=== PATIENT | male | born 1955 | race Caucasian/White ===

== ENCOUNTER 2022-03-08 15:20 | Outpatient (REF) | payer MEDICARE, SELFPAY ==
[2022-03-08 16:15] LABS: Alanine Aminotransferase 44 U/L (0-40); Albumin Level 4.3 g/dL (3.5-5.0); Alkaline Phosphatase 87 U/L (39-117); Anion Gap 14 (12-20); Aspartate Amino Transferase 31 U/L (5-37); Bilirubin Direct 0.2 mg/dL (0.0-0.5); Bilirubin Total 0.5 mg/dL (0.0-1.0); Blood Urea Nitrogen 20 mg/dL (9-16); Calcium 9.6 mg/dL (8.4-10.2); Carbon Dioxide 26 mmol/L (22-29); Chloride 105 mmol/L (96-108); Estimated Glomerular Filt Rate 49; Glucose Random 88 mg/dL (60-115); Potassium 4.5 mmol/L (3.3-5.1); Rheumatoid Factor < 15.0 IU/mL (<15.0); Sodium 140 mmol/L (135-145); Total Protein 7.3 g/dL (6.5-8.0)
[2022-03-08 16:29] LABS: Erythrocyte Sedimentation Rate 10 MM/HR (0-15)
[2022-03-10 01:02] LABS: Lyme Abs Screen <0.90 index
[2022-03-13 19:32] LABS: Acetylcholine Recep Modulating 1
[2022-03-13 22:17] LABS: Acetylcholine Receptor Binding <0.30 nmol/L
[2022-03-13 23:52] LABS: Anti Nuclear Antibody Screen NEGATIVE (NEGATIVE)
[2022-03-16 00:17] LABS: Acetylcholine Recept. Blocking <15 (<15)
== END 2022-03-08 15:21 | disposition home or self-care (01) ==
LOC: HO.LAB 15:20
PROVIDERS: PCP Internal Medicine; Visit Provider Psychiatry & Neurology Neurology
DX: R25.2 Cramp and spasm (principal); H53.2 Diplopia
CPT/HCPCS: 36415; 80048; 80076; 82550; 83519; 85652; 86038; 86039; 86431; 86617; 86618

== ENCOUNTER → 2023-02-22 13:46 | Outpatient (BNVA) | payer MEDICARE, SELFPAY | PROVIDERS: PCP Internal Medicine; Visit Provider Physician Assistant | DX: M54.50 Low back pain, unspecified (principal); M25.552 Pain in left hip; M25.551 Pain in right hip; M79.604 Pain in right leg; M79.605 Pain in left leg; Z98.890 Other specified postprocedural states | CPT/HCPCS: 99212 ==

== ENCOUNTER 2023-06-03 12:44 | Outpatient (AMB) | payer MEDICARE, SELFPAY ==
--- NOTE | 2023-06-03 13:01 | MHC.OFFVIS ---
Intake Vital Signs 06/03/23 13:07 Height 6 ft 1 in Weight 235 lb 3.732 oz BMI 31.0 BP 143/74 H Blood Pressure Location Lt brachial Position Sitting Pulse 71 Pulse Source Pulse Oximeter Temp 96.8 F Temp Source Skin Pulse Oximetry (%) 97 Oxygen Delivery Method Room Air Intake Visit Reasons: Dorsalgia Intake Note: New patient here for back pain. c/o generalized joint and upper/lower extremety pain. Medical Service Representative Required: No Accompanied by: Self / Same As Patient Allergies atorvastatin Allergy (Verified 06/03/23 13:13) Muscle cramps HPI HPI Comments History of Present Illness Details The patient presents for evaluation of widespread pains, muscle spasm, catching of the muscles, and a positive rheumatoid factor. I had seen him almost 3 years ago for similar complaints. There was no obvious sign of any inflammatory arthritis. There was evidence for osteoarthritis particularly in the cervical and lumbar spinal regions. He has seen numerous specialties for this problem including 2 neurologists, physical Medicine, back surgeons, and Orthopedics. He has had 2 neck surgeries and 1 lumbar surgery but he does not think his symptoms were much better after those. He presently takes gabapentin 100 b.i.d., lidocaine patches, p.r.n. lorazepam, and nighttime tizanidine. [facility] Medical History (Updated 06/03/23 @ 17:47 by Cheko Wiley MD) Asthma Chronic kidney disease, stage 3 COPD (chronic obstructive pulmonary disease) GERD (gastroesophageal reflux disease) High cholesterol History of dementia Sleep apnea Surgical History Hx of decompressive lumbar laminectomy Family History (Updated 06/03/23 @ 13:16 by YUE Ornelas) Mother Arthritis Father Arthritis Social History (Updated 06/03/23 @ 13:15 by YUE Ornelas) Household Members: Family Household Members Other:: cousin Alcohol intake: never Patient Tobacco Use Status: Never used Tobacco Current occupational status: unemployed Review of Systems Const Details: Fatigue with physical activity. Negative for appetite change, weight change, fever, chills, malaise Eyes Details: Some ocular dryness. Occasional headache. Occasional vertigo. Negative for vision changes ENT Details: Some oral dryness. Negative for hearing change, tinnitus, oral ulcer, nose bleeds. Card Details: Negative chest pain, edema and syncope Resp Details: History of asthma but no increase in SOB, cough and wheezing GI Details: Dark stools attributed to iron, some constipation and diarrhea alternating. Negative indigestion/heartburn, nausea, abdominal pain, bowel changes, and bloody stool. Details: Negative for dysuria, hematuria, nocturia, decreased force/flow and genital discharge Skin/Breast Details: Negative for itching, rash, hives, Raynaud's symptoms, sun sensitivity, and skin cancer Neuro Details: Describes episodes of muscle spasm and catching of muscles. This has been going on for years. Negative for epilepsy, palsy, stroke, changes in speech, tingling and weakness Psych Details: Treated for anxiety and depression. Endo Details: Negative for polyuria and polydypsia Tono/Lymph Details: Negative for excessive bruising or bleeding. Physical Exam Vital Signs: Last Vital Signs Temp 96.8 F 06/03/23 13:07 Pulse 71 06/03/23 13:07 BP 143/74 H 06/03/23 13:07 Pulse Ox 97 06/03/23 13:07 Oxygen Delivery Method Room Air 06/03/23 13:07 BMI result Body Mass Index 31.0 APPEARANCE: Patient in no acute distress EYES no redness, pupils equal and reactive to light, eyelids normal EARS: External ear normal, canal clear and tympanic membrane normal. NOSE/SINUS: Airflow through both nares, no nasal discharge, no bleeding THROAT: Oral mucosa moist, no ulcerations NECK: No thyromegaly or masses, no adenopathy, trachea midline. HEART: Regulrar rhythm, S1-S2 heard, no murmurs, rubs or gallops. LUNG: Clear to percussion and auscultation ABD: Normal bowel sounds, no organomegaly, masses or tenderness. EXTREMITIES: No edema, no calf tenderness, normal peripheral pulses. NEURO: Oriented and alert x3. No focal weakness. Reflexes symmetric. Gait normal. SKIN: No inflammatory or neoplastic lesions. The nails look normal. Finger tips and toe tips have normal color and turgor JOINT EXAM:?? Cervical Spine: The very limited range of motion, perhaps 10 degrees and lateral flexion and 15 degrees with rotation. With his heels to the wall he lacks about 10 cm from him being able to touch the occiput against the wall. Thoracic Spine:.? No scoliosis.? No tenderness on palpation. Lateral Brennen's is normal. Lumbar Spine:.? Alignment normal.? Brennen's test is 0. He flexes at the hips. Chest Wall:.? No tenderness, swelling, increased warmth or erythema. Hands:.? Right: There is slight bony enlargement at the 2nd and 3rd DIP and the 1st IP. The joints are not tender. No sensory loss, thenar atrophy or flexor tendon triggering. Left: Nontender bony enlargement at the thumb IP, 2nd PIP, 2nd and 3rd D IP's. No MCP swelling or tenderness, triggering, thenar atrophy or sensory loss. Wrists:.? Pain-free flexion extension to 75 degrees. No tenderness, swelling, increased warmth or erythema. Elbows:. Normal pain-free range of motion without tenderness, swelling, increased warmth or erythema. Shoulders:.?? Full range of motion with mild discomfort at the extremes. This is mostly felt in the axillary region and over the trapezius. There is some trapezial muscle tenderness but no abductor weakness, swelling, increased warmth or erythema. Hips:.? Full range of motion with mild discomfort in the lumbar region with extremes of abduction and external rotation. No groin pain with motion. Hip bursa:.? Mild trochanteric tenderness. Knees:.?? Normal pain-free range of motion without tenderness, swelling, increased warmth or erythema.? There is no effusion or crepitation Ankles:.? Normal pain-free range of motion without tenderness, swelling, increased warmth or erythema. Feet:.? Normal pain-free range of motion with mild 1st MTP bony enlargement without tenderness. No other areas of tenderness, swelling, increased warmth or erythema. Tender points:.? Mild tenderness to digital palpation at the occiput, trapezius, second rib, lateral epicondyle, knees, greater trochanter and gluteal area bilaterally. ? Results Reviewed Results Reviewed: 05/22/2023 lab work from [place]: Hemoglobin 15, white count 6000, platelet count [id number], ESR 33, creatinine 1.5, transaminases normal, iron saturation 21%, Lyme disease antibody negative, JACINTA negative. Rheumatoid factor positive at 21 Laboratory Tests 03/08/22 03/08/22 15:45 15:45 Total Creatine Kinase 352 H Rheumatoid Factor < 15.0 JACINTA Screen NEGATIVE [facility] Result Report Patient: Pete Ceballos Date of Service: 02/17/19 ? ? Patient Gender: Male Ordering Provider: Pete Gonzalez : 1955 ? ? ? Final MRI OF LUMBAR SPINE NO CONTRAST Exam Date: 02/17/2019 3:10 PM Ordering Diagnosis: Lumbar radiculitisChronic bilateral low back pain with bilateral sciaticaSpinal stenosis of lumbar region with neurogenic claudication ? MRI LUMBAR SPINE WITHOUT IV CONTRAST ? INDICATION: Low back pain, lumbar radiculitis, right worse than left, spinal stenosis. ? TECHNIQUE: Multiplanar, multisequence MRI of the lumbar spine was performed without IV contrast. ? COMPARISON: Multiple prior MRI lumbar spine studies, most recent dated 11/17/2015. ? FINDINGS: ? The conus medullaris terminates at the L1 level, and demonstrates normal signal. There is multilevel central clumping of cauda equina nerve roots without thickening. ? There is loss of expected T2 intervertebral disc signal at all levels from L2-3 through L5-S1, representing multilevel disc degeneration. Loss of intervertebral disc height with adjacent endplate irregularity and degenerative Modic signal changes at the L3-4 and L4-5 levels appears similar compared to 11/17/2015. Several small Schmorl's nodes, including along the superior endplates of L3 and L4 are also similar. Minimal degenerative patchy bone marrow edema along the inferior endplate of L3. Otherwise, no focal bone marrow edema, evidence of acute fracture or subluxation. Shortened pedicles throughout with diffuse congenital narrowing of the spinal canal. Peripherally T1/T2 hypointense, centrally T2 hyperintense lesion within the right iliac bone, adjacent to the sacroiliac joint corresponds to benign-appearing, sclerotic rimmed lesion on CT scan from 05/26/2018. ? Evaluation of individual disc levels is as follows: ? At T12-L1, no significant disc herniation, spinal canal stenosis, or neuroforaminal narrowing. The T12-L1 level is included only on the sagittal images. ? At L1-L2, minimal diffuse disc bulge with superimposed small central disc protrusion indents the ventral thecal sac. Mild bilateral facet and ligamentous hypertrophy. Overall, mild spinal canal stenosis with mild bilateral neural foraminal narrowing. No definite focal nerve root compression. The L1-L2 level is included only on the sagittal images. ? At L2-L3, diffuse disc bulge with superimposed central disc protrusion with slight craniad extrusion, extending 4.3 mm posterior to the L2 vertebral body results in indentation of the ventral thecal sac. When combined with bilateral facet and ligamentous hypertrophy, there is severe spinal canal stenosis with central clumping of cauda equina fibers and effacement of CSF signal (axial series 601, image 30/34), progressed slightly compared to the 2016 exam. There is [id number] bilateral neuroforaminal narrowing with close approximation of hypertrophied facet joints and the exiting bilateral L2 nerve roots (sagittal series 301, images 6 and 14/19). No definite focal compression of the exiting nerve roots. ? At L3-L4, loss of intervertebral disc height, diffuse disc bulge and prominent posterior and lateral endplate spurring combined with bilateral facet/ligamentous hypertrophy to produce moderate to severe spinal canal stenosis with narrowing of both lateral recesses, similar in appearance compared to 11/17/2015. There is moderate bilateral neuroforaminal narrowing with close approximation of disc material or osteophyte and the exiting bilateral L3 nerve roots (sagittal series 301, images 4, 5, 14 and 15/19). ? At L4-L5, loss of intervertebral disc height, diffuse disc bulge, and prominent posterior and lateral endplate spurring combined with bilateral facet/ligamentous hypertrophy to produce moderate spinal canal stenosis with narrowing of both lateral recesses. There is moderate bilateral neuroforaminal narrowing with close approximation of disc material or osteophyte and the exiting bilateral L4 nerve roots (sagittal series 301, images 5 and 16/19). ? At L5-S1, diffuse disc bulge, bilateral facet and ligamentous hypertrophy result in mild spinal canal stenosis with mild bilateral, left greater than right, neural foraminal narrowing. Close approximation of disc material and the exiting bilateral L5 nerve roots (sagittal series 301, images 4 and 15/19). No definite focal nerve root compression. Ovoid, T2 hyperintense synovial cyst projects posteromedially from the right facet joint measuring up to 1.1 cm (sagittal series 501, image 10/15). ? Ovoid, T2 hyperintense cyst at the left kidney is incompletely included on the zganz-jt-vkaj, measuring at least 4.3 x 5 cm, better characterized on prior CT scan from 05/26/2018. The remaining included intra-abdominal structures and paraspinal soft tissues are unremarkable. ? IMPRESSION IMPRESSION: 1. Multilevel discogenic and degenerative changes, as detailed above, with slight interval progression compared to the 2016 exam. There is now severe spinal canal stenosis with central clumping of cauda equina fibers at the L2-3 level. Moderate to severe spinal canal stenosis at L3-4 with moderate spinal canal stenosis at L4-5. 2. Moderate bilateral neuroforaminal narrowing at L3-4 and L4-5. Xpkk-dz-vbykagac bilateral neural foraminal narrowing at L2-3. There is close approximation of disc material, osteophyte or hypertrophied facet joints and several exiting nerve roots, as detailed above, without definite compression. 3. Additional findings, as above, including large left renal cyst, partially included on the clita-ku-bxyu. ? Reading Radiologist: Cc: Assessment & Plan Assessment & Plan (1) Back pain: Code(s): M54.9 - Dorsalgia, unspecified (2) Muscle stiffness: Code(s): M62.89 - Other specified disorders of muscle (3) Rheumatoid factor positive: Code(s): R76.8 - Other specified abnormal immunological findings in serum Plan The patient has a positive rheumatoid factor but no signs of active rheumatoid arthritis on exam. His longstanding widespread pains without signs of inflammation suggest osteoarthritis and the many tender points suggest some degree of fibromyalgia. I do not have images to review but the thoracic spine image I was able to see does show significant osteophytes in the thoracic spine suggesting some element of DISH. The limited motion in the lumbar and cervical spine regions would also be consistent with DISH but also be consistent with a spondyloarthritis that had led to lumbar and cervical fusion. We will check some sacroiliac films to see if he has evidence for sacroiliitis. I am going to add also add ESR, HLA-B 27, CRP and an anti-JOHNNIE antibody to evaluate for possible stiff man syndrome. I think this is a relatively rare entity but given his complaint of muscles freezing up that is a reasonable thing to pursue. Other than that I do not have other suggestions other than to ask him to try to remain physically active. We will get back to him with the results of the studies. Review of his [place] record with multiple software consultant notes, today's exam and discussion took 46 minutes. Orders: Orders C Reactive Protein Today M54.9 - Dorsalgia, unspecified Complete Blood Count Auto Diff Today M54.9 - Dorsalgia, unspecified Erythrocyte Sedimentation Rate Today M54.9 - Dorsalgia, unspecified HLA B27 Today M54.9 - Dorsalgia, unspecified XR sacroiliac joint min 3V Today M54.9 - Dorsalgia, unspecified Glutamic acid decarboxylase Ab Today M62.89 - Other specified disorders of muscle Coding Level of Care Code Est Pt Level 5 (44682) Diagnoses Back pain M54.9 Muscle stiffness M62.89 Rheumatoid factor positive R76.8
[2023-06-03 13:07] VITALS: BP 143/74; PULSE 71; TEMP 36; O2SAT 97; BMI 31.0
== END 2023-06-03 14:50 | disposition home or self-care (01) ==
PROVIDERS: PCP Internal Medicine; Referring Provider Internal Medicine; Visit Provider Internal Medicine Rheumatology
DX: M54.9 Dorsalgia, unspecified (principal); M05.79 Rheumatoid arthritis with rheumatoid factor of multiple sites without organ or systems involvement; M62.89 Other specified disorders of muscle; R76.8 Other specified abnormal immunological findings in serum
CPT/HCPCS: 99215

== ENCOUNTER 2023-06-03 12:44 | Outpatient (REF) | payer MEDICARE, SELFPAY ==
[2023-06-03 15:16] LABS: MANUAL DIFF FLAG NO
[2023-06-03 16:51] LABS: Basophils Absolute Auto 0.1 X10*3/uL (0.0-0.2); Basophils Percent Auto 0.8 % (0-2); Eosinophils Absolute Auto 0.1 X10*3/uL (0.0-0.4); Eosinophils Percent Auto 1.2 % (0-4); Hematocrit 46.6 % (42.0-52.0); Hemoglobin 15.5 g/dl (14.0-18.0); Imm Gran Abs Auto 0.03 X10*3/uL (0.00-0.03); Imm Gran Pct Auto 0.4 % (0.0-0.4); Lymphocytes Absolute Auto 2.1 X10*3/uL (1.2-4.9); Lymphocytes Percent Auto 28.6 % (20-40); Mean Corpuscular HGB Conc 33.3 g/dl (31.0-36.0); Mean Corpuscular Hemoglobin 29.9 pg (27.0-33.0); Mean Corpuscular Volume 89.8 fL (80.0-98.0); Mean Platelet Volume 10.8 fL (9.4-12.4); Monocytes Absolute Auto 0.6 X10*3/uL (0.1-1.2); Monocytes Percent Auto 8.4 % (2-11); Neutrophils Absolute Auto 4.5 x10*3/uL (2.0-8.3); Neutrophils Percent Auto 60.6 % (45-73); Platelet Count 223 X10*3/uL (160-400); Red Blood Count 5.19 X10*6/uL (4.60-5.80); Red Cell Distribution Width 13.4 % (11.0-16.0); White Blood Count 7.4 X10*3/uL (4.8-10.8)
[2023-06-03 17:29] LABS: Erythrocyte Sedimentation Rate 13 MM/HR (0-15)
[2023-06-03 17:44] LABS: C Reactive Protein 0.53 mg/dL (< or = 0.50)
[2023-06-06 19:08] LABS: Glutamic acid decarboxylase Ab <5 IU/mL (<5)
== END 2023-06-03 12:45 | disposition home or self-care (01) ==
LOC: HO.LAB 12:44
PROVIDERS: PCP Internal Medicine; Visit Provider Internal Medicine Rheumatology
DX: M54.9 Dorsalgia, unspecified (principal); M62.89 Other specified disorders of muscle; R76.8 Other specified abnormal immunological findings in serum
CPT/HCPCS: 36415; 85025; 85652; 86140; 86341; 86812; 99212

== ENCOUNTER 2023-06-19 12:51 | Outpatient (REF) | payer MEDICARE, SELFPAY ==
--- NOTE | ~2023-06-19 | XR_ITS ---
EXAMINATION: XR SACROILIAC JOINTS CLINICAL INFORMATION: There are some larger, unspecified COMPARISON: None available. TECHNIQUE: 3 views of the sacroiliac joints FINDINGS: Mineralization is normal. No fracture is seen. The sacroiliac joints are well-maintained. There is mild adjacent sclerosis. Degenerative disc and facet disease is noted in the lumbar spine. The hip joints are well-maintained but there is mild marginal spurring of the acetabulum, greater on the right. No significant soft tissue abnormality is seen. XR/XR sacroiliac joint min 3V IMPRESSION: Mild degenerative changes in sacroiliac joints. Lower lumbar degenerative disc and facet disease. Mild osteoarthritis in the hips, greater on the right.
== END 2023-06-19 12:52 | disposition home or self-care (01) ==
LOC: HO.XRAY 12:51
PROVIDERS: Visit Provider Internal Medicine Rheumatology
DX: M54.9 Dorsalgia, unspecified (principal)
CPT/HCPCS: 72202

== ENCOUNTER 2024-03-06 12:49 | Outpatient (AMB) | payer MEDICARE, SELFPAY ==
--- NOTE | 2024-03-06 13:09 | A.SPINEOV_ITS ---
Intake Visit Reasons: 2nd opinion on MRI Intake Note: Mr. Ceballos is here today for a 2nd opinion on MRI/[facility]. 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 HPI: This 68-year-old male underwent a previous anterior diskectomy and fusion C3-C5 for severe spinal cord compression. He also underwent a lumbar decompression L4-5 for neurogenic claudication. He returns to my office complaining of severe neck pain radiating to shoulders and up to his posterior neck to his forehead. He also has tingling in his arms. And spasticity of his lower legs. Second complaint is pain going down his legs with walking and standing that improves when he sits down. He saw an orthopedic surgeon at [facility] that wants to give him a posterior instrumented fusion to correct his cervical deformity Physical Exam: An upright position there is a cervical deformity in the sagittal plane. Radiological Studies: MRI of the cervical and lumbar spine done at [facility] on 02/19/2024 show a progression of his cervical deformity in the sagittal plane compared to an MRI of 2021. There is an old myelomalacia. No spinal cord compression. The MRI of the lumbar spine shows severe spinal stenosis L3-4. An x-ray of the cervical spine with a flexion-extension shows auto fusion of C6- 7 and C7-T1 and beginning of an auto fusion at C5-C6. The x-rays also suspicious for auto fusion of the C5-6 and C6-7 facet joints. 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 He was offered a posterior instrumented fusion of the cervical thoracic region to correct the deformity. I do not see how you can correct the deformity when there is auto fusion going on on the frontal part of the spine. To make it more complicated I also think there is auto fusion going on of the posterior part of the spine. This will mean that you 1st have to release the posterior auto fusion followed by release of the anterior fusion with placement of cages and then go back posteriorly to perform the posterior instrumentation if you really want to correct the deformity. I am going to order a CT of the cervical spine to assess the amount of auto fusion before I give him my final surgical pain on the neck. As far as the lumbar spine, I offered him an L3-4 lumbar decompression. I will see the patient after the CT is done. Thank you for allowing me to participate in your patients care. total time spent was 50 minutes in counseling ,coordination of plan, personal review of imaging, surgical decision making and subsequent plan Mitchell Tapia MD, PhD Spine Fellowship Trained Neurosurgeon Director, [facility] Orders: Orders XR cervical spine 2V Today M43.8X2 - Other specified deforming dorsopathies, cervical region CT cervical spine wo IV con Today M43.8X2 - Other specified deforming dorsopathies, cervical region Coding Level of Care Code New Pt Level 4 (58088) Diagnoses [place] neck deformity of cervical spine M43.8X2 Lumbar stenosis with neurogenic claudication M48.062
== END 2024-03-06 14:19 | disposition home or self-care (01) ==
PROVIDERS: PCP Internal Medicine; Visit Provider Neurological Surgery
DX: M43.8X2 Other specified deforming dorsopathies, cervical region (principal); M48.062 Spinal stenosis, lumbar region with neurogenic claudication
CPT/HCPCS: 99204

== ENCOUNTER 2024-03-06 12:49 | Outpatient (REF) | payer MEDICARE, SELFPAY ==
--- NOTE | ~2024-03-06 | XR_ITS ---
EXAMINATION: XR CERVICAL SPINE CLINICAL INFORMATION: Pain cervical region. COMPARISON: None available. TECHNIQUE: 4 views of the cervical spine inclusive of flexion, extension and neutral lateral views as well as an AP view. FINDINGS: Status post ACDF with hardware spanning the C3-C4-C5 levels as well as interdisc devices. Prominent spondylosis in the remainder of cervical spine with loss of disc space height most notable at C6-C7. At C5-C6 there is a kyphosis which is not reduced with extension. Degenerative changes between the anterior arch of C1 and the odontoid. XR/XR cervical spine 2V IMPRESSION: 1. Status post ACDF with hardware spanning the C3-C4-C5 levels as well as interdisc devices. 2. Prominent spondylosis in the remainder of cervical spine with loss of disc space height most notable a C6-C7.
== END 2024-03-06 12:50 | disposition home or self-care (01) ==
LOC: HO.HOSX 12:49
PROVIDERS: PCP Internal Medicine; Visit Provider Neurological Surgery
DX: M43.8X2 Other specified deforming dorsopathies, cervical region (principal); M48.062 Spinal stenosis, lumbar region with neurogenic claudication
CPT/HCPCS: 72040; 99202

== ENCOUNTER 2024-04-01 07:33 | Outpatient (REF) | payer MEDICARE, SELFPAY ==
--- NOTE | ~2024-04-01 | CT_ITS ---
EXAMINATION: CT CERVICAL SPINE WITHOUT CONTRAST CLINICAL INFORMATION: Deforming dose opacities, cervical region COMPARISON: Cervical spine radiographs on 03/06/2024. TECHNIQUE: Multidetector CT acquisitions of the cervical spine without administration of intravenous contrast. This CT examination was performed using dose optimization techniques as appropriate, variously including the following: *Automated exposure control *Adjustment of mA and/or kV according to patient size (this includes techniques or standardized protocols for targeted exams where dose is matched to indication/reason for exam; i.e. extremities or head) *Use of iterative reconstruction technique DLP: 415 mGy-cm FINDINGS: Motion artifact is present. Reversal of the normal cervical lordosis. No listhesis. Sequelae of anterior spinal fusion at C3-C4 and C4-C5. There is osseous bridging at these levels. The hardware is intact without fracture or perihardware lucency to suggest loosening or infection. The vertebral body heights are preserved. Moderate to severe disc height loss at C7-T1. DISH. Please note that evaluation is limited in the absence of intrathecal contrast material. Within these limitations, C2-C3: Disc osteophyte complex, bilateral uncovertebral hypertrophy, and bilateral facet arthrosis. Severe right and moderate left neural foraminal narrowing. No significant spinal canal stenosis. C3-C4: Disc osteophyte complex, bilateral uncovertebral hypertrophy, and bilateral facet arthrosis. Mild spinal canal stenosis. Mild bilateral neural foraminal narrowing. C4-C5: Disc osteophyte, disc, bilateral uncovertebral hypertrophy, and bilateral facet arthrosis. Mild spinal canal stenosis. Mild right neural foraminal narrowing. C5-C6: Disc osteophyte complex, bilateral uncovertebral hypertrophy, and bilateral facet arthrosis. Mild left neural foraminal narrowing. No significant spinal canal stenosis. C6-C7: Disc osteophyte complex, bilateral uncovertebral hypertrophy, and bilateral facet arthrosis. No significant spinal canal or neural foraminal narrowing. C7-T1: Disc osteophyte complex, bilateral uncovertebral hypertrophy, and bilateral facet arthrosis. No significant spinal canal or neural foraminal narrowing. The paravertebral soft tissues are unremarkable. The visualized lung apices are clear. CT/CT cervical spine wo IV con IMPRESSION: -Sequelae of anterior spinal fusion at C3-C4 and C4-C5 without evidence of acute hardware failure. -Multilevel degenerative changes throughout the cervical spine with mild spinal canal stenosis at C3-C4 and C4-C5. Neural foraminal narrowing is worst and severe at C2-C3 on the right.
== END 2024-04-01 07:34 | disposition home or self-care (01) ==
LOC: HO.CT 07:33
PROVIDERS: PCP Internal Medicine; Visit Provider Neurological Surgery
DX: M43.8X2 Other specified deforming dorsopathies, cervical region (principal)
CPT/HCPCS: 72125

== ENCOUNTER 2024-04-24 13:48 | Outpatient (AMB) | payer MEDICARE, SELFPAY ==
--- NOTE | 2024-04-24 14:14 | A.SPINEOV_ITS ---
Intake Visit Reasons: CT follow up Intake Note: Mr. Ceballos is her today to f/u Re: his CT Scan. Curriculum Director Required: No Allergies atorvastatin Allergy (Verified 06/03/23 13:13) Muscle cramps Assessment & Plan Assessment & Plan (1) [place] neck deformity of cervical spine: Code(s): M43.8X2 - Other specified deforming dorsopathies, cervical region Category: Medical Plan Dear colleague, On April 24, 2024 saw for follow-up Pete Ceballos for intolerable neck pain due to a neck deformity. He was offered a posterior decompression with instrumentation and our institution. I thought this was not a good option as he looked fused from anteriorly and posteriorly. I proved this with a CT scan that shows he has an auto fusion of C5-6 and C6-7 as well as the posterior facet joints. Therefore he needs a posterior release of the facet joints with instrumentation followed by an anterior diskectomy fusion C5-6 and C6-7 to obtain a correction of his deformity. I reviewed the imaging with the patient and his daughter and explained my rationale behind the plan. He wants to proceed. He will be scheduled for July 2024. 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 He also needs to discontinue his baby aspirin. I spent 25 minutes in his consult to review imaging and discussing plan of care. Mitchell Tapia MD, PhD Spine Fellowship Trained Neurosurgeon Director, [facility] Coding Level of Care Code Est Pt Level 2 (16677) Diagnoses Ideal neck deformity of cervical spine M43.8X2
== END 2024-04-24 15:00 | disposition home or self-care (01) ==
PROVIDERS: PCP Internal Medicine; Visit Provider Neurological Surgery
DX: M43.8X2 Other specified deforming dorsopathies, cervical region (principal)
CPT/HCPCS: 99212

== ENCOUNTER → 2024-04-24 13:48 | Outpatient (BNVA) | payer MEDICARE, SELFPAY | PROVIDERS: PCP Internal Medicine; Visit Provider Neurological Surgery | DX: M43.8X2 Other specified deforming dorsopathies, cervical region (principal) | CPT/HCPCS: 99212 ==

== ENCOUNTER 2024-06-10 14:20 | Outpatient (AMB) | payer MEDICARE, SELFPAY ==
--- NOTE | 2024-06-10 14:21 | A.SPINEOV_ITS ---
Intake Visit Reasons: discuss disease of spine Intake Note: Mr. Ceballos is here to discuss diagnosis. 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 He comes in complaining of diffuse pains in his arms or legs with restless legs and arms at night and stabbing pains in his hips. I told him that this could all be related to his previous spinal cord compression but that I do not have a solution for all these symptoms. A briefly discuss the upcoming surgery to correct his cervical deformity. We will also make a preoperative appointment with the assembler aircraft power plant. Unfortunately, I do not have the answers that he is looking for. Mitchell Tapia MD, PhD Spine Fellowship Trained Neurosurgeon Director, [facility] Coding Level of Care Code Est Pt Level 2 (76118) Diagnoses [place] neck deformity of cervical spine M43.8X2
== END 2024-06-10 15:29 | disposition home or self-care (01) ==
PROVIDERS: PCP Internal Medicine; Visit Provider Neurological Surgery
DX: M43.8X2 Other specified deforming dorsopathies, cervical region (principal)
CPT/HCPCS: 99212

== ENCOUNTER → 2024-06-10 14:20 | Outpatient (BNVA) | payer MEDICARE, SELFPAY | PROVIDERS: PCP Internal Medicine; Visit Provider Neurological Surgery | DX: M43.8X2 Other specified deforming dorsopathies, cervical region (principal) | CPT/HCPCS: 99212 ==

== ENCOUNTER 2024-07-29 06:20 | Observation (INO) | payer MEDICARE, SELFPAY ==
[2024-07-15 11:19] VITALS: BMI 31.2
--- NOTE | 2024-07-21 13:23 | HO.ANESPROP2 ---
Documented by User: Cande Murillo NP 07/24/24 14:01 HPI - Anesthesia Eval Consult details Narrative: 68yo M for C5-6,C6-7 Posterior Foraminotomy/Facetectomy, Ant Cerv Discectomy w/ fusion Lateral Mass Screws at C5-T1, 07/29/24 Follow [facility]. Optimized for surgery. (Nuc stress d/t patient complaint of GIFFORD done 07/2024 was WNL ) Follows pulmo for NEO and COPD/asthma. Stable at 04/2024 with CPAP use QHS and rare albuterol use. PMF Active Problems Active Problems: All Active Problems Lumbar stenosis with neurogenic claudication (Acute) [place] neck deformity of cervical spine (Acute) Rheumatoid factor positive (Acute) Muscle stiffness (Acute) Back pain (Acute) Past Medical History Medical History (Updated 07/15/24 @ 10:48 by Fany Freitas, RN) Fatty liver Thoracic and lumbosacral neuritis Abnormality of gait Dysplastic nevi Tear of supraspinatus tendon Renal cyst Adjustment disorder with mixed anxiety and depressed mood Mixed hyperlipidemia Cognitive impairment Lung nodule Cervical radiculopathy Spinal stenosis of lumbar region Nuclear sclerosis of both eyes Elevated PSA Disorder of both eustachian tubes Bilateral tinnitus Cellulitis of left ear Posterior rhinorrhea Dizziness and giddiness Habitual snoring Obesity (BMI 30-39.9) Methacholine challenge positive Gallbladder polyp Hepatomegaly Dysphagia Otalgia of both ears Cervical spinal stenosis Acute frontal sinusitis Bilateral acute serous otitis media Chronic pharyngitis Muscle cramps Herpes simplex infection Sensorineural hearing loss of both ears Migraine Neck pain Mixed conductive and sensorineural hearing loss of right ear Heart murmur Dyspnea on exertion HTN (hypertension) Arthritis Impingement syndrome of shoulder region Incomplete tear of right rotator cuff Epigastric discomfort Osteoarthritis Peripheral neuropathy Sensation of lump in throat Allergic rhinitis Lumbar radiculopathy Muscle twitch Sleep apnea Asthma COPD (chronic obstructive pulmonary disease) High cholesterol GERD (gastroesophageal reflux disease) Chronic kidney disease, stage 3 History of dementia Family History Family History (Updated 06/03/23 @ 13:16 by YUE Correia) Mother Arthritis Father Arthritis Surgical History Surgical History (Updated 07/14/24 @ 08:35 by Fany Freitas, CARRI) Hx of nasal septoplasty Hx of umbilical hernia repair History of esophagogastroduodenoscopy (EGD) Hx of shoulder surgery Hx of neck surgery Hx of hernia repair H/O colonoscopy Status post lumbar spinal fusion Hx of decompressive lumbar laminectomy Social History Social History (Updated 06/03/23 @ 13:15 by YUE Correia) Household Members: Family Household Members Other:: cousin Are you a primary care manager to a significant other at home: No Do you presently have visiting nurse or other home services: No Alcohol intake: never Patient Tobacco Use Status: Never used Tobacco Use of substances other than those prescribed or required for medical reasons: No Have you been hit, kicked, punched, or otherwise hurt by someone within the past year? If so, by whom?: No Are you DNR?: No Advance Directives: No Advance Directives Information Provided: Yes Advance Directives on File: No Recently lost weight without trying: No Eating poorly because of decreased appetite: No Nutrition Risks: No Nutritional Risk Poor oral hygiene: No Current occupational status: unemployed Meds Allergies Allergy/AdvReac Type Severity Reaction Status Date / Time adhesive tape Allergy Itching Verified 07/29/24 06:20 atorvastatin Allergy Muscle Verified 07/29/24 06:20 cramps mite-Dermatophagoides Allergy Unknown Verified 07/29/24 06:20 farinae, thomas [dust mite - [place]] pravastatin Allergy Unknown Verified 07/29/24 06:20 Home Medications ?Medication ?Instructions ?Recorded ?Confirmed ?Last Taken ?Type albuterol sulfate 90 mcg/actuation 2 puff inhalation Q4-6H PRN 05/31/23 07/29/24 Unknown History aerosol inhaler Shortness Of Breath Or Wheezing cholecalciferol (vitamin D3) 25 25 mcg PO DAILY 05/31/23 07/29/24 Unknown History mcg (1,000 unit) tablet (Vitamin D3) dicyclomine 10 mg capsule 10 mg PO DAILY PRN Abdominal 05/31/23 07/29/24 Unknown History Discomfort ezetimibe 10 mg tablet 10 mg PO DAILY cholesterol 05/31/23 07/29/24 Unknown History losartan 25 mg tablet 25 mg PO DAILY 05/31/23 07/29/24 07/29/24 04:30 History tizanidine 4 mg tablet 4 mg PO BEDTIME 05/31/23 07/29/24 Unknown History aluminum-mag hydroxide-simethicone 30 ml PO QID PRN Acid Reflux 06/03/23 07/29/24 Unknown History 200 mg-200 mg-20 mg/5 mL oral susp (Valeria-Lanta) carboxymethylcellulose sodium 0.5 1 drp ophthalmic (eye) TID 06/03/23 07/29/24 Unknown History % eye drops in a dropperette cyanocobalamin (vitamin B-12) 1,000 mcg PO DAILY 06/03/23 07/29/24 Unknown History 1,000 mcg capsule evolocumab 140 mg/mL subcutaneous 140 mg subcut .every 14 days 06/03/23 07/29/24 Unknown History pen injector (Girma Waggoner) fluticasone 500 mcg-salmeterol 50 1 inh inhalation BID 06/03/23 07/29/24 Unknown History mcg/dose blistr powdr for inhalation (Wixela Inhub) hydrocortisone 2.5 % topical cream 1 appl topical .COMPLEX PRN Itching 06/03/23 07/29/24 Unknown History ketoconazole 2 % shampoo 1 appl topical 2XW PRN Skin 06/03/23 07/29/24 Unknown History Irritation lidocaine 5 % topical patch 1 patch topical DAILY PRN Pain 06/03/23 07/29/24 Unknown History magnesium citrate 100 mg tablet 100 mg PO DAILY 06/03/23 07/29/24 Unknown History montelukast 10 mg tablet 10 mg PO BEDTIME PRN Allergy 06/03/23 07/29/24 Unknown History Symptoms pantoprazole 20 mg tablet,delayed 20 mg PO .COMPLEX 06/03/23 07/29/24 07/29/24 04:30 History release zinc gluconate 50 mg tablet 25 mg PO DAILY 06/03/23 07/29/24 Unknown History multivitamin 1 tab PO DAILY 07/15/24 07/29/24 Unknown History Exam Height,Weight and Vital Signs: Height 6 ft Weight 104.326 kg Pertinent Lab Results Pertinent Lab Results: CMP and CBC 04/2024 OK from outside facility (within pcp note) Creat 1.5 (CKD 3) Narrative Narrative: EKG 07/2024 NSR @ 76 Low volt QRS Septal infarct No signif change per community center worker Nuc Stress 07/2024 Nml perfusion with no defect to suggest ischmia or infarct. Nml LV function. ECHO 07/2024 Definity contrast used to delineate endocardial borders. Nml LV chamber size, concentric hypertrophy, nml regional wma, EF 60-65%, trace mitral insufficiency, mild dilatation of ascending aorta. No change c/w previous. Assessment and Plan Assessment Anesthesia Assessment: Chart Reviewed Documented by User: Alicia Goodwin MD 07/29/24 08:58 [facility] Past Medical History Medical History (Updated 07/15/24 @ 10:48 by Fany Freitas, RN) Fatty liver Thoracic and lumbosacral neuritis Abnormality of gait Dysplastic nevi Tear of supraspinatus tendon Renal cyst Adjustment disorder with mixed anxiety and depressed mood Mixed hyperlipidemia Cognitive impairment Lung nodule Cervical radiculopathy Spinal stenosis of lumbar region Nuclear sclerosis of both eyes Elevated PSA Disorder of both eustachian tubes Bilateral tinnitus Cellulitis of left ear Posterior rhinorrhea Dizziness and giddiness Habitual snoring Obesity (BMI 30-39.9) Methacholine challenge positive Gallbladder polyp Hepatomegaly Dysphagia Otalgia of both ears Cervical spinal stenosis Acute frontal sinusitis Bilateral acute serous otitis media Chronic pharyngitis Muscle cramps Herpes simplex infection Sensorineural hearing loss of both ears Migraine Neck pain Mixed conductive and sensorineural hearing loss of right ear Heart murmur Dyspnea on exertion HTN (hypertension) Arthritis Impingement syndrome of shoulder region Incomplete tear of right rotator cuff Epigastric discomfort Osteoarthritis Peripheral neuropathy Sensation of lump in throat Allergic rhinitis Lumbar radiculopathy Muscle twitch Sleep apnea Asthma COPD (chronic obstructive pulmonary disease) High cholesterol GERD (gastroesophageal reflux disease) Chronic kidney disease, stage 3 History of dementia Family History Family History (Updated 06/03/23 @ 13:16 by YUE Correia) Mother Arthritis Father Arthritis Surgical History Surgical History (Updated 07/14/24 @ 08:35 by Fany Freitas, RN) Hx of nasal septoplasty Hx of umbilical hernia repair History of esophagogastroduodenoscopy (EGD) Hx of shoulder surgery Hx of neck surgery Hx of hernia repair H/O colonoscopy Status post lumbar spinal fusion Hx of decompressive lumbar laminectomy History of Problems with Anesthesia: No Social History Social History (Updated 06/03/23 @ 13:15 by YUE Correia) Household Members: Family Household Members Other:: cousin Are you a primary care manager to a significant other at home: No Do you presently have visiting nurse or other home services: No Alcohol intake: never Patient Tobacco Use Status: Never used Tobacco Use of substances other than those prescribed or required for medical reasons: No Have you been hit, kicked, punched, or otherwise hurt by someone within the past year? If so, by whom?: No Are you DNR?: No Advance Directives: No Advance Directives Information Provided: Yes Advance Directives on File: No Recently lost weight without trying: No Eating poorly because of decreased appetite: No Nutrition Risks: No Nutritional Risk Poor oral hygiene: No Current occupational status: unemployed Meds Allergies Allergy/AdvReac Type Severity Reaction Status Date / Time adhesive tape Allergy Itching Verified 07/29/24 06:20 atorvastatin Allergy Muscle Verified 07/29/24 06:20 cramps mite-Dermatophagoides Allergy Unknown Verified 07/29/24 06:20 farinae, thomas [dust mite - [place]] pravastatin Allergy Unknown Verified 07/29/24 06:20 Home Medications ?Medication ?Instructions ?Recorded ?Confirmed ?Last Taken ?Type albuterol sulfate 90 mcg/actuation 2 puff inhalation Q4-6H PRN 05/31/23 07/29/24 Unknown History aerosol inhaler Shortness Of Breath Or Wheezing cholecalciferol (vitamin D3) 25 25 mcg PO DAILY 05/31/23 07/29/24 Unknown History mcg (1,000 unit) tablet (Vitamin D3) dicyclomine 10 mg capsule 10 mg PO DAILY PRN Abdominal 05/31/23 07/29/24 Unknown History Discomfort ezetimibe 10 mg tablet 10 mg PO DAILY cholesterol 05/31/23 07/29/24 Unknown History losartan 25 mg tablet 25 mg PO DAILY 05/31/23 07/29/24 07/29/24 04:30 History tizanidine 4 mg tablet 4 mg PO BEDTIME 05/31/23 07/29/24 Unknown History aluminum-mag hydroxide-simethicone 30 ml PO QID PRN Acid Reflux 06/03/23 07/29/24 Unknown History 200 mg-200 mg-20 mg/5 mL oral susp (Valeria-Lanta) carboxymethylcellulose sodium 0.5 1 drp ophthalmic (eye) TID 06/03/23 07/29/24 Unknown History % eye drops in a dropperette cyanocobalamin (vitamin B-12) 1,000 mcg PO DAILY 06/03/23 07/29/24 Unknown History 1,000 mcg capsule evolocumab 140 mg/mL subcutaneous 140 mg subcut .every 14 days 06/03/23 07/29/24 Unknown History pen injector (Girma Waggoner) fluticasone 500 mcg-salmeterol 50 1 inh inhalation BID 06/03/23 07/29/24 Unknown History mcg/dose blistr powdr for inhalation (Wixela Inhub) hydrocortisone 2.5 % topical cream 1 appl topical .COMPLEX PRN Itching 06/03/23 07/29/24 Unknown History ketoconazole 2 % shampoo 1 appl topical 2XW PRN Skin 06/03/23 07/29/24 Unknown History Irritation lidocaine 5 % topical patch 1 patch topical DAILY PRN Pain 06/03/23 07/29/24 Unknown History magnesium citrate 100 mg tablet 100 mg PO DAILY 06/03/23 07/29/24 Unknown History montelukast 10 mg tablet 10 mg PO BEDTIME PRN Allergy 06/03/23 07/29/24 Unknown History Symptoms pantoprazole 20 mg tablet,delayed 20 mg PO .COMPLEX 06/03/23 07/29/24 07/29/24 04:30 History release zinc gluconate 50 mg tablet 25 mg PO DAILY 06/03/23 07/29/24 Unknown History multivitamin 1 tab PO DAILY 07/15/24 07/29/24 Unknown History Exam Airway Mallampati Class: IV TM Dist: >3cm Neck ROM: Poor Loose/Missing/Broken Teeth: No Heart: RRR Lungs: CTA Assessment and Plan Assessment Anesthesia Assessment: Anesthesia Plan Discussed Final Anesthetic Review History of Problems with Anesthesia: No NPO: Yes ASA Class: II and III Final Preanesthetic Review: Meds/Allgs Chart Reviewed, Consent Obtained/Reviewed and Anes Risks/Benef Reviewed Patient Risk: Intermediate Procedure Risk: High Anesthetic Plan Anesthetic Plan: GA Disposition: Standard PACU
[2024-07-29] VITALS (11 sets, daily range): BP systolic 122–158; BP diastolic 60–85; PULSE 77–91; RESP 15–18; TEMP 36.1–36.9; O2SAT 94–99
--- NOTE | ~2024-07-29 | FL_ITS ---
EXAMINATION: INTRAOPERATIVE FLUOROSCOPY CERVICAL SPINE CLINICAL INFORMATION: C5-C7 post form C5-T1 ACDF. COMPARISON: CT cervical spine 04/01/2024. TECHNIQUE: Intraoperative fluoroscopic imaging was provided to Dr. Hugo Tapia during C5-T1 ACDF. Total radiographic images: 4 Exposure time: 25.5 seconds Dose area product: 2.8058 Gy-cm2 CT performed intraoperatively:No FINDINGS/ FL/FL guidance in OR IMPRESSION: Multiple intraoperative fluoroscopic images and/or radiographs demonstrate stages of C5-T1 ACDF. ACDF hardware is present as are posterior fusion screws and rods. Please see Dr. Tapia' operative note for detailed findings. Electronically signed by: Pierre De aL Torre MD 07/30/2024 12:22 PM EDT
--- NOTE | ~2024-07-29 | XR_ITS ---
EXAMINATION: XR CERVICAL SPINE CLINICAL INFORMATION: Status post cervical fusion. COMPARISON: Cervical spine CT dated 04/01/2024. Intraoperative fluoroscopic radiographs dated 07/29/2024. TECHNIQUE: AP and lateral views of the cervical spine. FINDINGS: Redemonstration of anterior fusion hardware at C3-C4 and C4-C5. Associated osseous fusion of the vertebral bodies and posterior elements is redemonstrated. Interval placement of anterior stabilization hardware at C5-C6 and C6-C7 with posterior stabilization hardware at C5 through C7 on the right and C5-C6 on the left. No hardware fracture. No perihardware lucency to suggest loosening or infection. No acute fracture or dislocation. No concerning lytic or blastic osseous lesion. Unremarkable prevertebral soft tissues. No radiopaque foreign body. Air within the posterior soft tissues consistent with recent surgery. XR/XR cervical spine 2V IMPRESSION: Anterior stabilization hardware at C3-C5 with posterior stabilization hardware at C5-C6 and C6-C7 on the right and C5-C6 on the left. No evidence of complication. Electronically signed by: Sourav Muller MD 07/30/2024 11:35 AM EDT
--- OUTSIDE RECORDS SUMMARY | 2024-07-29 05:53 | XMS_ITS | Continuity of Care Document ---
Author Organization [facility] Address [address] [place] [address]- Care Team Providers Care Physics Department Chair Name Role Phone Not on Staff, PCP Primary Care Physician Unavail able Encounter 03/24/24 - 03/31/24 [facility] [address], [address] [place] [address]- Attending Physician: Fareed Carpenter Admitting Physician: Fareed Carpenter Referring Physician: Fareed Carpenter Allergies, Adverse Reactions, Alerts Substance Reaction Severity Status Other Environmental Allergy sneezing Active Medications Aerochamber See Instructions, # 1 applicator, Maintenance, Use with MDI's, 11/12/14 8:58:49, Compound Start Date: 11/12/14 Status: Ordered cyclobenzaprine 10 mg oral tablet See Instructions, PRN for spasm, 1 tablet By Mouth at bedtime prn, 0 Refills, Maintenance, 05/19/1410:31:20, Tablet Start Date: 05/19/14 Status: Ordered donepezil 5 mg oral tablet 1 tablet = 5 mg, By Mouth, Daily at bedtime, 0 Refills, Maintenance Start Date: 09/26/11 Status: Ordered fenofibrate 200 mg oral capsule 1 capsule, By Mouth, Daily, # 30 capsule, 0 Refills, Capsule Start Date: 11/30/09 Status: Ordered Flonase 1 sprays, Daily, 0 Refills Start Date: 11/10/09 Stop Date: 12/10/09 Status: Ordered hydrocortisone 2.5% topical cream 1 application, Topically, 3 times a day, # 30 Gm, 0 Refills, Maintenance, 08/10/20 9:20:00 EDT, Cream Start Date: 08/10/20 Status: Ordered lovastatin 20 mg oral tablet 1 tablet = 20 mg, By Mouth, Daily, at bedtime, # 30 tablet, 0 Refills, Maintenance, 05/19/14 10:30:49, Tablet Start Date: 05/19/14 Status: Ordered Multivitamin 1 tablet, By Mouth, Daily, 0 Refills, Maintenance Start Date: 09/26/11 Status: Ordered pantoprazole 40 mg oral enteric coated tablet 1 tablet = 40 mg, By Mouth, Daily, 0 Refills, Maintenance Start Date: 09/26/11 Status: Ordered ProAir HFA 90 mcg/inh inhalation aerosol with adapter 1 puffs, Inhalation, 4 times a day, PRN for wheezing, # 8.5 Gm, 0 Refills, Maintenance, 05/19/14 10:32:07, Aerosol Start Date: 05/19/14 Status: Ordered Qvar 80 mcg/inh inhalation aerosol with adapter 2 puffs, Inhalation, 2 times a day, # 1 each, 11 Refills, Maintenance, 11/12/14 9:00:13, 2 puffs Inhalation 2 times a day Start Date: 11/12/14 Status: Ordered rosuvastatin 20 mg oral tablet 1 tablet = 20 mg, By Mouth, Daily, # 30 tablet, 0 Refills, Maintenance, 08/10/20 9:21:00 EDT, Tablet Start Date: 08/10/20 Status: Ordered Vitamin B12 0 Refills, Maintenance, 08/10/20 9:21:00 EDT Start Date: 08/10/20 Status: Ordered Vitamin D3 1000 intl units oral tablet 1 tablet = 1,000 International_Units, By Mouth, Daily, # 30 tablet, 0 Refills, Maintenance, 05/19/14 10:31:52, Tablet Start Date: 05/19/14 Status: Ordered Zinc = 140 mg, By Mouth, Daily, 0 Refills, Maintenance, 08/10/20 9:21:00 EDT Start Date: 08/10/20 Status: Ordered Problem List Condition Confirmation Course Effective Dates Status Health St atus Informant Cervical spinal stenosis Confirmed Active Chronic kidney disease stage 3 Confirmed Active Results Radiology Reports * Exam Date Time Procedure Performing Provider Status 03/24/24 2:48 PM US Retroperitoneum Comp Toby Whitt; Jose (Verified) Notes: (US Retroperitoneum Comp) Reason For Exam: Cyst of kidney, acquired RESULT: US Retroperitoneum Comp US Retroperitoneum Comp Study performed at [facility] [address] [place] [address]. Reason: Cyst of kidney, acquired. COMPARISON: Renal ultrasound 07/27/2022; MRI Abdomen 07/21/2014. FINDINGS: Right kidney: 13.0 cm in length. No hydronephrosis. Normal parenchymal thickness and echotexture. No stones. No suspicious mass. Two simple cysts in the upper pole measuring up to 0.9 cm. Left kidney: 13.0 cm in length. No hydronephrosis. Normal parenchymal thickness and echotexture. Nostones. No suspicious mass. Large cyst with thin septation in the upper pole measures 7.2 x 6.4 x 7.6 cm, previously measured up to 9.8 cm. This is likely not significantly changed given differences in technique. An additional lesion with multiple septations is visualized in the upper pole measuring 3.4 x 3.2 x 3.6 cm, not previously documented. There is no significant internal vascularity identified on color Doppler imaging. Urinary bladder: Normal morphology. No stone, mass, wall thickening or debris. Prevoid volume approximately 367 cc. Bilateral ureteral jets are identified on color Doppler imaging suggesting ureterovesicular junction patency. Prostate: 4.8 x 3.9 x 5.1 cm, volume 49.7 cc. IMPRESSION: Septated lesion in the upper pole of the left kidney measuring up to 3.6 cm is not well-characterized sonographically and considered indeterminant. Renal mass protocol CT or MRI is recommended for further characterization. Additional bilateral renal cysts measuring up to 0.9 cm in the right and 7.6 cm on the left. WSN: [id number] Ordering Physician: Fareed Jordan Dictated By: Lázaro Granado MD Dictated Date/Time: 03/24/24 4:38 pm Reviewed By: Lázaro Granado MD Signed By: Lázaro Granado MD Signed Date/Time: 03/24/24 4:38 pm Transcribed By: PRIYA Transcribed Date/Time: 03/24/24 4:19 pm Social History Social History Type Response Smoking Status Never smoker; Tobacc o user in household: No entered on: 05/19/14 Sex Patient Care team information Care Team Personnel Name: Not on Staff, PCP Position: S Physician (General Medicine) Member Role: PCP Care Team Related Persons Name: FOZIA SINCLAIR Address: [address] [place] [address] Name: LIONEL SAUNDERS Address: [address] [place] [address] Name: DEANNE SAUNDERS Address: [address] [place] [address]
--- OUTSIDE RECORDS SUMMARY | 2024-07-29 05:54 | XMS_ITS | Continuity of Care Document ---
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 Name Role Phone Romana STATON, Geo Primary Care Physician Encounter [facility] Date(s): 01/11/21 - 02/16/[address] [id number] Attending Physician: Ha Delgado MD Allergies, Adverse Reactions, Alerts Substance Reaction Severity [...] Date: 08/10/20 Status: Ordered Problem List Condition Effective Dates Status Health Status Inform ant Cervical spinal stenosis(Confirmed) Active Chronic kidney disease stage 3(Confirmed) Active Social History Social History Type Response Smoking Status Never smoker; Tobacc o user in household: No entered on: 05/19/14 Sex
--- OUTSIDE RECORDS SUMMARY | 2024-07-29 05:54 | XMS_ITS | Continuity of Care Document ---
Author Organization [facility] Address [address] [place] [address]- Care Team Providers Care Boating Safety Officer Name Role Phone Not on Staff, PCP Primary Care Physician Unavail able Encounter 04/29/24 - 04/30/[address] [address] Attending Physician: Not on Staff, Attending MD Referring Physician: Not on Staff, Referring MD Allergies, Adverse Reactions, Alerts Substance Reaction [...] List Condition Confirmation Course Effective Dates Status [facility] atus Informant Cervical spinal stenosis Confirmed Active Chronic kidney disease stage 3 Confirmed Active Results Radiology Reports * Exam Date Time Procedure Performing Provider Status 04/29/24 9:53 AM MRI Abdomen W+W/O Contrast Auth (Verified) Notes: (MRI Abdomen W+W/O Contrast) Reason For Exam: cyst of kidney;cyst of kidney RESULT: MRI Abdomen W+W/O Contrast [facility] VISIT NUMBER :[id number] Patient Name: Aliyah Saunders Date of : 1955 Date of Exam: 04-29-2024 Referring Physician: Fareed Jordan [facility], [address] [facility] [address], [address] [place] [address] Exam: MR Abdomen (C-/C+) CPT 63750 Room Description: [facility] 3.0T MR Abdomen (C-/C+) CPT 13068 CLINICAL INDICATION: cyst of kidney cyst of kidney - Standard Department Protocol TECHNIQUE: Multiplanar, multisequence pre and post contrast MRI evaluation of the abdomen was performed. 20 cc of Dotarem gadolinium administered intravenously. COMPARISON: Renal ultrasound 03/24/2024. FINDINGS: LOWER THORAX: No pleural or pericardial effusion. LIVER: Normal contour and size. Normal parenchymal enhancement. No suspicious lesion. Moderate hepatic steatosis as evidenced by loss of signal on opposed phase T1-weighted images. Estimated fat fraction of approximately 28%. GALLBLADDER: Cholelithiasis. No evidence acute cholecystitis. BILE DUCTS: No biliary ductal dilatation. SPLEEN: Normal. PANCREAS: Normal. No pancreatic ductal dilatation. ADRENAL GLANDS: No nodules. KIDNEYS: No hydronephrosis. Kidneys enhance symmetrically. Lesion of concern in the upper pole of the left kidney measures 2.7 x 2.7 x 3.0 cm. This demonstrates T2 hyperintensity, T1 hypointensity and does not enhance. There is a partial incomplete septation along the anterior margin. No mural nodularity. Bosniak II. Additional large cystic lesion in the upper pole/interpolar region of the left kidney measures 7.2 x 7.2 x 8.2 cm. This lesion is T2 hyperintense, T1 hypointense with 2 peripheral incomplete nonenhancing smooth septations. No suspicious mural nodularity. Bosniak II. A few additional bilateral smaller T2 hyperintense, T1 hypointense nonenhancing cysts are noted, the majority subcentimeter. STOMACH/UPPER GI TRACT: Stomach and visualized abdominal bowel normal in caliber. PERITONEUM AND RETROPERITONEUM: No loculated fluid collection or peritoneal mass. LYMPH NODES: No lymphadenopathy. VESSELS: Abdominal aorta is nonaneurysmal with mild atherosclerotic irregularity. Hepatic, portal and splenic veins patent. Visualized inferior vena cava unremarkable. ABDOMINAL WALL: Unremarkable. BONES: Unremarkable. IMPRESSION: 1. The lesion of concern in the upper pole of the left kidney is compatible with a 3.0 cm Bosniak II cyst requiring no dedicated follow-up (Radiology 2019; 292:[id number]?488). Additional bilateral simple cysts the largest measuring up to 8.2 cm. 2. Moderate hepatic steatosis. 3. Cholelithiasis Electronically Signed By: Jacob Mahan MD Dictated By: Not on Staff , CARLOS STATON Dictated Date/Time: 04/29/24 3:05 pm Reviewed By: Not on Staff , CARLOS STATON Signed By: Not on Staff , CARLOS STATON Signed Date/Time: 04/29/24 3:05 pm Transcribed By: TS Transcribed Date/Time: 04/29/24 3:05 pm Social History Social History Type Response Smoking Status Never smoker; Tobacc o user in household: No entered on: 05/19/14 Sex Patient Care team information Care Team Personnel Name: Not on Staff, PCP Position: S Physician (General Medicine) Member Role: PCP Care Team Related Persons Name: FOZIA SINCLAIR Address: home [address] [place] [address] Name: LIONEL SAUNDERS Address: home [address] [place] [address] Name: DEANNE SAUNDERS Address: home [address] [place] [address]
--- OUTSIDE RECORDS SUMMARY | 2024-07-29 05:54 | XMS_ITS | Continuity of Care Document ---
Author Organization [facility] Address [address], [address] Floor, [address] [place] [id number]- Care Team Providers Care Refuse Laborer Name Role Phone Not on Staff, PCP Primary Care Physician Unavail able [place] [facility] [place](s): 10/31/23 - 11/30/23 [facility] [address], [address], [address] [place] [id number] Allergies, Adverse Reactions, Alerts Substance Reaction Severity [...] Chronic kidney disease stage 3 Confirmed Active Social History Social History Type Response Smoking Status Never smoker; Tobacc o user in household: No entered on: 05/19/14 Sex Patient Care team information Care Team Personnel Name: Not on Staff, PCP Position: S Physician (General Medicine) Member Role: PCP Care Team Related Persons Name: FOZIA SINCLAIR Address: [address] [place] [address] Name: LIONEL SAUNDERS Address: home [address] [place] [address] Name: DEANNE SAUNDERS Address: home [address] [place] [address]
--- OUTSIDE RECORDS SUMMARY | 2024-07-29 05:54 | XMS_ITS | Continuity of Care Document ---
Author Organization [facility] Address [address] [place] [address]- Care Team Providers Care Can Machine Operator Name Role Phone Romana STATON, Geo Primary Care Physician Encounter [facility] [place] Date(s): 09/02/22 - 09/02/[address] [address]- Encounter Diagnosis Chest pain(Final) - 09/02/22 Discharge Disposition: A-D/C Home Attending Physician: Nikky Fierro MD Admitting Physician: Nikky Fierro MD Referring Physician: Not on Staff, Referring [...] Exam Date Time Procedure Performing Provider Status 09/02/22 5:23 AM Chest 2 Views Frontal and Lat Lucy Corrales; Jose (Verified) Notes: (Chest 2 Views Frontal and Lat) Reason For Exam: Chest Pain;Other: RESULT: Chest 2 Views Frontal and Lat Chest 2 Views Frontal and Lat Hx of Present Illness: pt states he is having chest pain and back pain starting around 2 hours ago.states it is a stabbing pain. states it is painful to take deep breaths. states it worsens when lying down.; Reason: Other:; Chest Pain; Clinical Question(s): Other: COMPARISON: None. FINDINGS: LINES AND TUBES: None. LUNGS AND PLEURA: Clear lungs. Normal pulmonary vascularity. No pleural effusion. No pneumothorax. HEART, MEDIASTINUM AND SUNNY: Heart is normal in size. Normal mediastinal and hilar contour. BONES AND SOFT TISSUES: No acute abnormality. Degenerative changes in the spine and shoulders. IMPRESSION: No acute abnormality. WSN: [id number] Ordering Physician: Nely Houston Dictated By: Tim Dowling MD Dictated Date/Time: 09/02/22 8:35 am Reviewed By: Tim Dowling MD Signed By: Tim Dowling MD Signed Date/Time: 09/02/22 8:35 am Transcribed By: PRIYA Transcribed Date/Time: 09/02/22 8:33 am Vital Signs Most recent to oldest [Reference Range]: 1 2 3 Oxygen Saturation [94-100 %] 98 % (09/02/22 9:51 AM) 99 % (09/02/22 8:27 AM) 99 % (09/02/22 7:48 AM) Pulse Rate [55-90 bpm] 73 bpm (09/02/22 9:51 AM) 72 bpm (09/02/22 8:27 AM) 76 bpm (09/02/22 7:48 AM) Blood Pressure [90-138/55-84 mm Hg] 130/76mm Hg (09/02/22 9:51 AM) 142/80mm Hg *H* (09/02/22 8:27 AM) 142/92mm Hg *H* (09/02/22 7:48 AM) Respiratory Rate [16-30 br/min] 20 br/min (09/02/22 9:51 AM) 18 br/min (09/02/22 8:27 AM) 18 br/min (09/02/22 2:26 AM) Temperature [96.8-100.4 DegF] 97.9 DegF (09/02/22 8:27 AM) 97.5 DegF (09/02/22 7:48 AM) 98.4 DegF (09/02/22 4:14 AM) Mode of Delivery (Oxygen) Room air (09/02/22 9:51 AM) Room air (09/02/22 8:27 AM) Room air (09/02/22 7:48 AM) Blood pressure sites Arm, right (09/02/22 9:51 AM) Arm, right (09/02/22 8:27 AM) Arm, left (09/02/22 7:48 AM) Temperature Route Oral (09/02/22 8:27 AM) Oral (09/02/22 7:48 AM) Oral (09/02/22 4:14 AM) Social History Social History Type Response Smoking Status Never smoker; Tobacc o user in household: No entered on: 05/19/14 Sex EKG study * Event Display: ECG 12-Lead Authored Date: Please click on pdf link to open report * Event Display: ECG 12-Lead Authored Date: Ventricular Rate: 67 BPM Atrial Rate: 67 BPM P-R Interval: 178 ms QRS Duration: 92 ms Q-T Interval: 420 ms QTC Calculation(Bazett): 443 ms P Geary: 52 degrees R Geary: 3 degrees T Geary: 73 degrees Sinus rhythm with Premature atrial complexes Septal infarct (cited on or before 02-SEP-2022) Abnormal ECG When compared with ECG of 02-SEP-2022 02:04, Premature atrial complexes are now Present Confirmed by BREA MAGALLON MD ([id number]) on 09/02/2022 3:30:53 PM [place]: BREA MAGALLON MD * Event Display: ECG 12-Lead Authored Date: Please click on pdf link to open report * Event Display: ECG 12-Lead Authored Date: Ventricular Rate: 76 BPM Atrial Rate: 76 BPM P-R Interval: 176 ms QRS Duration: 88 ms Q-T Interval: 392 ms QTC Calculation(Bazett): 441 ms P Geary: 46 degrees R Geary: 7 degrees T Geary: 71 degrees Sinus rhythm with marked sinus arrhythmia Septal infarct , age undetermined Abnormal ECG When compared with ECG of 16-SEP-1995 15:26, Septal infarct is now Present Confirmed by BREA MAGALLON MD ([id number]) on 09/02/2022 7:28:20 AM [place]: BREA MAGALLON MD Note * BHSPowerscribe , CIS S: TRANSCRIBE Tim Dowling MD: VERIFY Event Display: Result: Authored Date: [id number] Chest 2 Views Frontal and Lat Hx of Present Illness: pt states he is having chest pain and back pain starting around 2 hours ago.states it is a stabbing pain. states it is painful to take deep breaths. states it worsens when lying down.; Reason: Other:; Chest Pain; Clinical Question(s): Other: COMPARISON: None. FINDINGS: LINES AND TUBES: None. LUNGS AND PLEURA: Clear lungs. Normal pulmonary vascularity. No pleural effusion. No pneumothorax. HEART, MEDIASTINUM AND SUNNY: Heart is normal in size. Normal mediastinal and hilar contour. BONES AND SOFT TISSUES: No acute abnormality. Degenerative changes in the spine and shoulders. IMPRESSION: No acute abnormality. WSN: [id number] Ordering Physician: Nely Houston Dictated By: Tim Dowling MD Dictated Date/Time: 09/02/22 8:35 am Reviewed By: Tim Dowling MD Signed By: Tim Dowling MD Signed Date/Time: 09/02/22 8:35 am Transcribed By: PRIYA Transcribed Date/Time: 09/02/22 8:33 am Patient Care team information Care Team Personnel Name: Geo Avendano MD Position: [facility] Primary Care Physician Member Role: PCP Address: Address: [address] [place] [address]- Name: Madi Phillip Position: [facility] Associate Professional Member Role: ED Physician Aviation Safety Equipment Technician Address: Address: [address] [place] [address] [place] [address]- Name: Vy Dennis Position: [facility] ED TA [facility] Member Role: Hr Associate Name: Nikky Fierro MD Position: [facility] ED Medicine MD Member Role: Admitting Physician Address: Address: [address] [place] [address] Name: Aileen Canchola RN Position: [facility] ED RN W/OE and Tasks Member Role: Patient Care Provider Care Team Related Persons Name: FOZIA SINCLAIR Address: [address] [place] [address] Name: LIONEL SAUNDERS Address: home [address] [place] [address] Name: DEANNE SAUNDERS Address: home [address] [place] [address]
--- OUTSIDE RECORDS SUMMARY | 2024-07-29 05:54 | XMS_ITS | Continuity of Care Document ---
Author Organization [facility] Address [address] [place] [address] [address], [address] [place] [address]- Care Team Providers Care Stamping Mill Tender Name Role Phone Geo Avendano MD Primary Care Physician [place] [facility] [place]10[place]20 - 08/17/20 [facility] [address] [place] [address], [address] [place] [address]- [facility] Attending Physician: Melody Kate DO Referring Physician: Geo Avendano MD Allergies, Adverse Reactions, Alerts Substance Reaction [...] Active Chronic kidney disease stage 3(Confirmed) Active Vital Signs Most recent to oldest [Reference Range]: 1 Height 182.80 cm (08/10/20 9:17 AM) Weight 104.3 kg (08/10/20 9:17 AM) Body Mass Index [18.5-24.99] 31.21 *>HHI* (08/10/20 9:17 AM) Social History Social History Type Response Smoking Status Never smoker; Tobacc o user in household: No entered on: 05/19/14 Sex
[2024-07-29] MEDS: methocarbamoL 750 MG TABLET PO (06:34)
[2024-07-29] MEDS: Gabapentin 300 MG CAPSULE PO ×2 (06:34→22:53)
[2024-07-29] MEDS: Lactated Ringers 1,000 ML 100 ML IVCONT (06:43)
--- NOTE | 2024-07-29 07:07 | P.HPSUR_ITS ---
Pre-Procedural Eval Section A - 24 Hr Update-Section A only Date of Service: 07/29/24 Section B - Complete if H&P > 30 days Chief Complaint: S/P Cervical Spine Fusion Allergies: Allergies Allergy/AdvReac Type Severity Reaction Status Date / Time adhesive tape Allergy Itching Verified 07/29/24 06:20 atorvastatin Allergy Muscle Verified 07/29/24 06:20 cramps mite-Dermatophagoides Allergy Unknown Verified 07/29/24 06:20 farinae, thomas [dust mite - [place]] pravastatin Allergy Unknown Verified 07/29/24 06:20 Review of Systems Sugical H&P ROS: Negative: Constitution, Cardiovascular, Respiratory, Neurological, Psychiatric, Hem-Onc, Allergic/Immunologic, Gastrointestinal, Genitourinary, Musculoskeletal, Integumentary, Endocrine and Eyes/Ears/No se/Throat Review of Systems Comment: Patient is awake, alert, and oriented. In NAD. Proposed surgical site is clean and dry without evidence of recent surgery or trauma. Exam Surgical H&P Exam: Not Evaluated: HEENT, Not Evaluated: Heart, Not Evaluated: Lungs, Not Evaluated: Extremities, Not Evaluated: Abdomen, Not Evaluated: Skin and Not Evaluated: Neurological Plan Diagnosis/Plan: Unchanged I have reviewed the history and physical and performed a pertinent physical examination on my patient. No changes have occurred unless specified. 1) C5-7 posterior cervical decompression (prone) 2) C5-7 ACDF; possible C7-T1 (supine) 3) C5-7 Lateral mass screws (prone) Time Spent With Patient Time: Total time managing care of this patient today _15___ minutes.
[2024-07-29] MEDS: Scopolamine 1.5 MG PATCH.TD.3 TRANSDERMA (07:40)
--- NOTE | 2024-07-29 15:15 | W.PM.OPN ---
Operative Note Operative Note Date of Service: 07/29/24 Narrative: Preoperative Diagnosis: [place] deformity Operation: 1) C5-C6 C6-C7 laminotomy followed by C5-6 C6-7 bilateral facetectomies to release the posterior elements 2) anterior cervical diskectomy C5-C6, C6-7 and C7-T1; implantation cages C5-6, C6-7 C7-T1; anterior instrumentation C5-T1 3) instrumented fusion C5-C7 with lateral mass screws Consent Informed Consent was obtained for this operation. I have explained the nature, purpose and benefits of the operation. I have discussed the risks and benefit of the operation including possible complications or adverse events with patient/family. Alternative(s) were discussed with the patient with their relative benefits and risks as well as the consequences of not accepting the operation were included in obtaining consent. 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 He had a previous C4-5 and C3-C4 anterior diskectomy and fusion done. Imaging reviews that he is auto fused at C5-C6 and C6-7 and T1-T2. The C7-T1 level is not fused. The posterior facet joints of C5-6 and C6-7 are fused as well bilaterally. Therefore I proposed to the patient to do a posterior release by doing C5-6 C6-7 bilateral facetectomies followed by a 3 level anterior diskectomy and fusion C5-6, C6-7, C7-T1 to release the anterior column and then finalize the posterior release by placing lateral mass screw C5-C7. The procedure and complications were explained. The patient was consented. The patient was brought to the operating room and endotracheally intubated. The patient was turned in prone position on the gel rolls with the head fixated in Toribio. Prep and drape was done followed by timeout. A midcervical incision was made. Dissection was carried down the midline to avoid blood loss. The paravertebral muscles were released to expose the C5, C6, C7 laminae and lateral masses of C5, C6 and C7 bilaterally. A bilateral C5-C6 and C6-7 laminotomy was done that was needed to localize the exiting nerve roots and to anatomically localize the foramina. Then a bilateral C5-6, C6-7 facetectomy was done to fully decompress the exiting nerve roots and to release the posterior column. When this was achieved the posterior incision was closed. The patient was turned supine in preparation for the three-level anterior diskectomy and fusion. Prep and drape was done followed by timeout. A mid cervical incision was made followed by opening of the platysma. The prevertebral fascia was reached following the natural planes while the physician resident programs assistant provided manual retraction. The prevertebral fascia was opened to expose the anterior spinal column. The disc spaces were all calcified and therefore used a high-speed drill to create the previous existing disc spaces at C5-C6 and C6-7. At C7-T1 an anterior osteophyte was removed after which a partial diskectomy could be performed. Then a return to the C5-C6 level. Warwick pins were placed in the body of C5-C6. The C5-6 disc space was drilled down towards the longitudinal ligament. The posterior longitudinal ligament was opened and resected with a 1. And 2 Kerrison. Then the lateral part of the disc space was released to finalize the anterior release of this segment. An 8 mm height cage with a 7 degree lordosis filled with autograft was inserted into the disc space that resulted in a proximally 10-20 degree straightening of the cervical spine. Then attention was turned to the C6-7 level. This level was completely auto fused. I drilled all the way down with a high-speed drill until I had an opening towards the posterior longitudinal ligament. Then I removed the remainder of the bone with a 1. and 2 Kerrison and again released the bone mass laterally to release this segment. Then a 6 mm cage with 7 degree lordosis filled with autograft was inserted into the disc space under fluoroscopic guidance. Finally the C7-T1 level was completed towards the posterior longitudinal ligament. The endplates were prepared after which a 6 mm cage with 7 degree lordosis filled with autograft was inserted into this disc space. Anterior instrumentation was done from C5-C7 with separate attached plate to the cages and a 14 mm screw in the body of C6, 2x14 mm screws in the body of C6 and C7 and 2 x 14 mm screws in the body of C7 and T1. Final x-rays in AP and lateral projection showed a satisfactory position of the implants The physician resident programs assistant took over. The Warwick pin was removed. Hemostasis was done. He closed the incision in 2 layers with a 3-0 Vicryl. Steri-Strips used to approximate incision. An OpSite with Tegaderm was used to cover the incision. Then the patient was turned prone again. Prepping and draping was done. The posterior incision was opened. A electrical maintenance worker hole was drilled in the lateral mass of C5, C6 and C7 bilaterally. I was unable to get a good trajectory in the left C7 lateral mass. Then 14 mm lateral mass screws were inserted in the right C5-C6 and C7 lateral masses and into the C5 and C6 lateral masses on the left side. The lateral mass screws were connected with a 60 mm stephane on the right side and a 40 mm stephane on the left side and locked down with locking caps. The posterior fusion was completed by laying down allograft in the posterolateral gutter to finalize the fusion. Hemostasis was done. The incision was closed in 3 layers by the physician resident programs assistant and mallory for the skin. An opp site with tegaderm was used to cover the incisions. All sponge needle counts were correct. The patient was extubated and transported in stable condition to recovery room after Toribio was removed. Anesthesia: General Estimated Blood Loss (ml): 300 Duration of Surgery: 6 hours Postoperative Plan: Discharge home Complications: None Anesthesia: General Estimated Blood Loss (ml): [] mL Duration of Surgery: Under 60 Minutes Postoperative Plan: Discharge to home
--- NOTE | 2024-07-29 18:15 | PHA.MEDREC ---
Pharmacy Consult ? Medication Reconciliation Pharmacy reviewed med rec done by nursing. Spoke to patient and he confirmed he is not taking Aluminum-mag hydroxide-simethicone 200m mg-200 mg-20 mg/5ml anymore. He is still taking Repatha once every 2 weeks and the patient got it last on 07/14. He also confirmed he is taking Baby aspirin 81mg tabs once tab daily, and he takes Magnesium Oxide 400mg tabs instead of the Magnesium Citrate 100mg tab. He states he took his Pantoprazole 20mg tab this morning and his heart medication this morning and everything else yesterday.
--- NOTE | 2024-07-29 18:18 | PC.NURSE ---
Admission assessment completed by battery charger conveyor line Rojas,patient sitting up in bed,eating dinner
--- NOTE | 2024-07-29 18:23 | PHA.MEDREC ---
Addendum entered by Ayde Dorantes bob 07/29/24 18:40: REVIEWED Original Note: Pharmacy Consult ? Medication Reconciliation Pharmacy reviewed med rec done by nursing. Spoke to patient and he confirmed he is not taking Aluminum-mag hydroxide-simethicone 200m mg-200 mg-20 mg/5ml anymore. He is still taking Repatha once every 2 weeks and the patient got it last on 07/14. He also confirmed he is taking aspirin 81mg tabs once tab daily, and he takes Magnesium Oxide 400mg tabs instead of the Magnesium Citrate 100mg tab. He states he takes his Pantoprazole 20mg tab 1-2 times a day depending on how he is feeling. He took the Pantoprazole 20mg tab this morning and his heart medication this morning and everything else yesterday.
[2024-07-29] MEDS: 0.9 % Sodium Chloride 1,000 ML 75 ML IVCONT (18:49)
[2024-07-29] MEDS: ceFAZolin Sodium/Dextrose,Iso 2 GM/50 ML PIGGYBACK IV ×2 (18:52→23:03)
[2024-07-29] MEDS: Acetaminophen 325 MG TABLET 975 MG PO (22:53)
[2024-07-29] MEDS: Docusate Sodium 100 MG CAPSULE PO (22:53)
[2024-07-29] MEDS: oxyCODONE HCl Immed Release 5 MG TABLET 10 MG PO (22:54)
[2024-07-29] MEDS: Artificial Tears 15 ML DROPS 1 DROP EYE-BOTH (23:06)
[2024-07-30] MEDS: HYDROmorphone HCl 1 MG/ML SYRINGE IVPUSH (02:43)
[2024-07-30 05:33] VITALS: BP 128/60; PULSE 82; RESP 16; TEMP 37.6; O2SAT 98
[2024-07-30] MEDS: Omeprazole 20 MG CAPSULE.DR PO (06:06)
[2024-07-30] MEDS: Acetaminophen 325 MG TABLET 975 MG PO ×3 (06:06→16:29)
[2024-07-30] MEDS: ceFAZolin Sodium/Dextrose,Iso 2 GM/50 ML PIGGYBACK IV (06:11)
--- NOTE | 2024-07-30 07:01 | PM.DS ---
DS: Providers Provider Date of Service: 07/30/24 Date of admission: 07/29/24 06:20 Primary care physician: Unknown Physician DS: Summary Time Attestation Discharge Coordination Time (in mins): 30 Quality: Safe Use of Opioids Does Pt have an Active Cancer Diagnosis on the Problem List?: No Quality: Stroke Does the patient have a stroke diagnosis?: No Physical Exam Vital Signs: Vital Signs: Last Vital Signs Temp 99.6 F 07/30/24 05:33 Pulse 82 07/30/24 05:33 Resp 16 07/30/24 05:33 BP 128/60 07/30/24 05:33 Pulse Ox 98 07/30/24 05:33 O2 Del Method Room Air 07/30/24 05:33 O2 Flow Rate 2 07/29/24 19:26 BMI result Body Mass Index 31.2 Discharge Plan Discharge Anticipated Discharge Date/Time: 07/30/24 07:01 Patient Disposition: Xfer Inpatient Rehab Fac Discharge Diagnosis: s/p C5-7 cervical spine fusion Referrals: Physician,Unknown J [Physician] - 1 Week Discharge Medications: Continued multivitamin Tablet 1 tab PO DAILY magnesium oxide 400 mg magnesium Tablet 400 mg PO DAILY ezetimibe 10 mg tablet 10 mg PO DAILY losartan 25 mg tablet 25 mg PO DAILY albuterol sulfate 90 mcg/actuation HFA aerosol inhaler 2 puff inhalation Q4-6H PRN (Reason: Shortness Of Breath Or Wheezing) cholecalciferol (vitamin D3) [Vitamin D3] 25 mcg (1,000 unit) tablet 25 mcg PO DAILY dicyclomine 10 mg capsule 10 mg PO DAILY PRN (Reason: Abdominal Discomfort) tizanidine 4 mg tablet 4 mg PO BEDTIME PRN (Reason: muscle spasms) carboxymethylcellulose sodium 0.5 % dropperette 1 drp ophthalmic (eye) TID fluticasone propion-salmeterol [Wixela Inhub] 500-50 mcg/dose blister with device 1 inh inhalation DAILY montelukast 10 mg tablet 10 mg PO BEDTIME PRN (Reason: Allergy Symptoms) ketoconazole 2 % shampoo 1 appl topical 2XW PRN (Reason: Skin Irritation) pantoprazole 20 mg tablet,delayed release (DR/EC) 20 mg PO QD-BID cyanocobalamin (vitamin B-12) 1,000 mcg capsule 1,000 mcg PO DAILY zinc gluconate 50 mg tablet 25 mg PO DAILY Held aspirin 81 mg Tablet,Delayed Release (Dr/Ec) 81 mg PO DAILY Hold Instructions: Resume on 08/02/24. Repatha SureClick 140 mg/mL pen injector 140 mg subcut .every 14 days Hold Instructions: Resume on 08/13/24. Discuss with prescriber on restart date post operatively hydrocortisone 2.5 % cream 1 appl topical .COMPLEX PRN (Reason: Itching) Hold Instructions: Resume on 08/13/24. Do not apply to incision site Rx Instructions: 1 appl topically 1-2 times de PRN; lidocaine 5 % adhesive patch,medicated 1 patch topical DAILY PRN (Reason: Pain) Hold Instructions: Resume on 08/13/24. Do not apply to incision site Rx Instructions: leave on most painful area for up to 12 hrs Discharge Orders: Discharge Order (Routine); Ordered 07/30/24 Ordered By: Cole Shen Diet: Advance to usual diet Activity on Discharge: As tolerated Stand Alone Forms: Patient Portal Discharge page Print Language: Hungarian Care Plan Goals: Returned to normal activity as tolerated Health Concerns: None Plan of Treatment: Follow-up in clinic in 10-14 days for staple removal Assessment: POD: 1 Procedure: C5-7 ACDF with posterior decompression and lateral mass screws Pete is a pleasant 68 year old male who is POD:1 s/p C5-7 cervical decompression and fusion with posterior instrumentation for cervical deformity correction. He was seen sitting upright in bed this afternoon eating lunch on 3-S. His raza is out. He is voiding independently per his report. He has been OOB and worked with PT. He has been tolerating diet despite some disclosed pain with swallowing. His X-ray imaging was reviewed by Dr. Tapia who noted stable placement of his instrumentation and good correction of cervical kyphosis. Afebrile, vital signs stable. Full strength 5/5 LE's. Incision sites have some staining without signs of hematoma. No active sanguineous drainage. Area is dry.. Plan: Pete is making good progress in regards to pain control and mobility. He continues to tolerate a regular diet and no longer has a raza catheter in. We believe he is a good candidate for inpatient rehab, as recommended by PT. I filled out a paper Rx for Oxycodone for the patient to take to his Rehab facility. His medication regimen should be as follows: Oxycodone 5mg 1-2 tablets Q6h PRN severe pain Gabapentin 300mg 1 capsule TID PRN nerve pain Methocarbamol 750mg TID PRN muscle spasms Acetaminophen 975mg TID scheduled Cole Tapia MD,PhD [facility]
--- NOTE | 2024-07-30 07:02 | PC.NURSE ---
Pt's Aguirre catheter removed at 06:15, per MD ordered, due to void at 12:15. Urinal at bedside. Will continue to monitor.
--- NOTE | 2024-07-30 07:35 | HO.NEUROPN_ITS ---
Neurosurgery Operative Note Date of Service: 07/30/24 Narrative: POD: 1 Procedure: C5-7 ACDF with posterior decompression and lateral mass screws Pete is a pleasant 68 year old male who is POD:1 s/p C5-7 cervical decompression and fusion with posterior instrumentation for cervical deformity correction. He was seen sitting upright in bed this morning on 3-S. His raza is out this AM. He has not as of yet voided independently. He has been OOB with a walker but has not as of yet worked with PT. He has been tolerating diet but nursing staff did report some swallowing difficulties overnight. Afebrile, vital signs stable. Full strength 5/5 LE's. Incision sites have some staining without signs of hematoma. No active sanguineous drainage. Area is dry.. Plan: Will remain admitted to [address] [place] [address] for recovery, pain management, and further evaluation. We will need to obtain a set of bedside X-rays this morning to evaluate for instrumentation placement. If he is able to make progress with PT we will try for DC later today or tomorrow AM if patient reports improved pain control and is able to void independently. He was seen at bedside with Dr. Tapia this morning who agrees to this plan. Cole Tapia MD,PhD [facility]
[2024-07-30 07:52] VITALS: BP 137/65; PULSE 87; RESP 18; TEMP 37.1; O2SAT 97
[2024-07-30] MEDS: Fluticasone/Vilanterol 200/25 BLST.W.DEV 1 PUFF INHALE (08:07)
[2024-07-30 08:08] VITALS: PULSE 84; RESP 18; O2SAT 99
[2024-07-30] MEDS: Cyanocobalamin (Vitamin B-12) 1,000 MCG TABLET 1000 MCG PO (08:52)
[2024-07-30] MEDS: Ezetimibe 10 MG TABLET PO (08:52)
[2024-07-30] MEDS: Gabapentin 300 MG CAPSULE PO ×2 (08:52→16:29)
[2024-07-30] MEDS: Multivitamin TABLET 1 TAB PO (08:52)
[2024-07-30] MEDS: Docusate Sodium 100 MG CAPSULE PO (08:52)
[2024-07-30] MEDS: Losartan Potassium 25 MG TABLET PO (08:52)
[2024-07-30] MEDS: Cholecalciferol (Vitamin D3) 25 MCG TABLET PO (08:52)
[2024-07-30] MEDS: Zinc Sulfate 220 MG CAPSULE PO (08:52)
--- NOTE | 2024-07-30 10:50 | MHC.CM.PN ---
Addendum entered by Cierra Easton 07/30/24 13:51: [facility] OFF[facility] AND NOW HAS AUTH PT AWARE AND IN AGREEMENT BLS TRANSPORT BOOKED FOR 1630 HOURS WITH [facility] ATTEMPTED TO ARRANGE TRANSPORT VIA [facility] DUE TO PTS INSURANCE, HOWEVER THEY HAD NOTHING AVAILABLE PRIOR TO 1930 HOURS (RUN # [id number]) Original Note: PT REPORTS HE LIVES ALONE PT INDEPENDENT WITH CARE PT HAS CPAP, NO SERVICES WILL COMPLETE HCP TODAY PCP DR. CARTY OBS DELIVERED DC PLAN REHAB VS HOME WITH [facility] PT IS HOPING FOR STR PENDING BED AND INSURANCE AUTHORIZATION PT UNDERSTANDS HE MAY GO HOME WITH [facility] IF HNE DECLINES
--- NOTE | 2024-07-30 11:01 | HO.POSTANES ---
Post Anesthesia Evaluation Post Anesthesia Evaluation Date of Service: 07/29/24 Vital Signs: Vital Signs Temp Pulse Resp BP Pulse Ox O2 Del Method 07/30/24 08:08 84 18 07/30/24 07:52 98.8 F 87 18 137/65 97 Room Air 07/30/24 05:33 99.6 F 82 16 128/60 98 Room Air Anesthesia: General Endotracheal-GETA Mental Status: Awake Pain Control: Satisfactory Nausea/Vomiting: None Hydration: Adequate Anesthesia-Related Issues: No Anes. Related Issues
[2024-07-30] MEDS: Artificial Tears 15 ML DROPS 1 DROP EYE-BOTH ×2 (11:47→16:36)
[2024-07-30 14:00] VITALS: BP 129/59; PULSE 89; RESP 18; TEMP 36.9; O2SAT 97
== END 2024-07-30 16:46 ==
LOC: HO.SSSA 06:23 → HO.S3 16:23
PROVIDERS: Admitting Provider Physician Assistant; PCP Internal Medicine; Visit Provider Neurological Surgery
PROC: (CPT 22600; principal; 2024-07-29 07:30)
PROC: (CPT 22600; 2024-07-29 07:30)
DX: M95.3 Acquired deformity of neck (principal); M43.8X2 Other specified deforming dorsopathies, cervical region; M40.202 Unspecified kyphosis, cervical region; I10 Essential (primary) hypertension; E78.5 Hyperlipidemia, unspecified
CPT/HCPCS: 22600; 22551; 22552 ×2; 63045; 63048; 22853 ×3; 20936; 20930; 22840; 22842; 22614; 72040; 94640; 96361; 96365; 96366; 96375; 97162; C1713; C1758; C1889; J0131; J0690; J1100; J1171; J2003; J2250; J2371; J2598; J2704; J3010; L8699

== ENCOUNTER → 2024-07-29 06:20 | Outpatient (BNV) | payer MEDICARE, SELFPAY | PROVIDERS: Admitting Provider Physician Assistant; Visit Provider Neurological Surgery | DX: Z48.89 Encounter for other specified surgical aftercare (principal) | CPT/HCPCS: 20930; 20936; 22551; 22552; 22600; 22612; 22614; 22840; 22842; 22853; 63045; 63048; 99024; 99499 ==

== ENCOUNTER 2024-08-07 13:33 | Outpatient (AMB) | payer MEDICARE, SELFPAY ==
--- NOTE | 2024-08-07 13:36 | A.SPINEOV_ITS ---
Intake Visit Reasons: Stich removal Intake Note: Mr. Ceballos is here today for his stich removal Toppiece Chopper Required: No Allergies adhesive tape Allergy (Verified 07/29/24 06:20) Itching atorvastatin Allergy (Verified 07/29/24 06:20) Muscle cramps mite-Dermatophagoides farinae, thomas [dust mite - [place]] Allergy (Verified 07/29/24 06:20) Unknown pravastatin Allergy (Verified 07/29/24 06:20) Unknown Assessment & Plan Assessment & Plan (1) [place] neck deformity of cervical spine: Code(s): M43.8X2 - Other specified deforming dorsopathies, cervical region Category: Medical Plan On 08/07/2024 I saw for suture removal Pete Ceballos. He underwent an anterior diskectomy and fusion C5-T1 and posterior instrumented fusion C4-C7 to correct the cervical deformity. The surgery was 10 days ago. His neck position has significantly improved. The posterior incision looks healed. I removed the mallory. I will follow-up in 3 weeks with a cervical x-ray. Mitchell Tapia MD, PhD Spine Fellowship Trained Neurosurgeon Director, [facility] Coding Level of Care Code Global (80807) Diagnoses [place] neck deformity of cervical spine M43.8X2
== END 2024-08-07 14:12 | disposition home or self-care (01) ==
PROVIDERS: PCP Internal Medicine; Visit Provider Neurological Surgery
DX: M43.8X2 Other specified deforming dorsopathies, cervical region (principal)
CPT/HCPCS: 99024

== ENCOUNTER → 2024-08-07 13:33 | Outpatient (BNVA) | payer MEDICARE, SELFPAY | PROVIDERS: PCP Internal Medicine; Visit Provider Neurological Surgery | DX: M43.8X2 Other specified deforming dorsopathies, cervical region (principal) | CPT/HCPCS: 99212 ==

== ENCOUNTER 2024-08-28 11:26 | Outpatient (AMB) | payer MEDICARE, SELFPAY ==
--- NOTE | 2024-08-28 11:50 | HO.SPINEOV ---
Intake Visit Reasons: 3 weeks post op with xrays Intake Note: Mr. Ceballos is here today for his 3 weeks post op Defense Travel Administrator Required: No Allergies adhesive tape Allergy (Verified 08/28/24 11:52) Itching atorvastatin Allergy (Verified 08/28/24 11:52) Muscle cramps mite-Dermatophagoides farinae, thomas [dust mite - [place]] Allergy (Verified 08/28/24 11:52) Unknown pravastatin Allergy (Verified 08/28/24 11:52) Unknown Assessment & Plan Assessment & Plan (1) [place] neck deformity of cervical spine: Code(s): M43.8X2 - Other specified deforming dorsopathies, cervical region Category: Medical Plan: Dear colleague, On 08/28/2024 I saw for postoperative visit Pete JAROCHO. Underwent a reconstruction of the swan deformity with good cosmetic result. He continues to complain of diffuse pains in his shoulders and legs. 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 I would like to follow-up with him in 3 months with cervical x-rays and at that time we will also discuss his lower back issues. Thank you for allowing me take care of your patient. Mitchell Tapia MD, PhD Spine Fellowship Trained Neurosurgeon Director, [facility] [place] [facility] Coding Level of Care Code Global (69559) Diagnoses [place] neck deformity of cervical spine M43.8X2
== END 2024-08-28 12:36 | disposition home or self-care (01) ==
PROVIDERS: PCP Internal Medicine; Visit Provider Neurological Surgery
DX: M43.8X2 Other specified deforming dorsopathies, cervical region (principal)
CPT/HCPCS: 99024

== ENCOUNTER 2024-08-28 12:44 | Outpatient (REF) | payer MEDICARE, SELFPAY | END 2024-08-28 12:45 | disposition home or self-care (01) | LOC: HO.HOSX 12:44 | PROVIDERS: Visit Provider Neurological Surgery | DX: M43.8X2 Other specified deforming dorsopathies, cervical region (principal) | CPT/HCPCS: 99212 ==

== ENCOUNTER → 2024-11-27 10:58 | Outpatient (BNV) | payer MEDICARE, SELFPAY | PROVIDERS: Visit Provider Radiology Diagnostic Radiology | DX: M43.8X2 Other specified deforming dorsopathies, cervical region (principal) | CPT/HCPCS: 72040 ==

== ENCOUNTER 2024-11-27 13:47 | Outpatient (REF) | payer MEDICARE, SELFPAY ==
--- NOTE | ~2024-11-27 | XR_ITS ---
EXAMINATION: XR CERVICAL SPINE CLINICAL INFORMATION: M43.8X2 - Other specified deforming dorsopathies, cervical region COMPARISON: 07/20/2024. CT C-spine 04/01/2024. TECHNIQUE: 3 views of the cervical spine were obtained. FINDINGS: No scoliosis. Straightening of the normal lordosis. No fracture, malalignment, or suspicious focal bony lesion. No compression deformity. Anterior fusion C3-4, C4-5, C5-6, C6-7, and C7-T1 with disc prostheses and oblique endplate screws. Posterior hardware consisting of lateral mass screws and posterior connecting rods C5-6 on the left, and C5-C7 on the right. All hardware appears well seated without periprosthetic or periscrew lucencies. Hardware is intact. No evidence of infection radiographically. Relative preservation of the C2-3 disc space although there is diffuse anterior bridging disc osteophyte. Remainder of the discs have been replaced. Atlantoaxial joint is intact, alignment, and demonstrates mild to moderate degenerative arthritis. Craniocervical junction intact and aligned. Multilevel hypertrophic facet change with no facet malalignment. C2-3 facets appear partially fused. No prevertebral or paravertebral soft tissue abnormalities. Imaged lung apices clear. XR/XR cervical spine 2V IMPRESSION: 1. No acute findings of the cervical spine. No fracture or compression deformity. No malalignment. 2. Extensive fusion hardware both anterior and posterior as detailed. No complication or hardware failure. 3. Bridging osteophyte at C2-3 ventrally, with probable bony facet fusion, the only nonsurgically fused level. Electronically signed by: Chuck Cordova MD 11/27/2024 02:39 PM EST
--- OUTSIDE RECORDS SUMMARY | 2024-11-27 11:47 | XMS_ITS | Data Portability ---
Author Organization [facility] Massey AONE [facility] Address [address] [place] [address] Care Team Providers Care Boot Turner Name Role Phone MACHELLE KASHMIR Primary Care Provider Assessment Encounter Date Assessment Date Assessment LastModified by Organization Details LastModified Time 12/27/2022 12/27/2022 This is a 67-year-old male with ongoing bilateral shoulder pain due to the following; Right shoulder glenohumeral arthritis and impingement syndrome with rotator cuff tearing as well as rotator cuff pathology of the left shoulder with impingement syndrome. After further questioning he states he gets approximately 3 weeks of relief from cortisone injections. As we discussed this is not a satisfactory amount of time with cortisone injections and the inherent risks far outweigh the benefit. We did discuss formal physical therapy for which she would like to give this thought. We will however reach out to his neurosurgeon regarding injections and timeframe if the patient is adamant about going forward. We have discussed referring him to a shoulder replacement specialist which she will give some thought and call our office going forward. I did offer him a follow-up appointment however he declined at this time. Additional treatment plan discussed with the patient in detail included the following; - Provider focused nonsteroidal anti-inflammator y regimen (discussed were the pros, cons, benefits and risks as well as any black box warnings) - Analgesic pain medication for pain suppression (discussed were the pros, cons, benefits and risks as well as any black box warnings) - The use of topical pain relieving medication were discussed - The use of ice to decrease inflammation and pain - The use of assistive ambulatory devices for ambulation and fall prevention - Formal specific guided physical therapy program I reviewed my findings at length with the patient today. ??We discussed the nature and etiology of this problem along with current treatment options. We discussed the expected course and outcomes and what to expect. We also discussed risks and benefits. ??All of their questions were answered today, and there was exhibited understanding and comprehension of all that was discussed. 10 minutes were spent reviewing previous imaging and charting. ??10 minutes were spent obtaining patient history. ??5 minutes were spent on physical exam. ??5??minutes were spent explaining diagnosis and assessment. Today's documentation was made using voice recognition software. This note may contain grammatical errors secondary to the software. [email or web address] Not available 12/27/2022 09:28:14 Plan of Treatment Reminders Order Date Submit Date Provider Last Modified By Organization Details Last Modified Time Details Appointments None record ed. Lab None record ed. Referral None record ed. Procedures None record ed. Surgeries None record ed. Imaging None record ed. Medication Orders None record ed. Patient TargetsNo targets recorded. Patient InstructionsNo instructions recorded. Reason for Referral None Reported. Problems Name Problem SNOMED Code Status Onset Date Resolution Date Notes Provider Name and Address Organization Details Recorded Time Localized, primary osteoarthri tis of the shoulder region 961295326 Active 2022 SILVIA ARCE PA-C [address], [place], [address], [place] [facility] [place], P 3 09:28:46 Rupture of rotator cuff of right shoulder 2909334652751 9103 Active 2022 SILVIA ARCE PA-C [address], [place], [address], [place] [facility] [place], P 3 09:28:56 Problem Notes None recorded. Medical Equipment None Reported. Allergies No known drug allergies Medications Name Sig Start Date Stop Date Status Note LastModified by Organization Details LastModified Time albuterol sulfate 2.5 mg/3 mL (0.083 %) solution for nebulization INHALE 1 AMP BY NEBULIZATIO N ROUTE 4 TIMES EVERY DAY active Not Available Not Available No t Available cetirizine 10 mg tablet Take 1 tablet every day by oral route. active Not Available Not Available No t Available tizanidine 4 mg tablet TAKE 1 TABLET BY MOUTH DAILY NEEDED FOR MUSCLE SPASMS. active Not Available Not Available No t Available Ativan 1 mg tablet Take 1 tablet 3 times a day by oral route. active Not Available Not Available No t Available donepezil 10 mg tablet TAKE 1 TABLET BY MOUTH AT BEDTIME active Not Available Not Available No t Available valacyclovir 500 mg tablet Take 1 tablet every day by oral route. active Not Available Not Available No t Available fenofibrate micronized 200 mg capsule TAKE 1 CAPSULE BY MOUTH EVERY DAY IN THE MORNING BEFORE BREAKFAST active Not Available Not Available No t Available lorazepam 0.5 mg tablet TAKE ONE TABLET BY MOUTH ONE HOUR PRIOR TO MRI active Not Available Not Available No t Available Lasix 20 mg tablet Take 1 tablet every day by oral route. active Not Available Not Available No t Available ferrous sulfate 325 mg (65 mg iron) tablet TAKE 1 TABLET BY MOUTH EVERY DAY active Not Available Not Available No t Available fluticasone 500 mcg-salmeter ol 50 mcg/dose blistr powdr for inhalation Inhale 1 puff twice a day by inhalation route. active Not Available Not Available No t Available losartan 25 mg tablet Take 1 tablet every day by oral route. active Not Available Not Available No t Available docusate sodium 100 mg capsule TAKE 1 TABLET BY MOUTH TWICE A DAY active Not Available Not Available No t Available omeprazole 20 mg capsule,andrea yed release TAKE 1 CAPSULE BY MOUTH TWICE A DAY active Not Available Not Available No t Available montelukast 10 mg tablet Take 1 tablet every day by oral route. active Not Available Not Available No t Available bisacodyl 5 mg tablet,delay ed release TAKE 2 TABS AT 6PM DIRECTED. active Not Available Not Available No t Available gabapentin 100 mg capsule Take 1 capsule 3 times a day by oral route. active Not Available Not Available No t Available albuterol sulfate HFA 90 mcg/actuatio n aerosol inhaler TAKE 2 PUFFS BY MOUTH EVERY 4 TO 6 HOURS NEEDED active Not Available Not Available No t Available carbidopa 25 mg-levodopa 100 mg tablet TAKE 1 TABLET BY MOUTH THREE TIMES A DAY FOR 30 DAYS active Not Available Not Available Not Available dicyclomine 10 mg capsule TAKE 1 CAPSULE BY MOUTH 4 TIMES DAILY (BEFORE MEALS AND NIGHTLY). active Not Available Not Available No t Available oxycodone 5 mg tablet TAKE 1 TABLET BY MOUTH EVERY 4 HOURS NEEDED FOR MODERATE PAIN active Not Available Not Available No t Available Zetia 10 mg tablet Take 1 tablet every day by oral route. active Not Available Not Available No t Available Vitamin D3 25 mcg (1,000 unit) tablet TAKE 1 TABLET BY MOUTH EVERY DAY active Not Available Not Available No t Available Zanaflex 4 mg capsule Take 1 capsule every 6 hours by oral route. active Not Available Not Available Not Available omeprazole active Not Available Not Av ailable Not Available Gavilax 17 gram/dose oral powder PLEASE SEE ATTACHED FOR DETAILED DIRECTIONS active Not Available Not Available N ot Available Flonase Allergy Relief 50 mcg/actuatio n nasal spray,suspen linda [place] 1 spray every day by intranasal route. active Not Available Not Available No t Available Repatha SureClick 140 mg/mL subcutaneous pen injector Inject 1 mL every 2 weeks by subcutaneou s route. active Not Available Not Available No t Available Flowflex COVID-19 Antigen Home Test kit USE ACCORDING TO MANUFACTURE R'S DIRECTIONS active Not Available Not Available N ot Available albuterol 90 mcg-budesoni de 80 mcg/actuatio n HFA aerosol inhaler Inhale by inhalation route. active Not Available Not Available No t Available Vitals Date Recorded Body height Body mass index (BMI) Body weight Provider Name and Address Organization Details Last Updated DateTime 12/27/2022 182.88 cm 31.6 kg/m2 930729.[address] [facility], 12/27/2022 08:51:03 Social History None recorded. Functional Status None recorded. Mental Status None recorded. Family History Relationship Description Onset Age of this Age Resolved Age Notes LastModified by Organization Details LastModified Time Mother Family history of malignant neoplasm [email or web address] Not available 2022 08:51:41 Medical History Condition Response Reflux/GERD Y Hypertension Y Kidney Disease Y Past Encounters Encounter ID Performer Location Encounter Start Date Encounter Closed Date Diagnosis/Indication Diagnosis SNOMED-CT Code Diagnosis ICD10 Code Diagnosis Note [id number] MD CHINA Byrne [address] [place] [address] 12/27/2022 08:43:13 12/27/2022 09:01:29 Localized, primary osteoarthritis of the shoulder region 907976138 M19.019 Rupture of rotator cuff of right shoulder [id number] 7144337 M75.101 Health Concerns Section Related Observation LastModified by Organization Mariama rene LastModified Time None Recorded Concern Status LastModified by Organization Details LastModified Time None Recorded Advance Directives Directive None Recorded Payers Encounter Date Sequence Insurance Name Policy Number Policy Leigh Covered Member ID Leigh Member ID Guarantor Name 12/27/2022 1 [facility] [id number] 1 Pete Ceballos [id number] Peterosaline Ceballos Notes Date Note Type Note Provider Name and Address Organization Details Recorded Time 12/27/2022 text/html Assessment and Plan: Exam date 09/27/2022This is a 66-year-old male with chronic rotator cuff tear of the right shoulder with glenohumeral arthritis as well as impingement syndrome. He also has rotator cuff tendinopathy without the exclusion of partial rotator cuff tearing of the left shoulder who is symptomatic.??I had a lengthy discussion with the patient regarding management including surgical treatment options for which she is adamant that he is not interested in. He states his pain keeps him up at night and he is amenable to cortisone injections of both shoulders.??He understands the risks associated with cortisone injection in the presence of rotator cuff tearing and the long-term effects. He then gave verbal consent for injections of both shoulders. This was carried out. The patient tolerated the procedure well. Aftercare instructions were discussed in detail. We discussed rotator cuff protective measures as well as stretching exercises. I would like to reevaluate him in 3 months time for repeat clinical exam. Should his symptoms not improve or worsen he should contact our office and I will have him see Dr. Schaefer in follow-up. The patient agrees with the above-noted plan.??HPI:??Jamiaaida nt 67-year-old male last seen on the above-noted date for bilateral shoulder pain for which she had cortisone injections. He states this is worn off. He states this is becoming more less effective. He has chronic neck and back issues. He states he recently had back surgery by Dr. Tapia on 12/07/2022 for decompression. Patient is requesting for cortisone injections. However due to the timeframe of his recent back surgery we will need to withhold this for approximately 6 weeks and less I am able to get in touch with his neurosurgeon giving clearance for earlier injection. SILVIA ARCE PA-C [address] [place] [address], [id number], [place] [facility], P 12/27/2022 09:30:00
--- OUTSIDE RECORDS SUMMARY | 2024-11-27 11:47 | XMS_ITS ---
Author Name [facility] Organization Unknown History of Medication Use Medication Directions Dispensed Refills Start Date End Date Stat us methylPREDNISolone (MEDROL DOSEPAK) 4 MG tablet follow package directions 07/18/2023 active Problems Problem Status Onset Date Problem Type Date of Resoluti on Source Nontraumatic complete tear of right rotator cuff active En[facility]DiagnosisAct [facility] Tendinitis of left rotator cuff active EncounterDiagnosisAct [facility] Bilateral shoulder pain, unspecified chronicity active EncounterDiagnosisAct [facility]
--- OUTSIDE RECORDS SUMMARY | 2024-11-27 11:47 | XMS_ITS | Encounter Summary ---
Author Organization [facility] Address [address] [place] [address] Phone Care Team Providers Care Assembler [employer] Name Role Phone Unavailable Primary Care Provider Unavailabl e Encounter Details Date Type Department Care Team (Late st Contact Info) Description 03/13/2023 Telephone [facility] [address] [place] [address] Lucy Coelho Social History Tobacco Use Types Packs/Day Years Used Date Smoking Tobacco: Never Assessed Sex and Gender Information Value Date Recorded Sex Assigned at Not on file Legal Sex Male 5:21 PM EST Gender Identity Not on file Sexual Orientation Not on file documented as of this encounter Miscellaneous Notes * Telephone Encounter - Lucy Coelho - 03/13/2023 2:39 PM EDT PT is looking for a sooner appointment, he is a Dr[facility] Roach [facility]. He has one on 03/26/23 but he is checking in for a sooner appointment. PT says [facility] told him to call our office. documented in this encounter Plan of Treatment Not on file documented as of this encounter Visit Diagnoses Not on filedocumented in this encounter
--- OUTSIDE RECORDS SUMMARY | 2024-11-27 11:47 | XMS_ITS | Encounter Summary ---
Author Organization [facility] Address [address] [place] [address] Care Team Providers Care Pizza Baker Name Role Phone Ronald Desai MD Primary Care Provider [phone] Encounter Details Date Type Department Care Team (Late Contact Info) Description 08/21/2024 Lab Requisition [facility] - Main Lab 299 [facility] [place] [phone] Rajeev Diaz MD [address] [place] [address] Dysphagia, unspecified Social History Tobacco Use Types Packs/Day Years Used Date Smoking Tobacco: Never Smokeless Tobacco: Never Alcohol Use Standard Drinks/Week Comments No 0 (1 standard drink = 0.6 oz pur e alcohol) Sex and Gender Information Value Date Recorded Sex Assigned at Not on file Legal Sex Male 9:16 PM EST Gender Identity Not on file Sexual Orientation Not on file documented as of this encounter Plan of Treatment Upcoming Encounters Date Type Department Care Team (Late Contact Info) Description 12/08/2024 9:15 AM EST Office Visit Orthopedic Surgery [facility] [address] [phone] David Beltre, DPM [address] [address] 12/16/2024 2:00 PM EST Office Visit Nephrology [address] [phone] Marcelo Roach MD [address] [facility] [address] [phone] 12/18/2024 8:50 AM EST Office Visit Pulmonolgy - [place] [address] [phone] Suzie Bates NP [address] [address] 12/22/2024 7:[address] [facility] Xray [address] [place] [phone] 05/11/2025 3:00 PM EDT [facility] [address] [place] [phone] Marcelo Roach MD [address] [phone] 05/27/2025 9:00 AM EDT Office Visit Adult Medicine [facility] [address] [place] [address] Magui Pang PA [address] [place] [address] documented as of this encounter Visit Diagnoses Diagnosis Dysphagia, unspecified documented in this encounter Additional Health Concerns Infection Onset Date Last Indicated Resolved Time Respiratory Rule-Out 11/19/2024 11/19/2024 025 11:34 PM EST COVID-19 Rule-Out 11/19/2024 11/19/2024 11/19/2024 11:34 PM EST documented as of this encounter Care Teams Pizza Baker Relationship Specialty Start Date End Date Ronald Desai MD [address] [place] [address] PCP - General Internal Medicine 07/16/22 documented as of this encounter
--- OUTSIDE RECORDS SUMMARY | 2024-11-27 11:47 | XMS_ITS | Encounter Summary ---
Author Organization [facility] Address [address] [place] [address] Care Team Providers Care Lead Designer Name Role Phone Ronald Desai MD Primary Care Provider Encounter Details Date Type Department Care Team (Late Contact Info) Description 08/15/2024 Lab Requisition [facility] - Main Lab 299 [facility] [place] [phone] Rajeev Diaz MD [address] [place] [address] Dysphagia, unspecified Social History Tobacco Use Types [...] 9:15 AM EST Office Visit Orthopedic Surgery [facility] [address] [phone] David Beltre, DPM [address] [address] 12/16/2024 2:00 PM EST Office Visit Nephrology [address] [phone] Marcelo Roach MD [address] [facility] [address] [phone] 12/18/2024 8:50 AM EST Office Visit Pulmonolgy - [place] [address] [phone] Suzie Bates NP [address] [address] 12/22/2024 7:45 AM EDT Appointment [facility] Xray [address] [place] [phone] 05/11/2025 3:00 PM EDT [facility] [address] [facility] [place] [address] Marcelo Roach MD [address] [phone] 05/27/2025 9:00 AM EDT Office Visit Adult [facility] [address] [place] [address] Magui Pang PA [address] [place] [address] documented as of this encounter Visit Diagnoses Diagnosis Dysphagia, unspecified documented in this encounter Additional Health Concerns Infection Onset Date Last Indicated Resolved Time Respiratory Rule-Out 11/19/2024 11/19/2024 025 11:34 PM EST COVID-19 Rule-Out 11/19/2024 11/19/2024 11/19/2024 11:34 PM EST documented as of this encounter Care Teams Lead Designer Relationship Specialty Start Date End Date Ronald Desai MD [address] [place] [address] PCP - General Internal Medicine 07/16/22 documented as of this encounter
--- OUTSIDE RECORDS SUMMARY | 2024-11-27 11:47 | XMS_ITS | Clinical Summary ---
Author Organization [facility] Address [address] [place] [address] Care Team Providers Care Warehouse Receiving Supervisor Name Role Phone Ronald Desai MD Primary Care Provider [phone] Medications Medication Sig Dispensed Refills Start Date End Date Status LORazepam (Ativan) 1 MG tablet Take 1 tab 1 hour prior to MRI study. Must have somebody bring you to and from imaging exam. 1 tablet 0 09/19/2022 Active albuterol 108 (90 Base) MCG/ACT inhaler TAKE 2 PUFFS BY MOUTH EVERY 4 TO 6 HOURS NEEDED 0 08/21/2022 Active cetirizine (ZyrTEC) 10 MG tablet TAKE 1 TABLET BY MOUTH EVERY DAY (ALLERGIES) 0 06/01/2021 Active D-1000 Extra Strength 25 MCG (1000 UT) tablet Take by mouth daily. 0 09/07/2022 Active Repatha SureClick 140 MG/ML injection INJECT 140 MG INTO THE SKIN EVERY 14 DAYS. 0 09/17/2022 Active ezetimibe (ZETIA) tablet 10 mg 0 09/22/2022 Active fluticasone (FLONASE) 50 MCG/ACT nasal spray 2 PUFF INTO BOTH NOSTRILS ONCE A DAY 0 08/07/2022 Active fluticasone-salmetero l (Wixela Inhub) 500-50 MCG/ACT AEPB TAKE 1 PUFF BY MOUTH EVERY 12 HOURS IN THE MORNING AND IN THE EVENING 0 08/21/2022 Active furosemide (LASIX) 20 MG tablet TAKE 1 TABLET BY MOUTH NEEDED (LEG EDEMA). 0 08/07/2022 Active gabapentin (NEURONTIN) 100 MG capsule Take 1 capsule (100 mg total) by mouth 2 (two) times a day. 0 08/26/2022 Active losartan (COZAAR) tablet 25 mg Take 1 tablet (25 mg total) by mouth daily. 0 09/21/2022 Active montelukast (SINGULAIR) 10 MG tablet Take 1 tablet (10 mg total) by mouth every evening. 0 08/21/2022 Active omeprazole (PriLOSEC) 20 MG capsule Take 1 capsule (20 mg total) by mouth 2 (two) times a day. 0 08/06/2022 Active tiZANidine (ZANAFLEX) 4 MG tablet Take 1 tablet (4 mg total) by mouth daily as needed. for muscle spasms 0 08/27/2022 Active valACYclovir (VALTREX) 500 MG tablet TAKE 1 TABLET BY MOUTH TWICE A DAY FOR 3 DAYS 0 08/07/2022 Active Active Problems Problem Noted Date Diagnosed Date Bilateral shoulder region arthritis 09/05/2022 Nontraumatic complete tear of right rotator cuff 09/05/2022 Impingement syndrome of shoulder region 09/05/20 Social History Tobacco Use Types Packs/Day Years Used Date Smoking Tobacco: Never Assessed Sex and Gender Information Value Date Recorded Sex Assigned at Not on file Gender Identity Not on file Sexual Orientation Not on file Job Start Date Occupation Industry Not on file Not on file Not on file Plan of Treatment Health Maintenance Due Date Last Done Comments Hepatitis C Screening 1955 Depression Screening 1967 Preventative Health Evaluation 1973 Colon Cancer Screening (Colonoscopy) 2000 Fall Risk Assessment 2020 COVID-19 Vaccine ( season) 2024 11/04/2021, 10/03/2021, 01/09/2021, Additional history exists Influenza Vaccine (#1) 2024 2, 07/07/2021, 07/28/2020, Additional history exists DTap / Tdap / Td (3 - Td or Tdap) 07/16/2027 07/16/2017, 05/28/2007 Pneumococcal Vaccine (3 of 3 - PPSV23 or PCV20) 08/17/2027 08/17/2022, 07/15/2018 RSV Adult > 60+ Yrs or (1 - 1-dose 75+ series) 2030 Shingrix-Zoster Vaccine Completed 05/29/2021, 02/24 Hepatitis B Vaccines Aged Out No long er eligible based on patient's age to complete this topic RSV Ped < 20 months Aged Out No longe r eligible based on patient's age to complete this topic Care Teams Warehouse Receiving Supervisor Relationship Specialty Start Date End Date Ronald Desai MD [address] [place] [id number] PCP - General Hospitalist Medicine 08/27/22
--- OUTSIDE RECORDS SUMMARY | 2024-11-27 11:47 | XMS_ITS | Encounter Summary ---
Author Organization [facility] Address [address] [place] [address] Care Team Providers Care Hairspring Truer Name Role Phone Ronald Desai MD Primary Care Provider [phone] Encounter Details Date Type Department Care Team (Late Contact Info) Description 10/16/2024 Telephone Adult Medicine [facility] [address] [place] [phone] Ronald Desai MD [address] [place] [phone] Social History Tobacco Use Types Packs/Day Years [...] on file documented as of this encounter Progress Notes * Hannah Vazquez - 11/12/2024 9:07 AM EST error documented in this encounter Plan of Treatment Upcoming Encounters Date Type Department Care Team (Late Contact Info) Description 12/08/2024 9:15 AM EST Office Visit Orthopedic Surgery - [place] [address] [phone] David Beltre, DPM [address] [address] 12/16/2024 2:00 PM EST Office Visit Nephrology [facility] [address] [place] [address] Marcelo Roach MD [address] [phone] 12/18/2024 8:50 AM EST Office Visit Pulmonolgy [facility] [address] [phone] Suzie Bates NP [address] [address] 12/22/2024 7:45 AM EDT Appointment [facility] Xray [address] [place] [phone] 05/11/2025 3:00 PM EDT Office Visit Nephrology - [facility] [address] [place] [address] Marcelo Roach MD [address] [phone] 05/27/2025 9:00 AM EDT Office Visit Adult Medicine [facility] [address] [place] [address] Magui Pang PA [address] [place] [address] documented as of this encounter Visit Diagnoses Not on filedocumented in this encounter Care Teams Hairspring Truer Relationship Specialty Start Date End Date Ronald Desai MD [address] [place] [address] PCP - General Internal Medicine 07/16/22 documented as of this encounter
--- OUTSIDE RECORDS SUMMARY | 2024-11-27 11:47 | XMS_ITS | Encounter Summary ---
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 Name Role Phone Ronald Carty MD Primary Care Provider [phone] Reason for Referral * Consultation (Routine) - Authorized Specialty Diagnoses / Procedures Referred By Contac t Referred To Contact Urology Diagnoses Elevated PSA Ronald Carty MD [address] [place] [phone] Phone: tel: fax: [facility] [address] [address] Phone: tel: fax: Referral ID Status Reason Start Date Expiration Date Visits Requested Visits Authorized [id number] Authorized Specialty Services Required 10/27/2024 10/27/2025 1 1 Reason for Visit * Reason Comments Follow-up Med review Encounter Details Date Type Department Care Team (Late st Contact Info) Description 10/27/2024 8:00 AM EST Office Visit Adult Medicine [address] [phone] Ronald Carty MD [address] [place] [phone] Primary hypertension (Primary Dx); Mixed hyperlipidemia; Chronic obstructive pulmonary disease, unspecified COPD type (CMS/HCC); Obstructive sleep apnea syndrome; Gastroesophageal reflux disease without esophagitis; Stage 3a chronic kidney disease (CMS/HCC); Lumbar radiculopathy; S/P cervical spinal fusion; Cognitive impairment; Muscle twitching; Screening for prostate cancer; Screening for thyroid disorder; Elevated PSA Social History Tobacco Use Types Packs/Day Years [...] on file documented as of this encounter Last Filed Vital Signs Vital Sign Reading Time Taken Comments Blood Pressure 138/80 10/27/2024 8:10 AM EST Pulse 74 10/27/2024 8:10 AM EST Temperature 36.9 ??C (98.4 ??F) 10/27/2024 8:10 AM ES T Respiratory Rate 16 10/27/2024 8:10 AM EST Oxygen Saturation - - Inhaled Oxygen Concentration - - Weight 105 kg (231 lb) 10/27/2024 8:10 AM EST Height 182.9 cm (6') 10/27/2024 8:10 AM EST Body Mass Index 31.33 10/27/2024 8:10 AM EST documented in this encounter Ordered Prescriptions Prescription Sig Dispense Quantity Refills Last Filled Start Date End Date gabapentin (NEURONTIN) 100 mg capsule Take 1 capsule (100 mg total) by mouth 2 (two) times a day. 60 capsule 3 10/27/2024 ezetimibe (ZETIA) 10 mg tablet Take 1 tablet (10 mg total) by mouth 1 (one) time each day. 90 tablet 1 10/27/2024 losartan (COZAAR) 25 mg tablet Take 1 tablet (25 mg total) by mouth 1 (one) time each day. 90 tablet 1 10/27/2024 fenofibrate (TRICOR) 145 mg tablet Take 1 tablet (145 mg total) by mouth 1 (one) time each day. 90 each 1 10/27/2024 cyclobenzaprine (FLEXERIL) 5 mg tablet Take 1 tablet (5 mg total) by mouth at bedtime as needed for muscle spasms. MAY CAUSE DROWSINESS.DONT DRIVE 30 tablet 3 10/27/2024 albuterol HFA (PROAIR HFA ; PROVENTIL HFA ; VENTOLIN HFA) 90 mcg/actuation inhaler Inhale 2 puffs by mouth every 6 (six) hours if needed for wheezing or shortness of breath. This is a Rescue Medication; not exceed 12 inhalations/24 hrs. - Inhalation 6.7 g 3 10/27/2024 gabapentin (NEURONTIN) 100 mg capsule Take 2 capsules (200 mg total) by mouth 2 (two) times a day. 60 capsule 3 10/27/2024 documented in this encounter Progress Notes * Ronald Carty MD - 10/27/2024 8:00 AM ESTAddended by: RONALD CARTY on: 10/27/2024 08:41 PM Modules accepted: Orders * Ronald Carty MD - 10/27/2024 8:00 AM EST CHIEF COMPLAINT: Follow-up (Med review ) IDENTIFIER: Pete Ceballos is a 68 y.o. old male. HPI: 68-year-old male patient with a past medical history of hypertension, hyperlipidemia, CKD stage III, asthma/COPD, NEO not compliant with CPAP therapy, GERD, fatty liver, gallstones, cervical radiculopathy with right arm symptoms, status post cervical fusion surgery, L2-L3 moderate to severe spinal stenosis, s/p L2 -L3 decompression, muscle twitching's, ataxia, cognitive impairment and obesity, who is seen here for med review follow-up exam. He was recently seen by the manager port for hammertoes and plantar fasciitis. He complained of bilateral foot pain, knee pain. Today he bought the home medications and I reviewed your home medications and meds are reconciled. He is having an appointment with the neurologist at [facility] and currently he is not taking Sinemet and Aricept. Asthma-COPD symptoms are stable. He is not compliant with CPAP therapy. He is mildly ataxic and I strongly recommended him to use cane for ambulation. He was recently seen by the nut blanker operator for GERD. Health maintenance is reviewed. Recent colonoscopy was poor preparation and Cologuard test was negative in March 2024. Ordered PSA level. ROS: GENERAL: No malaise, significant weight loss or fever HEENT: No changes in hearing or vision, nose bleeds or other nasal problems NECK: No lumps RESPIRATORY: No cough, wheezing or shortness of breath CARDIOVASCULAR: No chest pain, or palpitations GI: No abdominal pain, hematochezia, melena : No dysuria, oliguria, polyuria, hematuria, flank pain MUSCULOSKELETAL: Bilateral foot pain SKIN: No lesions, rash or itching NEURO: No persistent headache, syncope, seizures, weakness or numbness PAST MEDICAL HISTORY: Patient Active Problem List Diagnosis Date Noted S/P cervical spinal fusion 10/26/2024 Cognitive impairment 10/26/2024 Muscle twitching 10/26/2024 Sensation of lump in throat 04/17/2024 Hepatomegaly 12/18/2023 Dysplastic nevi 12/18/2023 Thoracic and lumbosacral neuritis 12/18/2023 Pre-operative cardiovascular examination 12/18/2023 Lumbar radiculopathy 11/20/2023 Allergic rhinitis 10/28/2023 Peripheral neuropathy 01/25/2023 Localized, primary osteoarthritis of shoulder region 12/27/2022 Epigastric discomfort 10/31/2022 Bilateral shoulder region arthritis 09/05/2022 Impingement syndrome of shoulder region 09/05/2022 Nontraumatic complete tear of right rotator cuff 09/05/2022 Primary hypertension 06/26/2022 Dyspnea on exertion 04/19/2022 Heart murmur 04/19/2022 Mixed conductive and sensorineural hearing loss of right ear 08/22/2021 Neck pain 08/22/2021 Refractory migraine 08/22/2021 Sensorineural hearing loss (SNHL) of left ear 08/22/2021 Herpes simplex infection 07/07/2021 Muscle cramps 03/17/2021 Flatulence, eructation, and gas pain 10/24/2020 Chronic pharyngitis 10/13/2019 Sensorineural hearing loss (SNHL) of both ears 09/25/2019 Bilateral acute serous otitis media 07/21/2019 Acute frontal sinusitis 07/07/2019 Otalgia of both ears 08/15/2018 Dysphagia 08/15/2018 Gallbladder polyp 04/09/2018 Gastroesophageal reflux disease without esophagitis 08/01/2017 Methacholine challenge positive 08/01/2017 Mild persistent asthma without complication 08/01/2017 Obesity (BMI 30-39.9) 08/01/2017 Snoring 07/15/2017 Infective otitis externa of right ear 04/26/2017 Dizziness and giddiness 04/03/2017 Posterior rhinorrhea 04/03/2017 Acute pharyngitis 04/03/2017 Chronic mycotic otitis externa 10/17/2016 Otorrhea of right ear 06/08/2016 Bilateral tinnitus 03/07/2016 Cellulitis of left external ear 02/22/2016 Disorder of both eustachian tubes 02/22/2016 Elevated PSA 01/18/2016 Nuclear sclerosis of both eyes 01/13/2016 Spinal stenosis of cervical region 11/08/2015 Cervical radiculopathy 11/08/2015 Spinal stenosis of lumbar region 11/08/2015 Lung nodule seen on imaging study 04/18/2015 Mild chronic obstructive pulmonary disease ([facility]/HCC) 03/28/2015 Chronic obstructive pulmonary disease ([facility]/HCC) 03/28/2015 Dysphagia 01/27/2015 Dementia ([facility]/HCC) 10/15/2012 Stage 3 chronic kidney disease ([facility]/HCC) 01/06/2012 Sleep apnea 06/01/2011 Obstructive sleep apnea syndrome 06/01/2011 Hyperlipidemia 10/18/2010 Mixed hyperlipidemia 10/18/2010 Adjustment disorder with mixed anxiety and depressed mood 03/29/2010 Renal cyst 01/04/2010 Tear of supraspinatus tendon 01/17/2009 Neoplasm of uncertain behavior of skin 10/30/2007 Abnormality of gait 07/04/2007 Allergic rhinitis 05/06/2007 Past Surgical History: Procedure Laterality Date COLONOSCOPY 10/21/2007 PROCEDURE: HISTORICAL COLONOSCOPY; COMMENT: normal; repeat in ten years HERNIA REPAIR PROCEDURE: HISTORICAL HERNIA REPAIR/UMB; COMMENT: dr. mcneil HERNIA REPAIR 10/29/2018 PROCEDURE: REPAIR UMBILICAL HERNIA; COMMENT: Dr. Mcneil MOLE REMOVAL PROCEDURE: HISTORICAL MOLE (REMOVAL OF) NASAL SEPTUM SURGERY PROCEDURE: OK SEPTOPLASTY/SUBMUCOUS RESECJ W/WO CARTILAGE GRF NECK SURGERY PROCEDURE: HISTORICAL NECK SURGERY; COMMENT: bone spur surgery SHOULDER SURGERY Left PROCEDURE: HISTORICAL SHOULDER SURGERY UPPER GASTROINTESTINAL ENDOSCOPY 07/28/2009 PROCEDURE: OK UPPER GI ENDOSCOPY PERFORMED; COMMENT: R/o Laurent's esophagus- biopsy:mild chronic inflammation, mild gastritis-biopsy:gastritis(HPylori+), normal duodenum-biopsy:Nl SOCIAL HISTORY: Social History Tobacco Use Smoking status: Never Smokeless tobacco: Never Substance Use Topics Alcohol use: No FAMILY HISTORY: Family History Problem Relation Name Age of Onset Glaucoma Father Lung cancer Mother No Known Problems Brother Breast cancer Sister 40s, uni No Known Problems Maternal Grandfather No Known Problems Maternal Grandmother No Known Problems Paternal Grandfather No Known Problems Paternal Grandmother No Known Problems Aunt No Known Problems Uncle No Known Problems Other Blindness Neg Hx Cataracts Neg Hx Macular degeneration Neg Hx Strabismus Neg Hx Family Status Relation Name Status Father Alive unknown Mother Brother (Not Specified) Sister (Not Specified) MGF (Not Specified) MGM (Not Specified) PGF (Not Specified) PGM (Not Specified) Aunt (Not Specified) Uncle (Not Specified) Other (Not Specified) Neg Hx (Not Specified) No partnership data on file MEDICATIONS DISCONTINUED/REORDERED: Medications Discontinued During This Encounter Medication Reason aluminum-magnesium hydroxide-simethicone (MAALOX) 200-200-20 mg/5 mL suspension diazePAM (VALIUM) 5 mg tablet evolocumab (Repatha SureClick) 140 mg/mL pen injector injection Cost of medication fexofenadine (GERONIMO) 180 mg tablet fluticasone propion-salmeteroL (ADVAIR DISKUS) 500-50 mcg/dose diskus inhaler LORazepam (ATIVAN) 1 mg tablet tiZANidine (ZANAFLEX) 4 mg tablet ipratropium-albuteroL (Combivent Respimat) 20-100 mcg/actuation inhaler albuterol-budesonide (Airsupra) 90-80 mcg/actuation HFA aerosol inhaler carbamide peroxide (Murine Ear Wax Removal System) 6.5 % otic solution calcium carbonate/vitamin D3 (CALCIUM 600 + D,3, ORAL) carbidopa-levodopa (SINEMET) 25-100 mg per tablet doxycycline hyclate (VIBRA-TABS) 100 mg tablet lovastatin (MEVACOR) 40 mg tablet tiotropium (Spiriva Respimat) 1.25 mcg/actuation inhalation spray guaiFENesin (ROBITUSSIN) 100 mg/5 mL liquid furosemide (LASIX) 20 mg tablet hydrocortisone 2.5 % cream albuterol HFA (PROAIR HFA ; PROVENTIL HFA ; VENTOLIN HFA) 90 mcg/actuation inhaler Reorder cyclobenzaprine (FLEXERIL) 5 mg tablet Reorder gabapentin (NEURONTIN) 100 mg capsule Reorder donepeziL (ARICEPT) 5 mg tablet ezetimibe (ZETIA) 10 mg tablet Reorder losartan (COZAAR) 25 mg tablet Reorder fenofibrate micronized (LOFIBRA) 200 mg capsule gabapentin (NEURONTIN) 100 mg capsule Reorder ACTIVE MEDICATIONS: Outpatient Medications Marked as Taking for the 10/27/24 encounter (Office Visit) with Ronald Carty MD Medication Sig Dispense Refill albuterol HFA (PROAIR HFA ; PROVENTIL HFA ; VENTOLIN HFA) 90 mcg/actuation inhaler Inhale 2 puffs by mouth every 6 (six) hours if needed for wheezing or shortness of breath. This is a Rescue Medication; not exceed 12 inhalations/24 hrs. - Inhalation 6.7 g 3 aluminum-magnesium hydroxide-simethicone (Mylanta Maximum Strength) 400-400-40 mg/5 mL suspension Take 10 mL by mouth 4 (four) times a day (before meals and nightly). 900 mL 11 aspirin 81 mg EC tablet Take 1 tablet (81 mg total) by mouth 1 (one) time each day. bisacodyL (DULCOLAX) 5 mg EC tablet Take 2 tablets (10 mg total) by mouth 1 (one) time each day if needed. AT 6PM DIRECTED carboxymethylcellulose (Refresh Tears) 0.5 % ophthalmic solution Administer 1 drop into affected eye(s) 3 (three) times a day if needed for dry eyes. cetirizine (ZyrTEC) 10 mg tablet Take 1 tablet (10 mg total) by mouth. cholecalciferol (VITAMIN D-3) 25 mcg (1,000 unit) tablet Take 1 tablet (1,000 Units total) by mouth1 (one) time each day. cyclobenzaprine (FLEXERIL) 5 mg tablet Take 1 tablet (5 mg total) by mouth at bedtime as needed formuscle spasms. MAY CAUSE DROWSINESS.DONT DRIVE 30 tablet 3 dicyclomine (BENTYL) 10 mg capsule Take 1 capsule (10 mg total) by mouth. docusate sodium (COLACE) 100 mg capsule Take 1 capsule (100 mg total) by mouth 2 (two) times a day. ezetimibe (ZETIA) 10 mg tablet Take 1 tablet (10 mg total) by mouth 1 (one) time each day. 90 tablet 1 fluticasone propionate (FLONASE) 50 mcg/actuation nasal spray Administer 2 sprays into each nostril1 (one) time each day. gabapentin (NEURONTIN) 100 mg capsule Take 1 capsule (100 mg total) by mouth 2 (two) times a day. 60 capsule 3 ipratropium-albuteroL (DUONEB) 0.5-2.5 mg/3 mL nebulizer solution Inhale 3 mL by mouth. ketoconazole (NIZORAL) 2 % shampoo Apply topically 1 (one) time each day if needed. Lactobacillus acidophilus 0.5 mg (100 million cell) tablet Take 1 tablet by mouth 2 (two) times a day. lidocaine (LIDODERM) 5 % patch Place 1 patch on the skin 1 (one) time each day. Apply for no more than 12 hours in any 24 hour period. - loratadine (CLARITIN) 10 mg tablet Take 1 tablet (10 mg total) by mouth 1 (one) time each day. losartan (COZAAR) 25 mg tablet Take 1 tablet (25 mg total) by mouth 1 (one) time each day. 90 tablet 1 magnesium amino acid chelate 100 mg tablet Take 1 tablet by mouth 1 (one) time each day. montelukast (SINGULAIR) 10 mg tablet Take 1 tablet (10 mg total) by mouth at bedtime. multivitamin with iron-minerals 9 mg iron/15 mL liquid Take 15 mL by mouth. pantoprazole (PROTONIX) 20 mg EC tablet Take 1 tablet (20 mg total) by mouth 2 (two) times a day. polyethylene glycol (Gavilax) 17 gram/dose oral powder Take 17 g by mouth. PLEASE SEE ATTACHED FOR DETAILED DIRECTIONS sodium chloride (OCEAN) 0.65 % nasal spray Administer 1 spray into each nostril 2 (two) times a dayif needed for congestion. needed for Other (nasal dryness or congestion, with use of CPAP valACYclovir (VALTREX) 500 mg tablet Take 1 tablet (500 mg total) by mouth 1 (one) time each day. zinc gluconate 50 mg tablet Take 1 capsule by mouth 1 (one) time each day. [DISCONTINUED] albuterol HFA (PROAIR HFA ; PROVENTIL HFA ; VENTOLIN HFA) 90 mcg/actuation inhaler Inhale 2 puffs by mouth every 6 (six) hours if needed for wheezing or shortness of breath. This is a Rescue Medication; not exceed 12 inhalations/24 hrs. - Inhalation [DISCONTINUED] albuterol-budesonide (Airsupra) 90-80 mcg/actuation HFA aerosol inhaler Inhale by mouth every 6 (six) hours if needed. [DISCONTINUED] aluminum-magnesium hydroxide-simethicone (MAALOX) 200-200-20 mg/5 mL suspension Take30 mL by mouth 4 (four) times a day if needed. [DISCONTINUED] calcium carbonate/vitamin D3 (CALCIUM 600 + D,3, ORAL) Take 1 tablet by mouth 1 (one) time each day. [DISCONTINUED] carbamide peroxide (Murine Ear Wax Removal System) 6.5 % otic solution PLEASE SEE ATTACHED FOR DETAILED DIRECTIONS [DISCONTINUED] carbidopa-levodopa (SINEMET) 25-100 mg per tablet Take 1 tablet by mouth 3 (three) times a day. FOR 30 DAYS [DISCONTINUED] cyclobenzaprine (FLEXERIL) 5 mg tablet Take 1 tablet (5 mg total) by mouth 2 (two) times a day if needed for muscle spasms. MAY CAUSE DROWSINESS.DONT DRIVE [DISCONTINUED] diazePAM (VALIUM) 5 mg tablet Take 1 tablet (5 mg total) by mouth every 1 (one) hour. before MRI scan. This medication may cause drowsiness/sleepiness and you need a ride on that day -Oral [DISCONTINUED] donepeziL (ARICEPT) 5 mg tablet Take 1 tablet (5 mg total) by mouth at bedtime. [DISCONTINUED] doxycycline hyclate (VIBRA-TABS) 100 mg tablet Take 1 tablet (100 mg total) by mouth2 (two) times a day. [DISCONTINUED] evolocumab (Repatha SureClick) 140 mg/mL pen injector injection Inject 1 mL (140 mg total) under the skin every 14 (fourteen) days. [DISCONTINUED] ezetimibe (ZETIA) 10 mg tablet Take 1 tablet (10 mg total) by mouth 1 (one) time each day. [DISCONTINUED] fenofibrate micronized (LOFIBRA) 200 mg capsule Take 1 capsule (200 mg total) by mouth 1 (one) time each day in the morning. Before breakfast [DISCONTINUED] fexofenadine (GERONIMO) 180 mg tablet Take 1 tablet (180 mg total) by mouth at bedtime. [DISCONTINUED] fluticasone propion-salmeteroL (ADVAIR DISKUS) 500-50 mcg/dose diskus inhaler Inhale1 puff by mouth 2 (two) times a day. [DISCONTINUED] furosemide (LASIX) 20 mg tablet Take 1 tablet (20 mg total) by mouth at bedtime. [DISCONTINUED] gabapentin (NEURONTIN) 100 mg capsule Take 2 capsules (200 mg total) by mouth. [DISCONTINUED] gabapentin (NEURONTIN) 100 mg capsule Take 2 capsules (200 mg total) by mouth 2 (two) times a day. 60 capsule 3 [DISCONTINUED] guaiFENesin (ROBITUSSIN) 100 mg/5 mL liquid Take 10 mL (200 mg total) by mouth. [DISCONTINUED] hydrocortisone 2.5 % cream Apply topically 2 (two) times a day. [DISCONTINUED] ipratropium-albuteroL (Combivent Respimat) 20-100 mcg/actuation inhaler Inhale 1 puff by mouth 4 (four) times a day. [DISCONTINUED] LORazepam (ATIVAN) 1 mg tablet Take 1 tablet (1 mg total) by mouth. 30 minutes before the MRI scan for claustrophobia [DISCONTINUED] losartan (COZAAR) 25 mg tablet Take 1 tablet (25 mg total) by mouth 1 (one) time each day. [DISCONTINUED] lovastatin (MEVACOR) 40 mg tablet Take 1 tablet (40 mg total) by mouth. [DISCONTINUED] tiotropium (Spiriva Respimat) 1.25 mcg/actuation inhalation spray Inhale 2 puffs by mouth. [DISCONTINUED] tiZANidine (ZANAFLEX) 4 mg tablet Take 1 tablet (4 mg total) by mouth 1 (one) time each day if needed for muscle spasms. ALLERGIES: Allergies Allergen Reactions House Dust Mite Other Reaction(s): Runny Nose/Rhinitis Pravastatin Other Reaction(s): UNKNOWN PHYSICAL EXAM: Visit Vitals BP 138/80 Pulse 74 Temp 36.9 ??C (98.4 ??F) (Oral) Resp 16 Ht 1.829 m (72 ) Wt 105 kg (231 lb) BMI 31.33 kg/m?? Smoking Status Never BSA 2.27 m?? Physical Exam APPEARANCE: Alert and in no acute distress EYES: PERRLA, conjunctiva and sclera normal. EARS: External ears normal. NOSE/SINUS: Nares normal. MOUTH/THROAT: no erythema or exudates HEART: RRR with normal S1 and S2, no murmurs LUNG: clear to auscultation, no wheezing ABDOMEN: Bowel sounds normoactive, soft, non-tender and no palpable masses. BACK: No pain to palpation EXTREMITIES: No edema NEURO: Awake, alert and oriented x 3. No focal neurological deficits SKIN: No rashes LABS: @CBC@ No results found for: NA , K , CL , CO2 , GLUCOSE , BUN , CREATININE , CALCIUM , PROT , ALBUMIN , BILITOT , AST , ALT , URICACID , PHOS , MG , ALKPHOS , CKTOTAL , EGFR Lab Results Component Value Date HGBA1C 5.7 05/22/2023 No results found for: TSH Lab Results Component Value Date CHOL 155 04/30/2024 TRIG 495 (A) 04/30/2024 HDL 38 (A) 04/30/2024 LDL 18 04/30/2024 IMAGING: No recent imaging IMPRESSION: 1. Primary hypertension 2. Mixed hyperlipidemia 3. Chronic obstructive pulmonary disease, unspecified COPD type (CMS/HCC) 4. Obstructive sleep apnea syndrome 5. Gastroesophageal reflux disease without esophagitis 6. Stage 3a chronic kidney disease (CMS/HCC) 7. Lumbar radiculopathy 8. S/P cervical spinal fusion 9. Cognitive impairment 10. Muscle twitching 11. Screening for prostate cancer 12. Screening for thyroid disorder PLAN: 1. Blood pressure is stable, patient is counseled for lifestyle changes. Continue losartan 25 mg daily 2. Last triglycerides were 495. He stopped using Repatha a few months ago because of the cost. I will continue Zetia 10 mg daily and I will start him on fenofibrate 145 mg daily. 3. No wheezing, continue Wixela and albuterol MDI. Follow-up with software licensing specialist. He is not compliant with CPAP therapy. 4. Continue Protonix 20 mg twice a day and Mylanta for GERD symptoms 5. Renal function is stable, he is not on any NSAIDs, repeat BMP and follow-up with nephrology. 6. He has a chronic low backache. I will start him on Neurontin 100 mg twice a day, Flexeril 5 mg at night as needed and Tylenol as needed. 7. He is having an appointment with the neurologist at [facility] for cognitive impairment/muscle twitching. Currently he is not on any medications. 8. Labs ordered including A1c, CMP, magnesium, PSA, lipid panel, B12 and TSH 9. Follow-up exam in 4 months All questions and concerns were addressed. Pete Albertoannetteyan verbalizes understanding and agrees with thistreatment plan. Patient was reminded to call or return to the office if any new or existing problems arise. Orders Placed This Encounter Procedures Hemoglobin A1c Comprehensive metabolic panel Magnesium Prostate specific antigen screen Lipid panel with reflex to direct LDL Vitamin B12 Thyroid stimulating hormone with reflex to free t4 and free t3 None Ronald Carty MD on 10/27/2024 at 8:50 AM EST Today's documentation was made using voice recognition software.This note may contain grammatical errors secondary to this software. documented in this encounter Plan of Treatment Upcoming Encounters Date Type Department Care Team (Late st Contact Info) Description 12/08/2024 9:15 AM EST Office Visit Orthopedic Surgery [facility] [address] [phone] David Beltre DPM 175 [facility] 250 [place] [address] 12/16/2024 2:00 PM EST Office Visit Nephrology [address] [phone] Marcelo Roach MD [address] [phone] 12/18/2024 8:50 AM EST Office Visit Pulmonolgy [facility] 175 [facility] 200 [place] [phone] Suzie Bates, RAMAN 175 [facility] 200 [place] [address] 12/22/2024 7:45 AM EDT Appointment [facility] X[facility] [address] [place] [phone] 05/11/2025 3:00 PM EDT Office Visit [facility] [address] [place] [address] Marcelo Roach MD [address] [facility] [address] [place] [address] 05/27/2025 9:00 AM EDT Office Visit Adult [facility] [address] [place] [phone] Magui Pang PA [address] [place] [phone] Scheduled Referrals Name Type Priority Associated Diagnoses Order Schedule Ambulatory referral to Urology Outpatient Referral Routine Elevated PSA 1 Occurrences starting 10/27/2024 until 10/27/2025 documented as of this encounter Results * Thyroid stimulating hormone with reflex to free t4 and free t3 (10/27/2024 9:11 AM EST) TSH 2.60 0.40 - 4.00 mcIU/mL LAB CHEMISTRY METHOD 10/27/2024 2:58 PM EST [facility] Blood Venous blood specimen / Unknown Venipuncture / Unknown 10/27/2024 9:11 AM EST 10/27/2024 9:11 AM EST us Ronald Carty MD LAB BLOOD ORDERABLES Final Result [facility] [address] [place] [address], * Vitamin B12 (10/27/2024 9:11 AM EST) Vitamin B-12 434 250 - 900 pcg/mL LAB CHEMISTRY METHOD 10/27/2024 3:28 PM [facility] Blood Venous blood specimen / Unknown Venipuncture / Unknown 10/27/2024 9:11 AM EST 10/27/2024 9:11 AM EST us Ronald Carty MD LAB BLOOD ORDERABLES Final Result [facility] [address] [place] [address], [place] [phone] * (ABNORMAL) Lipid panel with reflex to direct LDL (10/27/2024 9:11 AM EST) Cholesterol 254(H) 0 - 200 mg/dL LAB CHEMISTRY METHOD 10/27/2024 3:28 PM [facility] Triglycerides 161(H) 0 - 150 mg/dL LAB CHEMISTRY METHOD 10/27/2024 3:28 PM [facility] HDL 59 >=40 mg/dL LAB CHEMISTRY METHOD 10/27/2024 3:28 PM [facility] LDL Calculated 163(H) 0 - 100 mg/dL LAB CHEMISTRY METHOD 10/27/2024 3:28 PM [facility] VLDL Cholesterol [place] 32.2 mg/dL LAB CHEMISTRY METHOD 10/27/2024 3:28 PM [facility] Non HDL Chol. (LDL+VLDL) 195(H) <145 mg/dL LAB CHEMISTRY METHOD 10/27/2024 3:28 PM [facility] Chol/HDL Ratio 4.3 0.0 - 4.4 LAB CHEMISTRY METHOD 10/27/2024 3:28 PM [facility] Blood Venous blood specimen / Unknown Venipuncture / Unknown 10/27/2024 9:11 AM EST 10/27/2024 9:11 AM EST us Ronald Carty MD LAB BLOOD ORDERABLES Final Result Performing Organization Address City/[facility]/ZIP Co de Phone Number [facility] [address] [place] [address], [place] [phone] * (ABNORMAL) Prostate specific antigen screen (10/27/2024 9:11 AM EST) PSA 4.97(H) 0.00 - 4.00 ng/mL LAB CHEMISTRY METHOD 10/27/2024 6:18 PM EST [facility] Blood Venous blood specimen / Unknown Venipuncture / Unknown 10/27/2024 9:11 AM EST 10/27/2024 9:11 AM EST Narrative [facility] - 10/27/2024 6:18 PM EST The Siemens Advia Centaur Chemiluminescent Immunoassay is used. Results obtained with different assay methods or kits cannot be used interchangeably. Results cannot be interpreted as absolute evidence of the presence or absence of malignant disease. us Ronald Carty MD LAB BLOOD ORDERABLES Final Result Performing Organization Address [facility] Co de Phone Number [facility] [address] [place] [address], [place] [phone] * Magnesium (10/27/2024 9:11 AM EST) [facility] Magnesium 2.0 1.9 - 2.6 mg/dL LAB CHEMISTRY METHOD 10/27/2024 2:56 PM EST [facility] Blood Venous blood specimen / Unknown Venipuncture / Unknown 10/27/2024 9:11 AM EST 10/27/2024 9:11 AM EST us Ronald Carty MD LAB BLOOD ORDERABLES Final Result [facility] [address] [place] [address], [place] [phone] * (ABNORMAL) Comprehensive metabolic panel (10/27/2024 9:11 AM EST) Sodium 137 133 - 145 mmol/L LAB CHEMISTRY METHOD 10/27/2024 3:28 PM [facility] Potassium 4.4 3.5 - 5.5 mmol/L LAB CHEMISTRY METHOD 10/27/2024 3:28 PM [facility] Chloride 106 96 - 110 mmol/L LAB CHEMISTRY METHOD 10/27/2024 3:28 PM [facility] CO2 26 21 - 32 mmol/L LAB CHEMISTRY METHOD 10/27/2024 3:28 PM [facility] Anion Gap 5 3 - 11 LAB CHEMISTRY METHOD 10/27/2024 3:28 PM [facility] Glucose 86 70 - 100 mg/dL LAB CHEMISTRY METHOD 10/27/2024 3:28 PM [facility] BUN 24 5 - 25 mg/dL LAB CHEMISTRY METHOD 10/27/2024 3:28 PM [facility] Creatinine 1.63(H) 0.70 - 1.30 mg/dL LAB CHEMISTRY METHOD 10/27/2024 3:28 PM [facility] eGFR 46(L) >=60 mL/min/1. 73m2 LAB CHEMISTRY METHOD 10/27/2024 3:28 PM [facility] Comment:Calculation based on the??Chronic Kidney Disease Epidemiology Collaboration (CKD-EPI) equation refit??without adjustment for race. BUN/Creatinine Ratio 14.7 LAB CHEMISTRY METHOD 10/27/2024 3:28 PM [facility] Calcium 8.5 8.5 - 10.5 mg/dL LAB CHEMISTRY METHOD 10/27/2024 3:28 PM [facility] AST (SGOT) 15 10 - 42 unit/L LAB CHEMISTRY METHOD 10/27/2024 3:28 PM [facility] ALT (SGPT) 43 10 - 60 unit/L LAB CHEMISTRY METHOD 10/27/2024 3:28 PM [facility] Alkaline Phosphatase 116 42 - 121 unit/L LAB CHEMISTRY METHOD 10/27/2024 3:28 PM [facility] Total Protein 7.4 6.0 - 8.0 g/dL LAB CHEMISTRY METHOD 10/27/2024 3:28 PM [facility] Albumin 3.9 3.2 - 5.0 g/dL LAB CHEMISTRY METHOD 10/27/2024 3:28 PM [facility] Total Bilirubin 0.5 0.0 - 1.4 mg/dL LAB CHEMISTRY METHOD 10/27/2024 3:28 PM [facility] Blood Venous blood specimen / Unknown Venipuncture / Unknown 10/27/2024 9:11 AM EST 10/27/2024 9:11 AM EST us Ronald Carty MD LAB BLOOD ORDERABLES Final Result [facility] [address] [place] [address], * Hemoglobin A1c (10/27/2024 9:11 AM EST) Hemoglobin A1C 5.5 <6.5 % LAB CHEMISTRY METHOD 10/27/2024 9:24 PM [facility] Mean Bld Glu Estim. 111 mg/dL LAB CHEMISTRY METHOD 10/27/2024 9:24 PM [facility] Blood Venous blood specimen / Unknown Venipuncture / Unknown 10/27/2024 9:11 AM EST 10/27/2024 9:11 AM EST us Ronald Carty MD LAB BLOOD ORDERABLES Final Result [facility] [address] [place] [address], documented in this encounter Visit Diagnoses Diagnosis Primary hypertension- Primary Unspecified essential hypertension Mixed hyperlipidemia Chronic obstructive pulmonary disease, unspecified COPD type (CMS/HCC) Obstructive sleep apnea syndrome Obstructive sleep apnea (adult) (pediatric) Gastroesophageal reflux disease without esophagitis Esophageal reflux Stage 3a chronic kidney disease (CMS/HCC) Lumbar radiculopathy Thoracic or lumbosacral neuritis or radiculitis, unspecified S/P cervical spinal fusion Arthrodesis status Cognitive impairment Unspecified persistent mental disorders due to conditions classified elsewhere Muscle twitching Abnormal involuntary movements Screening for prostate cancer Special screening for malignant neoplasm of prostate Screening for thyroid disorder Elevated PSA Elevated prostate specific antigen (PSA) documented in this encounter Discontinued Medications Medication Sig Discontinue Reason Start Date End Da te aluminum-magnesium hydroxide-simethicon e (MAALOX) 200-200-20 mg/5 mL suspension Take 30 mL by mouth 4 (four) times a day if needed. 04/30/2023 10/27/2024 diazePAM (VALIUM) 5 mg tablet Take 1 tablet (5 mg total) by mouth every 1 (one) hour. before MRI scan. This medication may cause drowsiness/sleepiness and you need a ride on that day - Oral 04/21/2024 10/27/2024 evolocumab (Repatha SureClick) 140 mg/mL pen injector injection Inject 1 mL (140 mg total) under the skin every 14 (fourteen) days. Cost of medication 12/27/2022 10/27/2024 fexofenadine (GERONIMO) 180 mg tablet Take 1 tablet (180 mg total) by mouth at bedtime. 01/13/2024 10/27/2024 fluticasone propion-salmeteroL (ADVAIR DISKUS) 500-50 mcg/dose diskus inhaler Inhale 1 puff by mouth 2 (two) times a day. 08/21/2022 10/27/2024 LORazepam (ATIVAN) 1 mg tablet Take 1 tablet (1 mg total) by mouth. 30 minutes before the MRI scan for claustrophobia 09/19/2022 10/27/2024 tiZANidine (ZANAFLEX) 4 mg tablet Take 1 tablet (4 mg total) by mouth 1 (one) time each day if needed for muscle spasms. 08/27/2022 10/27/2024 ipratropium-albutero L (Combivent Respimat) 20-100 mcg/actuation inhaler Inhale 1 puff by mouth 4 (four) times a day. 11/13/2023 10/27/2024 albuterol-budesonide (Airsupra) 90-80 mcg/actuation HFA aerosol inhaler Inhale by mouth every 6 (six) hours if needed. 10/27/2024 carbamide peroxide (Murine Ear Wax Removal System) 6.5 % otic solution PLEASE SEE ATTACHED FOR DETAILED DIRECTIONS 10/27/2024 calcium carbonate/vitamin D3 (CALCIUM 600 + D,3, ORAL) Take 1 tablet by mouth 1 (one) time each day. 06/11/2023 10/27/2024 carbidopa-levodopa (SINEMET) 25-100 mg per tablet Take 1 tablet by mouth 3 (three) times a day. FOR 30 DAYS 10/27/2024 doxycycline hyclate (VIBRA-TABS) 100 mg tablet Take 1 tablet (100 mg total) by mouth 2 (two) times a day. 11/07/2023 10/27/2024 lovastatin (MEVACOR) 40 mg tablet Take 1 tablet (40 mg total) by mouth. 10/27/2024 tiotropium (Spiriva Respimat) 1.25 mcg/actuation inhalation spray Inhale 2 puffs by mouth. 09/04/20232024 guaiFENesin (ROBITUSSIN) 100 mg/5 mL liquid Take 10 mL (200 mg total) by mouth. 03/19/2024 10/27/2024 furosemide (LASIX) 20 mg tablet Take 1 tablet (20 mg total) by mouth at bedtime. 08/07/2022 10/27/2024 hydrocortisone 2.5 % cream Apply topically 2 (two) times a day. 09/23/2015 10/27/2024 albuterol HFA (PROAIR HFA ; PROVENTIL HFA ; VENTOLIN HFA) 90 mcg/actuation inhaler Inhale 2 puffs by mouth every 6 (six) hours if needed for wheezing or shortness of breath. This is a Rescue Medication; not exceed 12 inhalations/24 hrs. - Inhalation Reorder 10/02/2023 10/27/2024 cyclobenzaprine (FLEXERIL) 5 mg tablet Take 1 tablet (5 mg total) by mouth 2 (two) times a day if needed for muscle spasms. MAY CAUSE DROWSINESS.DONT DRIVE Reorder 11/20/2023 10/27/2024 gabapentin (NEURONTIN) 100 mg capsule Take 2 capsules (200 mg total) by mouth. Reorder 08/26/2022 10/27/2024 donepeziL (ARICEPT) 5 mg tablet Take 1 tablet (5 mg total) by mouth at bedtime. 10/27/2024 ezetimibe (ZETIA) 10 mg tablet Take 1 tablet (10 mg total) by mouth 1 (one) time each day. Reorder 09/22/2022 10/27/2024 losartan (COZAAR) 25 mg tablet Take 1 tablet (25 mg total) by mouth 1 (one) time each day. Reorder 11/05/2023 10/27/2024 fenofibrate micronized (LOFIBRA) 200 mg capsule Take 1 capsule (200 mg total) by mouth 1 (one) time each day in the morning. Before breakfast 10/27/2024 gabapentin (NEURONTIN) 100 mg capsule Take 2 capsules (200 mg total) by mouth 2 (two) times a day. Reorder 10/27/2024 10/27/2024 documented as of this encounter Historical Medications * This list may reflect changes made after this encounter. fluticasone propion-salmeter oL (ADVAIR DISKUS) 500-50 mcg/dose diskus inhaler Inhale 1 puff by mouth 2 (two) times a day. Rinse mouth with water after use to reduce aftertaste and incidence of candidiasis. Do not swallow. 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
--- OUTSIDE RECORDS SUMMARY | 2024-11-27 11:47 | XMS_ITS | Clinical Summary ---
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 Active carboxymethylcel lulose (Refresh Tears) 0.5 % ophthalmic solution Administer 1 drop into affected eye(s) 3 (three) times a day if needed for dry eyes. 7 Active cholecalciferol (VITAMIN D-3) 25 mcg (1,000 unit) tablet Take 1 tablet (1,000 Units total) by mouth 1 (one) time each day. 2 Active docusate sodium (COLACE) 100 mg capsule Take 1 capsule (100 mg total) by mouth 2 (two) times a day. 3 Active fluticasone propionate (FLONASE) 50 mcg/actuation nasal spray Administer 2 sprays into each nostril 1 (one) time each day. 3 Active ipratropium-albu teroL (DUONEB) 0.5-2.5 mg/3 mL nebulizer solution Inhale 3 mL by mouth. 4 Active montelukast (SINGULAIR) 10 mg tablet Take 1 tablet (10 mg total) by mouth at bedtime. 2 Active ketoconazole (NIZORAL) 2 % shampoo Apply topically 1 (one) time each day if needed. 9 Active lidocaine (LIDODERM) 5 % patch Place 1 patch on the skin 1 (one) time each day. Apply for no more than 12 hours in any 24 hour period. - 2 Active magnesium amino acid chelate 100 mg tablet Take 1 tablet by mouth 1 (one) time each day. 1 Active cetirizine (ZyrTEC) 10 mg tablet Take 1 tablet (10 mg total) by mouth. 1 Active aspirin 81 mg EC tablet Take 1 tablet (81 mg total) by mouth 1 (one) time each day. 4 Active dicyclomine (BENTYL) 10 mg capsule Take 1 capsule (10 mg total) by mouth. Active valACYclovir (VALTREX) 500 mg tablet Take 1 tablet (500 mg total) by mouth 1 (one) time each day. Active multivitamin with iron-minerals 9 mg iron/15 mL liquid Take 15 mL by mouth. Active polyethylene glycol (Gavilax) 17 gram/dose oral powder Take 17 g by mouth. PLEASE SEE ATTACHED FOR DETAILED DIRECTIONS Active bisacodyL (DULCOLAX) 5 mg EC tablet Take 2 tablets (10 mg total) by mouth 1 (one) time each day if needed. AT 6PM DIRECTED Active Lactobacillus acidophilus 0.5 mg (100 million cell) tablet Take 1 tablet by mouth 2 (two) times a day. 4 Active loratadine (CLARITIN) 10 mg tablet Take 1 tablet (10 mg total) by mouth 1 (one) time each day. 4 Active sodium chloride (OCEAN) 0.65 % nasal spray Administer 1 spray into each nostril 2 (two) times a day if needed for congestion. needed for Other (nasal dryness or congestion, with use of CPAP Active aluminum-magnesi um hydroxide-simeth icone (Mylanta Maximum Strength) 400-400-40 mg/5 mL suspension Take 10 mL by mouth 4 (four) times a day (before meals and nightly). 900 mL 11 4 Active fluticasone propion-salmeter oL (ADVAIR DISKUS) 500-50 mcg/dose diskus inhaler Inhale 1 puff by mouth 2 (two) times a day. Rinse mouth with water after use to reduce aftertaste and incidence of candidiasis. Do not swallow. Active albuterol HFA (PROAIR HFA ; PROVENTIL HFA ; VENTOLIN HFA) 90 mcg/actuation inhaler Inhale 2 puffs by mouth every 6 (six) hours if needed for wheezing or shortness of breath. This is a Rescue Medication; not exceed 12 inhalations/24 hrs. - Inhalation 6.7 g 3 5 Active cyclobenzaprine (FLEXERIL) 5 mg tablet Take 1 tablet (5 mg total) by mouth at bedtime as needed for muscle spasms. MAY CAUSE DROWSINESS.DONT DRIVE 30 tablet 3 Active fenofibrate (TRICOR) 145 mg tablet Take 1 tablet (145 mg total) by mouth 1 (one) time each day. 90 each 5 Active losartan (COZAAR) 25 mg tablet Take 1 tablet (25 mg total) by mouth 1 (one) time each day. 90 tablet 1 5 Active ezetimibe (ZETIA) 10 mg tablet Take 1 tablet (10 mg total) by mouth 1 (one) time each day. 90 tablet 1 5 Active gabapentin (NEURONTIN) 100 mg capsule Take 1 capsule (100 mg total) by mouth 2 (two) times a day. 60 capsule 3 Active pantoprazole (PROTONIX) 40 mg EC tablet Take 1 tablet (40 mg total) by mouth 2 (two) times a day. Take on empty stomach, wait 30 mins and then eat to activate the medication- before breakfast and supper 60 each 5 Active Active Problems Problem Noted Date Diagnosed Date S/P cervical spinal fusion 10/26/2024 Cognitive impairment 10/26/2024 Muscle twitching 10/26/2024 Sensation of lump in throat 04/17/2024 Hepatomegaly 12/18/2023 Dysplastic nevi 12/18/2023 Thoracic and lumbosacral neuritis 12/18/2023 Pre-operative cardiovascular examination 024 Lumbar radiculopathy 11/20/2023 Allergic rhinitis 10/28/2023 Overview (07/15/2024): Other allergic rhinitis; Note: Date Diagnosed: 10/28/2023 2:26 PM (J30.89) Note: Date Diagnosed: 10/28/2023 2:26 PM (J30.89) Peripheral neuropathy 01/25/2023 Localized, primary osteoarthritis of shoulder re gion 12/27/2022 Epigastric discomfort 10/31/2022 Overview (12/18/2023): Last Assessment & Plan: Patient reports ongoing complaints of epigastric discomfort. He is on omeprazole 20 mg twice daily. He had a stress test and echocardiogram completed within the last year. On physical examination discomfort is reproducible with palpation. Patient encouraged to follow-up with gastroenterology and complete endoscopy as previously recommended. Bilateral shoulder region arthritis 09/05/2022 Impingement syndrome of shoulder region 09/05/20 22 Nontraumatic complete tear of right rotator cuff 09/05/2022 Primary hypertension 06/26/2022 Overview (12/18/2023): Last Assessment & Plan: Patient's blood pressure is under excellent control with a reading today of 120/70. He will continue on his present medical therapies which include losartan and furosemide. Dyspnea on exertion 04/19/2022 Overview (12/18/2023): Last Assessment & Plan: Patient reports baseline exertional shortness of breath which is unchanged. He underwent evaluation with an echocardiogram and nuclear stress test. Both test results were unremarkable and outlined in detailed above. He follows with sales representative meats and is due to repeat a sleep study as he has known sleep apnea which is untreated. He also has history of COPD and uses inhalers. Patient encouraged to follow-up with his sales representative [employer] regularly. Heart murmur 04/19/2022 Overview (12/18/2023): Last Assessment & Plan: On physical examination the patient has a harsh midsystolic murmur present with a grade of 2 out of 6 at the upper right sternal border radiating to the neck. This is unchanged from previous physical examination. An echocardiogram completed 05/2022 showed trace aortic insufficiency and trace mitral insufficiency. Patient does not present with any clinical symptoms of heart failure and he is euvolemic on physical examination. Mixed conductive and sensori neural hearing loss of right ear 08/22/2021 Overview (07/15/2024): Mixed conductive and sensorineural hearing loss, unilateral, right ear with restricted hearing on the contralateral side; Note: Date Diagnosed: 08/22/2021 9:56 AM (H90.A31) Note: Date Diagnosed: 08/22/2021 9:56 AM (H90.A31) Neck pain 08/22/2021 Overview (07/15/2024): Headache, unspecified; Note: Date Diagnosed: 08/22/2021 9:00 AM (R51.9) Note: Date Diagnosed: 08/22/2021 9:00 AM (R51.9) Cervicalgia; Note: Date Diagnosed: 08/22/2021 9:00 AM (M54.2) Note: Date Diagnosed: 08/22/2021 9:00 AM (M54.2) Refractory migraine 08/22/2021 Overview (07/15/2024): Other migraine, intractable, without status migrainosus; Note: Date Diagnosed: 08/22/2021 9:53 AM (G43.819) Note: Date Diagnosed: 08/22/2021 9:53 AM (G43.819) Sensorineural hearing loss (SNHL) of left ear Overview (07/15/2024): Sensorineural hearing loss, unilateral, left ear, with restricted hearing on the contralateral side; Note: Date Diagnosed: 08/22/2021 9:56 AM (H90.A22) Note: Date Diagnosed: 08/22/2021 9:56 AM (H90.A22) Herpes simplex infection 07/07/2021 Muscle cramps 03/17/2021 Overview (12/18/2023): Last Assessment & Plan: Its not quite clear what is causing his muscle cramps is not a side effect of any of the meds he is on for his hyperlipidemia. He is already on zinc magnesium and vitamin B complex with Zanaflex for spasms. Or not can use quinine because of the risk of arrhythmia. This truly does seem to be muscle cramps and not myalgias. Flatulence, eructation, and gas pain 10/24/2020 Chronic pharyngitis 10/13/2019 Overview (07/15/2024): Chronic sore throat; Note: Date Diagnosed: 10/13/2019 10:02 AM (J31.2) Note: Date Diagnosed: 10/13/2019 10:02 AM (J31.2) Sensorineural hearing loss (SNHL) of both ears 1 11/26/2018 Overview (07/15/2024): Sensorineural hearing loss, bilateral; Note: Date Diagnosed: 09/25/2019 10:40 AM (H90.3) Note: Date Diagnosed: 09/25/2019 10:40 AM (H90.3) Bilateral acute serous otitis media 07/21/2019 Overview (07/15/2024): Acute serous otitis media, bilateral; Note: Date Diagnosed: 07/21/2019 10:37 AM (H65.03) Note: Date Diagnosed: 07/21/2019 10:37 AM (H65.03) Acute frontal sinusitis 07/07/2019 Overview (07/15/2024): Acute frontal sinusitis, unspecified; Location: right Note: Date Diagnosed: 07/07/2019 2:09 PM (J01.10) Location: right Location: right Location: right Note: Date Diagnosed: 07/07/2019 2:09 PM (J01.10) Otalgia of both ears 08/15/2018 Overview (07/15/2024): Otalgia, bilateral; Note: Date Diagnosed: 08/15/2018 2:32 PM (H92.03) Note: Date Diagnosed: 08/15/2018 2:32 PM (H92.03) Dysphagia 08/15/2018 Overview (07/15/2024): Dysphagia, unspecified; Note: Date Diagnosed: 11/03/2014 3:16 PM (787.20) Note: Date Diagnosed: 11/03/2014 3:16 PM (787.20) ; Start Date : 11/03/2014 Dysphagia, unspecified; Note: Date Diagnosed: 08/15/2018 2:32 PM (R13.10) Note: Date Diagnosed: 08/15/2018 2:32 PM (R13.10) Gallbladder polyp 04/09/2018 Overview (12/18/2023): Ultrasound 03/2018, radiology recommends repeat in 1 year Gastroesophageal reflux disease without esophagi tis 08/01/2017 Methacholine challenge positive 08/01/2017 Mild persistent asthma without complication 07/14 Obesity (BMI 30-39.9) 08/01/2017 Snoring 07/15/2017 Overview (12/18/2023): 07/04/2017 Home Sleep Study did not reveal sleep apnea. Infective otitis externa of right ear 04/26/2017 Overview (07/15/2024): Other infective otitis externa, left ear; Note: Date Diagnosed: 05/15/2017 12:29 PM (H60.392) Note: Date Diagnosed: 05/15/2017 12:29 PM (H60.392) Other infective otitis externa, right ear; Note: Date Diagnosed: 04/26/2017 11:45 AM (H60.391) Note: Date Diagnosed: 04/26/2017 11:45 AM (H60.391) Dizziness and giddiness 04/03/2017 Overview (07/15/2024): Dizziness and giddiness; Note: Date Diagnosed: 04/03/2017 2:23 PM (R42) Note: Date Diagnosed: 04/03/2017 2:23 PM (R42) Posterior rhinorrhea 04/03/2017 Overview (07/15/2024): Postnasal drip; Note: Date Diagnosed: 04/03/2017 2:25 PM (R09.82) Note: Date Diagnosed: 04/03/2017 2:25 PM (R09.82) Acute pharyngitis 04/03/2017 Overview (07/15/2024): Pharyngitis (acute) NOS; Note: Date Diagnosed: 04/03/2017 2:23 PM (J02.9) Note: Date Diagnosed: 04/03/2017 2:23 PM (J02.9) Chronic mycotic otitis externa 10/17/2016 Overview (07/15/2024): Candidal otitis externa; Location: right Note: Date Diagnosed: 10/17/2016 2:10 PM (B37.84) Location: right Location: right Location: right Note: Date Diagnosed: 10/17/2016 2:10 PM (B37.84) Chronic mycotic otitis externa; Note: Date Diagnosed: 10/17/2016 2:04 PM (380.15) Note: Date Diagnosed: 10/17/2016 2:04 PM (380.15) Otorrhea of right ear 06/08/2016 Overview (07/15/2024): Impacted cerumen, right ear; Note: Date Diagnosed: 08/22/2017 10:27 AM (H61.21) Note: Date Diagnosed: 08/22/2017 10:27 AM (H61.21) Impacted cerumen; Location: bilateral CMS Risk: low risk Condition: uncontrolled Location: bilateral CMS Risk: low risk Condition: uncontrolled Location: bilateral CMS Risk: low risk Condition: uncontrolled Location: bilateral CMS Risk: low risk Condition: uncontrolled Impacted cerumen, bilateral; Note: Date Diagnosed: 02/22/2016 9:22 AM (H61.23) Note: Date Diagnosed: 02/22/2016 9:22 AM (H61.23) Otorrhea, right ear; Note: Date Diagnosed: 06/08/2016 1:45 PM (H92.11) Note: Date Diagnosed: 06/08/2016 1:45 PM (H92.11) Bilateral tinnitus 03/07/2016 Overview (07/15/2024): Tinnitus, bilateral; Note: Date Diagnosed: 03/07/2016 10:22 AM (H93.13) Note: Date Diagnosed: 03/07/2016 10:22 AM (H93.13) Cellulitis of left external ear 02/22/2016 Overview (07/15/2024): Cellulitis of left external ear; Note: Date Diagnosed: 02/22/2016 9:24 AM (H60.12) Note: Date Diagnosed: 02/22/2016 9:24 AM (H60.12) Disorder of both eustachian tubes 02/22/2016 Overview (07/15/2024): Other specified disorders of Eustachian tube, right ear; Note: Date Diagnosed: 12/28/2019 1:01 PM (H69.81) Note: Date Diagnosed: 12/28/2019 1:01 PM (H69.81) Other specified disorders of Eustachian tube, bilateral; Note: Date Diagnosed: 02/22/2016 9:23 AM (H69.83) Note: Date Diagnosed: 02/22/2016 9:23 AM (H69.83) Elevated PSA 01/18/2016 Nuclear sclerosis of both eyes 01/13/2016 Spinal stenosis of cervical region 11/08/2015 Cervical radiculopathy 11/08/2015 Spinal stenosis of lumbar region 11/08/2015 Lung nodule seen on imaging study 04/18/2015 Overview (12/18/2023): Chest xray March 2015, repeat in 3 mo recommended Stable, recheck in 6 months June 2015 Mild chronic obstructive pulmonary disease 03/28 Overview (12/18/2023): Dr Qiu Chronic obstructive pulmonary disease 03/28/2015 Overview (07/15/2024): Dr Qiu Dysphagia 01/27/2015 Overview (12/18/2023): Seen and evalauted by Dr. Conde Dementia 10/15/2012 Overview (12/18/2023): Seen with Tabitha, now on Aricept Stage 3 chronic kidney disease 01/06/2012 Sleep apnea 06/01/2011 Overview (12/18/2023): [facility] Home Sleep Apnea Test: Date 11/06/2022; BMI 31; AHI 6; average oxygen saturation 94% (lowest 85% without saturations <88% for 5% or more of study) - Obstructive Sleep Apnea - mild; without sleep related hypoventilation by 2022 home sleep apnea test. ENT: Evaluation for Snoring and Sleep Apnea on 06/18/2023 Recommended MAD device Obstructive sleep apnea syndrome 06/01/2011 Overview (07/15/2024): Obstructive sleep apnea (adult) (pediatric); Note: Date Diagnosed: 04/05/2023 9:18 AM (G47.33) Note: Date Diagnosed: 04/05/2023 9:18 AM (G47.33) Hyperlipidemia 10/18/2010 Overview (12/18/2023): Poor tolerability of statin due to myalgias. On fibrate and tolerating well. Last Assessment & Plan: Patient is presently on PK S9 along with Zetia. And has been February. This combination has produced a significant decrease of his LDL cholesterol to 50. Patient's lipids are under excellent medical management at this time. No changes in therapy continue with triple drug therapy for control of lipids. Mixed hyperlipidemia 10/18/2010 Overview (07/15/2024): Poor tolerability of statin due to myalgias. On fibrate and tolerating well. Last Assessment & Plan: Patient is presently on PK S9 along with Zetia. And has been February. This combination has produced a significant decrease of his LDL cholesterol to 50. Patient's lipids are under excellent medical management at this time. No changes in therapy continue with triple drug therapy for control of lipids. Adjustment disorder with mixed anxiety and depre ssed mood 03/29/2010 Renal cyst 01/04/2010 Overview (12/18/2023): Dr. Amezcua / Dr. Amezcua Tear of supraspinatus tendon 01/17/2009 Neoplasm of uncertain behavior of skin Overview (12/18/2023): Dysplastic nevi 10/23 back (mild atypia) 10/21 Back x 2 (mildly) Multiple Nevi romoved from lip, scalp, neck, face, trunk on 09/14/2015 - Dr Terrence Johnson Abnormality of gait 07/04/2007 Allergic rhinitis 05/06/2007 Encounters Date Type Department Care Team Description 11/19/2024 11:00 AM EST Office Visit Adult [facility] [address], [place] [phone] Ronald Desai MD Viral upper respiratory tract infection (Primary Dx); Asthma-COPD overlap syndrome (CMS/HCC) 11/03/2024 Telephone Adult Medicine [facility] [address] [place] [phone] Ronald Desai MD call back 10/27/2024 11:00 AM EST Office Visit Gastroenterology - [place] [address] [place] [phone] Tai Lambert PA Dysphagia, unspecified type (Primary Dx); Gastroesophageal reflux disease with esophagitis without hemorrhage; Globus sensation 10/27/2024 8:00 AM EST Office Visit [facility] [place] [address], [place] [phone] Ronald Desai MD Primary hypertension (Primary Dx); Mixed hyperlipidemia; Chronic obstructive pulmonary disease, unspecified COPD type ([facility]/HCC); Obstructive sleep apnea syndrome; Gastroesophageal reflux disease without esophagitis; Stage 3a chronic kidney disease ([facility]); Lumbar radiculopathy; S/P cervical spinal fusion; Cognitive impairment; Muscle twitching; Screening for prostate cancer; Screening for thyroid disorder; Elevated PSA 10/27/2024 Telephone [facility] [place] [address] [phone] David Beltre DPM Foot Pain 10/22/2024 Telephone Orthopedic [facility] [address] [phone] David Beltre DPM pain after cortisone left foot 10/20/2024 2:30 PM EST Office Visit [facility] [place] [address] [phone] David Beltre DPM Acquired hammer toe of right foot (Primary Dx); Hammer toe of left foot; Plantar fascial fibromatosis; Equinus contracture of ankle; Dermatophytosis of nail; Pain in toe of right foot; Pain in toe of left foot; Difficulty walking 10/16/2024 Telephone Adult Medicine [address] [phone] Ronald Desai MD 09/29/2024 Telephone Gastroenterology [facility] [address] [phone] Tai Lambert PA 09/28/2024 Telephone G[facility]enterology - [place] [address] [facility] [address] [phone] Tia Harley [place] 09/17/2024 Telephone Gastroenterology [facility] [address] [phone] Tai Lambert PA provider call back 09/03/2024 Telephone Adult [address] [phone] Ronald Desai MD restless nerve pain\ (Having severe muscle cramps throughout all body) from Last 3 Months Immunizations Name Administration Dates Next Due H1N1 Inj Preservative Free 09/22/2009 Influenza Quadravalent, MDCK , 0.5ml, preservative free (Flucelvax) 6mo and older 07/28/2020,07/15/2018 Influenza Quadravalent, MDCK , 0.5ml, with preservative (Flucelvax) 6mo and older 07/16/2017 Influenza Quadrivalent, 0.5m l, preservative free (Fluarix; FluLaval; Fluzone) ages 6mo and older (Afluria) 3yo and older 09/12/2016 Influenza trivalent, 0.5mL ( Fluzone High-dose) 65yo and older 07/16/2022,07/07/2021 Influenza trivalent, 0.5mL, preservative free (Fluarix; FluLaval; Fluzone) ages 6mo and older (Afluria) 3 years and older 07/10/2015 Influenza trivalent, with pr eservative (Fluzone; Afluria) 6mo and older 07/28/2020,07/28/2019,09/12/2016,09/28,07/17/2013,08/08/2012,06/21/2011 ,06/28/2010,09/22/2009 Cryptmint SARS-CoV-2 COVID-19, mRNA, LNP-S, preservative free 11/04/2021 Pneumococcal conjugate 13 va lent (Prevnar 13, PCV13) 2mo and older 08/17/2022 Pneumococcal polysaccharide 23 valent (Pneumovax 23) 2yo and older 07/15/2018 Td Tetanus diptheria (Tdvax) 7yo and older 07/16/2017 Tdap Tetanus diptheria acell ular pertussis (Boostrix; Adacel) 7yo and older 05/28/2007 Zoster recombinant (Shingrix ) 19yo and older 05/29/2021,02/24/2021 Surgical History Surgery Date Site/Laterality Comments NECK SURGERY PROCEDURE: HISTORICAL NECK SURGERY; COMMENT: bone spur surgery COLONOSCOPY 10/21/2007 PROCEDURE: HISTORICAL COLONOSCOPY; COMMENT: normal; repeat in ten years MOLE REMOVAL PROCEDURE: HISTORICAL MOLE (REMOVAL OF) SHOULDER SURGERY Left PROCEDURE: HISTORICAL SHOULDER SURGERY NASAL SEPTUM SURGERY PROCEDURE: DE SEPTOPLASTY/SUBMUCOUS RESECJ W/WO CARTILAGE GRF UPPER GASTROINTESTINAL ENDOSCOPY 07/28/2009 PROCEDURE: DE UPPER GI ENDOSCOPY PERFORMED; COMMENT: R/o Laurent's esophagus-biopsy:mild chronic inflammation, mild gastritis-biopsy:gastritis (HPylori+), normal duodenum-biopsy:Nl HERNIA REPAIR PROCEDURE: HISTORICAL HERNIA REPAIR/UMB; COMMENT: dr. mcneil HERNIA REPAIR 10/29/2018 PROCEDURE: REPAIR UMBILICAL HERNIA; COMMENT: Dr. Mcneil Medical History Medical History Date Comments Mental disorder DX:Mental disord er GERD (gastroesophageal reflu x disease) DX:GERD (gastroesophageal re flux disease) COPD (chronic obstructive pu lmonary disease) ([facility]) DX:COPD (chronic obstructive pulmonary disease) ([facility]) Hypertension DX:Hypertension Kidney damage DX:Kidney damage Dementia ([facility]) DX:Dementia ( [facility]) Sleep apnea DX:Sleep apnea Esophageal reflux DX:Esophageal reflux Disorder DX:Disorder Cervicalgia DX:Cervicalgia; COMMENT: s/p Dr. Ellis , bone spur Allergic rhinitis, cause unspecified 05/06/2007 DX:Allergic rhinitis, cause unspecified Nevus, non-neoplastic DX:Nevus, non-neoplastic Esophageal reflux DX:Esophageal reflux Mild chronic obstructive pul monary disease ([facility]) 03/28/2015 DX:Mild chronic obstructive pulmonary disease ([facility]) Abnormality of gait 07/04/2007 DX:Abnormali ty of gait Adjustment disorder with mix ed anxiety and depressed mood 03/29/2010 DX:Adjustment disorder with mixed anxiety and depressed mood CKD (chronic kidney disease) stage 3, GFR 30-59 ml/min ([facility]) 01/06/2012 DX:CKD (chronic kidney dise ase) stage 3, GFR 30-59 ml/min ([facility]) Cognitive disorder 02/07/2011 DX:Cognitive disorder; COMMENT: Seen with Justin Lu 01/2011: Dementia ([facility]) 10/15/2012 DX:Dementia ( [facility]); COMMENT: Seen with Tabitha, now on Aricept Displacement of lumbar inter vertebral disc without myelopathy 08/01/2007 DX:Displacement of lumbar intervertebral disc without myelopathy Dysphagia 01/27/2015 DX:Dysphagia; CO MMENT: Seen and evalauted by Dr. Conde Neoplasm of uncertain behavi or of skin 10/30/2007 DX:Neoplasm of uncertain beh avior of skin; COMMENT: Dysplastic nevi 10/23 back (mild atypia) 10/21 Back x 2 (mildly) GERD (gastroesophageal reflu x disease) 05/28/2007 DX:GERD (gastroesophageal re flux disease) Hyperlipidemia 10/18/2010 DX:Hyperlipidemi a Lung nodule seen on imaging study 04/18/2015 DX:Lung nodule seen on imaging study; COMMENT: Chest xray March 2015, repeat in 3 mo recommended Pain in joint, shoulder region 01/23/2008 D X:Pain in joint, shoulder region Renal cyst 01/04/2010 DX:Renal cyst; C OMMENT: Need repeat in 06/2010 Pain in limb 07/04/2007 DX:Pain in limb Sleep apnea 06/01/2011 DX:Sleep apnea Tear of supraspinatus tendon 01/17/2009 DX: Tear of supraspinatus tendon Thoracic or lumbosacral neur itis or radiculitis, unspecified 07/04/2007 DX:Thoracic or lumbosacral n euritis or radiculitis, unspecified Colon cancer screening 04/08/2018 DX:Colon cancer screening; COMMENT: 04/08/2018: Inability to tolerate bowel preparation. Change to stool testing/FIT. Hepatomegaly DX:Hepatomegaly Asthma DX:Asthma Primary hypertension 06/26/2022 DX:Primary hypertension Blood in stool DX:Blood in stoo l Change in bowel habits DX:Change in bowel habits Epigastric pain DX:Epigastric pa in Muscle cramps DX:Muscle cramps Fatty liver DX:Fatty liver Dysphagia DX:Dysphagia Sore throat DX:Sore throat Family History Medical History Relation Name Comments No Known Problems Aunt No Known Problems Brother Glaucoma Father No Known Problems Maternal Grandfather No Known Problems Maternal Grandmother Lung cancer Mother No Known Problems Other No Known Problems Paternal Grandfather No Known Problems Paternal Grandmother Breast cancer Sister 40s, uni No Known Problems Uncle Blindness Neg Hx Cataracts Neg Hx Macular degeneration Neg Hx Strabismus Neg Hx Relation Name Status Comments Aunt Brother Father Alive unknown Maternal Grandfather Maternal Grandmother Mother Other Paternal Grandfather Paternal Grandmother Sister Uncle Social History Tobacco Use Types Packs/Day Years Used Date Smoking Tobacco: Never Smokeless Tobacco: Never Tobacco Cessation:Counseling Given: Not Answered Alcohol Use Standard Drinks/Week Comments No 0 (1 standard drink = 0.6 oz pur e alcohol) Sex and Gender Information Value Date Recorded Sex Assigned at Not on file Legal Sex Male 9:16 PM EST Gender Identity Not on file Sexual Orientation Not on file Obstetrics History Last Filed Vital Signs Vital Sign Reading Time Taken Comments Blood Pressure 147/86 11/19/2024 10:58 AM EST Pulse 75 11/19/2024 10:58 AM EST Temperature 36.9 ??C (98.4 ??F) 11/19/2024 10:[address] Respiratory Rate 16 11/19/2024 10:58 AM EST Oxygen Saturation 98% 10/27/2024 10:25 AM EST Inhaled Oxygen Concentration - - Weight 106 kg (234 lb) 11/19/2024 10:58 AM EST Height 188 cm (6' 2 ) 11/19/2024 10:58 AM EST Body Mass Index 30.04 11/19/2024 10:58 AM EST Plan of Treatment Upcoming Encounters Date Type Department Care Team (Late st Contact Info) Description 12/08/2024 9:15 AM EST Office Visit Orthopedic Surgery [facility] [address] [phone] David Beltre, DPM [address] [address] 12/16/2024 2:00 PM EST Office Visit Nephrology [address] [phone] Marcelo Roach MD 100 [facility] 200 [place] [address] 12/18/2024 8:50 AM EST Office Visit Pulmonolgy [facility] 175 [facility] 200 [place] [phone] Suzie Bates, RAMAN 175 [facility] 200 [place] [address] 12/22/2024 7:45 AM EDT Appointment [facility] Xray [address] [place] [phone] 05/11/2025 3:00 PM EDT Office Visit Nephrology - [facility] 305 [facility] [place] [phone] Marcelo Roach MD [address] [place] [address] 05/27/2025 9:00 AM EDT Office Visit Adult Medicine [facility] 444 [place] [address] Magui Pang PA 444 [place] [address] Health Maintenance Due Date Last Done Comments Hepatitis A Vaccines (1 of 2 - Risk 2-dose series) 1974 Hepatitis B Vaccines (1 of 3 - Risk 3-dose series) 2015 RSV Immunization Patients 60+ Years Old (1 - Risk 60-74 years 1-dose series) 2015 Colorectal Cancer Screening: Stool Based Tests (FOBT/FIT) 09/22/2022 Depression Screening 09/22/2022 Falls Risk Assessment 09/22/2022 Social Influencers of Health Screening 09/22/2022 Pneumococcal Vaccine: 50+ Years (3 of 3 - PPSV23, PCV20 or PCV21) 07/15/2023 08/17/2022, 07/15/2018 COVID-19 Vaccine ( season) 2024 10/28/2023, 08/24/2022, 11/04/2021, Additional history exists Hypertension/CHF/CAD Annual BMP Blood Test 10/27/2025 10/27/2024, 04/30/2024, 04/30/2024 DTaP,Tdap,and Td Vaccines (3 - Td or Tdap) 07/16/2027 07/16/2017, 05/28/2007 Cholesterol Screening (Lipid Panel) 10/27/2029 10/27/2024, 04/30/2024, 04/30/2024 Hepatitis C Screening Completed 06/09/2007 Zoster Vaccines Completed 05/29/2021, 02/24/2021 Colorectal Cancer Screening: Colonoscopy Discontinued 04/03/2024 Colorectal Cancer Screening: FIT-DNA (Cologuard) Discontinued 04/03/2024, 03/30/2024 Influenza Vaccine Completed 08/12/2024, , 07/07/2021, Additional history exists HIB Vaccines Aged Out No longer eligi ble based on patient's age to complete this topic HPV Vaccines Aged Out No longer eligi ble based on patient's age to complete this topic IPV Vaccines Aged Out No longer eligi ble based on patient's age to complete this topic MMR Vaccines Aged Out No longer eligi ble based on patient's age to complete this topic Meningococcal ACWY Vaccine Aged Out N o longer eligible based on patient's age to complete this topic Meningococcal B Vacine Aged Out No lo nger eligible based on patient's age to complete this topic RSV Immunization Patients Under 20 months Aged Out No longer eligible based on patient's age to complete this topic Varicella Vaccines Aged Out No longer eligible based on patient's age to complete this topic Procedures Procedure Name Priority Date/Time Associated Diagnosis Comments [id number], RSV, FLU A AND B QUALITATIVE RT-PCR, LOCAL REFERENCE LAB Routine 11/19/2024 11:31 AM EST Viral upper respiratory tract infection VITAMIN B12 Routine 10/27/2024 9:11 AM EST Primary hypertension Mixed hyperlipidemia Chronic obstructive pulmonary disease, unspecified COPD type (CMS/HCC) Obstructive sleep apnea syndrome Gastroesophageal reflux disease without esophagitis Stage 3a chronic kidney disease (CMS/HCC) Lumbar radiculopathy S/P cervical spinal fusion Cognitive impairment Muscle twitching LIPID PANEL WITH REFLEX TO DIRECT LDL Routine 10/27/2024 9:11 AM EST Primary hypertension Mixed hyperlipidemia Chronic obstructive pulmonary disease, unspecified COPD type (CMS/HCC) Obstructive sleep apnea syndrome Gastroesophageal reflux disease without esophagitis Stage 3a chronic kidney disease (CMS/HCC) Lumbar radiculopathy S/P cervical spinal fusion Cognitive impairment Muscle twitching PROSTATE SPECIFIC ANTIGEN SCREEN Routine 10/27/2024 9:11 AM EST Screening for prostate cancer MAGNESIUM Routine 10/27/2024 9:11 AM EST Primary hypertension Mixed hyperlipidemia Chronic obstructive pulmonary disease, unspecified COPD type (CMS/HCC) Obstructive sleep apnea syndrome Gastroesophageal reflux disease without esophagitis Stage 3a chronic kidney disease (CMS/HCC) Lumbar radiculopathy S/P cervical spinal fusion Cognitive impairment Muscle twitching COMPREHENSIVE METABOLIC PANEL Routine 10/27/2024 9:11 AM EST Primary hypertension Mixed hyperlipidemia Chronic obstructive pulmonary disease, unspecified COPD type (CMS/HCC) Obstructive sleep apnea syndrome Gastroesophageal reflux disease without esophagitis Stage 3a chronic kidney disease (CMS/HCC) Lumbar radiculopathy S/P cervical spinal fusion Cognitive impairment Muscle twitching HEMOGLOBIN A1C Routine 10/27/2024 9:11 AM EST Primary hypertension Mixed hyperlipidemia Chronic obstructive pulmonary disease, unspecified COPD type (CMS/HCC) Obstructive sleep apnea syndrome Gastroesophageal reflux disease without esophagitis Stage 3a chronic kidney disease (CMS/HCC) Lumbar radiculopathy S/P cervical spinal fusion Cognitive impairment Muscle twitching THYROID STIMULATING HORMONE WITH REFLEX TO FREE T4 AND FREE T3 Routine 10/27/2024 9:11 AM EST Screening for thyroid disorder INJECTION TENDON OR LIGAMENT Routine 10/20/2024 2:30 PM EST Plantar fascial fibromatosis INJECTION TENDON OR LIGAMENT Routine 10/20/2024 2:30 PM EST Plantar fascial fibromatosis COLONOSCOPY Routine 04/03/2024 HEPATITIS C SCREENING Routine 06/09/2007 from Last 3 Months or Most Recently Relevant to Health Maintenance Results * [id number], RSV, Influenza A and B qualitative RT-PCR (11/19/2024 11:31 AM EST) Pathologist [facility] SARS COV-2 Not Detected Not Detected LAB MOLECULAR DIAGNOSTICS METHOD 11/19/2024 11:34 PM EST [facility] Comment: Disclaimer: The manner in which this information is used to guide patient care is the responsibility of the healthcare provider. Testing was performed using the Amvona Alinity m SARS-CoV-2 test. This test has been authorized by FDA under an Emergency Use Authorization (EUA). This test is only authorized for the duration of time the declaration that circumstances exist justifying the authorization of the emergency use of in vitro diagnostic tests for detection of SARS-CoV-2 virus and/or diagnosis of COVID-19 infection under section 564(b)(1) of the Act, 21 U.S.C. 360bbb- 3(b)(1), unless the authorization is terminated or revoked sooner. Fact sheet for Healthcare Providers can be found at: https://www.fda.gov/media/998610/download Fact sheet for Patients can be found at: https://www.fda.gov/media/877489/download Influenza A PCR Not Detected Not Detected LAB MOLECULAR DIAGNOSTICS METHOD 11/19/2024 11:34 PM [facility] Influenza B PCR Not Detected Not Detected LAB MOLECULAR DIAGNOSTICS METHOD 11/19/2024 11:34 PM [facility] RSV PCR Not Detected Not Detected LAB MOLECULAR DIAGNOSTICS METHOD 11/19/2024 11:34 PM [facility] Swab Nasopharyngeal structure / Unknown Non-blood Collection / Unknown 11/19/2024 11:31 AM EST 11/19/2024 11:31 AM EST us Ronald Desai MD LAB MICROBIOLOGY - GENERAL ORDERABLES Final Result [facility] [address] [place] [address], * (ABNORMAL) Prostate specific antigen screen (10/27/2024 9:11 AM EST) PSA 4.97(H) 0.00 - 4.00 ng/mL LAB CHEMISTRY METHOD 10/27/2024 6:18 PM EST [facility] Blood Venous blood specimen / Unknown Venipuncture / Unknown 10/27/2024 9:11 AM EST 10/27/2024 9:11 AM EST Narrative [facility] - 10/27/2024 6:18 PM EST The Siemens Advia Centaur Chemiluminescent Immunoassay is used. Results obtained with different assay methods or kits cannot be used interchangeably. Results cannot be interpreted as absolute evidence of the presence or absence of malignant disease. us Ronald Desai MD LAB BLOOD ORDERABLES Final Result Performing Organization Address [facility]/ZIP Co de Phone Number [facility] [address] [place] [address], [place] [phone] * Thyroid stimulating hormone with reflex to free t4 and free t3 (10/27/2024 9:11 AM EST) TSH 2.60 0.40 - 4.00 mcIU/mL LAB CHEMISTRY METHOD 10/27/2024 2:58 PM EST [facility] Blood Venous blood specimen / Unknown Venipuncture / Unknown 10/27/2024 9:11 AM EST 10/27/2024 9:11 AM EST us Ronald Desai MD LAB BLOOD ORDERABLES Final Result [facility] [address] [place] [address], [place] [phone] * (ABNORMAL) Lipid panel with reflex to direct LDL (10/27/2024 9:11 AM EST) Cholesterol 254(H) 0 - 200 mg/dL LAB CHEMISTRY METHOD 10/27/2024 3:28 PM EST [facility] Triglycerides 161(H) 0 - 150 mg/dL [...] 9:11 AM EST 10/27/2024 9:11 AM EST Ronald Desai MD LAB BLOOD ORDERABLES Final Result [facility] [address] [place] [address], [place] [phone] * Magnesium (10/27/2024 9:11 AM EST) Magnesium 2.0 1.9 - 2.6 mg/dL LAB CHEMISTRY METHOD 10/27/2024 2:56 PM [facility] Blood Venous blood specimen / Unknown Venipuncture / Unknown 10/27/2024 9:11 AM EST 10/27/2024 9:11 AM EST us Ronald Desai MD LAB BLOOD ORDERABLES Final Result [facility] [address] [place] [address], [place] [phone] * Hemoglobin A1c (10/27/2024 9:11 AM EST) [facility] Hemoglobin A1C 5.5 <6.5 % LAB CHEMISTRY METHOD 10/27/2024 9:24 PM EST [facility] Mean Bld Glu Estim. 111 mg/dL LAB CHEMISTRY METHOD 10/27/2024 9:24 PM EST [facility] Blood Venous blood specimen / Unknown Venipuncture / Unknown 10/27/2024 9:11 AM EST 10/27/2024 9:11 AM EST us Ronald Desai MD LAB BLOOD ORDERABLES Final Result Performing Organization Address City/[facility]/ZIP Co de Phone Number [facility] [address] [place] [address], [place] [phone] * Vitamin B12 (10/27/2024 9:11 AM EST) [facility] Vitamin B-12 434 250 - 900 pcg/mL LAB CHEMISTRY METHOD 10/27/2024 3:28 PM EST [facility] Blood Venous blood specimen / Unknown Venipuncture / Unknown 10/27/2024 9:11 AM EST 10/27/2024 9:11 AM EST us Ronald Desai MD LAB BLOOD ORDERABLES Final Result [facility] [address] [place] [address], [place] [phone] * (ABNORMAL) Comprehensive metabolic panel (10/27/2024 9:11 AM EST) [facility] Sodium 137 133 - 145 mmol/L LAB CHEMISTRY METHOD 10/27/2024 3:28 PM [facility] Potassium 4.4 3.5 - 5.5 mmol/L LAB CHEMISTRY METHOD 10/27/2024 3:28 PM EST [facility] Chloride 106 96 - 110 mmol/L [...] g/dL LAB CHEMISTRY METHOD 10/27/2024 3:28 PM EST [facility] Total Bilirubin 0.5 0.0 - 1.4 mg/dL LAB CHEMISTRY METHOD 10/27/2024 3:28 PM EST [facility] Blood Venous blood specimen / Unknown Venipuncture / Unknown 10/27/2024 9:11 AM EST 10/27/2024 9:11 AM EST Ronald Desai MD LAB BLOOD ORDERABLES Final Result [facility] [address] [place] [address], * Injection tendon or ligament (10/20/2024 2:30 PM EST) Narrative David Beltre DPM - 10/20/2024 2:30 PM EST David Beltre DPM ? 10/20/2024 ??5:57 PM Injection tendon or ligament Indications: pain Details: 25 G needle Medications: 0.5 mL lidocaine (PF) 1 %; 20 mg triamcinolone acetonide 40 mg/mL Informed Consent: ??Site: ??Foot ligament tendon David Beltre DPM IN CLINIC/BEDSIDE ORDERAB LES Final Result * Injection tendon or ligament (10/20/2024 2:30 PM EST) Narrative David Beltre DPM - 10/20/2024 2:30 PM EST David Beltre DPM ? 10/20/2024 ??5:57 PM Injection tendon or ligament Indications: pain Details: 25 G needle Medications: 0.5 mL lidocaine (PF) 1 %; 20 mg triamcinolone acetonide 40 mg/mL Informed Consent: ??Site: ??Foot ligament tendon David Beltre DPM IN CLINIC/BEDSIDE ORDERAB LES Final Result * Colonoscopy (04/03/2024) Colonoscopy no interpretation , abstracted Anatomical Region Laterality Modality Other Historical Provider HEALTH MAINTENANCE Final Result * Hepatitis C Screening (06/09/2007) Hepatitis C Screening abstracted Historical Provider HEALTH MAINTENANCE Final Result from Last 3 Months or Most Recently Relevant to Health Maintenance Insurance [facility] Advance Directives Documents on File Type Date Recorded Patient Director Of Sales Marketing Expl anation Health Care Decision (hx) 09/03/2019 AD SERNA DIRECTIVE Health Care Decision (hx) 09/03/2019 AD SERNA DIRECTIVE Health Care Decision (hx) 09/03/2019 AD SERNA DIRECTIVE Health Care Decision (hx) 09/03/2019 AD SERNA DIRECTIVE Health Care Decision (hx) 09/03/2019 AD SERNA DIRECTIVE Health Care Decision (hx) 09/03/2019 AD SERNA DIRECTIVE Health Care Decision (hx) 09/03/2019 AD SERNA DIRECTIVE Health Care Decision (hx) 09/03/2019 AD SERNA DIRECTIVE Health Care Decision (hx) 09/03/2019 AD SERNA DIRECTIVE Health Care Decision (hx) 09/03/2019 AD SERNA DIRECTIVE Health Care Decision (hx) 09/03/2019 AD SERNA DIRECTIVE Health Care Decision (hx) 09/03/2019 AD SERNA DIRECTIVE Health Care Decision (hx) 09/03/2019 AD SERNA DIRECTIVE Health Care Decision (hx) 09/03/2019 AD SERNA DIRECTIVE Health Care Decision (hx) 09/03/2019 AD SERNA DIRECTIVE Health Care Decision (hx) 09/03/2019 AD SERNA DIRECTIVE Health Care Decision (hx) 09/03/2019 AD SERNA DIRECTIVE Health Care Decision (hx) 09/03/2019 AD SERNA DIRECTIVE Health Care Decision (hx) 09/03/2019 AD SERNA DIRECTIVE Health Care Decision (hx) 09/03/2019 AD SERNA DIRECTIVE Care Teams Ged Preparation Teacher Relationship Specialty Start Date End Date Ronald Desai MD [address] [place] [address] PCP - General Internal Medicine 07/16/22
--- OUTSIDE RECORDS SUMMARY | 2024-11-27 11:47 | XMS_ITS | Clinical Summary ---
Author Organization [facility] Address [address] [place] [address] Care Team Providers Care Wine Specialist Name Role Phone Ronald Desai MD Primary Care Provider [phone] Allergies No known active allergies Medications Medication Sig Dispensed Refills Start Date End Date Status methylPREDNISolone (MEDROL DOSEPAK) 4 MG tabletIndications:P ain follow package directions 21 tablet 07/18/2023 Active Active Problems No known active problems Social History Tobacco Use Types Packs/Day Years Used Date Smoking Tobacco: Never Assessed Sex and Gender Information Value Date Recorded Sex Assigned at Choose not to disclose 2:25 PM EDT Gender Identity Choose not to disclose 2:25 PM EDT Sexual Orientation Choose not to disclose 2022 2:25 PM EDT Plan of Treatment Health Maintenance Due Date Last Done Comments Hepatitis C Virus Screening 1955 DTaP/Tdap/Td Vaccines (1 - Tdap) 1974 Colonoscopy 2000 Pneumococcal Vaccines 50+ (1 of 1 - PCV) 2005 Zoster (Shingles) Vaccine (1 of 2) 2005 DXA Bone Density (Females,Ages 65 and older) 2020 Influenza Vaccine 05/14/2024 07/28/2020, , 07/28/2019, Additional history exists COVID-19 Vaccine ( season) 2024 11/04/2021, 10/03/2021, 01/09/2021, Additional history exists RSV Vaccine 60 years and older and Patients (1 - 1-dose 75+ series) 2030 Hepatitis B Vaccines Aged Out No long er eligible based on patient's age to complete this topic Care Teams Wine Specialist Relationship Specialty Start Date End Date Ronald Desai MD [address] [place] [address] PCP - General Medicine Hospitalist 07/18/23
--- OUTSIDE RECORDS SUMMARY | 2024-11-27 11:47 | XMS_ITS | Encounter Summary ---
Author Organization [facility] Address [address] [place] [address] Care Team Providers Care Hair Spring Winder Name Role Phone Ronald Desai MD Primary Care Provider Encounter Details Date Type Department Care Team (Late st Contact Info) Description 07/19/2023 Scanned Document [facility] [address] [phone] Babar Cage MD [address] [place] [address] Social History Tobacco Use Types Packs/Day Years Used Date Smoking Tobacco: Never Assessed Sex and Gender Information Value Date Recorded Sex Assigned at Choose not to disclose 2:25 PM EDT Gender Identity Choose not to disclose 2:25 PM EDT Sexual Orientation Choose not to disclose 2022 2:25 PM EDT documented as of this encounter Plan of Treatment Not on file documented as of this encounter Visit Diagnoses Not on filedocumented in this encounter Care Teams Hair Spring Winder Relationship Specialty Start Date End Date Ronald Desai MD [address] [place] [address] PCP - General Medicine Hospitalist 07/18/23 documented as of this encounter
--- OUTSIDE RECORDS SUMMARY | 2024-11-27 11:48 | XMS_ITS | Encounter Summary ---
Author Organization [facility] Address [address] [place] [address] Care Team Providers Care Journeyman Mechanic Name Role Phone Ronald Desai MD Primary Care Provider [phone] Reason for Visit * Reason Onset Date Comments Foot Pain 10/27/2024 Encounter Details Date Type Department Care Team (Late st Contact Info) Description 10/27/2024 Telephone Orthopedic Surgery - [place] [address] [phone] David Beltre, DPM [address] [address] Foot Pain Social History Tobacco Use Types Packs/Day Years [...] as of this encounter Progress Notes * Maria Luz Allen MA - 10/29/2024 10:41 AM EST Called patient he can ice elevate and take tylenol or advil to help with discomfort.he will follow up on 12/08/[address] Beltre. * Janine Rodriguez MA - 10/27/2024 12:16 PM EST Call placed to pt * Michelle Nuñez - 10/27/2024 11:06 AM EST Pt came into office today, states both his legs are bothering him when he is laying down. Pt stateshis nerves are making his feet jump when he is laying down. He says it is worse in his left foot. Pt states he is experiencing heel pain in both feet but his left foot is very severe and he can barely walk on it at all. Pt states he just went to see his PCP today and gave him a cortisone shot in both feet but he said it is not helping. Please advise. documented in this encounter Plan of Treatment Upcoming Encounters Date Type Department Care Team (Late st Contact Info) Description 12/08/2024 9:15 AM EST Office Visit Orthopedic Surgery [place] [address] [phone] David Beltre DPM [address] [address] 12/16/2024 2:00 PM EST Office Visit Nephrology [address] [phone] Marcelo Roach MD [address] [phone] 12/18/2024 8:50 AM EST Office Visit Pulmonolgy [facility] [address] [phone] Suzie Bates NP [address] [address] 12/22/2024 7:45 AM EDT Appointment [facility] Xray [address] [place] [phone] 05/11/2025 3:00 PM EDT Office Visit [facility] [place] [address] [place] [address] Marcelo Roach MD [address] [place] [address] 05/27/2025 9:00 AM EDT Office Visit Adult Medicine [address] [phone] Magui Pang PA [address] [place] [address] documented as of this encounter Visit Diagnoses Not on filedocumented in this encounter Care Teams Journeyman Mechanic Relationship Specialty Start Date End Date Ronald Desai MD [address] [place] [address] PCP - General Internal Medicine 07/16/22 documented as of this encounter
--- OUTSIDE RECORDS SUMMARY | 2024-11-27 11:48 | XMS_ITS | Encounter Summary ---
Author Organization [facility] Address [address] [place] [address] Care Team Providers Care Home Theater Expert Name Role Phone Ronald Desai MD Primary Care Provider [phone] Reason for Visit * Reason Onset Date Comments call back 11/03/2024 Encounter Details Date Type Department Care Team (Late st Contact Info) Description 11/03/2024 Telephone Adult Medicine [address] [phone] Ronald Desai MD [address] [place] [address] call back Social History Tobacco Use Types Packs/Day Years [...] as of this encounter Progress Notes * Anabel Fleming MA - 11/04/2024 2:50 PM EST Pt is aware of message below. * Coral Trna - 11/03/2024 9:53 AM EST Patient would like call back on results of lab work done on 10/27/24 please call back. documented in this encounter Plan of Treatment Upcoming Encounters Date Type Department Care Team (Late st Contact Info) Description 12/08/2024 9:15 AM EST Office Visit Orthopedic Surgery [facility] [address] [phone] David Beltre, DPM [address] [address] 12/16/2024 2:00 PM EST Office Visit Nephrology [address] [phone] Marcelo Roach MD [address] [phone] 12/18/2024 8:50 AM EST Office Visit Pulmonolgy [facility] [address] [phone] Suzie Bates NP [address] [address] 12/22/2024 7:45 AM EDT Appointment [facility] Xray [address] [place] [phone] 05/11/2025 3:00 PM EDT Office Visit Nephrology - [address] [phone] Marcelo Roach MD 100 [facility] [address] [phone] 05/27/2025 9:00 AM EDT Office Visit Adult Medicine [address] [phone] Magui Pang PA [address] [place] [address] documented as of this encounter Visit Diagnoses Not on filedocumented in this encounter Additional Health Concerns Infection Onset Date Last Indicated Resolved Time Respiratory Rule-Out 11/19/2024 11/19/2024 025 11:34 PM EST COVID-19 Rule-Out 11/19/2024 11/19/2024 11/19/2024 11:34 PM EST documented as of this encounter Care Teams Home Theater Expert Relationship Specialty Start Date End Date Ronald Desai MD [address] [place] [address] PCP - General Internal Medicine 07/16/22 documented as of this encounter
--- OUTSIDE RECORDS SUMMARY | 2024-11-27 11:48 | XMS_ITS | Encounter Summary ---
Author Organization [facility] Address [address] [place] [address] Care Team Providers Care Media Production Support Manager Name Role Phone Ronald Desai MD Primary Care Provider [phone] Encounter Details Date Type Department Care Team (Late st Contact Info) Description 07/19/2023 Scanned Document [facility] [address] [phone] Babar Cage MD [address] [place] [address] Social History Tobacco Use Types Packs/Day Years [...] on filedocumented in this encounter Care Teams Media Production Support Manager Relationship Specialty Start Date End Date Ronald Desai MD [address] [place] [address] PCP - General Medicine Hospitalist 07/18/23 documented as of this encounter
--- OUTSIDE RECORDS SUMMARY | 2024-11-27 11:48 | XMS_ITS | Clinical Summary ---
Author Organization [facility] Facility Address [address] [address] Care Team Providers Care Lease Buyer Name Role Phone Unavailable Primary Care Provider Unavailabl e Social History Tobacco Use Types Packs/Day Years Used Date Smoking Tobacco: Never Assessed Sex and Gender Information Value Date Recorded Sex Assigned at Not on file Legal Sex Male 5:21 PM EST Gender Identity Not on file Sexual Orientation Not on file Plan of Treatment Health Maintenance Due Date Last Done Comments Colorectal Cancer Screening: Annual FOBT 2004 Colorectal Cancer Screening: Colonoscopy 2004 Colorectal Cancer Screening: Sigmoidoscopy 2004 Pneumococcal Vaccine: 65+ Ye ars (1 of 1 - PCV) 2020 Influenza Vaccine (#1) 2024 Hepatitis B Vaccine Aged Out No longe r eligible based on patient's age to complete this topic
--- OUTSIDE RECORDS SUMMARY | 2024-11-27 11:48 | XMS_ITS | Encounter Summary ---
Author Organization [facility] Address [address] [place] [address] Care Team Providers Care Brilliandeer Looper Name Role Phone Ronald Desai MD Primary Care Provider [phone]- [phone] Reason for Visit * Reason Comments Cough Encounter Details Date Type Department Care Team (Late st Contact Info) Description 11/19/2024 11:00 AM EST Office Visit Adult Medicine [address] [phone] Ronald Desai MD [address] [place] [id number] Viral upper respiratory tract infection (Primary Dx); Asthma-COPD overlap syndrome (CMS/HCC) Social History Tobacco Use Types Packs/Day Years [...] 16 11/19/2024 10:58 AM EST Oxygen Saturation - - Inhaled Oxygen Concentration - - Weight 106 kg (234 lb) 11/19/2024 10:58 AM EST Height 188 cm (6' 2 ) 11/19/2024 10:58 AM EST Body Mass Index 30.04 11/19/2024 10:58 AM EST documented in this encounter Progress Notes * Ronald Desai MD - 11/19/2024 11:00 AM EST Please inform the patient that nasal swab is negative for flu, RSV and COVID-19. ??No further action is needed * Ronald Desai MD - 11/19/2024 11:00 AM EST Take Zyrtec 10 mg at night and Tylenol 3-4 times a day * Ravindra Barbosa MA - 11/19/2024 11:00 AM EST cough * Ronald Desai MD - 11/19/2024 11:00 AM EST CHIEF COMPLAINT: Cough IDENTIFIER: Pete Ceballos is a 68 y.o. [...] and obesity, who is seen here for sick visit. Patient is sick for last 4 days. He has history of nasal stuffiness, dry cough, body aches, headache and low-grade fever. No sore throat. He denies any wheezing. ROS: GENERAL: Low-grade fever and bodyaches HEENT: Nasal stuffiness NECK: No lumps RESPIRATORY: Dry cough CARDIOVASCULAR: No chest pain, or palpitations GI: No abdominal pain, hematochezia, melena : No dysuria, oliguria, polyuria, hematuria, flank pain MUSCULOSKELETAL: No joint pain or swelling, back pain, or muscle pain. SKIN: No lesions, rash or itching NEURO: [...] study 04/18/2015 Mild chronic obstructive pulmonary disease ([facility]) 03/28/2015 Chronic obstructive pulmonary disease ([facility]) 03/28/2015 Dysphagia 01/27/2015 Dementia ([facility]) 10/15/2012 Stage 3 chronic kidney disease ([facility]) 01/06/2012 Sleep apnea 06/01/2011 Obstructive sleep apnea [...] MOLE (REMOVAL OF) NASAL SEPTUM SURGERY PROCEDURE: DE SEPTOPLASTY/SUBMUCOUS RESECJ W/WO CARTILAGE GRF NECK SURGERY PROCEDURE: HISTORICAL NECK SURGERY; COMMENT: bone spur surgery SHOULDER SURGERY Left PROCEDURE: HISTORICAL SHOULDER SURGERY UPPER GASTROINTESTINAL ENDOSCOPY 07/28/2009 PROCEDURE: DE UPPER [...] No partnership data on file MEDICATIONS DISCONTINUED/REORDERED: There are no discontinued medications. ACTIVE MEDICATIONS: Outpatient Medications Marked as Taking for the 11/19/24 encounter (Office Visit) with Ronald Desai MD Medication Sig Dispense Refill albuterol HFA [...] 1 capsule (10 mg total) by mouth. ezetimibe (ZETIA) 10 mg tablet Take 1 tablet (10 mg total) by mouth 1 (one) time each day. 90 tablet 1 fenofibrate (TRICOR) 145 mg tablet Take 1 tablet (145 mg total) by mouth 1 (one) time each day. 90 each 1 fluticasone propion-salmeteroL (ADVAIR DISKUS) 500-50 mcg/dose diskus inhaler Inhale 1 puff by mouth 2 (two) times a day. Rinse mouth with water after use to reduce aftertaste and incidence of candidiasis. Do not swallow. fluticasone propionate (FLONASE) 50 mcg/actuation nasal spray [...] 1 (one) time each day if needed. lidocaine (LIDODERM) 5 % patch Place 1 patch on the skin 1 (one) time each day. Apply for no more than 12 hours in any 24 hour period. - losartan (COZAAR) 25 mg tablet Take 1 [...] Take 15 mL by mouth. pantoprazole (PROTONIX) 40 mg EC tablet Take 1 tablet (40 mg total) by mouth 2 (two) times a day. Take on empty stomach, wait 30 mins and then eat to activate the medication- before breakfast and supper 60 each 11 sodium chloride (OCEAN) 0.65 % nasal spray Administer 1 spray into each nostril 2 (two) times a dayif needed for congestion. needed for Other (nasal dryness or congestion, with use of CPAP valACYclovir (VALTREX) 500 mg tablet Take 1 tablet (500 mg total) by mouth 1 (one) time each day. ALLERGIES: Allergies Allergen Reactions House Dust Mite Other Reaction(s): Runny Nose/Rhinitis Pravastatin Other Reaction(s): UNKNOWN PHYSICAL EXAM: Visit Vitals BP (!) 147/86 (BP Location: Left arm, Patient Position: Sitting, BP Cuff Size: Adult) Pulse 75 Temp 36.9 ??C (98.4 ??F) (Oral) Resp 16 Ht 1.88 m (74 ) Wt 106 kg (234 lb) BMI 30.04 kg/m?? Smoking Status Never BSA 2.32 m?? Physical Exam APPEARANCE: Alert and in no acute distress EYES: PERRLA, conjunctiva and sclera normal. EARS: External ears normal. NOSE/SINUS: Mild nasal congestion. MOUTH/THROAT: no erythema or exudates HEART: RRR with normal S1 and S2, no murmurs LUNG: No obvious wheezing ABDOMEN: Bowel sounds normoactive, soft, non-tender and no palpable masses. BACK: No pain to palpation EXTREMITIES: No edema NEURO: Awake, alert and oriented x 3. No focal neurological deficits SKIN: No rashes LABS: @CBC@ Lab Results Component Value Date NA 137 10/27/2024 K 4.4 10/27/2024 CL 106 10/27/2024 CO2 26 10/27/2024 GLUCOSE 86 10/27/2024 BUN 24 10/27/2024 CREATININE 1.63 (H) 10/27/2024 CALCIUM 8.5 10/27/2024 PROT 7.4 10/27/2024 ALBUMIN 3.9 10/27/2024 BILITOT 0.5 10/27/2024 AST 15 10/27/2024 ALT 43 10/27/2024 MG 2.0 10/27/2024 ALKPHOS 116 10/27/2024 EGFR 46 (L) 10/27/2024 Lab Results Component Value Date HGBA1C 5.5 10/27/2024 Lab Results Component Value Date TSH 2.60 10/27/2024 Lab Results Component Value Date CHOL 254 (H) 10/27/2024 TRIG 161 (H) 10/27/2024 HDL 59 10/27/2024 LDL 18 04/30/2024 VLDL 32.2 10/27/2024 NONHDLC 195 (H) 10/27/2024 CHOLHDL 4.3 10/27/2024 IMAGING: No recent imaging IMPRESSION: 1. Viral upper respiratory tract infection 2. Asthma-COPD overlap syndrome (CMS/HCC) PLAN: 1. Patient has URI symptoms for the last 4 days. He has a low-grade fever, nasal congestion, headache, body aches and dry cough. No obvious wheezing. Nasal swab obtained to check for COVID-19, flu, RSV. Patient is recommended to use Zyrtec/Claritin at night, Tylenol as needed, dtlr-fqh-zjgmund cough medication and albuterol MDI 2 puff every 4 hourly as needed for wheezing. No antibiotics for now. 2. Follow-up exam as needed All questions and concerns were addressed. Peterosaline Ceballos verbalizes understanding and agrees with thistreatment plan. Patient was reminded to call or return to the office if any new or existing problems arise. Orders Placed This Encounter Procedures [id number], RSV, Influenza A and B qualitative RT-PCR None Ronald Desai MD on 11/19/2024 at 12:11 PM EST Today's documentation was made using voice recognition software.This note may contain grammatical errors secondary to this software. documented in this encounter Plan of Treatment Upcoming Encounters Date Type Department Care Team (Late st Contact Info) Description 12/08/2024 9:15 AM EST Office Visit Orthopedic Surgery - [place] [address] [phone] David Beltre, DPM [address] [address] 12/16/2024 2:00 PM EST Office Visit Nephrology [address] [phone] Marcelo Roach MD [address] [facility] 200 [place] [phone] 12/18/2024 8:50 AM EST Office Visit Pulmonolgy - [place] [facility] [address] [place] [phone] Suzie Bates, RAMAN [address] [facility] 200 [place] [address] 12/22/2024 7:45 AM EDT Appointment [facility] Xray [address] [place] [phone] 05/11/2025 3:00 PM EDT Office Visit Nephrology - [facility] [address] [place] [phone] Marcelo Roach MD [address] [facility] 200 [place] [phone] 05/27/2025 9:00 AM EDT [place] [facility] [address] [place] [phone] Magui Pang PA [address] [place] [address] documented as of this encounter Procedures Procedure Name Priority Date/Time Associated Diagnosis Comments [id number], RSV, FLU A AND B QUALITATIVE RT-PCR, LOCAL REFERENCE LAB Routine 11/19/2024 11:31 AM EST Viral upper respiratory tract infection documented in this encounter Results * [id number], RSV, Influenza A and B qualitative RT-PCR (11/19/2024 11:31 AM EST) SARS COV-2 Not Detected Not Detected LAB MOLECULAR DIAGNOSTICS METHOD 11/19/2024 11:34 PM EST [facility] Comment: Disclaimer: The manner in which this information is used to guide patient care is the responsibility of the healthcare provider. Testing was performed using the Case Alinity m SARS-CoV-2 test. This test has [...] for Healthcare Providers can be found at: https://www.fda.gov/media/242753/download Fact sheet for Patients can be found at: https://www.fda.gov/media/789483/download Influenza A PCR Not Detected Not Detected LAB MOLECULAR DIAGNOSTICS METHOD 11/19/2024 11:34 PM EST [facility] Influenza B PCR Not Detected Not Detected LAB MOLECULAR DIAGNOSTICS METHOD 11/19/2024 11:34 PM [facility] RSV PCR Not Detected Not Detected LAB MOLECULAR DIAGNOSTICS METHOD 11/19/2024 11:34 PM EST [facility] Swab Nasopharyngeal structure / Unknown Non-blood Collection / Unknown 11/19/2024 11:31 AM EST 11/19/2024 11:31 AM EST Ronald Desai MD LAB MICROBIOLOGY - GENERAL ORDERABLES Final Result [facility] [address] [place] [address], documented in this encounter Visit Diagnoses Diagnosis Viral upper respiratory tract infection- Primary Acute upper respiratory infections of unspecified site Asthma-COPD overlap syndrome (CMS/HCC) documented in this encounter Additional Health Concerns Infection Onset Date Last Indicated Resolved Time Respiratory Rule-Out 11/19/2024 11/19/2024 025 11:34 PM EST COVID-19 Rule-Out 11/19/2024 11/19/2024 11/19/2024 11:34 PM EST documented as of this encounter Care Teams Brilliandeer Looper Relationship Specialty Start Date End Date Ronald Desai MD [address] [place] [address] PCP - General Internal Medicine 07/16/22 documented as of this encounter
== END 2024-11-27 13:48 | disposition home or self-care (01) ==
LOC: HO.HOSX 13:47
PROVIDERS: Visit Provider Neurological Surgery
DX: M43.8X2 Other specified deforming dorsopathies, cervical region (principal)
CPT/HCPCS: 72040

== ENCOUNTER 2024-12-18 10:34 | Outpatient (AMB) | payer MEDICARE, SELFPAY ==
--- NOTE | 2024-12-18 11:55 | HO.SPINEOV ---
Intake Visit Reasons: 3 month f/u Xrays done 11/27 Intake Note: Mr. Ceballos is here for a 3 month F/u. Pay Station Collector Required: No Allergies adhesive tape Allergy (Verified 08/28/24 11:52) Itching atorvastatin Allergy (Verified 08/28/24 11:52) Muscle cramps mite-Dermatophagoides farinae, thomas [dust mite - [place]] Allergy (Verified 08/28/24 11:52) Unknown pravastatin Allergy (Verified 08/28/24 11:52) Unknown Assessment & Plan Assessment & Plan (1) Lumbar stenosis with neurogenic claudication: Code(s): M48.062 - Spinal stenosis, lumbar region with neurogenic claudication Category: Medical Plan Mr Ceballos is here in follow up. He is having ongoing neck pain, and Dr. Tapia and I reviewed his x-ray which looks excellent. Obviously this is something he is going to have to live with it this point because most of his neck is fused and it is probably some degree of just lack of mobility and range of motion because of that. His deformity is fix. He has also been complaining about bilateral lower extremity pain with walking and feeling like his legs are going to give out underneath him. We did a previous lumbar decompression on him, but it looks like he still has some residual stenosis at L3-4 which is moderate to severe based on his MRI from [facility] last year. Dr. Tapia would be willing to offer him L3-4 decompression. However, the last time the patient had a lumbar decompression, he ended up staying in the hospital 3 days for spasms and pain and needing a Aguirre catheter. Additionally, the surgery did not help him at all. I told him that while we can fix the lumbar stenosis, there is no way to know if the surgery will give him the kind of relief that he is looking for because of such a bad response that he had last time to it. He is going to think about it and let us know. Total amount of time spent in this visit was 20 minutes in discussion of symptoms, lumbar imaging results and subsequent plan of care Peter Tapia MD,PhD [facility] Coding Level of Care Code Est Pt Level 3 (30885) Diagnoses Lumbar stenosis with neurogenic claudication M48.062
--- OUTSIDE RECORDS SUMMARY | 2024-12-18 11:55 | XMS_ITS | Clinical Summary ---
Author Organization [facility] Facility Address [address] [address] Care Team Providers Care Construction Worker Name Role Phone Unavailable Primary Care Provider [...]
--- OUTSIDE RECORDS SUMMARY | 2024-12-18 11:55 | XMS_ITS | Encounter Summary ---
Author Organization [facility] Address [address] [place] [address] Care Team Providers Care Trustee Of Estate Name Role Phone Ronald Desai MD Primary Care Provider [phone]- [phone] Reason for Visit * Reason Comments Cough Encounter Details Date Type Department Care Team (Late st Contact Info) Description 11/19/2024 11:00 AM EST Office Visit Adult Medicine [address] [phone] Ronald Desai MD [address] [place] [address] Viral upper respiratory tract infection (Primary Dx); [...] study 04/18/2015 Mild chronic obstructive pulmonary disease ([facility]) 03/28/2015 Chronic obstructive pulmonary disease ([facility]) 03/28/2015 Dysphagia 01/27/2015 Dementia ([facility]) 10/15/2012 Stage 3 chronic kidney disease ([facility]) 01/06/2012 Sleep apnea 06/01/2011 Obstructive sleep apnea [...] MOLE (REMOVAL OF) NASAL SEPTUM SURGERY PROCEDURE: [place] SEPTOPLASTY/SUBMUCOUS RESECJ W/WO CARTILAGE GRF NECK SURGERY PROCEDURE: HISTORICAL NECK SURGERY; COMMENT: bone spur surgery SHOULDER SURGERY Left PROCEDURE: HISTORICAL SHOULDER SURGERY UPPER GASTROINTESTINAL ENDOSCOPY 07/28/2009 PROCEDURE: NC UPPER GI ENDOSCOPY PERFORMED; COMMENT: R/o Laurent's [...] use Zyrtec/Claritin at night, Tylenol as needed, odvd-mje-gfsdtso cough medication and albuterol MDI 2 puff every 4 hourly as needed for wheezing. No antibiotics for now. 2. Follow-up exam as needed All questions and concerns were addressed. Peterosaline Ceballos verbalizes understanding and agrees with thistreatment plan. Patient was reminded to call or return to the office if any new or existing problems arise. Orders Placed This Encounter Procedures [id number], RSV, Influenza A and B qualitative RT-PCR None Ronald Desai MD on 11/19/2024 at 12:11 PM EST Today's documentation was made using voice recognition software.This note may contain grammatical errors secondary to this software. documented in this encounter Plan of Treatment Upcoming Encounters Date Type Department Care Team (Late st Contact Info) Description 12/22/2024 7:45 AM EDT Appointment [facility] Xray [address] [place] [phone] 01/11/2025 8:30 AM EDT Office Visit Orthopedic Surgery [facility] [address] [phone] David Beltre, DPMel [address] [address] 01/26/2025 9:10 AM EDT Office Visit Pulmonolgy - [place] 175 [facility] 200 [place] [phone] Suzie Bates, RAMAN 175 [facility] [address] [place] [address] 05/11/2025 3:00 PM EDT Office Visit Nephrology - [facility] [address] [place] [address] Marcelo Roach MD [address] [facility] 200 [place] [address] 05/27/2025 9:00 AM EDT Office Visit Adult [facility] [address] [place] [address] Magui Pang PA [address] [place] [address] documented as of this encounter Procedures Procedure Name Priority Date/Time Associated Diagnosis Comments [id number], RSV, FLU A AND B QUALITATIVE RT-PCR, LOCAL REFERENCE LAB Routine 11/19/2024 11:31 AM EST Viral upper respiratory tract infection documented in this encounter Results * [id number], RSV, Influenza A and B qualitative RT-PCR (11/19/2024 11:31 AM EST) SARS COV-2 Not Detected Not Detected LAB MOLECULAR DIAGNOSTICS METHOD 11/19/2024 11:34 PM EST [facility] Comment: Disclaimer: The manner in [...] for Healthcare Providers can be found at: https://www.fda.gov/media/304991/download Fact sheet for Patients can be found at: https://www.fda.gov/media/484917/download Influenza A PCR Not Detected Not Detected LAB MOLECULAR DIAGNOSTICS METHOD 11/19/2024 11:34 PM EST [facility] Influenza B PCR Not Detected Not Detected LAB MOLECULAR DIAGNOSTICS METHOD 11/19/2024 11:34 PM EST [facility] RSV PCR Not Detected Not Detected LAB MOLECULAR DIAGNOSTICS METHOD 11/19/2024 11:34 PM EST [facility] Swab Nasopharyngeal structure / Unknown Non-blood Collection / Unknown 11/19/2024 11:31 AM EST 11/19/2024 11:31 AM EST us Ronald Desai MD LAB MICROBIOLOGY - GENERAL ORDERABLES Final Result [facility] [address] [place] [address], documented in this encounter Visit Diagnoses Diagnosis Viral upper respiratory tract infection- Primary Acute upper respiratory infections of unspecified site Asthma-COPD overlap syndrome (CMS/HCC) documented in this encounter Additional Health Concerns Infection Onset Date Last Indicated Resolved Time Respiratory Rule-Out 11/19/2024 11/19/2024 025 11:34 PM EST COVID-19 Rule-Out 11/19/2024 11/19/2024 11/19/2024 11:34 PM EST documented as of this encounter Care Teams Trustee Of Estate Relationship Specialty Start Date End Date Ronald Desai MD [address] [place] [address] PCP - General Internal Medicine 07/16/22 documented as of this encounter
--- OUTSIDE RECORDS SUMMARY | 2024-12-18 11:55 | XMS_ITS | Clinical Summary ---
Author Organization [facility] Address [address] [place] [address] Care Team Providers Care Rehab Trainer Name Role Phone Ronald Desai MD Primary Care Provider [phone] Medications Medication Sig Dispensed Refills Start Date [...] age to complete this topic Care Teams Rehab Trainer Relationship Specialty Start Date End Date Ronald Desai MD [address] [place] [phone] PCP - General Hospitalist Medicine 08/27/22
--- OUTSIDE RECORDS SUMMARY | 2024-12-18 11:55 | XMS_ITS | Clinical Summary ---
Author Organization [facility] Address [address] [place] [address] Care Team Providers Care Coin Machine Assembler Name Role Phone Ronald Desai MD Primary Care Provider Allergies No known active allergies Medications Medication [...] age to complete this topic Care Teams Coin Machine Assembler Relationship Specialty Start Date End Date Ronald Desai MD [address] [place] [address] PCP - General Medicine Hospitalist 07/18/23
--- OUTSIDE RECORDS SUMMARY | 2024-12-18 11:55 | XMS_ITS | Encounter Summary ---
Author Organization [facility] Address [address] [place] [address] Care Team Providers Care Charge Hand Name Role Phone Ronald Desai MD Primary Care Provider [phone] Reason for Visit * Reason Comments Follow-up Nail care Encounter Details Date Type Department Care Team ([facility] st Contact Info) Description 12/08/2024 9:15 AM EST Office Visit Orthopedic Surgery [facility] [address] [phone] David Beltre, DPM [address] [address] Plantar fascial fibromatosis (Primary Dx); Equinus contracture of ankle; Ingrowing nail; Hammer toe of left foot; Acquired hammer toe of right foot Social History Tobacco Use Types Packs/Day Years [...] Sign Reading Time Taken Comments Blood Pressure - - Pulse - - Temperature - - Respiratory Rate - - Oxygen Saturation - - Inhaled Oxygen Concentration - - Weight 104 kg (230 lb) 12/08/2024 8:57 AM EST Height 182.9 cm (6' 0.01 ) 12/08/2024 8:57 AM ES T Body Mass Index 31.19 12/08/2024 8:57 AM EST documented in this encounter Progress Notes * David Beltre, DPM - 12/08/2024 9:15 AM EST S Patient presents today with multiple pedal complaints he was missed to follow-up appointments has been noncompliant with consistent follow-up care was last seen in April 2024 and was not seen in May with follow-up appointments previously made states that he has had worsening sharp shooting pain in both heels left and right he states debilitating to him he states the injections previously did help Notes his left heart help pain did have well but did resolve he states he is feeling much better with both feet his right as well as left location bothers him states he has several radiating pain from his back down to his feet with history of lumbar thoracic sacral radiculopathies notes his nailsbeen curling more states his nails continue to grow into his skin he would like them addressed today states they still been bothering him more more and has some thoughts about options ROS: GENERAL: Pt denies nausea, fever, vomiting, chills, or shortness of breath. Pt in NAD. CARDIOLOGY: pt denies chest pain, palpitations LUNGS: pt denies shortness of breath MUSCULOSKELETAL: See HPI, otherwise no joint pain or swelling, back pain, or muscle pain. SKIN: see HPI, otherwise no lesions, rash or itching NEURO: No persistent headache, weakness or numbness The remainder of the review of systems is noncontributory PAST MEDICAL HISTORY: Patient Active Problem List Diagnosis Code Allergic rhinitis, cause unspecified J30.9 Abnormality of gait R26.9 Thoracic or lumbosacral neuritis or radiculitis, unspecified [id number] Dysplastic nevi D48.5 Tear of supraspinatus tendon M75.100 Renal cyst N28.1 Adjustment disorder with mixed anxiety and depressed mood F43.23 Mixed hyperlipidemia E78.2 NEO on CPAP G47.33 Stage 3 chronic kidney disease (HCC) N18.30 Dementia (HCC) F03.90 Dysphagia R13.10 Chronic obstructive pulmonary disease (HCC) J44.9 Lung nodule seen on imaging study R91.1 Spinal stenosis of lumbar region M48.061 Cervical radiculopathy M54.12 Cervical stenosis of spinal canal M48.02 Nuclear sclerosis of both eyes H25.13 Elevated PSA R97.20 Snoring R06.83 Mild persistent asthma without complication J45.30 Methacholine challenge positive R94.2 Gastroesophageal reflux disease without esophagitis K21.9 Obesity (BMI 30-39.9) E66.9 Pre-operative cardiovascular examination Z01.810 Gallbladder polyp K82.4 Hepatomegaly R16.0 Cervical spinal stenosis M48.02 Flatulence, eructation, and gas pain R14.3, R14.1, R14.2 Muscle cramps R25.2 Herpes simplex infection B00.9 Dyspnea on exertion R06.09 Heart murmur R01.1 Primary hypertension I10 Epigastric discomfort R10.13 Nontraumatic complete tear of right rotator cuff M75.121 Impingement syndrome of shoulder region M75.40 Bilateral shoulder region arthritis M19.011, M19.012 Peripheral neuropathy G62.9 S/P lumbar fusion Z98.1 Lumbar radiculopathy M54.16 SOCIAL HISTORY: Social History Tobacco Use Smoking status: Never Passive exposure: Past Smokeless tobacco: Never Substance Use Topics Alcohol use: No History Last Reviewed by Lucy Meng MA on 03/19/2024 at 11:24 AM Sections Reviewed Tobacco ACTIVE MEDICATIONS: Current Outpatient Medications Medication Sig Dispense Refill diazepam (Valium) 5 MG tablet Take 1 Tablet by mouth See Admin Instructions. Take 1 tablet 1 hour before MRI scan. This medication may cause drowsiness/sleepiness and you need a ride on that day 2 Tablet 0 fluticasone 50 MCG/ACT nasal spray INSTILL 2 SPRAYS IN EACH NOSTRIL ONCE A DAY 48 mL 1 cyclobenzaprine (FLEXERIL) 10 MG tablet TAKE 1 TABLET TWICE DAILY NEEDED FOR MUSCLE SPASM.MAY CAUSE DROWSINESS.DONT DRIVE 30 Tablet 0 guaifenesin (ROBITUSSIN) 100 MG/5ML liquid Take 10 mL by mouth 3 times daily as needed for Cough. 30 mL 0 ALBUTEROL SULFATE (ProAir HFA) 108 (90 Base) MCG/ACT Aero Soln Inhale 2 Puffs into the lungs every 6 hours as needed for Wheezing or Shortness of Breath. This is a Rescue Medication; not exceed 12 inhalations/24 hrs. 1 g 3 Fluticasone-Salmeterol (Wixela Inhub) 500-50 MCG/ACT AEROSOL POWDER,BREATH ACTIVATED Inhale 1 Puff into the lungs 2 times daily. 180 Each 3 montelukast (Singulair) 10 MG tablet Take 1 Tablet by mouth at bedtime for 360 days. 30 Tablet 2 lorazepam (Ativan) 1 MG tablet Take one tablet 30 minutes before the MRI scan for claustrophobia 2 Tablet 0 fexofenadine (Moon Allergy) 180 MG tablet Take 1 Tablet by mouth at bedtime. 14 Tablet 0 Evolocumab (Repatha SureClick) 140 MG/ML Solution Auto-injector Inject 140 mg into the skin every 14 days. 6 mL 2 Magnesium 100 MG Tab Take 1 Tablet by mouth daily. 30 Tablet 3 Cholecalciferol (D-1000 Extra Strength) 25 MCG (1000 UT) Tab Take 1 Tablet by mouth daily. 90 Tablet 1 Aspirin Low Dose 81 MG EC tablet TAKE 1 TABLET BY MOUTH EVERY DAY 90 Tablet 1 Ipratropium-Albuterol (DuoNeb) 0.5-2.5 (3) MG/3ML Solution Inhale 3 mL into the lungs once for 1 dose. 1 mL 0 ezetimibe (ZETIA) 10 MG tablet TAKE 1 TABLET BY MOUTH DAILY FOR CHOLESTEROL 90 Tablet 1 losartan (COZAAR) 25 MG tablet TAKE 1 TABLET BY MOUTH EVERY DAY 90 Tablet 1 Lactobacillus (Acidophilus) 0.5 MG Tab Take 1 Tablet by mouth 2 times daily. 30 Tablet 0 pantoprazole (PROTONIX) 20 MG tablet Take 1 Tablet by mouth 2 times daily. 180 Tablet 1 Ipratropium-Albuterol 0.5-2.5 (3) MG/3ML Solution Inhale 3 mL into the lungs 4 times daily as needed (SOB/ wheezing). 300 mL 1 furosemide (LASIX) 20 MG tablet TAKE 1 TABLET BY MOUTH EVERY DAY NEEDED FOR LEG EDEMA. 90 Tablet1 gabapentin (NEURONTIN) 100 MG capsule Take 2 Capsules by mouth at bedtime. 60 Capsule 4 Calcium Carb-Cholecalciferol (Calcium 1000 + D) 1000-20 MG-MCG Tab Take 1 Tablet by mouth daily. 90Tablet 1 Alum & Mag Hydroxide-Simeth 200-200-20 MG/5ML Suspension Take 30 mL by mouth 4 times daily as needed for Other. 1680 mL 11 lidocaine (LIDODERM) 5 % Place 1 Patch onto the skin every 24 hours. Apply for no more than 12 hours in any 24 hour period. 28 Patch 1 Zinc Gluconate 50 MG Cap Take 1 Capsule by mouth daily. ketoconazole (NIZORAL) 2 % shampoo Apply to scalp daily prn 120 mL 5 Multiple Vitamins-Minerals (ZINC OR) Take by mouth daily. carboxymethylcellulose (REFRESH PLUS) 0.5 % Solution apply 1 Drop to the eye 3 times daily as needed (when dry or gritty). 1 Bottle 5 hydrocortisone 2.5 % cream Apply to affected areas, daily or twice daily, as directed. 60 g 6 SPACER DEVICE-ADULT 1 Each by Does not apply route daily. 1 Each 0 No current facility-administered medications for this visit. ALLERGIES: Dust and Pravastatin sodium [fd&c blue #1-pravastatin] PHYSICAL EXAM: Height 6' (1.829 m), weight 227 lb (103 kg). Estimated body mass index is 30.79 kg/m?? as calculated from the following: Height as of this encounter: 6' (1.829 m). Weight as of this encounter: 227 lb (103 kg). PODIATRIC EXAMINATION: GENERAL: Patient appears well nourished, with NAD. VASCULAR: Dorsalis pedis pulses are 1/4 bilaterally and Posterior tibial pulses are 1/4 bilaterally. Capillary filling time within normal limits the digits. No pallor on elevation or rubor on dependency. Positive hair growth. No varicosities. Denies rest pain or claudication pain. NEUROLOGICAL: Sharp/dull sensation intact, protective sensation intact 10/10 with 5.07 semmes lenny bilaterally, vibratory sensation with tuning fork intact to the tibial tuberosity. ORTHOPEDIC: Good muscle strength 5/5 of all flexors and extensors. Dorsi flexion of ankle ,5 degrees, plantar flexion WNL. No muscle atrophy. Heel pain localized to the medial tubercle of the bilateral calcaneus. Improved significantly Negative heel squeeze pain, Negative lateral calcaneal wall pain, Negative posterior heel pain. Negative pain of the achilles insertion. Negative tinells. Negative pain of the posterior tibial tendon. No palpable fibrous mass mid arch. DERMATOLOGICAL: Abnormal curvature of great toenail of the right foot as well as fourth digit bilaterally without breaks in skin Toenails: Left Toenail(s) 1-5: Crumbling upon debridement, subungual debris, discoloration, dystrophy, elongation, mycotic appearance, onychomycosis, pain and thickening. Right Toenail(s) 1-5: Crumbling upon debridement, subungual debris, discoloration, dystrophy, elongation, mycotic appearance, onychomycosis, pain and thickening. Annular scaling bilateral feet moccasin distribution Skin thinning texture shiny appearance diffuse hyperpigmentation bilaterally pedal hair decreased BIOMECHANICS: STJ ROM wnl, MTJ ROM wnl, 1st MPJ ROM mild track bound bunion bilateral. Adductovarus contractural deformity of the fourth and fifth digit bilaterally right fourth left fourth and fifth worse with under lapping of the digit IMAGING: [facility] Result Report Patient: Pete Ceballos Date of Service: 03/26/22 Patient Gender: Male Ordering Provider: Farheen Alford : 1955 Final X-RAY EXAM OF FOOT, COMPLETE (3 VIEWS) Exam Date: 03/26/2022 9:23 AM Ordering Diagnosis: Toe pain, bilateral History: Bilateral toe pain. Bilateral feet, 3 views each: There is a mild hallux valgus configuration on the left. There are small plantar and posterior calcaneal spurs on the right. There is also some minimal calcification of the plantar fascia distal to the spur of the right. There is a small posterior spur on the left. Note is made that the 4th and 5th toes are flexed bilaterally with some overlap of the 3rd and 4th toes on the left. Other bony and soft tissue structures are unremarkable. IMPRESSION IMPRESSION: Small heel spurs as above. Mild hallux valgus on the left. Reading Physician: Signed by: Peng Mar MD on 03/26/2022 9:31 AM This report was sent to: Farheen Alford at [address] [place] [id number]. Cc: IMPRESSION: 1. Plantar fascial fibromatosis 2. Equinus contracture of ankle 3. Ingrowing nail 4. Hammer toe of left foot 5. Acquired hammer toe of right foot PLAN: Pt was seen and examined, history reviewed. - Discussed in detail oral anti-inflammatory medications, resting icing stretching, prefabricated insoles versus custom insoles, steroid injection. - Stretching exercises reviewed in detail with patient - Instructed patient to rest and ice foot at the end of the day - rx physical therapy patientdeclined -Continue with anti-inflammatory medication prescription given for custom orthotics Revisited surgical options for hammertoe contractures treatment options for left foot fourth digit arthroplasty hammertoe correction correction were discussed, non-operative treatment would involve tapping, strapping, adjustments in shoe gear, orthoticsinsoles, rest, bracing and edema control. There is potential for the deformities to stabilize without surgery yet there may still be a need for delayed surgery and joint distructive procedures. Thereis potential for non-union with surgery and non-operative care would avoid incision problems, fixation complications and anesthesia risks. Surgery has added risks including but not limited to infection, incision pain, neuritis or numbness reoccurance of deformity, scar tissue contracture, worseningof deformity and eventual need for removal of hardware. left foot fourth digit arthroplasty hammertoe correction healing was discussed in relation to operative treatment. Recovery and post operative immobilization was discussed based on the various treatment options. Recommended silicone toe sleeves and tubular gauze Minor surgical procedure specific to nail removal with matrixectomy was discussed and reviewed discussed with patient recovery expectations from nail removal specific to his great toes of both great toes discussed local wound care of 4 to 6 weeks with ointment and Band-Aid and prophylaxis antibiotics after like discussion of risk and benefits of minor surgical procedure patient states like to think about it would hold off on surgery today Follow-up in 1 month David Beltre DPM documented in this encounter Plan of Treatment Upcoming Encounters Date Type Department Care Team (Late st Contact Info) Description 12/22/2024 7:45 AM EDT Appointment [facility] Xray [address] [place] [phone] 01/11/2025 8:30 AM EDT Office Visit Orthopedic Surgery [facility] [address] [phone] David Beltre DPM [address] [address] 01/26/2025 9:10 AM EDT Office Visit Pulmonolgy [facility] [address] [place] [phone] Suzie Bates NP 175 [facility] [address] [place] [address] 05/11/2025 3:00 PM EDT Office Visit [facility] [address] [place] [phone] Marcelo Roach MD [address] [facility] [address] [place] [address] 05/27/2025 9:00 AM EDT Office Visit Adult Medicine [address] [phone] Magui Pang PA [address] [place] [address] documented as of this encounter Visit Diagnoses Diagnosis Plantar fascial fibromatosis- Primary Equinus contracture of ankle Ingrowing nail Hammer toe of left foot Acquired hammer toe of right foot documented in this encounter Care Teams Charge Hand Relationship Specialty Start Date End Date Ronald Desai MD [address] [place] [address] PCP - General Internal Medicine 07/16/22 documented as of this encounter
--- OUTSIDE RECORDS SUMMARY | 2024-12-18 11:55 | XMS_ITS | Data Portability ---
Author Organization [facility] Mat Massey [facility] Address [address] [place] [phone] Care Team Providers Care Silver Solution Mixer Name Role Phone JASONADAN KASHMIR Primary Care Provider Assessment Encounter Date [...] findings at length with the patient today. ? ? ?We discussed the nature and etiology of this problem along with current treatment options. We discussed the expected course and outcomes and what to expect. We also discussed risks and benefits. ? ? ?All of their questions were answered today, and there was exhibited understanding and comprehension of all that was discussed. 10 minutes were spent reviewing previous imaging and charting. ? ? ?10 minutes were spent obtaining patient history. ? ? ?5 minutes were spent on physical exam. ? ? ?5? ? ?minutes were spent explaining diagnosis and assessment. Today's [...] primary osteoarthri tis of the shoulder region 438146126 Active 2022 SILVIA ARCE PA-C [address], [place], [address], [facility], P 3 09:28:46 Rupture of rotator cuff of right shoulder [id number] 9103 Active 2022 SILVIA ARCE PA-C [address], [place], [phone], [facility], P 3 09:28:56 Problem Notes None recorded. [...] Relief 50 mcg/actuatio n nasal spray,suspen linda Harlan 1 spray every day by intranasal route. [...] Updated DateTime 12/27/2022 182.88 cm 31.6 kg/m2 589097.[address] [facility] [place], 12/27/2022 08:51:03 Social History None recorded. Functional [...] ICD10 Code Diagnosis Note 654 MD CHINA Byrneyan [address] [facility] [place] [address] 12/27/2022 08:43:13 12/27/2022 09:01:29 Localized, primary osteoarthritis of the shoulder region 513947581 M19.019 Rupture of rotator cuff of right shoulder [id number] 4872040 M75.101 Health Concerns Section Related Observation LastModified by Organization Mariama rene LastModified Time None Recorded Concern Status LastModified by Organization Details LastModified Time None Recorded Advance Directives Directive None Recorded Payers Encounter Date Sequence Insurance Name Policy Number Policy Leigh Covered Member ID Leigh Member ID Guarantor Name 12/27/2022 1 [facility] [id number] 1 Pete Ceballos [id number] Peterosaline Ceballos Notes Date Note Type Note [...] tearing of the left shoulder who is symptomatic.? ? ?I had a lengthy discussion with the patient regarding management including surgical treatment options for which she is adamant that he is not interested in. He states his pain keeps him up at night and he is amenable to cortisone injections of both shoulders.? ? ?He understands the risks associated with cortisone injection [...] follow-up. The patient agrees with the above-noted plan.? ? ?HPI:? ? ?Pleasant 67-year-old male last seen on the above-noted [...] clearance for earlier injection. SILVIA ARCE PA-C [address] [facility],[address], [place], [address], [place] [facility] [place], P 12/27/2022 09:30:00
--- OUTSIDE RECORDS SUMMARY | 2024-12-18 11:55 | XMS_ITS | Encounter Summary ---
Author Organization [facility] Address [address] [place] [address] Care Team Providers Care Manufacturing Specialist Name Role Phone Ronald Desai MD Primary Care Provider Encounter Details Date Type Department Care Team (Late Contact Info) Description 08/21/2024 Lab Requisition [facility] - Main Lab [address] [facility] [place] [phone] Rajeev Diaz MD [address] [place] [address] Dysphagia, unspecified Social History Tobacco Use Types [...] Department Care Team (Late Contact Info) Description 12/22/2024 7:[address] [facility] Xray [address] [place] [phone] 01/11/2025 8:30 AM EDT Office Visit Orthopedic Surgery [facility] [address] [phone] David Beltre, DPM [address] [phone] 01/26/2025 9:10 AM EDT Office Visit Pulmonolgy - [place] [address] [place] [phone] Suzie Bates NP [address] [place] [address] 05/11/2025 3:00 PM EDT Office Visit Nephrology - [facility] [address] [place] [address] Marcelo Roach MD [address] [place] [address] 05/27/2025 9:00 AM EDT Office Visit Adult Medicine [facility] [address] [place] [phone] Magui Pang PA [address] [place] [address] documented as of this encounter Visit Diagnoses Diagnosis Dysphagia, unspecified documented in this encounter Additional Health Concerns Infection Onset Date Last Indicated Resolved Time Respiratory Rule-Out 11/19/2024 11/19/2024 025 11:34 PM EST COVID-19 Rule-Out 11/19/2024 11/19/2024 11/19/2024 11:34 PM EST documented as of this encounter Care Teams Manufacturing Specialist Relationship Specialty Start Date End Date Ronald Desai MD [address] [place] [address] PCP - General Internal Medicine 07/16/22 documented as of this encounter
--- OUTSIDE RECORDS SUMMARY | 2024-12-18 11:55 | XMS_ITS | Encounter Summary ---
Author Organization [facility] Address [address] [place] [address] Care Team Providers Care It Infrastructure Engineer Name Role Phone Ronald Desai MD Primary Care Provider [phone] Reason for Visit * Reason Comments Sinus Problem Encounter Details Date Type Department Care Team (Late st Contact Info) Description 12/04/2024 11:15 AM EST Office Visit Adult Medicine [address] [phone] Magui Pang PA [address] [place] [id number] Asthma-COPD overlap syndrome (CMS/HCC) (Primary Dx); COPD exacerbation (CMS/HCC); Upper respiratory tract infection, unspecified type Social History Tobacco Use Types Packs/Day Years [...] Sign Reading Time Taken Comments Blood Pressure 148/62 12/04/2024 10:51 AM EST Pulse 76 12/04/2024 10:51 AM EST Temperature 36.9 ??C (98.5 ??F) 12/04/2024 10:[address] Respiratory Rate 16 12/04/2024 10:51 AM EST Oxygen Saturation - - Inhaled Oxygen Concentration - - Weight 104 kg (230 lb) 12/04/2024 10:51 AM EST Height 182.9 cm (6') 12/04/2024 10:51 AM EST Body Mass Index 31.19 12/04/2024 10:51 AM EST documented in this encounter Ordered Prescriptions Prescription Sig Dispense Quantity Refills Last Filled Start Date End Date predniSONE (DELTASONE) 20 mg tablet Take 60 mg PO daily for 3 days, then take 40 mg PO daily for 3 days, then 20 mg PO daily for 3 days, then stop 18 tablet 12/04/2024 azithromycin (ZITHROMAX) 250 mg tablet Take 2 tablets (500 mg total) by mouth 1 (one) time each day for 1 day, THEN 1 tablet (250 mg total) 1 (one) time each day for 4 days. 6 tablet 12/04/2024 5 documented in this encounter Progress Notes * MATTHEW Mccloud 12/04/2024 11:15 AM EST CHIEF COMPLAINT: Sinus Problem IDENTIFIER: Pete Ceballos is a 69 y.o. old male. HPI: Pete Ceballos is a 69 y.o. old male 68-year-old male patient with a past medical history of hypertension, hyperlipidemia, CKD stage III, asthma/COPD, NEO not compliant with CPAP therapy, GERD, fatty liver, gallstones, cervical radiculopathy with right arm symptoms, status post cervical fusion surgery,L2-L3 moderate to severe spinal stenosis, s/p L2 -L3 decompression, muscle twitching's, ataxia, cognitive impairment and obesity, who is seen here for sick visit. Patient presents today complaining of ongoing productive cough, nasal congestion, sinus pressure, chills. Patient reports productive white to yellow sputum production. Has been taking Robitussin [id number] with allergy medication without much relief. He reports increasing shortness of breath and having to use his albuterol inhaler more frequently. ROS: See HPI. PAST MEDICAL HISTORY: Patient Active Problem List [...] study 04/18/2015 Mild chronic obstructive pulmonary disease ([facility]) 03/28/2015 Chronic obstructive pulmonary disease ([facility]) 03/28/2015 Dysphagia 01/27/2015 Dementia ([facility]) 10/15/2012 Stage 3 chronic kidney disease ([facility]) 01/06/2012 Sleep apnea 06/01/2011 Obstructive [...] MOLE (REMOVAL OF) NASAL SEPTUM SURGERY PROCEDURE: MS SEPTOPLASTY/SUBMUCOUS RESECJ W/WO CARTILAGE GRF NECK SURGERY PROCEDURE: HISTORICAL NECK SURGERY; COMMENT: bone spur surgery SHOULDER SURGERY Left PROCEDURE: HISTORICAL SHOULDER SURGERY UPPER GASTROINTESTINAL ENDOSCOPY 07/28/2009 PROCEDURE: MS UPPER GI ENDOSCOPY PERFORMED; COMMENT: R/o Laurent's [...] Outpatient Medications Marked as Taking for the 12/04/24 encounter (Office Visit) with MATTHEW Mccloud Medication Sig Dispense Refill albuterol HFA (PROAIR [...] (two) times a day. 60 capsule 3 hydrocortisone 1 % topical cream Apply topically 2 (two) times a day. 56 g 1 ipratropium-albuteroL (DUONEB) 0.5-2.5 mg/3 mL nebulizer solution [...] before breakfast and supper 60 each 11 polyethylene glycol (Gavilax) 17 gram/dose oral powder [...] Nose/Rhinitis Pravastatin Other Reaction(s): UNKNOWN PHYSICAL EXAM: Vitals: 12/04/24 1051 BP: (!) 148/62 Pulse: 76 Resp: 16 Temp: 36.9 ??C (98.5 ??F) APPEARANCE: Alert and in no acute distress EYES: PERRLA, conjunctiva and sclera normal. EARS: External ears normal. Canals clear. TMs normal. NOSE/SINUS: Nares normal. Septum midline. Mucosa normal. No drainage or sinus tenderness. MOUTH/THROAT: no erythema or exudates NECK: Neck supple, no adenopathy, thyroid symmetric and of normal size HEART: RRR with normal S1 and S2, no murmurs, no gallops CHEST: non-tender to palpation, no crepitation LUNG: clear to auscultation, no wheezing, rales, or rhonchi. Able to talk in full complete sentences LABS: Results for orders placed or performed in visit on 11/19/24 [id number], RSV, Influenza A and B qualitative RT-PCR Collection Time: 11/19/24 11:31 AM Specimen: Nasopharynx; Swab Result Value Ref Range SARS COV-2 Not Detected Not Detected Influenza A PCR Not Detected Not Detected Influenza B PCR Not Detected Not Detected RSV PCR Not Detected Not Detected IMAGING: Will obtain checks x-ray today. IMPRESSION: 1. Asthma-COPD overlap syndrome ([facility]) 2. COPD exacerbation ([facility]) 3. Upper respiratory tract infection, unspecified type PLAN: Patient with persistent, worsening URI symptoms. Will update chest x-ray to rule out pneumonia. He recently had a viral nasal swab which was negative for COVID, flu, RSV. Patient will be started on aZ-Ambrose and prednisone taper for COPD exacerbation. He was advised to increase fluids and electrolytes, call office in 7 to 10 days if persistent symptoms. All questions and concerns were addressed. Pete Ceballos verbalizes understanding and agrees with thistreatment plan. Patient was reminded to call or return to the office if any new or existing problems arise. Orders Placed This Encounter Procedures XR Chest 2 Views None MATTHEW Mccloud on 12/04/2024 at 12:56 PM EST Today's documentation was made using voice recognition software.This note may contain grammatical errors secondary to this software. documented in this encounter Plan of Treatment Upcoming Encounters Date Type Department Care Team (Late st Contact Info) Description 12/22/2024 7:[address] [facility] Xray [address] [place] [phone] 01/11/2025 8:30 AM EDT Office Visit Orthopedic Surgery - [place] [address] [phone] David Beltre, DPM [address] [address] 01/26/2025 9:10 AM EDT Office Visit Pulmonolgy - [place] [address] [phone] Suzie Bates NP 175 [facility] 200 [place] [address] 05/11/2025 3:00 PM EDT Office Visit [facility]phrology - [facility] [address] [facility] [place] [address] Marcelo Roach MD [address] [facility] [address] [place] [address] 05/27/2025 9:00 AM EDT Office Visit Adult Medicine [address] [phone] Magui Pang PA [address] [place] [phone] documented as of this encounter Results * XR Chest 2 Views (12/04/2024 11:24 AM EST) Anatomical Region Laterality Modality Body Radiographic Светлана ging 12/04/2024 12:0 7 PM EST Impressions 12/04/2024 1:13 PM EST No acute cardiopulmonary abnormality. -------- FINAL REPORT -------- Dictated By: Nelli Estrada Dictated Date: 12/04/2024 12:07 ET Assigned Physician: Nelli Estrada Reviewed and Electronically Signed By: Nelli Estrada Signed Date: 12/04/2024 13:13 ET Workstation ID: [id number] Transcribed By: Self Edit Transcribed Date: 12/04/2024 12:07 ET Narrative 12/04/2024 1:13 PM EST XR CHEST 2 VIEWS Reason: productive cough Comparison: Chest radiograph on March 10, 2024 and is far back as September 02, 2022 FINDINGS: Lungs: Small nodule projecting over the right upper lung is unchanged from 2021. ??No focal consolidation or pulmonary edema. Pleura: No pleural effusion or pneumothorax. Heart/Mediastinum: Unchanged cardiomediastinal silhouette. Bones : No acute findings. Procedure Note Nelli Estrada MD - 12/04/2024 XR CHEST 2 VIEWS Reason: productive cough Comparison: Chest radiograph on March 10, 2024 and is far back as 2021 FINDINGS: Lungs: Small nodule projecting over the right upper lung is unchanged [id number]. No focal consolidation or pulmonary edema. Pleura: No pleural effusion or pneumothorax. Heart/Mediastinum: Unchanged cardiomediastinal silhouette. Bones : No acute findings. IMPRESSION: No acute cardiopulmonary abnormality. -------- FINAL REPORT -------- Dictated By: Nelli Estrada Dictated Date: 12/04/2024 12:07 ET Assigned Physician: Nelli Estrada Reviewed and Electronically Signed By: Nelli Estrada Signed Date: 12/04/2024 13:13 ET Workstation ID: [id number] Transcribed By: Self Edit Transcribed Date: 12/04/2024 12:07 ET [facility] Jennifer Sean Poly PA IMG XR PROCEDURES Final Result documented in this encounter Visit Diagnoses Diagnosis Asthma-COPD overlap syndrome (CMS/HCC)- Primary COPD exacerbation (CMS/HCC) Obstructive chronic bronchitis with exacerbation Upper respiratory tract infection, unspecified type Asthma-COPD overlap syndrome (CMS/HCC) COPD exacerbation (CMS/[facility]) Obstructive chronic bronchitis with exacerbation Upper respiratory tract infection, unspecified type documented in this encounter Care Teams It Infrastructure Engineer Relationship Specialty Start Date End Date Ronald Desai MD [address] [place] [address] PCP - General Internal Medicine 07/16/22 documented as of this encounter
--- OUTSIDE RECORDS SUMMARY | 2024-12-18 11:55 | XMS_ITS | Encounter Summary ---
Author Organization [facility] Address [address] [place] [address] Care Team Providers Care Field Talent Qualification Specialist Name Role Phone Ronald Desai MD Primary Care Provider [phone]- [phone] Reason for Visit * Reason Comments Chronic Kidney Disease Encounter Details Date Type Department Care Team (Late st Contact Info) Description 12/16/2024 2:00 PM EST Office Visit Nephrology - [address] [phone] Marcelo Roach MD 100 [facility] 200 [place] [phone] Stage 3a chronic kidney disease (CMS/HCC) (Primary Dx); Cervical radiculopathy; Mixed hyperlipidemia; 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 year old male seen today for f/u HPI: Patient is a anxious but pleasant gentleman with severe cervical spine stenosis status postsurgery with spasms and some disabling symptoms in my office for follow-up regarding CKD patient continues to have arthritic pains He feels better at the present time No chest pain He does have history of hypercholesterolemia He has a tough time losing weight He denies having any history of GI fluid losses recently like diarrhea, nausea or vomiting He has history of sleep apnea He has history of renal cysts for hip which she has seen urology in the past He denies of any dysuria or urgency of urination at the present time His creatinine has been as high as 1.4-1.5 in the past for many years and has been stable HOME MEDICATIONS: Home Medications albuterol HFA (PROAIR HFA ; PROVENTIL HFA ; VENTOLIN HFA) 90 mcg/actuation inhaler Inhale 2 puffs by mouth every 6 (six) hours if needed for wheezing or shortness of breath. This is a Rescue Medication; not exceed 12 inhalations/24 hrs. - Inhalation aluminum-magnesium hydroxide-simethicone (Mylanta Maximum Strength) 400-400-40 mg/5 mL suspension Take 10 mL by mouth 4 (four) times a day (before meals and nightly). aspirin 81 mg EC tablet Take 1 tablet (81 mg total) by mouth 1 (one) time each day. carboxymethylcellulose (Refresh Tears) 0.5 % ophthalmic solution [...] needed formuscle spasms. MAY CAUSE DROWSINESS.DONT DRIVE dicyclomine (BENTYL) 10 mg capsule Take 1 capsule (10 mg total) by mouth. ezetimibe (ZETIA) 10 mg tablet Take 1 tablet (10 mg total) by mouth 1 (one) time each day. fenofibrate (TRICOR) 145 mg tablet Take 1 tablet (145 mg total) by mouth 1 (one) time each day. fluticasone propion-salmeteroL (ADVAIR DISKUS) 500-50 mcg/dose diskus [...] by mouth 2 (two) times a day. hydrocortisone 1 % topical cream Apply topically 2 (two) times a day. ipratropium-albuteroL (DUONEB) 0.5-2.5 mg/3 mL nebulizer solution [...] by mouth 1 (one) time each day. magnesium amino acid chelate 100 mg tablet [...] activate the medication- before breakfast and supper polyethylene glycol (Gavilax) 17 gram/dose oral powder [...] by mouth 1 (one) time each day. azithromycin (ZITHROMAX) 250 mg tablet () Take 2 tablets (500 mg total) by mouth 1 (one) time each day for 1 day, THEN 1 tablet (250 mg total) 1 (one) time each day for 4 days. ACTIVE MEDICATIONS: Current medications reviewed. ALLERGY: Allergies Allergen Reactions House Dust Mite Other Reaction(s): Runny Nose/Rhinitis Pravastatin Other Reaction(s): UNKNOWN PHYSICAL EXAM: Visit Vitals BP (!) 145/77 Pulse 77 Wt 106 kg (232 lb 9.6 oz) BMI 31.54 kg/m?? Smoking Status Never BSA 2.28 m?? No intake/output data recorded. No intake/output data recorded. APPEARANCE: Alert and in no acute distress par EYES: PERRLA, conjunctiva and sclera normal. EARS: External ears normal. Canals clear. NOSE/SINUS: Nares normal. Septum midline. Mucosa normal. No drainage or sinus tenderness. THROAT: no erythema or exudates NECK: Neck supple, no adenopathy, thyroid symmetric and of normal size HEART: RRR with normal S1 and S2 ,no murmurs, no gallops, no JVD appreciated LUNG: clear to auscultation ABDOMEN: Bowel sounds normoactive, no bruits, soft, non-tender, without organomegaly or palpable masses EXTREMITIES: Extremities warm and well perfused without clubbing, cyanosis, or edema NEURO: Awake, alert and oriented x 3, no focal neurological deficit, with symmetrical reflexes SKIN: Skin color, texture, turgor normal. No rashes or lesions. ASSESSMENT 1. Stage 3a chronic kidney disease (CMS/HCC) 2. Cervical radiculopathy 3. Mixed hyperlipidemia 4. 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 6 3 which places him at stage IIIa CKD. 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 He does not have hypertension or diabetes His blood pressure slightly on the high side at the present time but he is in pain Hypercholestremia on meds Continue low-salt diet Patient has been advised to avoid using NSAID/Vill[place] 2 inhibitors Avoid NSAIDs which is again informed to the patient He has been advised to keep himself hydrated Patient has been advised to get a set of lab work before his next visit I recommend keeping the blood pressure systolic less than 120 and diastolic less than 80 Continue low-dose losartan 25 mg every other day with a follow-up lab work A work-up for second hyperparathyroidism including calcium, phosphorus and PTH level acceptable Urine protein excretion within normal limits He will be again seen in the office in 12 months for follow-up Thank you documented in this encounter Plan of Treatment Upcoming Encounters Date Type Department Care Team (Late st Contact Info) Description 12/22/2024 7:45 AM EDT Appointment [facility] Xray [address] [place] [phone] 01/11/2025 8:30 AM EDT Office Visit Orthopedic Surgery [facility] 250 175 [facility] 250 [place] [phone] David Beltre DPM 175 [facility] 250 [place] [address] 01/26/2025 9:10 AM EDT Office Visit Pulmonolgy - [place] 175 [facility] [address] [place] [phone] Suzie Bates NP 175 [facility] 200 [place] [address] 05/11/2025 3:00 PM EDT Office Visit Nephrology - [place] [address] [place] [address] Marcelo Roach MD [address] [place] [address] [place] [address] 05/27/2025 9:00 AM EDT Office Visit Adult Medicine [facility] [address] [place] [phone] Magui Pang PA [address] [place], [place] Scheduled Orders Name Type Priority Associated Diagnoses Orde r Schedule Creatinine Lab Routine Stage 3a chronic kidney disease (CMS/HCC) Cervical radiculopathy Mixed hyperlipidemia 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, stage 1 through stage 4 or unspecified chronic kidney disease, without heart failure Expected: 09/18/2025, Expires: 12/16/2025 BUN Lab Routine Stage 3a chronic kidney disease (CMS/HCC) Cervical radiculopathy Mixed hyperlipidemia 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, stage 1 through stage 4 or unspecified chronic kidney disease, without heart failure Expected: 09/18/2025, Expires: 12/16/2025 Electrolyte panel Lab Routine Stage 3a chronic kidney disease (CMS/HCC) Cervical radiculopathy Mixed hyperlipidemia 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, stage 1 through stage 4 or unspecified chronic kidney disease, without heart failure Expected: 09/18/2025, Expires: 12/16/2025 Protein and creatinine with ratio, urine Lab Routine Stage 3a chronic kidney disease (CMS/HCC) Cervical radiculopathy Mixed hyperlipidemia 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, stage 1 through stage 4 or unspecified chronic kidney disease, without heart failure Expected: 09/18/2025, Expires: 12/16/2025 documented as of this encounter Visit Diagnoses Diagnosis Stage 3a chronic kidney disease (CMS/HCC)- Primary Cervical radiculopathy Brachial neuritis or radiculitis nos Mixed hyperlipidemia 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 AT 6PM DIRECTED 12/16/2024 docusate sodium (COLACE) 100 mg capsule Take 1 capsule (100 mg total) by mouth 2 (two) times a day. 12/07/2022 12/16/2024 predniSONE (DELTASONE) 20 mg tablet Take 60 mg PO daily for 3 days, then take 40 mg PO daily for 3 days, then 20 mg PO daily for 3 days, then stop 12/04/2024 12/16/2024 documented as of this encounter Care Teams Field Talent Qualification Specialist Relationship Specialty Start Date End Date Ronald Desai MD [address] [place] [address] PCP - General Internal Medicine 07/16/22 documented as of this encounter
--- OUTSIDE RECORDS SUMMARY | 2024-12-18 11:55 | XMS_ITS | Encounter Summary ---
Author Organization [facility] [address] Address [address] [place] [address] Care Team Providers Care Parking Analyst Name Role Phone Ronald Desai MD Primary Care Provider [phone] Reason for Visit * Reason Onset Date Comments dryness throat 12/09/2024 dry nose 12/09/2024 Encounter Details Date Type Department Care Team (Late st Contact Info) Description 12/09/2024 Telephone Adult Medicine [address] [phone] Ronald Desai MD [address] [place] [phone] dryness throat; dry nose Social History Tobacco Use Types Packs/Day Years [...] as of this encounter Progress Notes * Adelina Busby RN - 12/09/2024 10:13 AM EST Call to pt . Spoke ot pt , c/o dryness in his throat, Using lifew savers, Dryness at night Sitting upright at night, Using a nasal spray, vicks, Nasal drainage, clear to discolored, Cough, productive , post nasal drip Symptoms , Was seen by ENT, c/o a irritation back of his throat, past the tongue, Pt is having a swallowing ,BA swallow test on 04/23/25 At times he has acid reflux, on med. No fever, Sounds stuff when talking, Triaged with advice, Steamy showers, inhale the steam Warm moist towels to lface and sinus area Humidified at night in bedroom, Saline nasal spray to nasal passages He finished antibiotcs, Push fluids Pt agreed to call back if no relief, Patient Active Problem List Diagnosis Abnormality of gait Adjustment disorder with mixed anxiety and depressed mood Allergic rhinitis Bilateral shoulder region arthritis Dementia (CMS/HCC) Dysphagia Dyspnea on exertion Elevated PSA Flatulence, eructation, and gas pain Gallbladder polyp Gastroesophageal reflux disease without esophagitis Heart murmur Hepatomegaly Herpes simplex infection Hyperlipidemia Impingement syndrome of shoulder region Lung nodule seen on imaging study Methacholine challenge positive Mild chronic obstructive pulmonary disease (CMS/HCC) Mild persistent asthma without complication Epigastric discomfort Muscle cramps Neoplasm of uncertain behavior of skin Nontraumatic complete tear of right rotator cuff Nuclear sclerosis of both eyes Obesity (BMI 30-39.9) Peripheral neuropathy Primary hypertension Renal cyst Sleep apnea Snoring Spinal stenosis of cervical region Lumbar radiculopathy Cervical radiculopathy Spinal stenosis of lumbar region Stage 3 chronic kidney disease (CMS/HCC) Tear of supraspinatus tendon Dysplastic nevi Thoracic and lumbosacral neuritis Pre-operative cardiovascular examination Acute frontal sinusitis Bilateral acute serous otitis media Bilateral tinnitus Cellulitis of left external ear Chronic mycotic otitis externa Disorder of both eustachian tubes Dizziness and giddiness Infective otitis externa of right ear Localized, 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 azithromycin (ZITHROMAX) 250 mg tablet Take 2 tablets (500 mg total) by mouth 1 (one) time each dayfor 1 day, THEN 1 tablet (250 mg total) 1 (one) time each day for 4 days. 6 tablet 0 bisacodyL (DULCOLAX) 5 mg EC tablet Take [...] mouth. PLEASE SEE ATTACHED FOR DETAILED DIRECTIONS predniSONE (DELTASONE) 20 mg tablet Take 60 mg PO daily for 3 days, then take 40 mg PO daily for 3 days, then 20 mg PO daily for 3 days, then stop 18 tablet 0 sodium chloride (OCEAN) 0.65 % nasal spray [...] by mouth 1 (one) time each day. No current facility-administered medications for this visit. * Lily Lewis - 12/09/2024 9:41 AM EST Patient call requires triage: Symptoms patient is presenting: PT was seen in office last week and was giving antibiotics, pt has finished meds but still has dry throats and his nose as well and is wondering what he can do How long has patient had these symptoms?: 1 week For ALL patients calling to schedule any appointment (routine, sick visit, follow up, consult, etc.) in the outpatient setting please ask the following questions: Do you have fever of higher than 101, sore throat with difficulty swallowing or severe shortness ofbreath? no If YES to any of these above symptoms, send a message to triage and do not book. Red dot. If no, an audio or video visit should be booked. Have you had close contact with someone with Coronavirus in the last 14 days? no Have you traveled abroad? no Have you traveled recently to another state outside of [place], [place], [place], [place], [place], [place], [place]? no o If yes, did you quarantine for 14 days or have a negative covid test? no If yes to any of the above, patient is not to be scheduled in office until after 14 day quarantine or negative covid test. If pain or injury related was it due to an accident at work or from a motor vehicle accident? If yes, date of accident/Injury: No If yes, gather 3rd alliance party insurance information Third Green Party Information: not applicable PCP: Ronald Desai MD Payor: [facility] / Plan: [employer] [place] / Product Type: *No Product type* / documented in this encounter Plan of Treatment Upcoming Encounters Date Type Department Care Team (Late st Contact Info) Description 12/22/2024 7:45 AM EDT Appointment [facility] [address] [phone] 01/11/2025 8:30 AM EDT Office Visit Orthopedic Surgery - [place] [address] [facility] 250 [place] [phone] David Beltre, DPM [address] [address] 01/26/2025 9:10 AM EDT Office Visit Pulmonolgy - [place] [address] [phone] Suzie Bates NP [address] [address] 05/11/2025 3:00 PM EDT Office Visit Nephrology - [facility] [address] [place] [phone] Marcelo Roach MD [address] [phone] 05/27/2025 9:00 AM EDT Office Visit Adult Medicine [facility] [place] [address] [place] [address] Magui Pang PA [address] [place] [address] documented as of this encounter Visit Diagnoses Not on filedocumented in this encounter Care Teams Parking Analyst Relationship Specialty Start Date End Date Ronald Desai MD [address] [place] [address] PCP - General Internal Medicine 07/16/22 documented as of this encounter
--- OUTSIDE RECORDS SUMMARY | 2024-12-18 11:55 | XMS_ITS | Encounter Summary ---
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 He has one on 03/26/23 but he is checking in for a sooner appointment. PT says [facility] told him to call our office. documented in this encounter Plan of Treatment Not on file documented as of this encounter Visit Diagnoses Not on filedocumented in this encounter
--- OUTSIDE RECORDS SUMMARY | 2024-12-18 11:55 | XMS_ITS | Encounter Summary ---
Author Organization [facility] Address [address] [place] [address] Care Team Providers Care Manufacturing Business Analyst Name Role Phone Ronald Desai MD Primary Care Provider [phone] Reason for Visit * Reason Onset Date Comments call back 11/03/2024 Encounter Details Date Type Department Care Team (Late st Contact Info) Description 11/03/2024 Telephone Adult Medicine [address] [phone] Ronald Desai MD [address] [place] [phone] call back Social History Tobacco Use Types [...] is aware of message below. * Coral Tran - 11/03/2024 9:53 AM EST Patient would like call back on results of lab work done on 10/27/24 please call back. documented in this encounter Plan of Treatment Upcoming Encounters Date Type Department Care Team (Late st Contact Info) Description 12/22/2024 7:45 AM EDT Appointment [facility] [address] [place] [address] 01/11/2025 8:30 AM EDT Office Visit Orthopedic Surgery - [place] [address] [facility] [address] [place] [phone] David Beltre DPMel [address] [address] 01/26/2025 9:10 AM EDT Office Visit Pulmonolgy - [place] 175 [facility] [address] [place] [phone] Suzie Bates NP [address] [address] 05/11/2025 3:00 PM EDT [facility] [address] [place] [phone] Marcelo Roach MD [address] [address] 05/27/2025 9:00 AM EDT Office Visit Adult Medicine [address] [phone] Magui Pang PA [address] [place] [address] documented as of this encounter Visit Diagnoses Not on filedocumented in this encounter Additional Health Concerns Infection Onset Date Last Indicated Resolved Time Respiratory Rule-Out 11/19/2024 11/19/2024 025 11:34 PM EST COVID-19 Rule-Out 11/19/2024 11/19/202411/1911/19/2024 11:34 PM EST documented as of this encounter Care Teams Manufacturing Business Analyst Relationship Specialty Start Date End Date Ronald Desai MD [address] [place] [address] PCP - General Internal Medicine 07/16/22 documented as of this encounter
--- OUTSIDE RECORDS SUMMARY | 2024-12-18 11:55 | XMS_ITS | Clinical Summary ---
Author Organization [facility] Address [address] [place] [address] Phone Care Team Providers Care [place] Naturalist Name Role Phone Ronald Desai MD Primary Care Provider [phone] Allergies Active Allergy Reactions Criticality Noted Date Comments House Dust Mite High 10/25/2009 Other Reaction(s): Runny Nose/Rhinitis Pravastatin 01/28/2023 Other Reaction(s): UNKNOWN Medications zinc gluconate 50 mg tablet Take 1 capsule by mouth 1 (one) time each day. Active carboxymethylc ellulose (Refresh Tears) 0.5 % ophthalmic solution Administer 1 drop into affected eye(s) 3 (three) times a day if needed for dry eyes. 08/15/20 17 Active cholecalcifero l (VITAMIN D-3) 25 mcg (1,000 unit) tablet Take 1 tablet (1,000 Units total) by mouth 1 (one) time each day. 09/07/20 22 Active fluticasone propionate (FLONASE) 50 mcg/actuation nasal spray Administer 2 sprays into each nostril 1 (one) time each day. 02/20/20 23 Active ipratropium-al buteroL (DUONEB) 0.5-2.5 mg/3 mL nebulizer solution Inhale 3 mL by mouth. 11/20/19 24 Active montelukast (SINGULAIR) 10 mg tablet Take 1 tablet (10 mg total) by mouth at bedtime. 08/21/20 22 Active ketoconazole (NIZORAL) 2 % shampoo Apply topically 1 (one) time each day if needed. 08/06/20 19 Active lidocaine (LIDODERM) 5 % patch Place 1 patch on the skin 1 (one) time each day. Apply for no more than 12 hours in any 24 hour period. - 07/16/20 22 Active magnesium amino acid chelate 100 mg tablet Take 1 tablet by mouth 1 (one) time each day. 12/23/19 21 Active cetirizine (ZyrTEC) 10 mg tablet Take 1 tablet (10 mg total) by mouth. 06/01/20 21 Active aspirin 81 mg EC tablet Take 1 tablet (81 mg total) by mouth 1 (one) time each day. 12/05/19 24 Active dicyclomine (BENTYL) 10 mg capsule Take [...] PLEASE SEE ATTACHED FOR DETAILED DIRECTIONS Active Lactobacillus acidophilus 0.5 mg (100 million cell) tablet Take 1 tablet by mouth 2 (two) times a day. 11/27/19 24 Active loratadine (CLARITIN) 10 mg tablet Take 1 tablet (10 mg total) by mouth 1 (one) time each day. 11/13/19 24 Active sodium chloride (OCEAN) 0.65 % nasal spray Administer 1 spray into each nostril 2 (two) times a day if needed for congestion. needed for Other (nasal dryness or congestion, with use of CPAP Active aluminum-magne sium hydroxide-tammy thicone (Mylanta Maximum Strength) 400-400-40 mg/5 mL suspension Take 10 mL by mouth 4 (four) times a day (before meals and nightly). 900 mL 11 08/25/20 24 Active fluticasone propion-salmet Chanelle (ADVAIR DISKUS) 500-50 mcg/dose diskus inhaler Inhale [...] is a Rescue Medication; not exceed 12 inhalations/2 4 hrs. - Inhalation 6.7 g 3 10/27/19 25 Active cyclobenzaprin e (FLEXERIL) 5 mg tablet Take 1 tablet (5 mg total) by mouth at bedtime as needed for muscle spasms. MAY CAUSE DROWSINESS.DO NT DRIVE 30 tablet 3 10/27/19 25 Active fenofibrate (TRICOR) 145 mg tablet Take 1 tablet (145 mg total) by mouth 1 (one) time each day. 90 each 10/27/19 25 Active losartan (COZAAR) 25 mg tablet Take 1 tablet (25 mg total) by mouth 1 (one) time each day. 90 tablet 1 10/27/19 25 Active ezetimibe (ZETIA) 10 mg tablet Take 1 tablet (10 mg total) by mouth 1 (one) time each day. 90 tablet 1 10/27/19 25 Active gabapentin (NEURONTIN) 100 mg capsule Take 1 capsule (100 mg total) by mouth 2 (two) times a day. 60 capsule 3 10/27/19 25 Active pantoprazole (PROTONIX) 40 mg EC tablet Take 1 tablet (40 mg total) by mouth 2 (two) times a day. Take on empty stomach, wait 30 mins and then eat to activate the medication- before breakfast and supper 60 each 11 10/27/19 25 Active hydrocortisone 1 % topical cream Apply topically 2 (two) times a day. 56 g 1 12/02/19 25 Active docusate sodium (COLACE) 100 mg capsule Take 1 capsule (100 mg total) by mouth 2 (two) times a day. 12/07/19 23 025 Discontinued bisacodyL (DULCOLAX) 5 mg EC tablet Take 2 tablets (10 mg total) by mouth 1 (one) time each day if needed. AT 6PM DIRECTED 025 Discontinued hydrocortisone 1 % topical cream Apply topically 2 (two) times a day. 025 Discontinued(Re order) azithromycin (ZITHROMAX) 250 mg tablet Take 2 tablets (500 mg total) by mouth 1 (one) time each day for 1 day, THEN 1 tablet (250 mg total) 1 (one) time each day for 4 days. 6 tablet 12/04/19 25 025 predniSONE (DELTASONE) 20 mg tablet Take 60 mg PO daily for 3 days, then take 40 mg PO daily for 3 days, then 20 mg PO daily for 3 days, then stop 18 tablet 12/04/19 25 025 Discontinued Active Problems Problem Noted Date Diagnosed Date [...] outlined in detailed above. He follows with chemistry teacher and is due to repeat a sleep study as he has known sleep apnea which is untreated. He also has history of COPD and uses inhalers. Patient encouraged to follow-up with his chemistry teacher regularly. Heart murmur 04/19/2022 Overview (12/18/2023): Last [...] disease 01/06/2012 Sleep apnea 06/01/2011 Overview (12/18/2023): [facility] Home Sleep Apnea Test: Date 11/06/2022; BMI [...] S9 along with Zetia. And has been November. This combination has produced a significant decrease [...] S9 along with Zetia. And has been November. This combination has produced a significant decrease [...] 01/17/2009 Neoplasm of uncertain behavior of skin 8 Overview (12/18/2023): Dysplastic nevi 10/23 back (mild atypia) 10/21 Back x 2 (mildly) Multiple Nevi romoved from lip, scalp, neck, face, trunk on 09/14/2015 - Dr Terrence Johnson Abnormality of gait 07/04/2007 Allergic rhinitis 05/06/2007 Encounters Date Type Department Care Team Description 12/16/2024 2:00 PM EST Office Visit Nephrology [address] [phone] Marcelo Roach MD Stage 3a chronic kidney disease (CMS/HCC) (Primary Dx); Cervical radiculopathy; Mixed hyperlipidemia; 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, stage 1 through stage 4 or unspecified chronic kidney disease, without heart failure 12/09/2024 Telephone Adult Medicine [address] [phone] Ronald Desai MD dryness throat; dry nose 12/08/2024 9:15 AM EST Office Visit Orthopedic Surgery [address] [phone] David Beltre, DPM Plantar fascial fibromatosis (Primary Dx); Equinus contracture of ankle; Ingrowing nail; Hammer toe of left foot; Acquired hammer toe of right foot 12/04/2024 11:15 AM EST - 12/04/2024 11:59 PM EST Hospital Encounter XRAY [address] [phone] Asthma-COPD overlap syndrome (CMS/HCC); COPD exacerbation (CMS/HCC); Upper respiratory tract infection, unspecified type Discharge Disposition: Home or Self Care 12/04/2024 11:15 AM EST Office Visit Adult [address] [phone] Magui Pang PA Asthma-COPD overlap syndrome (CMS/HCC) (Primary Dx); COPD exacerbation (CMS/HCC); Upper respiratory tract infection, unspecified type 12/03/2024 Telephone Adult [address] [phone] Salma Canseco RN 11/19/2024 11:00 AM EST Office Visit [address] [phone] Ronald Desai MD Viral upper respiratory tract infection (Primary Dx); Asthma-COPD overlap syndrome (CMS/HCC) 11/03/2024 Telephone Adult [address] [phone] Ronald Desai MD call back 10/27/2024 11:00 AM EST Office Visit Gastroenterology [facility] 175 [facility] 175 [facility] [address] [place] [phone] Tai Lambert PA Dysphagia, unspecified type (Primary Dx); Gastroesophageal reflux disease with esophagitis without hemorrhage; Globus sensation 10/27/2024 8:00 AM EST Office Visit [address] [phone] Ronald Desai MD Primary hypertension (Primary Dx); Mixed hyperlipidemia; Chronic obstructive pulmonary disease, unspecified COPD type ([facility]/HCC); Obstructive sleep apnea syndrome; Gastroesophageal reflux disease without esophagitis; Stage 3a chronic kidney disease ([facility]); Lumbar radiculopathy; S/P cervical spinal fusion; Cognitive impairment; Muscle twitching; Screening for prostate cancer; Screening for thyroid disorder; Elevated PSA 10/27/2024 Telephone Orthopedic Surgery [facility] [address] [phone] David Beltre DPM Foot Pain 10/22/2024 Telephone Orthopedic [facility] [address] [phone] David Beltre DPM pain after cortisone left foot 10/20/2024 2:30 PM EST Office Visit Orthopedic Surgery [facility] [address] [phone] David Beltre DPM Acquired hammer toe of right foot (Primary Dx); Hammer toe of left foot; Plantar fascial fibromatosis; Equinus contracture of ankle; Dermatophytosis of nail; Pain in toe of right foot; Pain in toe of left foot; Difficulty walking 10/16/2024 Telephone Adult [address] [phone] Ronald Desai MD 09/29/2024 Telephone Gastroenterology [facility] [address] [facility] [address] [place] [address] Tai Lambert PA 09/28/2024 Telephone Gastroenterology [facility] [address] [facility] [address] [place] [address] Tia Harley MA from Last 3 Months Immunizations Name Administration [...] (Fluzone; Afluria) 6mo and older 07/28/2020,07/28/2019,09/12/2016,09/28,07/17/2013,08/08/2012,06/21/2011 ,06/28/2010,09/22/2009 Pfizer SARS-CoV-2 COVID-19, mRNA, LNP-S, preservative free 11/04/2021 [...] HISTORICAL SHOULDER SURGERY NASAL SEPTUM SURGERY PROCEDURE: MI SEPTOPLASTY/SUBMUCOUS RESECJ W/WO CARTILAGE GRF UPPER GASTROINTESTINAL ENDOSCOPY 07/28/2009 PROCEDURE: MI UPPER GI ENDOSCOPY PERFORMED; COMMENT: R/o Laurent's esophagus-biopsy:mild chronic inflammation, mild gastritis-biopsy:gastritis (HPylori+), normal duodenum-biopsy:Nl HERNIA REPAIR PROCEDURE: HISTORICAL HERNIA REPAIR/UMB; COMMENT: dr. mcneil HERNIA REPAIR 10/29/2018 PROCEDURE: REPAIR UMBILICAL HERNIA; COMMENT: Dr. Mcneil Medical History Medical History Date Comments Mental disorder DX:Mental disord er GERD (gastroesophageal reflu x disease) DX:GERD (gastroesophageal re flux disease) COPD (chronic obstructive pu lmonary disease) ([facility]) DX:COPD (chronic obstructive pulmonary disease) ([facility]) Hypertension DX:Hypertension Kidney damage DX:Kidney damage Dementia ([facility]) DX:Dementia ( [facility]) Sleep apnea DX:Sleep apnea Esophageal reflux DX:Esophageal reflux Disorder DX:Disorder Cervicalgia DX:Cervicalgia; COMMENT: s/p ashlyn [place] Allergic rhinitis, cause unspecified 05/06/2007 DX:Allergic rhinitis, cause unspecified Nevus, non-neoplastic DX:Nevus, non-neoplastic Esophageal reflux DX:Esophageal reflux Mild chronic obstructive pul monary disease ([facility]) 03/28/2015 DX:Mild chronic obstructive pulmonary disease ([facility]) Abnormality of gait 07/04/2007 DX:Abnormali ty of gait Adjustment disorder with mix ed anxiety and depressed mood 03/29/2010 DX:Adjustment disorder with mixed anxiety and depressed mood CKD (chronic kidney disease) stage 3, GFR 30-59 ml/min ([facility]) 01/06/2012 DX:CKD (chronic kidney dise ase) stage 3, GFR 30-59 ml/min ([facility]) Cognitive disorder 02/07/2011 DX:Cognitive disorder; COMMENT: Seen with Justin Lu 01/2011: Dementia (CMS/HCC) 10/15/2012 DX:Dementia ( HCC); COMMENT: Seen with Tabitha, now on Aricept [...] Pulse 77 12/16/2024 2:06 PM EST Temperature 36.9 ??C (98.5 ??F) 12/04/2024 10:[address] Respiratory Rate 16 12/04/2024 10:51 AM EST Oxygen Saturation 98% 10/27/2024 10:25 AM EST Inhaled Oxygen Concentration - - Weight 106 kg (232 lb 9.6 oz) 12/16/2024 2:06 PM EST Height 182.9 cm (6' 0.01 ) 12/08/2024 8:57 AM ES T Body Mass Index 31.54 12/08/2024 8:57 AM EST Plan of Treatment Upcoming Encounters Date Type Department Care Team (Late st Contact Info) Description 12/22/2024 7:45 AM EDT Appointment [facility] Xray [address] [place] [phone] 01/11/2025 8:30 AM EDT Office Visit Orthopedic Surgery [facility] 250 [address] [facility] [address] [place] [phone] David Beltre DPM [address] [address] 01/26/2025 9:10 AM EDT Office Visit Pulmonolgy [facility] 175 [facility] 200 [place] [phone] Suzie Bates NP [address] [facility] [address] [place] [address] 05/11/2025 3:00 PM EDT Office Visit Nephrology - [facility] [address] [place] [address] Marcelo Roach MD [address] [facility] [address] [place] [phone] 05/27/2025 9:00 AM EDT Office Visit Adult Medicine [facility] [address] [place] [phone] Magui Pang PA [address] [place] [address] Health Maintenance Due Date Last Done Comments [...] Procedure Name Priority Date/Time Associated Diagnosis Comments XR CHEST 2 VIEWS Routine 12/04/2024 11:2 4 AM EST Asthma-COPD overlap syndrome (CMS/HCC) COPD exacerbation (CMS/HCC) Upper respiratory tract infection, unspecified type [id number], RSV, FLU A AND B QUALITATIVE RT-PCR, [...] Recently Relevant to Health Maintenance Results * XR Chest 2 Views (12/04/2024 11:24 AM EST) Anatomical Region Laterality Modality Body Radiographic Светлана ging 12/04/2024 12:0 7 PM EST Impressions 12/04/2024 1:13 PM EST No acute cardiopulmonary abnormality. -------- FINAL REPORT -------- Dictated By: Nelli Estrada Dictated Date: 12/04/2024 12:07 ET Assigned Physician: Nelli Estrada Reviewed and Electronically Signed By: Nelli Estrada Signed Date: 12/04/2024 13:13 ET Workstation ID: [id number] Transcribed By: Self Edit Transcribed Date: 12/04/2024 [...] over the right upper lung is unchanged [id number]. No focal consolidation or pulmonary edema. Pleura: No pleural effusion or pneumothorax. Heart/Mediastinum: Unchanged cardiomediastinal silhouette. Bones : No acute findings. IMPRESSION: No acute cardiopulmonary abnormality. -------- FINAL REPORT -------- Dictated By: Nelli Estrada Dictated Date: 12/04/2024 12:07 ET Assigned Physician: Nelli Estrada Reviewed and Electronically Signed By: Nelli Estrada Signed Date: 12/04/2024 13:13 ET Workstation ID: [id number] Transcribed By: Self Edit Transcribed Date: 12/04/2024 12:07 ET Magui CASTRO IMG XR PROCEDURES Final Result * [id number], RSV, Influenza A and B qualitative RT-PCR (11/19/2024 11:31 AM EST) SARS COV-2 Not Detected Not Detected LAB MOLECULAR DIAGNOSTICS METHOD 11/19/2024 11:34 PM [facility] Comment: Disclaimer: The manner in which this information is used to guide patient care is the responsibility of the healthcare provider. Testing was performed using the Alicanto Alinity m SARS-CoV-2 test. This test has [...] for Healthcare Providers can be found at: https://www.fda.gov/media/280574/download Fact sheet for Patients can be found at: https://www.fda.gov/media/245157/download Influenza A PCR Not Detected Not Detected LAB MOLECULAR DIAGNOSTICS METHOD 11/19/2024 11:34 PM [facility] Influenza B PCR Not Detected Not Detected LAB MOLECULAR DIAGNOSTICS METHOD 11/19/2024 11:34 PM [facility] RSV PCR Not Detected Not Detected LAB MOLECULAR DIAGNOSTICS METHOD 11/19/2024 11:34 PM [facility] Swab Nasopharyngeal structure / Unknown Non-blood Collection / Unknown 11/19/2024 11:31 AM EST 11/19/2024 11:31 AM EST Ronald Desai MD LAB MICROBIOLOGY - GENERAL ORDERABLES Final Result [facility] [address] [place] [address], * (ABNORMAL) Prostate specific antigen screen (10/27/2024 9:11 AM EST) Pathologist [facility] PSA 4.97(H) 0.00 - 4.00 ng/mL LAB CHEMISTRY METHOD 10/27/2024 6:18 PM EST [facility] Blood Venous blood specimen / Unknown Venipuncture / Unknown 10/27/2024 9:11 AM EST 10/27/2024 9:11 AM EST Narrative [facility] - 10/27/2024 6:18 PM EST The Siemens Advia LanternCRMaur Chemiluminescent Immunoassay is used. Results obtained with different assay methods or kits cannot be used interchangeably. Results cannot be interpreted as absolute evidence of the presence or absence of malignant disease. Ronald Desai MD LAB BLOOD ORDERABLES Final Result Performing Organization Address City/[facility]/ZIP Co de Phone Number [facility] [address] [place] [address], [place] [phone] * Thyroid stimulating hormone with reflex to free t4 and free t3 (10/27/2024 9:11 AM EST) [facility] TSH 2.60 0.40 - 4.00 mcIU/mL LAB CHEMISTRY METHOD 10/27/2024 2:58 PM EST [facility] Blood Venous blood specimen / Unknown Venipuncture / Unknown 10/27/2024 9:11 AM EST 10/27/2024 9:11 AM EST Ronald Desai MD LAB BLOOD ORDERABLES Final Result [facility] [address] [place] [address], [place] [phone] * (ABNORMAL) Lipid panel with reflex to direct LDL (10/27/2024 9:11 AM EST) [facility] Cholesterol 254(H) 0 - 200 mg/dL LAB CHEMISTRY METHOD 10/27/2024 3:28 PM [facility] Triglycerides 161(H) 0 - 150 mg/dL LAB CHEMISTRY METHOD 10/27/2024 3:28 PM [facility] HDL 59 >=40 mg/dL LAB CHEMISTRY METHOD 10/27/2024 3:28 PM [facility] LDL Calculated 163(H) 0 - 100 mg/dL LAB CHEMISTRY METHOD 10/27/2024 3:28 PM EST [facility] VLDL Cholesterol [place] 32.2 mg/dL LAB CHEMISTRY METHOD 10/27/2024 3:28 PM [facility] Non HDL Chol. (LDL+VLDL) 195(H) <145 mg/dL LAB CHEMISTRY METHOD 10/27/2024 3:28 PM [facility] Chol/HDL Ratio 4.3 0.0 - 4.4 LAB CHEMISTRY METHOD 10/27/2024 3:28 PM [facility] Blood Venous blood specimen / Unknown Venipuncture / Unknown 10/27/2024 9:11 AM EST 10/27/2024 9:11 AM EST us Ronald Desai MD LAB BLOOD ORDERABLES Final Result Performing Organization Address City/[facility]/ZIP Co de Phone Number [facility] [address] [place] [address], * Magnesium (10/27/2024 9:11 AM EST) Magnesium 2.0 1.9 - 2.6 mg/dL LAB CHEMISTRY METHOD 10/27/2024 2:56 PM [facility] Blood Venous blood specimen / Unknown Venipuncture / Unknown 10/27/2024 9:11 AM EST 10/27/2024 9:11 AM EST us Ronald Desai MD LAB BLOOD ORDERABLES Final Result [facility] [address] [place] [address], [place] [phone] * Hemoglobin A1c (10/27/2024 9:11 AM EST) [facility] Hemoglobin A1C 5.5 <6.5 % LAB CHEMISTRY METHOD 10/27/2024 9:24 PM EST [facility] Mean Bld Glu Estim. 111 mg/dL LAB CHEMISTRY METHOD 10/27/2024 9:24 PM EST [facility] Blood Venous blood specimen / Unknown Venipuncture / Unknown 10/27/2024 9:11 AM EST 10/27/2024 9:11 AM EST Ronald Desai MD LAB BLOOD ORDERABLES Final Result Performing Organization Address [facility] Co de Phone Number [facility] [address] [place] [address], [place] [phone] * Vitamin B12 (10/27/2024 9:11 AM EST) [facility] Vitamin B-12 434 250 - 900 pcg/mL LAB CHEMISTRY METHOD 10/27/2024 3:28 PM EST [facility] Blood Venous blood specimen / Unknown Venipuncture / Unknown 10/27/2024 9:11 AM EST 10/27/2024 9:11 AM EST Ronald Desai MD LAB BLOOD ORDERABLES Final Result Performing Organization Address [facility]/ZIP Co de Phone Number [facility] [address] [place] [address], [place] [phone] * (ABNORMAL) Comprehensive metabolic panel (10/27/2024 9:11 AM EST) [facility] Sodium 137 133 - 145 mmol/L LAB CHEMISTRY METHOD 10/27/2024 3:28 PM EST [facility] Potassium 4.4 3.5 - 5.5 mmol/L LAB CHEMISTRY METHOD 10/27/2024 3:28 PM [facility] Chloride 106 96 - 110 mmol/L LAB CHEMISTRY METHOD 10/27/2024 3:28 PM [facility] CO2 26 21 - 32 mmol/L LAB CHEMISTRY METHOD 10/27/2024 3:28 PM [facility] Anion Gap 5 3 - 11 LAB CHEMISTRY METHOD 10/27/2024 3:28 PM [facility] Glucose 86 70 - 100 mg/dL LAB CHEMISTRY METHOD 10/27/2024 3:28 PM [facility] BUN 24 5 - 25 mg/dL LAB CHEMISTRY METHOD 10/27/2024 3:28 PM [facility] Creatinine 1.63(H) 0.70 - 1.30 mg/dL LAB CHEMISTRY METHOD 10/27/2024 3:28 PM [facility] eGFR 46(L) >=60 mL/min/1. 73m2 LAB CHEMISTRY METHOD 10/27/2024 3:28 PM [facility] Comment:Calculation based on the??Chronic Kidney Disease Epidemiology Collaboration (CKD-EPI) equation refit??without adjustment for race. BUN/Creatinine Ratio 14.7 LAB CHEMISTRY METHOD 10/27/2024 3:28 PM [facility] Calcium 8.5 8.5 - 10.5 mg/dL LAB CHEMISTRY METHOD 10/27/2024 3:28 PM [facility] AST (SGOT) 15 10 - 42 unit/L LAB CHEMISTRY METHOD 10/27/2024 3:28 PM [facility] ALT (SGPT) 43 10 - 60 unit/L LAB CHEMISTRY METHOD 10/27/2024 3:28 PM [facility] Alkaline Phosphatase 116 42 - 121 unit/L LAB CHEMISTRY METHOD 10/27/2024 3:28 PM [facility] Total Protein 7.4 6.0 - 8.0 g/dL LAB CHEMISTRY METHOD 10/27/2024 3:28 PM EST [facility] Albumin 3.9 3.2 - 5.0 g/dL LAB CHEMISTRY METHOD 10/27/2024 3:28 PM EST [facility] Total Bilirubin 0.5 0.0 - 1.4 mg/dL LAB CHEMISTRY METHOD 10/27/2024 3:28 PM EST [facility] Blood Venous blood specimen / Unknown Venipuncture / Unknown 10/27/2024 9:11 AM EST 10/27/2024 9:11 AM EST Ronald Desai MD LAB BLOOD ORDERABLES Final Result [facility] [address] [place] [address], [place] [phone] * Injection tendon or ligament (10/20/2024 2:30 PM EST) David Gil DPM - 10/20/2024 2:30 PM EST David Beltre DPM ? 10/20/2024 ??5:57 PM Injection tendon or ligament Indications: pain Details: 25 G needle Medications: 0.5 mL lidocaine (PF) 1 %; 20 mg triamcinolone acetonide 40 mg/mL Informed Consent: ??Site: ??Foot ligament tendon David Beltre DPM IN CLINIC/BEDSIDE ORDERAB LES Final Result * Injection tendon or ligament (10/20/2024 2:30 PM EST) David Gil DPM - 10/20/2024 2:30 PM EST David Beltre DPM ? 10/20/2024 ??5:57 PM Injection tendon or ligament Indications: pain Details: 25 G needle Medications: 0.5 mL lidocaine (PF) 1 %; 20 mg triamcinolone acetonide 40 mg/mL Informed Consent: ??Site: ??Foot ligament tendon David Beltre DPM IN CLINIC/BEDSIDE ORDERAB LES Final Result * Hm Colonoscopy (04/03/2024) Colonoscopy no interpretation , abstracted Anatomical Region Laterality Modality Other Historical Provider HEALTH MAINTENANCE Final Result * Hepatitis C Screening (06/09/2007) Hepatitis C Screening abstracted Historical Provider HEALTH MAINTENANCE Final Result from Last 3 Months or Most Recently Relevant to Health Maintenance Insurance [facility] Advance Directives Documents on File Type Date Recorded 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
--- OUTSIDE RECORDS SUMMARY | 2024-12-18 11:55 | XMS_ITS | Encounter Summary ---
Author Organization [facility] Address [address] [place] [address] Care Team Providers Care Induction Brazer Name Role Phone Ronald Desai MD Primary Care Provider Encounter Details Date Type Department Care Team (Late st Contact Info) Description 07/19/2023 Scanned Document [facility] [address] [phone] Babar Cage MD [address] [place] [address] Social History Tobacco Use Types Packs/Day Years [...] on filedocumented in this encounter Care Teams Induction Brazer Relationship Specialty Start Date End Date Ronald Desai MD [address] [place] [address] PCP - General Medicine Hospitalist 07/18/23 documented as of this encounter
--- OUTSIDE RECORDS SUMMARY | 2024-12-18 11:55 | XMS_ITS | Encounter Summary ---
Author Organization [facility] Address [address] [place] [address] Care Team Providers Care Offal Icer Poultry Name Role Phone Ronald Desai MD Primary Care Provider [phone] Encounter Details Date Type Department Care Team (Late st Contact Info) Description 12/03/2024 Telephone Adult Medicine [address] [phone] Salma Canseco RN Social History Tobacco Use Types Packs/Day Years [...] as of this encounter Progress Notes * Salma Canseco RN - 12/03/2024 2:08 PM EST Pt has had cough for 2 weeks and now has developed sinus pressure , ear pain and headache no chest wall pain with deep breath and cough, denies SOB, able to speak in full sentences and has no audible wheezing, using OTC sinus meds as directed with relief, cough is non productive for Sputum, has green nasal drainage , denies fever (no temp but has had shaking chills ) c/o pain in his head , on the right side of his face and into his teeth , has ear pressure no drainage able to take PO with no difficulty, denies N/V/D, Advised home care following the cough Protocol. RN reinforced telephone consultation and advice. Reviewed with the patient the signs and symptoms to watch for that would require immediate attention. If symptoms change, worsen or increase in intensity, to call back immediately. Appointment tomorrow with Wilfredo pang documented in this encounter Plan of Treatment Upcoming Encounters Date Type Department Care Team (Late st Contact Info) Description 12/22/2024 7:45 AM EDT Appointment [facility] Xray [address] [place] [phone] 01/11/2025 8:30 AM EDT Office Visit Orthopedic Surgery - [place] [address] [phone] David Beltre DPM [address] [address] 01/26/2025 9:10 AM EDT Office Visit Pulmonolgy - [place] [address] [phone] Suzie Bates NP [address] [address] 05/11/2025 3:00 PM EDT Office Visit Nephrology - [facility] [address] [place] [address] Marcelo Roach MD [address] [address] 05/27/2025 9:00 AM EDT Office Visit Adult Medicine [address] [phone] Magui Pang PA [address] [place] [address] documented as of this encounter Visit Diagnoses Not on filedocumented in this encounter Care Teams Offal Icer Poultry Relationship Specialty Start Date End Date Ronald Desai MD [address] [place] [address] PCP - General Internal Medicine 07/16/22 documented as of this encounter
--- OUTSIDE RECORDS SUMMARY | 2024-12-18 11:55 | XMS_ITS | Encounter Summary ---
Author Organization [facility] Address [address] [place] [address] Care Team Providers Care Beef Cattle Farm Manager Name Role Phone Ronald Desai MD Primary Care Provider [phone] Encounter Details Date Type Department Care Team (Latest Contact Info) Description 12/04/2024 11:15 AM EST - 12/04/2024 11:59 PM [facility] Encounter [facility] [place] [address] [place] [address] Asthma-COPD overlap syndrome (CMS/HCC); COPD exacerbation (CMS/HCC); Upper respiratory tract infection, unspecified type Discharge Disposition: Home or Self Care Social History Tobacco Use Types Packs/Day Years [...] on file documented as of this encounter Medications at Time of Discharge albuterol HFA (PROAIR HFA ; PROVENTIL HFA ; VENTOLIN HFA) 90 mcg/actuation inhaler Inhale 2 puffs by mouth every 6 (six) hours if needed for wheezing or shortness of breath. This is a Rescue Medication; not exceed 12 inhalations/24 hrs. - Inhalation 6.7 g 3 10/27/2024 aluminum-magnesiu m hydroxide-simethi cone (Mylanta Maximum Strength) 400-400-40 mg/5 mL suspension Take 10 mL by mouth 4 (four) times a day (before meals and nightly). 900 mL 11 08/25/2024 aspirin 81 mg EC tablet Take 1 tablet (81 mg total) by mouth 1 (one) time each day. 12/05/2023 carboxymethylcell ulose (Refresh Tears) 0.5 % ophthalmic solution Administer 1 drop into affected eye(s) 3 (three) times a day if needed for dry eyes. 08/15/2017 cetirizine (ZyrTEC) 10 mg tablet Take 1 tablet (10 mg total) by mouth. 06/01/2021 cholecalciferol (VITAMIN D-3) 25 mcg (1,000 unit) tablet Take 1 tablet (1,000 Units total) by mouth 1 (one) time each day. 09/07/2022 cyclobenzaprine (FLEXERIL) 5 mg tablet Take 1 tablet (5 mg total) by mouth at bedtime as needed for muscle spasms. MAY CAUSE DROWSINESS.DONT DRIVE 30 tablet 3 10/27/2024 dicyclomine (BENTYL) 10 mg capsule Take 1 capsule (10 mg total) by mouth. ezetimibe (ZETIA) 10 mg tablet Take 1 tablet (10 mg total) by mouth 1 (one) time each day. 90 tablet 1 10/27/2024 fenofibrate (TRICOR) 145 mg tablet Take 1 tablet (145 mg total) by mouth 1 (one) time each day. 90 each 1 10/27/2024 fluticasone propion-salmetero L (ADVAIR DISKUS) 500-50 mcg/dose diskus inhaler Inhale 1 puff by mouth 2 (two) times a day. Rinse mouth with water after use to reduce aftertaste and incidence of candidiasis. Do not swallow. fluticasone propionate (FLONASE) 50 mcg/actuation nasal spray Administer 2 sprays into each nostril 1 (one) time each day. 02/19/2023 gabapentin (NEURONTIN) 100 mg capsule Take 1 capsule (100 mg total) by mouth 2 (two) times a day. 60 capsule 3 10/27/2024 hydrocortisone 1 % topical cream Apply topically 2 (two) times a day. 56 g 1 12/02/2024 ipratropium-albut Chanelle (DUONEB) 0.5-2.5 mg/3 mL nebulizer solution Inhale 3 mL by mouth. 11/20/2023 ketoconazole (NIZORAL) 2 % shampoo Apply topically 1 (one) time each day if needed. 08/06/2019 Lactobacillus acidophilus 0.5 mg (100 million cell) tablet Take 1 tablet by mouth 2 (two) times a day. 11/27/2023 lidocaine (LIDODERM) 5 % patch Place 1 patch on the skin 1 (one) time each day. Apply for no more than 12 hours in any 24 hour period. - 07/16/2022 loratadine (CLARITIN) 10 mg tablet Take 1 tablet (10 mg total) by mouth 1 (one) time each day. 11/13/2023 losartan (COZAAR) 25 mg tablet Take 1 tablet (25 mg total) by mouth 1 (one) time each day. 90 tablet 1 10/27/2024 magnesium amino acid chelate 100 mg tablet Take 1 tablet by mouth 1 (one) time each day. 12/22/2020 montelukast (SINGULAIR) 10 mg tablet Take 1 tablet (10 mg total) by mouth at bedtime. 08/21/2022 multivitamin with iron-minerals 9 mg iron/15 mL liquid Take 15 mL by mouth. pantoprazole (PROTONIX) 40 mg EC tablet Take 1 tablet (40 mg total) by mouth 2 (two) times a day. Take on empty stomach, wait 30 mins and then eat to activate the medication- before breakfast and supper 60 each 11 10/27/2024 polyethylene glycol (Gavilax) 17 gram/dose oral powder [...] for 4 days. 6 tablet 12/04/2024 5 bisacodyL (DULCOLAX) 5 mg EC tablet Take 2 tablets (10 mg total) by mouth 1 (one) time each day if needed. AT 6PM DIRECTED 5 docusate sodium (COLACE) 100 mg capsule Take 1 capsule (100 mg total) by mouth 2 (two) times a day. 12/07/2022 5 predniSONE (DELTASONE) 20 mg tablet Take 60 mg PO daily for 3 days, then take 40 mg PO daily for 3 days, then 20 mg PO daily for 3 days, then stop 18 tablet 12/04/2024 5 documented as of this encounter Discharge Disposition Disposition Code Departure Means Destination Home or Self Care documented in this encounter Plan of Treatment Upcoming Encounters Date Type Department Care Team (Late st Contact Info) Description 12/22/2024 7:45 AM EDT Appointment [facility] Xray [address] [place] [phone] 01/11/2025 8:30 AM EDT Office Visit Orthopedic Surgery - [place] [address] [phone] David Beltre DPM [address] [address] 01/26/2025 9:10 AM EDT Office Visit Pulmonolgy - [place] [address] [phone] Suzie Bates NP [address] [address] 05/11/2025 3:00 PM EDT [facility] [address] [place] [phone] Marcelo Roach MD [address] [address] 05/27/2025 9:00 AM EDT Office Visit Adult Medicine [facility] [address] [place] [address] Magui Pang PA [address] [place] [address] documented as of this encounter Procedures Procedure Name Priority Date/Time Associated Diagnosis Comments XR CHEST 2 VIEWS Routine 12/04/2024 11:2 4 AM EST Asthma-COPD overlap syndrome (CMS/HCC) COPD exacerbation (CMS/HCC) Upper respiratory tract infection, unspecified type documented in this encounter Results * XR Chest 2 [...] Signed Date: 12/04/2024 13:13 ET Workstation ID: [id number] Transcribed By: Self Edit Transcribed Date: 12/04/2024 [...] over the right upper lung is unchanged [id number]. No focal consolidation or pulmonary edema. Pleura: No pleural effusion or pneumothorax. Heart/Mediastinum: Unchanged cardiomediastinal silhouette. Bones : No acute findings. IMPRESSION: No acute cardiopulmonary abnormality. -------- FINAL REPORT -------- Dictated By: Nelli Estrada Dictated Date: 12/04/2024 12:07 ET Assigned Physician: Nelli Estrada Reviewed and Electronically Signed By: Nelli Estrada Signed Date: 12/04/2024 13:13 ET Workstation ID: [id number] Transcribed By: Self Edit Transcribed Date: 12/04/2024 12:[address] [facility] Sean Poly CASTRO IMG XR PROCEDURES Final Result documented in this encounter Visit Diagnoses Diagnosis Asthma-COPD overlap syndrome (CMS/HCC) COPD exacerbation (CMS/HCC) Obstructive chronic bronchitis with exacerbation Upper respiratory tract infection, unspecified type documented in this encounter Care Teams Beef Cattle Farm Manager Relationship Specialty Start Date End Date Ronald Desai MD [address] [place] [address] PCP - General Internal Medicine 07/16/22 documented as of this encounter
--- OUTSIDE RECORDS SUMMARY | 2024-12-18 11:55 | XMS_ITS | Encounter Summary ---
Author Organization [facility] Address [address] [place] [address] Care Team Providers Care Call Center Manager Name Role Phone Ronald Desai MD Primary Care Provider [phone] Encounter Details Date Type Department Care Team (Late Contact Info) Description 08/15/2024 Lab Requisition [facility] - Main Lab [address] [facility] [place] [phone] Rajeev Diaz MD [address] [place] [address] Dysphagia, unspecified Social History Tobacco Use Types [...] Info) Description 12/22/2024 7:45 AM EDT Appointment [facility] Xray [address] [place] [phone] 01/11/2025 8:30 AM EDT Office Visit Orthopedic Surgery [facility] [address] [phone] David Beltre, DPM [address] [phone] 01/26/2025 9:10 AM EDT Office Visit Pulmonolgy - [facility] [address] [place] [phone] Suzie Bates NP [address] [place] [address] 05/11/2025 3:00 PM EDT Office Visit [facility] - [facility] [address] [place] [address] Marcelo Roach MD [address] [place] [address] 05/27/2025 9:00 AM EDT [place] [facility] [address] [place] [phone] Magui Pang PA [address] [place] [address] documented as of this encounter Visit Diagnoses Diagnosis Dysphagia, unspecified documented in this encounter Additional Health Concerns Infection Onset Date Last Indicated Resolved Time Respiratory Rule-Out 11/19/2024 11/19/2024 025 11:34 PM EST COVID-19 Rule-Out 11/19/2024 11/19/2024 11/19/2024 11:34 PM EST documented as of this encounter Care Teams Call Center Manager Relationship Specialty Start Date End Date Ronald Desai MD [address] [place] [address] PCP - General Internal Medicine 07/16/22 documented as of this encounter
--- OUTSIDE RECORDS SUMMARY | 2024-12-18 11:55 | XMS_ITS | Encounter Summary ---
Author Organization [facility] Address [address] [place] [address] Care Team Providers Care Cra Name Role Phone Ronald Desai MD Primary Care Provider Encounter Details Date Type Department Care Team (Late st Contact Info) Description 07/19/2023 Scanned Document [facility] [address] [phone] Babar Cage MD [address] [place] [address] Social History Tobacco Use Types Packs/Day Years [...] on filedocumented in this encounter Care Teams Cra Relationship Specialty Start Date End Date Ronald Desai MD [address] [place] [address] PCP - General Medicine Hospitalist 07/18/23 documented as of this encounter
== END 2024-12-18 12:25 | disposition home or self-care (01) ==
PROVIDERS: PCP Internal Medicine; Visit Provider Physician Assistant
DX: M48.062 Spinal stenosis, lumbar region with neurogenic claudication (principal)
CPT/HCPCS: 99213

== ENCOUNTER → 2024-12-18 10:34 | Outpatient (BNVA) | payer MEDICARE, SELFPAY | PROVIDERS: PCP Internal Medicine; Visit Provider Neurological Surgery | DX: M48.062 Spinal stenosis, lumbar region with neurogenic claudication (principal) | CPT/HCPCS: 99212 ==

== ENCOUNTER 2025-01-18 10:54 | Outpatient (REF) | payer MEDICARE, SELFPAY ==
--- NOTE | ~2025-01-18 | XR_ITS ---
EXAMINATION: XR BILATERAL HIPS WITH AP PELVIS CLINICAL INFORMATION: BILATERAL HIP PAIN COMPARISON: None available. TECHNIQUE: AP and frog-leg lateral views of each hip were obtained. FINDINGS: No fracture, dislocation, or suspicious bone lesion. Normal bone mineralization. Normal alignment. Mild osteoarthrosis involving both hip joints symmetrically. There is bilateral over coverage of the posterior acetabula, findings which can be associated with pincer-type JUAN MANUEL. Soft tissues appear normal. XR/XR hips JENNIFER min 3V IMPRESSION: 1. No acute bony abnormalities. 2. Symmetric mild bilateral osteoarthrosis of the hip joints. 3. Symmetric bilateral over coverage of the posterior acetabula, findings which can be associated with pincer-type JUAN MANUEL. Electronically signed by: Chuck Cordova MD 01/19/2025 08:26 AM EDT
--- OUTSIDE RECORDS SUMMARY | 2025-01-18 13:03 | XMS_ITS | Clinical Summary ---
Author Organization [facility] Address [address] [address] Care Team Providers Care Social Service Worker Name Role Phone Unavailable Primary Care [...] of 1 - PCV) 2020 Influenza Vaccine (Season Ended) 2025 Hepatitis B Vaccine Aged Out No longe r eligible based on patient's age to complete this topic
--- OUTSIDE RECORDS SUMMARY | 2025-01-18 13:03 | XMS_ITS | Encounter Summary ---
Author Organization [facility] Address [address] [place] [address] Care Team Providers Care Fisher Lobster Name Role Phone Ronald Desai MD Primary Care Provider [phone] Encounter Details Date Type Department Care Team (Late st Contact Info) Description 07/19/2023 Scanned Document [facility] [address] [phone] Babar Cage MD [address] [place] [address] Social History Tobacco Use Types Packs/Day Years [...] on filedocumented in this encounter Care Teams Fisher Lobster Relationship Specialty Start Date End Date Ronald Desai MD PCP - General Medicine Hospitalist 07/18/23 documented as of this encounter
--- OUTSIDE RECORDS SUMMARY | 2025-01-18 13:03 | XMS_ITS | Encounter Summary ---
Author Organization [facility] Address [address] [place] [address] Phone Care Team Providers Care Accounts Receivable Analyst Name Role Phone Unavailable Primary Care Provider Unavailabl e Encounter Details Date Type Department Care Team (Late st Contact Info) Description 03/13/2023 Telephone [facility] [address] [place] [address] Lucy Coelho Social History Tobacco [...] he is a Dr. Roach PT [place]. He has one on 03/26/23 but he is checking in for a sooner appointment. PT says [place] told him to call our office. documented in this encounter Plan of Treatment Not on file documented as of this encounter Visit Diagnoses Not on filedocumented in this encounter
--- OUTSIDE RECORDS SUMMARY | 2025-01-18 13:03 | XMS_ITS | Encounter Summary ---
Author Organization [facility] Address [address] [place] [address] Care Team Providers Care Lofter Name Role Phone Ronald Desai MD Primary Care Provider [phone] Encounter Details Date Type Department Care Team (Late st Contact Info) Description 08/15/[address] [facility] - Main Lab [address] [facility] [place] [phone] Rajeev Diaz MD [address] [place] [address] Dysphagia, unspecified Social History Tobacco Use Types [...] Department Care Team (Late Contact Info) Description 01/26/2025 9:10 AM EDT Office Visit Pulmonolgy - [place] [address] [phone] Suzie Bates NP 175 [facility] [address] [place] [address] 03/15/2025 8:30 AM EDT Office Visit Orthopedic Surgery [facility] 250 175 [facility] [address] [place] [address] David Beltre, DPM [address] [place] [address] 05/06/2025 11:00 AM EDT Office Visit Adult [address] [phone] Ronald Desai MD [address] [place] [address] 05/27/2025 9:00 AM EDT Office Visit Adult [address] [phone] Magui Pang PA [address] [place] [address] 08/03/2025 3:15 PM EDT Office Visit Nephrology - [facility] [address] [place] [address] Marcelo Roach MD [address] [place] [phone] documented as of this encounter Visit Diagnoses Diagnosis Dysphagia, unspecified documented in this encounter Additional Health Concerns Infection Onset Date Last Indicated Resolved Time Respiratory Rule-Out 11/19/2024 11/19/2024 025 11:34 PM EST COVID-19 Rule-Out 11/19/2024 11/19/2024 11/19/2024 11:34 PM EST documented as of this encounter Care Teams Lofter Relationship Specialty Start Date End Date Ronald Desai MD [address] [place] [address] PCP - General Internal Medicine 07/16/22 documented as of this encounter
--- OUTSIDE RECORDS SUMMARY | 2025-01-18 13:03 | XMS_ITS | Continuity of Care Document ---
Author Organization [facility] ter Address [address] [place] [address]- Care Team Providers Care Sheet Rock Applier Name Role Phone Not on Staff, PCP Primary Care Physician Unavail able Encounter 01/14/25 - 01/15/25 [facility] [address] [place] [id number] Attending Physician: Not on Staff, Attending MD Referring Physician: Not on Staff, Referring MD Encounter Type: [facility]RI Allergies, Adverse Reactions, Alerts Substance Criticality Severity Reaction Reaction Severity Status Other Environmental Allergy sneezing Active Medications Aerochamber See Instructions, # 1 applicator, Maintenance, Use with MDI's, 11/12/14 8:58:49 AM EST, Compound Start Date: 11/12/14 Status: Ordered Quantity: 1.0 Unit: applicator Repeat number: 1 cyclobenzaprine 10 mg oral tablet See Instructions, PRN for spasm, 1 tablet By Mouth at bedtime prn, 0 Refills, Maintenance, 05/19/14 10:31:20 AM EDT, Tablet Start Date: 05/19/14 Status: Ordered Repeat number: 1 donepezil 5 mg oral tablet 1 tablet = 5 mg, By Mouth, Daily at bedtime, 0 Refills, Maintenance, 09/26/11 9:44:33 AM EST Start Date: 09/26/11 Status: Ordered Repeat number: 1 fenofibrate 200 mg oral capsule 1 capsule, By Mouth, Daily, # 30 capsule, 0 Refills, 11/30/09 2:29:36 PM EST, Capsule Start Date: 11/30/09 Status: Ordered Quantity: 30.0 Unit: capsule Repeat number: 1 Flonase 1 sprays, Daily, 0 Refills, Soft Stop, 11/10/09 3:25:07 PM EST Start Date: 11/10/09 Stop Date: 12/10/09 Status: Ordered Repeat number: 1 hydrocortisone 2.5% topical cream 1 application, Topically, 3 times a day, # 30 Gm, 0 Refills, Maintenance, 08/10/20 9:20:00 AM EDT, Cream Start Date: 08/10/20 Status: Ordered Quantity: 30.0 Unit: g Repeat number: 1 lovastatin 20 mg oral tablet 1 tablet = 20 mg, By Mouth, Daily, at bedtime, # 30 tablet, 0 Refills, Maintenance, 05/19/14 10:30:49AM EDT, Tablet Start Date: 05/19/14 Status: Ordered Quantity: 30.0 Unit: tablet Repeat number: 1 Multivitamin 1 tablet, By Mouth, Daily, 0 Refills, Maintenance, 09/26/11 9:45:44 AM EST Start Date: 09/26/11 Status: Ordered Repeat number: 1 pantoprazole 40 mg oral enteric coated tablet 1 tablet = 40 mg, By Mouth, Daily, 0 Refills, Maintenance, 09/26/11 9:44:50 AM EST Start Date: 09/26/11 Status: Ordered Repeat number: 1 ProAir HFA 90 mcg/inh inhalation aerosol with adapter 1 puffs, Inhalation, 4 times a day, PRN for wheezing, # 8.5 Gm, 0 Refills, Maintenance, 05/19/14 10:32:07 AM EDT, Aerosol Start Date: 05/19/14 Status: Ordered Quantity: 8.5 Unit: g Repeat number: 1 Qvar 80 mcg/inh inhalation aerosol with adapter 2 puffs, Inhalation, 2 times a day, # 1 each, 11 Refills, Maintenance, 11/12/14 9:00:13 AM EST, [facility]/pharmacy #[id number], 2 puffs Inhalation 2 times a day Start Date: 11/12/14 Status: Ordered Quantity: 1.0 Unit: each Repeat number: 12 rosuvastatin 20 mg oral tablet 1 tablet = 20 mg, By Mouth, Daily, # 30 tablet, 0 Refills, Maintenance, 08/10/20 9:21:00 AM EDT, Tablet Start Date: 08/10/20 Status: Ordered Quantity: 30.0 Unit: tablet Repeat number: 1 Vitamin B12 0 Refills, Maintenance, 08/10/20 9:21:00 AM EDT Start Date: 08/10/20 Status: Ordered Repeat number: 1 Vitamin D3 1000 intl units oral tablet 1 tablet = 1,000 International_Units, By Mouth, Daily, # 30 tablet, 0 Refills, Maintenance, 05/19/14 10:31:52 AM EDT, Tablet Start Date: 05/19/14 Status: Ordered Quantity: 30.0 Unit: tablet Repeat number: 1 Zinc = 140 mg, By Mouth, Daily, 0 Refills, Maintenance, 08/10/20 9:21:00 AM EDT Start Date: 08/10/20 Status: Ordered Repeat number: 1 Problem List Condition Confirmation Course Effective Dates Status Health [facility] Informant Cervical spinal stenosis Confirmed Active Chronic kidney disease stage 3 Confirmed Active Results Radiology Reports * Exam Date Time Procedure Performing Provider Status 01/14/25 6:29 PM MRI Pelvis W/O Contrast (Verified) Notes: (MRI Pelvis W/O Contrast) Reason For Exam: Elevated prostate specific antigen [PSA];Elevated prostate specific antigen [PSA] RESULT: MRI Pelvis W/O Contrast [facility] VISIT NUMBER :[id number] Patient Name: Aliyah Saunders Date of : 1955 Date of Exam: 01-14-2025 Referring Physician: Fareed Jordan [facility], [place] [address] Exam: MR Prostate (C-) CPT 19514 Room Description: [facility] 3T MRI MR Prostate (C-) CPT 04180 HISTORY: 69 years old male with rising PSA. Prostate biopsy performed in 2023 negative for cancer. TECHNIQUE: Noncontrast and contrast-enhanced MRI of the prostate gland was intended in a 3T MRI unit utilizing a body matrix coil and PROSTATE PROTOCOL. However the patient was unable to finish the examination due to claustrophobia. Sagittal and axial T2-weighted images and DWI images were obtained only. IV contrast was not administered. Postprocessing on an independent workstation included creation of a 3D rotational prostate segmentation volume analysis, 3D lesion analysis, subtraction images, multiplanar reformatted images, wash-in and wash-out maps as well as computer aided detection (CAD) [employer] software. Findings are reported using Prostate Imaging Reporting and Data System (PI-RADS) version 2.1. COMPARISON: Prostate MRI 08/08/2023. FINDINGS: The prostate is enlarged and measures 4.7 x 5.4 x 4 cm. 3D processing calculated prostate volume is 49 cc , previously 48 cc. CENTRAL ZONE: No focal lesion. PERIPHERAL ZONE: T2-weighted images not obtained.: No suspicious focal lesion. TRANSITION ZONE: Moderate transition zone enlargement with bilateral T2 hyperintense as well as T2 hypointense well circumscribed nodules, with the typical organized chaos appearance of benign prostatic hyperplasia. No suspicious focal lesion. SEMINAL VESICLES: The seminal vesicles are normal. LYMPH NODES: No enlarged pelvic or inguinal lymph nodes. VESSELS: Major pelvic vessels demonstrate normal enhancement. URINARY BLADDER: Unremarkable. PELVIS PERITONEAL CAVITY: No free fluid. COLON AND RECTUM: Mild diverticulosis of the sigmoid colon without acute diverticulitis. BONES AND SOFT TISSUES: No suspicious osseous lesion. Small LEFT hip joint effusion. Mild to moderate you have changes in the symphysis pubis. Small to moderate bilateral inguinal hernias containing only fat. IMPRESSION: 1. The patient terminated the examination prematurely and therefore T1-weighted images and postcontrast images were not obtained. However the study still has diagnostic value. No multiparametric MRI evidence of clinically significant prostate cancer. PI-RADS v2.1 Category 1: Very Low (Clinically significant cancer is highly unlikely to be present). 2. No evidence of adenopathy, capsule, or seminal vesicle invasion. No suspicious osseous lesion. 3. Moderate prostatic enlargement due to BPH. 3D processing calculated prostate volume is 49 cc, unchanged. REFERENCE: PI-RADS Version 2.1 Assessment Categories: Category 1: Very low - Clinically significant cancer is highly unlikely. Category 2: Low - Clinically significant cancer is unlikely. Category 3: Intermediate - Clinically significant cancer is equivocal. Category 4: High - Clinically significant cancer is likely. Category 5: Very High - Clinically significant cancer is highly likely. PI-RADS Version 2.1 Definition of Clinically Significant Cancer: Tumor with a Decatur score of 7 or more (either 4 + 3 or 3 + 4 with a prominent Decatur 4 com?ponent) and/or volume greater than 0.5 cm3 and/or extraprostatic extension. Electronically Signed By: Philip Summers MD Dictated By: Not on Staff , CARLOS STATON Dictated Date/Time: 01/15/25 6:16 pm Reviewed By: Not on Staff , CARLOS STATON Signed By: Not on Staff , CARLOS STATON Signed Date/Time: 01/15/25 6:16 pm Transcribed By: TS Transcribed Date/Time: 01/15/25 6:16 pm Social History Social History Type Response Smoking Status Never smoker; Tobacc o user in household: No entered on: 05/19/14 Sex Sex Representation Male (finding) Patient Care team information Care Team Personnel Name: Not on Staff, PCP Position: S Physician (General Medicine) Member Role: PCP Care Team Related Persons Name: FOZIA SINCLAIR Name: LIONEL SAUNDERS Name: DEANNE SAUNDERS Insurance Providers Guarantor name: ALIYAH SAUNDERS Health Plan Information #: 1 Payer: [facility] MEDICARE ADV HMO Member Number: NA Policy Number: NA Group Number: NA
--- OUTSIDE RECORDS SUMMARY | 2025-01-18 13:03 | XMS_ITS | Clinical Summary ---
Author Organization [facility] Address [address] [place] [address] Phone Care Team Providers Care Lining Layer Name Role Phone Ronald Desai MD Primary Care Provider Allergies Active Allergy Reactions Criticality Noted Date Comments House Dust Mite High 10/25/2009 Other Reaction(s): Runny Nose/Rhinitis Pravastatin 01/28/2023 Other Reaction(s): UNKNOWN Medications zinc gluconate 50 mg tablet Take 1 capsule by mouth 1 (one) time each day. Active carboxymethylce llulose (Refresh Tears) 0.5 % ophthalmic solution Administer 1 drop into affected eye(s) 3 (three) times a day if needed for dry eyes. 7 Active cholecalciferol (VITAMIN D-3) 25 mcg (1,000 unit) tablet Take 1 tablet (1,000 Units total) by mouth 1 (one) time each day. 2 Active fluticasone propionate (FLONASE) 50 mcg/actuation nasal spray Administer 2 sprays into each nostril 1 (one) time each day. 3 Active ipratropium-alb uteroL (DUONEB) 0.5-2.5 mg/3 mL nebulizer solution Inhale [...] liquid Take 15 mL by mouth. Active loratadine (CLARITIN) 10 mg tablet Take 1 tablet (10 mg total) by mouth 1 (one) time each day. 4 Active sodium chloride (OCEAN) 0.65 % nasal spray Administer 1 spray into each nostril 2 (two) times a day if needed for congestion. needed for Other (nasal dryness or congestion, with use of CPAP Active aluminum-magnes ium hydroxide-simet hicone (Mylanta Maximum Strength) 400-400-40 mg/5 mL suspension Take 10 mL by mouth 4 (four) times a day (before meals and nightly). 900 mL 11 4 Active fluticasone propion-salmete roL (ADVAIR DISKUS) 500-50 mcg/dose diskus inhaler Inhale [...] as needed for muscle spasms. MAY CAUSE DROWSINESS.DON T DRIVE 30 tablet 3 5 Active fenofibrate (TRICOR) 145 mg tablet Take 1 tablet (145 mg total) by mouth 1 (one) time each day. 90 each 1 5 Active losartan (COZAAR) 25 mg tablet [...] (two) times a day. 60 capsule 3 5 Active pantoprazole (PROTONIX) 40 mg EC tablet Take 1 tablet (40 mg total) by mouth 2 (two) times a day. Take on empty stomach, wait 30 mins and then eat to activate the medication- before breakfast and supper 60 each 11 5 Active hydrocortisone 1 % topical cream Apply topically 2 (two) times a day. 56 g 1 5 Active tamsulosin (FLOMAX) 0.4 mg 24 hr capsule Take 1 capsule (0.4 mg total) by mouth at bedtime. 5 Active polyethylene glycol (Gavilax) 17 gram/dose oral powder Take 17 g by mouth 1 (one) time each day. PLEASE SEE ATTACHED FOR DETAILED DIRECTIONS 1530 g 1 5 Active polyethylene glycol (Gavilax) 17 gram/dose oral powder Take 17 g by mouth. PLEASE SEE ATTACHED FOR DETAILED DIRECTIONS 01/05/20 25 Discontin ued(Reord er) Lactobacillus acidophilus 0.5 mg (100 million cell) tablet Take 1 tablet by mouth 2 (two) times a day. 4 01/05/20 25 Discontin ued(Expir ed) Active Problems Problem Noted Date Diagnosed Date [...] outlined in detailed above. He follows with hotel service supervisor and is due to repeat a sleep study as he has known sleep apnea which is untreated. He also has history of COPD and uses inhalers. Patient encouraged to follow-up with his hotel service supervisor regularly. Heart murmur 04/19/2022 Overview (12/18/2023): Last [...] disease 01/06/2012 Sleep apnea 06/01/2011 Overview (12/18/2023): [facility] Home Sleep Apnea Test: Date 11/06/2022; [...] Encounters Date Type Department Care Team Description 01/11/2025 8:30 AM EDT Office Visit Orthopedic Surgery - [place] [address] [place] [address] [address] [place] [address] David Beltre, AYDE Claudication (CMS/HCC) (Primary Dx); Plantar fascial fibromatosis; Ingrowing nail; Pain in toe of left foot; Pain in toe of right foot; Difficulty walking; Hammer toe of left foot; Acquired hammer toe of right foot; Dermatophytosis of nail; Equinus contracture of ankle 01/08/2025 2:00 PM EDT Office Visit Gastroenterology - [place] [address] [address] [facility] 200 [place] [phone] Tai Lambert PA Esophageal dysmotility (Primary Dx); Gastroesophageal reflux disease without esophagitis; H/O cervical spine surgery; Rectal bleeding 01/04/2025 9:15 AM EDT Office Visit [address] [phone] Ronald Desai MD Rectal bleeding (Primary Dx) 12/25/[address] [phone] Ronald Desai MD Hemorrhoids 12/22/2024 7:14 AM EDT - 12/22/2024 11:59 PM EDT Hospital [facility] Xray [address] [place] [phone] Dysphagia, unspecified type; Gastroesophageal reflux disease with esophagitis without hemorrhage; Globus sensation Discharge Disposition: Home or Self Care 12/16/2024 2:00 PM EST Office Visit Nephrology [address] [phone] Marcelo Roach MD Stage 3a chronic kidney disease (CMS/HCC) (Primary Dx); Cervical radiculopathy; Mixed hyperlipidemia; 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, stage 1 through stage 4 or unspecified chronic kidney disease, without heart failure 12/09/2024 Telephone Adult [address] [phone] Ronald Desai MD dryness throat; dry nose 12/08/2024 9:15 AM EST Office Visit Orthopedic Surgery - [place] 250 175 [facility] 250 [place] [phone] David Beltre, DPM Plantar fascial fibromatosis (Primary Dx); Equinus contracture of ankle; Ingrowing nail; Hammer toe of left foot; Acquired hammer toe of right foot 12/04/2024 11:15 AM EST - 12/04/2024 11:59 PM EST Hospital Encounter [address] [phone] Asthma-COPD overlap syndrome (CMS/HCC); COPD exacerbation (CMS/HCC); Upper respiratory tract infection, unspecified type Discharge Disposition: Home or Self Care 12/04/2024 11:15 AM EST Office Visit Adult [address] [phone] Magui Pang PA Asthma-COPD overlap syndrome (CMS/HCC) (Primary Dx); COPD exacerbation (CMS/HCC); Upper respiratory tract infection, unspecified type 12/03/2024 Telephone Adult [address] [phone] Salma Canseco RN 11/19/2024 11:00 AM EST Office Visit Adult [address] [phone] Ronald Desai MD Viral upper respiratory tract infection (Primary Dx); Asthma-COPD overlap syndrome (CMS/HCC) 11/03/2024 Telephone Adult [address] [phone] Ronald Desai MD call back 10/27/2024 11:00 AM EST Office Visit Gastroenterology [facility] 175 [facility] 175 [facility] 200 [place] [phone] Tai Lambert PA Dysphagia, unspecified type (Primary Dx); Gastroesophageal reflux disease with esophagitis without hemorrhage; Globus sensation 10/27/2024 8:00 AM EST Office Visit Adult [address] [phone] Ronald Desai MD Primary hypertension (Primary Dx); Mixed hyperlipidemia; Chronic obstructive pulmonary disease, unspecified COPD type (CMS/HCC); Obstructive sleep apnea syndrome; Gastroesophageal reflux disease without esophagitis; Stage 3a chronic kidney disease (CMS/HCC); Lumbar radiculopathy; S/P cervical spinal fusion; Cognitive impairment; Muscle twitching; Screening for prostate cancer; Screening for thyroid disorder; Elevated PSA 10/27/2024 Telephone Orthopedic Surgery [facility] [address] [phone] David Beltre DPM Foot Pain 10/22/2024 Telephone Orthopedic Surgery [facility] [address] [phone] David Beltre DPM pain after cortisone left foot 10/20/2024 2:30 PM EST Office Visit Orthopedic Surgery [facility] [address] [phone] David Beltre DPM Acquired hammer toe of right foot (Primary Dx); Hammer toe of left foot; Plantar fascial fibromatosis; Equinus contracture of ankle; Dermatophytosis of nail; Pain in toe of right foot; Pain in toe of left foot; Difficulty walking from Last 3 Months Immunizations Name Administration [...] HISTORICAL SHOULDER SURGERY NASAL SEPTUM SURGERY PROCEDURE: IN SEPTOPLASTY/SUBMUCOUS RESECJ W/WO CARTILAGE GRF UPPER GASTROINTESTINAL ENDOSCOPY 07/28/2009 PROCEDURE: IN UPPER GI ENDOSCOPY PERFORMED; COMMENT: R/o Laurent's esophagus-biopsy:mild chronic inflammation, mild gastritis-biopsy:gastritis (HPylori+), normal duodenum-biopsy:Nl HERNIA REPAIR PROCEDURE: HISTORICAL HERNIA REPAIR/UMB; COMMENT: dr. mcneil HERNIA REPAIR 10/29/2018 PROCEDURE: REPAIR UMBILICAL HERNIA; COMMENT: Dr. Mcneil Medical History Medical History Date Comments Mental disorder DX:Mental disord er GERD (gastroesophageal reflu x disease) DX:GERD (gastroesophageal re flux disease) COPD (chronic obstructive pu lmonary disease) ([facility]) DX:COPD (chronic obstructive pulmonary disease) ([facility]) Hypertension DX:Hypertension Kidney damage DX:Kidney damage Dementia ([facility]) DX:Dementia ( [facility]) Sleep apnea DX:Sleep apnea Esophageal reflux DX:Esophageal reflux Disorder DX:Disorder Cervicalgia DX:Cervicalgia; COMMENT: s/p Dr. Ellis , bone spur Allergic rhinitis, cause unspecified 05/06/2007 DX:Allergic rhinitis, cause unspecified Nevus, non-neoplastic DX:Nevus, non-neoplastic Esophageal reflux DX:Esophageal reflux Mild chronic obstructive pul monary disease ([facility]/HCC) 03/28/2015 DX:Mild chronic obstructive pulmonary disease (HCC) Abnormality of gait 07/04/2007 DX:Abnormali ty of gait Adjustment disorder with mix ed anxiety and depressed mood 03/29/2010 DX:Adjustment disorder with mixed anxiety and depressed mood CKD (chronic kidney disease) stage 3, GFR 30-59 ml/min (CMS/HCC) 01/06/2012 DX:CKD (chronic kidney dise ase) stage 3, GFR 30-59 ml/min (HCC) Cognitive disorder 02/07/2011 DX:Cognitive disorder; COMMENT: Seen [...] Sign Reading Time Taken Comments Blood Pressure 140/66 01/08/2025 2:07 PM EDT Pulse 69 01/08/2025 2:07 PM EDT Temperature 36.5 ??C (97.7 ??F) 01/04/2025 8:48 AM ED T Respiratory Rate 18 01/04/2025 8:48 AM EDT Oxygen Saturation 98% 10/27/2024 10:25 AM EST Inhaled Oxygen Concentration - - Weight 106 kg (234 lb) 01/08/2025 2:07 PM EDT Height 182.9 cm (6') 01/08/2025 2:07 PM EDT Body Mass Index 31.74 01/08/2025 2:07 PM EDT Plan of Treatment Upcoming Encounters Date Type Department Care Team (Late st Contact Info) Description 01/26/2025 9:10 AM EDT Office Visit Pulmonolgy - [place] 175 [facility] [address] [place] [phone] Suzie Bates NP [address] [facility] [address] [place] [address] 03/15/2025 8:30 AM EDT Office Visit Orthopedic Surgery - [place] 250 175 [facility] 250 [place] [address] David Beltre, DPM [address] [phone] 05/06/2025 11:00 AM EDT Office Visit Adult [address] [phone] Ronald Desai MD [address] [place] [address] 05/27/2025 9:00 AM EDT Office Visit Adult [address] [phone] Magui Pang PA [address] [place] [phone] 08/03/2025 3:15 PM EDT Office Visit Nephrology - [address] [phone] Marcelo Roach MD [address] [place] [address] [place] [address] Health Maintenance Due Date Last Done Comments Hepatitis A Vaccines (1 of 2 - Risk 2-dose series) 1974 Hepatitis B Vaccines (1 of 3 - Risk 3-dose series) 2015 RSV Immunization Adult Patients (1 - Risk 60-74 years 1-dose series) [...] Procedure Name Priority Date/Time Associated Diagnosis Comments CBC WITH AUTO DIFFERENTIAL Routine 01/04/2025 9:57 AM EDT Rectal bleeding CBC AND DIFFERENTIAL Routine 01/04/2025 9:57 AM EDT Rectal bleeding XR ESOPHAGRAM Routine 12/22/2024 8:04 AM EDT Dysphagia, unspecified type Gastroesophageal reflux disease with esophagitis without hemorrhage Globus sensation XR CHEST 2 VIEWS Routine 12/04/2024 11:2 4 AM EST Asthma-COPD overlap syndrome (CMS/HCC) COPD exacerbation (CMS/HCC) Upper respiratory tract infection, unspecified type [id number], RSV, FLU A AND B QUALITATIVE RT-PCR, [...] 10/20/2024 2:30 PM EST Plantar fascial fibromatosis HM COLONOSCOPY Routine 04/03/2024 HEPATITIS C SCREENING Routine 06/09/2007 from Last 3 Months or Most Recently Relevant to Health Maintenance Results * (ABNORMAL) CBC auto differential (01/04/2025 9:57 AM EDT) WBC 8.5 4.8 - 10.8 K/mcL LAB HEMETOLOGY METHOD 01/04/2025 12:40 PM EDT [facility] RBC 4.70 4.50 - 5.50 M/mcL LAB HEMETOLOGY METHOD 01/04/2025 12:40 PM EDT [facility] Hemoglobin 14.0 13.5 - 17.5 g/dL LAB HEMETOLOGY METHOD 01/04/2025 12:40 PM EDT [facility] Hematocrit 42.0 42.0 - 54.0 % LAB HEMETOLOGY METHOD 01/04/2025 12:40 PM EDT [facility] MCV 89.6 79.0 - 98.0 FL LAB HEMETOLOGY METHOD 01/04/2025 12:40 [facility] MCH 29.9 27.0 - 32.0 pcg LAB HEMETOLOGY METHOD 01/04/2025 12:40 PM EDT [facility] MCHC 33.3 32.0 - 37.0 g/dL LAB HEMETOLOGY METHOD 01/04/2025 12:40 PM EDT [facility] RDW 14.6 11.0 - 15.0 % LAB HEMETOLOGY METHOD 01/04/2025 12:40 PM EDT [facility] Platelets 264 130 - 400 K/mcL LAB HEMETOLOGY METHOD 01/04/2025 12:40 PM EDT [facility] MPV 10.3 7.0 - 11.0 FL LAB HEMETOLOGY METHOD 01/04/2025 12:40 [facility] NRBC 0.0 <1.0 % LAB HEMETOLOGY METHOD 01/04/2025 12:40 [facility] NRBC Absolute 0.00 <0.10 K/mcL LAB HEMETOLOGY METHOD 01/04/2025 12:40 PM EDT [facility] Neutrophils Relative 60.7 % LAB HEMETOLOGY METHOD 01/04/2025 12:40 [facility] Lymphocytes Relative 28.2 % LAB HEMETOLOGY METHOD 01/04/2025 12:40 PM [facility] Monocytes Relative 8.4 % LAB HEMETOLOGY METHOD 01/04/2025 12:40 PM [facility] Eosinophils Relative 0.7 % LAB HEMETOLOGY METHOD 01/04/2025 12:40 PM EDT [facility] Basophils Relative 0.8 % LAB HEMETOLOGY METHOD 01/04/2025 12:40 PM [facility] Immature Granulocytes Relative 1.2 % LAB HEMETOLOGY METHOD 01/04/2025 12:40 PM [facility] Neutrophils Absolute 5.13 1.50 - 7.00 K/mcL LAB HEMETOLOGY METHOD 01/04/2025 12:40 PM EDT [facility] Lymphocytes Absolute 2.38 1.00 - 5.00 K/mcL LAB HEMETOLOGY METHOD 01/04/2025 12:40 PM EDT [facility] Monocytes Absolute 0.71 0.20 - 1.00 K/mcL LAB HEMETOLOGY METHOD 01/04/2025 12:40 PM EDT [facility] Eosinophils Absolute 0.06 0.00 - 0.50 K/mcL LAB HEMETOLOGY METHOD 01/04/2025 12:40 PM EDT [facility] Basophils Absolute 0.07 0.00 - 0.20 K/mcL LAB HEMETOLOGY METHOD 01/04/2025 12:40 PM EDT [facility] Immature Granulocytes Absolute 0.10(H) 0.00 - 0.03 K/mcL LAB HEMETOLOGY METHOD 01/04/2025 12:40 PM EDT [facility] Blood Venous blood specimen / Unknown Venipuncture / Unknown 01/04/2025 9:57 AM EDT 01/04/2025 9:57 AM EDT Ronald Desai MD LAB BLOOD ORDERABLES Final Result [facility] [address] [place] [address], * XR Esophagram (12/22/2024 8:04 AM EDT) Anatomical Region Laterality Modality Head and Neck Radiographic Светлана ging 12/22/2024 9:58 AM EDT Impressions 12/22/2024 11:57 AM EDT 1. Mild esophageal dysmotility, likely age-appropriate. 2. Laryngeal penetration with question of very small amounts of silent aspiration on rapid sequence swallowing of thin barium. Extensive cervical instrumentation with fusion and straightening. -------- FINAL REPORT -------- Dictated By: Dimple Guerrero Dictated Date: 12/22/2024 09:58 ET Assigned Physician: Kofi Pimentel Reviewed and Electronically Signed By: Kofi Pimentel Signed Date: 12/22/2024 11:57 ET Workstation ID: [id number] Transcribed By: Self Edit Transcribed Date: 12/22/2024 10:13 ET Resident/PA/NETWORKING SPECIALIST: Dimple Guerrero Narrative 12/22/2024 11:57 AM EDT FINDINGS: Double contrast esophagram performed. COMPARISON: None HISTORY: Patient is a 69 yo M with history of dysphagia, globus sensation. Humanities Division Chair radiographs: 1 view chest radiograph demonstrates mediastinal and cardiac contours within normal limits. Calcified nodule periphery right upper lung correlates to a calcified granuloma demonstrated on chest CT 11/12/2023. Lungs are otherwise clear bilaterally. Costophrenic angles are sharp. Nipple shadow on the right. 1 view soft tissue neck demonstrates no prevertebral soft tissue masses, airway is widely patent. There are surgical hardware noted. Discectomy with interbody fusion from C3 through C7. Screws through the posterior elements C5, C6 and C7 with bilateral stabilizing rods one of which spans 3 levels one of which spans 2 levels. Straightening of the expected lordosis. Effervescent crystals were administered orally. Thick and thin barium were administered orally under fluoroscopic control. Pharyngoesophagram: Rapid sequence imaging of the hypopharynx during swallowing demonstrates prompt initiation of swallowing. There is normal soft palate elevation. There is laryngeal penetration with question of very small amounts of silent aspiration. There is minimal residual in the vallecula and in the piriform sinuses. Thoracic esophagus: Mild esophageal dysmotility. Normal distensibility, and mucosal pattern without evidence of ulceration, stricture or mass formation. Hiatal hernia: None Reflux: Unable to elicit 13mm Barium pill: Swallowed without difficulty. Prompt passage of pill from the esophagus into the stomach. DAP: 503.5 Gycm^2 Procedure Note Kofi Pimentel MD - 12/22/2024 FINDINGS: Double contrast esophagram performed. COMPARISON: None HISTORY: Patient is a 69 yo M with history of dysphagia, globus sensation. Humanities Division Chair radiographs: 1 view chest radiograph demonstrates mediastinal andcardiac contours within normal limits. Calcified nodule periphery rightupper lung correlates to a calcified granuloma demonstrated on chest CT11/12/2023. Lungs are otherwise clear bilaterally. Costophrenic angles aresharp. Nipple shadow on the right. 1 view soft tissue neck demonstrates no prevertebral soft tissue masses,airway is widely patent. There are surgical hardware noted. Discectomywith interbody fusion from C3 through C7. Screws through the posteriorelements C5, C6 and C7 with bilateral stabilizing rods one of which spans3 levels one of which spans 2 levels. Straightening of the expected lordosis. Effervescent crystals were administered orally. Thick and thin barium wereadministered orally under fluoroscopic control. Pharyngoesophagram: Rapid sequence imaging of the hypopharynx duringswallowing demonstrates prompt initiation of swallowing. There is normalsoft palate elevation. There is laryngeal penetration with question ofvery small amounts of silent aspiration. There is minimal residual in thevallecula and in the piriform sinuses. Thoracic esophagus: Mild esophageal dysmotility. Normal distensibility,and mucosal pattern without evidence of ulceration, stricture or massformation. Hiatal hernia: None Reflux: Unable to elicit 13mm Barium pill: Swallowed without difficulty. Prompt passage of pillfrom the esophagus into the stomach. DAP: 503.5 Gycm^2 IMPRESSION: 1. Mild esophageal dysmotility, likely age-appropriate. 2. Laryngeal penetration with question of very small amounts of silentaspiration on rapid sequence swallowing of thin barium. Extensive cervical instrumentation with fusion and straightening. -------- FINAL REPORT -------- Dictated By: Dimple Guerrero Dictated Date: 12/22/2024 09:58 ET Assigned Physician: Kofi Pimentel Reviewed and Electronically Signed By: Kofi Pimentel Signed Date: 12/22/2024 11:57 ET Workstation ID: [id number] Transcribed By: Self Edit Transcribed Date: 12/22/2024 10:13 ET Resident/PA/NETWORKING SPECIALIST: Dimple Guerrero Tai CASTRO IMG FLUOROSCOPY PROCEDURES Aylin l Result * XR Chest 2 Views (12/04/2024 11:24 AM EST) Anatomical Region Laterality Modality Body Radiographic Светлана ging 12/04/2024 12:0 7 PM EST Impressions 12/04/2024 1:13 PM EST No acute cardiopulmonary abnormality. -------- FINAL REPORT -------- Dictated By: Nelli Estrada Dictated Date: 12/04/2024 12:07 ET Assigned Physician: Nelli Estrada Reviewed and Electronically Signed By: Nelli Estrada Signed Date: 12/04/2024 13:13 ET Workstation ID: [id number] Transcribed By: Self Edit Transcribed Date: 12/04/2024 [...] over the right upper lung is unchanged [id number]. No focal consolidation or pulmonary edema. Pleura: No pleural effusion or pneumothorax. Heart/Mediastinum: Unchanged cardiomediastinal silhouette. Bones : No acute findings. IMPRESSION: No acute cardiopulmonary abnormality. -------- FINAL REPORT -------- Dictated By: Nelli Estrada Dictated Date: 12/04/2024 12:07 ET Assigned Physician: Nelli Estrada Reviewed and Electronically Signed By: Nelli Estrada Signed Date: 12/04/2024 13:13 ET Workstation ID: [id number] Transcribed By: Self Edit Transcribed Date: 12/04/2024 12:07 ET [facility] Jennifer Sean Poly CASTRO IMG XR PROCEDURES Final Result * [id number], RSV, Influenza A and B qualitative RT-PCR (11/19/2024 11:31 AM EST) SARS COV-2 Not Detected Not Detected LAB MOLECULAR DIAGNOSTICS METHOD 11/19/2024 11:34 PM [facility] Comment: Disclaimer: The manner in which this information is used to guide patient care is the responsibility of the healthcare provider. Testing was performed using the Lontranity m SARS-CoV-2 test. This test has been [...] for Healthcare Providers can be found at: https://www.fda.gov/media/275433/download Fact sheet for Patients can be found at: https://www.fda.gov/media/568793/download Influenza A PCR Not Detected Not Detected LAB MOLECULAR DIAGNOSTICS METHOD 11/19/2024 11:34 PM [facility] Influenza B PCR Not Detected Not Detected LAB MOLECULAR DIAGNOSTICS METHOD 11/19/2024 11:34 PM [facility] RSV PCR Not Detected Not Detected LAB MOLECULAR DIAGNOSTICS METHOD 11/19/2024 11:34 PM [facility] Swab Nasopharyngeal structure / Unknown Non-blood Collection / Unknown 11/19/2024 11:31 AM EST 11/19/2024 11:31 AM EST Ronald Desai MD LAB MICROBIOLOGY - GENERAL ORDERABLES Final Result [facility] [address] [place] [address], * (ABNORMAL) Prostate specific antigen screen (10/27/2024 9:11 AM EST) PSA 4.97(H) 0.00 - 4.00 ng/mL LAB CHEMISTRY METHOD 10/27/2024 6:18 PM EST [facility] Blood Venous blood specimen / Unknown Venipuncture / Unknown 10/27/2024 9:11 AM EST 10/27/2024 9:11 AM EST Narrative [facility] - 10/27/2024 6:18 PM EST The Siemens Advia Centaur Chemiluminescent Immunoassay is used. Results obtained with different assay methods or kits cannot be used interchangeably. Results cannot be interpreted as absolute evidence of the presence or absence of malignant disease. us Ronald Desai MD LAB BLOOD ORDERABLES Final Result Performing Organization Address [facility]/ZIP Co de Phone Number [facility] [address] [place] [address], [place] [phone] * Thyroid stimulating hormone with reflex to free t4 and free t3 (10/27/2024 9:11 AM EST) Pathologist [facility] [place] TSH 2.60 0.40 - 4.00 mcIU/mL LAB CHEMISTRY METHOD 10/27/2024 2:58 PM EST [facility] Blood Venous blood specimen / Unknown Venipuncture / Unknown 10/27/2024 9:11 AM EST 10/27/2024 9:11 AM EST Ronald Desai MD LAB BLOOD ORDERABLES Final Result [facility] [address] [place] [address], [place] [phone] * (ABNORMAL) Lipid panel with reflex to direct LDL (10/27/2024 9:11 AM EST) Pathologist [facility] [place] Cholesterol 254(H) 0 - 200 mg/dL LAB CHEMISTRY METHOD 10/27/2024 3:28 PM EST [facility] Triglycerides 161(H) 0 - 150 mg/dL LAB CHEMISTRY METHOD 10/27/2024 3:28 PM [facility] HDL 59 >=40 mg/dL LAB CHEMISTRY METHOD 10/27/2024 3:28 PM [facility] LDL Calculated 163(H) 0 - 100 mg/dL LAB CHEMISTRY METHOD 10/27/2024 3:28 PM [facility] VLDL Cholesterol [place] 32.2 mg/dL LAB CHEMISTRY METHOD 10/27/2024 3:28 PM [facility] Non HDL Chol. (LDL+VLDL) 195(H) <145 mg/dL LAB CHEMISTRY METHOD 10/27/2024 3:28 PM [facility] Chol/HDL Ratio 4.3 0.0 - 4.4 LAB CHEMISTRY METHOD 10/27/2024 3:28 PM [facility] Blood Venous blood specimen / Unknown Venipuncture / Unknown 10/27/2024 9:11 AM EST 10/27/2024 9:11 AM EST us Ronald Desai MD LAB BLOOD ORDERABLES Final Result [facility] [address] [place] [address], * Magnesium (10/27/2024 9:11 AM EST) Magnesium 2.0 1.9 - 2.6 mg/dL LAB CHEMISTRY METHOD 10/27/2024 2:56 PM [facility] Blood Venous blood specimen / Unknown Venipuncture / Unknown 10/27/2024 9:11 AM EST 10/27/2024 9:11 AM EST us Ronald Desai MD LAB BLOOD ORDERABLES Final Result [facility] [address] [place] [address], [place] [phone] * Hemoglobin A1c (10/27/2024 9:11 AM EST) [facility] Hemoglobin A1C 5.5 <6.5 % LAB CHEMISTRY METHOD 10/27/2024 9:24 PM EST [facility] Mean Bld Glu Estim. 111 mg/dL LAB CHEMISTRY METHOD 10/27/2024 9:24 PM EST [facility] Blood Venous blood specimen / Unknown Venipuncture / Unknown 10/27/2024 9:11 AM EST 10/27/2024 9:11 AM EST Ronald Desai MD LAB BLOOD ORDERABLES Final Result Performing Organization Address [facility]/ZIP Co de Phone Number [facility] [address] [place] [address], * Vitamin B12 (10/27/2024 9:11 AM EST) [facility] Vitamin B-12 434 250 - 900 pcg/mL LAB CHEMISTRY METHOD 10/27/2024 3:28 PM EST [facility] Blood Venous blood specimen / Unknown Venipuncture / Unknown 10/27/2024 9:11 AM EST 10/27/2024 9:11 AM EST Ronald Desai MD LAB BLOOD ORDERABLES Final Result [facility] [address] [place] [address], [place] [phone] * (ABNORMAL) Comprehensive metabolic panel (10/27/2024 9:11 AM EST) [facility] Sodium 137 133 - 145 mmol/L LAB CHEMISTRY METHOD 10/27/2024 3:28 PM EST [facility] Potassium 4.4 3.5 - 5.5 mmol/L LAB CHEMISTRY METHOD 10/27/2024 3:28 PM [facility] Chloride 106 96 - 110 mmol/L LAB CHEMISTRY METHOD 10/27/2024 3:28 PM [facility] CO2 26 21 - 32 mmol/L LAB CHEMISTRY METHOD 10/27/2024 3:28 PM [facility] Anion Gap 5 3 - 11 LAB CHEMISTRY METHOD 10/27/2024 3:28 PM [facility] Glucose 86 70 - 100 mg/dL LAB CHEMISTRY METHOD 10/27/2024 3:28 PM [facility] BUN 24 5 - 25 mg/dL LAB CHEMISTRY METHOD 10/27/2024 3:28 PM [facility] Creatinine 1.63(H) 0.70 - 1.30 mg/dL LAB CHEMISTRY METHOD 10/27/2024 3:28 PM [facility] eGFR 46(L) >=60 mL/min/1. 73m2 LAB CHEMISTRY METHOD 10/27/2024 3:28 PM [facility] Comment:Calculation based on the??Chronic Kidney Disease Epidemiology Collaboration (CKD-EPI) equation refit??without adjustment for race. BUN/Creatinine Ratio 14.7 LAB CHEMISTRY METHOD 10/27/2024 3:28 PM [facility] Calcium 8.5 8.5 - 10.5 mg/dL LAB CHEMISTRY METHOD 10/27/2024 3:28 PM [facility] AST (SGOT) 15 10 - 42 unit/L LAB CHEMISTRY METHOD 10/27/2024 3:28 PM [facility] ALT (SGPT) 43 10 - 60 unit/L LAB CHEMISTRY METHOD 10/27/2024 3:28 PM [facility] Alkaline Phosphatase 116 42 - 121 unit/L LAB CHEMISTRY METHOD 10/27/2024 3:28 PM [facility] Total Protein 7.4 6.0 - 8.0 g/dL LAB CHEMISTRY METHOD 10/27/2024 3:28 PM [facility] Albumin 3.9 3.2 - 5.0 g/dL LAB CHEMISTRY METHOD 10/27/2024 3:28 PM EST [facility] Total Bilirubin 0.5 0.0 - 1.4 mg/dL LAB CHEMISTRY METHOD 10/27/2024 3:28 PM EST [facility] Blood Venous blood specimen / Unknown Venipuncture / Unknown 10/27/2024 9:11 AM EST 10/27/2024 9:11 AM EST Ronald Desai MD LAB BLOOD ORDERABLES Final Result [facility] [address] [place] [address], [place] [phone] * Injection tendon or ligament (10/20/2024 2:30 [...] , abstracted Anatomical Region Laterality Modality Other us Historical Provider HEALTH MAINTENANCE Final Result * Hepatitis C Screening (06/09/2007) Hepatitis C Screening abstracted Historical Provider HEALTH MAINTENANCE Final Result from Last 3 Months or Most Recently Relevant to Health Maintenance Insurance 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
--- OUTSIDE RECORDS SUMMARY | 2025-01-18 13:03 | XMS_ITS | Encounter Summary ---
Author Organization [facility] Address [address] [place] [address] Care Team Providers Care Awning Craftsman Name Role Phone Ronald Desai MD Primary Care Provider Encounter Details Date Type Department Care Team (Late st Contact Info) Description 08/21/2024 Lab Requisition [facility] Main [facility] 299 [facility] [place] [phone] Rajeev Diaz MD [address] [place] [address] Dysphagia, unspecified Social History Tobacco Use Types [...] 9:10 AM EDT Office Visit Pulmonolgy - [place] [address] [phone] Suzie Bates NP 175 [facility] 200 [place] [address] 03/15/2025 8:30 AM EDT Office Visit Orthopedic Surgery [facility] 250 175 [facility] 250 [place] [address] David Beltre, DPM [address] [place] [address] 05/06/2025 11:00 AM EDT Office Visit Adult [address] [phone] Ronald Desai MD [address] [place] [address] 05/27/2025 9:00 AM EDT Office Visit Adult [address] [phone] Magui Pang PA [address] [place] [address] 08/03/2025 3:15 PM EDT Office Visit [facility] [address] [place] [address] Marcelo Roach MD [address] [place] [phone] documented as of this encounter Visit Diagnoses Diagnosis Dysphagia, unspecified documented in this encounter Additional Health Concerns Infection Onset Date Last Indicated Resolved Time Respiratory Rule-Out 11/19/2024 11/19/2024 025 11:34 PM EST COVID-19 Rule-Out 11/19/2024 11/19/2024 11/19/2024 11:34 PM EST documented as of this encounter Care Teams Awning Craftsman Relationship Specialty Start Date End Date Ronald Desai MD [address] [place] [address] PCP - General Internal Medicine 07/16/22 documented as of this encounter
--- OUTSIDE RECORDS SUMMARY | 2025-01-18 13:03 | XMS_ITS | Clinical Summary ---
Author Organization [facility] Address [address] [place] [address] Care Team Providers Care Timber Robber Name Role Phone Ronald Desai MD Primary Care Provider [phone] Allergies No known active allergies Medications Medication [...] , 07/28/2019, Additional history exists COVID-19 Vaccine (2023- season) 2024 11/04/2021, 10/03/2021, 01/09/2021, Additional history exists RSV Vaccine 60 years and older and Patients (1 - 1-dose 75+ series) 2030 Hepatitis B Vaccines Aged Out No long er eligible based on patient's age to complete this topic Care Teams Timber Robber Relationship Specialty Start Date End Date Ronald Desai MD PCP - General Medicine Hospitalist 07/18/23
--- OUTSIDE RECORDS SUMMARY | 2025-01-18 13:03 | XMS_ITS | Clinical Summary ---
Author Organization [facility] Address [address] [place] [address] Care Team Providers Care Sewing Department Supervisor Name Role Phone Ronald Desai MD Primary Care Provider [phone] Medications Medication Sig Dispensed Refills Start Date [...] age to complete this topic Care Teams Sewing Department Supervisor Relationship Specialty Start Date End Date Ronald Desai MD [address] [place] [address] PCP - General Hospitalist Medicine 08/27/22
--- OUTSIDE RECORDS SUMMARY | 2025-01-18 13:04 | XMS_ITS | Encounter Summary ---
Author Organization [facility] Address [address] [place] [address] Care Team Providers Care Petroleum Supply Specialist Name Role Phone Ronald Desai MD Primary Care Provider [phone] Encounter Details Date Type Department Care Team (Late st Contact Info) Description 07/19/2023 Scanned Document [facility] [address] [phone] Babar Cage MD [address] [place] [address] Social History Tobacco Use Types Packs/Day Years [...] on filedocumented in this encounter Care Teams Petroleum Supply Specialist Relationship Specialty Start Date End Date Ronald Desai MD PCP - General Medicine Hospitalist 07/18/23 documented as of this encounter
== END 2025-01-18 10:55 | disposition home or self-care (01) ==
LOC: HO.XRAY 10:54
PROVIDERS: PCP Internal Medicine; Visit Provider Psychiatry & Neurology Neurology
DX: M25.551 Pain in right hip (principal); M25.552 Pain in left hip
CPT/HCPCS: 73522

== ENCOUNTER → 2025-01-18 11:00 | Outpatient (BNV) | payer MEDICARE, SELFPAY | PROVIDERS: PCP Internal Medicine; Visit Provider Radiology Diagnostic Radiology | DX: M16.0 Bilateral primary osteoarthritis of hip (principal) | CPT/HCPCS: 73522 ==

== ENCOUNTER 2025-03-01 14:47 | Outpatient (AMB) | payer MEDICARE, SELFPAY ==
--- OUTSIDE RECORDS SUMMARY | 2025-03-01 14:52 | XMS_ITS | Clinical Summary ---
Author Organization [facility] Address [address] [place] [address] Care Team Providers Care Felting Machine Operator Name Role Phone Ronald Desai MD Primary Care Provider [phone] Medications Medication Sig Dispensed Refills Start Date [...] age to complete this topic Care Teams Felting Machine Operator Relationship Specialty Start Date End Date Ronald Desai MD [address] [place] [address] PCP - General Hospitalist Medicine 08/27/22
--- OUTSIDE RECORDS SUMMARY | 2025-03-01 14:52 | XMS_ITS | Encounter Summary ---
Author Organization [facility] Address [address] [place] [address] Care Team Providers Care Instructional Material Director Name Role Phone Ronald Desai MD Primary Care Provider [phone] Reason for Referral * Imaging (Routine) - Pending Review Specialty Diagnoses / Procedures Referred By Roberta elder Referred To Contact Diagnoses Claudication (CMS/HCC V24) Procedures Vascular US duplex lower extremity arteries bilateral with ERIN Elvira Mart MD [address] [address] Phone: tel: fax: [facility] Referral ID Status Reason Start Date Expiration Date V isits Requested Visits Authorized [id number] Pending Review 02/24/2025 02/24/2026 1 1 Reason for Visit * Reason Comments Consult * Consultation (Routine) - Closed Specialty Diagnoses / Procedures Referred By Contmarisela t Referred To Contact Vascular Surgery Diagnoses Claudication ([facility]/HCC V24) David Beltre, DPM 175 [facility] 250 [place] [address] Phone: tel: fax: Vascular Surgery - [place] 300 [facility] 210 [place] [address] Phone: tel: fax: Referral ID Status Reason Start Date Expiration Date V isits Requested Visits Authorized [id number] Closed Specialty Services Required 01/11/2025 01/11/2026 1 1 Encounter Details Date Type Department Care Team (Late st Contact Info) Description 02/24/2025 9:00 AM EDT Consult Vascular Surgery - [place] [address] [place] [address] Elvira Mart MD [address] [place] [address] Claudication ([facility] V24) Social History Tobacco Use Types Packs/Day Years [...] Sign Reading Time Taken Comments Blood Pressure 143/72 02/24/2025 9:21 AM EDT Pulse 89 02/24/2025 9:21 AM EDT Temperature - - Respiratory Rate - - Oxygen Saturation - - Inhaled Oxygen Concentration - - Weight 106 kg (232 lb 9.6 oz) 02/24/2025 9:21 AM EDT Height 182.9 cm (6') 02/24/2025 9:21 AM EDT Body Mass Index 31.55 02/24/2025 9:21 AM EDT documented in this encounter Progress Notes * Elvira Mart MD - 02/24/2025 9:00 AM EDT Continue current medications,arterial us with erin before next visit in 3 months.Continue follow up with your PCP. * Elvira Mart MD - 02/24/2025 9:00 AM EDT PATIENT: Pete Ceballos ENCOUNTER: 02/24/2025 EMRN: [id number] : 1955 PCP: Ronald Desai MD CHIEF COMPLAINT: Consult HPI: This 69 y.o. male presents for evaluation of leg pain. He had cervical and lumbar spinal stenosis, has had back surgery cervical and lumbar sacral area by Dr. Tapia. He complains of paresthesia ofthe lower extremities and upper extremities. He walks but has unsteady gait, so far he has not fallen down. He is careful when he walks. He denies any leg ulcer no prior history of DVT. He had cervical fusion, and lumbar fusion by Dr. Tapia. He has a history of hypertension hyperlipidemia. PAST MEDICAL HISTORY: Patient Active Problem List Diagnosis Abnormality of gait Adjustment disorder with mixed anxiety and depressed mood Allergic rhinitis Bilateral shoulder region arthritis Dementia (CMS/HCC V24, CMS/HCC V28) Dysphagia Dyspnea on exertion Elevated PSA Flatulence, eructation, and gas pain Gallbladder polyp Gastroesophageal reflux disease without esophagitis Heart murmur Hepatomegaly Herpes simplex infection Hyperlipidemia Impingement syndrome of shoulder region Lung nodule seen on imaging study Methacholine challenge positive Mild chronic obstructive pulmonary disease (CMS/HCC V24, CMS/HCC V28) Mild persistent asthma without complication Epigastric discomfort Muscle cramps Neoplasm of uncertain behavior of skin Nontraumatic complete tear of right rotator cuff Nuclear sclerosis of both eyes Obesity (BMI 30-39.9) Peripheral neuropathy Primary hypertension Renal cyst Sleep apnea Snoring Spinal stenosis of cervical region Lumbar radiculopathy Cervical radiculopathy Spinal stenosis of lumbar region Stage 3 chronic kidney disease (CMS/HCC V24, CMS/HCC V28) Tear of supraspinatus tendon Dysplastic nevi Thoracic [...] Dysphagia Acute pharyngitis Chronic obstructive pulmonary disease (CMS/HCC V24, CMS/HCC V28) Chronic pharyngitis Mixed hyperlipidemia Obstructive sleep apnea syndrome S/P cervical spinal fusion Cognitive impairment Muscle twitching PAST SURGICAL HISTORY: Past Surgical History: Procedure Laterality Date COLONOSCOPY 10/21/2007 PROCEDURE: HISTORICAL COLONOSCOPY; COMMENT: normal; repeat in ten years HERNIA REPAIR PROCEDURE: HISTORICAL HERNIA REPAIR/UMB; COMMENT: dr. mcneil HERNIA REPAIR 10/29/2018 PROCEDURE: REPAIR UMBILICAL HERNIA; COMMENT: Dr. Mcneil MOLE REMOVAL PROCEDURE: HISTORICAL MOLE (REMOVAL OF) NASAL SEPTUM SURGERY PROCEDURE: PA SEPTOPLASTY/SUBMUCOUS RESECJ W/WO CARTILAGE GRF NECK SURGERY PROCEDURE: HISTORICAL NECK SURGERY; COMMENT: bone spur surgery SHOULDER SURGERY Left PROCEDURE: HISTORICAL SHOULDER SURGERY UPPER GASTROINTESTINAL ENDOSCOPY 07/28/2009 PROCEDURE: PA UPPER GI ENDOSCOPY PERFORMED; COMMENT: R/o Laurent's esophagus- biopsy:mild chronic inflammation, mild gastritis-biopsy:gastritis(HPylori+), normal duodenum-biopsy:Nl MEDICATIONS: Outpatient Medications Marked as Taking for the 02/24/25 encounter (Consult) with Elvira Mart MD Medication Sig Dispense Refill albuterol HFA [...] total) by mouth1 (one) time each day. clotrimazole (LOTRIMIN) 1 % cream Apply topically 2 (two) times a day. Rash over the genitals 30 g 0 diclofenac (VOLTAREN) 1 % topical gel Apply 2 g topically 2 (two) times a day. 100 g 3 dicyclomine (BENTYL) 10 mg capsule Take [...] and incidence of candidiasis. Do not swallow. 1 each 11 fluticasone propionate (FLONASE) 50 mcg/actuation nasal spray [...] dryness or congestion, with use of CPAP tamsulosin (FLOMAX) 0.4 mg 24 hr capsule Take 1 capsule (0.4 mg total) by mouth at bedtime. tiZANidine (ZANAFLEX) 4 mg tablet Take 1 tablet (4 mg total) by mouth at bedtime as needed for muscle spasms. 30 tablet 2 valACYclovir (VALTREX) 1 gram tablet Take 1 tablet (1,000 mg total) by mouth 3 (three) times a day.21 tablet 0 zinc gluconate 50 mg tablet Take 1 capsule by mouth 1 (one) time each day. ALLERGIES: Allergies Allergen Reactions House Dust Mite Other Reaction(s): Runny Nose/Rhinitis Pravastatin Other Reaction(s): UNKNOWN SOCIAL HISTORY: Social History Tobacco Use Smoking status: Never Smokeless tobacco: Never Substance Use Topics Alcohol use: No Drug use: No FAMILY HISTORY: Family History Problem [...] Macular degeneration Neg Hx Strabismus Neg Hx ROS: GENERAL: No malaise, significant weight loss or fever HEENT: No changes in hearing or vision, nose bleeds or other nasal problems NECK: No lumps, goiter, pain or significant neck swelling RESPIRATORY: No cough, wheezing or shortness of breath CARDIAC: No chest pain or palpitations GI: No abdominal discomfort, blood in stools or black stools : No dysuria, frequency or incontinence MUSCULOSKELETAL: SEE HPI SKIN: No lesions, rash or itching ENDOCRINE: No cold or heat intolerance, polyuria, polydipsia or goiter. NEURO: No persistent headache, syncope, seizures, weakness or numbness VASCULAR: SEE HPI PHYSICAL EXAM: Vitals: 02/24/25 0921 BP: (!) 143/72 BP Location: Right arm Patient Position: Sitting Pulse: 89 Weight: 106 kg (232 lb 9.6 oz) Height: 1.829 m (72 ) APPEARANCE: Alert and in no acute distress EYES: Pupils, conjunctiva and sclera normal.. NECK: Neck supple, no adenopathy difficulty extending the neck to look up. HEART: RRR with no murmurs appreciated LUNG: clear to auscultation GI: soft and non-tender LYMPH NODES: grossly normal MUSCULOSKELETAL: Spine ROM normal. Muscular strength intact. SKIN: is grossly normal NEURO: Awake, alert and oriented x 3, unsteady gait PSYCHIATRIC: Mood and affect are normal VASCULAR: Carotid pulses palpable bilaterally no bruit no JVD. Brachial radial pulses palpable bilaterally. Femorals palpable bilaterally. Popliteal not palpable. Dorsalis pedis pulse palpable bilaterally, weakly palpable posterior tibial. No ulcer no calf tenderness no leg edema. ASSESSMENT: 1. Claudication (CMS/HCC V24) No recent vascular study available for review. PLAN: 69 y.o. male with intermittent claudication, status post cervical and lumbar fusion, arterial ultrasound with ERIN was ordered to further evaluate his lower extremity circulation. We shall see him in follow-up in 3 months to discuss the results. I believe most of his symptoms are neurogenic in nature. Discussion of the natural pathophysiology of arterial sclerosis, signs and symptoms of arterial occlusion discussed with him. His questions answered. CC: David Beltre DPM documented in this encounter Plan of Treatment Upcoming Encounters Date Type Department Care Team (Late st Contact Info) Description 03/15/2025 8:30 AM EDT Office Visit Orthopedic Surgery - [place] 250 [address] [facility] [address] [place] [address] David Beltre DPM 175 [facility] [address] [place] [address] 04/14/2025 10:00 AM EDT Ancillary Procedure [facility] [address] [place] [address] 04/27/2025 10:35 AM EDT Office Visit Pulmonolgy - [place] 175 [facility] 200 [place] [address] Suzie Bates NP 175 [facility] 200 [place] [address] 05/06/2025 11:00 AM EDT Office Visit [address] [phone] Ronald Desai MD [address] [place] [address] 05/27/2025 9:00 AM EDT Office Visit [address] [phone] Magui Pang PA [address] [place] [address] 06/17/2025 9:30 AM EDT Office Visit Vascular Surgery - [place] 300 [facility] 210 [place] [address] Elvira Mart MD 300 [facility] 210 [place] [address] 07/27/2025 3:15 PM EDT Office Visit Nephrology - [facility] [address] [place] [phone] Marcelo Roach MD [address] [facility] 200 [place] [address] Scheduled Orders Name Type Priority Associated Diagnoses Orde r Schedule Vascular US duplex lower extremity arteries bilateral with ERIN Vascular Ultrasound Routine Claudication ([facility] V24) Expected: 02/24/2025, Expires: 02/24/2026 documented as of this encounter Visit Diagnoses Diagnosis Claudication ([facility] V24) Unspecified peripheral vascular disease documented in this encounter Orders Outpatient Referral Count Last Ordered Date Fir st Ordered Date AMB REFERRAL TO VASCULAR SURGERY 1 02/25/20 25 documented in this encounter Care Teams Instructional Material Director Relationship Specialty Start Date End Date Ronald Desai MD [address] [place] [address] PCP - General Internal Medicine 07/16/22 documented as of this encounter
--- OUTSIDE RECORDS SUMMARY | 2025-03-01 14:52 | XMS_ITS | Clinical Summary ---
Author Organization [facility] Address [address] [address] Care Team Providers Care Telephone Lineman Name Role Phone Unavailable Primary Care Provider [...] Colorectal Cancer Screening: Sigmoidoscopy 2004 Pneumococcal Vaccine: 50+ Ye ars (1 of 1 - PCV) 2005 Influenza Vaccine (Season Ended) 2025 Hepatitis B Vaccine Aged Out No longe r eligible based on patient's age to complete this topic
--- OUTSIDE RECORDS SUMMARY | 2025-03-01 14:52 | XMS_ITS | Encounter Summary ---
Author Organization [facility] Address [address] [place] [address] Care Team Providers Care 911 Telecommunicator Name Role Phone Ronald Desai MD Primary Care Provider Unav ailable Encounter Details Date Type Department Care Team (Late st Contact Info) Description 07/19/2023 Scanned Document [facility] [address] [phone] Babar Cage MD [address] [place] [address] Social History Tobacco Use Types Packs/Day Years Used Date Smoking Tobacco: Never Assessed Comments Unknown Sex and Gender Information Value Date Recorded Sex Assigned at Choose not to disclose 2:25 PM EDT Legal Sex Male 10:35 AM EDT Gender Identity Choose not to disclose 2:25 PM EDT Sexual Orientation Choose not to disclose 2022 2:25 PM EDT documented as of this encounter Plan of Treatment Not on file documented as of this encounter Visit Diagnoses Not on filedocumented in this encounter Care Teams 911 Telecommunicator Relationship Specialty Start Date End Date Ronald Desai MD PCP - General Medicine Hospitalist 07/18/23 documented as of this encounter
--- OUTSIDE RECORDS SUMMARY | 2025-03-01 14:52 | XMS_ITS | Clinical Summary ---
Author Organization [facility] Address [address] [place] [address] Care Team Providers Care Elevating Grader Operator Name Role Phone Ronald Desai MD Primary Care Provider Unav ailable Allergies No known active allergies Medications methylPREDNISol one (MEDROL DOSEPAK) 4 MG tabletIndicatio ns:Pain follow package directions 21 tablet 3 Active Active Problems No known active problems Social History Tobacco Use Types Packs/Day Years Used Date Smoking Tobacco: Never Assessed Comments Unknown Sex and Gender Information Value Date Recorded Sex Assigned at Choose not to disclose 2:25 PM EDT Legal Sex Male 10:35 AM EDT Gender Identity Choose not to disclose 3 2:25 PM EDT Sexual Orientation Choose not to disclose 2022 2:25 PM EDT Plan of Treatment Health Maintenance Due Date Last Done Comments Hepatitis C Virus Screening 1955 DTaP/Tdap/Td Vaccines (1 - Tdap) 1974 Colonoscopy 2000 Pneumococcal Vaccines 50+ (1 of 1 - PCV) 2005 Zoster (Shingles) Vaccine (1 of 2) 2005 DXA Bone Density (Females,Ages 65 and older) 2020 COVID-19 Vaccine ( season) 2024 11/04/2021, 10/03/2021, 01/09/2021, Additional history exists Influenza Vaccine 05/14/2025 07/28/2020, , 07/28/2019, Additional history exists RSV Vaccine 60 years and older and Patients (1 - 1-dose 75+ series) 2030 Hepatitis B Vaccines Aged Out No long er eligible based on patient's age to complete this topic Insurance MEDICARE MEDICARE Care Teams Elevating Grader Operator Relationship Specialty Start Date End Date Ronald Desai MD PCP - General Medicine Hospitalist 07/18/23
--- OUTSIDE RECORDS SUMMARY | 2025-03-01 14:52 | XMS_ITS | Encounter Summary ---
Author Organization [facility] Address [address] [place] [address] Care Team Providers Care Sales Floor Team Leader Name Role Phone Ronald Desai MD Primary Care Provider Encounter Details Date Type Department Care Team (Late st Contact Info) Description 08/21/2024 Lab Requisition [facility] - Main Lab 299 [facility] [place] [phone] Rajeev Diaz MD [address] [place] [address] Dysphagia, unspecified Social History Tobacco Use Types [...] Department Care Team (Late Contact Info) Description 03/15/2025 8:30 AM EDT Office Visit Orthopedic Surgery - [place] [address] [phone] David Beltre, DPM [address] [address] 04/14/2025 10:00 AM EDT Ancillary Procedure [facility] - [facility] 101 300 [facility] 101 [place] [address] 04/27/2025 10:35 AM EDT Office Visit Pulmonolgy - [place] 175 [facility] 200 [place] [address] Suzie Bates NP 175 [facility] 200 [place] [address] 05/06/2025 11:00 AM EDT Office Visit [address] [phone] Ronald Desai MD [address] [place] [address] 05/27/2025 9:00 AM EDT Office Visit [address] [phone] Maugi Pang PA [address] [place] [address] 06/17/2025 9:30 AM EDT Office Visit Vascular Surgery [facility] 300 [facility] 210 [place] [address] Elvira Mart MD 300 [facility] 210 [place] [address] 07/27/2025 3:15 PM EDT [facility] [address] [place] [address] Marcelo Roach MD 100 [facility] 200 [place] [address] documented as of this encounter Visit Diagnoses Diagnosis Dysphagia, unspecified documented in this encounter Additional Health Concerns Infection Onset Date Last Indicated Resolved Time Respiratory Rule-Out 11/19/2024 11/19/2024 025 11:34 PM EST COVID-19 Rule-Out 11/19/2024 11/19/2024 11/19/2024 11:34 PM EST documented as of this encounter Care Teams Sales Floor Team Leader Relationship Specialty Start Date End Date Ronald Desai MD [address] [place] [address] PCP - General Internal Medicine 07/16/22 documented as of this encounter
--- OUTSIDE RECORDS SUMMARY | 2025-03-01 14:52 | XMS_ITS | Data Portability ---
Author Organization [facility] Address [address] [place] [address] Care Team Providers Care Cook'S Assistant Name Role Phone MACHELLE KASHMIR Primary Care Provider [phone] Assessment Encounter Date Assessment Date Assessment LastModified [...] primary osteoarthri tis of the shoulder region 659945796 Active 2022 SILVIA ARCE PA-C [address], [place], [address], [facility], P 3 09:28:46 Rupture of rotator cuff of right shoulder [id number] 9103 Active 2022 SILVIA ARCE PA-C [address], [place], [address], [facility], P 3 09:28:56 Problem Notes None recorded. [...] Relief 50 mcg/actuatio n nasal spray,suspen linda [place] 1 spray every day by intranasal route. [...] Updated DateTime 12/27/2022 182.88 cm 31.6 kg/m2 528309.[address] [facility], 12/27/2022 08:51:03 Social History None recorded. Functional Status None recorded. Mental Status None recorded. Family History Relationship Description Onset Age of this Age Resolved Age Notes LastModified by Organization Details LastModified Time Mother Family history of malignant neoplasm [email or web address] Not available 2022 08:51:41 Medical History Condition Response Kidney Disease Y Reflux/GERD Y Hypertension Y Past Encounters Encounter ID Performer Location Encounter Start Date Encounter Closed Date Diagnosis/Indication Diagnosis SNOMED-CT Code Diagnosis ICD10 Code Diagnosis Note [id number] [address]EZ[address] 299 [facility] [address] [place] [address] 12/27/2022 08:43:13 12/27/2022 09:01:29 Localized, primary osteoarthritis of the shoulder region 455263524 M19.019 Rupture of rotator cuff of right shoulder 7578913926 3674717 M75.101 Health Concerns Section Related Observation LastModified by Organization Detai ls LastModified Time None Recorded Concern Status LastModified by Organization Details LastModified Time None Recorded Advance Directives Directive None Recorded Payers Encounter Date Sequence Insurance Name Policy Number Policy Leigh Covered Member ID Leigh Member ID Guarantor Name 12/27/2022 1 [facility] [id number] 1 Pete Ceballos [id number] Peterosaline Ceballos Notes Date Note Type Note [...] for earlier injection. SILVIA ARCE PA-C [address], [place], [address], [place] [facility], P 12/27/2022 09:30:00
--- OUTSIDE RECORDS SUMMARY | 2025-03-01 14:52 | XMS_ITS | Encounter Summary ---
Author Organization [facility] Address [address] [place] [address] Care Team Providers Care Script Coordinator Name Role Phone Ronald Desai MD Primary Care Provider [phone] Reason for Visit * Reason Onset Date Comments Referral 02/19/2025 Encounter Details Date Type Department Care Team (Late st Contact Info) Description 02/19/2025 Telephone Adult Medicine [facility] [address] [place] [phone] Ronald Desai MD [address] [place] [address] Referral Social History Tobacco Use Types Packs/Day Years [...] Progress Notes * Salma Canseco RN - 02/19/2025 8:51 AM EDT This referral was done by jadiel juarez in ortho * Jacob Alexander - 02/19/2025 8:42 AM EDT Patient called requesting if the physical therapy referral can also be resent to the physical therapists office but be re written to include his neck as they will not help treat any thing associated with that without a diagnosis documented in this encounter Plan of Treatment Upcoming Encounters Date Type Department Care Team (Late st Contact Info) Description 03/15/2025 8:30 AM EDT Office Visit Orthopedic Surgery - [place] 250 175 [facility] 250 [place] [phone] David Beltre, DPMel 175 [facility] 250 [place] [address] 04/14/2025 10:00 AM EDT Ancillary Procedure [facility] 101 300 [facility] 101 [place] [phone] 04/27/2025 10:35 AM EDT Office Visit Pulmonolgy - [place] 175 [facility] 200 [place] [address] Suzie Bates NP 175 [facility] 200 [place] [address] 05/06/2025 11:00 AM EDT Office Visit Adult Medicine [address] [phone] Ronald Desai MD [address] [place] [address] 05/27/2025 9:00 AM EDT Office Visit Adult Medicine [address] [phone] Magui Pang PA [address] [place] [address] 06/17/2025 9:30 AM EDT Office Visit Vascular Surgery - [place] 300 [facility] 210 [place] [phone] Elvira Mart MD [address] [place] 210 [place] [address] 07/27/2025 3:15 PM EDT Office Visit Nephrology - [facility] [address] [place] [phone] Marcelo Roach MD [address] [facility] 200 [place] [phone] documented as of this encounter Visit Diagnoses Not on filedocumented in this encounter Care Teams Script Coordinator Relationship Specialty Start Date End Date Ronald Desai MD [address] [place] [address] PCP - General Internal Medicine 07/16/22 documented as of this encounter
--- OUTSIDE RECORDS SUMMARY | 2025-03-01 14:52 | XMS_ITS | Encounter Summary ---
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 He has one on 03/26/23 but he is checking in for a sooner appointment. PT says [place] told him to call our office. documented in this encounter Plan of Treatment Not on file documented as of this encounter Visit Diagnoses Not on filedocumented in this encounter
--- OUTSIDE RECORDS SUMMARY | 2025-03-01 14:52 | XMS_ITS | Encounter Summary ---
Author Organization [facility] Address [address] [place] [address] Care Team Providers Care Collar Setter Overlock Name Role Phone Ronald Desai MD Primary Care Provider Encounter Details Date Type Department Care Team (Late st Contact Info) Description 08/15/2024 Lab Requisition [facility] - Main Lab 299 [facility] [place] [phone] Rajeev Diaz MD [address] [place] [address] Dysphagia, unspecified Social History Tobacco Use Types [...] AM EDT Office Visit Orthopedic Surgery - [place] [address] [phone] David Beltre, DPM [address] [address] 04/14/2025 10:00 AM EDT Ancillary Procedure [facility] 101 300 [facility] 101 [place] [address] 04/27/2025 10:35 AM EDT Office Visit Pulmonolgy - [place] 175 [facility] [address] [place] [address] Suzie Bates NP 175 [facility] 200 [place] [address] 05/06/2025 11:00 AM EDT Office Visit [address] [address] Ronald Desai MD [address] [place] [address] 05/27/2025 9:00 AM EDT Office Visit [address] [phone] Magui Pang PA [address] [place] [address] 06/17/2025 9:30 AM EDT Office Visit Vascular Surgery [facility] 300 [facility] 210 [place] [address] Elvira Mart MD 300 [facility] 210 [place] [address] 07/27/2025 3:15 PM EDT Office Visit [facility] - [facility] [address] [address] [place] [address] Marcelo Roach MD 100 [facility] 200 [place] [address] documented as of this encounter Visit Diagnoses Diagnosis Dysphagia, unspecified documented in this encounter Additional Health Concerns Infection Onset Date Last Indicated Resolved Time Respiratory Rule-Out 11/19/2024 11/19/2024 025 11:34 PM EST COVID-19 Rule-Out 11/19/2024 11/19/2024 11/19/2024 11:34 PM EST documented as of this encounter Care Teams Collar Setter Overlock Relationship Specialty Start Date End Date Ronald Desai MD [address] [place] [address] PCP - General Internal Medicine 07/16/22 documented as of this encounter
--- OUTSIDE RECORDS SUMMARY | 2025-03-01 14:52 | XMS_ITS | Clinical Summary ---
Author Organization [facility] Address [address] [place] [address] Phone Care Team Providers Care Statistics Teacher Name Role Phone Ronald Desai MD [...] a day if needed for dry eyes. 017 Active fluticasone propionate (FLONASE) 50 mcg/actuation nasal spray Administer 2 sprays into each nostril 1 (one) time each day. 023 Active ipratropium-alb uteroL (DUONEB) 0.5-2.5 mg/3 mL nebulizer solution Inhale 3 mL by mouth. 024 Active montelukast (SINGULAIR) 10 mg tablet Take 1 tablet (10 mg total) by mouth at bedtime. 022 Active ketoconazole (NIZORAL) 2 % shampoo Apply topically 1 (one) time each day if needed. 019 Active lidocaine (LIDODERM) 5 % patch Place 1 patch on the skin 1 (one) time each day. Apply for no more than 12 hours in any 24 hour period. - Active magnesium amino acid chelate 100 mg tablet Take 1 tablet by mouth 1 (one) time each day. Active cetirizine (ZyrTEC) 10 mg tablet Take 1 tablet (10 mg total) by mouth. Active aspirin 81 mg EC tablet Take 1 tablet (81 mg total) by mouth 1 (one) time each day. Active dicyclomine (BENTYL) 10 mg capsule Take 1 capsule (10 mg total) by mouth. Active multivitamin with iron-minerals 9 mg iron/15 mL liquid Take 15 mL by mouth. Active loratadine (CLARITIN) 10 mg tablet Take 1 tablet (10 mg total) by mouth 1 (one) time each day. Active sodium chloride (OCEAN) 0.65 % nasal spray Administer 1 spray into each nostril 2 (two) times a day if needed for congestion. needed for Other (nasal dryness or congestion, with use of CPAP Active aluminum-magnes ium hydroxide-simet hicone (Mylanta Maximum Strength) 400-400-40 mg/5 mL suspension Take 10 mL by mouth 4 (four) times a day (before meals and nightly). 900 mL 11 Active albuterol HFA (PROAIR HFA ; PROVENTIL HFA ; VENTOLIN HFA) 90 mcg/actuation inhaler Inhale 2 puffs by mouth every 6 (six) hours if needed for wheezing or shortness of breath. This is a Rescue Medication; not exceed 12 inhalations/24 hrs. - Inhalation 6.7 g 3 Active fenofibrate (TRICOR) 145 mg tablet Take 1 tablet (145 mg total) by mouth 1 (one) time each day. 90 each 1 025 Active losartan (COZAAR) 25 mg tablet Take 1 tablet (25 mg total) by mouth 1 (one) time each day. 90 tablet 1 025 Active ezetimibe (ZETIA) 10 mg tablet Take 1 tablet (10 mg total) by mouth 1 (one) time each day. 90 tablet 1 025 Active gabapentin (NEURONTIN) 100 mg capsule Take 1 capsule (100 mg total) by mouth 2 (two) times a day. 60 capsule 3 025 Active pantoprazole (PROTONIX) 40 mg EC tablet Take 1 tablet (40 mg total) by mouth 2 (two) times a day. Take on empty stomach, wait 30 mins and then eat to activate the medication- before breakfast and supper 60 each 11 025 Active hydrocortisone 1 % topical cream Apply topically 2 (two) times a day. 56 g 1 025 Active tamsulosin (FLOMAX) 0.4 mg 24 hr capsule Take 1 capsule (0.4 mg total) by mouth at bedtime. 025 Active fluticasone propion-salmete roL (ADVAIR DISKUS) 500-50 mcg/dose diskus inhalerIndicati ons:Severe persistent asthma without complication (CMS/[facility] V28) Inhale 1 puff by mouth 2 (two) times a day. Rinse mouth with water after use to reduce aftertaste and incidence of candidiasis. Do not swallow. 1 each 025 2025 Active tiZANidine (ZANAFLEX) 4 mg tablet Take 1 tablet (4 mg total) by mouth at bedtime as needed for muscle spasms. 30 tablet 2 025 Active diclofenac (VOLTAREN) 1 % topical gel Apply 2 g topically 2 (two) times a day. 100 g 3 025 Active clotrimazole (LOTRIMIN) 1 % cream Apply topically 2 (two) times a day. Rash over the genitals 30 g 025 Active valACYclovir (VALTREX) 1 gram tablet Take 1 tablet (1,000 mg total) by mouth 3 (three) times a day. 21 tablet 025 Active Vitamin D3 25 mcg (1,000 unit) tablet TAKE 1 TABLET BY MOUTH EVERY DAY 90 tablet 1 025 Active cholecalciferol (VITAMIN D-3) 25 mcg (1,000 unit) tablet Take 1 tablet (1,000 Units total) by mouth 1 (one) time each day. 022 2024 Discontinued valACYclovir (VALTREX) 500 mg tablet Take 1 tablet (500 mg total) by mouth 1 (one) time each day. 2024 Discontinued(F ormulary change) cyclobenzaprine (FLEXERIL) 5 mg tablet Take 1 tablet (5 mg total) by mouth at bedtime as needed for muscle spasms. MAY CAUSE DROWSINESS.DONT DRIVE 30 tablet 3 025 2024 Discontinued polyethylene glycol (Gavilax) 17 gram/dose oral powder Take 17 g by mouth 1 (one) time each day. PLEASE SEE ATTACHED FOR DETAILED DIRECTIONS 1530 g 1 025 2024 Discontinued(T herapy completed) predniSONE (DELTASONE) 20 mg tablet Take 3 tablets (60 mg total) by mouth See administration instructions for 2 days, THEN 2 tablets (40 mg total) See administration instructions for 2 days, THEN 1 tablet (20 mg total) See administration instructions for 3 days. 13 tablet 025 2024 Discontinued(T herapy completed) Active Problems Problem Noted Date Diagnosed Date [...] outlined in detailed above. He follows with windows architect and is due to repeat a sleep study as he has known sleep apnea which is untreated. He also has history of COPD and uses inhalers. Patient encouraged to follow-up with his windows architect regularly. Heart murmur 04/19/2022 Overview (12/18/2023): Last [...] 6 months June 2015 Mild chronic obstructive pul monary disease ([facility] V24, [facility] V28) 03/28/2015 Overview (12/18/2023): Dr Qiu Chronic obstructive pulmonar y disease ([facility] V24, [facility] V28) 03/28/2015 Overview (07/15/2024): Dr Qiu Dysphagia 01/27/2015 Overview (12/18/2023): Seen and evalauted by Dr. Conde Dementia ([facility] V24, [facility] V28) 10/15/2012 Overview (12/18/2023): Seen with Tabitha, now on Aricept Stage 3 chronic kidney disease ([facility] V24, [facility] V28) 01/06/2012 Sleep apnea 06/01/2011 Overview (12/18/2023): [facility] Home Sleep Apnea Test: Date [...] Encounters Date Type Department Care Team Description 02/24/2025 9:00 AM EDT Consult Vascular Surgery - [place] [address] [place] [address] Elvira Mart MD Claudication ([facility] V24) 02/19/2025 Telephone Adult Medicine [address] [phone] Ronald Desai MD Referral 02/17/2025 9:29 AM EDT - 02/17/2025 11:59 PM EDT Hospital Encounter XR - [address] [phone] Discharge Disposition: Home or Self Care 02/17/2025 9:29 AM EDT - 02/17/2025 11:59 PM EDT Hospital Encounter XRAY - [address] [phone] Discharge Disposition: Home or Self Care 02/17/2025 9:00 AM EDT Consult Orthopedics - [address] [phone] Casey Bragg PA Chronic pain of both knees (Primary Dx); Right hip pain; Lumbar pain 02/12/2025 11:30 AM EDT Office Visit Adult Medicine [address] [phone] Ronald Desai MD Eczema of scalp (Primary Dx); Rash of face; Candidal balanitis 02/12/[address] [phone] Ronald Desai MD Rash (Rash on head , spreading very rapidly please advise urgently due to spread speed ) 02/10/2025 12:30 PM EDT Office Visit [address] [phone] Ronald Desai MD Lumbar radiculopathy (Primary Dx); Right hip pain 01/26/2025 11:10 AM EDT Office Visit Pulmonolgy [address] [phone] Suzie Bates NP Severe persistent asthma without complication (CMS/HCC V28) (Primary Dx); Chronic obstructive pulmonary disease, unspecified COPD type (CMS/HCC V24, CMS/HCC V28); Obstructive sleep apnea syndrome; Cognitive impairment; Obesity (BMI 30-39.9) 01/11/2025 8:30 AM EDT Office Visit Orthopedic Surgery [facility] [address] [phone] David Beltre, DPM Claudication ([facility] V24) (Primary Dx); Plantar fascial fibromatosis; Ingrowing nail; Pain in toe of left foot; Pain in toe of right foot; Difficulty walking; Hammer toe of left foot; Acquired hammer toe of right foot; Dermatophytosis of nail; Equinus contracture of ankle 01/08/2025 2:00 PM EDT Office Visit Gastroenterology [facility] [address] [phone] Tai Lambert PA Esophageal dysmotility (Primary Dx); Gastroesophageal reflux disease without esophagitis; H/O cervical spine surgery; Rectal bleeding 01/04/2025 9:15 AM EDT Office Visit [address] [phone] Ronald Desai MD Rectal bleeding (Primary Dx) 12/25/2024 Telephone Adult Medicine [address] [phone] Ronald Desai MD Hemorrhoids 12/22/2024 7:14 AM EDT - 12/22/2024 11:59 PM EDT Hospital Encounter [facility] [address] [phone] Dysphagia, unspecified type; Gastroesophageal reflux disease with esophagitis without hemorrhage; Globus sensation Discharge Disposition: Home or Self Care 12/16/2024 2:00 PM EST Office Visit Nephrology [address] [phone] Marcelo Roach MD Stage 3a chronic kidney disease (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, stage 1 through stage 4 or unspecified chronic kidney disease, without heart failure 12/09/2024 Telephone Adult [address] [phone] Ronald Desai MD dryness throat; dry nose 12/08/2024 9:15 AM EST Office Visit Orthopedic Surgery [address] [phone] David Beltre, DPM Plantar fascial fibromatosis (Primary Dx); Equinus contracture of ankle; Ingrowing nail; Hammer toe of left foot; Acquired hammer toe of right foot 12/04/2024 11:15 AM EST - 12/04/2024 11:59 PM EST Hospital Encounter XRAY [address] [phone] Asthma-COPD overlap syndrome (CMS/HCC V24, CMS/HCC V28); COPD exacerbation (CMS/HCC V24, CMS/HCC V28); Upper respiratory tract infection, unspecified type Discharge Disposition: Home or Self Care 12/04/2024 11:15 AM EST Office Visit Adult Medicine [id number] [place] [phone] Magui Pang PA Asthma-COPD overlap syndrome ([facility] V24, [facility] V28) (Primary Dx); COPD exacerbation ([facility] V24, [facility] V28); Upper respiratory tract infection, unspecified type 12/03/2024 Telephone Adult Medicine [address] [phone] Salma Canseco RN from Last 3 Months Immunizations Name Administration [...] disease) COPD (chronic obstructive pu lmonary disease) ([facility] V24, [facility] V28) DX:COPD (chronic o bstructive pulmonary disease) ([facility]) Hypertension DX:Hypertension Kidney damage DX:Kidney damage Dementia ([facility] V24, [facility] V28) DX:Dementia ([facility]) Sleep apnea DX:Sleep apnea Esophageal reflux DX:Esophageal reflux Disorder DX:Disorder Cervicalgia DX:Cervicalgia; COMMENT: s/p Dr. Ellis , bone spur Allergic rhinitis, cause unspecified 05/06/2007 DX:Allergic rhinitis, cause unspecified Nevus, non-neoplastic DX:Nevus, non-neoplastic Esophageal reflux DX:Esophageal reflux Mild chronic obstructive pul monary disease ([facility] V24, [facility] V28) 03/28/2015 DX:Mild chronic obs tructive pulmonary disease (HCC) Abnormality of gait 07/04/2007 DX:Abnormali ty of gait Adjustment disorder with mix ed anxiety and depressed mood 03/29/2010 DX:Adjustment disorder with mixed anxiety and depressed mood CKD (chronic kidney disease) stage 3, GFR 30-59 ml/min (CMS/HCC V24, CMS/HCC V28) 01/06/2012 DX:CKD (chronic kidney disea se) stage 3, GFR 30-59 ml/min ([facility]) Cognitive disorder 02/07/2011 DX:Cognitive disorder; COMMENT: Seen with Justin Lu 01/2011: Dementia (CMS/HCC V24, CMS/HCC V28) 10/15/2012 DX:Dementia (HCC); COMMENT: Seen with Tabitha, now on Aricept [...] Pulse 89 02/24/2025 9:21 AM EDT Temperature 36.6 ??C (97.8 ??F) 02/12/2025 11:33 AM E DT Respiratory Rate 20 02/17/2025 8:37 AM EDT Oxygen Saturation 98% 02/12/2025 11:33 AM EDT Inhaled Oxygen Concentration - - Weight 106 kg (232 lb 9.6 oz) 02/24/2025 9:21 AM EDT Height 182.9 cm (6') 02/24/2025 9:21 AM EDT Body Mass Index 31.55 02/24/2025 9:21 AM EDT Plan of Treatment Upcoming Encounters Date Type Department Care Team (Late st Contact Info) Description 03/15/2025 8:30 AM EDT Office Visit Orthopedic Surgery - [place] [address] [phone] David Beltre, DPM [address] [address] 04/14/2025 10:00 AM EDT Ancillary Procedure [facility] - [facility] 101 300 [facility] 101 [place] [address] 04/27/2025 10:35 AM EDT Office Visit Pulmonolgy - [place] 175 [facility] 200 [place] [address] Suzie Bates, RAMAN 175 [facility] 200 [place] [address] 05/06/2025 11:00 AM EDT Office Visit Adult Medicine [address] [phone] Ronald Desai MD [address] [place] [phone] 05/27/2025 9:00 AM EDT Office Visit Adult [address] [phone] Magui Pang PA [address] [place] [phone] 06/17/2025 9:30 AM EDT Office Visit Vascular Surgery - [place] [address] [facility] 210 [place] [phone] Elvira Mart MD 300 [facility] 210 [place] [address] 07/27/2025 3:15 PM EDT [facility] [address] [place] [phone] Marcelo Roach MD 100 [facility] 200 [place] [address] Health Maintenance Due Date Last Done Comments [...] age to complete this topic Meningococcal B Vaccine Aged Out No l onger eligible based on patient's age to complete this topic RSV Immunization Patients Under 20 months Aged Out No longer eligible based on patient's age to complete this topic Varicella Vaccines Aged Out No longer eligible based on patient's age to complete this topic Procedures Procedure Name Priority Date/Time Associated Diagnosis Comments XR LUMBAR SPINE 4+ VIEWS Routine 02/17/2025 9:46 AM EDT Lumbar pain XR KNEE 4+ VIEWS BILAT Routine 02/17/2025 9:45 AM EDT Chronic pain of both knees EXTERNAL XRAY REPORT 01/19/2025 EXTERNAL XRAY REPORT 01/18/2025 EXTERNAL XRAY REPORT 01/18/2025 CBC WITH AUTO DIFFERENTIAL Routine 01/04/2025 9:57 AM EDT Rectal bleeding CBC AND DIFFERENTIAL Routine 01/04/2025 9:57 AM EDT Rectal bleeding XR ESOPHAGRAM Routine 12/22/2024 8:04 AM EDT Dysphagia, unspecified type Gastroesophageal reflux disease with esophagitis without hemorrhage Globus sensation XR CHEST 2 VIEWS Routine 12/04/2024 11:2 4 AM EST Asthma-COPD overlap syndrome (CMS/HCC V24, CMS/HCC V28) COPD exacerbation (CMS/HCC V24, CMS/HCC V28) Upper respiratory tract infection, unspecified type COMPREHENSIVE METABOLIC PANEL Routine 10/27/2024 9:11 AM EST Primary hypertension Mixed hyperlipidemia Chronic obstructive pulmonary disease, unspecified COPD type (CMS/HCC V24, CMS/HCC V28) Obstructive sleep apnea syndrome Gastroesophageal reflux disease without esophagitis Stage 3a chronic kidney disease (CMS/HCC V24, CMS/HCC V28) Lumbar radiculopathy S/P cervical spinal fusion Cognitive impairment Muscle twitching LIPID PANEL WITH REFLEX TO DIRECT LDL Routine 10/27/2024 9:11 AM EST Primary hypertension Mixed hyperlipidemia Chronic obstructive pulmonary disease, unspecified COPD type (CMS/HCC V24, CMS/HCC V28) Obstructive sleep apnea syndrome Gastroesophageal reflux disease without esophagitis Stage 3a chronic kidney disease (CMS/HCC V24, CMS/HCC V28) Lumbar radiculopathy S/P cervical spinal fusion Cognitive impairment Muscle twitching HM COLONOSCOPY Routine 04/03/2024 HEPATITIS C SCREENING Routine 06/09/2007 from Last 3 Months or Most Recently Relevant to Health Maintenance Results * XR Lumbar Spine 4+ Views (02/17/2025 9:46 AM EDT) Anatomical Region Laterality Modality Spine, L-spine Radiographic Светлана ging 02/17/2025 12:5 2 PM EDT Impressions 02/17/2025 12:55 PM EDT 1. ??No acute fracture or dislocation. ??Moderate degenerative changes. 2. Multiple sclerotic foci within the pelvis. ??There may be a new sclerotic focus within the left superior acetabulum. ??Recommend CT pelvis to ensure this is a bone island and not a malignant focus. -------- FINAL REPORT -------- Dictated By: Megan Fajardo Dictated Date: 02/17/2025 12:52 ET Assigned Physician: Megan Fajardo Reviewed and Electronically Signed By: Megan Fajardo Signed Date: 02/17/2025 12:55 ET Workstation ID: [id number] Transcribed By: Self Edit Transcribed Date: 02/17/2025 12:52 ET Narrative 02/17/2025 12:55 PM EDT HISTORY: lumbar pain TECHNIQUE: 4 views of the lumbar spine COMPARISON: Lumbar spine radiograph from 11/07/2021 FINDINGS: Vertebral body height is grossly maintained. ??Decreased disc height at L3-L4, L4-L5 with endplate sclerosis. ??Small anterior osteophytes are present at the lower lumbar spine. ??There is mild to moderate neuroforaminal stenosis of the lower lumbar spine. ??The sacroiliac joints are patent. ??Multiple sclerotic foci within the pelvis. ??There may be a new sclerotic focus within the left superior acetabulum. Procedure Note Megan Fajardo MD - 02/17/2025 HISTORY: lumbar pain TECHNIQUE: 4 views of the lumbar spine COMPARISON: Lumbar spine radiograph from 11/07/2021 FINDINGS: Vertebral body height is grossly maintained. Decreased disc height atL3-L4, L4- L5 with endplate sclerosis. Small anterior osteophytes arepresent at the lower lumbar spine. There is mild to moderateneuroforaminal stenosis of the lower lumbar spine. The sacroiliac jointsare patent. Multiple sclerotic foci within the pelvis. There may be anew sclerotic focus within the left superior acetabulum. IMPRESSION: 1. No acute fracture or dislocation. Moderate degenerative changes. 2. Multiple sclerotic foci within the pelvis. There may be a newsclerotic focus within the left superior acetabulum. Recommend CT pelvisto ensure this is a bone island and not a malignant focus. -------- FINAL REPORT -------- Dictated By: Megan Fajardo Dictated Date: 02/17/2025 12:52 ET Assigned Physician: Megan Fajardo Reviewed and Electronically Signed By: Megan Fajardo Signed Date: 02/17/2025 12:55 ET Workstation ID: [id number] Transcribed By: Self Edit Transcribed Date: 02/17/2025 12:52 ET Casey CASTRO IMG XR PROCEDURES Final Result * XR Knee 4+ Views bilat (02/17/2025 9:45 AM EDT) Anatomical Region Laterality Modality Lower Extremities, Knee Bilateral [facility] 02/17/2025 2:24 PM EDT Impressions 02/17/2025 2:29 PM EDT No acute fracture or dislocation of the bilateral knees. ?? -------- FINAL REPORT -------- Dictated By: Megan Fajardo Dictated Date: 02/17/2025 14:24 ET Assigned Physician: Megan Fajardo Reviewed and Electronically Signed By: Megan Fajardo Signed Date: 02/17/2025 14:29 ET Workstation ID: [id number] Transcribed By: Self Edit Transcribed Date: 02/17/2025 14:24 ET Narrative 02/17/2025 2:29 PM EDT HISTORY: knee pain TECHNIQUE: 4 views of the bilateral knees COMPARISON: None FINDINGS: ?? No acute fracture or dislocation is seen. ??There is no joint effusion present. ??Enthesopathy of the patella bilaterally. ??The medial and lateral joint spaces appear normal. Procedure Note Megan Fajardo MD - 02/17/2025 HISTORY: knee pain TECHNIQUE: 4 views of the bilateral knees COMPARISON: None FINDINGS: No acute fracture or dislocation is seen. There is no joint effusionpresent. Enthesopathy of the patella bilaterally. The medial and lateraljoint spaces appear normal. IMPRESSION: No acute fracture or dislocation of the bilateral knees. -------- FINAL REPORT -------- Dictated By: Megan Fajardo Dictated Date: 02/17/2025 14:24 ET Assigned Physician: Megan Fajardo Reviewed and Electronically Signed By: Megan Fajardo Signed Date: 02/17/2025 14:29 ET Workstation ID: [id number] Transcribed By: Self Edit Transcribed Date: 02/17/2025 14:24 ET Casey CASTRO IMG XR PROCEDURES Final Result * External Xray Report (01/19/2025) Only the most recent of3 resultswithin the time period is included. Anatomical Region Laterality Modality Radiographic Светлана ging us Provider Onbase IMG XR PROCEDURES Final Resul t * (ABNORMAL) CBC auto differential (01/04/2025 9:57 AM EDT) WBC 8.5 4.8 - 10.8 K/mcL LAB HEMETOLOGY METHOD 01/04/2025 12:40 PM EDT [facility] RBC 4.70 4.50 - 5.50 M/mcL LAB HEMETOLOGY METHOD 01/04/2025 12:40 PM EDT [facility] Hemoglobin 14.0 13.5 - 17.5 g/dL LAB HEMETOLOGY METHOD 01/04/2025 12:40 PM EDT [facility] Hematocrit 42.0 42.0 - 54.0 % LAB HEMETOLOGY METHOD 01/04/2025 12:40 PM EDT [facility] MCV 89.6 79.0 - 98.0 FL LAB HEMETOLOGY METHOD 01/04/2025 12:40 PM EDT [facility] MCH 29.9 27.0 - 32.0 pcg LAB HEMETOLOGY METHOD 01/04/2025 12:40 PM EDT [facility] MCHC 33.3 32.0 - 37.0 g/dL LAB HEMETOLOGY METHOD 01/04/2025 12:40 PM EDT [facility] RDW 14.6 11.0 - 15.0 % LAB HEMETOLOGY METHOD 01/04/2025 12:40 PM EDT [facility] Platelets 264 130 - 400 K/mcL LAB HEMETOLOGY METHOD 01/04/2025 12:40 PM EDT [facility] MPV 10.3 7.0 - 11.0 FL LAB HEMETOLOGY METHOD 01/04/2025 12:40 PM EDT [facility] NRBC 0.0 <1.0 % LAB HEMETOLOGY METHOD 01/04/2025 12:40 PM EDT [facility] NRBC Absolute 0.00 <0.10 K/mcL LAB [facility] Neutrophils Relative 60.7 % LAB HEMETOLOGY METHOD 01/04/2025 12:40 PM EDT [facility] Lymphocytes Relative 28.2 % LAB HEMETOLOGY METHOD 01/04/2025 12:40 PM EDT [facility] Monocytes Relative 8.4 % LAB HEMETOLOGY METHOD 01/04/2025 12:40 PM EDT [facility] Eosinophils Relative 0.7 % LAB HEMETOLOGY METHOD 01/04/2025 12:40 PM EDT [facility] Basophils Relative 0.8 % LAB HEMETOLOGY METHOD 01/04/2025 12:40 PM EDT [facility] Immature Granulocytes Relative 1.2 % LAB HEMETOLOGY METHOD 01/04/2025 12:40 PM EDT [facility] Neutrophils Absolute 5.13 1.50 - 7.00 K/mcL LAB HEMETOLOGY METHOD 01/04/2025 12:40 PM EDT [facility] Lymphocytes Absolute 2.38 1.00 - 5.00 K/mcL LAB HEMETOLOGY METHOD 01/04/2025 12:40 PM EDT [facility] Monocytes Absolute 0.71 0.20 - 1.00 K/mcL LAB HEMETOLOGY METHOD 01/04/2025 12:40 PM EDT [facility] Eosinophils Absolute 0.06 0.00 - 0.50 K/mcL LAB HEMETOLOGY METHOD 01/04/2025 12:40 PM EDT [facility] Basophils Absolute 0.07 0.00 - 0.20 K/mcL LAB HEMETOLOGY METHOD 01/04/2025 12:40 PM EDT [facility] Immature Granulocytes Absolute 0.10(H) 0.00 - 0.03 K/mcL LAB HEMETOLOGY METHOD 01/04/2025 12:40 PM EDT [facility] Blood Venous blood specimen / Unknown Venipuncture / Unknown 01/04/2025 9:57 AM EDT 01/04/2025 9:57 AM EDT us Ronald Desai MD LAB BLOOD ORDERABLES Final Result [facility] [address] [place] [address], * XR Esophagram (12/22/2024 8:04 AM EDT) [...] Signed Date: 12/22/2024 11:57 ET Workstation ID: [id number] Transcribed By: Self Edit Transcribed Date: 12/22/2024 10:13 ET Resident/PA/ACID PUMP OPERATOR: Dimple Guerrero Narrative 12/22/2024 11:57 AM EDT FINDINGS: Double contrast esophagram performed. COMPARISON: None HISTORY: Patient is a 69 yo M with history of dysphagia, globus sensation. Aboriginal Liaison Officer radiographs: 1 view chest radiograph demonstrates mediastinal [...] M with history of dysphagia, globus sensation. Aboriginal Liaison Officer radiographs: 1 view chest radiograph demonstrates mediastinal [...] Signed Date: 12/22/2024 11:57 ET Workstation ID: [id number] Transcribed By: Self Edit Transcribed Date: 12/22/2024 10:13 ET Resident/PA/ACID PUMP OPERATOR: Dimple Guerrero us Tai CASTRO IMG FLUOROSCOPY PROCEDURES Aylin l [...] Signed Date: 12/04/2024 13:13 ET Workstation ID: [id number] Transcribed By: Self Edit Transcribed Date: 12/04/2024 [...] over the right upper lung is unchanged [id number]. No focal consolidation or pulmonary edema. Pleura: No pleural effusion or pneumothorax. Heart/Mediastinum: Unchanged cardiomediastinal silhouette. Bones : No acute findings. IMPRESSION: No acute cardiopulmonary abnormality. -------- FINAL REPORT -------- Dictated By: Nelli Estrada Dictated Date: 12/04/2024 12:07 ET Assigned Physician: Nelli Estrada Reviewed and Electronically Signed By: Nelli Estrada Signed Date: 12/04/2024 13:13 ET Workstation ID: [id number] Transcribed By: Self Edit Transcribed Date: 12/04/2024 12:07 ET us Magui CASTRO IMG XR PROCEDURES Final Result * (ABNORMAL) Lipid panel with reflex to direct LDL (10/27/2024 9:11 AM EST) Cholesterol 254(H) 0 - 200 mg/dL LAB CHEMISTRY METHOD 10/27/2024 3:28 PM EST [facility] Triglycerides 161(H) 0 - 150 mg/dL LAB CHEMISTRY METHOD 10/27/2024 3:28 PM EST [facility] HDL 59 >=40 mg/dL LAB CHEMISTRY METHOD 10/27/2024 3:28 PM EST [facility] LDL Calculated 163(H) 0 - 100 mg/dL LAB CHEMISTRY METHOD 10/27/2024 3:28 PM EST [facility] VLDL Cholesterol [place] 32.2 mg/dL LAB CHEMISTRY METHOD 10/27/2024 3:28 PM EST [facility] Non HDL Chol. (LDL+VLDL) 195(H) <145 mg/dL LAB CHEMISTRY METHOD 10/27/2024 3:28 PM EST [facility] Chol/HDL Ratio 4.3 0.0 - 4.4 LAB CHEMISTRY METHOD 10/27/2024 3:28 PM EST [facility] Blood Venous blood specimen / Unknown Venipuncture / Unknown 10/27/2024 9:11 AM EST 10/27/2024 9:11 AM EST us Ronald Desai MD LAB BLOOD ORDERABLES Final Result [facility] [address] [place] [address], [place] [phone] * (ABNORMAL) Comprehensive metabolic panel (10/27/2024 9:11 AM EST) Sodium 137 133 - 145 mmol/L LAB CHEMISTRY METHOD 10/27/2024 3:28 PM [facility] Potassium 4.4 3.5 - 5.5 mmol/L LAB CHEMISTRY METHOD 10/27/2024 3:28 PM [facility] Chloride 106 96 - 110 mmol/L LAB CHEMISTRY METHOD 10/27/2024 3:28 PM [facility] CO2 26 21 - 32 mmol/L LAB CHEMISTRY METHOD 10/27/2024 3:28 PM [facility] Anion Gap 5 3 - 11 LAB CHEMISTRY METHOD 10/27/2024 3:28 PM [facility] Glucose 86 70 - 100 mg/dL LAB CHEMISTRY METHOD 10/27/2024 3:28 PM [facility] BUN 24 5 - 25 mg/dL LAB CHEMISTRY METHOD 10/27/2024 3:28 PM [facility] Creatinine 1.63(H) 0.70 - 1.30 mg/dL LAB CHEMISTRY METHOD 10/27/2024 3:28 PM [facility] eGFR 46(L) >=60 mL/min/1. 73m2 LAB CHEMISTRY METHOD 10/27/2024 3:28 PM [facility] Comment:Calculation based on the??Chronic Kidney Disease Epidemiology Collaboration (CKD-EPI) equation refit??without adjustment for race. BUN/Creatinine Ratio 14.7 LAB CHEMISTRY METHOD 10/27/2024 3:28 PM [facility] Calcium 8.5 8.5 - 10.5 mg/dL LAB CHEMISTRY METHOD 10/27/2024 3:28 PM [facility] AST (SGOT) 15 10 - 42 unit/L LAB CHEMISTRY METHOD 10/27/2024 3:28 PM [facility] ALT (SGPT) 43 10 - 60 unit/L LAB CHEMISTRY METHOD 10/27/2024 3:28 PM [facility] Alkaline Phosphatase 116 42 - 121 unit/L LAB CHEMISTRY METHOD 10/27/2024 3:28 PM EST [facility] Total Protein 7.4 6.0 - 8.0 g/dL LAB CHEMISTRY METHOD 10/27/2024 3:28 PM EST [facility] Albumin 3.9 3.2 - 5.0 g/dL LAB CHEMISTRY METHOD 10/27/2024 3:28 PM [facility] Total Bilirubin 0.5 0.0 - 1.4 mg/dL LAB CHEMISTRY METHOD 10/27/2024 3:28 PM EST [facility] Blood Venous blood specimen / Unknown Venipuncture / Unknown 10/27/2024 9:11 AM EST 10/27/2024 9:11 AM EST Ronald Desai MD LAB BLOOD ORDERABLES Final Result Performing Organization Address City/State/[facility] Co de Phone Number [facility] [address] [place] [address], * Colonoscopy (04/03/2024) Colonoscopy no interpretation , abstracted Anatomical Region Laterality Modality Other Historical Provider HEALTH MAINTENANCE Final Result * Hepatitis C Screening (06/09/2007) Pathologist [facility] Hepatitis C Screening abstracted Juliano Brooks MD HEALTH MAINTENANCE Final Result from Last 3 Months or Most Recently Relevant to Health Maintenance Insurance [facility] Advance Directives Documents on File Type Date Recorded 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
--- OUTSIDE RECORDS SUMMARY | 2025-03-01 14:52 | XMS_ITS | Data Portability ---
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 Type C (-180) tympanogram. His globus sensation was evaluated with fiberoptic laryngoscopy which was benign. Discussed possible explanations for his symptoms including reflux as well as position of his uvula on the back surface of his tongue and epiglottis. He does admit to an upcoming neck fusion procedure which may also be an unusual cause of his globus. Given the normal findings it is also possible he has a history of previous glossopharyngeal neuralgia but I feel that is extremely unlikely as he does not have electric shooting pain symptoms [email or web address] Not available 04/17/2024 15:15:34 09/14/2024 09/14/2024 68 year old male with GERD, allergic rhinitis, and NEO presents for evaluation of the throat. He has a history of chronic pharyngitis, dysphagia, and globus sensation. Prior FOLs were unremarkable. He reports the globus sensation at the anterior base of neck, central near the suprasternal space. Oropharynx exam shows pink moist mucosa without erythema or inflammation. Offered FOL today, but patient declined. Recommend continuing PPI 20 mg twice daily with gastroenterology follow up. He may benefit from upper endoscopy or medication change. Recommend OTC reflux gourmet for additional reflux management and melatonin to increase tone of the gastroesophageal sphincter. Reviewed supportive measures for GERD and provided handout. I will refer to gastroenterology for termination clerk management as his symptoms are likely gastrointestinal in etiology. The patient will follow up in our office as needed. We will consider swallow study, imaging, or repeat fiberoptic laryngoscopy if symptoms persist. [email or web address] Not available 09/14/2024 15:44:15 Plan of Treatment Reminders Order Date Submit Date Provider Last Modified By Organization Details Last Modified Time Details Appointments None record ed. Lab None record ed. Referral None record ed. Procedures None record ed. Surgeries None record ed. Imaging None record ed. Medication Orders None record ed. Patient TargetsNo targets recorded. Patient InstructionsNo instructions recorded. Reason for Referral None Reported. Results Created Date Observation Date Name Description Value Unit Range Abnormal Flag Note LastModifiedBy Organization Detail LastModifiedTime 04/20/20 audio gram No observ ation record ed. [email or web address] Not Available 05/2024 16:27:09 06/03/20 24 10/28/2023 imagi ng/di agnos tic resul t No observ ation record ed. [email or web address] Not Available 00:14:27 06/03/20 24 11/06/2022 imagi ng/di agnos tic resul t No observ ation record ed. [email or web address] Not Available 00:14:30 06/03/20 24 11/12/2023 imagi ng/di agnos tic resul t No observ ation record ed. [email or web address] Not Available 00:14:36 06/03/20 24 12/13/2023 imagi ng/di agnos tic resul t No observ ation record ed. [email or web address] Not Available 00:14:46 06/03/20 24 04/04/2020 imagi ng/di agnos tic resul t No observ ation record ed. [email or web address] Not Available 00:14:48 06/03/20 24 07/07/2019 imagi ng/di agnos tic resul t No observ ation record ed. [email or web address] Not Available 00:15:00 06/03/20 24 08/22/2021 imagi ng/di agnos tic resul t No observ ation record ed. [email or web address] Not Available 00:15:03 06/03/20 24 09/25/2019 imagi ng/di agnos tic resul t No observ ation record ed. [email or web address] Not Available 00:15:06 Result Notes None recorded. Problems Name Problem SNOMED Code Status Onset Date Resolution Date Notes Provider Name and Address Organization Details Recorded Time Impacted cerumen 85416828 Active 2014 Impacted cerumen; Location : bilatera l CMS Risk: low risk Con dition: uncontro lled Not Available [facility] 4 02:39:37 Otorrhea of right ear [id number] 75373 Active 2015 Otorrhea , right ear; Note: Date Diagnose d: 6 1:45 PM (H92.11) Not Available [facility] 4 02:39:38 Impacted cerumen of bilatera l ears [id number] 08454 Active 2015 Impacted cerumen, bilatera l; Note: Date Diagnose d: 6 9:22 AM (H61.23) Not Available [facility] 4 02:39:46 Candidal otitis externa 31100320 Active 2016 Candidal otitis externa; Location : right No te: Date Diagnose d: 10/17/2016 2:10 PM (B37.84) Not Available [facility] 4 02:39:39 Bilatera l tinnitus 48013068658 02 Active 2015 Tinnitus , bilatera l; Note: Date Diagnose d: 6 10:22 AM (H93.13) Not Available [facility] 4 02:39:40 Sensorin eural hearing loss of bilatera l ears 683507289 Active 2018 Sensorin eural hearing loss, bilatera l; Note: Date Diagnose d: 09/25/20 19 10:40 AM (H90.3) Not Available [facility] 4 02:39:37 Headache 93299420 Active 2020 Headache , unspecif ied; Note: Date Diagnose d: 1 9:00 AM (R51.9) Not Available [facility] 4 02:39:40 Neck pain 69039058 Active 2020 Cervical alvarado; Note: Date Diagnose d: 1 9:00 AM (M54.2) Not Available [facility] 4 02:39:44 Obstruct marina sleep apnea syndrome 61717220 Active 2022 Obstruct marina sleep apnea (adult) (pediatr ic); Note: Date Diagnose d: 3 9:18 AM (G47.33) Not Available [facility] 4 02:39:40 Sensorin eural hearing loss in left ear 21929608016 109 Active 2020 Sensorin eural hearing loss, unilater al, left ear, with restrict ed hearing on the contrala teral side; Note: Date Diagnose d: 1 9:56 AM (H90.A22 ) Not Available [facility] 4 02:39:35 Refracto ry migraine 367560848 Active 2020 Other migraine , intracta ble, without status migraino bethany; Note: Date Diagnose d: 1 9:53 AM (G43.819 ) Not Available [facility] 4 02:39:36 Bilatera l disorder of Eustachi an tubes 02933679141 31924 Active 2015 Other specifie d disorder s of Eustachi an tube, bilatera l; Note: Date Diagnose d: 6 9:23 AM (H69.83) Not Available [facility] 4 02:39:41 Cellulit is of left external ear 56000778823 80588 Active 2015 Cellulit is of left external ear; Note: Date Diagnose d: 6 9:24 AM (H60.12) Not Available [facility] 4 02:39:43 Bilatera l earache 426927580 Active 2017 Otalgia, bilatera l; Note: Date Diagnose d: 8 2:32 PM (H92.03) Not Available [facility] 4 02:39:44 Posterio r rhinorrh ea 82957679 Active 2016 Postnasa l drip; Note: Date Diagnose d: 7 2:25 PM (R09.82) Not Available [facility] 4 02:39:46 Infectiv e otitis externa of left ear 66959534193 33113 Active 2016 Other infectiv e otitis externa, left ear; Note: Date Diagnose d: 05/15/2017 12:29 PM (H60.392 ) Not Available [facility] 4 02:39:41 Mixed conducti ve and sensorin eural hearing loss of right ear 80157185547 105 Active 2020 Mixed conducti ve and sensorin eural hearing loss, unilater al, right ear with restrict ed hearing on the contrala teral side; Note: Date Diagnose d: 1 9:56 AM (H90.A31 ) Not Available [facility] 4 02:39:45 Infectiv e otitis externa of right ear 10112345394 09277 Active 2016 Other infectiv e otitis externa, right ear; Note: Date Diagnose d: 7 11:45 AM (H60.391 ) Not Available [facility] 4 02:39:45 Acute pharyngi tis 181864845 Completed 201602/25/2024 Pharyngi tis (acute) NOS; Note: Date Diagnose d: 7 2:23 PM (J02.9) Note: Date Diagnose d: 7 2:23 PM (J02.9) Not Available [facility] 4 01:05:05 Disorder of right Eustachi an tube 41625375003 20763 Active 2019 Other specifie d disorder s of Eustachi an tube, right ear; Note: Date Diagnose d: 0 1:01 PM (H69.81) Not Available [facility] 4 02:39:34 Impacted cerumen in right ear 36988640138 81945 Active 2016 Impacted cerumen, right ear; Note: Date Diagnose d: 7 10:27 AM (H61.21) Not Available [facility] 4 02:39:33 Acute frontal sinusiti s 23157499 Active 2018 Acute frontal sinusiti s, unspecif ied; Location : right No te: Date Diagnose d: 9 2:09 PM (J01.10) Not Available [facility] 4 02:39:42 Dizzines s and giddines s 366827263 Active 2016 Dizzines s and giddines s; Note: Date Diagnose d: 7 2:23 PM (R42) Not Available [facility] 4 02:39:45 Dysphagi a 53274998 Active 2017 Dysphagi a, unspecif ied; Note: Date Diagnose d: 5 3:16 PM (787.20) ; Start Date : 11/03/19 15 Dysph agia, unspecif ied; Note: Date Diagnose d: 8 2:32 PM (R13.10) Not Available [facility] 4 02:39:41 Acute serous otitis media of bilatera l ears 63892917058 17895 Active 2018 Acute serous otitis media, bilatera l; Note: Date Diagnose d: 9 10:37 AM (H65.03) Not Available [facility] 4 02:39:44 Allergic rhinitis 50925217 Active 2023 Other allergic rhinitis ; Note: Date Diagnose d: 4 2:26 PM (J30.89) Not Available [facility] 4 02:39:36 Chronic pharyngi tis 945286 Active 2018 Chronic sore throat; Note: Date Diagnose d: 10/13/20 19 10:02 AM (J31.2) Not Available [facility] 4 02:39:38 Chronic mycotic otitis externa 174101920 Active 2016 Chronic mycotic otitis externa; Note: Date Diagnose d: 10/17/2016 2:04 PM (380.15) Not Available [facility] 4 02:39:34 Feeling of lump in throat 486534773 Active 2023 DANNIELLE PATE MD [address],[place] [address], [place], [address] , [facility] [place] 4 15:14:25 Sensorin eural hearing loss of bilatera l ears 224851631 Active 2023 DANNIELLE PATE MD [address],[facility], [place], [address] , [facility] [place] 4 15:14:36 Impacted cerumen in left ear 55557934455 93369 Active 2023 Impacted cerumen, left ear; Note: Date Diagnose d: 12/13/2023 11:24 AM (H61.22) Not Available [facility] 4 02:39:35 Acute serous otitis media of right ear 62359251140 43920 Active 2020 Acute serous otitis media, right ear; Note: Date Diagnose d: 9:54 AM (H65.01) Acute serous otitis media, right ear; Note: Date Diagnose d: 9 2:10 PM (H65.01) ; Start Date : 07/07/20 19 Not Available [facility] 4 02:39:36 Chronic rhinitis 44751788 Active 2023 Chronic rhinitis ; Note: Date Diagnose d: 4 4:00 PM (J31.0) Not Available [facility] 4 02:39:37 Examinat ion of ear Active 2023 Encounte r for examinat ion of ears and hearing without abnormal findings ; Note: Date Diagnose d: 12/18/2023 11:03 AM (Z01.10) Not Available [facility] 4 02:39:37 Acute pharyngi tis 984256990 Active 2023 Sore throat (acute) NOS; Note: Date Diagnose d: 12/13/2023 11:24 AM (J02.9) Pharyn gitis (acute) NOS; Note: Date Diagnose d: 7 2:23 PM (J02.9) ; Start Date : 04/03/20 17 Not Available [facility] 02:39:43 Gastroes ophageal reflux disease without esophagi tis 964121112 Active 2023 MATTHEW KEARNEY-Melinda [address],[place] [address], [facility] [place], [address] , [place] - [facility] 4 15:43:04 Problem Notes None recorded. Procedures Surgical History Date Name Laterality Status Provider Name and Address Organization Details Recorded Time 04/17/2024 FOL_DP completed DANNIELLE PATE MD [address] [place] [address],[place] [address], [place], [address], [facility] - [facility] 04/17/2024 15:14:16 04/17/2024 Air & Speech Audio with Tymps - 63603, 69347 & 38763 completed LUIS A MOELLER MA, CCC-A [address],[place] [address], [place], [address], [facility] - [facility] 04/17/2024 14:18:53 Imaging Results Imaging Date Name Status LastModified by Organiz ation Details LastModified Time 04/20/2024 audiogram completed [email or web address] Information n ot available 04/20/2024 16:27:09 10/28/2023 imaging/diagno stic result completed Information not available 06/03/2024 00:14:27 11/06/2022 imaging/diagno stic result completed Information not available 06/03/2024 00:14:30 11/12/2023 imaging/diagno stic result completed Information not available 06/03/2024 00:14:36 12/13/2023 imaging/diagno stic result completed Information not available 06/03/2024 00:14:46 04/04/2020 imaging/diagno stic result completed Information not available 06/03/2024 00:14:48 07/07/2019 imaging/diagno stic result completed Information not available 06/03/2024 00:15:00 08/22/2021 imaging/diagno stic result completed Information not available 06/03/2024 00:15:03 09/25/2019 imaging/diagno stic result completed Information not available 06/03/2024 00:15:06 Procedure Notes None recorded. Medical Equipment None Reported. Allergies No known drug allergies Medications Name Sig Start Date Stop Date Status Note LastModified by Organization Details LastModified Time cyclobenz aprine 10 mg tablet TAKE 1 TABLET TWICE DAILY NEEDED FOR MUSCLE SPASM.MA Y CAUSE DROWSINE SS.DONT DRIVE active Not Available Not Available No t Available Nasal Mentor (oxymetaz oline) 0.05 % 08/22 completed Medicati on ID: [id number] B rand Name: Nasal Mentor (oxymeta zoline) Send Method: E-Prescr ibed Sub s Allowed: subs OK Speci al Instruct ion: USE 2 SPRAY IN EACH NOSTRIL TWICE A DAY FOR 3 DAYS Med icationG enericNa me: Nasal Mentor (oxymeta zoline) Not Available Not Available Not Available prednison e 10 mg tablet TAKE 4 TABS DAILY X 3DAYS 3 TABS DAILY X 3DAYS 2 TABS DAILY X 3DAYS 1 TAB DAILY X 3DAYS 04/23 completed Not Available Not Available Not Available doxycycli ne hyclate 100 mg capsule TAKE 1 CAPSULE BY MOUTH TWICE A DAY 04/23 completed Not Available Not Available Not Available ipratropi um 0.5 mg-albute rol 3 mg (2.5 mg base)/3 mL nebulizat ion soln INHALE 3 ML INTO THE LUNGS 4 TIMES DAILY NEEDED (SOB/ WHEEZING ). active Not Available Not Available No t Available donepezil 5 mg tablet 04/05 completed Medicati on ID: [id number] B rand Name: donepezi l Send Method: E-Prescr ibed Sub s Allowed: subs OK Medic ationGen ericName : donepezi l Not Available Not Available Not Available ketoconaz ole 2 % shampoo 08/22 completed Medicati on ID: [id number] B rand Name: ketocona zole Sen d Method: E-Prescr ibed Sub s Allowed: subs OK Medic ationGen ericName : ketocona zole Not Available Not Available Not Available cetirizin e 10 mg tablet active Medicati on ID: [id number] B rand Name: cetirizi ne Send Method: E-Prescr ibed Sub s Allowed: subs OK Medic ationGen ericName : cetirizi ne Not Available Not Available Not Available cefpodoxi me 200 mg tablet TAKE 1 TABLET BY MOUTH TWICE A DAY 04/23 completed Not Available Not Available Not Available azithromy mady 250 mg tablet TAKE 2 TABLETS BY MOUTH TODAY, THEN TAKE 1 TABLET DAILY FOR 4 DAYS DIRECTED 04/23 completed Not Available Not Available Not Available alprazola m 1 mg tablet 12/27 completed Medicati on ID: [id number] D uration Value: 1 Reason: () Brand Name: alprazol am Send Method: E-Prescr ibed Sub s Allowed: subs OK Speci al Instruct ion: TAKE 1 TABLET BY MOUTH EVERY DAY NEEDED FOR ANXIETY Medicati onGeneri cName: alprazol am Not Available Not Available Not Available tizanidin e 4 mg tablet TAKE 1 TABLET BY MOUTH DAILY NEEDED FOR MUSCLE SPASMS. active Not Available Not Available No t Available prednison e 20 mg tablet TAKE 3 TABS ORALLY FOR 3 DAYS, 2 TABS FOR 3 DAYS, 1 TAB FOR 3 DAYS 04/23 completed Not Available Not Available Not Available lovastati n 40 mg tablet 01/04 completed Medicati on ID: [id number] D uration Value: 90 Brand Name: lovastat in Send Method: E-Prescr ibed Sub s Allowed: subs OK Speci al Instruct ion: TAKE 1 TAB BY MOUTH AT BEDTIME. Medicat ionGener icName: lovastat in Not Available Not Available Not Available prednison e 5 mg tablet 04/05 completed Medicati on ID: [id number] B rand Name: predniso ne Send Method: E-Prescr ibed Sub s Allowed: subs OK Medic ationGen ericName : predniso ne Not Available Not Available Not Available fexofenad ine 180 mg tablet TAKE 1 TABLET BY MOUTH EVERYDAY AT BEDTIME active Not Available Not Available No t Available ciproflox acin 500 mg tablet TAKE 1 TABLET BY MOUTH 1 HOUR BEFORE PROCEDUR E AND 1 TAB 10 HOURS AFTER PROCEDUR E active Not Available Not Available No t Available fenofibra te micronize d 200 mg capsule 04/05 completed Medicati on ID: [id number] D uration Value: 90 Brand Name: fenofibr ate microniz ed Send Method: E-Prescr ibed Sub s Allowed: subs OK Speci al Instruct ion: TAKE 1 CAPSULE BY MOUTH EVERY DAY BEFORE BREAKFAS T Medica tionGene ricName: fenofibr ate microniz ed Not Available Not Available Not Available aspirin 81 mg tablet,de layed release TAKE 1 TABLET BY MOUTH EVERY DAY active Not Available Not Available No t Available doxycycli ne monohydra te 100 mg tablet TAKE 1 TABLET BY MOUTH TWICE A DAY FOR 10 DAYS 04/23 completed Not Available Not Available Not Available pantopraz ole 20 mg tablet,de layed release active Medicati on ID: [id number] B rand Name: pantopra zole Sen d Method: E-Prescr ibed Sub s Allowed: subs OK Medic ationGen ericName : pantopra zole Not Available Not Available Not Available Bactroban 2 % topical cream 1 a small amount to affected area 04/23 completed Medicati on ID: [id number] D uration Value: 10 Brand Name: Bactroba n Send Method: E-Prescr ibed Sub s Allowed: subs OK Medic ationGen ericName : Bactroba n Medica tion ID: [id number] D uration Value: 10 Brand Name: Bactroba n Send Method: E-Prescr ibed Sub s Allowed: subs OK Medic ationGen ericName : Bactroba n Not Available Not Available Not Available lorazepam 0.5 mg tablet 01/04 completed Medicati on ID: [id number] D uration Value: 2 Brand Name: lorazepa m Send Method: E-Prescr ibed Sub s Allowed: subs OK Speci al Instruct ion: TAKE 1 TABLET BY MOUTH EVERY DAY MAY REPEAT ONCE PRIOR TO MRI FOR ANGELA STROPHOB IA Medic ationGen ericName : lorazepa m Not Available Not Available Not Available lorazepam 2 mg tablet TAKE PRIOR TO PROCEDUR E 04/23 completed Not Available Not Available Not Available diazepam 2 mg tablet 08/22 completed Medicati on ID: [id number] D uration Value: 60 Brand Name: diazepam Send Method: E-Prescr ibed Sub s Allowed: subs OK Speci al Instruct ion: TAKE 1 OR 2 TABLETS BY MOUTH 3 TIMES A DAY (INSUR MAX 180/60 DAY) Med icationG enericNa me: diazepam Not Available Not Available Not Available benzonata te 100 mg capsule TAKE 1 CAPSULE BY MOUTH 3 TIMES DAILY NEEDED FOR COUGH FOR UP TO 14 DAYS. 04/23 completed Not Available Not Available Not Available pantopraz ole 40 mg tablet,de layed release 07/07 completed Medicati on ID: [id number] Du ration Value: 90 Reason: () Brand Name: pantopra zole Sen d Method: E-Prescr ibed Sub s Allowed: subs OK Speci al Instruct ion: TAKE 1 TABLET BY MOUTH EVERY DAY Medi cationGe nericNam e: pantopra zole Not Available Not Available Not Available ferrous sulfate 325 mg (65 mg iron) tablet 11/04 completed Medicati on ID: [id number] B rand Name: ferrous sulfate Send Method: E-Prescr ibed Sub s Allowed: subs OK Speci al Instruct ion: TAKE 1 TABLET BY MOUTH EVERY DAY Medi cationGe nericNam e: ferrous sulfate Not Available Not Available Not Available clotrimaz ole-betam ethasone 1 %-0.05 % topical cream 04/05 completed Medicati on ID: [id number] B rand Name: clotrima zole-bet amethaso ne Send Method: E-Prescr ibed Sub s Allowed: subs OK Medic ationGen ericName : clotrima zole-bet amethaso ne Not Available Not Available Not Available losartan 25 mg tablet TAKE 1 TABLET BY MOUTH EVERY DAY active Not Available Not Available No t Available clotrimaz ole 1 % topical solution 04/23 completed Medicati on ID: [id number] D uration Value: 14 Prescri bed By Name: JUANITO Leahy nd Name: clotrima nereyda [place] d Method: E-Prescr ibed Sub s Allowed: subs OK Speci al Instruct ion: 4 drops to affected ear three times a day Medi cationGe nericNam e: clotrima zole Med ication ID: [id number] D uration Value: 14 Prescri bed By Name: JUANITO Leahy nd Name: clotriandry zole Sen d Method: E-Prescr ibed Sub s Allowed: subs OK Speci al Instruct ion: 4 drops to affected ear three times a day Medi cationGe nericNam e: clotrima zole Not Available Not Available Not Available gabapenti n 300 mg capsule TAKE 1 CAPSULE BY MOUTH EVERY EIGHT HOURS NEEDED NERVE PAIN active Not Available Not Available No t Available omeprazol e 20 mg capsule,d elayed release 2020 active Medicati on ID: [id number] B rand Name: omeprazo le Send Method: E-Prescr ibed Sub s Allowed: subs OK Medic ationGen ericName : omeprazo le Not Available Not Available Not Available hydrocort isone 2.5 % topical cream 12/27 completed Medicati on ID: [id number] Du ration Value: 30 Reason: () Brand Name: hydrocor tisone S end Method: E-Prescr ibed Sub s Allowed: subs OK Speci al Instruct ion: APPLY TO AFFECTED AREAS, DAILY OR TWICE DAILY, DIRECTED . Medica tionGene ricName: hydrocor tisone Not Available Not Available Not Available monteluka st 10 mg tablet TAKE 1 TABLET BY MOUTH AT BEDTIME active Not Available Not Available No t Available codeine 10 mg-guaife nesin 100 mg/5 mL oral liquid 07/07 completed Medicati on ID: [id number] D uration Value: 14 Reason: () Brand Name: codeine- guaifene sin Send Method: E-Prescr ibed Sub s Allowed: subs OK Speci al Instruct ion: TAKE 5ML BY MOUTH 4 TIMES A DAY NEEDED FOR COUGH Me dication GenericN jazmín: codeine- guaifene sin Not Available Not Available Not Available furosemid e 20 mg tablet active Medicati on ID: [id number] B rand Name: furosemi de Send Method: E-Prescr ibed Sub s Allowed: subs OK Medic ationGen ericName : furosemi de Not Available Not Available Not Available gabapenti n 100 mg capsule TAKE 2 CAPSULES BY MOUTH AT BEDTIME 04/23 completed Not Available Not Available Not Available lorazepam 1 mg tablet TAKE 1 TABLET BY MOUTH 30 MINUTES BEFORE THE MRI SCAN FOR CLAUSTRO PHOBIA active Not Available Not Available No t Available polyethyl yvonne glycol 3350 17 gram/dose oral powder PLEASE SEE ATTACHED FOR DETAILED DIRECTIO NS active Not Available Not Available No t Available lovastati n 20 mg tablet 07/07 completed Medicati on ID: [id number] Du ration Value: 90 Reason: () Brand Name: lovastat in Send Method: E-Prescr ibed Sub s Allowed: subs OK Speci al Instruct ion: TAKE 1 TAB BY MOUTH AT BEDTIME. Medicat ionGener icName: lovastat in Not Available Not Available Not Available methylpre dnisolone 4 mg tablets in a dose pack TAKE 6 TABLETS ON DAY 1 DIRECTED ON PACKAGE AND DECREASE BY 1 TAB EACH DAY FOR A TOTAL OF 6 DAYS 04/23 completed Not Available Not Available Not Available albuterol sulfate HFA 90 mcg/actua tion aerosol inhaler PLEASE SEE ATTACHED FOR DETAILED DIRECTIO NS active Not Available Not Available No t Available hydroxyzi ne HCl 10 mg tablet 04/05 completed Medicati on ID: [id number] B rand Name: hydroxyz ine HCl Send Method: E-Prescr ibed Sub s Allowed: subs OK Medic ationGen ericName : hydroxyz ine HCl Not Available Not Available Not Available fluticaso ne propionat e 50 mcg/actua tion nasal spray,bethany pension INSTILL 2 SPRAYS IN EACH NOSTRIL ONCE A DAY active Not Available Not Available No t Available doxycycli ne hyclate 100 mg tablet TAKE 1 TABLET BY MOUTH TWICE A DAY active Not Available Not Available No t Available dicyclomi ne 10 mg capsule active Medicati on ID: [id number] B rand Name: dicyclom ine Send Method: E-Prescr ibed Sub s Allowed: subs OK Medic ationGen ericName : dicyclom ine Not Available Not Available Not Available ipratropi um bromide 21 mcg (0.03 %) nasal spray 2 spray into both nostrils 07/07 completed Medicati on ID: [id number] [place] By Name: JUANITO Leahy nd Name: Atrovent Send Method: E-Prescr ibed Sub s Allowed: subs OK Medic ationGen ericName : Atrovent Not Available Not Available Not Available loratadin e 10 mg tablet TAKE 1 TABLET BY MOUTH EVERY DAY active Not Available Not Available No t Available Murine Ear 6.5 % drops PLEASE SEE ATTACHED FOR DETAILED DIRECTIO NS active Not Available Not Available No t Available diazepam 5 mg tablet PLEASE SEE ATTACHED FOR DETAILED DIRECTIO NS active Not Available Not Available No t Available amoxicill in 875 mg-potass ium clavulana te 125 mg tablet TAKE 1 TABLET BY MOUTH TWICE A DAY FOR 7 DAYS 04/23 completed Not Available Not Available Not Available amoxicill in 500 mg-potass ium clavulana te 125 mg tablet TAKE 1 TABLET BY MOUTH THREE TIMES A DAY FOR 10 DAYS 04/23 completed Not Available Not Available Not Available oxycodone 5 mg tablet TAKE 1 TABLET BY MOUTH EVERY 4 TO 6 HOURS NEEDED FOR PAIN active Not Available Not Available No t Available neomycin- polymyxin -hydrocor t 3.5 mg-10,000 unit/mL-1 % ear drops,bethany p 08/22 completed Medicati on ID: [id number] P spike d By Name: JUANITO Cummings nd Name: neomycin -polymyx in-HC Se nd Method: E-Prescr ibed Sub s Allowed: subs OK Speci al Instruct ion: 4 drops to affected ear BID X 14 days Med icationG enericNa me: neomycin -polymyx in-HC Not Available Not Available Not Available Valeria-Lant a 200 mg-200 mg-20 mg/5 mL oral suspensio n TAKE 30 ML BY MOUTH 4 TIMES DAILY NEEDED FOR OTHER. (NOT COVERED) 04/23 completed Not Available Not Available Not Available TobraDex 0.3 %-0.1 % eye drops,bethany pension 08/22 completed Medicati on ID: [id number] P spike d By Name: JUANITO Walter nd Name: TobraDex Send Method: E-Prescr ibed Sub s Allowed: subs OK Speci al Instruct ion: Instill 4 drops in the affect ear BID for 10 days Med icationG enericNa me: TobraDex Not Available Not Available Not Available ezetimibe 10 mg tablet TAKE 1 TABLET BY MOUTH DAILY FOR CHOLESTE ROL active Not Available Not Available No t Available Vitamin D3 25 mcg (1,000 unit) tablet TAKE 1 TABLET BY MOUTH EVERY DAY active Not Available Not Available No t Available cyclobenz aprine 5 mg tablet TAKE 1 TABLET BY MOUTH 2 TIMES DAILY NEEDED FOR MUSCLE SPASMS. 04/23 completed Not Available Not Available Not Available Ciprodex 0.3 %-0.1 % ear drops,bethany pension 4 drop into both ears 04/23 completed Medicati on ID: [id number] D uration Value: 7 Prescri bed By Name: JUANITO Leahy nd Name: Ciprodex Send Method: E-Prescr ibed Sub s Allowed: subs OK Medic ationGen ericName : Ciprodex Medicat ion ID: [id number] D uration Value: 7 Prescri bed By Name: JUANITO Leahy nd Name: Ciprodex Send Method: E-Prescr ibed Sub s Allowed: subs OK Medic ationGen ericName : Ciprodex Not Available Not Available Not Available rosuvasta tin 20 mg tablet 08/22 completed Medicati on ID: [id number] B rand Name: rosuvast atin Sen d Method: E-Prescr ibed Sub s Allowed: subs OK Medic ationGen ericName : rosuvast atin Not Available Not Available Not Available sodium fluoride 1.1 % dental paste 04/05 completed Medicati on ID: [id number] B rand Name: fluoride (sodium) Send Method: E-Prescr ibed Sub s Allowed: subs OK Speci al Instruct ion: USE DIRECTED Medicat ionGener icName: fluoride (sodium) Not Available Not Available Not Available Pulmicort Flexhaler 180 mcg/actua tion breath activated 01/04 completed Medicati on ID: [id number] D uration Value: 30 Brand Name: Pullina t Flexhale r Send Method: E-Prescr ibed Sub s Allowed: subs OK Speci al Instruct ion: INHALE 1 PUFF INTO THE LUNGS 2 TIMES DAILY. M edicatio nGeneric Name: Pulmicor t Flexhale r Not Available Not Available Not Available Combivent Respimat 20 mcg-100 mcg/actua tion solution for inhalatio n INHALE 1 PUFF EVERY 4 TO 6 HOURS active Not Available Not Available No t Available Repatha SureClick 140 mg/mL subcutane ous pen injector active Not Available Not Available Not Available Lactobaci llus acidophil us 0.5 mg (100 million cell) tablet TAKE 1 TABLET BY MOUTH TWICE A DAY active Not Available Not Available No t Available Wixela Inhub 500 mcg-50 mcg/dose powder for inhalatio n INHALE 1 DOSE BY MOUTH TWICE DAILY. RINSE MOUTH AFTER USE active Not Available Not Available No t Available Vitals Date Recorded Body height Body mass index (BMI) Body weight Provider Name and Address Organization Details Last Updated DateTime 04/17/2024 182.88 cm 31.2 kg/m2 076724.25 g Kierra Zaidi [place] - [facility] 04/17/2024 14:48:57 Date Recorded Body height Body weight Provider Name and Address Organization Details Last Updated DateTime 04/23/2024 182.88 cm 348806.25 g Leena Mixon [place] - [facility] 04/23/2024 15:45:40 Date Recorded Body height Provider Name an d Address Organization Details Last Updated DateTime 09/14/2024 182.88 cm Yvan Webb [place] - [facility] 09/14/2024 14:28:03 Social History None recorded. Functional Status None recorded. Mental Status None recorded. Family History Nothing Reported. Medical History No medical history recorded. Past Encounters Encounter ID Performer Location Encounter Start Date Encounter Closed Date Diagnosis/Indication Diagnosis SNOMED-CT Code Diagnosis ICD10 Code Diagnosis Note [id number] DANNIELLE PATE MD [facility] [address] [address] 04/17/2024 13:21:59 04/17/2024 15:29:03 Sensorineural hearing loss of bilateral ears 218787846 H90.3 Feeling of lump in throat 628944539 R09.89 [id number] JUAN SCHAEFER MD [facility] [address] [address] 04/23/2024 15:29:40 04/23/2024 16:16:21 Headache 65589505 R51.9 Both auricles, external auditory canals and tympanic membranes appear normal. I reviewed his recent audiometri c testing and tympanomet ry. While there are slight signs of eustachian tube dysfunctio n, I do not think that this is causing his bilateral facial and periauricu lar pressure sensation, particular ly exacerbate d by exertion. This much more likely represents a chronic headache phenomenon than an isolated sinus or ear problem. I recommende d he pursue neurologic al evaluation for evaluation of chronic headaches. [id number] ONEIDA RAE PA-C [facility] [address] [place] [address] 09/14/2024 14:20:38 09/14/2024 15:19:36 Feeling of lump in throat 677347852 R09.89 Allergic rhinitis 292971 04 J30.89 Gastroesop hageal reflux disease without esophagitis 311622297 K21.9 Health Concerns Section Related Observation LastModified by Organization Detai ls LastModified Time None Recorded Concern Status LastModified by Organization Details LastModified Time None Recorded Advance Directives Directive None Recorded Payers Insurance Date Sequence Insurance Name Policy Number Policy Leigh Covered Member ID Leigh Member ID Guarantor Name 09/13/2024 1 [facility] [id number] 1 Pete Ceballos [id number] Pete Ceballos Notes Date Note Type Note Provider Name and Address Organization Details Recorded Time 04/17/2024 text/html globusabout 6 monthspressure on ears - feels hearing is back to normalreflux - uses meds omeprazole BID with good control. may use baking soda occasionalno dysphagia for liquid or solidsanticipates a neck fusion in the future seen on 02/05/24 with Rosalva for recurrent sinusitis.States it starts with aural pressure and scratchy throat then phlegm production and globus sensation at the sternal notch. Nasal drainage is sometimes yellow. Does not present with facial pressure in sinus distribution. Sense of smell always at baseline, fine. States that he just had a sinus infection that presented this way and he was given antibiotics a few weeks ago, doesn't remember what antibiotic. Feels like it cleared up some of his symptoms DANNIELLE PATE MD [address],[place] [address], [place], [address], [place] - [facility] 04/17/2024 15:16:04 04/23/2024 text/html Patient comes in today for evaluation of recurring facial and periauricular pressure sensation. He notes that when he bends over, he will have pressure sensation that encompasses the cheek, temporal, and ear regions bilaterally. He does not notice any fluctuations in hearing. Patient reports having head pain and headaches every single day. JUAN SCHAEFER MD [address],[place] [address], [place], [address], [facility] - [facility] 04/23/2024 16:18:14 09/14/2024 text/html 68 year old male with GERD, allergic rhinitis, and NEO presents for evaluation of the throat. He has a history of chronic pharyngitis, dysphagia, and globus sensation. He reports a central lump or 'scab' in his throat at the base of neck anteriorly for one year. He presents 6 weeks after cervical spine surgery. He endorses occasional pain with swallowing, but feels its been getting better since surgery. He has been taking a 20 mg PPI twice daily for years, and notices significant heart burn improvement with this regimen. He has never had an upper endoscopy. He takes allergy medication as needed. He cannot tolerate CPAP. Denies choking, dysphonia, hemoptysis, weight change, or night sweats. Never smoker. No alcohol. DANNIELLE PATE MD [address],[facility] [address], [place], [address], [facility] - [facility] 09/14/2024 16:05:07
--- OUTSIDE RECORDS SUMMARY | 2025-03-01 14:52 | XMS_ITS | Encounter Summary ---
Author Organization [facility] Address [address] [place] [address] Care Team Providers Care Senior Software Systems Engineer Name Role Phone Ronald Desai MD Primary Care Provider Unav ailable Encounter Details Date Type Department Care Team (Late st Contact Info) Description 07/19/2023 Scanned Document [facility] [address] [address] Babar Cage MD [address] [place] [address] Social History Tobacco Use Types Packs/Day Years [...] on filedocumented in this encounter Care Teams Senior Software Systems Engineer Relationship Specialty Start Date End Date Ronald Desai MD PCP - General Medicine Hospitalist 07/18/23 documented as of this encounter
--- NOTE | 2025-03-01 14:54 | HO.SPINEOV ---
Intake Visit Reasons: Lumbar pain Intake Note: Mr. Ceballos is here today c/o low back pain. Glass Blower Helper Required: No Allergies adhesive tape Allergy (Verified 08/28/24 11:52) Itching atorvastatin Allergy (Verified 08/28/24 11:52) Muscle cramps mite-Dermatophagoides farinae, thomas [dust mite - [place]] Allergy (Verified 08/28/24 11:52) Unknown pravastatin Allergy (Verified 08/28/24 11:52) Unknown Assessment & Plan Assessment & Plan (1) Lumbar stenosis with neurogenic claudication: Code(s): M48.062 - Spinal stenosis, lumbar region with neurogenic claudication Category: Medical Plan Mr Ceballos returns in follow-up today. He continues to have the shooting pains down his legs. He particularly notices if he steps off a curb or onto some kind of uneven terrain. Dr. Tapia is previously reviewed his MRI done at [facility] last year showing what looks like moderate stenosis at L3-4 and offered him decompression. We again discussed this at length, understanding that he did not have excellent results from the decompression at L2-3 and ended up having to stay in the hospital for 3 days with a Aguirre catheter an intense muscle spasms. At this point it is an elective procedure that we would do for his pain and not anything that we have to force the issue. He is going to think about it and get back to me if he would like to proceed. Total amount of time spent in this visit was 20 minutes in discussion of symptoms, lumbar imaging results and subsequent plan of care Peter Tapia MD,PhD [facility] Coding Level of Care Code Est Pt Level 3 (17344) Diagnoses Lumbar stenosis with neurogenic claudication M48.062
== END 2025-03-01 16:02 | disposition home or self-care (01) ==
LOC: HO.HNS 14:47
PROVIDERS: PCP Internal Medicine; Visit Provider Physician Assistant
DX: M48.062 Spinal stenosis, lumbar region with neurogenic claudication (principal)
CPT/HCPCS: 99213

== ENCOUNTER → 2025-03-01 14:47 | Outpatient (BNVA) | payer MEDICARE, SELFPAY | PROVIDERS: PCP Internal Medicine; Visit Provider Physician Assistant | DX: M48.062 Spinal stenosis, lumbar region with neurogenic claudication (principal) | CPT/HCPCS: 99212 ==

== ENCOUNTER 2025-06-11 12:02 | Outpatient (AMB) | payer MEDICARE, SELFPAY ==
--- OUTSIDE RECORDS SUMMARY | 2025-06-10 08:14 | XMS_ITS | Encounter Summary ---
Author Organization [facility] Address [address] [place] [address] Care Team Providers Care Lockstitch Topstitcher Name Role Phone Ronald Desai MD Primary Care Provider [phone] Reason for Referral * Imaging (Routine) - Authorized Specialty Diagnoses / Procedures Referred By Contac t Referred To Contact Radiology Diagnoses Abnormal CT scan, pelvis Elevated PSA Procedures NM Bone/Joint Scan Whole Body Ronald Desai MD [address] [place] [address] Phone: tel: fax: [address] Phone: tel: Referral ID Status Reason Start Date Expiration Date V isits Requested Visits Authorized [id number] Authorized 06/04/2025 06/04/2026 2 2 Reason for Visit * Imaging (Routine) - Authorized Specialty Diagnoses / Procedures Referred By Contac t Referred To Contact Radiology Diagnoses Abnormal CT scan, pelvis Elevated PSA Procedures NM Bone/Joint Scan Whole Body Ronald Desai MD [address] [place] [address] Phone: tel: fax: [address] Phone: tel: Referral ID Status Reason Start Date Expiration Date V isits Requested Visits Authorized [id number] Authorized 06/04/2025 06/04/2026 2 2 Encounter Details Date Type Department Care Team (Latest Contact Info) Description 06/10/2025 8:14 AM EDT Hospital Encounter [facility] Nuclear Medicine [address] [place] [phone] Ab[address] scan, pelvis; Elevated PSA Social History Tobacco Use Types [...] Care Team (Late st Contact Info) Description 06/17/2025 9:30 AM EDT Office Visit Vascular Surgery - [facility] [address] [facility] [address] [place] [address] Elvira Mart MD [address] [place] [address] 07/19/2025 8:30 AM EDT Office Visit Orthopedic Surgery [facility] [address] [facility] [address] [place] [phone] David Beltre DPM 175 [facility] [address] [place] [address] 07/27/2025 3:15 PM EDT Office Visit Nephrology - [facility] [address] [place] [address] Marcelo Roach MD [address] [facility] [address] [place] [address] 08/11/2025 8:30 AM EDT Office Visit Pulmonolgy - [facility] 175 [facility] [address] [place] [address] Suzie Bates NP [address] [place] [address] 09/13/2025 3:00 PM EST Office Visit [address] [phone] Ronald Desai MD [address] [place] [address] 09/22/2025 8:30 AM EST Office Visit [address] [phone] Magui Pang PA [address] [place] [address] Pending Results Name Type Priority Associated Diagnoses Date /Time NM Bone/Joint Scan Whole Body Imaging Routine Abnormal CT scan, pelvis Elevated PSA 06/10/2025 12:22 PM EDT Scheduled Orders Name Type Priority Associated Diagnoses Orde r Schedule NM Bone/Joint Scan Whole Body Imaging Routine Abnormal CT scan, pelvis Elevated PSA Once for 1 Occurrences starting 06/10/2025 until 06/10/2025 documented as of this encounter Visit Diagnoses Diagnosis Abnormal CT scan, pelvis Elevated PSA Elevated prostate specific antigen (PSA) documented in this encounter Administered Medications Inactive Administered Medications - up to 3 most recent administrations Medication Order MAR Action Action Date Dose Rate Site TC-99M medronate radio-isotope injection 25.2 millicurie 25.2 millicurie, intravenous, Once in imaging, Starting on Kathleen 06/10/25 at 0856, For 1 dose Given 06/10/2025 8:56 AM EDT 25.2 millicuries documented in this encounter Orders Medications Ordered That Elver ht Not Have Been Administered Count Last Ordered Date First Ordered Date TC-99M medronate radio-isoto pe injection 25.2 millicurie 1 06/10/2025 documented in this encounter Care Teams Lockstitch Topstitcher Relationship Specialty Start Date End Date Ronald Desai MD [address] [place] [address] PCP - General Internal Medicine 05/17/25 documented as of this encounter
--- OUTSIDE RECORDS SUMMARY | 2025-06-10 11:30 | XMS_ITS | Encounter Summary ---
Author Organization [facility] Address [address] [place] [address] Care Team Providers Care Office Agent Name Role Phone Ronald Desai MD Primary Care Provider [phone] Reason for Visit * Imaging (Routine) - Authorized Specialty Diagnoses / Procedures Referred By Contac t Referred To Contact Radiology Diagnoses Abnormal CT scan, pelvis Elevated PSA Procedures NM Bone/Joint Scan Whole Body Ronald Desai MD [address] [place] [address] Phone: tel: fax: [address] Phone: tel: Referral ID Status Reason Start Date Expiration Date V isits Requested Visits Authorized [id number] Authorized 06/04/2025 06/04/2026 2 2 Encounter Details Date Type Department Care Team ([facility] Contact Info) Description 06/10/2025 11:30 AM EDT Hospital Encounter [facility] Nuclear Medicine [address] [place] [phone] Arrived Social History Tobacco Use Types Packs/Day Years [...] AM EDT Office Visit Vascular Surgery - [place] [address] [place] [address] Elvira Mart MD [address] [place] [address] 07/19/2025 8:30 AM EDT Office Visit Orthopedic Surgery - [place] [address] [facility] [address] [place] [address] David Beltre, DPM 175 [facility] [address] [place] [address] 07/27/2025 3:15 PM EDT Office Visit Nephrology - [facility] [address] [place] [address] Marcelo Roach MD [address] [facility] 200 [place] [address] 08/11/2025 8:30 AM EDT Office Visit Pulmonolgy - [place] 175 [facility] [address] [place] [phone] Suzie Bates, RAMAN [address] [place] [address] 09/13/2025 3:00 PM EST Office Visit Adult Medicine [address] [phone] Ronald Desai MD [address] [place] [address] 09/22/2025 8:30 AM EST Office Visit Adult [address] [phone] Magui Pang PA [address] [place] [address] Pending Results Name Type Priority Associated Diagnoses Date /Time NM Bone/Joint Scan Whole Body Imaging Routine Abnormal CT scan, pelvis Elevated PSA 06/10/2025 12:22 PM EDT documented as of this encounter Visit Diagnoses Not on filedocumented in this encounter Care Teams Office Agent Relationship Specialty Start Date End Date Ronald Desai MD [address] [place] [address] PCP - General Internal Medicine 05/17/25 documented as of this encounter
--- NOTE | 2025-06-11 12:02 | MHC.OFFVIS ---
Vital Signs 06/11/25 12:04 Height 6 ft Weight 240 lb BMI 32.5 BP 167/79 H Blood Pressure Location Lt brachial Position Sitting Respiration 16 Pulse 72 Pulse Source Pulse Oximeter Pulse Oximetry (%) 97 Oxygen Delivery Method Room Air Intake Visit Reasons: Lumbar pain Lip Of Shank Cutter Required: No Allergies adhesive tape Allergy (Verified 06/11/25 12:05) Itching atorvastatin Allergy (Verified 06/11/25 12:05) Muscle cramps mite-Dermatophagoides farinae, thomas (dust mite - [place]) Allergy (Verified 06/11/25 12:05) Unknown pravastatin Allergy (Verified 06/11/25 12:05) Unknown Medication List - Last Reconciled 06/11/25 by Dorothy Kinsey LPN albuterol sulfate 90 mcg/actuation 2 puffs inhalation Q4-6H PRN aspirin 81 mg PO DAILY Held on 07/30/24. Instructions: Resume on 08/02/24. carboxymethylcellulose sodium 0.5% 1 drp ophthalmic (eye) TID cholecalciferol (vitamin D3) (Vitamin D3) 25 mcg PO DAILY cyanocobalamin (vitamin B-12) 1,000 mcg PO DAILY dicyclomine 10 mg PO DAILY PRN ezetimibe 10 mg PO DAILY fluticasone propion-salmeterol 500-50 mcg/dose (Wixela Inhub) 1 inh inhalation DAILY hydrocortisone 2.5% 1 appl topically 1-2 times ed PRN; Held on 07/30/24. Instructions: Resume on 08/13/24. Do not apply to incision site ketoconazole 2% 1 appl topical 2XW PRN lidocaine 5% 1 patch topical DAILY PRN Held on 07/30/24. Instructions: Resume on 08/13/24. Do not apply to incision site losartan 25 mg PO DAILY magnesium oxide 400 mg PO DAILY multivitamin 1 tab PO DAILY pantoprazole 20 mg PO QD-BID tizanidine 4 mg PO BEDTIME PRN zinc gluconate 25 mg PO DAILY HPI HPI Lumbar pain: Details: History of Present Illness The patient is a 69-year-old male presenting with chronic pain and mobility issues related to lumbar spinal stenosis and cervical spine fusion. He has a history of lumbar surgeries, including a decompression at [facility], which was complicated by a hospital stay for urinary retention and intense muscle spasms. The patient reports moderate to severe residual stenosis at L3-4, contributing to his current symptoms. The patient also has a history of cervical spine fusion, which is reportedly fusing again, contributing to neck pain radiating to his arms. He experiences significant pain in both arms, which he describes as aching and persistent, interfering with sleep and daily activities. Additionally, the patient has a history of arthritis and a previously diagnosed torn rotator cuff, which was not surgically repaired. He reports difficulty walking, requiring concentration to maintain balance, and experiences pain exacerbated by movement. Pain Description - Onset: Chronic pain following lumbar and cervical surgeries - Quality: Aching and persistent pain in arms, radiating from neck - Location: Neck, arms, lower back, and legs - Exacerbating factors: Movement, lying down, and walking - Relieving factors: Walking around intermittently - Interference: Sleep disturbances and difficulty with daily activities Physical Exam - Appears afebrile. - Alert and oriented. - Mood and affect appropriate. - Follows and participates in conversation appropriately. - Respiratory effort is unlabored. - Able to transition from sit to stand unassisted. - Ambulates with bilaterally normal heel strike and toe off. - Able to stand and walk on toes and heels. Results - Imaging: Recent body scan and bone density scan performed, awaiting results Pain Management - Affect: Pain significantly impacts sleep and daily activities - Analgesia: Current pain management includes consideration of a spinal cord stimulator - Activities of Daily Living: Difficulty walking and performing daily tasks due to pain [facility] Medical History (Updated 06/16/25 @ 11:48 by Quan Yanez MD) Fatty liver Thoracic and lumbosacral neuritis Abnormality of gait Dysplastic nevi Tear of supraspinatus tendon Renal cyst Adjustment disorder with mixed anxiety and depressed mood Mixed hyperlipidemia Cognitive impairment Lung nodule Cervical radiculopathy Spinal stenosis of lumbar region Nuclear sclerosis of both eyes Elevated PSA Disorder of both eustachian tubes Bilateral tinnitus Cellulitis of left ear Posterior rhinorrhea Dizziness and giddiness Habitual snoring Obesity (BMI 30-39.9) Methacholine challenge positive Gallbladder polyp Hepatomegaly Dysphagia Otalgia of both ears Cervical spinal stenosis Acute frontal sinusitis Bilateral acute serous otitis media Chronic pharyngitis Muscle cramps Herpes simplex infection Sensorineural hearing loss of both ears Migraine Neck pain Mixed conductive and sensorineural hearing loss of right ear Heart murmur Dyspnea on exertion HTN (hypertension) Arthritis Impingement syndrome of shoulder region Incomplete tear of right rotator cuff Epigastric discomfort Osteoarthritis Peripheral neuropathy Sensation of lump in throat Allergic rhinitis Lumbar radiculopathy Muscle twitch Sleep apnea Asthma COPD (chronic obstructive pulmonary disease) High cholesterol GERD (gastroesophageal reflux disease) Chronic kidney disease, stage 3 History of dementia Surgical History (Updated 06/16/25 @ 11:48 by Quan Yanez MD) Hx of nasal septoplasty Hx of umbilical hernia repair History of esophagogastroduodenoscopy (EGD) Hx of shoulder surgery Hx of neck surgery Hx of hernia repair H/O colonoscopy Status post lumbar spinal fusion Hx of decompressive lumbar laminectomy Family History (Updated 06/03/23 @ 13:16 by YUE Correia) Mother Arthritis Father Arthritis Social History (Updated 06/03/23 @ 13:15 by YUE Correia) Household Members: None Household Members Other:: cousin Housing: House Are you a primary client care representative to a significant other at home: No Do you presently have visiting nurse or other home services: No Alcohol intake: never Patient Tobacco Use Status: Never used Tobacco service: No Current occupational status: unemployed Physical Exam Vital Signs: Last Vital Signs Pulse 72 06/11/25 12:04 Resp 16 06/11/25 12:04 BP 167/79 H 06/11/25 12:04 Pulse Ox 97 06/11/25 12:04 Oxygen Delivery Method Room Air 06/11/25 12:04 BMI result Body Mass Index 32.5 Assessment & Plan Assessment & Plan (1) Lumbar stenosis with neurogenic claudication: Code(s): M48.062 - Spinal stenosis, lumbar region with neurogenic claudication Category: Medical (2) Status post lumbar spinal fusion: Code(s): Z98.1 - Arthrodesis status Category: Medical (3) Lumbar radiculopathy: Code(s): M54.16 - Radiculopathy, lumbar region Category: Medical Plan Plan Patient was informed and verbally consented to the use of an ambient scribe for clinic note documentation during this visit. 1. Postlaminectomy Syndrome - Plan to review recent imaging results to assess current status and guide further management. - Consideration of spinal cord stimulator for pain management. 2. Cervical Spine Fusion - Monitor for progressionof associated symptoms. - Evaluate arm pain in relation to neck issues, possibly related to fusion. 3. Urinary Retention - No specific plan discussed during this visit. 4. Muscle Spasms - No specific plan discussed during this visit. 5. Arthritis - Awaiting imaging results to assess joint status. 6. Torn Rotator Cuff - No surgical intervention planned at this time. Discussion Notes I discussed with the patient the potential use of a spinal cord stimulator for managing his chronic pain, explaining the procedure involves implanting leads in the neck and back to neutralize pain. We also talked about the importance of reviewing the recent imaging results to better understand his current condition and guide further treatment decisions. I advised the patient to obtain a disc of the MRI from [facility] for a comprehensive review. Patient Instructions - Obtain a disc of the MRI from [facility] and bring it to the next appointment. - Consider the option of a spinal cord stimulator for pain management. Coding Level of Care Code New Pt Level 4 (42250) Diagnoses Lumbar stenosis with neurogenic claudication M48.062 Status post lumbar spinal fusion Z98.1 Lumbar radiculopathy M54.16
[2025-06-11 12:04] VITALS: BP 167/79; PULSE 72; RESP 16; O2SAT 97; BMI 32.5
--- OUTSIDE RECORDS SUMMARY | 2025-06-11 12:51 | XMS_ITS | Encounter Summary ---
Author Organization [facility] Address [address] [place] [address] Care Team Providers Care Certified Composites Technician Name Role Phone Ronald eDsai MD Primary Care Provider [phone] Encounter Details Date Type Department Care Team (Late Contact Info) Description 08/21/2024 Lab Requisition [facility] - Main Lab [address] [facility] [place] [phone] Rajeev Diaz MD [address] [place] [address] Dysphagia, unspecified Social History Tobacco Use Types [...] Department Care Team (Late Contact Info) Description 06/17/2025 9:30 AM EDT Office Visit Vascular Surgery [facility] [address] [place] [phone] Elvira Mart MD [address] [place] [address] 07/19/2025 8:30 AM EDT Office Visit Orthopedic Surgery [facility] [address] [facility] [address] [place] [phone] David Beltre, DPM [address] [facility] [address] [place] [address] 07/27/2025 3:15 PM EDT [facility] [address] [place] [address] Marcelo Roach MD [address] [place] [address] 08/11/2025 8:30 AM EDT Office Visit Pulmonolgy - [place] [address] [facility] [address] [place] [phone] Suzie Bates, MODELING TEACHER [address] [place] [address] 09/13/2025 3:00 PM EST Office Visit Adult Medicine [address] [phone] Ronald Desai MD [address] [place] [address] 09/22/2025 8:30 AM EST Office Visit Adult Medicine [address] [phone] Magui Pang PA [address] [place] [address] documented as of this encounter Visit Diagnoses Diagnosis Dysphagia, unspecified documented in this encounter Additional Health Concerns Infection Onset Date Last Indicated Resolved Time Respiratory Rule-Out 11/19/2024 11/19/2024 025 11:34 PM EST COVID-19 Rule-Out 11/19/2024 11/19/2024 11/19/2024 11:34 PM EST documented as of this encounter Care Teams Certified Composites Technician Relationship Specialty Start Date End Date Ronald Desai MD [address] [place] [id number] PCP - General Internal Medicine 05/17/25 documented as of this encounter
--- OUTSIDE RECORDS SUMMARY | 2025-06-11 12:52 | XMS_ITS | Encounter Summary ---
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 He has one on 03/26/23 but he is checking in for a sooner appointment. PT says [place] told him to call our office. documented in this encounter Plan of Treatment Not on file documented as of this encounter Visit Diagnoses Not on filedocumented in this encounter
--- OUTSIDE RECORDS SUMMARY | 2025-06-11 12:52 | XMS_ITS | Clinical Summary ---
Author Organization [facility] Address [address] [address] Care Team Providers Care Chart Calculator Name Role Phone Unavailable Primary Care Provider [...] of 1 - PCV) 2005 Influenza Vaccine (#1) 2025 Hepatitis B Vaccine Aged Out No longe r eligible based on patient's age to complete this topic
--- OUTSIDE RECORDS SUMMARY | 2025-06-11 12:52 | XMS_ITS | Clinical Summary ---
Author Organization [facility] Address [address] [place] [address] Care Team Providers Care Piped Buttonhole Machine Operator Name Role Phone Ronald Desai MD Primary Care Provider [phone] Medications Medication Sig Dispensed Refills Start Date [...] 01/09/2021, Additional history exists Influenza Vaccine (#1) 2025 , 07/07/2021, 07/28/2020, Additional history exists DTap / [...] age to complete this topic Care Teams Piped Buttonhole Machine Operator Relationship Specialty Start Date End Date Ronald Desai MD [address] [place] [id number] PCP - General Hospitalist Medicine 08/27/22
--- OUTSIDE RECORDS SUMMARY | 2025-06-11 12:52 | XMS_ITS | Clinical Summary ---
Author Organization [facility] Address [address] [place] [address] Care Team Providers Care Drafter Patent Name Role Phone Ronald Desai MD Primary [...] Health Maintenance Due Date Last Done Comments Advance Care Planning 1955 Hepatitis C Virus Screening 1955 DTaP/Tdap/Td Vaccines (1 - Tdap) 1974 Colonoscopy 2000 Pneumococcal Vaccines 50+ (1 of 1 - PCV) 2005 Zoster (Shingles) Vaccine (1 of 2) 2005 DXA Bone Density (Females,Ages 65 and older) 2020 COVID-19 Vaccine ( - season) 2024 11/04/2021, 10/03/2021, 01/09/2021, Additional history exists Influenza Vaccine 05/14/2025 07/28/2020, , 07/28/2019, Additional history exists RSV Vaccine 60 years and older and Patients (1 - 1-dose 75+ series) 2030 Hepatitis B Vaccines Aged Out No long er eligible based on patient's age to complete this topic Insurance MEDICARE MEDICARE Care Teams Drafter Patent Relationship Specialty Start Date End Date Ronald Desai MD PCP - General Medicine Hospitalist 07/18/23
--- OUTSIDE RECORDS SUMMARY | 2025-06-11 12:52 | XMS_ITS | Encounter Summary ---
Author Organization [facility] Address [address] [place] [address] Care Team Providers Care Rn International Name Role Phone Ronald Desai MD Primary Care Provider Unav ailable Encounter Details Date Type Department Care Team (Late st Contact Info) Description 07/19/2023 Scanned Document [facility] [address] [place] [address] Babar Cage MD [address] [address] Social History Tobacco Use Types Packs/Day Years [...] on filedocumented in this encounter Care Teams Rn International Relationship Specialty Start Date End Date Ronald Desai MD PCP - General Medicine Hospitalist 07/18/23 documented as of this encounter
--- OUTSIDE RECORDS SUMMARY | 2025-06-11 12:52 | XMS_ITS | Clinical Summary ---
Author Organization [facility] Address [address] [place] [address] Phone Care Team Providers Care Curator Herbarium Name Role Phone Ronald Desai MD Primary [...] needed for dry eyes. 08/15/20 17 Active fluticasone propionate (FLONASE) 50 mcg/actuation nasal spray Administer 2 sprays into each nostril 1 (one) time each day. 02/20/20 23 Active ipratropium-albu teroL (DUONEB) 0.5-2.5 mg/3 mL [...] day (before meals and nightly). 900 mL 08/25/20 24 Active pantoprazole (PROTONIX) 40 mg EC tablet Take 1 tablet (40 mg total) by mouth 2 (two) times a day. Take on empty stomach, wait 30 mins and then eat to activate the medication- before breakfast and supper 60 each 10/27/19 25 Active hydrocortisone 1 % topical cream Apply topically 2 (two) times a day. 56 g 1 12/02/19 25 Active diclofenac (VOLTAREN) 1 % topical gel Apply 2 g topically 2 (two) times a day. 100 g 3 02/11/20 25 Active valACYclovir (VALTREX) 1 gram tablet Take 1 tablet (1,000 mg total) by mouth 3 (three) times a day. 21 tablet 02/13/20 25 Active Vitamin D3 25 mcg (1,000 unit) tablet TAKE 1 TABLET BY MOUTH EVERY DAY 90 tablet 1 03/01/20 25 Active fenofibrate (TRICOR) 145 mg tablet TAKE 1 TABLET BY MOUTH 1 TIME EACH DAY. 90 tablet 1 03/03/20 25 Active albuterol HFA (PROAIR HFA ; PROVENTIL HFA ; VENTOLIN HFA) 90 mcg/actuation inhaler INHALE 2 PUFFS INTO THE LUNGS EVERY 6 HOURS NEEDED FOR WHEEZING OR SHORTNESS OF BREATH. THIS IS A RESCUE MEDICATION NOT EXCEED 12 INHALATIONS/2 4 HRS 18 each 1 03/15/20 25 Active ezetimibe (ZETIA) 10 mg tablet TAKE 1 TABLET BY MOUTH 1 TIME EACH DAY. 90 tablet 1 03/15/20 25 Active clotrimazole (LOTRIMIN) 1 % cream APPLY TOPICALLY 2 (TWO) TIMES A DAY. RASH OVER THE GENITALS 30 g 2 03/15/20 25 Active gabapentin (NEURONTIN) 100 mg capsule Take 1 capsule (100 mg total) by mouth 2 (two) times a day. 60 capsule 3 05/06/20 25 Active losartan (COZAAR) 25 mg tablet Take 1 tablet (25 mg total) by mouth 1 (one) time each day. 90 tablet 1 05/06/20 25 Active tiZANidine (ZANAFLEX) 4 mg tablet Take 1 tablet (4 mg total) by mouth at bedtime as needed for muscle spasms. 30 tablet 2 05/06/20 25 Active fluticasone-umec lidinium-vilante rol (Trelegy Ellipta) 100-62.5-25 mcg inhalerIndicatio ns:Severe persistent asthma without complication (CMS/HCC V28) Inhale 1 puff (100 mcg total) by mouth 1 (one) time each day. Rinse mouth with water after use to reduce aftertaste and incidence of candidiasis. Do not swallow. 1 each 2 05/11/20 25 026 Active Lactobacillus acidophilus capsule Take 1 capsule by mouth 2 (two) times a day. Abdominal bloating 60 capsule 05/17/20 25 025 Active DULoxetine (CYMBALTA) [address] capsule Take 1 capsule (20 mg total) by mouth 1 (one) time each day. Do not crush or chew. 30 each 1 06/03/20 25 Active tamsulosin (FLOMAX) 0.4 mg 24 hr capsule Take 1 capsule (0.4 mg total) by mouth at bedtime. 12/25/19 25 025 Discontinued Active Problems Problem Noted Date Diagnosed Date Severe persistent asthma without complication (C MS/HCC V28) 05/11/2025 BPH with elevated PSA 05/06/2025 S/P cervical spinal fusion 10/26/2024 Cognitive impairment [...] outlined in detailed above. He follows with pediatric nurse and is due to repeat a sleep study as he has known sleep apnea which is untreated. He also has history of COPD and uses inhalers. Patient encouraged to follow-up with his pediatric nurse regularly. Heart murmur 04/19/2022 Overview (12/18/2023): Last [...] 2015 Mild chronic obstructive pul monary disease ([facility] V24, [facility] V28) 03/28/2015 Overview (12/18/2023): Dr Qiu Chronic obstructive pulmonar y disease ([facility] V24, [facility] V28) 03/28/2015 Overview (07/15/2024): Dr Qiu Dysphagia 01/27/2015 Overview (12/18/2023): Seen and evalauted by Dr. Conde Dementia ([facility] V24, [facility] V28) 10/15/2012 Overview (12/18/2023): Seen with Tabitha, now on Aricept Stage 3 chronic kidney disease ([facility] V24, [facility] V28) 01/06/2012 Sleep apnea 06/01/2011 Overview (12/18/2023): [facility] Home Sleep Apnea Test: Date 11/06/2022; BMI 31; AHI 6; average oxygen saturation 94% (lowest 85% without saturations <88% for 5% or more of study) - Obstructive Sleep Apnea - mild; without sleep related hypoventilation by 2022 home sleep apnea test. ENT: Evaluation for Snoring and Sleep Apnea on 06/18/2023 Recommended MAD device NEO (obstructive sleep apnea) 06/01/2011 Overview (07/15/2024): Obstructive sleep apnea (adult) [...] Encounters Date Type Department Care Team Description 06/10/2025 11:30 AM EDT Hospital Encounter [facility] Nuclear Medicine [address] [place] [phone] Arrived 06/10/2025 8:14 AM EDT Hospital Encounter [facility] Nuclear Medicine [address] [place] [phone] Abnormal CT scan, pelvis; Elevated PSA 06/07/2025 Telephone Adult [address] [phone] Ronald Desai MD 06/04/2025 8:15 AM EDT - 06/04/2025 11:59 PM EDT Hospital Encounter CT Scan [address] [phone] Bilateral hip pain; Abnormal x-ray of pelvis Discharge Disposition: Home or Self Care 06/03/2025 9:30 AM EDT Office Visit Adult [address] [phone] Ronald Desai MD Bilateral hip pain (Primary Dx); Abnormal x-ray of pelvis; Fibromyalgia; Abnormal CT scan, pelvis; Elevated PSA 06/02/[address] [phone] Ronald Desai MD 05/17/2025 9:20 AM EDT Office Visit Gastroenterology [facility] 175 [facility] 175 [facility] [address] [place] [phone] Siomara Tucker NP Abdominal bloating (Primary Dx); Gastroesophageal reflux disease without esophagitis 05/17/2025 8:30 AM EDT Office Visit Orthopedic Surgery - [place] [address] [facility] [address] [place] [phone] David Beltre DPM Plantar fascial fibromatosis (Primary Dx); Lumbar pain; Difficulty walking; Pain in toe of left foot; Pain in toe of right foot; Dermatophytosis of nail; Hammer toe of left foot; Ingrowing nail; Acquired hammer toe of right foot 05/11/2025 8:55 AM EDT Office Visit Pulmonolgy - [place] [address] [place] [phone] Suzie Bates NP Severe persistent asthma without complication ([facility] V28) (Primary Dx); Chronic obstructive pulmonary disease, unspecified COPD type ([facility] V24, [facility] V28); Obstructive sleep apnea syndrome; Cognitive impairment; Obesity (BMI 30-39.9) 05/06/2025 11:00 AM EDT Office Visit Adult Medicine [address] [phone] Ronald Desai MD Primary hypertension (Primary Dx); Mixed hyperlipidemia; Chronic obstructive pulmonary disease, unspecified COPD type ([facility] V24, [facility] V28); NEO (obstructive sleep apnea); Gastroesophageal reflux disease without esophagitis; Stage 3a chronic kidney disease ([facility] V24, [facility] V28); BPH with elevated PSA; Lumbar radiculopathy; S/P cervical spinal fusion; Muscle twitching; Cognitive impairment 05/06/2025 9:45 AM EDT Office Visit Orthopedics [address] [phone] Casey Bragg PA Bilateral hip pain (Primary Dx); Neck pain 05/06/2025 Telephone Orthopedics [address] [phone] Casey Bragg PA 04/14/2025 10:00 AM EDT Ancillary Procedure [facility] [address] 300 [facility] [address] [place] [phone] Claudication ([facility] V24) 04/14/2025 Telephone Vascular Surgery - [place] 300 [facility] [address] [place] [phone] Elvira Mart MD 03/23/2025 Telephone Adult Medicine [address] [phone] Ronald Desai MD 03/15/2025 8:30 AM EDT Office Visit Orthopedic Surgery - [place] [address] [place] [address] [address] [place] [address] David Beltre, DPM Plantar fascial fibromatosis (Primary Dx); Difficulty walking; Pain in toe of right foot; Pain in toe of left foot; Ingrowing nail; Acquired hammer toe of right foot; Dermatophytosis of nail; Hammer toe of left foot from Last 3 Months Immunizations Name Administration [...] HISTORICAL SHOULDER SURGERY NASAL SEPTUM SURGERY PROCEDURE: CA SEPTOPLASTY/SUBMUCOUS RESECJ W/WO CARTILAGE GRF UPPER GASTROINTESTINAL ENDOSCOPY 07/28/2009 PROCEDURE: CA UPPER GI ENDOSCOPY PERFORMED; COMMENT: R/o Laurent's esophagus-biopsy:mild chronic inflammation, mild gastritis-biopsy:gastritis (HPylori+), normal duodenum-biopsy:Nl HERNIA REPAIR PROCEDURE: HISTORICAL HERNIA REPAIR/UMB; COMMENT: dr. mcneil HERNIA REPAIR 10/29/2018 PROCEDURE: REPAIR UMBILICAL HERNIA; COMMENT: Dr. Mcneil Medical History Medical History Date Comments Mental disorder DX:Mental disord er GERD (gastroesophageal reflu x disease) DX:GERD (gastroesophageal re flux disease) COPD (chronic obstructive pu lmonary disease) ([facility] V24, [facility] V28) DX:COPD (chronic o bstructive pulmonary disease) ([facility]) Hypertension DX:Hypertension Kidney damage DX:Kidney damage Dementia ([facility] V24, [facility] V28) DX:Dementia ([facility]) Sleep apnea DX:Sleep apnea Esophageal reflux DX:Esophageal reflux Disorder DX:Disorder Cervicalgia DX:Cervicalgia; COMMENT: s/p Dr. Ellis , bone spur Allergic rhinitis, cause unspecified 05/06/2007 DX:Allergic rhinitis, cause unspecified Nevus, non-neoplastic DX:Nevus, non-neoplastic Esophageal reflux DX:Esophageal reflux Mild chronic obstructive pul monary disease ([facility] V24, [facility] V28) 03/28/2015 DX:Mild chronic obs tructive pulmonary disease (HCC) Abnormality of gait 07/04/2007 DX:Abnormali ty of gait Adjustment disorder with mix ed anxiety and depressed mood 03/29/2010 DX:Adjustment disorder with mixed anxiety and depressed mood CKD (chronic kidney disease) stage 3, GFR 30-59 ml/min ([facility] V24, [facility] V28) 01/06/2012 DX:CKD (chronic kidney disea se) stage 3, GFR 30-59 ml/min (HCC) Cognitive [...] Sign Reading Time Taken Comments Blood Pressure 128/74 06/03/2025 9:04 AM EDT Pulse 78 06/03/2025 9:04 AM EDT Temperature 35.8 C (96.5 F) 06/03/2025 9:04 AM EDT Respiratory Rate 18 06/03/2025 9:04 AM EDT Oxygen Saturation 97% 05/17/2025 9:16 AM EDT Inhaled Oxygen Concentration - - Weight 111 kg (245 lb) 06/03/2025 9:04 AM EDT Height 182.9 cm (6') 06/03/2025 9:04 AM EDT Body Mass Index 33.23 06/03/2025 9:04 AM EDT Plan of Treatment Upcoming Encounters Date Type Department Care Team (Late st Contact Info) Description 06/17/2025 9:30 AM EDT Office Visit Vascular Surgery [facility] [address] [place] [address] Elvira Mart MD [address] [place] [phone] 07/19/2025 8:30 AM EDT Office Visit Orthopedic Surgery [facility] 250 175 [facility] [address] [place] [phone] David Beltre DPMel 175 [facility] [address] [place] [address] 07/27/2025 3:15 PM EDT Office Visit [place]rology [place] [address] [place] [address] Marcelo Roach MD [address] [place] [address] 08/11/2025 8:30 AM EDT Office Visit Pulmonolgy - [place] [address] [place] [phone] Suzie Bates, JACQUARD LOOM FIXER [address] [place] [address] 09/13/2025 3:00 PM EST Office Visit Adult Medicine [address] [phone] Ronald Desai MD [address] [place] [address] 09/22/2025 8:30 AM EST Office Visit Adult [address] [phone] Magui Pang PA [address] [place] [address] Health Maintenance Due Date Last Done Comments RSV Immunization Adult Patients (1 - Risk 60-74 years 1-dose series) 2015 Colorectal Cancer Screening: Stool Based Tests (FOBT/FIT) 09/22/2022 Falls Risk Assessment 09/22/2022 Medicare Annual Wellness Visit 09/22/2022 Social Influencers of Health Screening 09/22/2022 COVID-19 Vaccine ( season) 2024 10/28/2023, 08/24/2022, 11/04/2021, Additional history exists Depression Screening 10/14/2024 Influenza Vaccine (#1) 2025 , 07/16/2022, 07/07/2021, Additional history exists Hypertension/CHF/CAD Annual BMP Blood Test 10/27/2025 10/27/2024, 04/30/2024, 04/30/2024 DTaP,Tdap,and Td Vaccines (3 - Td or Tdap) 07/16/2027 07/16/2017, 05/28/2007 Pneumococcal Vaccine: 50+ Years (3 of 3 - PCV20 or PCV21) 08/17/2027 08/17/2022, 07/15/2018 Cholesterol Screening (Lipid Panel) 10/27/2029 10/27/2024, 04/30/2024, 04/30/2024 Hepatitis C Screening Completed 06/09/2007 Zoster Vaccines Completed 05/29/2021, 02/24/2021 Colorectal Cancer Screening: Colonoscopy Discontinued 04/03/2024 Colorectal Cancer Screening: FIT-DNA (Cologuard) Discontinued 04/03/2024, 03/30/2024 HIB Vaccines Aged Out No longer eligi ble based on patient's age to complete this topic HPV Vaccines Aged Out No longer eligi ble based on patient's age to complete this topic Hepatitis A Vaccines Aged Out No long er eligible based on patient's age to complete this topic Hepatitis B Vaccines Aged Out No long [...] Procedure Name Priority Date/Time Associated Diagnosis Comments CT PELVIS WO CONTRAST Routine 06/04/2025 8:31 AM EDT Bilateral hip pain Abnormal x-ray of pelvis VAS US DUPLEX LOWER EXT ARTERIES BILAT WITH GIANNI Routine 04/14/2025 10:58 AM EDT Claudication ([facility] V24) COMPREHENSIVE METABOLIC PANEL Routine 10/27/2024 9:11 AM [...] cervical spinal fusion Cognitive impairment Muscle twitching COLONOSCOPY Routine 04/03/2024 HEPATITIS C SCREENING Routine 06/09/2007 from Last 3 Months or Most Recently Relevant to Health Maintenance Results * CT Pelvis wo Contrast (06/04/2025 8:31 AM EDT) Anatomical Region Laterality Modality Body, Pelvis Computed Tomogra phy 06/04/2025 1:59 PM EDT Impressions 06/04/2025 2:22 PM EDT 1. Multiple sclerotic foci within the pelvis, differential considerations include bone islands versus blastic metastatic disease if patient has history of malignancy. If further evaluation is necessary, consider MRI pelvis with IV contrast or bone scan. -------- FINAL REPORT -------- Dictated By: Megan Fajardo Dictated Date: 06/04/2025 13:59 ET Assigned Physician: Megan Fajardo Reviewed and Electronically Signed By: Megan Fajardo Signed Date: 06/04/2025 14:22 ET Workstation ID: [id number] Transcribed By: Self Edit Transcribed Date: 06/04/2025 13:59 ET Narrative 06/04/2025 2:[address] PELVIS WITHOUT INTRAVENOUS CONTRAST HISTORY: X-ray pelvis-sclerotic focus within the left superior acetabulum/ chronic low backache. TECHNIQUE: Multiple contiguous axial images of the pelvis were obtained without intravenous contrast. Images were reformatted to coronal and sagittal planes. COMPARISON: Lumbar spine radiograph from 02/17/2025 FINDINGS: The bowel is without obstruction or inflammation and there is no free fluid or free air within the peritoneal cavity. The terminal ileum is within normal limits. There are no pathologically enlarged lymph nodes in the abdomen or pelvis. The arteriovascular structures are within normal limits. Left fat-containing pelvic wall lipoma is present measuring 6.2 x 4.2 cm. Bilateral fat-containing inguinal hernias. There are sclerotic foci within the right pelvic wing, left superior acetabulum, right femoral head, and sacrum. Moderate degenerative changes of the lumbar spine. Procedure Note Megan Fajardo MD - 06/04/2025 CT PELVIS WITHOUT INTRAVENOUS CONTRAST HISTORY: X-ray pelvis-sclerotic focus within the left superior acetabulum/chronic low backache. TECHNIQUE: Multiple contiguous axial images of the pelvis were obtainedwithout intravenous contrast. Images were reformatted to coronal andsagittal planes. COMPARISON: Lumbar spine radiograph from 02/17/2025 FINDINGS: The bowel is without obstruction or inflammation and there is no freefluid or free air within the peritoneal cavity. The terminal ileum iswithin normal limits. There are no pathologically enlarged lymph nodes inthe abdomen or pelvis. The arteriovascular structures are within normal limits. Left fat-containing pelvic wall lipoma is present measuring 6.2 x 4.2 cm.Bilateral fat-containing inguinal hernias. There are sclerotic foci withinthe right pelvic wing, left superior acetabulum, right femoral head, andsacrum. Moderate degenerative changes of the lumbar spine. IMPRESSION: 1. Multiple sclerotic foci within the pelvis, differential considerationsinclude bone islands versus blastic metastatic disease if patient hashistory of malignancy. If further evaluation is necessary, consider MRIpelvis with IV contrast or bone scan. -------- FINAL REPORT -------- Dictated By: Megan Fajardo Dictated Date: 06/04/2025 13:59 ET Assigned Physician: Megan Fajardo Reviewed and Electronically Signed By: Megan Fajardo Signed Date: 06/04/2025 14:22 ET Workstation ID: [id number] Transcribed By: Self Edit Transcribed Date: 06/04/2025 13:59 ET us Ronald Desai MD IMG CT PROCEDURES Final Res ult * Vascular US duplex lower extremity arteries bilateral with GIANNI (04/14/2025 10:58 AM EDT) Left Dist External Iliac PSV 91 cm/s CV [facility] LAB Left Prox External Iliac PSV 76 cm/s CV [facility] Left AT dist sys PSV 52 cm/s CV [facility] LAB Left AT mid sys PSV 66 cm/s CV VAS LAB Left AT prox sys PSV 64 cm/s CV VAS LAB Left PLASTERER STUCCO prox sys PSV 70 cm/s CV VAS LAB Left mid peroneal sys PSV 29 cm/s CV VAS LAB Left popliteal dist sys PSV 69 cm/s CV VAS LAB Left popliteal prox sys PSV 67 cm/s CV VAS LAB Left PT dist sys PSV 87 cm/s CV VAS LAB Left PT mid sys PSV 75 cm/s CV VAS LAB Left PT prox sys PSV 59 cm/s CV VAS LAB Left super femoral dist sys PSV 80 cm/s CV VAS LAB Left super femoral mid sys PSV 79 cm/s CV VAS LAB Left super femoral prox sys PSV 85 cm/s CV VAS LAB Right Dist External Iliac PSV 87 cm/s CV VAS LAB Right Prox External Iliac PSV 82 cm/s CV VAS LAB Right AT dist sys PSV 82 cm/s CV VAS LAB Right AT mid sys PSV 67 cm/s CV VAS LAB Right AT prox sys PSV 83 cm/s CV VAS LAB Right PLASTERER STUCCO prox sys PSV 74 cm/s CV VAS LAB Right mid peroneal sys PSV 43 cm/s CV VAS LAB Right popliteal dist sys PSV 74 cm/s CV VAS LAB Right popliteal prox sys PSV 72 cm/s CV VAS LAB Right PT dist sys PSV 77 cm/s CV VAS LAB Right PT mid sys PSV 76 cm/s CV VAS LAB Right PT prox sys PSV 74 cm/s CV VAS LAB Right super femoral dist sys PSV 82 cm/s CV VAS LAB Right super femoral mid sys PSV 81 cm/s CV VAS LAB Right super femoral prox sys PSV 93 cm/s CV VAS LAB Right profunda sys PSV 54 cm/s CV VAS LAB Left profunda sys PSV 64 cm/s CV [facility] Right arm BP 145 mmHg CV [facility] Left arm BP 160 mmHg CV [facility] Right posterior tibial 188 mmHg CV [facility] Right Dorsalis Pedis 180 mmHg CV [facility] LAB Right GIANNI 1.18 CV V[facility] LAB Left posterior tibial 187 mmHg CV [facility] Left Dorsalis Pedis 188 mmHg CV V[facility] LAB Left GIANNI 1.18 CV VAS LAB Anatomical Region Laterality Modality Vascular, Abdomen Ultrasound Narrative 04/24/2025 2:01 PM EDT Right: GIANNI 1.18. Normal amplitude PVR waveform with dicrotic notch at the ankle. Normal amplitude digit PPG waveform. Triphasic waveforms throughout the arterial tree. No significant inflow arterial occlusive disease. No significant femoral-popliteal disease. Three-vessel runoff in the calf. Left: GIANNI 1.18. Normal amplitude PVR waveform with dicrotic notch at the ankle. Normal amplitude digit PPG waveform. Triphasic waveforms throughout the arterial tree. No significant inflow arterial occlusive disease. No significant femoral-popliteal disease. Three-vessel runoff in the calf. Right Lower Arterial Duplex The distal external iliac artery has triphasic flow. The common femoral artery has triphasic flow. The profunda femoris artery has triphasic flow. The superficial femoral artery has triphasic flow. The popliteal artery has triphasic flow. The anterior tibial artery has triphasic flow. The posterior tibial artery has triphasic flow. The mid peroneal artery has triphasic flow. Left Lower Arterial Duplex The distal external iliac artery has triphasic flow. The common femoral artery has triphasic flow. The profunda femoris artery has biphasic flow. The superficial femoral artery has triphasic flow. The popliteal artery has triphasic flow. The anterior tibial artery has triphasic flow. The posterior tibial artery has triphasic flow. The mid peroneal artery has biphasic flow. Certified Coder Details A luciano scale, color and doppler analysis ultrasound was performed. During the study longitudinal views were obtained. Continuous wave doppler, pulsed wave doppler and pulsed volume recording (PVR) was performed. Overall the study quality was good. us Elvira Mart MD CV VASCULAR PROCEDURES Fi nal Result * (ABNORMAL) Lipid panel with reflex to direct LDL (10/27/2024 9:11 AM EST) Cholesterol 254(H) 0 - 200 mg/dL LAB CHEMISTRY METHOD 10/27/2024 3:28 PM [facility] Triglycerides 161(H) 0 - 150 mg/dL LAB CHEMISTRY METHOD 10/27/2024 3:28 PM [facility] HDL 59 >=40 mg/dL LAB CHEMISTRY METHOD 10/27/2024 3:28 PM [facility] LDL Calculated 163(H) 0 - 100 mg/dL LAB CHEMISTRY METHOD 10/27/2024 3:28 PM [facility] VLDL Cholesterol [place] 32.2 mg/dL LAB CHEMISTRY METHOD 10/27/2024 3:28 PM [facility] Non HDL Chol. (LDL+VLDL) 195(H) <145 mg/dL LAB CHEMISTRY METHOD 10/27/2024 3:28 PM [facility] Chol/HDL Ratio 4.3 0.0 - 4.4 LAB CHEMISTRY METHOD 10/27/2024 3:28 PM [facility] Blood Venous blood specimen / Unknown Venipuncture / Unknown 10/27/2024 9:11 AM EST 10/27/2024 9:11 AM EST us Ronald Desai MD LAB BLOOD ORDERABLES Final Result [facility] [address] [place] [address], [place] [phone] * (ABNORMAL) Comprehensive metabolic panel (10/27/2024 9:11 AM EST) Pathologist [facility] Sodium 137 133 - 145 mmol/L LAB CHEMISTRY METHOD 10/27/2024 3:28 PM [facility] Potassium 4.4 3.5 - 5.5 mmol/L LAB CHEMISTRY METHOD 10/27/2024 3:28 PM [facility] Chloride 106 96 - 110 mmol/L LAB CHEMISTRY METHOD 10/27/2024 3:28 PM [facility] CO2 26 21 - 32 mmol/L LAB CHEMISTRY METHOD 10/27/2024 3:28 PM [facility] Anion Gap 5 3 - 11 LAB CHEMISTRY METHOD 10/27/2024 3:28 PM [facility] Glucose 86 70 - 100 mg/dL LAB CHEMISTRY METHOD 10/27/2024 3:28 PM [facility] BUN 24 5 - 25 mg/dL LAB CHEMISTRY METHOD 10/27/2024 3:28 PM [facility] Creatinine 1.63(H) 0.70 - 1.30 mg/dL LAB CHEMISTRY METHOD 10/27/2024 3:28 PM [facility] eGFR 46(L) >=60 mL/min/1. 73m2 LAB CHEMISTRY METHOD 10/27/2024 3:28 PM [facility] Comment:Calculation based on the Chronic Kidney Disease Epidemiology Collaboration (CKD-EPI) equation refit without adjustment for race. BUN/Creatinine Ratio 14.7 LAB CHEMISTRY METHOD 10/27/2024 3:28 PM [facility] Calcium 8.5 8.5 - 10.5 mg/dL LAB CHEMISTRY METHOD 10/27/2024 3:28 PM [facility] AST (SGOT) 15 10 - 42 unit/L LAB CHEMISTRY METHOD 10/27/2024 3:28 PM [facility] ALT (SGPT) 43 10 - 60 unit/L LAB CHEMISTRY METHOD 10/27/2024 3:28 PM [facility] Alkaline Phosphatase 116 42 - 121 unit/L LAB CHEMISTRY METHOD 10/27/2024 3:28 PM [facility] Total Protein 7.4 6.0 - 8.0 g/dL LAB CHEMISTRY METHOD 10/27/2024 3:28 PM [facility] Albumin 3.9 3.2 - 5.0 g/dL LAB CHEMISTRY METHOD 10/27/2024 3:28 PM EST [facility] Total Bilirubin 0.5 0.0 - 1.4 mg/dL LAB CHEMISTRY METHOD 10/27/2024 3:28 PM EST [facility] Blood Venous blood specimen / Unknown Venipuncture / Unknown 10/27/2024 9:11 AM EST 10/27/2024 9:11 AM EST Ronald Desai MD LAB BLOOD ORDERABLES Final Result [facility] [address] [place] [address], * Colonoscopy (04/03/2024) Colonoscopy no interpretation , abstracted Anatomical Region Laterality Modality Other Historical Provider HEALTH MAINTENANCE Final Result * Hepatitis C Screening (06/09/2007) Hepatitis C Screening abstracted Historical Provider HEALTH MAINTENANCE Final Result from Last 3 Months or Most Recently Relevant to Health Maintenance Insurance [facility] MEDICARE ADVANTAGE Advance Directives Documents on File Type Date Recorded Patient Operations Examiner Expl anation Health Care Decision (hx) 09/03/2019 AD SERNA DIRECTIVE Health Care Decision (hx) 09/03/2019 AD SERNA DIRECTIVE Health Care Decision (hx) 09/03/2019 AD SERNA DIRECTIVE Health Care Decision (hx) 09/03/2019 AD SERNA DIRECTIVE Health Care Decision (hx) 09/03/2019 AD SERNA DIRECTIVE Health Care Decision (hx) 09/03/2019 AD SRENA DIRECTIVE Health Care Decision (hx) 09/03/2019 AD [...] (hx) 09/03/2019 AD SERNA DIRECTIVE Care Teams Curator Herbarium Relationship Specialty Start Date End Date Ronald Desai MD [address] [place] [id number] PCP - General Internal Medicine 05/17/25
--- OUTSIDE RECORDS SUMMARY | 2025-06-11 12:52 | XMS_ITS | Encounter Summary ---
Author Organization [facility] Address [address] [place] [address] Care Team Providers Care Check Services Clerk Name Role Phone Ronald Desai MD Primary Care Provider Reason for Visit * Reason Onset Date Comments Results 06/07/2025 Encounter Details Date Type Department Care Team (Late st Contact Info) Description 06/07/2025 Telephone Adult Medicine [address] [phone] Ronald Desai MD [address] [place] [address] Social History Tobacco Use Types Packs/Day Years [...] as of this encounter Progress Notes * Ronald Desai MD - 06/08/2025 12:46 PM EDT FYI, CAT scan results are discussed with the patient over the phone and recommended him to go for bone scan. * Jacob Alexander - 06/07/2025 2:41 PM EDT Patient had a ct pelvis wo contract done for 06/03/25 , would like to speak to nurse or provider about the test results , please advise Was ordered by dr Desai and results written on 06/04/25 documented in this encounter Plan of Treatment Upcoming Encounters Date Type Department Care Team (Late st Contact Info) Description 06/17/2025 9:30 AM EDT Office Visit Vascular Surgery - [place] [address] [facility] [address] [place] [address] Elvira Mart MD [address] [place] [address] 07/19/2025 8:30 AM EDT Office Visit Orthopedic Surgery - [place] [address] [facility] [address] [place] [phone] David Beltre, DPM 175 [facility] [address] [place] [address] 07/27/2025 3:15 PM EDT Office Visit Nephrology - [facility] [address] [place] [address] Marcelo Roach MD [address] [facility] [address] [place] [address] 08/11/2025 8:30 AM EDT Office Visit Pulmonolgy - [place] 175 [facility] [address] [place] [address] Suzie Bates, RAMAN [address] [place] [address] 09/13/2025 3:00 PM EST Office Visit Adult Medicine [address] [phone] Ronald Desai MD [address] [place] [address] 09/22/2025 8:30 AM EST Office Visit Adult Medicine [address] [phone] Magui Pang PA [address] [place], [place] documented as of this encounter Visit Diagnoses Not on filedocumented in this encounter Care Teams Check Services Clerk Relationship Specialty Start Date End Date Ronald Desai MD [address] [place] [id number] PCP - General Internal Medicine 05/17/25 documented as of this encounter
--- OUTSIDE RECORDS SUMMARY | 2025-06-11 12:52 | XMS_ITS | Encounter Summary ---
Author Organization [facility] Address [address] [place] [address] Care Team Providers Care Medical Scientist Name Role Phone Ronald Desai MD Primary Care Provider Unav ailable Encounter Details Date Type Department Care Team (Late st Contact Info) Description 07/19/2023 Scanned Document [facility] [address] [place] [address] Babar Cage MD [address] [address] Social History Tobacco Use Types Packs/Day Years [...] on filedocumented in this encounter Care Teams Medical Scientist Relationship Specialty Start Date End Date Ronald Desai MD PCP - General Medicine Hospitalist 07/18/23 documented as of this encounter
--- OUTSIDE RECORDS SUMMARY | 2025-06-11 12:52 | XMS_ITS | Encounter Summary ---
Author Organization [facility] Address [address] [place] [address] Care Team Providers Care Platen Grinder Name Role Phone Ronald Desai MD Primary Care Provider Encounter Details Date Type Department Care Team (Late Contact Info) Description 08/15/2024 Lab Requisition [facility] - Main Lab [address] [facility] [place] [phone] Rajeev Diaz MD [address] [place] [address] Dysphagia, unspecified Social History Tobacco Use Types [...] 9:30 AM EDT Office Visit Vascular Surgery [facility] [address] [place] [phone] Elvira Mart MD [address] [place] [address] 07/19/2025 8:30 AM EDT Office Visit Orthopedic Surgery [facility] [address] [facility] 250 [place] [phone] David Beltre, DPM 175 [facility] [address] [place] [address] 07/27/2025 3:15 PM EDT [facility] [address] [place] [address] Marcelo Roach MD [address] [place] [address] [place] [address] 08/11/2025 8:30 AM EDT Office Visit Pulmonolgy - [place] 175 [facility] 200 [place] [address] Suzie Bates, JUNIOR ACCOUNTANT [address] [place] [address] 09/13/2025 3:00 PM EST Office Visit Adult Medicine [address] [phone] Ronald Desai MD [address] [place] [address] 09/22/2025 8:30 AM EST Office Visit Adult Medicine [address] [phone] Magui Pang PA [address] [place] [address] documented as of this encounter Visit Diagnoses Diagnosis Dysphagia, unspecified documented in this encounter Additional Health Concerns Infection Onset Date Last Indicated Resolved Time Respiratory Rule-Out 11/19/2024 11/19/2024 025 11:34 PM EST COVID-19 Rule-Out 11/19/2024 11/19/2024 11/19/2024 11:34 PM EST documented as of this encounter Care Teams Platen Grinder Relationship Specialty Start Date End Date Ronald Desai MD [address] [place] [phone] PCP - General Internal Medicine 05/17/25 documented as of this encounter
--- OUTSIDE RECORDS SUMMARY | 2025-06-11 12:52 | XMS_ITS ---
Author Name [facility] Organization Unknown History of Medication Use Medication Directions Dispensed Refills Start Date End Date Stat us methylPREDNISolone (MEDROL DOSEPAK) 4 MG tablet follow package directions 07/18/2023 active Problems Problem Status Onset Date Problem Type Date of Resoluti on Source Bilateral shoulder pain, unspecified chronicity active EncounterDiagnosisAct [facility] Tendinitis of left rotator cuff active EncounterDiagnosisAct [facility] Nontraumatic complete tear of right rotator cuff active EncounterDiagnosisAct [facility] Encounters Encounter Type Encounter Reason Primary Diagnosis Location Date Ambulatory Pain in right shoulder Pain in right shoulder [facility] 08/12/2023 Ambulatory Complete rotator cuff tear or rupture of right shoulder, not specified as traumatic Complete rotator cuff tear or rupture of right shoulder, not specified as traumatic [facility] 08/12/2023 Ambulatory Pain, unspecified Pain, unspecified [facility] 07/18/2023 Ambulatory Radiculopathy, lumbar region Radiculopathy, lumbar region [facility] 07/18/2023 Care Team Organization Name Specialty Phone Email Start Date End Da te [facility] RONALD DESAI [facility] 07/18/20232024 [facility] RONALD [facility] 07/18/20232022 [facility] 06/20/2023 06/20/2023 [facility] Ronald Desai Primary Care 12/19/202205/14 [facility] RONALD DESAI Primary Care 09/13/2022 06/01/2024 [facility] Termed, PROVIDER Primary Care 08/21/202205/14
== END 2025-06-11 12:42 | disposition home or self-care (01) ==
LOC: HO.PMC 12:02
PROVIDERS: PCP Internal Medicine; Visit Provider Internal Medicine
DX: M48.062 Spinal stenosis, lumbar region with neurogenic claudication (principal); Z98.1 Arthrodesis status; M54.16 Radiculopathy, lumbar region
CPT/HCPCS: 99204

== ENCOUNTER → 2025-06-11 12:02 | Outpatient (BNVA) | payer MEDICARE, SELFPAY | PROVIDERS: PCP Internal Medicine; Visit Provider Internal Medicine | DX: M48.062 Spinal stenosis, lumbar region with neurogenic claudication (principal); M54.16 Radiculopathy, lumbar region; Z98.1 Arthrodesis status | CPT/HCPCS: 99202 ==

== ENCOUNTER 2025-07-09 10:44 | Outpatient (AMB) | payer MEDICARE, SELFPAY ==
--- NOTE | 2025-07-09 10:48 | MHC.OFFVIS ---
Vital Signs 07/09/25 10:49 Height 6 ft Weight 241 lb BMI 32.7 BP 124/70 Blood Pressure Location Lt brachial Position Sitting Respiration 16 Pulse 77 Pulse Source Pulse Oximeter Pulse Oximetry (%) 97 Oxygen Delivery Method Room Air Intake Visit Reasons: Follow Up Chiller Operator Required: No Allergies adhesive tape Allergy (Verified 07/09/25 10:50) Itching atorvastatin Allergy (Verified 07/09/25 10:50) Muscle cramps mite-Dermatophagoides farinae, thomas (dust mite - [place]) Allergy (Verified 07/09/25 10:50) Unknown pravastatin Allergy (Verified 07/09/25 10:50) Unknown Medication List - Last Reconciled 07/09/25 by Dorothy Kinsey LPN albuterol sulfate 90 mcg/actuation 2 puffs inhalation Q4-6H PRN aspirin 81 mg PO DAILY Held on 07/30/24. Instructions: Resume on 08/02/24. cetirizine (All Day Allergy (cetirizine)) 10 mg PO DAILY PRN cholecalciferol (vitamin D3) (Vitamin D3) 25 mcg PO DAILY diclofenac sodium 1% 2 grams topical QID dicyclomine 10 mg PO DAILY PRN duloxetine 20 mg PO DAILY ezetimibe 10 mg PO DAILY fenofibrate nanocrystallized 145 mg PO DAILY fluticasone propionate 50 mcg/actuation 1 spray intranasal DAILY vkucyjzugrn-eyqlfrakt-yeybdqwb 100-62.5-25 mcg (Trelegy Ellipta) 1 inh inhalation DAILY gabapentin 200 mg PO BID hydrocortisone 2.5% 1 appl topically 1-2 times de PRN; Held on 07/30/24. Instructions: Resume on 08/13/24. Do not apply to incision site ipratropium-albuterol 0.5 mg-3 mg(2.5 mg base)/3 mL 3 mL inhalation Q6H PRN ketoconazole 2% 1 appl topical 2XW PRN Lactobacillus acidophilus 1,000 mmu cells PO DAILY lidocaine 5% 1 patch topical DAILY PRN Held on 07/30/24. Instructions: Resume on 08/13/24. Do not apply to incision site loratadine (Allergy Relief (loratadine)) 10 mg PO DAILY losartan 25 mg PO DAILY magnesium oxide 400 mg PO DAILY montelukast 10 mg PO BEDTIME multivitamin 1 tab PO DAILY pantoprazole 40 mg PO BID tizanidine 4 mg PO BEDTIME PRN valacyclovir 1,000 mg PO TID zinc gluconate 25 mg PO DAILY HPI HPI Follow Up: Details: History of Present Illness The patient is a 69-year-old male presenting with low back and neck pain. The patient reports that both the back and neck pain are particularly bothersome when lying down, causing tingling sensations similar to hitting a funny bone, and significant discomfort. The patient has previously undergone neck surgery, but symptoms persisted even before the surgery, indicating a chronic issue. The patient also experiences shoulder pain, which has been persistent for quite some time. There is a history of a supraspinatus tendon tear in the shoulder, which was identified in primary care notes. The patient is uncertain if the shoulder pain is related to the neck issues or is a separate problem. Additionally, the patient reports headaches that intensify at night, affecting the side of the head. The headaches are described as severe and debilitating, impacting the patient's quality of life. Pain Description - Pain onset: Chronic, with symptoms persisting before neck surgery - Quality: Tingling sensation, similar to hitting a funny bone, with significant discomfort - Primary location: Low back and neck - Radiation: Pain radiates to the shoulder and causes headaches - Exacerbating factors: Lying down increases pain - Impact: Pain is severe and affects quality of life, causing headaches and tingling in the arms and legs Physical Exam - Appears afebrile. - Alert and oriented. - Mood and affect appropriate. - Follows and participates in conversation appropriately. - Respiratory effort is unlabored. Results Pain Management - Affect: Pain significantly impacts the patient's quality of life, causing severe headaches and discomfort. - Analgesia: Discussion of spinal cord stimulator as a potential treatment option. - Activities of Daily Living: Pain affects daily activities, especially when lying down, causing tingling and discomfort. [facility] Medical History (Updated 07/13/25 @ 17:16 by Quan Yanez MD) Fatty liver Thoracic and lumbosacral neuritis Abnormality of gait Dysplastic nevi Tear of supraspinatus tendon Renal cyst Adjustment disorder with mixed anxiety and depressed mood Mixed hyperlipidemia Cognitive impairment Lung nodule Cervical radiculopathy Spinal stenosis of lumbar region Nuclear sclerosis of both eyes Elevated PSA Disorder of both eustachian tubes Bilateral tinnitus Cellulitis of left ear Posterior rhinorrhea Dizziness and giddiness Habitual snoring Obesity (BMI 30-39.9) Methacholine challenge positive Gallbladder polyp Hepatomegaly Dysphagia Otalgia of both ears Cervical spinal stenosis Acute frontal sinusitis Bilateral acute serous otitis media Chronic pharyngitis Muscle cramps Herpes simplex infection Sensorineural hearing loss of both ears Migraine Neck pain Mixed conductive and sensorineural hearing loss of right ear Heart murmur Dyspnea on exertion HTN (hypertension) Arthritis Impingement syndrome of shoulder region Incomplete tear of right rotator cuff Epigastric discomfort Osteoarthritis Peripheral neuropathy Sensation of lump in throat Allergic rhinitis Lumbar radiculopathy Muscle twitch Sleep apnea Asthma COPD (chronic obstructive pulmonary disease) High cholesterol GERD (gastroesophageal reflux disease) Chronic kidney disease, stage 3 History of dementia Surgical History (Updated 06/16/25 @ 11:48 by Quan Yanez MD) Hx of nasal septoplasty Hx of umbilical hernia repair History of esophagogastroduodenoscopy (EGD) Hx of shoulder surgery Hx of neck surgery Hx of hernia repair H/O colonoscopy Status post lumbar spinal fusion Hx of decompressive lumbar laminectomy Family History (Updated 06/03/23 @ 13:16 by YUE Correia) Mother Arthritis Father Arthritis Social History (Updated 06/03/23 @ 13:15 by YUE Correia) Household Members: None Household Members Other:: cousin Housing: House Are you a primary pulmonary care nurse to a significant other at home: No Do you presently have visiting nurse or other home services: No Alcohol intake: never Patient Tobacco Use Status: Never used Tobacco service: No Current occupational status: unemployed Physical Exam Vital Signs: Last Vital Signs Pulse 77 07/09/25 10:49 Resp 16 07/09/25 10:49 BP 124/70 07/09/25 10:49 Pulse Ox 97 07/09/25 10:49 Oxygen Delivery Method Room Air 07/09/25 10:49 BMI result Body Mass Index 32.7 Assessment & Plan Assessment & Plan (1) Hx of decompressive lumbar laminectomy: Comment: Nov [address] Cody Taipa. Code(s): Z98.890 - Other specified postprocedural states Category: Surgical (2) Lumbar stenosis with neurogenic claudication: Code(s): M48.062 - Spinal stenosis, lumbar region with neurogenic claudication Category: Medical (3) Status post lumbar spinal fusion: Code(s): Z98.1 - Arthrodesis status Category: Surgical (4) Postlaminectomy syndrome: Code(s): M96.1 - Postlaminectomy syndrome, not elsewhere classified Category: Medical Plan Plan Patient was informed and verbally consented to the use of an ambient scribe for clinic note documentation during this visit. 1. Low Back Pain - Consideration of spinal cord stimulator with psychological clearance required prior to trial. - Trial involves temporary placement of leads to assess effectiveness. 2. Neck Pain - Discussion of spinal cord stimulator as a treatment option, with psychological clearance required. - Trial with temporary leads to evaluate pain relief. - Discussed both 2 lead and 4 lead options. Likely consider 1 lead trial for both cervical and lumbar pain and then decide on implant based on the results. 3. Shoulder Pain - Consideration of physical therapy and MRI to evaluate shoulder condition. 4. Headache - No specific treatment plan discussed during the visit. 5. Supraspinatus Tendon Tear - Evaluation of shoulder pain to determine if related to tendon tear or neck issues. Discussion Notes I discussed with the patient the potential use of a spinal cord stimulator for managing low back and neck pain. We reviewed the need for psychological clearance as an insurance requirement before proceeding with a trial. The trial involves temporary placement of leads to assess the effectiveness of the stimulator. We also discussed the possibility of addressing shoulder pain through physical therapy and MRI evaluation. The patient was informed about the potential outcomes and the next steps, including follow-up after the trial period to evaluate the results. Patient Instructions - Proceed with psychological clearance for spinal cord stimulator trial. - Follow up after the trial period to discuss results and next steps. - Consider starting physical therapy for shoulder pain and discuss MRI evaluation with your healthcare provider. Coding Level of Care Code Est Pt Level 4 (56682) Diagnoses Hx of decompressive lumbar laminectomy Z98.890 Lumbar stenosis with neurogenic claudication M48.062 Status post lumbar spinal fusion Z98.1 Postlaminectomy syndrome M96.1
[2025-07-09 10:49] VITALS: BP 124/70; PULSE 77; RESP 16; O2SAT 97; BMI 32.7
--- OUTSIDE RECORDS SUMMARY | 2025-07-09 12:20 | XMS_ITS | Encounter Summary ---
Author Organization [facility] Address [address] [place] [address] Care Team Providers Care Map Plotter Name Role Phone Cheko Hassan MD Unavailable [phone] Mitchell Tapia MD, PHD Unavailable Unava ilRamu Reid MD Unavailable Unavailabl e Sara Rodriguez CANDY SEPARATOR ENROBING Unavailable [phone] Peter Benavides PA-C Unavailable [phone] Ronald Desai Primary Care Provider [phone] Tierra Han NP Unavailable [phone] Reason for Visit * Reason Onset Date Comments LAB WORK 01/31/2023 Encounter Details Date Type Department Care Team Description 01/31/2023 Telephone Nephrology - [place] [address] [place] [address] Marcelo Roach MD [address] [place] [address] LAB WORK Social History Tobacco Use Types Packs/Day Years Used Date Smoking Tobacco: Never Smokeless Tobacco: Never Alcohol Use Standard Drinks/Week Comments No 0 (1 standard drink = 0.6 oz pur e alcohol) Financial Resource Strain Answer Date R ecorded How hard is it for you to pa y for the very basics like food, housing, medical care, and heating? Not very hard 04/20/2020 Food Insecurity Answer Date Recorded Within the past 12 months, y ou worried that your food would run out before you got money to buy more. Never true 04/20/2020 Within the past 12 months, t he food you bought just didn't last and you didn't have money to get more. Never true 04/20/2020 Transportation Needs Answer Date Record ed In the past 12 months, has l ack of transportation kept you from medical appointments or from getting medications? No 05/2020 In the past 12 months, has l ack of transportation kept you from meetings, work, or getting things needed for daily living? No 04/20/2020 Sex Assigned at Date Recorded Not on file Job Start Date Occupation Industry Not on file Not on file Not on file COVID-19 Exposure Response Date Recorded In the last 10 days, have yo u been in contact with someone who was confirmed or suspected to have Coronavirus/COVID-19? No / Unsure 01/25/2023 10:02 AM EDT documented as of this encounter Miscellaneous Notes * Telephone Encounter - Bahman De Anda - 01/31/2023 9:25 AM EDT Patient has an appointment on 02/26/23, no labs ordered documented in this encounter Plan of Treatment Not on file documented as of this encounter Visit Diagnoses Not on filedocumented in this encounter Care Teams Map Plotter Relationship Specialty Start Date End Date Min Desaina TenaBreann [address] [place] [address] PCP - General Internal Medicine 07/16/22 Cheko Hassan MD [address] [place] [address] [place] [address] Rn Hyperbaric Cardiovascular Disease 01/12/21 Mitchell Tapia MD, PHD [address] [place] [address] [place] [address] Specialist Neurosurgery 08/17/21 Ramu Solano MD [address] [place] [address] [place] [address] Specialist Internal Medicine 08/23/21 Sara Rodriguez, RAMAN [address] [place] [address] [place] [address] Nurse Practitioner Cardiology 09/20/21 Peter Benavides PA-C [address] [facility] [address] [place] [address] Specialist Neurosurgery 12/07/21 Tierra Han NP [address] [place] [address] Cardiology 07/14/24 documented as of this encounter
--- OUTSIDE RECORDS SUMMARY | 2025-07-09 12:20 | XMS_ITS | Encounter Summary ---
Author Organization [facility] Address [address] [place] [address] Care Team Providers Care Stripper Color Name Role Phone Cheko Hassan MD Unavailable [phone] Mitchell Tapia MD, PHD Unavailable Unava ilRamu Reid MD Unavailable Unavailabl e Sara Rodriguez NP Unavailable [phone] Peter Benavides PA-C Unavailable [phone] Ronald Desai Primary Care Provider [phone] Tierra Han NP Unavailable [phone] Encounter Details Date Type Department Care Team Description 02/05/2023 Orders Only Nephrology - [place] [address] [place] [address] Marcelo Roach MD [address] [place] [address] Stage 3b chronic kidney disease (HCC) (Primary Dx) Social History Tobacco Use Types Packs/Day Years [...] AM EDT documented as of this encounter Plan of Treatment Not on file documented as of this encounter Results * (ABNORMAL) CHG COMPREHENSIVE METABOLIC PANEL (02/08/2023 10:25 AM EDT) [facility] GLUCOSE 126(H) 70 - 100 mg/dL 02/08/2023 3:47 PM EDT [facility] Comment:Reference range appl icable to fasting specimens only Blood Urea Nitrogen 19 5 - 25 mg/dL 02/08/2023 3:47 PM EDT [facility] CREAT 1.35(H) 0.7 - 1.3 mg/dL 02/08/2023 3:47 PM EDT [facility] GLOMERULAR FILTRATION RATE 58(L) >60 02/08/2023 3:47 PM EDT [facility] Comment: This eGFR result was calculated using the CKD-EPI 2020 Creatinine Equation NA 141 135 - 145 mEq/L 02/08/2023 3:47 PM EDT [facility] K 4.1 3.5 - 5.5 mmol/L 02/08/2023 3:47 PM EDT [facility] CL 107 96 - 110 mmol/L 02/08/2023 3:47 PM EDT [facility] CARBON DIOXIDE (CO2) 27 21 - 32 mmol/L 02/08/2023 3:47 PM EDT [facility] ANION GAP 7 3 - 11 02/08/2023 3:47 PM EDT [facility] CALCIUM 8.8 8.5 - 10.5 mg/dL 02/08/2023 3:47 PM EDT [facility] Albumin 3.9 3.2 - 5.0 G/dL 02/08/2023 3:47 PM EDT [facility] SGPT 48 10 - 60 U/L 02/08/2023 3:47 PM EDT [facility] TOTAL PROTEIN (TP) 7.0 6.0 - 8.0 G/dL 02/08/2023 3:51 PM EDT [facility] BILIRUBIN TOTAL 0.4 0.0 - 1.4 mg/dL 02/08/2023 3:51 PM EDT [facility] SGOT 28 10 - 42 U/L 02/08/2023 3:51 PM EDT [facility] ALK PHOS 114 42 - 121 U/L 02/08/2023 3:51 PM EDT [facility] 02/08/2023 10:2 5 AM EDT 02/08/2023 10:25 AM EDT Narrative [facility] - 02/08/2023 3:51 PM EDT Release to patient->Immediate Marcelo Roach MD LAB [facility] * PTH INTACT (02/08/2023 10:25 AM EDT) INTACT PTH 36 18 - 88 pg/mL 02/08/2023 3:55 PM EDT [facility] 02/08/2023 10:2 5 AM EDT 02/08/2023 10:25 AM EDT Narrative [facility] - 02/08/2023 3:55 PM EDT Release to patient->Immediate Marcelo Roach MD LAB [facility] documented in this encounter Visit Diagnoses Diagnosis Stage 3b chronic kidney disease (HCC)- Primary Stage 3b chronic kidney disease (HCC) documented in this encounter Care Teams Stripper Color Relationship Specialty Start Date End Date Ronald Desai [address] [place] [address] PCP - General Internal Medicine 07/16/22 Cheko Hassan MD [address] [place] [address] [address] [place] [address] Trout Farmer Cardiovascular Disease 01/12/21 Mitchell Tapia MD, PHD [address] [place] [address] [address] [place] [address] Specialist Neurosurgery 08/17/21 Ramu Solano MD [address] [place] [address] [address] [place] [address] Specialist Internal Medicine 08/23/21 Sara Rodriguez NP [address] [place] [address] [place] [address] Nurse Practitioner Cardiology 09/20/21 Peter Benavides PA-C [address] [place] [address] [address] [place] [address] Specialist Neurosurgery 12/07/21 Tierra Han NP [address] [place] [address] [address] [place] [address] Cardiology 07/14/24 documented as of this encounter
--- OUTSIDE RECORDS SUMMARY | 2025-07-09 12:20 | XMS_ITS | Clinical Summary ---
Author Organization [facility] Address [address] [place] [address] Care Team Providers Care X Ray Equipment Mechanic Name Role Phone Ronald Desai MD [...] (Females,Ages 65 and older) 2020 Influenza Vaccine 05/14/2025 07/28/2020, , 07/28/2019, Additional history exists COVID-19 Vaccine ( - 2024- season) 2025 11/04/2021, 10/03/2021, 01/09/2021, Additional history exists RSV Vaccine 60 years and older and Patients (1 - 1-dose 75+ series) 2030 Hepatitis B Vaccines Aged Out No long er eligible based on patient's age to complete this topic Insurance MEDICARE MEDICARE Care Teams X Ray Equipment Mechanic Relationship Specialty Start Date End Date Ronald Desai MD PCP - General Medicine Hospitalist 07/18/23
--- OUTSIDE RECORDS SUMMARY | 2025-07-09 12:20 | XMS_ITS | Encounter Summary ---
Author Organization [facility] Address [address] [place] [address] Care Team Providers Care Clinician Oncology Name Role Phone Geo Avendano MD Primary Care Provider Cheko Jaramillo MD Unavailable [phone] Mitchell Tapia MD, PHD Unavailable Unava Ramu Blackwell MD Unavailable Unavailabl e Sara Rodriguez FIRE PROTECTION FABRICATOR Unavailable [phone] Peter Benavides PA-C Unavailable [phone] Ronald Desai Primary Care Provider [phone] Ronald Desai Primary Care Provider [phone] Tierra Han FIRE PROTECTION FABRICATOR Unavailable [phone] Encounter Details Date Type Department Care Team Description 12/19/2021 [facility] Neurosurgery [place] [address] [place] [address] Mitchell Tapia MD, PHD Social History Tobacco Use Types Packs/Day Years [...] Exposure Response Date Recorded In the last month, have you been in contact with someone who was confirmed or suspected to have Coronavirus / COVID-19? No / Unsure 12/11/2021 10:33 AM EST documented as of this encounter Plan of Treatment Not on file documented as of this encounter Visit Diagnoses Not on filedocumented in this encounter Care Teams Clinician Oncology Relationship Specialty Start Date End Date Geo Avendano MD PCP - General 04/08/07 05/31/22 Ronald Desai [address] [place] [address] PCP - General Internal Medicine 06/01/22 07/15/22 Ronald Desai [address] [place] [address] PCP - General Internal Medicine 07/16/22 Cheko Hassan MD [address] [place] [address] [place] [address] Programming Engineer Cardiovascular Disease 01/12/21 Mitchell Tapia MD, PHD [address] [place] [address] [place] [address] Specialist Neurosurgery 08/17/21 Ramu Solano MD [address] [place] [address] [place] [address] Specialist Internal Medicine 08/23/21 Sara Rodriguez NP [address] [place] [address] [place] [address] Nurse Practitioner Cardiology 09/20/21 Peter Benavides PA-C 175 [facility] [address] [place] [address] Specialist Neurosurgery 12/07/21 Tierra Han NP [address] [place] [address] Cardiology 07/14/24 documented as of this encounter
--- OUTSIDE RECORDS SUMMARY | 2025-07-09 12:20 | XMS_ITS | Encounter Summary ---
Author Organization [facility] Address [address] [place] [address] Care Team Providers Care Field Sales Associate Name Role Phone Geo Avendano MD Primary Care Provider Cheko Jaramillo MD Unavailable [phone] Mitchell Tapia MD, PHD Unavailable Unava Ramu Blackwell MD Unavailable Unavailabl e Sara Rodriguez DAMAGE INSIDE ADJUSTER Unavailable [phone] Peter Benavides PA-C Unavailable [phone] Ronald Desai Primary Care Provider [phone] Ronald Desai Primary Care Provider Tierra Han DAMAGE INSIDE ADJUSTER Unavailable [phone] Reason for Referral * Non CLYDE (Routine) - Authorized/Booked Specialty Diagnoses / Procedures Referred By Roberta elder Referred To Contact Nephrology Procedures REFERRAL TO NEPHROLOGY Geo Avendano MD [address] [place] [address] Marcelo Roach MD [address] [place] [address] Referral ID Status Reason Start Date Expiration Date V isits Requested Visits Authorized [id number] Authorized/B ooked 01/15/2022 01/15/2023 1 1 Encounter Details Date Type Department Care Team Description 01/15/2022 Orders Only Adult Medicine [address] [address] Geo Avendano MD Social History Tobacco Use Types Packs/Day Years [...] suspected to have Coronavirus/COVID-19? No / Unsure 01/12/2022 8:51 AM EDT documented as of this encounter Plan of Treatment Not on file documented as of this encounter Visit Diagnoses Not on filedocumented in this encounter Care Teams Field Sales Associate Relationship Specialty Start Date End Date Geo Avendano MD PCP - General 04/08/07 05/31/22 Ronald Desai [address] [place] [address] PCP - General Internal Medicine 06/01/22 07/15/22 Ronald Desai [address] [place] [address] PCP - General Internal Medicine 07/16/22 Cheko Hassan MD [address] [facility] [address] [place] [address] Admissions Manager Rn Cardiovascular Disease 01/12/21 Mitchell Tapia MD, PHD 2 [facility] [address] [place] [address] Specialist Neurosurgery 08/17/21 Ramu Solano MD [address] [place] [address] [address] [place] [address] Specialist Internal Medicine 08/23/21 Sara Rodriguez NP 2 [facility] [address] [place] [address] Nurse Practitioner Cardiology 09/20/21 Peter Benavides PA-C [address] [place] [address] [address] [place] [address] Specialist Neurosurgery 12/07/21 Tierra Han NP 2 [facility] [address] [place] [address] Cardiology 07/14/24 documented as of this encounter
--- OUTSIDE RECORDS SUMMARY | 2025-07-09 12:20 | XMS_ITS | Encounter Summary ---
Author Organization [facility] Address [address] [place] [address] Care Team Providers Care Non Cdl Driver Name Role Phone Cheko Hassan MD Unavailable [phone] Mitchell Tapia MD, PHD Unavailable Unava ilRamu Reid MD Unavailable Unavailabl e Sara Rodriguez NP Unavailable [phone] Peter Benavides PA-C Unavailable [phone] Ronald Desai Primary Care Provider [phone] Tierra Han NP Unavailable [phone] Encounter Details Date Type Department Care Team Description 01/30/2023 Hospital Medical Records [address] [place] [address] Kellie Ortiz MD [address] [place] [address] Social History Tobacco Use Types Packs/Day Years Used Date Smoking Tobacco: Never Passive Smoke Exposure: Past Smokeless Tobacco: Never Alcohol Use Standard Drinks/Week [...] Recorded In the last 10 days, have jordyn ramirez been in contact with someone who was confirmed or suspected to have Coronavirus/COVID-19? No / Unsure 01/25/2023 10:02 AM EDT documented as of this encounter Plan of Treatment Not on file documented as of this encounter Visit Diagnoses Not on filedocumented in this encounter Care Teams Non Cdl Driver Relationship Specialty Start Date End Date Min Desaimilagros Kuhn [address] [place] [address] PCP - General Internal Medicine 07/16/22 Cheko Hassan MD [address] [place] [address] [place] [address] Golf Club Head Former Cardiovascular Disease 01/12/21 Mitchell Tapia MD, PHD [address] [place] [address] [place] [address] Specialist Neurosurgery 08/17/21 Ramu Solano MD [address] [place] [address] [address] [place] [address] Specialist Internal Medicine 08/23/21 Sara Rodriguez NP [address] [place] [address] [place] [address] Nurse Practitioner Cardiology 09/20/21 Peter Benavides PA-C 175 [facility] [address] [place] [address] Specialist Neurosurgery 12/07/21 Tierra Han NP [address] [place] [address] [address] [place] [address] Cardiology 07/14/24 documented as of this encounter
--- OUTSIDE RECORDS SUMMARY | 2025-07-09 12:20 | XMS_ITS | Encounter Summary ---
Author Organization [facility] Address [address] [place] [address] Care Team Providers Care Thread Clipper Name Role Phone Geo Avendano MD Primary Care Provider Cheko Jaramillo MD Unavailable [phone] Mitchell Tapia MD, PHD Unavailable Unava Ramu Blackwell MD Unavailable Unavailabl e Sara Rodriguez BREAKDOWN WORKER Unavailable [phone] Peter Benavides PA-C Unavailable [phone] Ronald Desai Primary Care Provider [phone] Ronald Desai Primary Care Provider [phone] Tierra Han BREAKDOWN WORKER Unavailable [phone] Reason for Visit * Reason Onset Date Comments Prior Authorization 12/11/2021 MRI CERVICAL SPINE Encounter Details Date Type Department Care Team Description 12/11/2021 Telephone Internal Medicine - [place] [address] [facility], [address] [place] [address] Peter Benavides PA-C [address] [facility] [address] [place] [address] Prior Authorization (MRI CERVICAL SPINE) Social History Tobacco Use Types Packs/Day Years [...] AM EST documented as of this encounter Miscellaneous Notes * Telephone Encounter - Poly [place] - 12/11/2021 1:08 PM EST [facility] Auth# [id number] Valid 12/11/21-06/09/22 Order forwarded to [facility] [place] P [id number]. They will call patient to schedule documented in this encounter Plan of Treatment Not on file documented as of this encounter Visit Diagnoses Not on filedocumented in this encounter Care Teams Thread Clipper Relationship Specialty Start Date End Date Geo Avendano MD PCP - General 04/08/07 05/31/22 Ronald Desai [address] [place] [address] PCP - General Internal Medicine 06/01/22 07/15/22 [place] [address] PCP - General Internal Medicine 07/16/22 Cheko Hassan MD [address] [facility] [address] [place] [address] Pet Supplies Salesperson Cardiovascular Disease 01/12/21 Mitchell Tapia MD, PHD 2 [facility] [address] [place] [address] Specialist Neurosurgery 08/17/21 Ramu Solano MD [address] [facility] [address] [place] [address] Specialist Internal Medicine 08/23/21 Sara Rodriguez NP 2 [facility] [address] [place] [address] Nurse Practitioner Cardiology 09/20/21 Peter Benavides PA-C [address] [place] [address] [address] [place] [address] Specialist Neurosurgery 12/07/21 Tierra Han NP [address] [facility] [address] [place] [address] Cardiology 07/14/24 documented as of this encounter
--- OUTSIDE RECORDS SUMMARY | 2025-07-09 12:20 | XMS_ITS | Encounter Summary ---
Author Organization [facility] Address [address] [place] [address] Care Team Providers Care Extractor Tender Raw Stock Name Role Phone Cheko Hassan MD Unavailable [phone] Mitchell Tapia MD, PHD Unavailable Unava ilRamu Reid MD Unavailable Unavailabl e Sara Rodriguez NP Unavailable [phone] Peter Benavides PA-C Unavailable [phone] Ronald Desai Primary Care Provider [phone] Tierra Han NP Unavailable [phone] Encounter Details Date Type Department Care Team Description 01/17/2023 Telephone Gastroenterology - [place] [address] [facility] [address] [place] [address] Tai Lambert PA-C Social History Tobacco Use Types Packs/Day Years [...] suspected to have Coronavirus/COVID-19? No / Unsure 01/11/2023 12:31 PM EDT documented as of this encounter Miscellaneous Notes * Telephone Encounter - Tia Harley - 01/17/2023 11:45 AM EDT Just an FYI. * Telephone Encounter - Helen Black - 01/17/2023 10:35 AM EDT Reinaldo a case resource manager from [employer] is calling stating no matter how much discomfort the patient is in he only takes dicyclomine (BENTYL) 10 MG capsule 2-3 times daily. states she has coached him on how he should be taking it as prescribed but he still does not. Just a FYI for Tai documented in this encounter Plan of Treatment Not on file documented as of this encounter Visit Diagnoses Not on filedocumented in this encounter Care Teams Extractor Tender Raw Stock Relationship Specialty Start Date End Date Ronald Desai [address] [place] [address] PCP - General Internal Medicine 07/16/22 Cheko Hassan MD [address] [place] [address] [place] [address] Metal Fabricator Helper Cardiovascular Disease 01/12/21 Mitchell Tapia MD, PHD [address] [place] [address] [address] [place] [address] Specialist Neurosurgery 08/17/21 Ramu Solano MD [address] [facility] [address] [place] [address] Specialist Internal Medicine 08/23/21 Sara Rodriguez NP [address] [place] [address] [address] [place] [address] Nurse Practitioner Cardiology 09/20/21 Peter Benavides PA-C [address] [place] [address] [address] [place] [address] Specialist Neurosurgery 12/07/21 Tierra Han NP [address] [facility] [address] [place] [address] Cardiology 07/14/24 documented as of this encounter
--- OUTSIDE RECORDS SUMMARY | 2025-07-09 12:20 | XMS_ITS | Encounter Summary ---
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 He has one on 03/26/23 but he is checking in for a sooner appointment. PT says [facility] told him to call our office. documented in this encounter Plan of Treatment Not on file documented as of this encounter Visit Diagnoses Not on filedocumented in this encounter
--- OUTSIDE RECORDS SUMMARY | 2025-07-09 12:20 | XMS_ITS | Encounter Summary ---
Author Organization [facility] Address [address] [place] [address] Care Team Providers Care Marketing Sales Manager Name Role Phone Cheko Hassan MD Unavailable [phone] Mitchell Tapia MD, PHD Unavailable Unava ilRamu Reid MD Unavailable Unavailabl e Sara Rodriguez REGIONAL OFFICE COORDINATOR Unavailable [phone] Peter Benavides PA-C Unavailable [phone] Ronald Desai Primary Care Provider [phone] Tierra Han NP Unavailable [phone] Reason for Visit * Reason Onset Date Comments Testing 01/29/2023 SONO ABDOMEN COM PLETE Encounter Details Date Type Department Care Team Description 01/29/2023 Telephone Adult Medicine [address] [address] Ronald Desai [address] [place] [address] [phone] Testing (SONO ABDOMEN COMPLETE /) Social History Tobacco Use Types Packs/Day Years [...] encounter Miscellaneous Notes * Telephone Encounter - Jacob Horton MD - 02/15/2023 1:30 PM EDT Please keep order Thank you * Telephone Encounter - Anabel Fleming M.A. - 01/29/2023 2:08 PM EDT SONO ABDOMEN COMPLETE was ordered 11/06/22, do you want to complete or cancel the order? documented in this encounter Plan of Treatment Not on file documented as of this encounter Visit Diagnoses Not on filedocumented in this encounter Care Teams Marketing Sales Manager Relationship Specialty Start Date End Date Ronald Desai [address] [place] [address] PCP - General Internal Medicine 07/16/22 Cheko Hassan MD [address] [place] [address] [address] [place] [address] Staff Developer Cardiovascular Disease 01/12/21 Mitchell Tapia MD, PHD [address] [facility] [address] [place] [address] Specialist Neurosurgery 08/17/21 Ramu Solano MD [address] [place] [address] [address] [place] [address] Specialist Internal Medicine 08/23/21 Sara Rodriguez NP [address] [place] [address] [address] [place] [address] Nurse Practitioner Cardiology 09/20/21 Peter Benavides PA-C [address] [place] [address] [address] [place] [address] Specialist Neurosurgery 12/07/21 Tierra Han, RAMAN [address] [place] [address] [address] [place] [address] Cardiology 07/14/24 documented as of this encounter
--- OUTSIDE RECORDS SUMMARY | 2025-07-09 12:20 | XMS_ITS | Encounter Summary ---
Author Organization [facility] Address [address] [place] [address] Care Team Providers Care Failure Analysis Engineer Name Role Phone Cheko Hassan MD Unavailable [phone] Mitchell Tapia MD, PHD Unavailable Unava ilable Ramu Solano MD Unavailable Unavailabl e Sara Rodriguez NP Unavailable [phone] Peter Benavides PA-C Unavailable [phone] Ronald Desai Primary Care Provider [phone] Tierra Han NP Unavailable [phone] Encounter Details Date Type Department Care Team Description 03/05/2023 Band Splicer Report Medical Records [address] [place] [address] Malcolm Adams Social History Tobacco Use Types Packs/Day Years [...] suspected to have Coronavirus/COVID-19? No / Unsure 02/14/2023 11:02 AM EDT documented as of this encounter Plan of Treatment Not on file documented as of this encounter Visit Diagnoses Not on filedocumented in this encounter Care Teams Failure Analysis Engineer Relationship Specialty Start Date End Date Ronald Desai [address] [place] [address] PCP - General Internal Medicine 07/16/22 Cheko Hassan MD [address] [place] [address] [place] [address] Foaming Machine Operator Cardiovascular Disease 01/12/21 Mitchell Tapia MD, PHD [address] [place] [address] [place] [address] Specialist Neurosurgery 08/17/21 Ramu Solano MD [address] [place] [address] [place] [address] Specialist Internal Medicine 08/23/21 Sara Rodriguez NP [address] [place] [address] [address] [place] [address] Nurse Practitioner Cardiology 09/20/21 Peter Benavides PA-C 175 [facility] [address] [place] [address] Specialist Neurosurgery 12/07/21 Tierra Han NP [address] [place] [address] [address] [place] [address] Cardiology 07/14/24 documented as of this encounter
--- OUTSIDE RECORDS SUMMARY | 2025-07-09 12:20 | XMS_ITS | Encounter Summary ---
Author Organization [facility] Address [address] [place] [address] Care Team Providers Care Visual Education Teacher Name Role Phone Ronald Desai MD Primary Care Provider Unav ailable Encounter Details Date Type Department Care Team (Late st Contact Info) Description 07/19/2023 Scanned Document [facility] [address] [place] [address] Babar Cage MD [address] [address] Social History Tobacco Use Types Packs/Day Years [...] on filedocumented in this encounter Care Teams Visual Education Teacher Relationship Specialty Start Date End Date Ronald Desai MD PCP - General Medicine Hospitalist 07/18/23 documented as of this encounter
--- OUTSIDE RECORDS SUMMARY | 2025-07-09 12:20 | XMS_ITS | Clinical Summary ---
Author Organization [facility] Address [address] [address] Care Team Providers Care Bi Manager Name Role Phone Unavailable Primary Care Provider [...]
--- OUTSIDE RECORDS SUMMARY | 2025-07-09 12:20 | XMS_ITS | Encounter Summary ---
Author Organization [facility] Address [address] [place] [address] Care Team Providers Care Mixed Livestock Farm Worker Name Role Phone Geo Avendano MD Primary Care Provider Cheko Jaramillo MD Unavailable [phone] Mitchell Tapia MD, PHD Unavailable Unava ilRamu Reid MD Unavailable Unavailabl e Sara Rodriguez ENGINEERING OFFICER Unavailable [phone] Peter Benavides PA-C Unavailable [phone] Ronald Desai Primary Care Provider [phone] Ronald Desai Primary Care Provider Tierra Han ENGINEERING OFFICER Unavailable [phone] Encounter Details Date Type Department Care Team Description 12/21/2021 Vice President Payer Report Medical Records [address] [place] [address] Ramu Solano MD Social History Tobacco Use Types Packs/Day [...] on filedocumented in this encounter Care Teams Mixed Livestock Farm Worker Relationship Specialty Start Date End Date Geo Avendano MD PCP - General 04/08/07 05/31/22 Ronald Desai [address] [place] [address] PCP - General Internal Medicine 06/01/22 07/15/22 RenettaRonald singh [address] [place] [address] PCP - General Internal Medicine 07/16/22 Cheko Hassan MD [address] [place] [address] [place] [address] Model And Mold Maker Cardiovascular Disease 01/12/21 Mitchell Tapia MD, PHD [address] [place] [address] [place] [address] Specialist Neurosurgery 08/17/21 Ramu Solano MD [address] [place] [address] [place] [address] Specialist Internal Medicine 08/23/21 Sara Rodriguez, RAMAN [address] [place] [address] [place] [address] Nurse Practitioner Cardiology 09/20/21 Peter Benavides PA-C [address] [facility] [address] [place] [address] Specialist Neurosurgery 12/07/21 Tierra Han, RAMAN [address] [place] [address] Cardiology 07/14/24 documented as of this encounter
--- OUTSIDE RECORDS SUMMARY | 2025-07-09 12:20 | XMS_ITS | Encounter Summary ---
Author Organization [facility] Address [address] [place] [address] Care Team Providers Care Arbitrator Name Role Phone Ronald Desai MD Primary Care Provider Unav ailable Encounter Details Date Type Department Care Team (Late st Contact Info) Description 07/19/2023 Scanned Document [facility] [address] [place] [address] Babar Cage MD [address] [address] Social History Tobacco Use Types Packs/Day Years [...] on filedocumented in this encounter Care Teams Arbitrator Relationship Specialty Start Date End Date Ronald Desai MD PCP - General Medicine Hospitalist 07/18/23 documented as of this encounter
--- OUTSIDE RECORDS SUMMARY | 2025-07-09 12:20 | XMS_ITS | Encounter Summary ---
Author Organization [facility] Address [address] [place] [address] Care Team Providers Care Fur Finisher Tailor Name Role Phone Cheko Hassan MD Unavailable [phone] Mitchell Tapia MD, PHD Unavailable Unava ilRamu Reid MD Unavailable Unavailabl e Sara Rodriguez NP Unavailable [phone] Peter Benavides PA-C Unavailable [phone] Ronald Desai Primary Care Provider [phone] Tierra Han NP Unavailable [phone] Encounter Details Date Type Department Care Team Description 01/02/2023 Telephone Gastroenterology - [address] [place] [address] Tai Lambert PA-C Social History [...] suspected to have Coronavirus/COVID-19? No / Unsure 12/27/2022 8:29 AM EDT documented as of this encounter Miscellaneous Notes * Telephone Encounter - Tai Lambert PA-C - 01/03/2023 2:09 PM EDT So Protonix and Zofran have already been sent to the pharmacy and we will look forward to hearing from them either way in 2 weeks. * Telephone Encounter - nAa Martell M.A. - 01/03/2023 1:58 PM EDT Spoke with the Patient he does agree to have that sent to the pharmacy. He will call us in two weeks to give us a update, thanks Tai * Telephone Encounter - Tai Lambert PA-C - 01/02/2023 4:12 PM EDT We can certainly switch him to Protonix to see if that would work any better for him. Also I can order Zofran to see if that will help with the nausea documented in this encounter Plan of Treatment Not on file documented as of this encounter Visit Diagnoses Not on filedocumented in this encounter Care Teams Fur Finisher Tailor Relationship Specialty Start Date End Date Ronald Desai [address] [place] [address] PCP - General Internal Medicine 07/16/22 Cheko Hassan MD [address] [place] [address] DR[address] [place] [address] Refrigerator Cabinetmaker Cardiovascular Disease 01/12/21 Mitchell Tapia MD, PHD [address] [place] [address] [address] [place] [address] Specialist Neurosurgery 08/17/21 Ramu Solano MD [address] [place] [address] DR[address] [place] [address] Specialist Internal Medicine 08/23/21 Sara Rodriguez NP [address] [place] [address] [address] [place] [address] Nurse Practitioner Cardiology 09/20/21 Peter Benavides PA-C [address] [place] [address] [address] [place] [address] Specialist Neurosurgery 12/07/21 Tierra Han NP [address] [facility] [address] [place] [address] Cardiology 07/14/24 documented as of this encounter
--- OUTSIDE RECORDS SUMMARY | 2025-07-09 12:20 | XMS_ITS | Encounter Summary ---
Author Organization [facility] Address [address] [place] [address] Care Team Providers Care Program Director/Music Director Name Role Phone Geo Avendano MD Primary Care Provider Cheko Jaramillo MD Unavailable [phone] Mitchell Tapia MD, PHD Unavailable Unava Ramu Blackwell MD Unavailable Unavailabl e Sara Rodriguez TRUCK ASSEMBLER Unavailable [phone] Peter Benavides PA-C Unavailable [phone] Ronald Desai Primary Care Provider [phone] Ronald Desai Primary Care Provider [phone] Tierra Han NP Unavailable [phone] Encounter Details Date Type Department Care Team Description 01/12/2022 Orders Only Lab - [facility] [address] [place] [address] Sara Rodriguez, RAMAN [address] [place] [address] Dr Frias [place], [place] [id number] Muscle cramp (Primary Dx) Social History Tobacco Use Types [...] as of this encounter Results * (ABNORMAL) LIPID PROFILE (01/12/2022 11:23 AM EDT) Cholesterol 149 0 - 200 mg/dL 01/12/2022 5:34 PM EDT [facility] TRIGLYCERIDES 196(H) 0 - 150 mg/dL 01/12/2022 5:34 PM EDT [facility] HDL CHOLESTEROL 60 >40 mg/dL 5:34 PM EDT [facility] LDL CALCULATED 50 0 - 100 mg/dL 01/12/2022 5:34 PM EDT [facility] TC-HDLC RATIO 2.5 0 - 4.4 mg/dL 01/12/2022 5:34 PM EDT [facility] 01/12/2022 11:2 3 AM EDT 01/12/2022 11:24 AM EDT Narrative [facility] - 01/12/2022 5:34 PM EDT Release to patient->Immediate Sara Rodriguez TRUCK ASSEMBLER LAB [facility] documented in this encounter Visit Diagnoses Diagnosis Muscle cramp- Primary Cramp of limb documented in this encounter Care Teams Program Director/Music Director Relationship Specialty Start Date End Date Geo Avendano MD PCP - General 04/08/07 05/31/[address] [place] [address] PCP - General Internal Medicine 06/01/22 07/15/22 [facility] [address] [place] [address] PCP - General Internal Medicine 07/16/22 Cheko Hassan MD [address] [place] [address] [place] [address] Capacitor Inspector Cardiovascular Disease 01/12/21 Mitchell Tapia MD, PHD [address] [place] [address] [place] [address] Specialist Neurosurgery 08/17/21 Ramu Solano MD [address] [place] [address] [address] [place] [address] Specialist Internal Medicine 08/23/21 Sara Rodriguez NP [address] [place] [address] [place] [address] Nurse Practitioner Cardiology 09/20/21 Peter Benavides PA-C [address] [facility] [address] [place] [address] Specialist Neurosurgery 12/07/21 Tierra Han, RAMAN [address] [place] [address] [address] [place] [address] Cardiology 07/14/24 documented as of this encounter
--- OUTSIDE RECORDS SUMMARY | 2025-07-09 12:21 | XMS_ITS | Encounter Summary ---
Author Organization [facility] Address [address] [place] [address] Care Team Providers Care Antique Clock Repairer Name Role Phone Geo Avendano MD Primary Care Provider Cheko Jaramillo MD Unavailable [phone] Mitchell Tapia MD, PHD Unavailable Unava Ramu Blackwell MD Unavailable Unavailabl e Sara Rodriguez AUTOMATIC PINSETTER MECHANIC Unavailable [phone] Peter Benavides PA-C Unavailable [phone] Ronald Desai Primary Care Provider [phone] Ronald Desai Primary Care Provider [phone] Tierra Han AUTOMATIC PINSETTER MECHANIC Unavailable [phone] Reason for Visit * Reason Onset Date Comments Abdominal Pain 03/05/2018 Encounter Details Date Type Department Care Team Description 03/05/2018 Telephone Adult Medicine [address] [address] Geo Avendano MD Abdominal Pain Social History Tobacco Use Types Packs/Day [...] file Not on file Not on file documented as of this encounter Miscellaneous Notes * Telephone Encounter - Gretchen Sandhu R.N. - 03/05/2018 8:57 AM EDT Pt states he has intermittent abd. Pain and cramping that began yesterday afternoon;pt c/o nausea; denies vomiting; pt denies fever; denies constipation or diarrhea; notes umbilicus is distended; reports urinating yellow urine hourly over last night; denies urinary discomfort; no change in diet or medication; denies chest pain; denies shoulder pain; denies shortness of breath; denies injury; denies heavy lifting. Given appt at 10 am today with MATTHEW Miles * Telephone Encounter - Ella Wing - 03/05/2018 8:42 AM EDT Symptoms patient is presenting: pt has abdominal pain, abdomin bloated and belly button stuck out about 2 inches, this morning having discomfort If pain or injury related was it due to an accident at work or from a motor vehicle accident? NO If yes, gather 3rd green party insurance information Date of accident/Injury: How long has patient had these symptoms?: 03/04/18 PCP: Geo Avendano Payor: [employer] / Plan: [employer] MEDICARE PREMIUM $15 [place] / Product Type: MEDICARE [id number] documented in this encounter Plan of Treatment Not on file documented as of this encounter Visit Diagnoses Not on filedocumented in this encounter Care Teams Antique Clock Repairer Relationship Specialty Start Date End Date Geo Avendano MD PCP - General 04/08/07 05/31/[address] [place] [address] PCP - General Internal Medicine 06/01/22 07/15/22 EstebanfranciscoRonald [address] [place] [address] PCP - General Internal Medicine 07/16/22 Cheko Hassan MD [address] [place] [address] [address] [place] [address] Pinion Sorter Cardiovascular Disease 01/12/21 Mitchell Tapia MD, PHD [address] [place] [address] [address] [place] [address] Specialist Neurosurgery 08/17/21 Ramu Solano MD [address] [place] [address] [address] [place] [address] Specialist Internal Medicine 08/23/21 Sara Rodriguez NP [address] [place] [address] [address] [place] [address] Nurse Practitioner Cardiology 09/20/21 Peter Benavides PA-C [address] [place] [address] [address] [place] [address] Specialist Neurosurgery 12/07/21 Tierra Han NP [address] [place] [address] [address] [place] [address] Cardiology 07/14/24 documented as of this encounter
--- OUTSIDE RECORDS SUMMARY | 2025-07-09 12:21 | XMS_ITS | Encounter Summary ---
Author Organization [facility] Address [address] [place] [address] Care Team Providers Care Molecular Biology Director Name Role Phone Geo Avendano MD Primary Care Provider Cheko Jaramillo MD Unavailable [phone] Mitchell Tapia MD, PHD Unavailable Unava Ramu Blackwell MD Unavailable Unavailabl e Sara Rodriguez ENDOSCOPE TECHNICIAN Unavailable [phone] Peter Benavides PA-C Unavailable [phone] Ronald Desai Primary Care Provider [phone] Ronald Desai Primary Care Provider [phone] Tierra Han ENDOSCOPE TECHNICIAN Unavailable [phone] Reason for Visit * Reason Comments E-prescribe Rx Request Encounter Details Date Type Department Care Team Description 02/13/2017 Refill Adult Medicine [address] [address] Geo Avendano MD E-prescribe Rx Request Social History Tobacco Use Types Packs/Day Years [...] encounter Miscellaneous Notes * Telephone Encounter - Dionne Jimenez - 02/13/2017 8:39 AM EDT Patient would like script to be: E-PRESCRIBED/FAXED TO PHARMACY WHEN WAS THE PATIENT'S LAST APPOINTMENT IN ADULT MEDICINE? 02/12/17 WHEN WAS THE LAST TIME THE PATIENT SAW THEIR PCP? 08/06/16 Does patient have an upcoming appointment? No-[facility]able [facility] due to refill request. Appt due (THE MEDICATION REQUESTED IS ON THE MED LIST ABOVE) All of the medications requested were on the CURRENT MEDS list Did you check the Pharmacy information above?: YES Patient wants: 90 -day supply Is this a mail order prescription request ? NO Patients current insurance carrier is: Payor: [facility] FFS / Plan: [facility] MEDICARE PREMIUM $15 [place] / Product Type: MEDICARE [id number] documented in this encounter Plan of Treatment Not on file documented as of this encounter Visit Diagnoses Not on filedocumented in this encounter Care Teams Molecular Biology Director Relationship Specialty Start Date End Date Geo Avendano MD PCP - General 04/08/07 05/31/22 [facility] [address] [place] [address] PCP - General Internal Medicine 06/01/22 07/15/22 [address] [place] [address] PCP - General Internal Medicine 07/16/22 Cheko Hassan MD [address] [place] [address] [place] [address] Middle School Science Teacher Cardiovascular Disease 01/12/21 Mitchell Tapia MD, PHD [address] [place] [address] [place] [address] Specialist Neurosurgery 08/17/21 Ramu Solano MD [address] [place] [address] [address] [place] [address] Specialist Internal Medicine 08/23/21 Sara Rodriguez NP [address] [place] [address] [place] [address] Nurse Practitioner Cardiology 09/20/21 Peter Benavides PA-C [address] [place] [address] [address] [place] [address] Specialist Neurosurgery 12/07/21 Tierra Han NP [address] [place] [address] [address] [place] [address] Cardiology 07/14/24 documented as of this encounter
--- OUTSIDE RECORDS SUMMARY | 2025-07-09 12:21 | XMS_ITS | Encounter Summary ---
Author Organization [facility] Address [address] [place] [address] Care Team Providers Care Kiln Worker Name Role Phone Geo Avendano MD Primary Care Provider Cheko Jaramillo MD Unavailable [phone] Mitchell Tapia MD, PHD Unavailable Unava Ramu Blackwell MD Unavailable Unavailabl e Sara Rodriguez BROADCAST OPERATIONS TECHNICIAN Unavailable [phone] Peter Benavides PA-C Unavailable [phone] Ronald Desai Primary Care Provider [phone] Ronald Desai Primary Care Provider [phone] Tierra Han BROADCAST OPERATIONS TECHNICIAN Unavailable [phone] Encounter Details Date Type Department Care Team Description 06/13/2021 Contracting Analyst Report Medical Records [address] [place] [address] Mitchell Tapia MD, PHD Social History Tobacco [...] on filedocumented in this encounter Care Teams Kiln Worker Relationship Specialty Start Date End Date Geo Avendano MD PCP - General 04/08/07 05/31/22 Ronald Desai [address] [place] [address] PCP - General Internal Medicine 06/01/22 07/15/22 Ronald Desai [address] [place] [address] PCP - General Internal Medicine 07/16/22 Cheko Hassan MD [address] [place] [address] [place] [address] Brine Room Laborer Cardiovascular Disease 01/12/21 Mitchell Tapia MD, PHD [address] [place] [address] [place] [address] Specialist Neurosurgery 08/17/21 Ramu Solano MD [address] [place] [address] [place] [address] Specialist Internal Medicine 08/23/21 Sara Rodriguez NP [address] [place] [address] [place] [address] Nurse Practitioner Cardiology 09/20/21 Peter Benavides PA-C [address] [facility] [address] [place] [address] Specialist Neurosurgery 12/07/21 Tierra Han RAMAN [address] [place] [address] Cardiology 07/14/24 documented as of this encounter
--- OUTSIDE RECORDS SUMMARY | 2025-07-09 12:21 | XMS_ITS | Encounter Summary ---
Author Organization [facility] Address [address] [place] [address] Care Team Providers Care Territory Account Executive Name Role Phone Geo Avendano MD Primary Care Provider Cheko Jaramillo MD Unavailable [phone] Mitchell Tapia MD, PHD Unavailable Unava Ramu Blackwell MD Unavailable Unavailabl e Sara Rodriguez MANAGER DEVELOPMENTAL Unavailable [phone] Peter Benavides PA-C Unavailable [phone] Ronald Desai Primary Care Provider [phone] Ronald Desai Primary Care Provider [phone] Tierra Han MANAGER DEVELOPMENTAL Unavailable [phone] Encounter Details Date Type Department Care Team Description 10/17/2020 Refrigerator Repairman Report Medical Records [address] [place] [address] Ha Delgado Social History Tobacco Use Types Packs/Day Years [...] have Coronavirus / COVID-19? No / Unsure 10/05/2020 8:32 AM EST documented as of this encounter Plan of Treatment Not on file documented as of this encounter Visit Diagnoses Not on filedocumented in this encounter Care Teams Territory Account Executive Relationship Specialty Start Date End Date Geo Avendano MD PCP - General 04/08/07 05/31/22 Ronald Desai [address] [place] [address] PCP - General Internal Medicine 06/01/22 07/15/22 Ronald Desai [address] [place] [address] PCP - General Internal Medicine 07/16/22 Cheko Hassan MD [address] [place] [address] [place] [address] Brim Pouncer Machine Operator Cardiovascular Disease 01/12/21 Mitchell Tapia MD, PHD [address] [place] [address] [place] [address] Specialist Neurosurgery 08/17/21 Ramu Solano MD [address] [place] [address] [place] [address] Specialist Internal Medicine 08/23/21 Sara Rodriguez NP [address] [place] [address] [place] [address] Nurse Practitioner Cardiology 09/20/21 Peter Benavides PA-C [address] [place] [address] [address] [place] [address] Specialist Neurosurgery 12/07/21 Tierra Han NP [address] [place] [address] Cardiology 07/14/24 documented as of this encounter
--- OUTSIDE RECORDS SUMMARY | 2025-07-09 12:21 | XMS_ITS | Encounter Summary ---
Author Organization [facility] Address [address] [place] [address] Care Team Providers Care Education Administrative Assistant Name Role Phone Geo Avendano MD Primary Care Provider Cheko Jaramillo MD Unavailable [phone] Mitchell Tapia MD, PHD Unavailable Unava ilRamu Reid MD Unavailable Unavailabl e Sara Rodriguez LOW EMISSION AUTOMOBILE DESIGNER Unavailable [phone] Peter Benavides PA-C Unavailable [phone] Ronald Desai Primary Care Provider [phone] Ronald Desai Primary Care Provider [phone] Tierra Han LOW EMISSION AUTOMOBILE DESIGNER Unavailable [phone] Encounter Details Date Type Department Care Team Description 06/01/2021 Shotblast Operator Report Medical Records [address] [place] [address] Ramu Solano MD Social History Tobacco Use [...] have Coronavirus / COVID-19? No / Unsure 05/11/2021 9:05 AM EDT documented as of this encounter Plan of Treatment Not on file documented as of this encounter Visit Diagnoses Not on filedocumented in this encounter Care Teams Education Administrative Assistant Relationship Specialty Start Date End Date Geo Avendano MD PCP - General 04/08/07 05/31/22 Ronald Desai [address] [place] [address] PCP - General Internal Medicine 06/01/22 07/15/22 Ronald Desai [address] [place] [address] PCP - General Internal Medicine 07/16/22 Cheko Hassan MD [address] [place] [address] [place] [address] Metal Rolling Mill Operator Cardiovascular Disease 01/12/21 Mitchell Tapia MD, PHD [address] [place] [address] [place] [address] Specialist Neurosurgery 08/17/21 Ramu Solano MD [address] [place] [address] [place] [address] Specialist Internal Medicine 08/23/21 Sara Rodriguez, RAMAN [address] [place] [address] [place] [address] Nurse Practitioner Cardiology 09/20/21 Peter Benavides PA-C [address] [facility] [address] [place] [address] Specialist Neurosurgery 12/07/21 Tierra Han, RAMAN [address] [place] [address] Cardiology 07/14/24 documented as of this encounter
--- OUTSIDE RECORDS SUMMARY | 2025-07-09 12:21 | XMS_ITS | Encounter Summary ---
Author Organization [facility] Address [address] [place] [address] Care Team Providers Care Garage Construction Equipment Mechanic Name Role Phone Geo Avendano MD Primary Care Provider Cheko Jaramillo MD Unavailable [phone] Mitchell Tapia MD, PHD Unavailable Unava Ramu Blackwell MD Unavailable Unavailabl e Sara Rodriguez LIVERY CAR DRIVER Unavailable [phone] Peter Benavides PA-C Unavailable Ronald Desai Primary Care Provider [phone] Ronald Desai Primary Care Provider Tierra Han LIVERY CAR DRIVER Unavailable [phone] Encounter Details Date Type Department Care Team Description 11/02/2020 Publications Designer Report Medical Records [address] [place] [address] Rajeev Vee MD Social History Tobacco Use Types Packs/Day [...] have Coronavirus / COVID-19? No / Unsure 11/01/2020 8:46 AM EST documented as of this encounter Plan of Treatment Not on file documented as of this encounter Visit Diagnoses Not on filedocumented in this encounter Care Teams Garage Construction Equipment Mechanic Relationship Specialty Start Date End Date Geo Avendano MD PCP - General 04/08/07 05/31/22 Ronald Desai [address] [place] [address] PCP - General Internal Medicine 06/01/22 07/15/22 Ronald Desai [address] [place] [address] PCP - General Internal Medicine 07/16/22 Cheko Hassan MD [address] [place] [address] [place] [address] Patcher Wood Welder Cardiovascular Disease 01/12/21 Mitchell Tapia MD, PHD [address] [place] [address] [place] [address] Specialist Neurosurgery 08/17/21 Ramu Solano MD [address] [place] [address] [place] [address] Specialist Internal Medicine 08/23/21 Sara Rodriguez NP [address] [place] [address] [place] [address] Nurse Practitioner Cardiology 09/20/21 Peter Benavides PA-C [address] [facility] [address] [place] [address] Specialist Neurosurgery 12/07/21 Tierra Han NP [address] [place] [address] Cardiology 07/14/24 documented as of this encounter
--- OUTSIDE RECORDS SUMMARY | 2025-07-09 12:21 | XMS_ITS | Encounter Summary ---
Author Organization [facility] Address [address] [place] [address] Care Team Providers Care Lumber Checker Name Role Phone Cheko Hassan MD Unavailable [phone] Mitchell Tapia MD, PHD Unavailable Unava ilRamu Reid MD Unavailable Unavailabl Sara Gonzales OUTSIDE SALES ACCOUNT REPRESENTATIVE Unavailable [phone] Peter Benavides PA-C Unavailable [phone] Ronald Desai Primary Care Provider [phone] Ronald Desai Primary Care Provider [phone] Tierra Han NP Unavailable [phone] Reason for Visit * Reason Comments E-prescribe Rx Request Encounter Details Date Type Department Care Team Description 06/01/2022 Refill Adult Medicine [address] [address] Geo Avendano MD E-prescribe Rx Request Social [...] suspected to have Coronavirus/COVID-19? No / Unsure 05/24/2022 6:52 AM EDT documented as of this encounter Miscellaneous Notes * Telephone Encounter - Dorothy Canchola M.A. - 06/04/2022 3:44 PM EDT Lab Results Component Value Date 25OHD 29 01/12/2022 25HYDROXYVIT 27 08/24/2016 AMANDA 03/26/22 - Jenifer Alford NOV 07/16/22 - Dr. Desai - will you refill? *Patient is NEW to you. * Telephone Encounter - Marielena Escaleragonsalo - 06/01/2022 3:32 PM EDT Patient would like script to be: E-PRESCRIBED/FAXED TO PHARMACY ?? WHEN WAS THE PATIENT'S LAST APPOINTMENT IN ADULT MEDICINE? 03/26/22 ?? WHEN WAS THE LAST TIME THE PATIENT SAW THEIR PCP? 01/12/[address] Avendano ?? Does patient have an upcoming appointment? Yes 07/16/22 ?? (THE MEDICATION REQUESTED IS ON THE MED LIST ABOVE) All of the medications requested were on the CURRENT MEDS list ?? Did you check the Pharmacy information above?: YES ?? Patient wants: 30 -day supply ?? Is this a mail order prescription request ? NO ?? If the refill is from a FAXED refill request what is the RX # listed on the fax? N/A ?? Patients current insurance carrier is: Payor: [facility] FFS / Plan: [facility] MEDICARE ADVANTAGE $10/$20/ Product Type: MEDICARE [id number] ?? documented in this encounter Plan of Treatment Not on file documented as of this encounter Visit Diagnoses Not on filedocumented in this encounter Care Teams Lumber Checker Relationship Specialty Start Date End Date Ronald Desai [address] [place] [address] PCP - General Internal Medicine 06/01/22 07/15/22 Ronald Desai [address] [place] [address] PCP - General Internal Medicine 07/16/22 Cheko Hassan MD [address] [place] [address] [place] [address] Hospice Community Liaison Cardiovascular Disease 01/12/21 Mitchell Tapia MD, PHD [address] [place] [address] [place] [address] Specialist Neurosurgery 08/17/21 Ramu Solano MD [address] [place] [address] [place] [address] Specialist Internal Medicine 08/23/21 Sara Rodriguez NP [address] [place] [address] [place] [address] Nurse Practitioner Cardiology 09/20/21 Peter Benavides PA-C 175 [facility] [address] [place] [address] [place] [address] Specialist Neurosurgery 12/07/21 Tierra Han NP [address] [place] [address] Cardiology 07/14/24 documented as of this encounter
--- OUTSIDE RECORDS SUMMARY | 2025-07-09 12:21 | XMS_ITS | Encounter Summary ---
Author Organization [facility] Address [address] [place] [address] Care Team Providers Care Garage Door Technician Name Role Phone Geo Avendano MD Primary Care Provider Cheko Jaramillo MD Unavailable [phone] Mitchell Tapia MD, PHD Unavailable Unava ilRamu Reid MD Unavailable Unavailabl e Sara Rodriguez WEAVE ROOM SUPERVISOR Unavailable [phone] Peter Benavides PA-C Unavailable [phone] Ronald Desai Primary Care Provider [phone] Ronald Desai Primary Care Provider [phone] Tierra Han WEAVE ROOM SUPERVISOR Unavailable [phone] Encounter Details Date Type Department Care Team Description 11/30/2020 C D Still Operator Report Medical Records [address] [place] [address] Ramu Solano MD Social History Tobacco Use [...] filedocumented in this encounter Care Teams Garage Door Technician Relationship Specialty Start Date End Date Geo Avendano MD PCP - General 04/08/07 05/31/22 Ronald Desai [address] [place] [address] PCP - General Internal Medicine 06/01/22 07/15/22 RenettaRonald singh [address] [place] [address] PCP - General Internal Medicine 07/16/22 Cheko Hassan MD [address] [place] [address] [place] [address] Industrial Analyst Cardiovascular Disease 01/12/21 Mitchell Tapia MD, PHD [address] [place] [address] [place] [address] Specialist Neurosurgery 08/17/21 Ramu Solano MD [address] [place] [address] [place] [address] Specialist Internal Medicine 08/23/21 Sara Rodriguez, RAMAN [address] [place] [address] [place] [address] Nurse Practitioner Cardiology 09/20/21 Peter Benavides PA-C 175 [facility] [address] [place] [address] Specialist Neurosurgery 12/07/21 Tierra Han, RAMAN [address] [place] [address] Cardiology 07/14/24 documented as of this encounter
--- OUTSIDE RECORDS SUMMARY | 2025-07-09 12:21 | XMS_ITS | Encounter Summary ---
Author Organization [facility] Address [address] [place] [address] Care Team Providers Care Shoe Ironer Name Role Phone Geo Avendano MD Primary Care Provider Cheko Jaramillo MD Unavailable [phone] Mitchell Tapia MD, PHD Unavailable Unava Ramu Blackwell MD Unavailable Unavailabl e Sara Rodriguez MOTORCYCLE POLICE Unavailable [phone] Peter Benavides PA-C Unavailable [phone] Ronald Desai Primary Care Provider [phone] Ronald Desai Primary Care Provider [phone] Tierra Han MOTORCYCLE POLICE Unavailable [phone] Encounter Details Date Type Department Care Team Description 08/19/2013 Release of Information Medical Records [address] [place] [address] Abstract, Provider Social History Tobacco Use Types Packs/Day Years [...] on filedocumented in this encounter Care Teams Shoe Ironer Relationship Specialty Start Date End Date Geo Avendano MD PCP - General 04/08/07 [facility] [address] [place] [address] PCP - General Internal Medicine 06/01/22 07/15/22 [facility] [address] [place] [address] PCP - General Internal Medicine 07/16/22 Cheko Hassan MD [address] [place] [address] [place] [address] Cigarette Filter Inspector Cardiovascular Disease 01/12/21 Mitchell Tapia MD, PHD [address] [place] [address] [address] [place] [address] Specialist Neurosurgery 08/17/21 Ramu Solano MD [address] [place] [address] [place] [address] Specialist Internal Medicine 08/23/21 Sara Rodriguez NP [address] [place] [address] [address] [place] [address] Nurse Practitioner Cardiology 09/20/21 Peter Benavides PA-C 175 [facility] [address] [place] [address] Specialist Neurosurgery 12/07/21 Tierra Han NP [address] [place] [address] Cardiology 07/14/24 documented as of this encounter
--- OUTSIDE RECORDS SUMMARY | 2025-07-09 12:21 | XMS_ITS | Encounter Summary ---
Author Organization [facility] Address [address] [place] [address] Care Team Providers Care Black Oxide Coating Equipment Tender Name Role Phone Cheko Hassan MD Unavailable [phone] Mitchell Tapia MD, PHD Unavailable Unava ilRamu Reid MD Unavailable Unavailabl e Sara Rodriguez TILE EDGER Unavailable [phone] Peter Benavides PA-C Unavailable [phone] Ronald Desai Primary Care Provider [phone] Tierra Han NP Unavailable [phone] Encounter Details Date Type Department Care Team Description 06/12/2023 Immersion Metalcleaner Report Medical Records [address] [place] [address] Peter Salazar MD Social History Tobacco Use Types Packs/Day [...] suspected to have Coronavirus/COVID-19? No / Unsure 06/12/2023 10:49 AM EDT documented as of this encounter Plan of Treatment Not on file documented as of this encounter Visit Diagnoses Not on filedocumented in this encounter Care Teams Black Oxide Coating Equipment Tender Relationship Specialty Start Date End Date Ronald Desai [address] [place] [address] PCP - General Internal Medicine 07/16/22 Cheko Hassan MD [address] [place] [address] [address] [place] [address] Health Sciences Program Coordinator Cardiovascular Disease 01/12/21 Mitchell Tapia MD, PHD [address] [place] [address] [address] [place] [address] Specialist Neurosurgery 08/17/21 Ramu Solano MD [address] [place] [address] [address] [place] [address] Specialist Internal Medicine 08/23/21 Sara Rodriguez NP [address] [place] [address] [address] [place] [address] Nurse Practitioner Cardiology 09/20/21 Peter Benavides PA-C 175 [facility] [address] [place] [address] Specialist Neurosurgery 12/07/21 Tierra Han NP [address] [place] [address] [address] [place] [address] Cardiology 07/14/24 documented as of this encounter
--- OUTSIDE RECORDS SUMMARY | 2025-07-09 12:21 | XMS_ITS | Encounter Summary ---
Author Organization [facility] Address [address] [place] [address] Care Team Providers Care Creative Art Director Name Role Phone Geo Avendano MD Primary Care Provider Cheko Jaramillo MD Unavailable [phone] Mitchell Tapia MD, PHD Unavailable Unava Ramu Blackwell MD Unavailable Unavailabl e Sara Rodirguez MORTGAGE FIELD INSPECTOR Unavailable [phone] Peter Benavides PA-C Unavailable [phone] Ronald Desai Primary Care Provider [phone] Ronald Desai Primary Care Provider [phone] Tierra Han MORTGAGE FIELD INSPECTOR Unavailable [phone] Encounter Details Date Type Department Care Team Description 02/25/2013 Guide Dog Instructor Report Medical Records [address] [place] [address] Jacob Conde MD Social History Tobacco Use Types Packs/Day [...] on filedocumented in this encounter Care Teams Creative Art Director Relationship Specialty Start Date End Date Geo Avendano MD PCP - General 04/08/07 05/31/[facility] [address] [place] [address] PCP - General Internal Medicine 06/01/22 07/15/22 [facility] [address] [place] [address] PCP - General Internal Medicine 07/16/22 Cheko Hassan MD [address] [place] [address] [place] [address] Putty Tinter Maker Cardiovascular Disease 01/12/21 Mitchell Tapia MD, PHD [address] [place] [address] [place] [address] Specialist Neurosurgery 08/17/21 Ramu Solano MD [address] [place] [address] [place] [address] Specialist Internal Medicine 08/23/21 Sara Rodriguez NP [address] [place] [address] [place] [address] Nurse Practitioner Cardiology 09/20/21 Peter Benavides PA-C 175 [facility] [address] [place] [address] Specialist Neurosurgery 12/07/21 Tierra Han NP [address] [place] [address] Cardiology 07/14/24 documented as of this encounter
--- OUTSIDE RECORDS SUMMARY | 2025-07-09 12:21 | XMS_ITS | Encounter Summary ---
Author Organization [facility] Address [address] [place] [address] Care Team Providers Care Dye Beck Reel Operator Name Role Phone Geo Avendano MD Primary Care Provider Cheko Jaramillo MD Unavailable [phone] Mitchell Tapia MD, PHD Unavailable Unava Ramu Blackwell MD Unavailable Unavailabl e Sara Rodriguez NP Unavailable [phone] Peter Benavides PA-C Unavailable [phone] Ronald Desai Primary Care Provider [phone] Ronald Desai Primary Care Provider [phone] Tierra Han RAILROAD DETECTIVE Unavailable [phone] Encounter Details Date Type Department Care Team Description 01/10/2012 Hospital Medical Records [address] [place] [address] Valdo Reardon Social History Tobacco Use Types Packs/Day Years [...] on filedocumented in this encounter Care Teams Dye Beck Reel Operator Relationship Specialty Start Date End Date Geo Avendano MD PCP - General 04/08/07 05/31/22 [facility] [address] [place] [address] PCP - General Internal Medicine 06/01/22 07/15/22 [facility] [address] [place] [address] PCP - General Internal Medicine 07/16/22 Cheko Hassan MD [address] [place] [address] [place] [address] Birth Attendant Cardiovascular Disease 01/12/21 Mitchell Tapia MD, PHD [address] [place] [address] [place] [address] Specialist Neurosurgery 08/17/21 Ramu Solano MD [address] [place] [address] [place] [address] Specialist Internal Medicine 08/23/21 Sara Rodriguez NP [address] [place] [address] [place] [address] Nurse Practitioner Cardiology 09/20/21 Peter Benavides PA-C 175 [facility] [address] [place] [address] Specialist Neurosurgery 12/07/21 Tierra Han NP [address] [place] [address] Cardiology 07/14/24 documented as of this encounter
--- OUTSIDE RECORDS SUMMARY | 2025-07-09 12:21 | XMS_ITS | Encounter Summary ---
Author Organization [facility] Address [address] [place] [address] Care Team Providers Care Recreational Therapy Technician Name Role Phone Cheko Hassan MD Unavailable [phone] Mitchell Tapia MD, PHD Unavailable Unava ilRamu Reid MD Unavailable Unavailabl e Sara Rodriguez NP Unavailable [phone] Peter Benavides PA-C Unavailable [phone] Ronald Desai Primary Care Provider [phone] Tierra Han NP Unavailable Encounter Details Date Type Department Care Team Description 08/12/2023 Filter Operator Report Medical Records [address] [place] [address] Therapy, Orthopedic Therapy And Physical [address] [place] [address] Social History Tobacco Use Types Packs/Day Years [...] suspected to have Coronavirus/COVID-19? No / Unsure 08/15/2023 10:21 AM EDT documented as of this encounter Plan of Treatment Not on file documented as of this encounter Visit Diagnoses Not on filedocumented in this encounter Care Teams Recreational Therapy Technician Relationship Specialty Start Date End Date Ronald DesaiBreann [address] [place] [address] PCP - General Internal Medicine 07/16/22 Cheko Hassan MD [address] [place] [address] [address] [place] [address] Grouter Helper Cardiovascular Disease 01/12/21 Mitchell Tapia MD, PHD [address] [place] [address] [address] [place] [address] Specialist Neurosurgery 08/17/21 Ramu Solano MD [address] [place] [address] [address] [place] [address] Specialist Internal Medicine 08/23/21 Sara Rodriguez NP [address] [place] [address] [address] [place] [address] Nurse Practitioner Cardiology 09/20/21 Peter Benavides PA-C 175 [facility] [address] [place] [address] Specialist Neurosurgery 12/07/21 Tierra Han NP [address] [place] [address] [address] [place] [address] Cardiology 07/14/24 documented as of this encounter
--- OUTSIDE RECORDS SUMMARY | 2025-07-09 12:21 | XMS_ITS | Encounter Summary ---
Author Organization [facility] Address [address] [place] [address] Care Team Providers Care Psychotherapist Name Role Phone Geo Avendano MD Primary Care Provider Cheko Jaramillo MD Unavailable [phone] Mitchell Tapia MD, PHD Unavailable Unava Ramu Blackwell MD Unavailable Unavailabl e Sara Rodriguez WALLPAPERER Unavailable [phone] Peter Benavides PA-C Unavailable [phone] Ronald Desai Primary Care Provider [phone] Ronald Desai Primary Care Provider [phone] Tierra Han WALLPAPERER Unavailable [phone] Encounter Details Date Type Department Care Team Description 06/20/2017 Orders Only Adult Medicine [address] [address] Geo Avendano MD CKD (chronic kidney disease) stage 3, GFR 30-59 ml/min (Primary Dx) Social History Tobacco Use Types [...] on file documented as of this encounter Procedures Procedure Name Priority Date/Time Associated Diagnosis Comments CHG CREATININE BLOOD Routine 06/20/2017 10:46 AM EDT CKD (chronic kidney disease) stage 3, GFR 30-59 ml/min documented in this encounter Results * CREATININE, BLOOD ASSAY (06/20/2017 10:46 AM EDT) CREAT 1.3 0.7 - 1.5 mg/dL 06/20/2017 1:29 PM EDT [facility] GFR 60 >60 06/20/2017 1:29 PM EDT [facility] Comment: If patient is -Slovenian, multiply result by 1.21 Chronic Kidney Disease: < 60 ml/min/1.73 square meters Kidney Failure: < 15 ml/min/1.73 square meters 06/20/2017 10:4 6 AM EDT 06/20/2017 10:46 AM EDT Geo Avendano MD LAB [facility] [address] [place] [address] documented in this encounter Visit Diagnoses Diagnosis CKD (chronic kidney disease) stage 3, GFR 30-59 ml/min ([facility])- Primary Chronic kidney disease, Stage III (moderate) documented in this encounter Care Teams Psychotherapist Relationship Specialty Start Date End Date Geo Avendano MD PCP - General 04/08/07 05/31/22 Ronald Desai [address] [place] [address] PCP - General Internal Medicine 06/01/22 07/15/22 Ronald Desai [address] [place] [address] PCP - General Internal Medicine 07/16/22 Cheko Hassan MD [address] [place] [address] [place] [address] Head Of Ethics And Compliance Cardiovascular Disease 01/12/21 Mitchell Tapia MD, PHD [address] [place] [address] [place] [address] Specialist Neurosurgery 08/17/21 Ramu Solano MD [address] [place] [address] [place] [address] Specialist Internal Medicine 08/23/21 Sara Rodriguez NP [address] [place] [address] [place] [address] Nurse Practitioner Cardiology 09/20/21 Peter Benavides PA-C [address] [place] [address] [address] [place] [address] Specialist Neurosurgery 12/07/21 Tierra Han NP [address] [place] [address] [address] [place] [address] Cardiology 07/14/24 documented as of this encounter
--- OUTSIDE RECORDS SUMMARY | 2025-07-09 12:21 | XMS_ITS | Encounter Summary ---
Author Organization [facility] Address [address] [place] [address] Care Team Providers Care Acid Tester Name Role Phone Geo Avendano MD Primary Care Provider Cheko Jaramillo MD Unavailable [phone] Mitchell Tapia MD, PHD Unavailable Unava ilRamu Reid MD Unavailable Unavailabl e Sara Rodriguez INSURANCE SOLICITOR Unavailable [phone] Peter Benavides PA-C Unavailable [phone] Ronald Desai Primary Care Provider [phone] Ronald Desai Primary Care Provider [phone] Tierra Han INSURANCE SOLICITOR Unavailable Encounter Details Date Type Department Care Team Description 09/04/2021 Co Supervisor Grounds And Landscape Report Medical Records [address] [place] [address] Ramu Solano MD Social History Tobacco Use [...] have Coronavirus / COVID-19? No / Unsure 08/24/2021 10:37 AM EST documented as of this encounter Plan of Treatment Not on file documented as of this encounter Visit Diagnoses Not on filedocumented in this encounter Care Teams Acid Tester Relationship Specialty Start Date End Date Geo Avendano MD PCP - General 04/08/07 05/31/22 Ronald Desai [address] [place] [address] PCP - General Internal Medicine 06/01/22 07/15/22 RenettaRonald singh [address] [place] [address] PCP - General Internal Medicine 07/16/22 Cheko Hassan MD [address] [place] [address] [place] [address] Indexer Cardiovascular Disease 01/12/21 Mitchell Tapia MD, PHD [address] [place] [address] [place] [address] Specialist Neurosurgery 08/17/21 Ramu Solano MD [address] [place] [address] [place] [address] Specialist Internal Medicine 08/23/21 Sara Rodriguez, RAMAN [address] [place] [address] [place] [address] Nurse Practitioner Cardiology 09/20/21 Peter Benavides PA-C 175 [facility] [address] [place] [address] Specialist Neurosurgery 12/07/21 Tierra Han, RAMAN [address] [place] [address] Cardiology 07/14/24 documented as of this encounter
--- OUTSIDE RECORDS SUMMARY | 2025-07-09 12:21 | XMS_ITS | Encounter Summary ---
Author Organization [facility] Address [address] [place] [address] Care Team Providers Care Flash Ranging Crewmember Name Role Phone Geo Avendano MD Primary Care Provider Cheko Jaramillo MD Unavailable [phone] Mitchell Tapia MD, PHD Unavailable Unava Ramu Blackwell MD Unavailable Unavailabl e Sara Rodriguez SECTION LABORER Unavailable [phone] Peter Benavides PA-C Unavailable [phone] Ronald Desai Primary Care Provider [phone] Ronald Desai Primary Care Provider [phone] Tierra Han SECTION LABORER Unavailable [phone] Reason for Visit * Reason Onset Date Comments LAB WORK 12/16/2020 Encounter Details Date Type Department Care Team Description 12/16/2020 Telephone Adult [address] [address] Geo Avendano MD LAB WORK Social History Tobacco Use Types [...] encounter Miscellaneous Notes * Telephone Encounter - Chuck Salgado M.A. - 12/16/2020 4:28 PM EST Noted, pt is aware * Telephone Encounter - Geo Avendano - 12/16/2020 3:12 PM EST Labs ordered * Telephone Encounter - Carmen Gonzalez - 12/16/2020 2:00 PM EST Patient scheduled 02/01/21 Requesting labs be ordered prior to visit please advise * Telephone Encounter - Ann Tomlinson - 12/16/2020 1:41 PM EST Patient calling to request labs be ordered: What lab work is patient requesting? Routine labwork including cholesterol - pt requests CB concerning this lab work Does patient have an upcoming appointment, if yes when and WITH WHO? yes 02-01-[address] Geo Avendano Patients PCP is: Geo Avendano documented in this encounter Plan of Treatment Not on file documented as of this encounter Results * (ABNORMAL) MAGNESIUM,SERUM (12/21/2020 1:10 PM EST) MAGNESIUM (MG) 1.5(L) 1.9 - 2.6 mg/dL 12/21/2020 4:43 PM EST [facility] 12/21/2020 1:10 PM EST 12/21/2020 1:11 PM EST Geo Avendano MD LAB Performing Organization Address [facility]/ZIP Co de Phone Number [facility] * 25 HYDROXY INCLUDES FRACTIONS IF PERFORMED (12/21/2020 1:10 PM EST) VITAMIN D, 25-HYDROXY 35 30 - 80 ng/mL 12/21/2020 4:50 PM EST [facility] 12/21/2020 1:10 PM EST 12/21/2020 1:11 PM EST Geo Avendano MD LAB Performing Organization Address [facility] Co de Phone Number [facility] * (ABNORMAL) LIPID PROFILE (12/21/2020 1:10 PM EST) Cholesterol 298(H) 0 - 200 mg/dL 12/21/2020 4:43 PM EST [facility] TRIGLYCERIDES 392(H) 0 - 150 mg/dL 12/21/2020 4:43 PM EST [facility] HDL CHOLESTEROL 43 >40 mg/dL 4:53 PM EST [facility] LDL CALCULATED 177(H) 0 - 100 mg/dL 12/21/2020 4:53 PM EST [facility] TC-HDLC RATIO 6.9(H) 0 - 4.4 mg/dL 12/21/2020 4:53 PM EST [facility] 12/21/2020 1:10 PM EST 12/21/2020 1:11 PM EST Geo Avendano MD LAB Performing Organization Address City/[facility]/ZIP Co de Phone Number [facility] * (ABNORMAL) COMPREHENSIVE METABOLIC PANEL (12/21/2020 1:10 PM EST) GLUCOSE 91 70 - 100 mg/dL 12/21/2020 4:43 PM EST [facility] Comment:Reference range appl icable to fasting specimens only Blood Urea Nitrogen 25 5 - 25 mg/dL 12/21/2020 4:43 PM EST [facility] CREAT 1.64(H) 0.7 - 1.3 mg/dL 12/21/2020 4:43 PM EST [facility] GLOMERULAR FILTRATION RATE 42 12/21/2020 4:43 PM EST [facility] Comment: If patient is -Belgian, multiply result by 1.21 Chronic Kidney Disease: < 60 ml/min/1.73 square meters Kidney Failure: < 15 ml/min/1.73 square meters NA 138 135 - 145 mEq/L 12/21/2020 4:43 PM EST [facility] K 4.1 3.5 - 5.5 mmol/L 12/21/2020 4:43 PM EST [facility] CL 106 96 - 110 mmol/L 12/21/2020 4:43 PM EST [facility] CARBON DIOXIDE (CO2) 26 21 - 32 mmol/L 12/21/2020 4:43 PM EST [facility] ANION GAP 6 3 - 11 12/21/2020 4:43 PM EST [facility] CALCIUM 9.6 8.5 - 10.5 mg/dL 12/21/2020 4:43 PM EST [facility] TOTAL PROTEIN (TP) 7.5 6.0 - 8.0 G/dL 12/21/2020 4:43 PM EST [facility] Albumin 4.2 3.2 - 5.0 G/dL 12/21/2020 4:43 PM EST [facility] SGPT 61(H) 10 - 60 U/L 12/21/2020 4:43 PM EST [facility] BILIRUBIN TOTAL 0.4 0.0 - 1.4 mg/dL 12/21/2020 4:53 PM EST [facility] SGOT 42 10 - 42 U/L 12/21/2020 4:53 PM EST [facility] ALK PHOS 94 42 - 121 U/L 12/21/2020 4:53 PM EST [facility] 12/21/2020 1:10 PM EST 12/21/2020 1:11 PM EST Geo Avendano MD LAB [facility] documented in this encounter Visit Diagnoses Diagnosis Hyperlipidemia, unspecified hyperlipidemia type- Primary Low magnesium level Stage 3 chronic kidney disease, unspecified whether stage 3a or 3b CKD (HCC) documented in this encounter Care Teams Flash Ranging Crewmember Relationship Specialty Start Date End Date Geo Avendano MD PCP - General 04/08/07 05/31/22 Ronald Desai [address] [place] [address] PCP - General Internal Medicine 06/01/22 [facility] [address] [place] [address] PCP - General Internal Medicine 07/16/22 Cheko Hassan MD [address] [place] [address] [address] [place] [address] Loom Cleaner Cardiovascular Disease 01/12/21 Mitchell Tapia MD, PHD [address] [place] [address] [place] [address] Specialist Neurosurgery 08/17/21 Ramu Solano MD [address] [place] [address] [address] [place] [address] Specialist Internal Medicine 08/23/21 Sara Rodriguez NP [address] [place] [address] [address] [place] [address] Nurse Practitioner Cardiology 09/20/21 Peter Benavides PA-C [address] [facility] [address] [place] [address] Specialist Neurosurgery 12/07/21 Tierra Han NP [address] [place] [address] [address] [place] [address] Cardiology 07/14/24 documented as of this encounter
--- OUTSIDE RECORDS SUMMARY | 2025-07-09 12:21 | XMS_ITS | Encounter Summary ---
Author Organization [facility] Address [address] [place] [address] Care Team Providers Care Ship'S Master Name Role Phone Geo Avendano MD Primary Care Provider Cheko Jaramillo MD Unavailable [phone] Mitcehll Tapia MD, PHD Unavailable Unava Ramu Blackwell MD Unavailable Unavailabl e Sara Rodriguez TIMERS INSPECTOR Unavailable [phone] Peter Benavides PA-C Unavailable [phone] Ronald Desai Primary Care Provider [phone] Ronald Desai Primary Care Provider [phone] Tierra Han TIMERS INSPECTOR Unavailable [phone] Reason for Visit * Reason Comments E-prescribe Rx Request Encounter Details Date Type Department Care Team Description 05/11/2017 Refill Adult Medicine [address] [address] Geo Avendano MD E-prescribe Rx Request Social [...] encounter Miscellaneous Notes * Telephone Encounter - Geo Avendano - 05/13/2017 12:22 PM EDT Pt needs evaluation * Telephone Encounter - Daisy Frey - 05/13/2017 12:02 PM EDT Patient would like script to be: E-PRESCRIBED/FAXED TO PHARMACY WHEN WAS THE PATIENT'S LAST APPOINTMENT IN ADULT MEDICINE? 04/22/2017 WHEN WAS THE LAST TIME THE PATIENT SAW THEIR PCP? 03/15/2017 Does patient have an upcoming appointment? No[facility]. Appt due June (THE MEDICATION REQUESTED IS ON THE MED LIST ABOVE) One or some of the medications requested were on the HISTORICAL MED list Did you check the Pharmacy information above?: YES Patient wants: 7-day supply Is this a mail order prescription request ? NO Patients current insurance carrier is: Payor: [facility] FFS / Plan: [facility] MEDICARE PREMIUM $15 KARTHAUS / Product Type: MEDICARE [id number] documented in this encounter Plan of Treatment Not on file documented as of this encounter Visit Diagnoses Not on filedocumented in this encounter Care Teams Ship'S Master Relationship Specialty Start Date End Date Geo Avendano MD PCP - General 04/08/07 [facility]/31/22 [facility] [address] [place] [address] PCP - General Internal Medicine 06/01/22 07/15/22 [facility] [place] [place] [address] PCP - General Internal Medicine 07/16/22 Cheko Hassan MD [address] [place] [address] [place] [address] Oyster Culler Cardiovascular Disease 01/12/21 Mitchell Tapia MD, PHD [address] [place] [address] [place] [address] Specialist Neurosurgery 08/17/21 Ramu Solano MD [address] [place] [address] [place] [address] Specialist Internal Medicine 08/23/21 Sara Rodriguez NP [address] [place] [address] [place] [address] Nurse Practitioner Cardiology 09/20/21 Peter Benavides PA-C 175 [facility] [address] [place] [address] Specialist Neurosurgery 12/07/21 Tierra Han NP [address] [place] [address] [place] [address] Cardiology 07/14/24 documented as of this encounter
--- OUTSIDE RECORDS SUMMARY | 2025-07-09 12:21 | XMS_ITS | Encounter Summary ---
Author Organization [facility] Address [address] [place] [address] Care Team Providers Care Golf Ball Molder Name Role Phone Geo Avendano MD Primary Care Provider Cheko Jaramillo MD Unavailable [phone] Mitchell Tapia MD, PHD Unavailable Unava Ramu Blackwell MD Unavailable Unavailabl e Sara Rodriguez MUD MILL TENDER Unavailable [phone] Peter Benavides PA-C Unavailable [phone] Ronald Desai Primary Care Provider [phone] Ronald Desai Primary Care Provider [phone] Tierra Han MUD MILL TENDER Unavailable Encounter Details Date Type Department Care Team Description 10/18/2021 Orders Only Medical Records [address] [place] [address] Geo Avendano MD Social History Tobacco Use [...] have Coronavirus / COVID-19? No / Unsure 10/17/2021 8:47 AM EST documented as of this encounter Plan of Treatment Not on file documented as of this encounter Procedures Procedure Name Priority Date/Time Associated Diagnosis Comments OUTSIDE LAB Routine 10/17/2021 documented in this encounter Results * OUTSIDE LAB (10/17/2021) Geo Avendano MD LAB documented in this encounter Visit Diagnoses Not on filedocumented in this encounter Care Teams Golf Ball Molder Relationship Specialty Start Date End Date Geo Avendano MD PCP - General 04/08/07 05/31/22 Ronald Desai [address] [place] [address] PCP - General Internal Medicine 06/01/22 07/15/22 Ronald Desai [address] [place] [address] PCP - General Internal Medicine 07/16/22 Cheko Hassan MD [address] [place] [address] [place] [address] Tower Supervisor Cardiovascular Disease 01/12/21 Mitchell Tapia MD, PHD [address] [place] [address] [place] [address] Specialist Neurosurgery 08/17/21 Ramu Solano MD [address] [place] [address] [address] [address] Specialist Internal Medicine 08/23/21 Sara Rodriguez NP [address] [place] [address] [address] [address] Nurse Practitioner Cardiology 09/20/21 Peter Benavides PA-C [address] [facility] [address] [address] Specialist Neurosurgery 12/07/21 Tierra Han NP [address] [place] [address] [address] [address] Cardiology 07/14/24 documented as of this encounter
--- OUTSIDE RECORDS SUMMARY | 2025-07-09 12:21 | XMS_ITS | Encounter Summary ---
Author Organization [facility] Address [address] [place] [address] Care Team Providers Care Shear Operator Helper Name Role Phone Geo Avendano MD Primary Care Provider Cheko Jaramillo MD Unavailable [phone] Mitchell Tapia MD, PHD Unavailable Unava Ramu Blackwell MD Unavailable Unavailabl e Sara Rodriguez RIVER EXPEDITION GUIDE Unavailable [phone] Peter Benavides PA-C Unavailable Ronald Desai Primary Care Provider [phone] Ronald Desai Primary Care Provider [phone] Tierra Han RIVER EXPEDITION GUIDE Unavailable [phone] Encounter Details Date Type Department Care Team Description 04/17/2022 SCAN [facility] Medical [facility] Neurosurgery [place] [address] [place] [address] Mitchell Tapia MD, PHD Social [...] suspected to have Coronavirus/COVID-19? No / Unsure 04/19/2022 9:50 AM EDT documented as of this encounter Plan of Treatment Not on file documented as of this encounter Visit Diagnoses Not on filedocumented in this encounter Care Teams Shear Operator Helper Relationship Specialty Start Date End Date Geo Avendano MD PCP - General 04/08/07 05/31/22 Ronald Desai [address] [place] [address] PCP - General Internal Medicine 06/01/22 07/15/22 Ronald Desai [address] [place] [address] PCP - General Internal Medicine 07/16/22 Cheko Hassan MD [address] [place] [address] [place] [address] Certified Wellness Program Manager Cardiovascular Disease 01/12/21 Mitchell Tapia MD, PHD [address] [place] [address] [place] [address] Specialist Neurosurgery 08/17/21 Ramu Solano MD [address] [place] [address] [place] [address] Specialist Internal Medicine 08/23/21 Sara Rodriguez, RAMAN [address] [place] [address] [place] [address] Nurse Practitioner Cardiology 09/20/21 Peter Benavides PA-C [address] [facility] [address] [place] [address] Specialist Neurosurgery 12/07/21 Tierra Han NP [address] [place] [address] Cardiology 07/14/24 documented as of this encounter
--- OUTSIDE RECORDS SUMMARY | 2025-07-09 12:21 | XMS_ITS | Encounter Summary ---
Author Organization [facility] Address [address] [place] [address] Care Team Providers Care Crusher And Blender Operator Name Role Phone Cheko Hassan MD Unavailable [phone] Mitchell Tapia MD, PHD Unavailable Unava ilRamu Reid MD Unavailable Unavailabl e Sara Rodriguez SHELL WORKER Unavailable [phone] Peter Benavides PA-C Unavailable Ronald Desai Primary Care Provider Tierra Han NP Unavailable [phone] Reason for Visit * Reason Onset Date Comments EKG 06/11/2023 Encounter Details Date Type Department Care Team Description 06/11/2023 Telephone Adult Medicine [address] [address] Ronald Desai [address] [place] [id number] EKG Social History Tobacco Use Types Packs/Day Years [...] encounter Miscellaneous Notes * Telephone Encounter - Erasto Chavez C.N.A. - 06/11/2023 1:48 PM EDT [facility] states pt is being seen tomorrow for a usual follow up and does not need EKG to be faxed or redone * Telephone Encounter - Gloria Gonzalez - 06/11/2023 11:19 AM EDT EKG not scanned into juan / Erasto with get the copy and fax it to his shipping hand * Telephone Encounter - Benita Mcgarry - 06/11/2023 10:50 AM EDT Patient states that they went to [facility] Cardiology and that they have not received any faxes regarding the EKG that was done here with us recently. Patient would like the EKG to be faxed overto their office but could not provide a fax number. documented in this encounter Plan of Treatment Not on file documented as of this encounter Visit Diagnoses Not on filedocumented in this encounter Care Teams Crusher And Blender Operator Relationship Specialty Start Date End Date Ronald DesaiBreann [address] [place] [address] PCP - General Internal Medicine 07/16/22 Cheko Hassan MD [address] [place] [address] Rn Teacher Cardiovascular Disease 01/12/21 Mitchell Tapia MD, PHD [address] [place] [address] [address] [place] [address] Specialist Neurosurgery 08/17/21 Ramu Solano MD [address] [place] [address] [address] [place] [address] Specialist Internal Medicine 08/23/21 Sara Rodriguez NP [address] [place] [address] [place] [address] Nurse Practitioner Cardiology 09/20/21 Peter Benavides PA-C [address] [facility] [address] [place] [address] Specialist Neurosurgery 12/07/21 Tierra Han NP [address] [place] [address] [address] [place] [address] Cardiology 07/14/24 documented as of this encounter
--- OUTSIDE RECORDS SUMMARY | 2025-07-09 12:21 | XMS_ITS | Clinical Summary ---
Author Organization [facility] Address [address] [place] [address] Care Team Providers Care Is Project Manager Name Role Phone Cheko Hassan MD Unavailable [phone] Mitchell Tapia MD, PHD Unavailable Unava ilable Ramu Solano MD Unavailable Unavailabl e Sara Rodriguez NP Unavailable [phone] Peter Benavides PA-C Unavailable [phone] Ronald Desai Primary Care Provider [phone] Tierra Han NP Unavailable [phone] Allergies Active Allergy Reactions Severity Noted Date Comments Dust Runny Nose/Rhinitis High 10/25/2009 Fd&C Blue #1-Pravastatin 10/15/2012 myalgias Medications Medication Sig Dispensed Refills Start Date End Date Status SPACER DEVICE-ADULT 1 Each by Does not apply route daily. 1 Each 0 03/28/2015 Active hydrocortisone 2.5 % cream Apply to affected areas, daily or twice daily, as directed. 60 g 6 09/23/2015 Active carboxymethylcellul ose (REFRESH PLUS) 0.5 % Solution apply 1 Drop to the eye 3 times daily as needed (when dry or gritty). 1 Bottle 5 08/15/2017 Active Multiple Vitamins-Minerals (ZINC OR) Take by mouth daily. 0 Active ketoconazole (NIZORAL) 2 % shampoo Apply to scalp daily prn 120 mL 5 08/06/2019 Active Zinc Gluconate 50 MG Cap Take 1 Capsule by mouth daily. 0 Active lidocaine (LIDODERM) 5 % Place 1 Patch onto the skin every 24 hours. Apply for no more than 12 hours in any 24 hour period. 28 Patch 1 07/16/2022 Active Calcium Carb-Cholecalcifero l (Calcium 1000 + D) 1000-20 MG-MCG Tab Take 1 Tablet by mouth daily. 90 Tablet 1 06/11/2023 Active furosemide (LASIX) 20 MG tablet TAKE 1 TABLET BY MOUTH EVERY DAY NEEDED FOR LEG EDEMA. 90 Tablet 1 11/11/2023 Active pantoprazole (PROTONIX) 20 MG tablet Take 1 Tablet by mouth 2 times daily. 180 Tablet 1 11/20/2023 Active Ipratropium-Albuter ol 0.5-2.5 (3) MG/3ML Solution Inhale 3 mL into the lungs 4 times daily as needed (SOB/ wheezing). 300 mL 1 11/20/2023 Active Lactobacillus (Acidophilus) 0.5 MG Tab Take 1 Tablet by mouth 2 times daily. 30 Tablet 0 11/27/2023 Active Magnesium 100 MG Tab Take 1 Tablet by mouth daily. 30 Tablet 3 01/01/2024 Active Evolocumab (Repatha SureClick) 140 MG/ML Solution Auto-injector Inject 140 mg into the skin every 14 days. 6 mL 2 01/02/2024 Active fexofenadine (Moon Allergy) 180 MG tablet Take 1 Tablet by mouth at bedtime. 14 Tablet 0 01/13/2024 Active lorazepam (Ativan) 1 MG tablet Take one tablet 30 minutes before the MRI scan for claustrophobia 2 Tablet 0 01/22/2024 Active ALBUTEROL SULFATE (ProAir HFA) 108 (90 Base) MCG/ACT Aero Soln Inhale 2 Puffs into the lungs every 6 hours as needed for Wheezing or Shortness of Breath. This is a Rescue Medication; not exceed 12 inhalations/24 hrs. 1 g 3 03/04/2024 Active Fluticasone-Salmete rol (Wixela Inhub) 500-50 MCG/ACT AEROSOL POWDER,BREATH ACTIVATEDIndication s:Mild persistent asthma without complication Inhale 1 Puff into the lungs 2 times daily. 180 Each 3 03/04/2024 Active fluticasone 50 MCG/ACT nasal spray INSTILL 2 SPRAYS IN EACH NOSTRIL ONCE A DAY 48 mL 1 04/06/2024 Active cyclobenzaprine (FLEXERIL) 10 MG tablet TAKE 1 TABLET TWICE DAILY NEEDED FOR MUSCLE SPASM.MAY CAUSE DROWSINESS.DONT DRIVE 30 Tablet 0 04/06/2024 Active diazepam (Valium) 5 MG tablet Take 1 Tablet by mouth See Admin Instructions. Take 1 tablet 1 hour before MRI scan. This medication may cause drowsiness/sleepine ss and you need a ride on that day 2 Tablet 0 04/21/2024 Active Albuterol-Budesonid e 90-80 MCG/ACT Aerosol Take by mouth every 6 hours as needed. 0 Active doxycycline (VIBRA-TABS) 100 MG tablet Take 1 Tablet by mouth 2 Times Daily. 0 Active fluticasone (Flonase Allergy Relief) 50 MCG/ACT nasal spray by Nasal route daily. 0 Active omeprazole (PRILOSEC) 20 MG capsule Take 1 Capsule by mouth daily. 0 01/04/2021 Active bisacodyl (DULCOLAX) 5 MG EC tablet TAKE 2 TABS AT 6PM DIRECTED. 0 Active carbamide peroxide (Murine Ear) 6.5 % otic solution PLEASE SEE ATTACHED FOR DETAILED DIRECTIONS 0 Active carbidopa-levodopa (SINEMET) 25-100 MG per tablet TAKE 1 TABLET BY MOUTH THREE TIMES A DAY FOR 30 DAYS 0 Active cetirizine (ZYRTEC) 10 MG tablet 0 Active dicyclomine (BENTYL) 10 MG capsule 0 Active fenofibrate micronized (LOFIBRA) 200 MG capsule TAKE 1 CAPSULE BY MOUTH EVERY DAY IN THE MORNING BEFORE BREAKFAST 0 Active loratadine (CLARITIN) 10 MG tablet Take 1 Tablet by mouth daily. 0 Active polyethylene glycol (GaviLAX) 17 GM/SCOOP powder PLEASE SEE ATTACHED FOR DETAILED DIRECTIONS 0 Active tizanidine (ZANAFLEX) 4 MG tablet TAKE 1 TABLET BY MOUTH DAILY NEEDED FOR MUSCLE SPASMS. 0 Active valacyclovir (VALTREX) 500 MG tablet Take 1 tablet every day by oral route. 0 Active Ipratropium-Albuter ol (Combivent Respimat) 20-100 MCG/ACT Aero Soln INHALE 1 PUFF EVERY 4 TO 6 HOURS 0 Active donepezil (ARICEPT) 10 MG tablet TAKE 1 TABLET BY MOUTH AT BEDTIME 0 Active Docusate Sodium (DSS) 100 MG Cap Take 1 Tablet by mouth 2 Times Daily. 0 Active Multiple Vitamins-Iron (DAILY-RG/IRON OR) 0 Active [place] Saline Nasal GelIndications:Obst ructive sleep apnea syndrome,Mild persistent asthma with acute exacerbation 0.5 Inches by Nasal route 2 times daily as needed for Other (nasal dryness or congestion, with use of CPAP). 30 g 1 05/13/2024 Active Alum & Mag Hydroxide-Simeth 200-200-20 MG/5ML Suspension Take 30 mL by mouth 4 times daily as needed for Other. 1680 mL 11 05/14/2024 Active montelukast (SINGULAIR) 10 MG tabletIndications:M ild persistent asthma with acute exacerbation TAKE 1 TABLET BY MOUTH AT BEDTIME 90 Tablet 1 05/21/2024 Active losartan (COZAAR) 25 MG tablet Take 1 Tablet by mouth daily. 90 Tablet 1 05/27/2024 Active aspirin (Aspirin Low Dose) 81 MG EC tablet Take 1 Tablet by mouth daily. 90 Tablet 1 05/27/2024 Active ezetimibe (ZETIA) 10 MG tabletIndications:H yperlipidemia, unspecified hyperlipidemia type TAKE 1 TABLET BY MOUTH DAILY FOR CHOLESTEROL 90 Tablet 1 06/01/2024 Active D-1000 Extra Strength 25 MCG (1000 UT) Tab TAKE 1 TABLET BY MOUTH EVERY DAY 90 Tablet 1 07/09/2024 Active gabapentin (NEURONTIN) 300 MG capsule 0 08/10/2024 Active Active Problems Problem Noted Date Muscle twitch 05/27/2024 Sensation of lump in throat 04/17/2024 Lumbar radiculopathy 11/20/2023 Allergic rhinitis 10/28/2023 Overview: Other allergic rhinitis; Note: Date Diagnosed: 10/28/2023 2:26 PM (J30.89) Note: Date Diagnosed: 10/28/2023 2:26 PM (J30.89) Obstructive sleep apnea syndrome 023 Overview: Obstructive sleep apnea (adult) (pediatric); Note: Date Diagnosed: 04/05/2023 9:18 AM (G47.33) Note: Date Diagnosed: 04/05/2023 9:18 AM (G47.33) Peripheral neuropathy 01/25/2023 S/P lumbar fusion 01/25/2023 Localized, primary osteoarthritis of alex ulder region 12/27/2022 Epigastric discomfort 10/31/2022 Last Assessment & Plan: Patient reports ongoing complaints of epigastric discomfort. He is on omeprazole 20 mg twice daily. He had a stress test and echocardiogram completed within the last year. On physical examination discomfort is reproducible with palpation. Patient encouraged to follow-up with gastroenterology and complete endoscopy as previously recommended. Nontraumatic complete tear of right rota tor cuff 09/05/2022 Impingement syndrome of shoulder region 09/05/2022 Bilateral shoulder region arthritis 08/15 Primary hypertension 06/26/2022 Last Assessment & Plan: Patient's blood pressure is well-controlled today. He will continue his current antihypertensive medication regimen as prescribed. Dyspnea 04/19/2022 Last Assessment & Plan: Patient reporting exertional shortness of breath which has not worsened. We discussed that his symptoms are likely related to his history of asthma/COPD and has been following with pulmonology. Given his upcoming surgery, recommend he undergo pharmacological nuclear stress test to rule out ischemia prior to surgery and to update his cardiac testing. Will also arrange for an echocardiogram to be completed to reassess his LV function and assess for any valvular changes. The echocardiogram does not need to be completed prior to surgery. 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 08/22/2021 Overview: Mixed conductive and sensorineural hearing loss, unilateral, right ear with restricted hearing on the contralateral side; Note: Date Diagnosed: 08/22/2021 9:56 AM (H90.A31) Note: Date Diagnosed: 08/22/2021 9:56 AM (H90.A31) Neck pain 08/22/2021 Overview: Headache, unspecified; Note: Date Diagnosed: 08/22/2021 9:00 AM (R51.9) Note: Date Diagnosed: 08/22/2021 9:00 AM (R51.9) Cervicalgia; Note: Date Diagnosed: 08/22/2021 9:00 AM (M54.2) Note: Date Diagnosed: 08/22/2021 9:00 AM (M54.2) Refractory migraine 08/22/2021 Overview: Other migraine, intractable, without status migrainosus; Note: Date Diagnosed: 08/22/2021 9:53 AM (G43.819) Note: Date Diagnosed: 08/22/2021 9:53 AM (G43.819) Sensorineural hearing loss (SNHL) of lef t ear 08/22/2021 Overview: Sensorineural hearing loss, unilateral, left ear, with restricted hearing on the contralateral side; Note: Date Diagnosed: 08/22/2021 9:56 AM (H90.A22) Note: Date Diagnosed: 08/22/2021 9:56 AM (H90.A22) Herpes simplex infection 07/07/2021 Muscle cramps 03/17/2021 Last Assessment & Plan: Its not quite [...] not myalgias. Flatulence, eructation, and gas pain 08/2021 Chronic pharyngitis 10/13/2019 Overview: Chronic sore throat; Note: Date Diagnosed: 10/13/2019 10:02 AM (J31.2) Note: Date Diagnosed: 10/13/2019 10:02 AM (J31.2) Sensorineural hearing loss (SNHL) of bot h ears 09/25/2019 Overview: Sensorineural hearing loss, bilateral; Note: Date Diagnosed: 09/25/2019 10:40 AM (H90.3) Note: Date Diagnosed: 09/25/2019 10:40 AM (H90.3) Bilateral acute serous otitis media 05/2019 Overview: Acute serous otitis media, bilateral; Note: Date Diagnosed: 07/21/2019 10:37 AM (H65.03) Note: Date Diagnosed: 07/21/2019 10:37 AM (H65.03) Acute frontal sinusitis 07/07/2019 Overview: Acute frontal sinusitis, unspecified; Location: right Note: Date Diagnosed: 07/07/2019 2:09 PM (J01.10) Location: right Location: right Location: right Note: Date Diagnosed: 07/07/2019 2:09 PM (J01.10) Cervical spinal stenosis 08/18/2018 Otalgia of both ears 08/15/2018 Overview: Otalgia, bilateral; Note: Date Diagnosed: 08/15/2018 2:32 PM (H92.03) Note: Date Diagnosed: 08/15/2018 2:32 PM (H92.03) Dysphagia 08/15/2018 Overview: Dysphagia, unspecified; Note: Date Diagnosed: 11/03/2014 3:16 PM (787.20) Note: Date Diagnosed: 11/03/2014 3:16 PM (787.20) ; Start Date : 11/03/2014 Dysphagia, unspecified; Note: Date Diagnosed: 08/15/2018 2:32 PM (R13.10) Note: Date Diagnosed: 08/15/2018 2:32 PM (R13.10) Gallbladder polyp 04/09/2018 Overview: Ultrasound 03/2018, radiology recommends repeat in 1 year Pre-operative cardiovascular examination 04/08/2018 Overview: 04/08/2018: Inability to tolerate bowel preparation. Change to stool testing/FIT. Last Assessment & Plan: Patient's cardiac problems are optimized on current medical therapy. Patient's activity level represents greater than 4 METS, however he does experience dyspnea on exertion. Patient requires further testing at this time with a pharmacological nuclear stress test. Barring any abnormalities, the patient is acceptable risk for surgical procedure. Mild persistent asthma without complicat ion 08/01/2017 Methacholine challenge positive 08/01/20 17 Gastroesophageal reflux disease without esophagitis 08/01/2017 Obesity (BMI 30-39.9) 08/01/2017 Snoring 07/15/2017 Overview: 07/04/2017 Home Sleep Study did not reveal sleep apnea. Infective otitis externa of right ear Overview: Other infective otitis externa, left ear; Note: Date Diagnosed: 05/15/2017 12:29 PM (H60.392) Note: Date Diagnosed: 05/15/2017 12:29 PM (H60.392) Other infective otitis externa, right ear; Note: Date Diagnosed: 04/26/2017 11:45 AM (H60.391) Note: Date Diagnosed: 04/26/2017 11:45 AM (H60.391) Dizziness and giddiness 04/03/2017 Overview: Dizziness and giddiness; Note: Date Diagnosed: 04/03/2017 2:23 PM (R42) Note: Date Diagnosed: 04/03/2017 2:23 PM (R42) Posterior rhinorrhea 04/03/2017 Overview: Postnasal drip; Note: Date Diagnosed: 04/03/2017 2:25 PM (R09.82) Note: Date Diagnosed: 04/03/2017 2:25 PM (R09.82) Acute pharyngitis 04/03/2017 Overview: Pharyngitis (acute) NOS; Note: Date Diagnosed: 04/03/2017 2:23 PM (J02.9) Note: Date Diagnosed: 04/03/2017 2:23 PM (J02.9) Chronic mycotic otitis externa 7 Overview: Candidal otitis externa; Location: right Note: Date Diagnosed: 10/17/2016 2:10 PM (B37.84) Location: right Location: right Location: right Note: Date Diagnosed: 10/17/2016 2:10 PM (B37.84) Chronic mycotic otitis externa; Note: Date Diagnosed: 10/17/2016 2:04 PM (380.15) Note: Date Diagnosed: 10/17/2016 2:04 PM (380.15) Otorrhea of right ear 06/08/2016 Overview: Impacted cerumen, right ear; Note: Date Diagnosed: [...] 06/08/2016 1:45 PM (H92.11) Bilateral tinnitus 03/07/2016 Overview: Tinnitus, bilateral; Note: Date Diagnosed: 03/07/2016 10:22 AM (H93.13) Note: Date Diagnosed: 03/07/2016 10:22 AM (H93.13) Cellulitis of left external ear 02/22/20 16 Overview: Cellulitis of left external ear; Note: Date Diagnosed: 02/22/2016 9:24 AM (H60.12) Note: Date Diagnosed: 02/22/2016 9:24 AM (H60.12) Disorder of both eustachian tubes 2015 Overview: Other specified disorders of Eustachian tube, right ear; Note: Date Diagnosed: 12/28/2019 1:01 PM (H69.81) Note: Date Diagnosed: 12/28/2019 1:01 PM (H69.81) Other specified disorders of Eustachian tube, bilateral; Note: Date Diagnosed: 02/22/2016 9:23 AM (H69.83) Note: Date Diagnosed: 02/22/2016 9:23 AM (H69.83) Elevated PSA 01/18/2016 Nuclear sclerosis of both eyes 04/01/201 6 Spinal stenosis of lumbar region 016 Cervical radiculopathy 11/08/2015 Cervical stenosis of spinal canal 2015 Lung nodule seen on imaging study 2014 Overview: Chest xray March 2015, repeat in 3 mo recommended Stable, recheck in 6 months June 2015 Chronic obstructive pulmonary disease Overview: Dr Qiu Dysphagia 01/27/2015 Overview: Seen and evalauted by Dr. Conde Cognitive impairment 10/15/2012 Overview: Seen with Tabitha, now on Aricept Stage 3 chronic kidney disease 2 NEO on CPAP 06/01/2011 Overview: [facility] [place] Home Sleep Apnea Test: Date 11/06/2022; BMI 31; AHI 6; average oxygen saturation 94% (lowest 85% without saturations <88% for 5% or more of study) - Obstructive Sleep Apnea - mild; without sleep related hypoventilation by 2022 home sleep apnea test. ENT: Evaluation for Snoring and Sleep Apnea on 06/18/2023 Recommended MAD device Mixed hyperlipidemia 10/18/2010 Overview: Poor tolerability of statin due to myalgias. [...] of lipids. Adjustment disorder with mixed anxiety a nd depressed mood 03/29/2010 Renal cyst 01/04/2010 Overview: Dr. Amezcua / Dr. Amezcua Tear of supraspinatus tendon 01/17/2009 Dysplastic nevi 10/30/2007 Overview: Dysplastic nevi 10/23 back (mild atypia) 10/21 Back x 2 (mildly) Multiple Nevi romoved from lip, scalp, neck, face, trunk on 09/14/2015 - Dr Terrence Johnson Abnormality of gait 07/04/2007 Thoracic or lumbosacral neuritis or radi culitis, unspecified 07/04/2007 Overview: IMO update Allergic rhinitis, cause unspecified Hepatomegaly Resolved Problems Problem Noted Date Resolved Date Heart murmur 04/19/2022 07/14/2024 Last Assessment & Plan: On physical examination [...] and he is euvolemic on physical examination. Pain in joint, shoulder region 01/23/2008 0 01/13/2016 Displacement of lumbar inter vertebral disc without myelopathy 08/01/2007 01/13/2016 Immunizations Name Administration Dates Next Due COVID-19 (Pfizer) 10/28/2023,,10/03/2021,01/09,12/19/2020 COVID-19 (Pfizer) Pt Reported 11/04/2021, 021,12/19/2020 Influenza (> 6 Months) 07/28/2020,2018,09/12/2016,09/28,07/17/2013,08/08/2012,06/21/2011 ,06/28/2010,09/22/2009 Influenza (>6 Months) Split Preservative Free 07/10/2015,07/10/2015 Influenza H1N1 Pandemic Flu Vaccine 09/22/2009 Influenza Vaccine-preservati ve Free-quadrivalent 4 Years 07/28/2020,07/15/2018 Influenza Vaccine-quadrivale nt 4 Years Plus 07/16/2017 Influenza vaccine high dose age 65 and over 08/12/2024,07/16/2022,07/07/2021 Pneumoccoccal(Adult) Polysac charide PPSV23 07/15/2018 Pneumococcal Conjugate PCV-13 08/17/2022 Shingrix (Recombinant zoster vaccine) 05/29/2021 ,02/24/2021 TD (STATE SUPPLIED FOR ADULT S AND CHILDREN) 07/16/2017,07/16/2017 Tdap 05/28/2007 Family History Medical History Relation Name Comments No Known Problems Aunt No Known Problems Brother Glaucoma Father No Known Problems Maternal Grandfather No Known Problems Maternal Grandmother Cancer of the Lung Mother No Known Problems Other No Known Problems Paternal Grandfather No Known Problems Paternal Grandmother CA Breast Sister 40s, uni No Known Problems Uncle Blindness Negative Hx Cataract Negative Hx Macular Degeneration Negative Hx Strabismus Negative Hx Relation Name Status Comments Aunt Brother Father Alive unknown Maternal Grandfather Maternal Grandmother Mother Other Paternal Grandfather Paternal Grandmother Sister Uncle Social History Tobacco Use Types Packs/Day Years Used Date Smoking Tobacco: Never Passive Smoke Exposure: Past Smokeless Tobacco: Never Tobacco Cessation:Counseling Given: Not [...] file Not on file Not on file Last Filed Vital Signs Vital Sign Reading Time Taken Comments Blood Pressure 128/84 08/13/2024 9:26 AM EDT Pulse 91 08/13/2024 9:26 AM EDT Temperature 36.1 C (96.9 F) 08/13/2024 9:26 AM EDT Respiratory Rate 16 08/13/2024 9:26 AM EDT Oxygen Saturation 99% 08/13/2024 9:26 AM EDT Inhaled Oxygen Concentration - - Weight 105.1 kg (231 lb 9.6 oz) 08/13/2024 9:26 AM EDT Height 182.9 cm (6') 08/13/2024 9:26 AM EDT Body Mass Index 31.41 08/13/2024 9:26 AM EDT Plan of Treatment Health Maintenance Due Date Last Done Comments PNEUMOCOCCAL VACCINE (3 - PP SV23 or PCV20) 08/17/2023 08/17/2022, 07/15/2018 BMI CHECK/ADVISE 10/14/2024 08/13/2024, , 05/27/2024, Additional history exists COLON CANCER SCREEN WITH STO OL CARD 04/03/2025 04/03/2024 (Completed), 01/30/2023, 08/04/2020, Additional history exists Covid-19 Vaccine ( season) 2025 10/28/2023, 08/24/2022, 11/04/2021, Additional history exists INFLUENZA (#1) 2025 08/12/2024, 12/2021, 07/07/2021, Additional history exists DTAP/TDAP/TD (4 - Td or Tdap) 07/16/2027, 07/16/2017, 05/28/2007 CHOLESTEROL SCREENING 04/30/2029 04/30/2024 , 12/13/2023, 05/22/2023, Additional history exists HEPATITIS C SCREENING Completed 06/06/2007 SHINGLES VACCINE Completed 05/29/2021, 02/24/2021 Care Teams Is Project Manager Relationship Specialty Start Date End Date Ronald Desai [address] [place] [address] PCP - General Internal Medicine 07/16/22 Cheko Hassan MD [address] [facility] [address] [place] [address] Riprap Placing Supervisor Cardiovascular Disease 01/12/21 Mitchell Tapia MD, PHD [address] [facility] [address] [place] [address] Specialist Neurosurgery 08/17/21 Ramu Solano MD [address] [place] [address] [address] [place] [address] Specialist Internal Medicine 08/23/21 Sara Rodriguez NP [address] [place] [address] [address] [place] [address] Nurse Practitioner Cardiology 09/20/21 Peter Benavides PA-C [address] [facility] [address] [place] [address] Specialist Neurosurgery 12/07/21 Tierra Han NP [address] [place] [address] [address] [place] [address] Cardiology 07/14/24
--- OUTSIDE RECORDS SUMMARY | 2025-07-09 12:21 | XMS_ITS | Encounter Summary ---
Author Organization [facility] Address [address] [place] [address] Care Team Providers Care Equipment Maintenance Tech Name Role Phone Geo Avendano MD Primary Care Provider Cheko Jaramillo MD Unavailable [phone] Mitchell Tapia MD, PHD Unavailable Unava Ramu Blackwell MD Unavailable Unavailabl e Sara Rodriguez ARTILLERY MAINTENANCE SUPERVISOR Unavailable [phone] Peter Benavides PA-C Unavailable [phone] Ronald Desai Primary Care Provider [phone] Ronald Desai Primary Care Provider [phone] Tierra Han ARTILLERY MAINTENANCE SUPERVISOR Unavailable [phone] Reason for Visit * Reason Onset Date Comments Annual Wellness Outreach 08/08/2021 Encounter Details Date Type Department Care Team Description 08/08/2021 Telephone Adult Medicine [address] [address] Jaime Schroeder DO Annual Wellness Outreach Social History Tobacco Use Types Packs/Day Years [...] have Coronavirus / COVID-19? No / Unsure 08/02/2021 8:56 AM EDT documented as of this encounter Miscellaneous Notes * Telephone Encounter - Jacob Alexander - 08/11/2021 2:59 PM EDT Patient calling back looking to speak to nurse * Telephone Encounter - Lynn Birmingham - 08/08/2021 1:53 PM EDT Mr. Ceballos was contacted by telephone. First attempt documented in this encounter Plan of Treatment Not on file documented as of this encounter Visit Diagnoses Not on filedocumented in this encounter Care Teams Equipment Maintenance Tech Relationship Specialty Start Date End Date Geo Avendano MD PCP - General 04/08/07 05/31/22 [place] [address] PCP - General Internal Medicine 06/01/22 07/15/22 Ronald Desai [address] [place] [address] PCP - General Internal Medicine 07/16/22 Cheko Hassan MD [address] [facility] [address] [place] [address] Personnel Interviewer Cardiovascular Disease 01/12/21 Mitchell Tapia MD, PHD [address] [facility] [address] [place] [address] Specialist Neurosurgery 08/17/21 Ramu Solano MD [address] [facility] [address] [place] [address] Specialist Internal Medicine 08/23/21 Sara Rodriguez NP [address] [facility] [address] [place] [address] Nurse Practitioner Cardiology 09/20/21 Peter Benavides PA-C [address] [place] [address] [address] [place] [address] Specialist Neurosurgery 12/07/21 Tierra Han NP [address] [facility] [address] [place] [address] Cardiology 07/14/24 documented as of this encounter
--- OUTSIDE RECORDS SUMMARY | 2025-07-09 12:21 | XMS_ITS | Encounter Summary ---
Author Organization [facility] Address [address] [place] [address] Care Team Providers Care Deli Slicer Name Role Phone Cheko Hassan MD Unavailable [phone] Mitchell Tapia MD, PHD Unavailable Unava ilable Ramu Solano MD Unavailable Unavailabl e Sara Rodriguez STORE CASHIER Unavailable [phone] Peter Benavides PA-C Unavailable [phone] Ronald Desai Primary Care Provider [phone] Tierra Han NP Unavailable [phone] Encounter Details Date Type Department Care Team Description 06/18/2023 Test Design Engineer Report Medical Records [address] [place] [address] Jacob Conde MD Social History Tobacco Use [...] on filedocumented in this encounter Care Teams Deli Slicer Relationship Specialty Start Date End Date Ronald Desai [address] [place] [address] PCP - General Internal Medicine 07/16/22 Cheko Hassan MD [address] [place] [address] [address] [place] [address] Merchandise Stocker Cardiovascular Disease 01/12/21 Mitchell Tapia MD, PHD [address] [place] [address] [address] [place] [address] Specialist Neurosurgery 08/17/21 Ramu Solano MD [address] [place] [address] [address] [place] [address] Specialist Internal Medicine 08/23/21 Sara Rodriguez NP [address] [place] [address] [address] [place] [address] Nurse Practitioner Cardiology 09/20/21 Peter Benavides PA-C [address] [facility] [address] [place] [address] Specialist Neurosurgery 12/07/21 Tierra Han NP [address] [place] [address] [address] [place] [address] Cardiology 07/14/24 documented as of this encounter
--- OUTSIDE RECORDS SUMMARY | 2025-07-09 12:21 | XMS_ITS | Encounter Summary ---
Author Organization [facility] Address [address] [place] [address] Care Team Providers Care Channel Cementer Insole Machine Name Role Phone Cheko Hassan MD Unavailable [phone] Mitchell Tapia MD, PHD Unavailable Unava ilable Ramu Solano MD Unavailable Unavailabl e Sara Rodriguez TECHNICAL STAFF ASSISTANT Unavailable [phone] Peter Benavides PA-C Unavailable [phone] Ronald Desai Primary Care Provider [phone] Tierra Han NP Unavailable [phone] Encounter Details Date Type Department Care Team Description 04/10/2023 Water Well Driller Report Medical Records [address] [place] [address] Peter Salazar MD Social History Tobacco Use [...] suspected to have Coronavirus/COVID-19? No / Unsure 04/05/2023 1:56 PM EDT documented as of this encounter Plan of Treatment Not on file documented as of this encounter Visit Diagnoses Not on filedocumented in this encounter Care Teams Channel Cementer Insole Machine Relationship Specialty Start Date End Date Ronald Desai [address] [place] [address] PCP - General Internal Medicine 07/16/22 Cheko Hassan MD [address] [place] [address] [place] [address] Financial Aid Administrator Cardiovascular Disease 01/12/21 Mitchell Tapia MD, PHD [address] [place] [address] [place] [address]96 Specialist Neurosurgery 08/17/21 Ramu Solano MD [address] [place] [address] [place] [address]55 Specialist Internal Medicine 08/23/21 Sara Rodriguez NP [address] [place] [address] [address] [place] [address] Nurse Practitioner Cardiology 09/20/21 Peter Benavides PA-C [address] [facility] [address] [place] [address] Specialist Neurosurgery 12/07/21 Tierra Han NP [address] [place] [address] [address] [place] [address] Cardiology 07/14/24 documented as of this encounter
--- OUTSIDE RECORDS SUMMARY | 2025-07-09 12:21 | XMS_ITS | Encounter Summary ---
Author Organization [facility] Address [address] [place] [address] Care Team Providers Care Law Librarian Name Role Phone Geo Avendano MD Primary Care Provider Cheko Jaramillo MD Unavailable [phone] Mitchell Tapia MD, PHD Unavailable Unava Ramu Blackwell MD Unavailable Unavailabl e Sara Rodriguez FUN HOUSE ATTENDANT Unavailable [phone] Peter Benavides PA-C Unavailable [phone] Ronald Desai Primary Care Provider [phone] Ronald Desai Primary Care Provider [phone] Tierra Han FUN HOUSE ATTENDANT Unavailable [phone] Encounter Details Date Type Department Care Team Description 09/15/2012 Umbrella Cutter Report Medical Records [address] [place] [address] Kurtis Pantoja MD Social History Tobacco Use Types Packs/Day [...] on filedocumented in this encounter Care Teams Law Librarian Relationship Specialty Start Date End Date Geo Avendano MD PCP - General 04/08/07 [facility]31[facility] [address] [place] [address] PCP - General Internal Medicine 06/01/22 07/15/22 [facility] [address] [place] [address] PCP - General Internal Medicine 07/16/22 Cheko Hassan MD [address] [place] [address] [place] [address] Compliance Associate Cardiovascular Disease 01/12/21 Mitchell Tapia MD, PHD [address] [place] [address] [place] [address] Specialist Neurosurgery 08/17/21 Ramu Solano MD [address] [place] [address] [place] [address] Specialist Internal Medicine 08/23/21 Sara Rodriguez NP [address] [place] [address] [place] [address] Nurse Practitioner Cardiology 09/20/21 Peter Benavides PA-C 175 [facility] [address] [place] [address] Specialist Neurosurgery 12/07/21 Tierra Han NP [address] [place] [address] Cardiology 07/14/24 documented as of this encounter
--- OUTSIDE RECORDS SUMMARY | 2025-07-09 12:21 | XMS_ITS | Encounter Summary ---
Author Organization [facility] Address [address] [place] [address] Care Team Providers Care Interactive Media Specialist Name Role Phone Cheko Hassan MD Unavailable [phone] Mitchell Tapia MD, PHD Unavailable Unava ilRamu Reid MD Unavailable Unavailabl e Sara Rodriguez KNEE BOLTER Unavailable [phone] Peter Benavides PA-C Unavailable [phone] Ronald Desai Primary Care Provider [phone] Tierra Han NP Unavailable [phone] Encounter Details Date Type Department Care Team Description 06/03/2023 Educational Technology Coordinator Report Medical Records [address] [place] [address] Cheko Wiley MD Social History Tobacco Use Types Packs/Day [...] suspected to have Coronavirus/COVID-19? No / Unsure 06/03/2023 9:24 AM EDT documented as of this encounter Plan of Treatment Not on file documented as of this encounter Visit Diagnoses Not on filedocumented in this encounter Care Teams Interactive Media Specialist Relationship Specialty Start Date End Date Ronald Desai [address] [place] [address] PCP - General Internal Medicine 07/16/22 Cheko Hassan MD [address] [place] [address] [place] [address] Mine Laborer Cardiovascular Disease 01/12/21 Micthell Tapia MD, PHD [address] [place] [address] [place] [address] Specialist Neurosurgery 08/17/21 Ramu Solano MD [address] [place] [address] [place] [address] Specialist Internal Medicine 08/23/21 Sara Rodriguez NP [address] [place] [address] [address] [place] [address] Nurse Practitioner Cardiology 09/20/21 Peter Benavides PA-C 175 [facility] [address] [place] [address] Specialist Neurosurgery 12/07/21 Tierra Han NP [address] [place] [address] [address] [place] [address] Cardiology 07/14/24 documented as of this encounter
--- OUTSIDE RECORDS SUMMARY | 2025-07-09 12:21 | XMS_ITS | Encounter Summary ---
Author Organization [facility] Address [address] [place] [address] Care Team Providers Care Field Training Agent Name Role Phone Geo Avendano MD Primary Care Provider Cheko Jaramillo MD Unavailable [phone] Mitchell Tapia MD, PHD Unavailable Unava Ramu Blackwell MD Unavailable Unavailabl e Sara Rodriguez MEDICAL GENETICIST Unavailable [phone] Peter Benavides PA-C Unavailable [phone] Ronald Desai Primary Care Provider [phone] Ronald Desai Primary Care Provider [phone] Tierra Han MEDICAL GENETICIST Unavailable [phone] Encounter Details Date Type Department Care Team Description 02/18/2012 Aircraft Restorer Report Medical Records [address] [place] [address] Kurtis Pantoja MD Social History Tobacco Use [...] filedocumented in this encounter Care Teams Field Training Agent Relationship Specialty Start Date End Date Geo Avendano MD PCP - General 04/08/07 05/31/22 [facility] [address] [place] [address] PCP - General Internal Medicine 06/01/22 07/15/22 [facility] [address] [place] [address] PCP - General Internal Medicine 07/16/22 Cheko Hassan MD [address] [place] [address] [place] [address] Rehabilitation Supervisor Cardiovascular Disease 01/12/21 Mitchell Tapia MD, PHD [address] [place] [address] [place] [address] Specialist Neurosurgery 08/17/21 Ramu Solano MD [address] [place] [address] [place] [address] Specialist Internal Medicine 08/23/21 Sara Rodriguez NP [address] [place] [address] [place] [address] Nurse Practitioner Cardiology 09/20/21 Peter Benavides PA-C 175 [facility] [address] [place] [address] Specialist Neurosurgery 12/07/21 Tierra Han NP [address] [place] [address] Cardiology 07/14/24 documented as of this encounter
--- OUTSIDE RECORDS SUMMARY | 2025-07-09 12:21 | XMS_ITS | Encounter Summary ---
Author Organization [facility] Address [address] [place] [address] Care Team Providers Care Oil Agent Name Role Phone Cheko Hassan MD Unavailable [phone] Mitchell Tapia MD, PHD Unavailable Unava ilRamu Reid MD Unavailable Unavailabl e Sara Rodriguez MAINTENANCE CHIEF Unavailable [phone] Peter Benavides PA-C Unavailable [phone] Ronald Desai Primary Care Provider [phone] Tierra Han NP Unavailable [phone] Reason for Visit * Reason Onset Date Comments APPOINTMENT 05/23/2023 Medication 05/23/2023 Encounter Details Date Type Department Care Team Description 05/23/2023 Telephone Gastroenterology - [address] [place] [address] Kellie Ortiz MD [address] [place] [address] APPOINTMENT; Medication Social History Tobacco Use Types Packs/Day Years [...] suspected to have Coronavirus/COVID-19? No / Unsure 05/21/2023 4:01 PM EDT documented as of this encounter Miscellaneous Notes * Telephone Encounter - Ana Martell M.A. - 05/23/2023 11:09 AM EDT The prep is usually sent out about 2 weeks prior to colonoscopy * Telephone Encounter - Jacob Holly - 05/23/2023 10:46 AM EDT The patient called our Adult Medicine office today to ask if Dr. Ortiz's team has sent over the prescription for miralax/ducolax to the [facility] on [address] yet. He has an appointment coming up with Dr. Ortiz's team on 06/12/2023. His pharmacy says they haven't received anything yet and he is wondering if this is just because it has to be sent closer to the appointment time or not. documented in this encounter Plan of Treatment Not on file documented as of this encounter Visit Diagnoses Not on filedocumented in this encounter Care Teams Oil Agent Relationship Specialty Start Date End Date Ronald Desai [address] [place] [address] PCP - General Internal Medicine 07/16/22 Cheko Hassan MD [address] [place] [address] DRIVE [address] [place] [address] Technical Instructor Cardiovascular Disease 01/12/21 Mitchell Tapia MD, PHD [address] [place] [address] [address] [place] [address] Specialist Neurosurgery 08/17/21 Ramu Solano MD [address] [place] [address] DR[address] [place] [address] Specialist Internal Medicine 08/23/21 Sara Rodriguez NP [address] [place] [address] [address] [place] [address] Nurse Practitioner Cardiology 09/20/21 Peter Benavides PA-C [address] [place] [address] [address] [place] [address] Specialist Neurosurgery 12/07/21 Tierra Han NP 2 [facility] [address] [place] [address] Cardiology 07/14/24 documented as of this encounter
--- OUTSIDE RECORDS SUMMARY | 2025-07-09 12:21 | XMS_ITS | Encounter Summary ---
Author Organization [facility] Address [address] [place] [address] Care Team Providers Care Linux Systems Engineer Name Role Phone Geo Avendano MD Primary Care Provider Cheko Jaramillo MD Unavailable [phone] Mitchell Tapia MD, PHD Unavailable Unava Ramu Blackwell MD Unavailable Unavailabl e Sara Rodriguez INVESTMENT REPRESENTATIVE Unavailable [phone] Peter Benavides PA-C Unavailable [phone] Ronald Desai Primary Care Provider [phone] Ronald Desai Primary Care Provider [phone] Tierra Han INVESTMENT REPRESENTATIVE Unavailable [phone] Reason for Visit * Reason Comments E-prescribe Rx Request Encounter Details Date Type Department Care Team Description 01/30/2021 Refill Adult Medicine [address] [address] Geo Avendano MD E-prescribe Rx Request Social [...] or suspected to have Coronavirus / COVID-19? Unable to assess 01/31/2021 3:33 PM EDT documented as of this encounter Miscellaneous Notes * Telephone Encounter - Lisa Sibley - 02/01/2021 4:36 PM EDT Pt notified. * Telephone Encounter - Geo Avendano - 01/31/2021 4:44 PM EDT It was discontinued previously * Telephone Encounter - Isabel Guzmán M.A. - 01/31/2021 4:04 PM EDT Please review * Telephone Encounter - Christine Parekh - 01/30/2021 3:24 PM EDT Patient would like script to be: E-PRESCRIBED/FAXED TO PHARMACY WHEN WAS THE PATIENT'S LAST APPOINTMENT IN ADULT MEDICINE? 11/07/2020 WHEN WAS THE LAST TIME THE PATIENT SAW THEIR PCP? 07/28/2020 Does patient have an upcoming appointment? Yes 02/01/2021 (THE MEDICATION REQUESTED IS ON THE MED LIST ABOVE) All of the medications requested were on the CURRENT MEDS list Did you check the Pharmacy information above?: YES Patient wants: 30 -day supply Is this a mail order prescription request ? NO If the refill is from a FAXED refill request what is the RX # listed on the fax? N/A Patients current insurance carrier is: Payor: [facility] FFS / Plan: [facility] MEDICARE PREMIUM $10 TITUS / Product Type: MEDICARE [id number] documented in this encounter Plan of Treatment Not on file documented as of this encounter Visit Diagnoses Not on filedocumented in this encounter Care Teams Linux Systems Engineer Relationship Specialty Start Date End Date Geo Avendano MD PCP - General 04/08/07 05/31/22 Ronald Desai [address] [place] [address] PCP - General Internal Medicine 06/01/22 07/15/22 Ronald Desai [address] [place] [address] PCP - General Internal Medicine 07/16/22 Cheko Hassan MD [address] [place] [address] [place] [address] Hand Blocker Cardiovascular Disease 01/12/21 Mitchell Tapia MD, PHD [address] [place] [address] [place] [address] Specialist Neurosurgery 08/17/21 Ramu Solano MD [address] [place] [address] [place] [address] Specialist Internal Medicine 08/23/21 Sara Rodriguez NP 2 [facility] [address] [place] [address] Nurse Practitioner Cardiology 09/20/21 Peter Benavides PA-C 175 [facility] [address] [place] [address] Specialist Neurosurgery 12/07/21 Tierra Han, RAMAN [address] [facility] [address] [place] [address] Cardiology 07/14/24 documented as of this encounter
--- OUTSIDE RECORDS SUMMARY | 2025-07-09 12:21 | XMS_ITS | Encounter Summary ---
Author Organization [facility] Address [address] [place] [address] Care Team Providers Care Director Of Primary Care Name Role Phone Geo Avendano MD Primary Care Provider Cheko Jaramillo MD Unavailable [phone] Mitchell Tapia MD, PHD Unavailable Unava Ramu Blackwell MD Unavailable Unavailabl e Sara Rodriguez CLEANER GREASER Unavailable [phone] Peter Benavides PA-C Unavailable [phone] Ronald Desai Primary Care Provider [phone] Ronald Desai Primary Care Provider [phone] Tierra Han CLEANER GREASER Unavailable [phone] Encounter Details Date Type Department Care Team Description 01/14/2014 Child Care Associate Teacher Report Medical Records [address] [place] [address] Jaime Lopez Social History Tobacco Use Types Packs/Day Years [...] on filedocumented in this encounter Care Teams Director Of Primary Care Relationship Specialty Start Date End Date Geo Avendano MD PCP - General 04/08/07 [facility]31[facility] [address] [place] [address] PCP - General Internal Medicine 06/01/22 07/15/22 [facility] [address] [place] [address] PCP - General Internal Medicine 07/16/22 Cheko Hassan MD [address] [place] [address] [place] [address] Checkerer Hand Cardiovascular Disease 01/12/21 Mtichell Tapia MD, PHD [address] [place] [address] [place] [address] Specialist Neurosurgery 08/17/21 Ramu Solano MD [address] [place] [address] [place] [address]38 Specialist Internal Medicine 08/23/21 Sara Rodriguez NP [address] [place] [address] [place] [address] Nurse Practitioner Cardiology 09/20/21 Peter Benavides PA-C 175 [facility] [address] [place] [address] Specialist Neurosurgery 12/07/21 Tierra Han NP [address] [place] [address] Cardiology 07/14/24 documented as of this encounter
--- OUTSIDE RECORDS SUMMARY | 2025-07-09 12:21 | XMS_ITS | Encounter Summary ---
Author Organization [facility] Address [address] [place] [address] Care Team Providers Care Drawbridge Tender Name Role Phone Geo Avendano MD Primary Care Provider Cheko Jaramillo MD Unavailable [phone] Mitchell Tapia MD, PHD Unavailable Unava Ramu Blackwell MD Unavailable Unavailabl e Sara Rodriguez FORENSIC STRUCTURAL ENGINEER Unavailable [phone] Peter Benavides PA-C Unavailable Ronald Desai Primary Care Provider [phone] Ronald Desai Primary Care Provider [phone] Tierra Han FORENSIC STRUCTURAL ENGINEER Unavailable [phone] Encounter Details Date Type Department Care Team Description 07/02/2012 Applied Research Director Report Medical Records [address] [place] [address] Jaime Lopez Social History Tobacco Use Types [...] on filedocumented in this encounter Care Teams Drawbridge Tender Relationship Specialty Start Date End Date Geo Avendano MD PCP - General 04/08/07 05/31/22 [facility] [address] [place] [address] PCP - General Internal Medicine 06/01/22 07/15/22 [facility] [address] [place] [address] PCP - General Internal Medicine 07/16/22 Cheko Hassan MD [address] [place] [address] [place] [address] Patient Service Specialist Cardiovascular Disease 01/12/21 Mitchell Tapia MD, PHD [address] [place] [address] [place] [address]36 Specialist Neurosurgery 08/17/21 Ramu Solano MD [address] [place] [address] [place] [address] 27836 Specialist Internal Medicine 08/23/21 Sara Rodriguez NP [address] [place] [address] [place] [address] Nurse Practitioner Cardiology 09/20/21 Peter Benavides PA-C 175 [facility] [address] [place] [address] Specialist Neurosurgery 12/07/21 Tierra Han NP [address] [place] [address] Cardiology 07/14/24 documented as of this encounter
--- OUTSIDE RECORDS SUMMARY | 2025-07-09 12:21 | XMS_ITS | Encounter Summary ---
Author Organization [facility] Address [address] [place] [address] Care Team Providers Care Aquatic Ecologist Name Role Phone Geo Avendano MD Primary Care Provider Cheko Jaramillo MD Unavailable [phone] Mitchell Tapia MD, PHD Unavailable Unava ilRamu Reid MD Unavailable Unavailabl e Sara Rodriguez SPRAY II PAINTER Unavailable [phone] Peter Benavides PA-C Unavailable [phone] Ronald Desai Primary Care Provider [phone] Ronald Desai Primary Care Provider [phone] Tierra Han SPRAY II PAINTER Unavailable [phone] Encounter Details Date Type Department Care Team Description 02/27/2021 Plastic Design Applier Report Medical Records [address] [place] [address] Ramu Solano MD Social History Tobacco Use [...] on filedocumented in this encounter Care Teams Aquatic Ecologist Relationship Specialty Start Date End Date Geo Avendano MD PCP - General 04/08/07 05/31/22 Ronald Desai [address] [place] [address] PCP - General Internal Medicine 06/01/22 07/15/22 [facility] [address] [place] [address] PCP - General Internal Medicine 07/16/22 Cheko Hassan MD [address] [place] [address] [place] [address] Recruitment Advertising Manager Cardiovascular Disease 01/12/21 Mitchell Tapia MD, PHD [address] [place] [address] [place] [address] Specialist Neurosurgery 08/17/21 Ramu Solano MD [address] [place] [address] [place] [address]80 Specialist Internal Medicine 08/23/21 Sara Rodriguez NP [address] [place] [address] [place] [address] Nurse Practitioner Cardiology 09/20/21 Peter Benavides PA-C 175 [facility] [address] [place] [address] Specialist Neurosurgery 12/07/21 Tierra Han, RAMAN [address] [place] [address] Cardiology 07/14/24 documented as of this encounter
--- OUTSIDE RECORDS SUMMARY | 2025-07-09 12:21 | XMS_ITS | Encounter Summary ---
Author Organization [facility] Address [address] [place] [address] Care Team Providers Care Rockboard Lather Name Role Phone Geo Avendano MD Primary Care Provider Cheko Jaramillo MD Unavailable [phone] Mitchell Tapia MD, PHD Unavailable Unava Ramu Blackwell MD Unavailable Unavailabl e Sara Rodriguez CURB HOP Unavailable [phone] Peter Benavides PA-C Unavailable [phone] Ronald Desai Primary Care Provider [phone] Ronald Desai Primary Care Provider [phone] Tierra Han CURB HOP Unavailable [phone] Encounter Details Date Type Department Care Team Description 10/17/2021 SCAN Medical Records [address] [place] [address] Abstract, Provider Social History Tobacco Use Types [...] this encounter Results * OUTSIDE LAB (10/17/2021) Provider Abstract LAB documented in this encounter Visit Diagnoses Not on filedocumented in this encounter Care Teams Rockboard Lather Relationship Specialty Start Date End Date Geo Avendano MD PCP - General 04/08/07 05/31/22 Ronald [place] [address] PCP - General Internal Medicine 06/01/22 07/15/22 Ronald [place] [address] PCP - General Internal Medicine 07/16/22 Cheko Hassan MD [address] [place] [address] [place] [address] Derrick Boat Leverman Cardiovascular Disease 01/12/21 Mitchell Tapia MD, PHD [address] [place] [address] [place] [address] Specialist Neurosurgery 08/17/21 Ramu Solano MD [address] [place] [address] [place] [address] Specialist Internal Medicine 08/23/21 Sara Rodriguez, CURB HOP [facility] [address] [place] [address] Nurse Practitioner Cardiology 09/20/21 Peter Benavides PA-C 175 [facility] [address] [place] [address] Specialist Neurosurgery 12/07/21 Tierra Han, RAMAN [address] [facility] [address] [place] [address] Cardiology 07/14/24 documented as of this encounter
--- OUTSIDE RECORDS SUMMARY | 2025-07-09 12:21 | XMS_ITS | Encounter Summary ---
Author Organization [facility] Address [address] [place] [address] Care Team Providers Care Foundation Stage Teacher Name Role Phone Geo Avendano MD Primary Care Provider Cheko Jaramillo MD Unavailable [phone] Mitchell Tapia MD, PHD Unavailable Unava Ramu Blackwell MD Unavailable Unavailabl e Sara Rodriguez COLLECTION DEVELOPMENT LIBRARIAN Unavailable [phone] Peter Benavides PA-C Unavailable [phone] Ronald Desai Primary Care Provider [phone] Ronald Desai Primary Care Provider [phone] Tierra Han COLLECTION DEVELOPMENT LIBRARIAN Unavailable [phone] Encounter Details Date Type Department Care Team Description 12/28/2020 Old Medical Records Medical Records [address] [place] [address] Abstract, Provider Social History Tobacco Use Types [...] have Coronavirus / COVID-19? No / Unsure 12/21/2020 1:10 PM EST documented as of this encounter Plan of Treatment Not on file documented as of this encounter Visit Diagnoses Not on filedocumented in this encounter Care Teams Foundation Stage Teacher Relationship Specialty Start Date End Date Geo Avendano MD PCP - General 04/08/07 05/31/22 Ronald Desai [address] [place] [address] 55952 PCP - General Internal Medicine 06/01/22 07/15/22 Ronald Desai [address] [place] [address] 05062 PCP - General Internal Medicine 07/16/22 Cheko Hassan MD [address] [place] [address] [place] [address] Junior High Math Teacher Cardiovascular Disease 01/12/21 Mitchell Tapia MD, PHD [address] [place] [address] [place] [address]30 Specialist Neurosurgery 08/17/21 Ramu Solano MD [address] [place] [address] [place] [address] 87764 Specialist Internal Medicine 08/23/21 Sara Rodriguez NP [address] [place] [address] [place] [address] 34929 Nurse Practitioner Cardiology 09/20/21 Peter Benavides PA-C [address] [place] [address] [address] [place] [address] Specialist Neurosurgery 12/07/21 Tierra Han NP [address] [place] [address]26 Cardiology 07/14/24 documented as of this encounter
--- OUTSIDE RECORDS SUMMARY | 2025-07-09 12:22 | XMS_ITS | Encounter Summary ---
Author Organization [facility] Address [address] [place] [address] Care Team Providers Care Mercerizer Machine Operator Name Role Phone Geo Avendano MD Primary Care Provider Cheko Jaramillo MD Unavailable [phone] Mitchell Tapia MD, PHD Unavailable Unava Ramu Blackwell MD Unavailable Unavailabl e Sara Rodriguez AGILE TEST LEAD Unavailable [phone] Peter Benavides PA-C Unavailable [phone] Ronald Desai Primary Care Provider [phone] Ronald Desai Primary Care Provider [phone] Tierra Han AGILE TEST LEAD Unavailable [phone] Encounter Details Date Type Department Care Team Description 09/03/2019 Hospital Medical Records [address] [place] [address] Mitchell Tapia MD, PHD Social History Tobacco [...] on filedocumented in this encounter Care Teams Mercerizer Machine Operator Relationship Specialty Start Date End Date Geo Avendano MD PCP - General 04/08/07 05/31/22 Ronald Desai [address] [place] [address]361 PCP - General Internal Medicine 06/01/22 07/15/22 Ronald Desai [address] [place] [address] 62448 PCP - General Internal Medicine 07/16/22 Cheko Hassan MD [address] [place] [address] [place] [address] Nanotechnologist Cardiovascular Disease 01/12/21 Mitchell Tapia MD, PHD [address] [place] [address] [place] [address] Specialist Neurosurgery 08/17/21 Ramu Solano MD [address] [place] [address] [place] [address] 31196 Specialist Internal Medicine 08/23/21 Sara Rodriguez NP [address] [place] [address] [place] [address]1568 Nurse Practitioner Cardiology 09/20/21 Peter Benavides PA-C 175 [facility] [address] [place] [address] Specialist Neurosurgery 12/07/21 Tierra Han, RAMAN [address] [place] [address]59 Cardiology 07/14/24 documented as of this encounter
--- OUTSIDE RECORDS SUMMARY | 2025-07-09 12:22 | XMS_ITS | Encounter Summary ---
Author Organization [facility] Address [address] [place] [address] Care Team Providers Care Tin Recovery Worker Name Role Phone Geo Avendano MD Primary Care Provider Cheko Jaramillo MD Unavailable [phone] Mitchell Tapia MD, PHD Unavailable Unava Ramu Blackwell MD Unavailable Unavailabl e Sara Rodriguez NP Unavailable [phone] Peter Benavides PA-C Unavailable [phone] Ronald Desai Primary Care Provider [phone] Ronald Desai Primary Care Provider [phone] Tierra Han DIRECTOR EAST COAST SALES Unavailable [phone] Encounter Details Date Type Department Care Team Description 11/06/2016 Desk Lieutenant Report Medical Records [address] [place] [address] Valdo Reardon Social History Tobacco Use Types [...] on filedocumented in this encounter Care Teams Tin Recovery Worker Relationship Specialty Start Date End Date Geo Avendano MD PCP - General 04/08/07 05[facility]31[facility]22 [facility] [address] [place] [address] PCP - General Internal Medicine 06/01/22 07/15/22 [facility] [address] [place] [address] 24980 PCP - General Internal Medicine 07/16/22 Cheko Hassan MD [address] [place] [address] [place] [address]53 Machine Builder Cardiovascular Disease 01/12/21 Mitchell Tapia MD, PHD [address] [place] [address] [address] [place] [address] Specialist Neurosurgery 08/17/21 Ramu Solano MD [address] [place] [address] [place] [address]94 Specialist Internal Medicine 08/23/21 Sara Rodriguez NP [address] [place] [address] [address] [place] [address] Nurse Practitioner Cardiology 09/20/21 Peter Benavides PA-C 175 [facility] [address] [place] [address] Specialist Neurosurgery 12/07/21 Tierra Han NP [address] [place] [address] Cardiology 07/14/24 documented as of this encounter
--- OUTSIDE RECORDS SUMMARY | 2025-07-09 12:22 | XMS_ITS | Encounter Summary ---
Author Organization [facility] Address [address] [place] [address] Care Team Providers Care Trimmer Buffing Wheel Name Role Phone Geo Avendano MD Primary Care Provider Cheko Jaramillo MD Unavailable [phone] Mitchell Tapia MD, PHD Unavailable Unava Ramu Blackwell MD Unavailable Unavailabl e Sara Rodriguez CONTINUOUS IMPROVEMENT BLACK BELT Unavailable Peter Benavides PA-C Unavailable [phone] Ronald Desai Primary Care Provider [phone] Ronald Desai Primary Care Provider [phone] Tierra Han CONTINUOUS IMPROVEMENT BLACK BELT Unavailable [phone] Encounter Details Date Type Department Care Team Description 09/20/2020 Wireless Team Member Report Medical Records [address] [place] [address] Geo Avendano MD Social History Tobacco Use [...] have Coronavirus / COVID-19? No / Unsure 09/23/2020 1:10 PM EST documented as of this encounter Plan of Treatment Not on file documented as of this encounter Visit Diagnoses Not on filedocumented in this encounter Care Teams Trimmer Buffing Wheel Relationship Specialty Start Date End Date Geo Avendano MD PCP - General 04/08/07 05/31/22 Ronald Desai [address] [place] [address] 61629 PCP - General Internal Medicine 06/01/22 07/15/22 Ronald Desai [address] [place] [address] 02078 PCP - General Internal Medicine 07/16/22 Cheko Hassan MD [address] [place] [address] [place] [address] [facility] Cardiovascular Disease 01/12/21 Mitchell Tapia MD, PHD [address] [place] [address] [place] [address]108 Specialist Neurosurgery 08/17/21 Ramu Solano MD [address] [place] [address] [place] [address] 37134 Specialist Internal Medicine 08/23/21 Sara Rodriguez NP [address] [place] [address] [place] [address] 41334 Nurse Practitioner Cardiology 09/20/21 Peter Benavides PA-C [address] [place] [address] Specialist Neurosurgery 12/07/21 Tierra Hna NP [address] [place] [address]646 Cardiology 07/14/24 documented as of this encounter
--- OUTSIDE RECORDS SUMMARY | 2025-07-09 12:22 | XMS_ITS | Encounter Summary ---
Author Organization [facility] Address [address] [place] [address] Care Team Providers Care Field Radio Technician Name Role Phone Geo Avendano MD Primary Care Provider Cheko Jaramillo MD Unavailable [phone] Mitchell Tapia MD, PHD Unavailable Unava Ramu Blackwell MD Unavailable Unavailabl e Sara Rodriguez PRESS SERVICE READER Unavailable [phone] Peter Benavides PA-C Unavailable [phone] Ronald Desai Primary Care Provider [phone] Ronald Desai Primary Care Provider [phone] Tierra Han PRESS SERVICE READER Unavailable [phone] Encounter Details Date Type Department Care Team Description 07/22/2020 Property And Casualty Insurance Agent Report Medical Records [address] [place] [address] [facility] Social History Tobacco Use Types Packs/Day Years [...] have Coronavirus / COVID-19? No / Unsure 07/13/2020 8:48 AM EDT documented as of this encounter Plan of Treatment Not on file documented as of this encounter Visit Diagnoses Not on filedocumented in this encounter Care Teams Field Radio Technician Relationship Specialty Start Date End Date Geo Avendano MD PCP - General 04/08/07 05/31/22 Ronald Desai [address] [place] [address]39 PCP - General Internal Medicine 06/01/22 07/15/22 Ronald Desai [address] [place] [address] 27293 PCP - General Internal Medicine 07/16/22 Cheko Hassan MD [address] [place] [address] [place] [address]45 Fire Prevention Specialist Cardiovascular Disease 01/12/21 Mitchell Tapia MD, PHD [address] [place] [address] [place] [address] 05921 Specialist Neurosurgery 08/17/21 Ramu Solano MD [address] [place] [address] [place] [address] 74200 Specialist Internal Medicine 08/23/21 Sara Rodriguez NP [address] [place] [address] [place] [address] 57372 Nurse Practitioner Cardiology 09/20/21 Peter Benavides PA-C [address] [place] [address] Specialist Neurosurgery 12/07/21 Tierra Han NP [address] [place] [address]39 Cardiology 07/14/24 documented as of this encounter
--- OUTSIDE RECORDS SUMMARY | 2025-07-09 12:22 | XMS_ITS | Encounter Summary ---
Author Organization [facility] Address [address] [place] [address] Care Team Providers Care Waist Cutter Name Role Phone Geo Avendano MD Primary Care Provider Cheko Jaramillo MD Unavailable [phone] Mitchell Tapia MD, PHD Unavailable Unava Ramu Blackwell MD Unavailable Unavailabl e Sara Rodriguez WIRE RIGGER Unavailable [phone] Peter Benavides PA-C Unavailable [phone] Ronald Desai Primary Care Provider [phone] Ronald Desai Primary Care Provider [phone] Tierra Han WIRE RIGGER Unavailable [phone] Encounter Details Date Type Department Care Team Description 09/16/2019 Orders Only Medical Records [address] [place] [address] Geo Avendano MD Social History Tobacco Use [...] Name Priority Date/Time Associated Diagnosis Comments OUTSIDE VASCULAR STUDY Routine 09/07/2019 documented in this encounter Results * OUTSIDE VASCULAR STUDY (09/07/2019) Geo Avendano MD CARDIOLOGY documented in this encounter Visit Diagnoses Not on filedocumented in this encounter Care Teams Waist Cutter Relationship Specialty Start Date End Date Geo Avendano MD PCP - General 04/08/07 05/31/22 Ronald Desai [address] [place] [address] 07014 PCP - General Internal Medicine 06/01/22 07/15/22 Ronald Desai [address] [place] [address] 91043 PCP - General Internal Medicine 07/16/22 Cheko Hassan MD [address] [place] [address] [place] [address] 94819 Harness Maker Cardiovascular Disease 01/12/21 Mitchell Tapia MD, PHD [address] [place] [address] [place] [address] 62453 Specialist Neurosurgery 08/17/21 Ramu Solano MD [address] [place] [address] [place] [address] 50116 Specialist Internal Medicine 08/23/21 Sara Rodriguez NP [address] [place] [address] [place] [address] 95043 Nurse Practitioner Cardiology 09/20/21 Peter Benavides PA-C 175 [facility] [address] [place] [address] Specialist Neurosurgery 12/07/21 Tierra Han NP [address] [place] [address]40 Cardiology 07/14/24 documented as of this encounter
--- OUTSIDE RECORDS SUMMARY | 2025-07-09 12:22 | XMS_ITS | Encounter Summary ---
Author Organization [facility] Address [address] [place] [address] Care Team Providers Care Operations And Intelligence Assistant Name Role Phone Cheko Hassan MD Unavailable [phone] Mitchell Tapia MD, PHD Unavailable Unava ilable Ramu Solano MD Unavailable Unavailabl e Sara Rodriguez MILLINERY WORKER Unavailable [phone] Peter Benavides PA-C Unavailable [phone] Ronald Desai Primary Care Provider [phone] Tierra Han NP Unavailable [phone] Encounter Details Date Type Department Care Team Description 09/12/2022 Linux Consultant Report Medical Records [address] [place] [address]27 Rajeev Vee MD Social History Tobacco Use [...] suspected to have Coronavirus/COVID-19? No / Unsure 08/28/2022 1:03 PM EST documented as of this encounter Plan of Treatment Not on file documented as of this encounter Visit Diagnoses Not on filedocumented in this encounter Care Teams Operations And Intelligence Assistant Relationship Specialty Start Date End Date Ronald Desai [address] [place] [address] PCP - General Internal Medicine 07/16/22 Cheko Hassan MD [address] [place] [address] [place] [address] Store Operations Manager Cardiovascular Disease 01/12/21 Mitchell Tapia MD, PHD [address] [place] [address] [place] [address] 98278 Specialist Neurosurgery 08/17/21 Ramu Solano MD [address] [place] [address] [place] [address]407 Specialist Internal Medicine 08/23/21 Sara Rodriguez NP [address] [place] [address] [address] [place] [address] Nurse Practitioner Cardiology 09/20/21 Peter Benavides PA-C 175 [facility] [address] [place] [address] Specialist Neurosurgery 12/07/21 Tierra Han NP [address] [place] [address] [address] [place] [address] Cardiology 07/14/24 documented as of this encounter
--- OUTSIDE RECORDS SUMMARY | 2025-07-09 12:22 | XMS_ITS | Encounter Summary ---
Author Organization [facility] Address [address] [place] [address] Care Team Providers Care Commissioned Security Officer Name Role Phone Cheko Hassan MD Unavailable [phone] Mitchell Tapia MD, PHD Unavailable Unava ilRamu Reid MD Unavailable Unavailabl e Sara Rodriguez MULTIFOLD OPERATOR Unavailable [phone] Peter Benavides PA-C Unavailable [phone] Ronald Desai Primary Care Provider [phone] Tierra Han NP Unavailable [phone] Encounter Details Date Type Department Care Team Description 11/02/2022 SCAN [facility] 175 [facility] [address] [place] [address] Valdo Middleton MD 175 [facility] [address] [place], [place] [id number] Social History Tobacco Use Types Packs/Day Years [...] suspected to have Coronavirus/COVID-19? No / Unsure 10/31/2022 8:40 AM EST documented as of this encounter Plan of Treatment Not on file documented as of this encounter Visit Diagnoses Not on filedocumented in this encounter Care Teams Commissioned Security Officer Relationship Specialty Start Date End Date Ronald Desai [address] [place] [address] 41852 PCP - General Internal Medicine 07/16/22 Cheko Hassan MD [address] [place] [address] [address] [place] [address] Data Security Coordinator Cardiovascular Disease 01/12/21 Mitchell Tapia MD, PHD [address] [place] [address] [place] [address]65 Specialist Neurosurgery 08/17/21 Ramu Solano MD [address] [place] [address] [address] [place] [address] Specialist Internal Medicine 08/23/21 Sara Rodriguez NP [address] [place] [address] [place] [address] Nurse Practitioner Cardiology 09/20/21 Peter Benavides PA-C 175 [facility] [address] [place] [address] Specialist Neurosurgery 12/07/21 Tierra Han NP [address] [place] [address] [address] [place] [address] Cardiology 07/14/24 documented as of this encounter
--- OUTSIDE RECORDS SUMMARY | 2025-07-09 12:22 | XMS_ITS | Encounter Summary ---
Author Organization [facility] Address [address] [place] [address] Care Team Providers Care Shoe Stamper Name Role Phone Cheko Hassan MD Unavailable [phone] Mitchell Tapia MD, PHD Unavailable Unava ilRamu Reid MD Unavailable Unavailabl e Sara Rodriguez GLUING MACHINE OPERATOR ELECTRONIC Unavailable [phone] Peter Benavides PA-C Unavailable [phone] Ronald Desai Primary Care Provider [phone] Tierra Han NP Unavailable [phone] Reason for Visit * Reason Onset Date Comments Prior Authorization 07/18/2022 Encounter Details Date Type Department Care Team Description 07/18/2022 Telephone Adult Medicine [address] [address] Ronald Desai [address] [place] [address] [id number] Prior Authorization Social History Tobacco Use Types Packs/Day Years [...] suspected to have Coronavirus/COVID-19? No / Unsure 07/19/2022 9:20 AM EDT documented as of this encounter Miscellaneous Notes * Telephone Encounter - Nikky Bob - 07/19/2022 10:03 AM EDT Prior authorization approved Approval dates 07/18/2022 - Faxed to pharmacy * Telephone Encounter - Nikky Bob - 07/18/2022 12:42 PM EDT Completed on cover my meds Dx - chronic pain Initial start * Telephone Encounter - Marielena Rogers - 07/18/2022 12:23 PM EDT Prior Authorization for Medication-do not complete and send this encounter unless you have the fax from the pharmacy. Is this a Cover My Meds request: Yes -- Ferro Code [id number] Name of Medication lidocaine (LIDODERM) 5 % Dose of Medication What is the RX # from the faxed refill? How does patient take this med? Route: Place 1 Patch onto the skin every 24 hours. Apply for no more than 12 hours in any 24 hour period. - Transdermal What Pharmacy did the fax come from: [facility] Pharmacy fax #: [phone] [employer] Information from fax: What Prescription Plan does the patient have? BIN/PCN if applicable: Cardholder ID: Person Code: Relationship Code: Help desk phone: documented in this encounter Plan of Treatment Not on file documented as of this encounter Visit Diagnoses Not on filedocumented in this encounter Care Teams Shoe Stamper Relationship Specialty Start Date End Date Ronald Desai [address] [place] [address]35 PCP - General Internal Medicine 07/16/22 Cheko Hassan MD [address] [place] [address] [place] [address] Correctional Case Manager Cardiovascular Disease 01/12/21 Mitchell Tapia MD, PHD [address] [place] [address] [place] [address]32 Specialist Neurosurgery 08/17/21 Ramu Solano MD [address] [place] [address] [place] [address]45 Specialist Internal Medicine 08/23/21 Sara Rodriguez NP [address] [place] [address] [place] [address]296 Nurse Practitioner Cardiology 09/20/21 Peter Benavides PA-C 175 [facility] [address] [place] [address] Specialist Neurosurgery 12/07/21 Tierra Han NP [address] [place] [address] [address] [place] [address] Cardiology 07/14/24 documented as of this encounter
--- OUTSIDE RECORDS SUMMARY | 2025-07-09 12:22 | XMS_ITS | Encounter Summary ---
Author Organization [facility] Address [address] [place] [address] Care Team Providers Care Tractor Operator Helper Name Role Phone Cheko Hassan MD Unavailable Mitchell Tapia MD, PHD Unavailable Unava ilRamu Reid MD Unavailable Unavailabl e Sara Rodriguez DIRECTOR OF SPECIAL EDUCATION Unavailable [phone] Peter Benavides PA-C Unavailable [phone] Ronald Desai Primary Care Provider [phone] Tierra Han NP Unavailable [phone] Reason for Visit * Reason Onset Date Comments Medication 09/20/2022 Encounter Details Date Type Department Care Team Description 09/20/2022 Refill Gastroenterology - [place] [address] [facility] [address] [place] [address] Shekhar Bonner MD [address] [facility] [address] [place] [address] Medication Social History Tobacco Use Types Packs/Day [...] on filedocumented in this encounter Care Teams Tractor Operator Helper Relationship Specialty Start Date End Date Ronald Desai [address] [place] [address] PCP - General Internal Medicine 07/16/22 Cheko Hassan MD [address] [place] [address] [place] [address] 8[address] Costume Draper Cardiovascular Disease 01/12/21 Mitchell Tapia MD, PHD [address] [place] [address] [place] [address] 26973 Specialist Neurosurgery 08/17/21 Ramu Solano MD [address] [place] [address] [place] [address]851 Specialist Internal Medicine 08/23/21 Sara Rodriguez NP [address] [place] [address] [place] [address] Nurse Practitioner Cardiology 09/20/21 Peter Benavides PA-C 175 [facility] [address] [place] [address] Specialist Neurosurgery 12/07/21 Tierra Han NP [address] [place] [address] [place] [id number] Cardiology 07/14/24 documented as of this encounter
--- OUTSIDE RECORDS SUMMARY | 2025-07-09 12:22 | XMS_ITS | Encounter Summary ---
Author Organization [facility] Address [address] [place] [address] Care Team Providers Care Tray Delivery Aide Name Role Phone Geo Avendano MD Primary Care Provider Cheko Jaramillo MD Unavailable [phone] Mitchell Tapia MD, PHD Unavailable Unava Ramu Blackwell MD Unavailable Unavailabl e Sara Rodriguez FINANCIAL REPORT SERVICE SALES AGENT Unavailable [phone] Peter Benavides PA-C Unavailable [phone] Ronald Desai Primary Care Provider [phone] Ronald Desai Primary Care Provider [phone] Tierra Han FINANCIAL REPORT SERVICE SALES AGENT Unavailable [phone] Encounter Details Date Type Department Care Team Description 02/19/2011 Trades Helper Report Medical Records [address] [place] [address] William Beck MD Social History Tobacco Use Types Packs/Day [...] on filedocumented in this encounter Care Teams Tray Delivery Aide Relationship Specialty Start Date End Date Geo Avendano MD PCP - General 04/08/07 [facility]31[facility] [address] [place] [address] PCP - General Internal Medicine 06/01/22 07/15/22 [facility] [address] [place] [address] PCP - General Internal Medicine 07/16/22 Cheko Hassan MD [address] [place] [address] [place] [address] Staff Counselor Cardiovascular Disease 01/12/21 Mitchell Tapia MD, PHD [address] [place] [address] [place] [address] Specialist Neurosurgery 08/17/21 Ramu Solano MD [address] [place] [address] [place] [address] Specialist Internal Medicine 08/23/21 Sara Rodriguez NP [address] [place] [address] [place] [address] Nurse Practitioner Cardiology 09/20/21 Peter Benavides PA-C 175 [facility] [address] [place] [address] Specialist Neurosurgery 12/07/21 Tierra Han NP [address] [place] [address] Cardiology 07/14/24 documented as of this encounter
--- OUTSIDE RECORDS SUMMARY | 2025-07-09 12:22 | XMS_ITS | Encounter Summary ---
Author Organization [facility] Address [address] [place] [address] Care Team Providers Care Dray Driver Name Role Phone Cheko Hassan MD Unavailable Mitchell Tapia MD, PHD Unavailable Unava Ramu Blackwell MD Unavailable Unavailabl e Sara Rodriguez NP Unavailable [phone] Peter Benavides PA-C Unavailable Ronald Desai Primary Care Provider [phone] Tierra Han NP Unavailable [phone] Reason for Visit * Reason Onset Date Comments TEST RESULTS 06/24/2024 Encounter Details Date Type Department Care Team Description 06/24/2024 Telephone Adult Medicine [address] [address] Ronald Desai [address] [place] [address] [id number] TEST RESULTS Social History Tobacco Use Types Packs/Day Years [...] encounter Miscellaneous Notes * Telephone Encounter - Mary Jo Rand M.A. - 06/24/2024 12:57 PM EDT Spoke t o patient and made a follow up appt in aug per request by pt * Telephone Encounter - Mary Jo Rand M.A. - 06/24/2024 11:51 AM EDT Could you please review theultrsound results that Tai ordered? They are in the chart. Thank you! * Telephone Encounter - Mahogany Turner - 06/24/2024 9:11 AM EDT Patient is requesting a provider call back to discuss the results of the test listed below. Inform patient: ANY URGENT OR ABNORMAL RESULTS WIILL RESULT IN A CALL BACK TO THE PATIENT YULIYA. Type of test: :UltraSound Date test was performed: 06/08/24 Where was the test performed: [address] [place] [address] Who ordered this test?: Tai Lambert Is the doctor here today?: YES Can the message wait until the doctor returns?: YES IF PATIENT'S PCP IS NOT IN INSTRUCT PATIENT THAT THEY WILL RECEIVE A CALL BACK WHEN THE PCP IS IN THE OFFICE NEXT. documented in this encounter Plan of Treatment Not on file documented as of this encounter Visit Diagnoses Not on filedocumented in this encounter Care Teams Dray Driver Relationship Specialty Start Date End Date Ronald DesaiBreann [address] [place] [address] PCP - General Internal Medicine 07/16/22 Cheko Hassan MD [address] [place] [address] General Scrap Worker Cardiovascular Disease 01/12/21 Mitchell Tapia MD, PHD [address] [place] [address] [address] [place] [address] Specialist Neurosurgery 08/17/21 Ramu Solano MD [address] [place] [address] [address] [place] [address] Specialist Internal Medicine 08/23/21 Sara Rodriguez NP [address] [place] [address] [place] [address] Nurse Practitioner Cardiology 09/20/21 Peter Benavides PA-C 175 [facility] [address] [place] [address] Specialist Neurosurgery 12/07/21 Tierra Han NP [address] [place] [address] [address] [place] [address] Cardiology 07/14/24 documented as of this encounter
--- OUTSIDE RECORDS SUMMARY | 2025-07-09 12:22 | XMS_ITS | Encounter Summary ---
Author Organization [facility] Address [address] [place] [address] Care Team Providers Care Vice President Compliance Name Role Phone Geo Avendano MD Primary Care Provider Cheko Jaramillo MD Unavailable [phone] Mitchell Tapia MD, PHD Unavailable Unava Ramu Blackwell MD Unavailable Unavailabl e Sara Rodriguez REGIONAL DEDICATED TRUCK DRIVER Unavailable [phone] Peter Benavides PA-C Unavailable [phone] Ronald Desai Primary Care Provider [phone] Ronald Desai Primary Care Provider [phone] Tierra Han REGIONAL DEDICATED TRUCK DRIVER Unavailable [phone] Reason for Visit * Reason Comments E-prescribe Rx Request Encounter Details Date Type Department Care Team Description 04/15/2020 Refill Adult Medicine [address] [address] Geo Avendano MD E-prescribe Rx Request Social [...] Telephone Encounter - Dorothy Canchola M.A. - 04/18/2020 3:42 PM EDT Lab Results Component Value Date NA 140 06/09/2019 K 4.4 06/09/2019 CO2 29 06/09/2019 CL 103 06/09/2019 BUN 14 06/09/2019 CREAT 1.46 06/09/2019 GLU 86 06/09/2019 CA 9.3 06/09/2019 GFR 49 06/09/2019 LRF 02/01/20 no refills. * Telephone Encounter - Lizy Choe - 04/18/2020 10:07 AM EDT Patient would like script to be: E-PRESCRIBED/FAXED TO PHARMACY WHEN WAS THE PATIENT'S LAST APPOINTMENT IN ADULT MEDICINE? 12/21/19 WHEN WAS THE LAST TIME THE PATIENT SAW THEIR PCP? 09/07/19 Does patient have an upcoming appointment? Yes 04/20/2020 (THE MEDICATION REQUESTED IS ON THE MED [...] N/A Patients current insurance carrier is: Payor: PENDING SALE TO [facility] FFS / Plan: [facility] MEDICARE PREMIUM $10 [place] / Product Type: MEDICARE [id number] documented in this encounter Plan of Treatment Not on file documented as of this encounter Visit Diagnoses Not on filedocumented in this encounter Care Teams Vice President Compliance Relationship Specialty Start Date End Date Geo Avendano MD PCP - General 04/08/07 05/31/22 Ronald Desai [address] [place] [address] PCP - General Internal Medicine 06/01/22 07/15/22 Ronald Desai [address] [place] [address] PCP - General Internal Medicine 07/16/22 Cheko Hassan MD [address] [place] [address] [place] [address] Telegraph Lineman Cardiovascular Disease 01/12/21 Mitchell Tapia MD, PHD [address] [place] [address] [place] [address] Specialist Neurosurgery 08/17/21 Ramu Solano MD [address] [place] [address] [place] [address] Specialist Internal Medicine 08/23/21 Sara Rodriguez NP [address] [place] [address] [place] [address] Nurse Practitioner Cardiology 09/20/21 Peter Benavides PA-C 175 [facility] [address] [place] [address] Specialist Neurosurgery 12/07/21 Tierra Han, RAMAN [address] [place] [address] Cardiology 07/14/24 documented as of this encounter
--- OUTSIDE RECORDS SUMMARY | 2025-07-09 12:22 | XMS_ITS | Encounter Summary ---
Author Organization [facility] Address [address] [place] [address] Care Team Providers Care Labor Economics Teacher Name Role Phone Cheko Hassan MD Unavailable [phone] Mitchell Tapia MD, PHD Unavailable Unava Ramu Blackwell MD Unavailable Unavailabl Sara Gonzales SOD FARMER Unavailable [phone] Peter Benavides PA-C Unavailable [phone] Ronald Desai Primary Care Provider [phone] Tierra Han NP Unavailable [phone] Reason for Visit * Reason Comments E-prescribe Rx Request Encounter Details Date Type Department Care Team Description 05/21/2024 Refill Pulmonology - [place] [address] [address] Suzie Bates APRN 175 [facility] [address] [place] [address] E-prescribe Rx Request Social History Tobacco Use [...] encounter Miscellaneous Notes * Telephone Encounter - Trudi Elizabeth - 05/21/2024 8:15 AM EDT Jacqui: 05/13/2024 Nov: 08/13/2024 * Telephone Encounter - Eliezer Hudson - 05/21/2024 8:15 AM EDT NOV- 08/13/24 JACQUI- 05/13/24 documented in this encounter Plan of Treatment Not on file documented as of this encounter Visit Diagnoses Diagnosis Mild persistent asthma with acute exacerbation Unspecified asthma, with exacerbation documented in this encounter Care Teams Labor Economics Teacher Relationship Specialty Start Date End Date Ronald [place] [address] PCP - General Internal Medicine 07/16/22 Cheko Hassan MD [address] [place] [address] [place] [address] Equipment Installation Professional Cardiovascular Disease 01/12/21 Mitchell Tapia MD, PHD [address] [place] [address] [place] [address] Specialist Neurosurgery 08/17/21 Ramu Solano MD [address] [place] [address] [place] [address] Specialist Internal Medicine 08/23/21 Sara Rodriguez, RAMAN [address] [place] [address] Nurse Practitioner Cardiology 09/20/21 Peter Benavides PA-C 175 [facility] [address] [place] [address] Specialist Neurosurgery 12/07/21 Tierra Han, RAMAN [address] [facility] [address] [place] [address] Cardiology 07/14/24 documented as of this encounter
--- OUTSIDE RECORDS SUMMARY | 2025-07-09 12:22 | XMS_ITS | Encounter Summary ---
Author Organization [facility] Address [address] [place] [address] Care Team Providers Care Pharm Tech Name Role Phone Cheko Hassan MD Unavailable [phone] Mitchell Tapia MD, PHD Unavailable Unava ilable Ramu Solano MD Unavailable Unavailabl e Sara Rodriguez CORPORATE CLAIMS EXAMINER Unavailable [phone] Peter Benavides PA-C Unavailable Ronald Desai Primary Care Provider [phone] Tierra Han NP Unavailable [phone] Encounter Details Date Type Department Care Team Description 08/10/2022 Journeyman Meat Cutter Report Medical Records [address] [place] [address] Rajeev Vee MD Social History Tobacco Use [...] on filedocumented in this encounter Care Teams Pharm Tech Relationship Specialty Start Date End Date Ronald Desai [address] [place] [address] PCP - General Internal Medicine 07/16/22 Cheko Hassan MD [address] [place] [address] [place] [address] Correctional Captain Cardiovascular Disease 01/12/21 Mitchell Tapia MD, PHD [address] [place] [address] [place] [address] Specialist Neurosurgery 08/17/21 Ramu Solano MD [address] [place] [address] [place] [address] Specialist Internal Medicine 08/23/21 Sara Rodriguez NP [address] [place] [address] [address] [place] [address] Nurse Practitioner Cardiology 09/20/21 Peter Benavides PA-C 175 [facility] [address] [place] [address] Specialist Neurosurgery 12/07/21 Tierra Han NP [address] [place] [address] [address] [place] [address] Cardiology 07/14/24 documented as of this encounter
--- OUTSIDE RECORDS SUMMARY | 2025-07-09 12:22 | XMS_ITS | Encounter Summary ---
Author Organization [facility] Address [address] [place] [address] Care Team Providers Care Boat Joiner Name Role Phone Cheko Hassan MD Unavailable [phone] Mitchell Tapia MD, PHD Unavailable Unava ilRamu Reid MD Unavailable Unavailabl e Sara Rodriguez NP Unavailable [phone] Peter Benavides PA-C Unavailable [phone] Ronald Desai Primary Care Provider [phone] Tierra Han NP Unavailable [phone] Encounter Details Date Type Department Care Team Description 09/02/2022 Hospital Medical Records [address] [place] [address] Social History Tobacco Use Types Packs/Day Years [...] Name Priority Date/Time Associated Diagnosis Comments OUTSIDE EKG Routine 09/02/2022 OUTSIDE EKG Routine 09/02/2022 OUTSIDE PLAIN FILM Routine 09/02/2022 OUTSIDE LAB Routine 09/02/2022 documented in this encounter Results * OUTSIDE PLAIN FILM (09/02/2022) Provider Abstract RADIOLOGY * OUTSIDE LAB (09/02/2022) Provider Abstract LAB * OUTSIDE EKG (09/02/2022) Provider Abstract CARDIOLOGY * OUTSIDE EKG (09/02/2022) Provider Abstract CARDIOLOGY documented in this encounter Visit Diagnoses Not on filedocumented in this encounter Care Teams Boat Joiner Relationship Specialty Start Date End Date Ronald Desai [address] [place] [address] PCP - General Internal Medicine 07/16/22 Cheko Hassan MD [address] [place] [address] [place] [address] Executive Director Sheltered Workshop Cardiovascular Disease 01/12/21 Mitchell Tapia MD, PHD [address] [place] [address] [place] [address] Specialist Neurosurgery 08/17/21 Ramu Solano MD [address] [place] [address] [place] [address] Specialist Internal Medicine 08/23/21 Sara Rodriguez, RAMAN [address] [facility] [address] [place] [address] Nurse Practitioner Cardiology 09/20/21 Peter Benavides PA-C 175 [facility] [address] [place] [address] Specialist Neurosurgery 12/07/21 Tierra Han, RAMAN [address] [facility] [address] [place] [address] Cardiology 07/14/24 documented as of this encounter
--- OUTSIDE RECORDS SUMMARY | 2025-07-09 12:22 | XMS_ITS | Encounter Summary ---
Author Organization [facility] Address [address] [place] [address] Care Team Providers Care Commissioner Of Internal Revenue Name Role Phone Geo Avendano MD Primary Care Provider Cheko Jaramillo MD Unavailable [phone] Mitchell Tapia MD, PHD Unavailable Unava Ramu Blackwell MD Unavailable Unavailabl e Sara Rodriguez ENAMEL BURNER Unavailable [phone] Peter Benavides PA-C Unavailable [phone] Ronald Desai Primary Care Provider [phone] Ronald Desai Primary Care Provider [phone] iTerra Han ENAMEL BURNER Unavailable [phone] Reason for Visit * Reason Comments E-prescribe Rx Request Encounter Details Date Type Department Care Team Description 11/27/2019 Refill Gastroenterology [address] [address] Geo Avendano MD E-prescribe Rx Request Social [...] Telephone Encounter - Chuck Salgado M.A. - 11/27/2019 9:39 AM EST Faxed to pharmacy * Telephone Encounter - Christi Whitman M.A. - 11/27/2019 8:12 AM EST Lab Results Component Value Date CHOL 191 06/09/2019 LDL 105 06/09/2019 HDL 49 06/09/2019 TRIG 185 06/09/2019 SGOT 29 06/09/2019 SGPT 49 06/09/2019 * Telephone Encounter - David Suero - 11/27/2019 8:10 AM EST Patient would like script to be: E-PRESCRIBED/FAXED TO PHARMACY WHEN WAS THE PATIENT'S LAST APPOINTMENT IN ADULT MEDICINE? 09/07/19 WHEN WAS THE LAST TIME THE PATIENT SAW THEIR PCP? Same as above Does patient have an upcoming appointment? Letter sent to book next appointment (THE MEDICATION REQUESTED IS ON THE MED [...] N/A Patients current insurance carrier is: Payor: [facility] FFS / Plan: [facility] MEDICARE PREMIUM $10 [place] / Product Type: MEDICARE [id number] documented in this encounter Plan of Treatment Not on file documented as of this encounter Visit Diagnoses Not on filedocumented in this encounter Care Teams Commissioner Of Internal Revenue Relationship Specialty Start Date End Date Geo Avendano MD PCP - General 04/08/07 05/31/22 [facility] [address] [place] [address] PCP - General Internal Medicine 06/01/22 [facility] [address] [place] [address] PCP - General Internal Medicine 07/16/22 Cheko Hassan MD [address] [place] [address] [place] [address] Governor Assembler Cardiovascular Disease 01/12/21 Mitchell Tapia MD, PHD [address] [place] [address] [place] [address] Specialist Neurosurgery 08/17/21 Ramu Solano MD [address] [place] [address] [place] [address] Specialist Internal Medicine 08/23/21 Sara Rodriguez NP [address] [place] [address] [place] [address] Nurse Practitioner Cardiology 09/20/21 Peter Benavides PA-C [address] [place] [address] [place] [address] Specialist Neurosurgery 12/07/21 Tierra Han, RAMAN [address] [place] [address] Cardiology 07/14/24 documented as of this encounter
--- OUTSIDE RECORDS SUMMARY | 2025-07-09 12:22 | XMS_ITS | Encounter Summary ---
Author Organization [facility] Address [address] [place] [address] Care Team Providers Care Sand Cleaning Machine Operator Name Role Phone Geo Avendano MD Primary Care Provider Cheko Jaramillo MD Unavailable [phone] Mitchell Tapia MD, PHD Unavailable Unava Ramu Blackwell MD Unavailable Unavailabl e Sara Rodriguez NP Unavailable [phone] Peter Benavides PA-C Unavailable [phone] Ronald Desai Primary Care Provider [phone] Ronald Desai Primary Care Provider [phone] Tierra Han ASTHMA EDUCATOR Unavailable [phone] Encounter Details Date Type Department Care Team Description 07/27/2020 Bead Wrapper Report Medical Records [address] [place] [address] Robby Blevins Social History Tobacco Use Types Packs/Day Years [...] have Coronavirus / COVID-19? Unable to assess 07/28/2020 7:35 AM EDT documented as of this encounter Plan of Treatment Not on file documented as of this encounter Visit Diagnoses Not on filedocumented in this encounter Care Teams Sand Cleaning Machine Operator Relationship Specialty Start Date End Date Geo Avendano MD PCP - General 04/08/07 05/31/22 Ronald Desai [address] [place] [address] PCP - General Internal Medicine 06/01/22 07/15/22 [facility] [address] [place] [address] PCP - General Internal Medicine 07/16/22 Cheko Hassan MD [address] [place] [address] [place] [address] Knitting Machine Fixer Head Cardiovascular Disease 01/12/21 Mitchell Tapia MD, PHD [address] [place] [address] [place] [address] Specialist Neurosurgery 08/17/21 Ramu Solano MD [address] [place] [address] [place] [address] Specialist Internal Medicine 08/23/21 Sara Rodriguez NP [address] [place] [address] [place] [address] Nurse Practitioner Cardiology 09/20/21 Peter Benavides PA-C [address] [place] [address] Specialist Neurosurgery 12/07/21 Tierra Han NP [address] [place] [address] Cardiology 07/14/24 documented as of this encounter
--- OUTSIDE RECORDS SUMMARY | 2025-07-09 12:22 | XMS_ITS | Encounter Summary ---
Author Organization [facility] Address [address] [place] [address] Care Team Providers Care Obgyn Specialist Name Role Phone Geo Avendano MD Primary Care Provider Cheko Jaramillo MD Unavailable [phone] Mitchell Tapia MD, PHD Unavailable Unava Ramu Blackwell MD Unavailable Unavailabl e Sara Rodriguez PULMONARY DISEASE SPECIALIST Unavailable [phone] Peter Benavides PA-C Unavailable [phone] Ronald Desai Primary Care Provider [phone] Ronald Desai Primary Care Provider [phone] Tierra Han PULMONARY DISEASE SPECIALIST Unavailable [phone] Encounter Details Date Type Department Care Team Description 11/08/2016 Commercial Real Estate Broker Report Medical Records [address] [place] [address] Cheko Brooks PA-C Social History Tobacco Use Types Packs/Day [...] on filedocumented in this encounter Care Teams Obgyn Specialist Relationship Specialty Start Date End Date Goe Avendano MD PCP - General 04/08/07 [facility]/31/22 [facility] [address] [place] [address] PCP - General Internal Medicine 06/01/22 07/15/22 [facility] [address] [place] [address] PCP - General Internal Medicine 07/16/22 Cheko Hassan MD [address] [place] [address] [place] [address] Public Health Engineer Cardiovascular Disease 01/12/21 Mitchell Tapia MD, PHD [address] [place] [address] [place] [address] Specialist Neurosurgery 08/17/21 Ramu Solano MD [address] [place] [address] [place] [address] Specialist Internal Medicine 08/23/21 Sara Rodriguez NP [address] [place] [address] [place] [address] Nurse Practitioner Cardiology 09/20/21 Peter Benavides PA-C 175 [facility] [address] [place] [address] Specialist Neurosurgery 12/07/21 Tierra Han NP [address] [place] [address] Cardiology 07/14/24 documented as of this encounter
--- OUTSIDE RECORDS SUMMARY | 2025-07-09 12:22 | XMS_ITS | Encounter Summary ---
Author Organization [facility] Address [address] [place] [address] Care Team Providers Care Retail Banker Name Role Phone Geo Avendano MD Primary Care Provider Cheko Jaramillo MD Unavailable [phone] [place] Tapia MD, PHD Unavailable Unava Ramu Blackwell MD Unavailable Unavailabl e Sara Rodriguez TREATING PLANT PUMPER Unavailable [phone] Peter Benavides PA-C Unavailable [phone] Ronald Desai Primary Care Provider [phone] Ronald Desai Primary Care Provider [phone] Tierra Han TREATING PLANT PUMPER Unavailable [phone] Reason for Visit * Reason Onset Date Comments injection 08/30/2020 Encounter Details Date Type Department Care Team Description 08/30/2020 Telephone Physiatr - [address] [id number] Pete Gonzalez DO injection Social History Tobacco Use Types Packs/Day Years [...] encounter Miscellaneous Notes * Telephone Encounter - Mariah Diaz M.A. - 08/30/2020 1:[address] Tapia ordered an injection C7-T1 GLEN Message left for patient to call to schedule. documented in this encounter Plan of Treatment Not on file documented as of this encounter Visit Diagnoses Not on filedocumented in this encounter Care Teams Retail Banker Relationship Specialty Start Date End Date Geo Avendano MD PCP - General 04/08/07 05/31/22 Ronald Desai [address] [place] [address] PCP - General Internal Medicine 06/01/22 07/15/22 Ronald Desai [address] [place] [address] PCP - General Internal Medicine 07/16/22 Cheko Hassan MD [address] [place] [address] [place] [address] Accounts Payable Or Receivable Clerk Cardiovascular Disease 01/12/21 [place] Tapia MD, PHD [address] [place] [address] [place] [address] Specialist Neurosurgery 08/17/21 Ramu Solano MD [address] [place] [address] [place] [address] Specialist Internal Medicine 08/23/21 Sara Rodriguez, RAMAN [address] [facility] [facility] [address] [place] [address] Nurse Practitioner Cardiology 09/20/21 Peter Benavides PA-C 175 [facility] [address] [place] [address] Specialist Neurosurgery 12/07/21 Tierra Han, RAMAN [address] [facility] [address] [place] [address] Cardiology 07/14/24 documented as of this encounter
--- OUTSIDE RECORDS SUMMARY | 2025-07-09 12:22 | XMS_ITS | Encounter Summary ---
Author Organization [facility] Address [address] [place] [address] Care Team Providers Care Concrete Block Layer Name Role Phone Geo Avendano MD Primary Care Provider Cheko Jaramillo MD Unavailable [phone] [place] Tapia MD, PHD Unavailable Unava Ramu Blackwell MD Unavailable Unavailabl e Sara Rodriguez PARTICIPANT ADMINISTRATOR Unavailable [phone] Peter Benavides PA-C Unavailable [phone] Ronald Desai Primary Care Provider [phone] Ronald Desai Primary Care Provider [phone] Tierra Han PARTICIPANT ADMINISTRATOR Unavailable [phone] Encounter Details Date Type Department Care Team Description 11/05/2016 Merchandising Lead Report Medical Records [address] [place] [address] Evelio Lopez PA-C Social History Tobacco Use Types Packs/Day [...] on filedocumented in this encounter Care Teams Concrete Block Layer Relationship Specialty Start Date End Date Geo Avendano MD PCP - General 04/08/07 05/31/[address] [place] [address] PCP - General Internal Medicine 06/01/22 07/15/22 Ronald Desai [address] [place] [address] PCP - General Internal Medicine 07/16/22 Cheko Hassan MD [address] [place] [address] [place] [address] Flour Broker Cardiovascular Disease 01/12/21 [place] Tapia MD, PHD [address] [place] [address] [place] [address] Specialist Neurosurgery 08/17/21 Ramu Solano MD [address] [place] [address] [place] [address] Specialist Internal Medicine 08/23/21 Sara Rodriguez NP [address] [place] [address] [place] [address] Nurse Practitioner Cardiology 09/20/21 Peter Benavides PA-C 175 [facility] [address] [place] [address] Specialist Neurosurgery 12/07/21 Tierra Han NP [address] [place] [address] Cardiology 07/14/24 documented as of this encounter
--- OUTSIDE RECORDS SUMMARY | 2025-07-09 12:22 | XMS_ITS | Encounter Summary ---
Author Organization [facility] Address [address] [place] [address] Care Team Providers Care Founder Name Role Phone Cheko Hassan MD Unavailable [phone] [place] Tapia MD, PHD Unavailable Unava ilRamu Reid MD Unavailable Unavailabl e Sara Rodriguez CEMENT CONTRACTOR Unavailable [phone] Peter Benavides PA-C Unavailable [phone] Ronald Desai Primary Care Provider [phone] Tierra Han NP Unavailable [phone] Reason for Visit * Reason Onset Date Comments Provider Call Back 10/30/2022 Encounter Details Date Type Department Care Team Description 10/30/2022 Telephone Nephrology - [place] [address] [place] [address] Marcelo Roach MD [address] [place] [address] Provider Call Back Social History Tobacco Use Types Packs/Day Years [...] encounter Miscellaneous Notes * Telephone Encounter - Emely Vaughn - 10/30/2022 10:06 AM EST Caller requesting call back from provider: Is the caller the patient? YES Reason for call back: Patient states he has had Diarrhea for the last 3 days. Less today. No fever.Patient is concerned about his kidneys. Patient is asking if he should have lab work done. Please call patient. Caller offered to speak with the nurse for assistance: YES Response: Patient offered to speak with nurse for assistance and patient agreed. Message forwarded to nurse. documented in this encounter Plan of Treatment Not on file documented as of this encounter Visit Diagnoses Not on filedocumented in this encounter Care Teams Founder Relationship Specialty Start Date End Date Ronald Desai [address] [place] [address] PCP - General Internal Medicine 07/16/22 Cheko Hassan MD [address] [place] [address] [address] [place] [address] Food Service Utility Worker Cardiovascular Disease 01/12/21 [place] Tapia MD, PHD [address] [facility] [address] [place] [address] Specialist Neurosurgery 08/17/21 Ramu Solano MD [address] [place] [address] [address] [place] [address] Specialist Internal Medicine 08/23/21 Sara Rodriguez, RAMAN 2 [facility] [address] [place] [address] Nurse Practitioner Cardiology 09/20/21 Peter Benavides PA-C [address] [place] [address] [address] [place] [address] Specialist Neurosurgery 12/07/21 Tierra Han, RAMAN [address] [facility] [address] [place] [address] Cardiology 07/14/24 documented as of this encounter
--- OUTSIDE RECORDS SUMMARY | 2025-07-09 12:22 | XMS_ITS | Encounter Summary ---
Author Organization [facility] Address [address] [place] [address] Care Team Providers Care Lumber Carrier Operator Name Role Phone Cheko Hassan MD Unavailable [phone] [place] Tapia MD, PHD Unavailable Unava ilRamu Reid MD Unavailable Unavailabl e Sara Rodriguez VISUAL LEAD Unavailable [phone] Peter Benavides PA-C Unavailable [phone] Ronald Desai Primary Care Provider [phone] Tierra Han NP Unavailable [phone] Encounter Details Date Type Department Care Team Description 10/23/2022 SCAN [facility] Neurosurgery Deputy [address] [place] [id number] [place] Tapia MD, PHD Social History Tobacco [...] filedocumented in this encounter Care Teams Lumber Carrier Operator Relationship Specialty Start Date End Date Min Desaimilagros Kuhn [address] [place] [address] PCP - General Internal Medicine 07/16/22 Cheko Hassan MD [address] [place] [address] [address] [place] [address] Tree Scout Cardiovascular Disease 01/12/21 [place] Tapia MD, PHD 2 [facility] [address] [place] [address] Specialist Neurosurgery 08/17/21 Ramu Solano MD [address] [place] [address] [place] [address] Specialist Internal Medicine 08/23/21 Sara Rodriguez NP [address] [place] [address] [address] [place] [address] Nurse Practitioner Cardiology 09/20/21 Peter Benavides PA-C 175 [facility] [address] [place] [address] Specialist Neurosurgery 12/07/21 Tierra Han NP [address] [place] [address] [address] [place] [address] Cardiology 07/14/24 documented as of this encounter
--- OUTSIDE RECORDS SUMMARY | 2025-07-09 12:22 | XMS_ITS | Encounter Summary ---
Author Organization [facility] Address [address] [place] [address] Care Team Providers Care Fish Hatchery Inspector Name Role Phone Geo Avendano MD Primary Care Provider Cheko Jaramillo MD Unavailable [phone] [place] Tapia MD, PHD Unavailable Unava Ramu Blackwell MD Unavailable Unavailabl e Sara Rodriguez JUKE BOX MECHANIC Unavailable [phone] Peter Benavides PA-C Unavailable [phone] Ronald Desai Primary Care Provider [phone] Ronald Desai Primary Care Provider [phone] Tierra Han JUKE BOX MECHANIC Unavailable [phone] Encounter Details Date Type Department Care Team Description 12/05/2015 Release of Information Medical Records [address] [place] [address] Abstract, Provider Social History Tobacco Use Types [...] on filedocumented in this encounter Care Teams Fish Hatchery Inspector Relationship Specialty Start Date End Date Geo Avendano MD PCP - General 04/08/07 05/31/22 [facility] [address] [place] [address] PCP - General Internal Medicine 06/01/22 07/15/22 [facility] [address] [place] [address] PCP - General Internal Medicine 07/16/22 Cheko Hassan MD [address] [place] [address] [place] [address] Parts Salesperson Cardiovascular Disease 01/12/21 [place] Tapia MD, PHD [address] [place] [address] [address] [place] [address] Specialist Neurosurgery 08/17/21 Ramu Solano MD [address] [place] [address] [place] [address] Specialist Internal Medicine 08/23/21 Sara Rodriguez NP [address] [place] [address] [address] [place] [address] Nurse Practitioner Cardiology 09/20/21 Peter Benavides PA-C 175 [facility] [address] [place] [address] Specialist Neurosurgery 12/07/21 Tierra Han NP [address] [place] [address] Cardiology 07/14/24 documented as of this encounter
--- OUTSIDE RECORDS SUMMARY | 2025-07-09 12:22 | XMS_ITS | Encounter Summary ---
Author Organization [facility] Address [address] [place] [address] Care Team Providers Care Forming Machine Upkeep Mechanic Helper Name Role Phone Cheko Hassan MD Unavailable [phone] [place] Tapia MD, PHD Unavailable Unava ilRamu Reid MD Unavailable Unavailabl e Sara Rodriguez LINUX ADMIN ENGINEER Unavailable [phone] Peter Benavides PA-C Unavailable Ronald Desai Primary Care Provider [phone] Tierra Han NP Unavailable [phone] Encounter Details Date Type Department Care Team Description 12/07/2022 Hospital Medical Records [address] [place] [address] [place] Tapia MD, PHD Social History Tobacco [...] suspected to have Coronavirus/COVID-19? No / Unsure 12/05/2022 9:00 AM EST documented as of this encounter Plan of Treatment Not on file documented as of this encounter Procedures Procedure Name Priority Date/Time Associated Diagnosis Comments OUTSIDE EKG Routine 12/07/2022 documented in this encounter Results * OUTSIDE EKG (12/07/2022) Provider Default CARDIOLOGY documented in this encounter Visit Diagnoses Not on filedocumented in this encounter Care Teams Forming Machine Upkeep Mechanic Helper Relationship Specialty Start Date End Date Ronald Desai [address] [place] [address] PCP - General Internal Medicine 07/16/22 Cheko Hassan MD [address] [place] [address] [place] [address] Mail Truck Driver Cardiovascular Disease 01/12/21 [place] Tapia MD, PHD [address] [place] [address] [place] [address] Specialist Neurosurgery 08/17/21 Ramu Solano MD [address] [place] [address] [place] [address] Specialist Internal Medicine 08/23/21 Sara Rodriguez NP [address] [place] [address] [place] [address] Nurse Practitioner Cardiology 09/20/21 Peter Benavides PA-C 175 [facility] [address] [place] [address] Specialist Neurosurgery 12/07/21 Tierra Han NP [address] [place] [address] Cardiology 07/14/24 documented as of this encounter
--- OUTSIDE RECORDS SUMMARY | 2025-07-09 12:22 | XMS_ITS | Encounter Summary ---
Author Organization [facility] Address [address] [place] [address] Care Team Providers Care Want Ad Supervisor Name Role Phone Geo Avendano MD Primary Care Provider Cheko Jaramillo MD Unavailable [phone] [place] Tapia MD, PHD Unavailable Unava Ramu Blackwell MD Unavailable Unavailabl e Sara Rodriguez LANGUAGE AND LITERATURE DIVISION CHAIR Unavailable Peter Benavides PA-C Unavailable [phone] Ronald Desai Primary Care Provider [phone] Ronald Desai Primary Care Provider Tierra Han LANGUAGE AND LITERATURE DIVISION CHAIR Unavailable [phone] Encounter Details Date Type Department Care Team Description 04/04/2020 Academic Director Report Medical Records [address] [place] [address] April Kat Social History Tobacco Use Types Packs/Day Years [...] on filedocumented in this encounter Care Teams Want Ad Supervisor Relationship Specialty Start Date End Date Geo Avendano MD PCP - General 04/08/07 05/31/22 [facility] [address] [place] [address] PCP - General Internal Medicine 06/01/22 07/15/22 [facility] [address] [place] [address] PCP - General Internal Medicine 07/16/22 Cheko Hassan MD [address] [place] [address] [place] [address] Rod Filler Cardiovascular Disease 01/12/21 [place] Tapia MD, PHD [address] [place] [address] [place] [address] Specialist Neurosurgery 08/17/21 Ramu Solano MD [address] [place] [address] [place] [address] Specialist Internal Medicine 08/23/21 Sara Rodriguez NP [address] [place] [address] [place] [address] Nurse Practitioner Cardiology 09/20/21 Peter Benavides PA-C 175 [facility] [address] [place] [address] Specialist Neurosurgery 12/07/21 Tierra Han NP [address] [place] [address] Cardiology 07/14/24 documented as of this encounter
--- OUTSIDE RECORDS SUMMARY | 2025-07-09 12:22 | XMS_ITS | Encounter Summary ---
Author Organization [facility] Address [address] [place] [address] Care Team Providers Care Inside Finisher Name Role Phone Cheko Hassan MD Unavailable [phone] [place] Tapia MD, PHD Unavailable Unava ilRamu Reid MD Unavailable Unavailabl e Sara Rodriguez BRASS FINISHER Unavailable [phone] Peter Benavides PA-C Unavailable [phone] Ronald Desai Primary Care Provider [phone] Tierra Han NP Unavailable Reason for Visit * Reason Onset Date Comments REFERRAL 07/26/2022 Encounter Details Date Type Department Care Team Description 07/26/2022 Telephone [facility] Medical [facility] Neurosurgery [place] [address] [address] Peter Benavides PA-C [address] [id number] REFERRAL Social History Tobacco Use Types Packs/Day Years [...] encounter Miscellaneous Notes * Telephone Encounter - Peter Benavides PA-C - 07/26/2022 4:[address] Middleton would be fine. * Telephone Encounter - Nery Andrade - 07/26/2022 3:[address] Santos office said Mr. Ceballos's shoulder is too far gone and needs an Ortho surgeon. Pt. Would like to know what we do from here? documented in this encounter Plan of Treatment Not on file documented as of this encounter Visit Diagnoses Not on filedocumented in this encounter Care Teams Inside Finisher Relationship Specialty Start Date End Date Ronald Desai [address] [place] [address] PCP - General Internal Medicine 07/16/22 Cheko Hassan MD [address] [place] [address] [address] [place], [place] [phone] Scheduling Agent Cardiovascular Disease 01/12/21 [place] Tapia MD, PHD [address] [facility] [address] [place] [address] Specialist Neurosurgery 08/17/21 Ramu Solano MD [address] [place] [address] DRIVE [address] [place] [address] Specialist Internal Medicine 08/23/21 Sara Rodriguez NP 2 [facility] [address] [place] [address] Nurse Practitioner Cardiology 09/20/21 Peter Benavides PA-C [address] [place] [address] [address] [place] [address] Specialist Neurosurgery 12/07/21 Tierra Han, RAMAN [address] [facility] [address] [place] [address] Cardiology 07/14/24 documented as of this encounter
--- OUTSIDE RECORDS SUMMARY | 2025-07-09 12:22 | XMS_ITS | Encounter Summary ---
Author Organization [facility] Address [address] [place] [address] Care Team Providers Care Merchandising Assistant Name Role Phone Cheko Hassan MD Unavailable [phone] [place] Tapia MD, PHD Unavailable Unava ilRamu Reid MD Unavailable Unavailabl e Sara Rodriguez PAYROLL ACCOUNTANT Unavailable [phone] Peter Benavides PA-C Unavailable [phone] Ronald Desai Primary Care Provider [phone] Tierra Han NP Unavailable [phone] Reason for Visit * Reason Onset Date Comments Care Management 12/05/2022 Review of system s/ chronic diaphoresis Encounter Details Date Type Department Care Team Description 12/05/[address] [facility] Medical [facility] [address] [place] [address] [place] [phone] Cande Moreno APRN Care Management (Review of systems/ chronic diaphoresis) Social History Tobacco Use Types Packs/Day Years [...] on filedocumented in this encounter Care Teams Merchandising Assistant Relationship Specialty Start Date End Date Ronald Desai [address] [place] [address] PCP - General Internal Medicine 07/16/22 Cheko Hassan MD [address] [place] [address] [place] [address] Engineering Clerk Cardiovascular Disease 01/12/21 [place] Tapia MD, PHD [address] [place] [address] [place] [address] Specialist Neurosurgery 08/17/21 Ramu Solano MD [address] [place] [address] [place] [address] Specialist Internal Medicine 08/23/21 Sara Rodriguez NP [address] [place] [address] [place] [address] Nurse Practitioner Cardiology 09/20/21 Peter Benavides PA-C 175 [facility] [address] [place] [address] Specialist Neurosurgery 12/07/21 Tierra Han NP [address] [place] [address] [place] [address] Cardiology 07/14/24 documented as of this encounter
--- OUTSIDE RECORDS SUMMARY | 2025-07-09 12:22 | XMS_ITS | Encounter Summary ---
Author Organization [facility] Address [address] [place] [address] Care Team Providers Care Fire Alarm Inspector Name Role Phone Geo Avendano MD Primary Care Provider Cheko Jaramillo MD Unavailable [phone] [place] Tapia MD, PHD Unavailable Unava Ramu Blackwell MD Unavailable Unavailabl e Sara Rodriguez COLLEGE TEACHER Unavailable [phone] Peter Benavides PA-C Unavailable [phone] Ronald Desai Primary Care Provider [phone] Ronald Desai Primary Care Provider [phone] Tierra Han COLLEGE TEACHER Unavailable [phone] Encounter Details Date Type Department Care Team Description 09/03/2019 SCAN Medical Records [address] [place] [address] [place] Tapia MD, PHD Social History Tobacco [...] Date/Time Associated Diagnosis Comments OUTSIDE EKG Routine 09/03/2019 documented in this encounter Results * OUTSIDE EKG (09/03/2019) Provider Abstract CARDIOLOGY documented in this encounter Visit Diagnoses Not on filedocumented in this encounter Care Teams Fire Alarm Inspector Relationship Specialty Start Date End Date Geo Avendano MD PCP - General 04/08/07 05/31/22 Ronald Desai [address] [place] [address] PCP - General Internal Medicine 06/01/22 07/15/22 RenettaRonald singh [address] [place] [address] PCP - General Internal Medicine 07/16/22 Cheko Hassan MD [address] [place] [address] [place] [address] Distributed Energy Systems Consultant Cardiovascular Disease 01/12/21 [place] Tapia MD, PHD [address] [place] [address] [place] [address] Specialist Neurosurgery 08/17/21 Ramu Solano MD [address] [place] [address] [place] [address] Specialist Internal Medicine 08/23/21 Sara Rodriguez NP [address] [place] [address] [place] [address] Nurse Practitioner Cardiology 09/20/21 Peter Benavides PA-C 175 [facility] [address] [place] [address] Specialist Neurosurgery 12/07/21 Tierra Han NP [address] [place] [address] 410 [place] [address] Cardiology 07/14/24 documented as of this encounter
--- OUTSIDE RECORDS SUMMARY | 2025-07-09 12:22 | XMS_ITS | Encounter Summary ---
Author Organization [facility] Address [address] [place] [address] Care Team Providers Care Cashier Supervisor Name Role Phone Geo Avendano MD Primary Care Provider Cheko Jaramillo MD Unavailable [phone] Mitchell Tapia MD, PHD Unavailable Unava Ramu Blackwell MD Unavailable Unavailabl e Sara Rodriguez SPARERIBS TRIMMER Unavailable [phone] Peter Benavides PA-C Unavailable Ronald Desai Primary Care Provider [phone] Ronald Desai Primary Care Provider [phone] Tierra Han SPARERIBS TRIMMER Unavailable [phone] Reason for Visit * Reason Onset Date Comments Appointment-Internal Referral 01/04/2017 Encounter Details Date Type Department Care Team Description 01/04/2017 Telephone Podiatry - [address] [address] Tierra Barnes DPM Appointment-Internal Referral Social History Tobacco Use Types Packs/Day [...] encounter Miscellaneous Notes * Telephone Encounter - Cierra Tee M.A. - 01/07/2017 2:24 PM EDT Pt scheduled for 01/09/2017 @ 11am, please inform the patient * Telephone Encounter - Fito Cerna - 01/07/2017 11:44 AM EDT I was not able to contact the patient on time, patient was not aware of the appointment, Is there other time patient can be seen. * Telephone Encounter - Cierra Tee M.A. - 01/04/2017 11:52 AM EDT Pt scheduled for 01/07/2017 @ 8am, please inform the patient and add notes * Telephone Encounter - Fito Cerna - 01/04/2017 11:40 AM EDT Patient is referred to Podiatry re: I will request a referral to Podiatry. Cyndee provider Reason for referral: Problem visit for ingrown nail and infection Payor: Not third-democrat related There in no appointments within a time frame (5-7 days), marcela harrison on booking. documented in this encounter Plan of Treatment Not on file documented as of this encounter Visit Diagnoses Not on filedocumented in this encounter Care Teams Cashier Supervisor Relationship Specialty Start Date End Date Geo Avendano MD PCP - General 04/08/07 [facility] [address] [place] [address] PCP - General Internal Medicine 06/01/22 07/15/22 [facility] [address] [place] [address] PCP - General Internal Medicine 07/16/22 Cheko Hassan MD [address] [place] [address] [address] [place] [address] Supervisor Real Estate Office Cardiovascular Disease 01/12/21 Mitchell Tapia MD, PHD [facility] [address] [place] [address] Specialist Neurosurgery 08/17/21 Ramu Solano MD [address] [place] [address] [address] [place] [address] Specialist Internal Medicine 08/23/21 Sara Rodriguez, RAMAN [address] [place] [address] [address] [place] [address] Nurse Practitioner Cardiology 09/20/21 Peter Benavides PA-C [address] [facility] [address] [place] [address] Specialist Neurosurgery 12/07/21 Tierra Han NP [address] [place] [address] [address] [place] [address] Cardiology 07/14/24 documented as of this encounter
--- OUTSIDE RECORDS SUMMARY | 2025-07-09 12:22 | XMS_ITS | Encounter Summary ---
Author Organization [facility] Address [address] [place] [address] Care Team Providers Care Level Vial Sealer Name Role Phone Geo Avendano MD Primary Care Provider Cheko Jaramillo MD Unavailable [phone] Mitchell Tapia MD, PHD Unavailable Unava Ramu Blackwell MD Unavailable Unavailabl e Sara Rodriguez NP Unavailable [phone] Peter Benavides PA-C Unavailable [phone] Ronald Desai Primary Care Provider [phone] Ronald Desai Primary Care Provider [phone] Tierra Han PLANNING ENGINEER Unavailable [phone] Encounter Details Date Type Department Care Team Description 11/20/2016 Metal Riveting Machine Operator Report Medical Records [address] [place] [address] Valdo Reardon Social History Tobacco Use Types [...] on filedocumented in this encounter Care Teams Level Vial Sealer Relationship Specialty Start Date End Date Geo Avendano MD PCP - General 04/08/07 [facility]/31/22 [facility] [address] [place] [address] PCP - General Internal Medicine 06/01/22 07/15/22 [facility] [address] [place] [address] PCP - General Internal Medicine 07/16/22 Cheko Hassan MD [address] [place] [address] [place] [address] Laboratory Animal Facility Supervisor Cardiovascular Disease 01/12/21 Mitchell Tapia MD, PHD [address] [place] [address] [address] [place] [address] Specialist Neurosurgery 08/17/21 Ramu Solano MD [address] [place] [address] [place] [address] Specialist Internal Medicine 08/23/21 Sara Rodriguez NP [address] [place] [address] [address] [place] [address] Nurse Practitioner Cardiology 09/20/21 Peter Benavides PA-C [address] [facility] [address] [place] [address] Specialist Neurosurgery 12/07/21 Tierra Han NP [address] [place] [address] Cardiology 07/14/24 documented as of this encounter
--- OUTSIDE RECORDS SUMMARY | 2025-07-09 12:22 | XMS_ITS | Encounter Summary ---
Author Organization [facility] Address [address] [place] [address] Care Team Providers Care Engraved Roller Inspector Name Role Phone Geo Avendano MD Primary Care Provider Cheko Jaramillo MD Unavailable [phone] Mitchell aTpia MD, PHD Unavailable Unava Ramu Blackwell MD Unavailable Unavailabl e Sara Rodriguez DRYWALLER Unavailable [phone] Peter Benavides PA-C Unavailable [phone] Ronald Desai Primary Care Provider [phone] Ronald Desai Primary Care Provider [phone] Tierra Han DRYWALLER Unavailable [phone] Encounter Details Date Type Department Care Team Description 08/17/2020 Duplicate Maker Report Medical Records [address] [place] [address] Rajeev Vee MD Social History Tobacco Use [...] on filedocumented in this encounter Care Teams Engraved Roller Inspector Relationship Specialty Start Date End Date Geo Avendano MD PCP - General 04/08/07 05/31/22 Ronald Desai [address] [place] [address] PCP - General Internal Medicine 06/01/22 07/15/22 Ronald Desai [address] [place] [address] PCP - General Internal Medicine 07/16/22 Cheko Hassan MD [address] [place] [address] [place] [address] Stopperer Assembler Cardiovascular Disease 01/12/21 Mitchell Tapia MD, PHD [address] [place] [address] [place] [address] Specialist Neurosurgery 08/17/21 Ramu Solano MD [address] [place] [address] [place] [address] Specialist Internal Medicine 08/23/21 Sara Rodriguez NP [address] [place] [address] [place] [address] Nurse Practitioner Cardiology 09/20/21 Peter Benavides PA-C [address] [place] [address] Specialist Neurosurgery 12/07/21 Tierra Han NP [address] [place] [address] Cardiology 07/14/24 documented as of this encounter
--- OUTSIDE RECORDS SUMMARY | 2025-07-09 12:22 | XMS_ITS | Encounter Summary ---
Author Organization [facility] Address [address] [place] [address] Care Team Providers Care Installer Technician Name Role Phone Cheko Hassan MD Unavailable [phone] Mitchell Tapia MD, PHD Unavailable Unava Ramu Blackwell MD Unavailable Unavailabl e Sara Rodriguez AUTO BATTERY BUILDER Unavailable [phone] Peter Benavides PA-C Unavailable [phone] Ronald Desai Primary Care Provider [phone] Tierra Han NP Unavailable [phone] Reason for Visit * Reason Onset Date Comments Pain, Post Operative 12/14/2022 Encounter Details Date Type Department Care Team Description 12/14/2022 Telephone [facility] Neurosurgery Hector [address] [place] [address] Mitchell Tapia MD, PHD Pain, Post Operative Social History Tobacco Use Types Packs/Day Years [...] encounter Miscellaneous Notes * Telephone Encounter - Myriam Wong - 12/14/2022 11:16 AM EST Alberto states called twice yesterday regarding tingling & stabbing pain in both hips and arms and did not receive a return call. Pleae call [phone] documented in this encounter Plan of Treatment Not on file documented as of this encounter Visit Diagnoses Not on filedocumented in this encounter Care Teams Installer Technician Relationship Specialty Start Date End Date Ken Desaichloe Kuhn [address] [place] [address] PCP - General Internal Medicine 07/16/22 Cheko Hassan MD [address] [place] [address] [place] [address] Dental Mechanic Cardiovascular Disease 01/12/21 Mitchell Tapia MD, PHD [address] [place] [address] [place] [address] Specialist Neurosurgery 08/17/21 Ramu Solano MD [address] [place] [address] [place] [address] Specialist Internal Medicine 08/23/21 Sara Rodriguez NP [address] [place] [address] [place] [address] Nurse Practitioner Cardiology 09/20/21 Peter Benavides PA-C 175 [facility] [address] [place] [address] Specialist Neurosurgery 12/07/21 Tierra Han NP [address] [place] [address] Cardiology 07/14/24 documented as of this encounter
--- OUTSIDE RECORDS SUMMARY | 2025-07-09 12:23 | XMS_ITS | Encounter Summary ---
Author Organization [facility] Address [address] [place] [address] Care Team Providers Care Cosmetics And Toiletries Salesperson Name Role Phone Geo Avendano MD Primary Care Provider Cheko Jaramillo MD Unavailable [phone] Mitchell Tapia MD, PHD Unavailable Unava Ramu Blackwell MD Unavailable Unavailabl e Sara Rodriguez INTERNAL MEDICINE NURSE PRACTITIONER Unavailable [phone] Peter Benavides PA-C Unavailable [phone] Ronald Desai Primary Care Provider [phone] Ronald Desai Primary Care Provider [phone] Tierra Han INTERNAL MEDICINE NURSE PRACTITIONER Unavailable [phone] Encounter Details Date Type Department Care Team Description 06/22/2014 Release of Information Medical Records [address] [place] [address] Abstract, Provider Social History Tobacco Use Types [...] on filedocumented in this encounter Care Teams Cosmetics And Toiletries Salesperson Relationship Specialty Start Date End Date Geo Avendano MD PCP - General 04/08/07 05/31/[address] [address] [place] [address] PCP - General Internal Medicine 06/01/22 07/15/[address] [address] [place] [address] PCP - General Internal Medicine 07/16/22 Cheko Hassan MD [address] [place] [address] [place] [address] Insurance Verification Clerk Cardiovascular Disease 01/12/21 Mitchell Tapia MD, PHD [address] [place] [address] [address] [place] [address] Specialist Neurosurgery 08/17/21 Ramu Solano MD [address] [place] [address] [place] [address] Specialist Internal Medicine 08/23/21 Sara Rodriguez NP [address] [place] [address] [address] [place] [address] Nurse Practitioner Cardiology 09/20/21 Peter Benavides PA-C [address] [facility] [address] [place] [address] Specialist Neurosurgery 12/07/21 Tierra Han NP [address] [place] [address] Cardiology 07/14/24 documented as of this encounter
--- OUTSIDE RECORDS SUMMARY | 2025-07-09 12:23 | XMS_ITS | Clinical Summary ---
Author Organization [facility] Address [address] [place] [address] Care Team Providers Care Generator Operator Straight Bevel Gear Name Role Phone Ronald Desai MD Primary Care Provider [phone] Medications Medication Sig Dispensed Refills Start Date [...] Risk Assessment 2020 COVID-19 Vaccine ( season) 2025 11/04/2021, 10/03/2021, 01/09/2021, Additional history exists Influenza Vaccine (#1) 2025 2, 07/07/2021, 07/28/2020, Additional history exists DTap [...] age to complete this topic Care Teams Generator Operator Straight Bevel Gear Relationship Specialty Start Date End Date Ronald Desai MD [address] [place] [address] PCP - General Hospitalist Medicine 08/27/22
--- OUTSIDE RECORDS SUMMARY | 2025-07-09 12:23 | XMS_ITS | Encounter Summary ---
Author Organization [facility] Address [address] [place] [address] Care Team Providers Care First Leveler Name Role Phone Geo Avendano MD Primary Care Provider Cheko Jaramillo MD Unavailable [phone] Mitchell Tapia MD, PHD Unavailable Unava Ramu Blackwell MD Unavailable Unavailabl e Sara Rodriguez NP Unavailable [phone] Peter Benavides PA-C Unavailable [phone] Ronald Desai Primary Care Provider [phone] Ronald Desai Primary Care Provider [phone] Tierra Han SENIOR MAJOR GIFTS OFFICER Unavailable [phone] Encounter Details Date Type Department Care Team Description 05/02/2019 Manifold Operator Report Medical Records [address] [place] [address] Elza Luna Social History Tobacco Use Types Packs/Day Years [...] on filedocumented in this encounter Care Teams First Leveler Relationship Specialty Start Date End Date Geo Avendano MD PCP - General 04/08/07 05/31/22 [facility] [address] [place] [address] PCP - General Internal Medicine 06/01/22 07/15/22 [facility] [address] [place] [address] PCP - General Internal Medicine 07/16/22 Cheko Hassan MD [address] [place] [address] [place] [address] Fashion Consultant Cardiovascular Disease 01/12/21 Mitchell Tapia MD, PHD [address] [place] [address] [address] [place] [address] Specialist Neurosurgery 08/17/21 Ramu Solano MD [address] [place] [address] [place] [address] Specialist Internal Medicine 08/23/21 Sara Rodriguez NP [address] [place] [address] [address] [place] [address] Nurse Practitioner Cardiology 09/20/21 Peter Benavides PA-C [address] [facility] [address] [place] [address] Specialist Neurosurgery 12/07/21 Tierra Han NP [address] [place] [address] Cardiology 07/14/24 documented as of this encounter
--- OUTSIDE RECORDS SUMMARY | 2025-07-09 12:23 | XMS_ITS | Encounter Summary ---
Author Organization [facility] Address [address] [place] [address] Care Team Providers Care Mortgage Advisor Name Role Phone Geo Avendano MD Primary Care Provider Cheko Jaramillo MD Unavailable [phone] Mitchell Tapia MD, PHD Unavailable Unava Ramu Blackwell MD Unavailable Unavailabl e Sara Rodriguez MILLER HELPER Unavailable [phone] Peter Benavides PA-C Unavailable [phone] Ronald Desai Primary Care Provider [phone] Ronald Desai Primary Care Provider [phone] Tierra Han MILLER HELPER Unavailable [phone] Reason for Visit * Reason Comments E-prescribe Rx Request Encounter Details Date Type Department Care Team Description 01/06/2019 Refill Adult Medicine [address] [address] Geo Avendano MD E-prescribe Rx Request Social [...] encounter Miscellaneous Notes * Telephone Encounter - Briana Watts L.P.N. - 01/07/2019 7:55 AM EDT This medication was never prescribed by Physiatry dept Always prescribed by PCP office This request is referred back to his PCP office Thank you Briana * Telephone Encounter - Emely Diaz M.A. - 01/07/2019 7:27 AM EDT Lab Results Component Value Date NA 142 05/26/2018 K 4.1 05/26/2018 CO2 28.0 05/26/2018 CL 99 05/26/2018 BUN 24 05/26/2018 CREAT 1.6 05/26/2018 GLU 96 05/26/2018 CA 9.6 05/26/2018 GFR 47 05/26/2018 Last rx 11/18/18 by isaac Bentley ov with Physiatry 10/2018, pending ov with Physiatry 01/2019 * Telephone Encounter - Ciarra Javed - 01/06/2019 9:10 AM EDT Patient would like script to be: E-PRESCRIBED/FAXED TO PHARMACY WHEN WAS THE PATIENT'S LAST APPOINTMENT IN ADULT MEDICINE? 10/24/18 WHEN WAS THE LAST TIME THE PATIENT SAW THEIR PCP? 10/30/18 Does patient have an upcoming appointment? (THE MEDICATION REQUESTED IS ON THE MED [...] Patients current insurance carrier is: Payor: [facility] FFS / Plan: [facility] MEDICARE PREMIUM $10 [place] / Product Type: MEDICARE [id number] documented in this encounter Plan of Treatment Not on file documented as of this encounter Visit Diagnoses Not on filedocumented in this encounter Care Teams Mortgage Advisor Relationship Specialty Start Date End Date Geo Avendano MD PCP - General 04/08/07 05/31/22 Ronald Desai [address] [place] [address] PCP - General Internal Medicine 06/01/22 07/15/22 Ronald Desai [address] [place] [address] PCP - General Internal Medicine 07/16/22 Cheko Hassan MD [address] [place] [address] [place] [address] Dump Truck Driver Cardiovascular Disease 01/12/21 Mitchell Tapia MD, PHD [address] [place] [address] [address] [place] [address] Specialist Neurosurgery 08/17/21 Ramu Solano MD [address] [place] [address] [address] [place] [address] Specialist Internal Medicine 08/23/21 Sara Rodriguez NP 2 [facility] [address] [place] [address] Nurse Practitioner Cardiology 09/20/21 Peter Benavides PA-C 175 [facility] [address] [place] [address] Specialist Neurosurgery 12/07/21 Tierra Han NP [address] [facility] [address] [place] [address] Cardiology 07/14/24 documented as of this encounter
--- OUTSIDE RECORDS SUMMARY | 2025-07-09 12:23 | XMS_ITS | Clinical Summary ---
Author Organization [facility] Address [address] [place] [address] Phone Care Team Providers Care Mechanics Handyman Name Role Phone Ronald Desai MD Primary [...] mcg inhalerIndicatio ns:Severe persistent asthma without complication (CMS/[facility] V28) Inhale 1 puff (100 mcg total) by mouth 1 (one) time each day. Rinse mouth with water after use to reduce aftertaste and incidence of candidiasis. Do not swallow. 1 each 2 05/11/20 25 026 Active DULoxetine (CYMBALTA) [address] capsule TAKE 1 CAPSULE BY MOUTH 1 TIME EACH DAY. DO NOT CRUSH OR CHEW. 90 capsule 1 06/25/20 25 Active Lactobacillus acidophilus capsule Take 1 capsule by mouth 2 (two) times a day. Abdominal bloating 60 capsule 05/17/20 25 025 DULoxetine (CYMBALTA) [address] capsule Take 1 capsule (20 mg total) by mouth 1 (one) time each day. Do not crush or chew. 30 each 1 06/03/20 25 025 Discontinued Active Problems Problem Noted [...] outlined in detailed above. He follows with electronic semiconductor processor and is due to repeat a sleep study as he has known sleep apnea which is untreated. He also has history of COPD and uses inhalers. Patient encouraged to follow-up with his electronic semiconductor processor regularly. Heart murmur 04/19/2022 Overview (12/18/2023): Last [...] 2015 Mild chronic obstructive pul monary disease ([facility] V24, [facility] V28) 03/28/2015 Overview (12/18/2023): Dr Qiu Chronic obstructive pulmonar y disease ([facility] V24, [facility] V28) 03/28/2015 Overview (07/15/2024): Dr Qiu Dysphagia 01/27/2015 Overview (12/18/2023): Seen and evalauted by Dr. Conde Dementia ([facility] V24, [facility] V28) 10/15/2012 Overview (12/18/2023): Seen with Tabitha, now on Aricept Stage 3 chronic kidney disease ([facility] V24, [facility] V28) 01/06/2012 Sleep apnea 06/01/2011 Overview (12/18/2023): [facility] Home Sleep Apnea Test: Date 11/06/2022; [...] Encounters Date Type Department Care Team Description 06/18/2025 Telephone Adult Medicine [address] [phone] Ronald Desai MD 06/10/2025 11:30 AM EDT - 06/10/2025 11:59 PM EDT Hospital Encounter [facility] Nuclear Medicine [address] [place] [address] Discharge Disposition: Home or Self Care 06/10/2025 8:14 AM EDT - 06/10/2025 11:59 PM EDT Hospital Encounter [facility] Nuclear Medicine [address] [place] [phone] Abnormal CT scan, pelvis; Elevated PSA Discharge Disposition: Home or Self Care 06/07/2025 Telephone Adult Medicine [address] [phone] Ronald Deasi MD 06/04/2025 8:15 AM EDT - 06/04/2025 11:59 PM EDT Hospital Encounter CT Scan [address] [phone] Bilateral hip pain; Abnormal x-ray of pelvis Discharge Disposition: Home or Self Care 06/03/2025 9:30 AM EDT Office Visit Adult [address] [phone] Ronald Desai MD Bilateral hip pain (Primary Dx); Abnormal x-ray of pelvis; Fibromyalgia; Abnormal CT scan, pelvis; Elevated PSA 06/02/2025 Telephone Adult Medicine [address] [phone] Ronald Desai MD 05/17/2025 9:20 AM EDT Office Visit Gastroenterology - [place] [facility] 175 [facility] 200 [place] [phone] Siomara Tucker, RAMAN Abdominal bloating (Primary Dx); Gastroesophageal reflux disease without esophagitis 05/17/2025 8:30 AM EDT Office Visit Orthopedic Surgery [facility] [address] [facility] 250 [place] [phone] David Beltre DPM Plantar fascial fibromatosis (Primary Dx); Lumbar pain; Difficulty walking; Pain in toe of left foot; Pain in toe of right foot; Dermatophytosis of nail; Hammer toe of left foot; Ingrowing nail; Acquired hammer toe of right foot 05/11/2025 8:55 AM EDT Office Visit Pulmonology - [place] 175 [facility] [address] [place] [phone] Suzie Bates NP Severe persistent asthma without complication ([facility] V28) (Primary Dx); Chronic obstructive pulmonary disease, unspecified COPD type ([facility] V24, CMS/[facility] V28); Obstructive sleep apnea syndrome; Cognitive impairment; Obesity (BMI 30-39.9) 05/06/2025 11:00 AM EDT Office Visit Adult Medicine [address] [phone] Ronald Desai MD Primary hypertension (Primary Dx); Mixed hyperlipidemia; Chronic obstructive pulmonary disease, unspecified COPD type ([facility] V24, CMS/HCC V28); NEO (obstructive sleep apnea); Gastroesophageal reflux disease without esophagitis; Stage 3a chronic kidney disease ([facility] V24, CMS/HCC V28); BPH with elevated PSA; Lumbar radiculopathy; S/P cervical spinal fusion; Muscle twitching; Cognitive impairment 05/06/2025 9:45 AM EDT Office Visit Orthopedics [address] [phone] Casey Bragg PA Bilateral hip pain (Primary Dx); Neck pain 05/06/[address] [phone] Casey Bragg PA 04/14/2025 10:00 AM EDT Ancillary Procedure [facility] [address] [place] [phone] Claudication ([facility] V24) 04/14/2025 Telephone Vascular Surgery [address] [address] Elvira Mart MD from Last 3 Months Immunizations Name Administration [...] HISTORICAL SHOULDER SURGERY NASAL SEPTUM SURGERY PROCEDURE: ND SEPTOPLASTY/SUBMUCOUS RESECJ W/WO CARTILAGE GRF UPPER GASTROINTESTINAL ENDOSCOPY 07/28/2009 PROCEDURE: ND UPPER GI ENDOSCOPY PERFORMED; COMMENT: R/o Laurent's [...] obstructive pu lmonary disease) ([facility] V[facility], [facility] V28) DX:COPD (chronic o bstructive pulmonary disease) ([facility]) Hypertension DX:Hypertension Kidney damage DX:Kidney damage Dementia ([facility] V24, [facility] V28) DX:Dementia ([facility]) Sleep apnea DX:Sleep apnea Esophageal reflux DX:Esophageal reflux Disorder DX:Disorder Cervicalgia DX:Cervicalgia; COMMENT: s/p Dr. Ellis , bone spur Allergic rhinitis, cause unspecified 05/06/2007 DX:Allergic rhinitis, cause unspecified Nevus, non-neoplastic DX:Nevus, non-neoplastic Esophageal reflux DX:Esophageal reflux Mild chronic obstructive pul monary disease ([facility] V[facility], [facility] V28) 03/28/2015 DX:Mild chronic obs tructive pulmonary disease (HCC) Abnormality of gait 07/04/2007 DX:Abnormali ty of gait Adjustment disorder with mix ed anxiety and depressed mood 03/29/2010 DX:Adjustment disorder with mixed anxiety and depressed mood CKD (chronic kidney disease) stage 3, GFR 30-59 ml/min ([facility] V24, [facility] V28) 01/06/2012 DX:CKD (chronic kidney disea se) stage 3, GFR 30-59 ml/min ([facility]) Cognitive disorder 02/07/2011 DX:Cognitive disorder; COMMENT: Seen with Justin Lu 01/2011: Dementia ([facility] V[facility], [facility] V28) 10/15/2012 DX:Dementia ([facility]); COMMENT: Seen with Taibtha, now on Aricept Displacement of lumbar inter [...] Care Team (Late st Contact Info) Description 07/19/2025 8:30 AM EDT Office Visit Orthopedic Surgery - [place] [address] [facility] [address] [place] [phone] David Beltre, DPM 175 [facility] 250 [place] [phone] 07/27/2025 3:15 PM EDT Office Visit [place]phrology - [place] [address] [place] [address] Marcelo Roach MD [address] [place] [phone] 08/03/2025 10:30 AM EDT Office Visit Vascular Surgery - [place] [address] [place] [address] Melyssa Navarrete PA [address] [place] [address] 08/11/2025 8:30 AM EDT Office Visit Pulmonology - [place] [address] [facility] [address] [place] [phone] Suzie Bates, RAMAN [address] [place] [phone] 09/13/2025 3:00 PM EST Office Visit Adult Medicine [address] [phone] Ronald Desai MD [address] [place] [address] 09/22/2025 8:30 AM EST Office Visit [address] [phone] Magui Pang PA [address] [place] [address] Health Maintenance Due Date Last Done Comments [...] 09/22/2022 Social Influencers of Health Screening 09/22/2022 Depression Screening 10/14/2024 COVID-19 Vaccine ( season) 2025 10/28/2023, 08/24/2022, 11/04/2021, Additional history exists Influenza Vaccine (#1) 2025 , 07/16/2022, 07/07/2021, [...] Procedure Name Priority Date/Time Associated Diagnosis Comments NM BONE/JOINT SCAN WHOLE BODY Routine 06/10/2025 12:[address] scan, pelvis Elevated PSA CT PELVIS WO CONTRAST Routine 06/04/2025 8:31 AM EDT Bilateral hip pain Abnormal x-ray of pelvis VAS US DUPLEX LOWER EXT ARTERIES BILAT WITH GIANNI Routine 04/14/2025 10:58 AM EDT Claudication (CMS/HCC V24) COMPREHENSIVE METABOLIC PANEL Routine 10/27/2024 9:11 [...] Recently Relevant to Health Maintenance Results * NM Bone/Joint Scan Whole Body (06/10/2025 12:22 PM EDT) Anatomical Region Laterality Modality Nuclear Medicine 06/17/2025 2:49 PM EDT Impressions 06/17/2025 2:53 PM EDT Pattern of activity suggestive of degenerative and posttraumatic changes. No findings to suggest osseous metastatic disease. If there is high clinical concern for metastatic disease from prostate carcinoma consider PSMA PET CT scan. -------- FINAL REPORT -------- Dictated By: Carole Gorman Dictated Date: 06/17/2025 14:49 ET Assigned Physician: Carole Gorman Reviewed and Electronically Signed By: Carole Gorman Signed Date: 06/17/2025 14:53 ET Workstation ID: [id number] Transcribed By: Self Edit Transcribed Date: 06/17/2025 14:49 ET Narrative 06/17/2025 2:53 PM EDT INDICATION: Sclerotic lesions on CT scan, elevated PSA TECHNIQUE: Whole body bone scan was obtained after the uneventful intravenous administration of 25.2 mCi of technetium-99m MDP intravenously. Whole-body images obtained as well as oblique imaging of the pelvis, neck and upper chest as well as lateral imaging of the head and neck. COMPARISON: No prior relevant studies available for comparison. FINDINGS: Uptake noted scattered along mid to lower thoracic costovertebral junctions, likely degenerative. Uptake bilaterally at the L5-S1 level, likely degenerative. Focal uptake along the proximal right fibula likely related to posttraumatic change. Uptake within the right shoulder along the AC joint likely represents degenerative changes. Oblique imaging of the pelvis demonstrates no abnormal focal activity. Symmetric physiological activity noted along the SI joints. Procedure Note Carole Gorman MD - 06/17/2025 INDICATION: Sclerotic lesions on CT scan, elevated PSA TECHNIQUE: Whole body bone scan was obtained after the uneventfulintravenous administration of 25.2 mCi of technetium-99m MDPintravenously. Whole-body images obtained as well as oblique imaging of the pelvis, neckand upper chest as well as lateral imaging of the head and neck. COMPARISON: No prior relevant studies available for comparison. FINDINGS: Uptake noted scattered along mid to lower thoraciccostovertebral junctions, likely degenerative. Uptake bilaterally at the L5-S1 level, likely degenerative. Focal uptake along the proximal right fibula likely related toposttraumatic change. Uptake within the right shoulder along the AC joint likely representsdegenerative changes. Oblique imaging of the pelvis demonstrates no abnormal focal activity. Symmetric physiological activity noted along the SI joints. IMPRESSION: Pattern of activity suggestive of degenerative and posttraumatic changes.No findings to suggest osseous metastatic disease. If there is highclinical concern for metastatic disease from prostate carcinoma considerPSMA PET CT scan. -------- FINAL REPORT -------- Dictated By: Carole Gorman Dictated Date: 06/17/2025 14:49 ET Assigned Physician: Carole Gorman Reviewed and Electronically Signed By: Carole Gorman Signed Date: 06/17/2025 14:53 ET Workstation ID: [id number] Transcribed By: Self Edit Transcribed Date: 06/17/2025 14:49 ET us Ronald Desai MD IM NM PROCEDURES Final Res ult * CT Pelvis wo Contrast (06/04/2025 8:31 [...] Signed Date: 06/04/2025 14:22 ET Workstation ID: [id number] Transcribed By: Self Edit Transcribed Date: 06/04/2025 [...] Signed Date: 06/04/2025 14:22 ET Workstation ID: [id number] Transcribed By: Self Edit Transcribed Date: 06/04/2025 [...] PSV 64 cm/s CV VAS LAB Left HOG WORKER prox sys PSV 70 cm/s CV VAS [...] PSV 83 cm/s CV VAS LAB Right HOG WORKER prox sys PSV 74 cm/s CV VAS [...] The mid peroneal artery has biphasic flow. Application Designer Details A luciano scale, color and doppler [...] Desai MD LAB BLOOD ORDERABLES Final Result [facility] [address] [place] [address], [place] [phone] * (ABNORMAL) Comprehensive metabolic panel (10/27/2024 9:11 [...] 73m2 LAB CHEMISTRY METHOD 10/27/2024 3:28 PM EST [facility] Comment:Calculation based on the Chronic Kidney [...] 3:28 PM [facility] Total Bilirubin 0.5 0.0 - 1.4 mg/dL LAB CHEMISTRY METHOD 10/27/2024 3:28 PM [facility] Blood Venous blood specimen / Unknown Venipuncture / Unknown 10/27/2024 9:11 AM EST 10/27/2024 9:11 AM EST Ronald Desai MD LAB BLOOD ORDERABLES Final Result [facility] [address] [place] [address], * Colonoscopy (04/03/2024) Colonoscopy no interpretation , abstracted Anatomical Region Laterality Modality Other Historical Provider HEALTH MAINTENANCE Final Result * Hepatitis C Screening (06/09/2007) Hepatitis C Screening abstracted us Historical Provider HEALTH MAINTENANCE Final Result from Last 3 Months or Most Recently Relevant to Health Maintenance Insurance [employer] [place] [employer] Advance Directives Documents on File Type Date Recorded Patient Transit Bus Operator Expl anation Health Care Decision (hx) [...] (hx) 09/03/2019 AD SERNA DIRECTIVE Care Teams Mechanics Handyman Relationship Specialty Start Date End Date Ronald Desai MD [address] [place] [address] PCP - General Internal Medicine 05/17/25
--- OUTSIDE RECORDS SUMMARY | 2025-07-09 12:23 | XMS_ITS | Encounter Summary ---
Author Organization [facility] Address [address] [place] [address] Care Team Providers Care Emergency Department Nurse Name Role Phone Geo Avendano MD Primary Care Provider Cheko Jaramillo MD Unavailable [phone] Mitchell Tapia MD, PHD Unavailable Unava Ramu Blackwell MD Unavailable Unavailabl e Sara Rodriguez IT PROGRAMMER Unavailable [phone] Peter Benavides PA-C Unavailable [phone] Ronald Desai Primary Care Provider [phone] Ronald Desai Primary Care Provider [phone] Tierra Han IT PROGRAMMER Unavailable [phone] Encounter Details Date Type Department Care Team Description 11/03/2014 Priming Powder Premix Blender Report Medical Records [address] [place] [address] Jacob Conde MD Social History Tobacco Use [...] on filedocumented in this encounter Care Teams Emergency Department Nurse Relationship Specialty Start Date End Date Geo Avendano MD PCP - General 04/08/07 [facility]/31/22 [facility] [address] [place] [address] PCP - General Internal Medicine 06/01/22 07/15/22 [facility] [address] [place] [address] PCP - General Internal Medicine 07/16/22 Cheko Hassan MD [address] [place] [address] [place] [address] Judge Cardiovascular Disease 01/12/21 Mitchell Tapia MD, PHD [address] [place] [address] [place] [address] Specialist Neurosurgery 08/17/21 Ramu Solano MD [address] [place] [address] [place] [address] Specialist Internal Medicine 08/23/21 Sara Rodriguez NP [address] [place] [address] [place] [address] Nurse Practitioner Cardiology 09/20/21 Peter Benavides PA-C [address] [facility] [address] [place] [address] Specialist Neurosurgery 12/07/21 Tierra Han NP [address] [place] [address] Cardiology 07/14/24 documented as of this encounter
--- OUTSIDE RECORDS SUMMARY | 2025-07-09 12:23 | XMS_ITS | Encounter Summary ---
Author Organization [facility] Address [address] [place] [address] Care Team Providers Care Biological Sciences Professor Name Role Phone Geo Avendano MD Primary Care Provider Cheko Jaramillo MD Unavailable [phone] Mitchell Tapia MD, PHD Unavailable Unava Ramu Blackwell MD Unavailable Unavailabl e Sara Rodriguez CLERICAL METHODS ANALYST Unavailable [phone] Peter Benavides PA-C Unavailable [phone] Ronald Desai Primary Care Provider [phone] Ronald Desai Primary Care Provider [phone] Tierra Han CLERICAL METHODS ANALYST Unavailable [phone] Encounter Details Date Type Department Care Team Description 05/13/2019 Telephone Adult Medicine [address] [phone] Geo Avendano MD Social History Tobacco Use [...] encounter Miscellaneous Notes * Telephone Encounter - Isabel Guzmán M.A. - 05/13/2019 1:[address] Pace Calling in regards to status, Spoke with Gissel stanley, states this is being handled documented in this encounter Plan of Treatment Not on file documented as of this encounter Visit Diagnoses Not on filedocumented in this encounter Care Teams Biological Sciences Professor Relationship Specialty Start Date End Date Geo Avendano MD PCP - General 04/08/07 05/31/22 [facility] [address] [place] [address] PCP - General Internal Medicine 06/01/22 07/15/22 [facility] [address] [place] [address] PCP - General Internal Medicine 07/16/22 Cheko Hassan MD [address] [place] [address] [address] [place] [address] Network Operations Project Manager Cardiovascular Disease 01/12/21 Mitchell Tapia MD, PHD [address] [place] [address] [place] [address] Specialist Neurosurgery 08/17/21 Ramu Solano MD [address] [place] [address] [place] [address] Specialist Internal Medicine 08/23/21 Sara Rodriguez, RAMAN [address] [facility] [address] [place] [address] Nurse Practitioner Cardiology 09/20/21 Peter Benavides PA-C [address] [place] [address] [address] [place] [address] Specialist Neurosurgery 12/07/21 Tierra Han, RAMAN [address] [facility] [address] [place] [address] Cardiology 07/14/24 documented as of this encounter
--- OUTSIDE RECORDS SUMMARY | 2025-07-09 12:23 | XMS_ITS | Encounter Summary ---
Author Organization [facility] Address [address] [place] [address] Care Team Providers Care Identity Access Management Architect Name Role Phone Geo Avendano MD Primary Care Provider Cheko Jaramillo MD Unavailable [phone] Mitchell Tapia MD, PHD Unavailable Unava Ramu Blackwell MD Unavailable Unavailabl e Sara Rodriguez NP Unavailable [phone] Peter Benavides PA-C Unavailable Ronald Desai Primary Care Provider [phone] Ronald Desai Primary Care Provider [phone] Tierra Han SQL PROGRAMMER Unavailable Encounter Details Date Type Department Care Team Description 08/06/2014 Oracle Forms Developer Report Medical Records [address] [place] [address] Robby Blevins Social History Tobacco Use Types [...] on filedocumented in this encounter Care Teams Identity Access Management Architect Relationship Specialty Start Date End Date Geo Avendano MD PCP - General 04/08/07 05/31/22 [facility] [address] [place] [address] PCP - General Internal Medicine 06/01/22 07/15/22 [facility] [address] [place] [address] PCP - General Internal Medicine 07/16/22 Cheko Hassan MD [address] [place] [address] [place] [address] Swatcher Cardiovascular Disease 01/12/21 Mitchell Tapia MD, PHD [address] [place] [address] [address] [place] [address] Specialist Neurosurgery 08/17/21 Ramu Solano MD [address] [place] [address] [place] [address] Specialist Internal Medicine 08/23/21 Sara Rodriguez NP [address] [place] [address] [address] [place] [address] Nurse Practitioner Cardiology 09/20/21 Peter Benavides PA-C [address] [facility] [address] [place] [address] Specialist Neurosurgery 12/07/21 Tierra Han NP [address] [place] [address] Cardiology 07/14/24 documented as of this encounter
--- OUTSIDE RECORDS SUMMARY | 2025-07-09 12:23 | XMS_ITS | Encounter Summary ---
Author Organization [facility] Address [address] [place] [address] Care Team Providers Care Arson And Bomb Investigator Name Role Phone Geo Avendano MD Primary Care Provider Cheko Jaramillo MD Unavailable [phone] Mitchell Tapia MD, PHD Unavailable Unava Ramu Blackwell MD Unavailable Unavailabl e Sara Rodriguez DIRECT SUPPORT STAFF Unavailable [phone] Peter Benavides PA-C Unavailable [phone] Ronald Desai Primary Care Provider [phone] Ronald Desai Primary Care Provider [phone] Tierra Han DIRECT SUPPORT STAFF Unavailable [phone] Encounter Details Date Type Department Care Team Description 07/06/2014 Drupal Programmer Report Medical Records [address] [place] [address] Kurtis Pantoja MD Social History Tobacco Use [...] on filedocumented in this encounter Care Teams Arson And Bomb Investigator Relationship Specialty Start Date End Date Geo Avendano MD PCP - General 04/08/07 05/31/22 [facility] [address] [place] [address] PCP - General Internal Medicine 06/01/22 07/15/22 [facility] [address] [place] [address] PCP - General Internal Medicine 07/16/22 Cheko Hassan MD [address] [place] [address] [place] [address] Coutierier Cardiovascular Disease 01/12/21 Mitchell Tapia MD, PHD [address] [place] [address] [place] [address] Specialist Neurosurgery 08/17/21 Ramu Solano MD [address] [place] [address] [place] [address] Specialist Internal Medicine 08/23/21 Sara Rodriguez NP [address] [place] [address] [place] [address] Nurse Practitioner Cardiology 09/20/21 Peter Benavides PA-C [address] [facility] [address] [place] [address] Specialist Neurosurgery 12/07/21 Tierra Han NP [address] [place] [address] Cardiology 07/14/24 documented as of this encounter
--- OUTSIDE RECORDS SUMMARY | 2025-07-09 12:23 | XMS_ITS | Encounter Summary ---
Author Organization [facility] Address [address] [place] [address] Care Team Providers Care Learning Technologies Specialist Name Role Phone Cheko Hassan MD Unavailable [phone] Mitchell Tapia MD, PHD Unavailable Unava ilRamu Reid MD Unavailable Unavailabl e Sara Rodriguez ASPHALT PAVING FOREMAN Unavailable [phone] Peter Benavides PA-C Unavailable [phone] Ronald Desai Primary Care Provider [phone] Tierra Han NP Unavailable [phone] Reason for Visit * Reason Onset Date Comments Medical Records 04/28/2024 Encounter Details Date Type Department Care Team Description 04/28/2024 Telephone Cardio PVC [facility] [address] [place] [address] [address] [place] [address] Cheko Hassan MD [address] [place] [address] [address] [place], [place] [id number] Medical Records Social History Tobacco Use Types Packs/Day Years [...] encounter Miscellaneous Notes * Telephone Encounter - Aylin Pacheco - 04/29/2024 8:40 AM EDT Last OV and EKG was sent to [facility]. Fax Confirmation Received. * Telephone Encounter - Sweta Jacob - 04/28/2024 3:21 PM EDT Medical Records Request Caller: Taya Calling from: [facility] Requesting provider's first & last name: Dr Tapia Direct Phone Number or Ext: [phone] What records are being requested: AMANDA notes & EKG How far back: 06/12/23 What is it for: up coming surgery Needed by: Prior to 07/29/24 documented in this encounter Plan of Treatment Not on file documented as of this encounter Visit Diagnoses Not on filedocumented in this encounter Care Teams Learning Technologies Specialist Relationship Specialty Start Date End Date Ronald Desai [address] [place] [address] PCP - General Internal Medicine 07/16/22 Cheko Hassan MD [address] [place] [address] [address] [place], [place] [id number] Senior Cost Accountant Cardiovascular Disease 01/12/21 Mitchell Tapia MD, PHD [address] [place] [address] Specialist Neurosurgery 08/17/21 Ramu Solano MD [address] [place] [address] DRIVE [address] [place] [address] Specialist Internal Medicine 08/23/21 Sara Rodriguez NP [address] [facility] [address] [place] [address] Nurse Practitioner Cardiology 09/20/21 Peter Benavides PA-C [address] [place] [address] [address] [place] [address] Specialist Neurosurgery 12/07/21 Tierra Han, RAMAN [address] [place] [address] Cardiology 07/14/24 documented as of this encounter
--- OUTSIDE RECORDS SUMMARY | 2025-07-09 12:23 | XMS_ITS | Encounter Summary ---
Author Organization [facility] Address [address] [place] [address] Care Team Providers Care Temperature Regulator Pyrometer Name Role Phone Geo Avendano MD Primary Care Provider Cheko Jaramillo MD Unavailable [phone] Mitchell Tapia MD, PHD Unavailable Unava Ramu Blackwell MD Unavailable Unavailabl e Sara Rodriguez REGISTERED NURSE CARDIAC Unavailable [phone] Peter Benavides PA-C Unavailable [phone] Ronald Desai Primary Care Provider [phone] Ronald Desai Primary Care Provider [phone] Tierra Han REGISTERED NURSE CARDIAC Unavailable [phone] Encounter Details Date Type Department Care Team Description 02/05/2022 SCAN [facility] Neurosurgery [place] [address] [place] [address] Mitchell Tapia MD, PHD Social [...] on filedocumented in this encounter Care Teams Temperature Regulator Pyrometer Relationship Specialty Start Date End Date Geo Avendano MD PCP - General 04/08/07 05/31/22 Ronald Desai [address] [place] [address] PCP - General Internal Medicine 06/01/22 07/15/22 Ronald Desai [address] [place] [address] PCP - General Internal Medicine 07/16/22 Cheko Hassan MD [address] [place] [address] [place] [address] Bleacher Groundwood Pulp Cardiovascular Disease 01/12/21 Mitchell Tapia MD, PHD [address] [place] [address] [place] [address] Specialist Neurosurgery 08/17/21 Ramu Solano MD [address] [place] [address] [place] [address] Specialist Internal Medicine 08/23/21 Sara Rodriguez, RAMAN [address] [place] [address] [place] [address] Nurse Practitioner Cardiology 09/20/21 Peter Benavides PA-C [address] [facility] [address] [place] [address] Specialist Neurosurgery 12/07/21 Tierra Han NP [address] [place] [address] Cardiology 07/14/24 documented as of this encounter
--- OUTSIDE RECORDS SUMMARY | 2025-07-09 12:23 | XMS_ITS | Encounter Summary ---
Author Organization [facility] Address [address] [place] [address] Care Team Providers Care Plastic Jig And Fixture Builder Name Role Phone Geo Avendano MD Primary Care Provider Cheko Jaramillo MD Unavailable [phone] Mitchell Tapia MD, PHD Unavailable Unava Ramu Blackwell MD Unavailable Unavailabl e Sara Rodriguez DITCH TENDER Unavailable [phone] Peter Benavides PA-C Unavailable [phone] Ronald Desai Primary Care Provider [phone] Ronald Desai Primary Care Provider [phone] Tierra Han DITCH TENDER Unavailable [phone] Reason for Visit * Reason Comments E-prescribe Rx Request Encounter Details Date Type Department Care Team Description 11/16/2018 Refill Adult Medicine [address] [address] Geo Avendano MD E-prescribe Rx Request Social [...] encounter Miscellaneous Notes * Telephone Encounter - Ella Wing - 11/17/2018 11:03 AM EST Patient would like script to be: E-PRESCRIBED/FAXED TO PHARMACY WHEN WAS THE PATIENT'S LAST APPOINTMENT IN ADULT MEDICINE? 10/24/18 WHEN WAS THE LAST TIME THE PATIENT SAW THEIR PCP? 08/12/18 Does patient have an upcoming appointment? No will call to book (THE MEDICATION REQUESTED IS ON THE MED [...] [facility] FFS / Plan: [facility] MEDICARE PREMIUM $10 [place] / Product Type: MEDICARE [id number] documented in this encounter Plan of Treatment Not on file documented as of this encounter Visit Diagnoses Not on filedocumented in this encounter Care Teams Plastic Jig And Fixture Builder Relationship Specialty Start Date End Date Geo Avendano MD PCP - General 04/08/07 05/31/[facility] [address] [place] [address] PCP - General Internal Medicine 06/01/22 07/15/[address] [place] [address] PCP - General Internal Medicine 07/16/22 Cheko Hassan MD [address] [place] [address] DR[address] [place] [address] Wood Router Hand Cardiovascular Disease 01/12/21 Mitchell Tapia MD, PHD [address] [place] [address] [address] [place] [address] Specialist Neurosurgery 08/17/21 Ramu Solano MD [address] [place] [address] DR[address] [place] [address] Specialist Internal Medicine 08/23/21 Sara Rodriguez NP [address] [place] [address] [address] [place] [address] Nurse Practitioner Cardiology 09/20/21 Peter Benavides PA-C [address] [place] [address] [address] [place] [address] Specialist Neurosurgery 12/07/21 Tierra Han NP [address] [facility] [address] [place] [address] Cardiology 07/14/24 documented as of this encounter
--- OUTSIDE RECORDS SUMMARY | 2025-07-09 12:23 | XMS_ITS | Encounter Summary ---
Author Organization [facility] Address [address] [place] [address] Care Team Providers Care Creative Writer Name Role Phone Geo Avendano MD Primary Care Provider Cheko Jaramillo MD Unavailable [phone] Mitchell Tapia MD, PHD Unavailable Unava Ramu Blackwell MD Unavailable Unavailabl e Sara Rodriguez LEAD SLOT TECHNICIAN Unavailable [phone] Peter Benavides PA-C Unavailable [phone] Ronald Desai Primary Care Provider [phone] Ronald Desai Primary Care Provider [phone] Tierra Han LEAD SLOT TECHNICIAN Unavailable [phone] Reason for Visit * Reason Onset Date Comments Blood Pressure Elevated 03/13/2022 High B/P Encounter Details Date Type Department Care Team Description 03/13/2022 Telephone Cardio PVC [facility] [address] [facility] [place] [address] Sara Rodriguez NP [address] [place] [address] [address] [place] [address] Blood Pressure Elevated (High B/P) Social History Tobacco Use Types Packs/Day Years Used Date Smoking Tobacco: Never Smokeless Tobacco: Never Alcohol Use Standard Drinks/Week Comments No 0 (1 standard drink = 0.6 oz pur e alcohol) Financial Resource Strain Answer Date R ecorded How hard is it for you to pa shadi for the very basics like food, housing, [...] suspected to have Coronavirus/COVID-19? No / Unsure 02/20/2022 3:25 PM EDT documented as of this encounter Miscellaneous Notes * Telephone Encounter - Cheko Hassan MD - 03/13/2022 2:47 PM EDT PT should keep followup appointment with PCP argelia tan on 04/19 * Telephone Encounter - Jennifer Sheth C.M.A. - 03/13/2022 1:50 PM EDT JUDI___I called and spoke with Pete first and tried to get some info regarding his bp readings , however he just said he was fine and no sx's and I reminded him of the appointment he has with us on 04/19/22 at 10:10am--he is advised to bring his blood pressure cuff with him to his appt--we do not havea hypertension diagnosis on file with us or the PCP--seems this is something new--he is going to becalled by PCP office to make a follow up appt and visit the situation--I called Millie the Registered nurse who has charge of his case, she tells me that he had some elevated bp readings on the of 198/118 and 182/83--at that time he did tell her he was having some sob, today he reported bp readings of 149/71 and 131/73, however he tells her he has a hard time reading the bp monitor and has just ordered one that speaks the results outloud he does not have any sx's today--during the conversation he did tell the nurse that he was prescribed a new med for which he does not know the name of by his neurologist for memory issues--the medication was in his car and he has not yet started it. Next appt with us is 04/19/22---would you like a sooner appt or is this ok? * Telephone Encounter - Payal Tran - 03/13/2022 1:38 PM EDT Received a call from Millie, registered nurse with [employer]. Millie stated that ryannd been in contact with the patient and the primary care doctor. The patient has been having elevated blood pressure close to 180, 190. Millie requested a nurse call the patient back at [phone] Millie can be reached , ext [phone] documented in this encounter Plan of Treatment Not on file documented as of this encounter Visit Diagnoses Not on filedocumented in this encounter Care Teams Creative Writer Relationship Specialty Start Date End Date Geo Avendano MD PCP - General 04/08/07 05/31/22 [place] [address] PCP - General Internal Medicine 06/01/22 07/15/22 [place] [address] PCP - General Internal Medicine 07/16/22 Cheko Hassan MD [address] [facility] [address] [facility] [address] [place] [address] Er Physician Cardiovascular Disease 01/12/21 Mitchell Tapia MD, PHD 2 [facility] [address] [place] [address] Specialist Neurosurgery 08/17/21 Ramu Solano MD [address] [place] [address] [address] [place] [address] Specialist Internal Medicine 08/23/21 Sara Rodriguez NP [address] [place] [address] [address] [place] [address] Nurse Practitioner Cardiology 09/20/21 Peter Benavides PA-C [address] [place] [address] [address] [place] [address] Specialist Neurosurgery 12/07/21 Tierra Han NP [address] [place] [address] [address] [place] [address] Cardiology 07/14/24 documented as of this encounter
--- OUTSIDE RECORDS SUMMARY | 2025-07-09 12:23 | XMS_ITS | Encounter Summary ---
Author Organization [facility] Address [address] [place] [address] Care Team Providers Care Plastic Printer Name Role Phone Geo Avendano MD Primary Care Provider Cheko Jaramillo MD Unavailable [phone] Mitchell Tapia MD, PHD Unavailable Unava Ramu Blackwell MD Unavailable Unavailabl e Sara Rodriguez SEISMOLOGY TECHNICAL OFFICER Unavailable [phone] Peter Benavides PA-C Unavailable [phone] Ronald Desai Primary Care Provider [phone] Ronald Desai Primary Care Provider [phone] Tierra Han SEISMOLOGY TECHNICAL OFFICER Unavailable [phone] Encounter Details Date Type Department Care Team Description 09/14/2015 Licensed Occupational Therapy Assistant Report Medical Records [address] [place] [address] Terrence Johnson Social History Tobacco Use Types Packs/Day Years [...] filedocumented in this encounter Care Teams Plastic Printer Relationship Specialty Start Date End Date Geo Avendano MD PCP - General 04/08/07 05/31/22 [facility] [address] [place] [address] PCP - General Internal Medicine 06/01/22 07/15/22 [facility] [address] [place] [address] PCP - General Internal Medicine 07/16/22 Cheko Hassan MD [address] [place] [address] [place] [address] Charger Operator Cardiovascular Disease 01/12/21 Mitchell Tapia MD, PHD [address] [place] [address] [place] [address] Specialist Neurosurgery 08/17/21 Ramu Solano MD [address] [place] [address] [place] [address] Specialist Internal Medicine 08/23/21 Sara Rodriguez NP [address] [place] [address] Nurse Practitioner Cardiology 09/20/21 Peter Benavides PA-C [address] [facility] [address] [place] [address] Specialist Neurosurgery 12/07/21 Tierra Han NP [address] [place], [place] [address] Cardiology 07/14/24 documented as of this encounter
--- OUTSIDE RECORDS SUMMARY | 2025-07-09 12:23 | XMS_ITS | Encounter Summary ---
Author Organization [facility] Address [address] [place] [address] Care Team Providers Care Elementary School Director Name Role Phone Ronald Desai MD Primary Care Provider Encounter Details Date Type Department Care Team (Late Contact Info) Description 08/21/2024 Lab Requisition [facility] - Main Lab [address] [facility] [place] [phone] Rajeev Diaz MD [address] [place] [address] Dysphagia, unspecified Social History Tobacco Use Types [...] Department Care Team (Late Contact Info) Description 07/19/2025 8:30 AM EDT Office Visit Orthopedic Surgery - [place] [address] [phone] David Beltre, DPM [address] [phone] 07/27/2025 3:15 PM EDT Office Visit Nephrology [place] [address] [place] [address] Mracelo Roach MD [address] [place] [address] 08/03/2025 10:30 AM EDT Office Visit Vascular Surgery - [place] [address] [place] [address] Melyssa Navarrete PA [address] [place] [phone] 08/11/2025 8:30 AM EDT Office Visit Pulmonology - [place] [address] [place] [phone] Suzie Bates NP [address] [place] [phone] 09/13/2025 3:00 PM EST Office Visit Adult Medicine [address] [phone] Ronald Desai MD [address] [place] [address] 09/22/2025 8:30 AM EST Office Visit Adult [address] [phone] Magui Pang PA [address] [place] [address] documented as of this encounter Visit Diagnoses Diagnosis Dysphagia, unspecified documented in this encounter Additional Health Concerns Infection Onset Date Last Indicated Resolved Time Respiratory Rule-Out 11/19/2024 11/19/2024 025 11:34 PM EST COVID-19 Rule-Out 11/19/2024 11/19/2024 11/19/2024 11:34 PM EST documented as of this encounter Care Teams Elementary School Director Relationship Specialty Start Date End Date Ronald Desai MD [address] [place] [address] PCP - General Internal Medicine 05/17/25 documented as of this encounter
--- OUTSIDE RECORDS SUMMARY | 2025-07-09 12:23 | XMS_ITS | Encounter Summary ---
Author Organization [facility] Address [address] [place] [address] Care Team Providers Care Nutritional Services Cook Name Role Phone Cheko Hassan MD Unavailable [phone] Mitchell Tapia MD, PHD Unavailable Unava ilable Ramu Solano MD Unavailable Unavailabl e Sara Rodriguez CROSS TIE CUTTER Unavailable [phone] Peter Benavides PA-C Unavailable [phone] Ronald Desai Primary Care Provider [phone] Tierra Han NP Unavailable [phone] Encounter Details Date Type Department Care Team Description 03/06/2024 One Piece Expansion Maker Hand Report Medical Records [address] [place] [address] Mitchell Tapia MD, PHD Social History Tobacco [...] on filedocumented in this encounter Care Teams Nutritional Services Cook Relationship Specialty Start Date End Date Ronald Desai Hatt[address] [place] [address] PCP - General Internal Medicine 07/16/22 Cheko Hassan MD [address] [place] [address] DRIVE [address] [place] [address] Icer Machine Operator Cardiovascular Disease 01/12/21 Mitchell Tapia MD, PHD [address] [place] [address] [address] [place] [address] Specialist Neurosurgery 08/17/21 Ramu Solano MD [address] [place] [address] [address] [place] [address] Specialist Internal Medicine 08/23/21 Sara Rodriguez, RAMAN [address] [place] [address] [place] [address] Nurse Practitioner Cardiology 09/20/21 Peter Benavides PA-C [address] [facility] [address] [place] [address] Specialist Neurosurgery 12/07/21 Tierra Han NP [address] [place] [address] [address] [place] [address] Cardiology 07/14/24 documented as of this encounter
--- OUTSIDE RECORDS SUMMARY | 2025-07-09 12:23 | XMS_ITS | Encounter Summary ---
Author Organization [facility] Address [address] [place] [address] Care Team Providers Care Food Cashier Name Role Phone Geo Avendano MD Primary Care Provider Cheko Jaramillo MD Unavailable [phone] Mitchell Tapia MD, PHD Unavailable Unava Ramu Blackwell MD Unavailable Unavailabl e Sara Rodriguez NP Unavailable Peter Benavides PA-C Unavailable [phone] Ronald Desai Primary Care Provider [phone] Ronald Desai Primary Care Provider [phone] Tierra Han PUBLIC HEALTH OUTREACH WORKER Unavailable Encounter Details Date Type Department Care Team Description 03/23/2019 Technology Applications Engineer Report Medical Records [address] [place] [address] Valdo Reardon Social History Tobacco Use Types [...] on filedocumented in this encounter Care Teams Food Cashier Relationship Specialty Start Date End Date Geo Avendano MD PCP - General 04/08/07 05/31/22 [facility] [address] [place] [address] PCP - General Internal Medicine 06/01/22 07/15/22 [facility] [address] [place] [address] PCP - General Internal Medicine 07/16/22 Cheko Hassan MD [address] [place] [address] [place] [address] Apprentice Plant Attendant Cardiovascular Disease 01/12/21 Mitchell Tapia MD, PHD [address] [place] [address] [address] [place] [address] Specialist Neurosurgery 08/17/21 Ramu Solano MD [address] [place] [address] [place] [address] Specialist Internal Medicine 08/23/21 Sara Rodriguez NP [address] [place] [address] [address] [place] [address] Nurse Practitioner Cardiology 09/20/21 Peter Benavides PA-C [address] [facility] [address] [place] [address] Specialist Neurosurgery 12/07/21 Tierra Han NP [address] [place] [address] Cardiology 07/14/24 documented as of this encounter
--- OUTSIDE RECORDS SUMMARY | 2025-07-09 12:23 | XMS_ITS | Encounter Summary ---
Author Organization [facility] Address [address] [place] [address] Care Team Providers Care Head Waiter/Waitress Banquet Name Role Phone Geo Avendano MD Primary Care Provider Cheko Jaramillo MD Unavailable [phone] Mitchell Tapia MD, PHD Unavailable Unava Ramu Blackwell MD Unavailable Unavailabl e Sara Rodriguez BACK SHOE OPERATOR Unavailable Peter Benavides PA-C Unavailable [phone] Ronald Desai Primary Care Provider [phone] Ronald Desai Primary Care Provider [phone] Tierra Han BACK SHOE OPERATOR Unavailable [phone] Reason for Visit * Reason Comments E-prescribe Rx Request Encounter Details Date Type Department Care Team Description 01/05/2019 Refill Adult Medicine [address] [address] Geo Avendano MD E-prescribe Rx Request Social [...] encounter Miscellaneous Notes * Telephone Encounter - Ann Tomilnson - 01/05/2019 11:10 AM EDT Patient would like script to be: E-PRESCRIBED/FAXED TO PHARMACY WHEN WAS THE PATIENT'S LAST APPOINTMENT IN ADULT MEDICINE? 10-24-18 WHEN WAS THE LAST TIME THE PATIENT SAW THEIR PCP? 08-12-18 Does patient have an upcoming appointment? No[facility] for appointment due to refill request. Appt due next available (THE MEDICATION REQUESTED IS ON THE MED [...] [facility] FFS / Plan: [facility] MEDICARE PREMIUM $10 [place] / Product Type: MEDICARE [id number] documented in this encounter Plan of Treatment Not on file documented as of this encounter Visit Diagnoses Not on filedocumented in this encounter Care Teams Head Waiter/Waitress Banquet Relationship Specialty Start Date End Date Geo Avenadno MD PCP - General 04/08/07 05/31/22 [facility] [address] [place] [address] PCP - General Internal Medicine 06/01/22 07/15/22 [facility] [address] [place] [address] PCP - General Internal Medicine 07/16/22 Cheko Hassan MD [address] [place] [address] [address] [place] [address] Fuel Cell Designer Cardiovascular Disease 01/12/21 Mitchell Tapia MD, PHD [address] [place] [address] [address] [place] [address] Specialist Neurosurgery 08/17/21 Ramu Solano MD [address] [place] [address] DRIVE [address] [place] [address] Specialist Internal Medicine 08/23/21 Sara Rodriguez NP [address] [place] [address] [address] [place] [address] Nurse Practitioner Cardiology 09/20/21 Peter Benavides PA-C 175 [facility] [address] [place] [address] Specialist Neurosurgery 12/07/21 Tierra Han NP [address] [place] [address] [address] [place] [address] Cardiology 07/14/24 documented as of this encounter
--- OUTSIDE RECORDS SUMMARY | 2025-07-09 12:23 | XMS_ITS | Encounter Summary ---
Author Organization [facility] Address [address] [place] [address] Care Team Providers Care Clasp Machine Operator Name Role Phone Geo Avendano MD Primary Care Provider Cheko Jaramillo MD Unavailable [phone] Mitchell Tapia MD, PHD Unavailable Unava Ramu Blackwell MD Unavailable Unavailabl e Sara Rodriguez ELEPHANT TAMER Unavailable [phone] Peter Benavides PA-C Unavailable [phone] Ronald Desai Primary Care Provider [phone] Ronald Desai Primary Care Provider [phone] Tierra Han ELEPHANT TAMER Unavailable [phone] Encounter Details Date Type Department Care Team Description 07/06/2010 Apprentice Cosmetologist Report Medical Records [address] [place] [address] [facility] Social History Tobacco Use Types Packs/Day Years Used Date Smoking Tobacco: Never Alcohol Use Standard Drinks/Week Comments [...] on filedocumented in this encounter Care Teams Clasp Machine Operator Relationship Specialty Start Date End Date Geo Avendano MD PCP - General 04/08/07 [facility]/31/22 [facility] [address] [place] [address] PCP - General Internal Medicine 06/01/22 07/15/22 [facility] [address] [place] [address] PCP - General Internal Medicine 07/16/22 Cheko Hassan MD [address] [place] [address] [place] [address] Bar Examiner Cardiovascular Disease 01/12/21 Mitchell Tapia MD, PHD [address] [place] [address] [place] [address] Specialist Neurosurgery 08/17/21 Ramu Solano MD [address] [place] [address] [place] [address] Specialist Internal Medicine 08/23/21 Sara Rodriguez NP [address] [place] [address] [place] [address] Nurse Practitioner Cardiology 09/20/21 Peter Benavides PA-C 175 [facility] [address] [place] [address] Specialist Neurosurgery 12/07/21 Tierra Han NP [address] [place] [address] [place] [id number] Cardiology 07/14/24 documented as of this encounter
--- OUTSIDE RECORDS SUMMARY | 2025-07-09 12:23 | XMS_ITS | Encounter Summary ---
Author Organization [facility] Address [address] [place] [address] Care Team Providers Care Cabinetmaker Maintenance Name Role Phone Geo Avendano MD Primary Care Provider Cheko Jaramillo MD Unavailable [phone] Mitchell Tapia MD, PHD Unavailable Unava Ramu Blackwell MD Unavailable Unavailabl e Sara Rodriguez EYEGLASS MAKER Unavailable [phone] Peter Benavides PA-C Unavailable [phone] Ronald Desai Primary Care Provider [phone] Ronald Desai Primary Care Provider [phone] Tierra Han EYEGLASS MAKER Unavailable [phone] Encounter Details Date Type Department Care Team Description 06/19/2019 Orders Only Adult Medicine [address] [address] Peter Donaldson PA-C [address] [place] [address] [id number] Diplopia Social History Tobacco Use Types Packs/Day Years [...] Procedure Name Priority Date/Time Associated Diagnosis Comments MRI OF BRAIN WITH AND WITHOU T CONTRAST Routine 06/16/2019 Diplopia documented in this encounter Results * MRI OF BRAIN WITH AND WITHOUT CONTRAST (06/16/2019) Peter Donaldson PA-C MRI [address] documented in this encounter Visit Diagnoses Diagnosis Diplopia documented in this encounter Care Teams Cabinetmaker Maintenance Relationship Specialty Start Date End Date Geo Avendano MD PCP - General 04/08/07 05/31/[address] [place] [address] PCP - General Internal Medicine 06/01/22 07/15/22 Ronald [place] [address] PCP - General Internal Medicine 07/16/22 Cheko Hassan MD [address] [place] [address] [place] [address] Button Inspector Cardiovascular Disease 01/12/21 Mitchell Tapia MD, PHD [address] [place] [address] [address] [place] [address] Specialist Neurosurgery 08/17/21 Ramu Solano MD 2 [facility] [address] [place] [address] Specialist Internal Medicine 08/23/21 Sara Rodriguez NP 2 [facility] [address] [place] [address] Nurse Practitioner Cardiology 09/20/21 Peter Benavides PA-C [address] [place] [address] [address] [place] [address] Specialist Neurosurgery 12/07/21 Tierra Han NP [address] [facility] [address] [place] [address] Cardiology 07/14/24 documented as of this encounter
--- OUTSIDE RECORDS SUMMARY | 2025-07-09 12:24 | XMS_ITS | Encounter Summary ---
Author Organization [facility] Address [address] [place] [address] Care Team Providers Care Cement Breaker Name Role Phone Geo Avendano MD Primary Care Provider Cheko Jaramillo MD Unavailable [phone] Mitchell Tapia MD, PHD Unavailable Unava Ramu Blackwell MD Unavailable Unavailabl e Sara Rodriguez NP Unavailable [phone] Peter Benavides PA-C Unavailable [phone] Ronald Desai Primary Care Provider [phone] Ronadl Desai Primary Care Provider [phone] Tierra Han CAN CUTTER Unavailable Encounter Details Date Type Department Care Team Description 04/30/2016 Family Health Nurse Practitioner Report Medical Records [address] [place] [address] Robby Blevins Social History Tobacco Use Types [...] on filedocumented in this encounter Care Teams Cement Breaker Relationship Specialty Start Date End Date Geo Avendano MD PCP - General 04/08/07 05/31/22 [facility] [address] [place] [address] PCP - General Internal Medicine 06/01/22 07/15/22 [facility] [address] [place] [address] PCP - General Internal Medicine 07/16/22 Cheko Hassan MD [address] [place] [address] [place] [address] Drum Reel Cutter Cardiovascular Disease 01/12/21 Mitchell Tapia MD, PHD [address] [place] [address] [address] [place] [address] Specialist Neurosurgery 08/17/21 Ramu Solano MD [address] [place] [address] [place] [address] Specialist Internal Medicine 08/23/21 Sara Rodriguez NP [address] [place] [address] [address] [place] [address] Nurse Practitioner Cardiology 09/20/21 Peter Benavides PA-C 175 [facility] [address] [place] [address] Specialist Neurosurgery 12/07/21 Tierra Han NP [address] [place] [address] Cardiology 07/14/24 documented as of this encounter
--- OUTSIDE RECORDS SUMMARY | 2025-07-09 12:24 | XMS_ITS | Encounter Summary ---
Author Organization [facility] Address [address] [place] [address] Care Team Providers Care Accountant Clerk Name Role Phone Cheko Hassan MD Unavailable [phone] Mitchell Tapia MD, PHD Unavailable Unava ilRamu Reid MD Unavailable Unavailabl e Sara Rodriguez NP Unavailable [phone] Peter Benavides PA-C Unavailable [phone] Ronald Desai Primary Care Provider [phone] Tierra Han NP Unavailable [phone] Encounter Details Date Type Department Care Team Description 11/12/2023 Hospital Medical Records [address] [place] [address] Yumiko Gutiérrez Social History Tobacco Use Types Packs/Day Years [...] on filedocumented in this encounter Care Teams Accountant Clerk Relationship Specialty Start Date End Date Min Desaimilagros [address] [place] [address] PCP - General Internal Medicine 07/16/22 Cheko Hassan MD [address] [place] [address] [place] [address] Java J2Ee Application Developer Cardiovascular Disease 01/12/21 Mitchell Tapia MD, PHD [address] [place] [address] [place] [address] Specialist Neurosurgery 08/17/21 Ramu Solano MD [address] [place] [address] [place] [address] Specialist Internal Medicine 08/23/21 Sara Rodriguez NP [address] [place] [address] [place] [address] Nurse Practitioner Cardiology 09/20/21 Peter Benavides PA-C 175 [facility] [address] [place] [address] Specialist Neurosurgery 12/07/21 Tierra Han NP [address] [place] [address] [address] [place] [address] Cardiology 07/14/24 documented as of this encounter
--- OUTSIDE RECORDS SUMMARY | 2025-07-09 12:24 | XMS_ITS | Encounter Summary ---
Author Organization [facility] Address [address] [place] [address] Care Team Providers Care Supervisor Composing Room Name Role Phone Cheko Hassan MD Unavailable [phone] Mitchell Tapia MD, PHD Unavailable Unava ilRamu Reid MD Unavailable Unavailabl e Sara Rodriguez CONSTRUCTION PROJECT MGR Unavailable [phone] Peter Benavides PA-C Unavailable [phone] Ronald Desai Primary Care Provider [phone] Tierra Han NP Unavailable [phone] Reason for Referral * Non CLYDE (Routine) - Authorized/Booked Specialty Diagnoses / Procedures Referred By Roberta elder Referred To Contact Physical Therapy Procedures REFERRAL TO PHYSICAL THERAPY Ronald Desai [address] [place] [address] [facility] Referral ID Status Reason Start Date Expiration Date V isits Requested Visits Authorized [id number] Authorized/B ooked 12/30/2023 12/29/2024 1 1 Reason for Visit * Reason Onset Date Comments Driller Operator Feedback 12/27/2023 Physical Therapy Encounter Details Date Type Department Care Team Description 12/27/2023 Telephone Adult Medicine [address] [address] Ronald Desai [address] [place] [address] Driller Operator Feedback (Physical Therapy/) Social History Tobacco Use Types Packs/Day Years [...] encounter Miscellaneous Notes * Telephone Encounter - David Suero - 12/30/2023 7:57 AM EDT Please review this patients new referral request. The referral has been pended. Please complete thefollowing: If approved> sign order If denied>please give instructions and route to your practice nursing pool. Practice nurse should inform referrals and the patient if denied. * Telephone Encounter - [place] Romo - 12/27/2023 11:31 AM EDT What insurance does the patient have today? Payor: [employer] / Plan: [facility] MEDICARE ADVANTAGE $10/$20 / Product Type: MEDICARE [id number] Effective 07/14/09: BCBS will not retro referral requests over 90 days. If request is for this please instruct patient to call the 800# on their insurance card to appeal. Do not submit a request. Referrals cannot be processed if the insurance is not accurate. If the insurance listed above in red is NO BILLING INFORMATION FOUND FOR THIS ENCOUTNER The patients correct insurance must be obtained and registered in [facility] or their referral can not be processed. Is this a retro request? NO. If yes for what date of service do you need the retro referral? N/A Who is calling to request this referral? Patient If the caller is not the patient, what is their name? N/A Ask the patient WHO referred them to this specialty: Ronald Desai FIRST and LAST NAME of SPECIALIST PATIENT is seeing: Apolinar Watkins. What specialty is this? Physical Therapy DIAGNOSIS Patient is being seen for (Not a body part or a procedure): Low backache/ Neck pain/ Ataxia Have you seen this SPECIALIST for this PROBLEM/DX before?YES If YES, when:08/05 Have you checked REVIEW or the APPT DESK to see if this referral has already been done or has visits left? YES Is this visit:Follow Up Address of Specialist: [address] [place] [address] Phone # of Specialist:[phone] Fax #: (if applicable):[phone] Does patient have an appointment scheduled?: NO Date of appointment- (including a retro-request): TDB , 6 Visits Is this appointment related to: Not MVA, WC or Surgery related documented in this encounter Plan of Treatment Not on file documented as of this encounter Visit Diagnoses Not on filedocumented in this encounter Care Teams Supervisor Composing Room Relationship Specialty Start Date End Date Ronald Desai [address] [place] [address] PCP - General Internal Medicine 07/16/22 Cheko Hassan MD [address] [place] [address] [place] [address] Early Childhood Specialist Cardiovascular Disease 01/12/21 Mitchell Tapia MD, PHD [address] [facility] [address] [place] [address] Specialist Neurosurgery 08/17/21 Ramu Solano MD [address] [place] [address] [address] [place] [address] Specialist Internal Medicine 08/23/21 Sara Rodriguez NP [address] [place] [address] [address] [place] [address] Nurse Practitioner Cardiology 09/20/21 Peter Benavides PA-C 175 [facility] [address] [place] [address] Specialist Neurosurgery 12/07/21 Tierra Han, RAMAN [address] [place] [address] [address] [place] [address] Cardiology 07/14/24 documented as of this encounter
--- OUTSIDE RECORDS SUMMARY | 2025-07-09 12:24 | XMS_ITS | Encounter Summary ---
Author Organization [facility] Address [address] [place] [address] Care Team Providers Care Programming Equipment Operator Name Role Phone Geo Avendano MD Primary Care Provider Cheko Jaramillo MD Unavailable [phone] Mitchell Tapia MD, PHD Unavailable Unava Ramu Blackwell MD Unavailable Unavailabl e Sara Rodriguez HONING MACHINE SET UP OPERATOR TOOL Unavailable [phone] Peter Benavides PA-C Unavailable [phone] Ronald Desai Primary Care Provider [phone] Ronald Desai Primary Care Provider [phone] Tierra Han HONING MACHINE SET UP OPERATOR TOOL Unavailable [phone] Encounter Details Date Type Department Care Team Description 11/09/2011 Night Triage Doc Medical Records [address] [place] [address] Abstract, Provider Social History Tobacco Use Types [...] on filedocumented in this encounter Care Teams Programming Equipment Operator Relationship Specialty Start Date End Date Geo Avendano MD PCP - General 04/08/07 05/31/22 [facility] [address] [place] [address] PCP - General Internal Medicine 06/01/22 07/15/22 [facility] [address] [place] [address] PCP - General Internal Medicine 07/16/22 Cheko Hassan MD [address] [place] [address] [place] [address] Advertising Designer Cardiovascular Disease 01/12/21 Mitchell Tapia MD, PHD [address] [place] [address] [address] [place] [address] Specialist Neurosurgery 08/17/21 Ramu Solano MD [address] [place] [address] [place] [address] Specialist Internal Medicine 08/23/21 Sara Rodriguez NP [address] [place] [address] [address] [place] [address] Nurse Practitioner Cardiology 09/20/21 Peter Benavides PA-C 175 [facility] [address] [place] [address] Specialist Neurosurgery 12/07/21 Tierra Han NP [address] [place] [address] Cardiology 07/14/24 documented as of this encounter
--- OUTSIDE RECORDS SUMMARY | 2025-07-09 12:24 | XMS_ITS | Encounter Summary ---
Author Organization [facility] Address [address] [place] [address] Care Team Providers Care Director Data Management Name Role Phone Cheko Hassan MD Unavailable [phone] Mitchell Tpaia MD, PHD Unavailable Unava ilable Ramu Solano MD Unavailable Unavailabl e Sara Rodriguez WINTER INTERN Unavailable [phone] Peter Benavides PA-C Unavailable Ronald Desai Primary Care Provider [phone] Tierra Han NP Unavailable [phone] Encounter Details Date Type Department Care Team Description 12/24/2023 Assignment Manager Report Medical Records [address] [place] [address] Jacob Conde MD Social History Tobacco Use [...] filedocumented in this encounter Care Teams Director Data Management Relationship Specialty Start Date End Date Ken Desaichloe [address] [place] [address] PCP - General Internal Medicine 07/16/22 Cheko Hassan MD [address] [place] [address] [address] [place] [address] District Customs Director Cardiovascular Disease 01/12/21 Mitchell Tapia MD, PHD [address] [place] [address] [address] [place] [address] Specialist Neurosurgery 08/17/21 Ramu Solano MD [address] [place] [address] [place] [address] Specialist Internal Medicine 08/23/21 Sara Rodriguez, RMAAN [address] [place] [address] [address] [place] [address] Nurse Practitioner Cardiology 09/20/21 Peter Benavides PA-C 175 [facility] [address] [place] [address] Specialist Neurosurgery 12/07/21 Tierra Han NP [address] [place] [address] [address] [place] [address] Cardiology 07/14/24 documented as of this encounter
--- OUTSIDE RECORDS SUMMARY | 2025-07-09 12:24 | XMS_ITS | Encounter Summary ---
Author Organization [facility] Address [address] [place] [address] Care Team Providers Care Brand Specialist Name Role Phone Geo Avendano MD Primary Care Provider Cheko Jaramillo MD Unavailable [phone] Mitchell Tapia MD, PHD Unavailable Unava Ramu Blackwell MD Unavailable Unavailabl e Sara Rodriguez BARREL RIBS SOLDERER Unavailable [phone] Peter Benavides PA-C Unavailable [phone] Ronald Desai Primary Care Provider [phone] Ronald Desai Primary Care Provider [phone] Tierra Han BARREL RIBS SOLDERER Unavailable [phone] Encounter Details Date Type Department Care Team Description 09/26/2011 Log Yard Derrick Operator Report Medical Records [address] [place] [address] Jaime Lopez Social History Tobacco Use Types [...] on filedocumented in this encounter Care Teams Brand Specialist Relationship Specialty Start Date End Date Geo Avendano MD PCP - General 04/08/07 05/31/22 [facility] [address] [place] [address] PCP - General Internal Medicine 06/01/22 07/15/22 [facility] [address] [place] [address] PCP - General Internal Medicine 07/16/22 Cheko Hassan MD [address] [place] [address] [place] [address] Photoengraving Proofer Cardiovascular Disease 01/12/21 Mitchell Tapia MD, PHD [address] [place] [address] [place] [address] Specialist Neurosurgery 08/17/21 Ramu Solano MD [address] [place] [address] [place] [address] Specialist Internal Medicine 08/23/21 Sara Rodriguez NP [address] [place] [address] [place] [address] Nurse Practitioner Cardiology 09/20/21 Peter Benavides PA-C 175 [facility] [address] [place] [address] Specialist Neurosurgery 12/07/21 Tierra Han NP [address] [place] [address] Cardiology 07/14/24 documented as of this encounter
--- OUTSIDE RECORDS SUMMARY | 2025-07-09 12:24 | XMS_ITS | Encounter Summary ---
Author Organization [facility] Address [address] [place] [address] Care Team Providers Care Blocking Machine Operator Name Role Phone Cheko Hassan MD Unavailable [phone] Mitchell Tapia MD, PHD Unavailable Unava ilRamu Reid MD Unavailable Unavailabl e Sara Rodriguez NP Unavailable [phone] Peter Benavides PA-C Unavailable [phone] Ronald Desai Primary Care Provider [phone] Tierra Han NP Unavailable [phone] Encounter Details Date Type Department Care Team Description 11/07/2023 Telephone Adult Medicine [facility] [address] [place] [address] Julio Cruz PA-C [address] [place] [address] [phone] Social History Tobacco Use Types Packs/Day Years [...] encounter Miscellaneous Notes * Telephone Encounter - Julio Cruz PA-C - 11/07/2023 5:37 PM EST Please schedule patient for I week follow-up visit with me in office. documented in this encounter Plan of Treatment Not on file documented as of this encounter Visit Diagnoses Not on filedocumented in this encounter Care Teams Blocking Machine Operator Relationship Specialty Start Date End Date Ronald Desai [address] [place] [address] PCP - General Internal Medicine 07/16/22 Cheko Hassan MD [address] [place] [address] [place] [place] [address] Dielectric Press Operator Cardiovascular Disease 01/12/21 Mitchell Tapia MD, PHD [address] [place] [address] [place] [address] Specialist Neurosurgery 08/17/21 Ramu Solano MD [address] [place] [address] [address] [place] [address] Specialist Internal Medicine 08/23/21 Sara Rodriguez NP [address] [place] [address] [address] [place] [address] Nurse Practitioner Cardiology 09/20/21 Peter Benavides PA-C 175 [facility] [address] [place] [address] Specialist Neurosurgery 12/07/21 Tierra Han, RAMAN [address] [place] [address] Cardiology 07/14/24 documented as of this encounter
--- OUTSIDE RECORDS SUMMARY | 2025-07-09 12:24 | XMS_ITS | Encounter Summary ---
Author Organization [facility] Address [address] [place] [address] Care Team Providers Care Fitness And Wellness Instructor Name Role Phone Ronald Desai MD Primary Care Provider Encounter Details Date Type Department Care Team (Late st Contact Info) Description 08/15/2024 Lab Requisition [facility] - Main Lab [address] [facility] [place] [phone] Rajeev Diaz MD [address] [place] [address] Dysphagia, unspecified Social History Tobacco Use Types [...] AM EDT Office Visit Orthopedic Surgery - [place] [address] [phone] David Beltre, DPM [address] [phone] 07/27/2025 3:15 PM EDT Office Visit Nephrology [facility] [place] [address] [place] [address] Marcelo Roach MD [address] [place] [address] 08/03/2025 10:30 AM EDT Office Visit Vascular Surgery - [place] [address] [place] [address] Melyssa Navarrete PA [address] [place] [phone] 08/11/2025 8:30 AM EDT Office Visit Pulmonology - [place] [address] [place] [phone] Suzie Bates NP [address] [place] [phone] 09/13/2025 3:00 PM EST Office Visit Adult Medicine [address] [phone] Ronald Desai MD [address] [place] [address] 09/22/2025 8:30 AM EST Office Visit Adult [address] [phone] Magui Pang PA [address] [place] [address] documented as of this encounter Visit Diagnoses Diagnosis Dysphagia, unspecified documented in this encounter Additional Health Concerns Infection Onset Date Last Indicated Resolved Time Respiratory Rule-Out 11/19/2024 11/19/2024 025 11:34 PM EST COVID-19 Rule-Out 11/19/2024 11/19/2024 11/19/2024 11:34 PM EST documented as of this encounter Care Teams Fitness And Wellness Instructor Relationship Specialty Start Date End Date Ronald Desai MD [address] [place] [address] PCP - General Internal Medicine 05/17/25 documented as of this encounter
== END 2025-07-09 11:52 | disposition home or self-care (01) ==
LOC: HO.PMC 10:45
PROVIDERS: PCP Internal Medicine; Visit Provider Internal Medicine
DX: M48.062 Spinal stenosis, lumbar region with neurogenic claudication (principal); Z98.1 Arthrodesis status; M96.1 Postlaminectomy syndrome, not elsewhere classified; Z98.890 Other specified postprocedural states
CPT/HCPCS: 99214

== ENCOUNTER → 2025-07-09 10:44 | Outpatient (BNVA) | payer MEDICARE, SELFPAY | PROVIDERS: PCP Internal Medicine; Visit Provider Internal Medicine | DX: M48.062 Spinal stenosis, lumbar region with neurogenic claudication (principal); M96.1 Postlaminectomy syndrome, not elsewhere classified; Z98.1 Arthrodesis status; Z98.890 Other specified postprocedural states | CPT/HCPCS: 99212 ==

== ENCOUNTER 2025-09-01 10:01 | Outpatient (AMB) | payer MEDICARE, SELFPAY ==
[2025-09-01 09:58] VITALS: BP 136/62; PULSE 76; O2SAT 98; BMI 32.7
--- NOTE | 2025-09-01 09:58 | HO.NEPHOV ---
Vital Signs 09/01/25 09:58 09/01/25 10:18 Height 6 ft Weight 241 lb BMI 32.7 BP 136/62 120/70 Blood Pressure Location Lt brachial Lt brachial Position Sitting Sitting Pulse 76 Pulse Source Pulse Oximeter Pulse Oximetry (%) 98 Oxygen Delivery Method Room Air Intake Visit Reasons: ENP: NAHUN Acute Kidney Injury Checker Cashier Required: No Accompanied by: Self / Same As Patient Allergies adhesive tape Allergy (Verified 09/01/25 10:03) Itching atorvastatin Allergy (Verified 09/01/25 10:03) Muscle cramps mite-Dermatophagoides farinae, thomas (dust mite - [place]) Allergy (Verified 09/01/25 10:03) Unknown pravastatin Allergy (Verified 09/01/25 10:03) Unknown Medication List - Last Reconciled 09/01/25 by Larry Srinivasan MD albuterol sulfate 90 mcg/actuation 2 puffs inhalation Q4-6H PRN aspirin 81 mg PO DAILY Held on 07/30/24. Instructions: Resume on 08/02/24. cetirizine (All Day Allergy (cetirizine)) 10 mg PO DAILY PRN cholecalciferol (vitamin D3) (Vitamin D3) 25 mcg PO DAILY diclofenac sodium 1% 2 grams topical QID dicyclomine 10 mg PO DAILY PRN duloxetine 20 mg PO DAILY ezetimibe 10 mg PO DAILY fenofibrate nanocrystallized 145 mg PO DAILY fluticasone propionate 50 mcg/actuation 1 spray intranasal DAILY iagawqmiifw-edcnczpra-dexnlapm 100-62.5-25 mcg (Trelegy Ellipta) 1 inh inhalation DAILY gabapentin 200 mg PO BID PRN hydrocortisone 2.5% 1 appl topically 1-2 times de PRN; Held on 07/30/24. Instructions: Resume on 08/13/24. Do not apply to incision site ipratropium-albuterol 0.5 mg-3 mg(2.5 mg base)/3 mL 3 mL inhalation Q6H PRN ketoconazole 2% 1 appl topical 2XW PRN Lactobacillus acidophilus 1,000 mmu cells PO DAILY lidocaine 5% 1 patch topical DAILY PRN Held on 07/30/24. Instructions: Resume on 08/13/24. Do not apply to incision site loratadine (Allergy Relief (loratadine)) 10 mg PO DAILY losartan 25 mg PO DAILY montelukast 10 mg PO BEDTIME multivitamin 1 tab PO DAILY pantoprazole 40 mg PO QAM tizanidine 4 mg PO BEDTIME PRN valacyclovir 1,000 mg PO TID zinc gluconate 25 mg PO DAILY HPI Comments Details: The patient is a 69-year-old male presenting for evaluation of declining kidney function. He reports his kidney function has decreased to 35% from a prior baseline of 50-55% and is concerned about the continued decline. The etiology of his kidney condition is unknown to him. Previously seen by different nephrologists and is not happy with the care and hence he has switched His medical history is significant for mild hypertension, for which he takes losartan 25 mg, and high cholesterol. He denies any history of diabetes. He also has a history of hepatic steatosis of unknown severity and a kidney cyst. The patient underwent spinal surgery in July of last year and continues to experience soreness in his arms and hip pain with muscle tightness, which can be severe enough to wake him from sleep. He also reports issues with balance. He reports nocturia, with urination approximately every hour at night. He notes a high PSA level but is unaware if he has had proteinuria. He had a kidney ultrasound a couple of months ago at [facility] and previously saw urology and rheumatology. Current medications include CoQ10, baby aspirin, and pantoprazole once daily. He denies the use of NSAIDs, tobacco, or alcohol. History of renal cyst she was seen by Dr. Blevins in the past. [facility] Medical History (Updated 09/01/25 @ 10:22 by Larry Srinivasan MD) Fatty liver Thoracic and lumbosacral neuritis Abnormality of gait Dysplastic nevi Tear of supraspinatus tendon Renal cyst Adjustment disorder with mixed anxiety and depressed mood Mixed hyperlipidemia Cognitive impairment Lung nodule Cervical radiculopathy Spinal stenosis of lumbar region Nuclear sclerosis of both eyes Elevated PSA Disorder of both eustachian tubes Bilateral tinnitus Cellulitis of left ear Posterior rhinorrhea Dizziness and giddiness Habitual snoring Obesity (BMI 30-39.9) Methacholine challenge positive Gallbladder polyp Hepatomegaly Dysphagia Otalgia of both ears Cervical spinal stenosis Acute frontal sinusitis Bilateral acute serous otitis media Chronic pharyngitis Muscle cramps Herpes simplex infection Sensorineural hearing loss of both ears Migraine Neck pain Mixed conductive and sensorineural hearing loss of right ear Heart murmur Dyspnea on exertion HTN (hypertension) Arthritis Impingement syndrome of shoulder region Incomplete tear of right rotator cuff Epigastric discomfort Osteoarthritis Peripheral neuropathy Sensation of lump in throat Allergic rhinitis Lumbar radiculopathy Muscle twitch Sleep apnea Asthma COPD (chronic obstructive pulmonary disease) High cholesterol GERD (gastroesophageal reflux disease) Chronic kidney disease, stage 3 History of dementia Surgical History Hx of nasal septoplasty Hx of umbilical hernia repair History of esophagogastroduodenoscopy (EGD) Hx of shoulder surgery Hx of neck surgery Hx of hernia repair H/O colonoscopy Status post lumbar spinal fusion Hx of decompressive lumbar laminectomy Family History Mother Arthritis Father Arthritis Social History Household Members: None Household Members Other:: cousin Housing: House Are you a primary home health caregiver to a significant other at home: No Do you presently have visiting nurse or other home services: No Alcohol intake: never Patient Tobacco Use Status: Never used Tobacco service: No Current occupational status: unemployed Review of Systems Const Denies fever(s) and Denies weight loss Card Denies chest pain Resp Denies cough and Denies hemoptysis GI Denies abdominal pain, Denies diarrhea and Denies nausea Neuro Denies focal weakness Physical Exam Vital Signs: Last Vital Signs Pulse 76 09/01/25 09:58 BP 120/70 09/01/25 10:18 Pulse Ox 98 09/01/25 09:58 Oxygen Delivery Method Room Air 09/01/25 09:58 BMI result Body Mass Index 32.7 Comfortable Neck supple no JVD. Lungs entry equal no rales. Heart S1-S2 heard no gallop or rub. Abdomen soft nontender. Neuro alert awake oriented. No asterixis. Extremities no edema. Results Reviewed Results Reviewed: Lab results from the past were reviewed Assessment & Plan Assessment & Plan (1) CKD (chronic kidney disease): Code(s): N18.9 - Chronic kidney disease, unspecified Category: Medical Plan 69-year-old man with CKD 3. Exact etiology is unclear. Although he has borderline hypertension overall blood pressure is well controlled. I do not believe this is the etiology for CKD. Prerenal causes are less likely. He could have chronic hypoperfusion. Obstruction should be ruled out in his middle-aged man. Other less likely possibilities including glomerular nephritis and interstitial disease we will be ruled out. Recommendation Initiate a accompanied hence workup for CKD. Track down renal ultrasonogram done in the past. If unavailable I will order another ultrasonogram to rule out a hydronephrosis and to assess the echogenicity. In the meantime he should stay on low-sodium diet Increase p.o. fluid intake to maintain adequate hydration. Maintain blood pressure less than 130/80. Continue to avoid nephrotoxic agents including NSAIDs and IV contrast dye. Decrease pantoprazole to once a day. Further workup will be based on the outcome of the baseline investigations. All his questions were answered. Returned to the clinic in the next few weeks. . Orders: Orders Complete Blood Count Auto Diff Today N18.9 - Chronic kidney disease, unspecified Creatinine Urine Today N18.9 - Chronic kidney disease, unspecified Parathyroid Hormone Intact Today N18.9 - Chronic kidney disease, unspecified Uric Acid Today N18.9 - Chronic kidney disease, unspecified UA and rflx microscopic Today N18.9 - Chronic kidney disease, unspecified Vitamin D 25-OH Total Today N18.9 - Chronic kidney disease, unspecified Comprehensive Met. Panel Today N18.9 - Chronic kidney disease, unspecified Total Protein Urine Random Today N18.9 - Chronic kidney disease, unspecified Coding Level of Care Code New Pt Level 4 (04164) Diagnoses CKD (chronic kidney disease) N18.9
[2025-09-01 10:18] VITALS: BP 120/70
--- OUTSIDE RECORDS SUMMARY | 2025-09-01 18:54 | XMS_ITS ---
Author Organization [facility] Care Team Providers Care Pigment Pusher Name Role Phone Vicki Augustine Unavailable Unavailable Rajeev Diaz Unavailable Unavailable Allergies and adverse reactions Code CodeSystem Substance Reaction Severity StartDate Concern Status adhesive tape Eruption (code - 536211564, SNOMED CT) Moderate 07/30/2024 active 99634 RXNORM Atorvastatin Anaphylaxis (code- 28324942, SNOMED CT) Moderate 07/30/2024 active mite-dermatophag oi sujatha farinae Anaphylaxis (code- 50816133, SNOMED CT) Moderate 07/30/2024 active 49644 RXNORM Pravastatin Anaphylaxis (code- 30193852, SNOMED CT) Moderate 07/30/2024 active Care Team Name Role Address Phone Organization Dates Rajeev Diaz PCP [address] [place] [address], [id number], [facility] (Office): : [facility] 07/30/2024 - 08/11/2024 Vicki Augustine [place], [facility] 07/30/2024 - 08/11/2024 Immunizations Immunization Status Vaccine Details Vaccine Code CodeSystem Date Notes Influenza new Influenza, high-dose, split virus, quadrivalent, injectable, preservative free 197 CVX created date: 08/05/2024 consent date: 08/05/2024 Educated by Shi Boo on 08/05/2024 [id number] completed pneumococcal polysaccharide vaccine, 23 valent 33 CVX created date: 08/03/2024 administere d date: 07/15/2018 Prevnar 13 completed pneumococcal conjugate vaccine, 13 valent 133 CVX created date: 08/03/2024 administere d date: 08/17/2022 Mental Status Section Date Assessment Total Score Description 08/10/2024 BIMS 07 severe cognitiv e impairment CAM 0 No delirium ind icated PHQ-9 00 08/05/2024 BIMS 09 moderate cognit marina impairment CAM 0 No delirium ind icated PHQ-9 01 minimal depress ion Insurance Providers Problems Problem # Description Date of onset Resolved Date Code CodeSystem Concern Status 1 ATAXIC GAIT 07/31/[address] active 2 CHRONIC KIDNEY DISEASE, STAGE 3 UNSPECIFIED 07/31/[address] active 3 NEED FOR ASSISTANCE WITH PERSONAL CARE 07/31/[address] active 4 UNSPECIFIED ABNORMALITIES OF GAIT AND MOBILITY 07/31/[address] active 5 UNSTEADINESS ON FEET 07/31/[address] active 6 ACUTE FRONTAL SINUSITIS, UNSPECIFIED 07/30/[address] active 7 ACUTE SEROUS OTITIS MEDIA, BILATERAL 07/30/[address] active 8 ADJUSTMENT DISORDER WITH MIXED ANXIETY AND DEPRESSED MOOD 07/30/[address] active 9 AGE-RELATED NUCLEAR CATARACT, BILATERAL 07/30/[address] active 10 AGE-RELATED NUCLEAR CATARACT, UNSPECIFIED EYE 07/30/[address] active 11 ALLERGIC RHINITIS, UNSPECIFIED 07/30/[address] active 12 BODY MASS INDEX [BMI]30.0-30.9, ADULT 07/30/[address] active 13 CARDIAC MURMUR, UNSPECIFIED 07/30/[address] active 14 CELLULITIS OF LEFT EXTERNAL EAR 07/30/[address] active 15 CERVICALGIA 07/30/[address] active 16 CHOLESTEROLOSIS OF GALLBLADDER 07/30/[address] active 17 CHRONIC OBSTRUCTIVE PULMONARY DISEASE, UNSPECIFIED 07/30/[address] active 18 CHRONIC PHARYNGITIS 07/30/[address] active 19 CRAMP AND SPASM 07/30/[address] active 20 CYST OF KIDNEY, ACQUIRED 07/30/[address] active 21 DIZZINESS AND GIDDINESS 07/30/[address] active 22 DYSPHAGIA, UNSPECIFIED 07/30/[address] active 23 ELEVATED PROSTATE SPECIFIC ANTIGEN [PSA] 07/30/[address] active 24 EPIGASTRIC PAIN 07/30/[address] active 25 ESSENTIAL (PRIMARY) HYPERTENSION 07/30/[address] active 26 FASCICULATION 07/30/[address] active 27 FATTY (CHANGE OF) LIVER, NOT ELSEWHERE CLASSIFIED 07/30/[address] active 28 FUSION OF SPINE, CERVICAL REGION 07/30/[address] active 29 GASTRO-ESOPHAGEAL REFLUX DISEASE WITHOUT ESOPHAGITIS 07/30/[address] active 30 HEPATOMEGALY, NOT ELSEWHERE CLASSIFIED 07/30/[address] active 31 HERPES SIMPLEX MYELITIS 07/30/[address] active 32 HYPERLIPIDEMIA, UNSPECIFIED 07/30/[address] active 33 IMPINGEMENT SYNDROME OF UNSPECIFIED SHOULDER 07/30/[address] active 34 INCOMPLETE ROTATOR CUFF TEAR OR RUPTURE OF RIGHT SHOULDER, NOT SPECIFIED TRAUMATIC 07/30/[address] active 35 LOW BACK PAIN, UNSPECIFIED 07/30/[address] active 36 MELANOCYTIC NEVI, UNSPECIFIED 07/30/[address] active 37 MIGRAINE, UNSPECIFIED, NOT INTRACTABLE, WITHOUT STATUS MIGRAINOSUS 07/30/[address] active 38 MILD COGNITIVE IMPAIRMENT OF UNCERTAIN OR UNKNOWN ETIOLOGY 07/30/[address] active 39 OTALGIA, UNSPECIFIED EAR 07/30/[address] active 40 OTHER FORMS OF DYSPNEA 07/30/[address] active 41 OTHER IDIOPATHIC PERIPHERAL AUTONOMIC NEUROPATHY 07/30/[address] active 42 OTHER SPECIFIED DISORDERS OF EUSTACHIAN TUBE, BILATERAL 07/30/[address] active 43 POSTNASAL DRIP 07/30/[address] active 44 PRIMARY GENERALIZED (OSTEO)ARTHRITIS 07/30/[address] active 45 PURE HYPERCHOLESTEROLEM IA, UNSPECIFIED 07/30/[address] active 46 RADICULOPATHY, CERVICAL REGION 07/30/[address] active 47 RADICULOPATHY, LUMBOSACRAL REGION 07/30/[address] active 48 RHEUMATOID ARTHRITIS WITH RHEUMATOID FACTOR, UNSPECIFIED 07/30/[address] active 49 SENSORINEURAL HEARING LOSS, BILATERAL 07/30/[address] active 50 SLEEP APNEA, UNSPECIFIED 07/30/[address] active 51 SOLITARY PULMONARY NODULE 07/30/[address] active 52 SPINAL STENOSIS, CERVICAL REGION 07/30/[address] active 53 SPINAL STENOSIS, LUMBAR REGION WITH NEUROGENIC CLAUDICATION 07/30/[address] active 54 SPINAL STENOSIS, LUMBAR REGION WITHOUT NEUROGENIC CLAUDICATION 07/30/[address] active 55 STIFFNESS OF UNSPECIFIED SHOULDER, NOT ELSEWHERE CLASSIFIED 07/30/[address] active 56 STRAIN OF MUSCLE(S) AND TENDON(S) OF THE ROTATOR CUFF OF RIGHT SHOULDER, SUBSEQUENT ENCOUNTER 07/30/[address] active 57 SWAN-NECK DEFORMITY OF UNSPECIFIED FINGER(S) 07/30/[address] active 58 TINNITUS, BILATERAL 07/30/[address] active 59 UNSPECIFIED ASTHMA, UNCOMPLICATED 07/30/[address] active 60 UNSPECIFIED DEMENTIA, UNSPECIFIED SEVERITY, WITHOUT BEHAVIORAL DISTURBANCE, PSYCHOTIC DISTURBANCE, MOOD DISTURBANCE, AND ANXIETY 07/30/[address] active 61 UNSPECIFIED HEARING LOSS, RIGHT EAR 07/30/[address] active 62 UNSPECIFIED OSTEOARTHRITIS, UNSPECIFIED SITE 07/30/[address] active 63 UNSPECIFIED ROTATOR CUFF TEAR OR RUPTURE OF UNSPECIFIED SHOULDER, NOT SPECIFIED TRAUMATIC 07/30/[address] active Reason for Referral No Reasons for Referral Entered Social History Social History Observation Description Start Date End Date Code Code System Current Smoking Status Tobacco smoking consumption unknown 675826196 SNOMED CT Sex Assigned At Male 1955 39148-2 [facility] Gender Identity Sexual Orientation Vital Signs Code Code System Vitals Name Values and Units Timing Information 49312-1 [facility] Pain Level Value=0.0 08/10/2024 9279-1 [facility] Respiratory Rate Value=16.0 Units=/m in 08/10/2024 8462-4 [facility] Blood Pressure-Diastolic Value=84 Un its=mmHg 08/10/2024 8480-6 [facility] Blood Pressure-Systolic Nhzph=316 Un its=mmHg 08/10/2024 8310-5 [facility] Body Temperature Value=97.2 Units= F 08/10/2024 8867-4 [facility] Heart rate Value=69.0 Units=/min 00312-2 [facility] O2 % BldC Oximetry Vakkh=919.0 Units =% 08/10/2024 52730-2 [facility] Weight Qucdp=791.6 Units=Lbs 8302-2 [facility] Height Value=72.0 Units=Inches 07/30/2024
--- OUTSIDE RECORDS SUMMARY | 2025-09-01 18:54 | XMS_ITS | Encounter Summary ---
Author Organization [facility] Address [address] [place] [address] Care Team Providers Care Rag Room Supervisor Name Role Phone Ronald Desai MD Primary Care Provider [phone] Encounter Details Date Type Department Care Team (Late st Contact Info) Description 08/21/2024 Lab Requisition [facility] - Main Lab [address] [facility] [place] [phone] Rajeev Diaz MD [address] [place] [address] Dysphagia, unspecified Social History Tobacco Use Types [...] Department Care Team (Late Contact Info) Description 09/07/2025 8:20 AM EST Office Visit [facility] [address] [place] [phone] Cheko Hassan MD [address] [place] [address] Dr [address] [place] [phone] 09/13/2025 3:00 PM EST Office Visit Adult Medicine [address] [phone] Ronald Desai MD [address] [place], [place] 09/22/2025 8:30 AM EST Office Visit Adult Medicine [address] [phone] Magui Pang PA [address] [place], [place] 10/28/2025 8:45 AM EST Office Visit Orthopedic Surgery - [place] [address] [facility] [address] [place] [phone] David Beltre DPM [address] [facility] [address] [place] [phone] 11/01/2025 10:35 AM EST Office Visit Pulmonology - [place] [address] [facility] [address] [place] [phone] Suzie Bates, RAMAN [address] [place] [phone] 01/25/2026 1:15 PM EDT Office Visit Nephrology - [facility] [address] [place] [phone] Marcelo Roach MD [address] [facility] [address] [place] [phone] documented as of this encounter Visit Diagnoses Diagnosis Dysphagia, unspecified documented in this encounter Additional Health Concerns Infection Onset Date Last Indicated Resolved Time Respiratory Rule-Out 11/19/2024 11/19/2024 025 11:34 PM EST COVID-19 Rule-Out 11/19/2024 11/19/2024 11/19/2024 11:34 PM EST documented as of this encounter Care Teams Rag Room Supervisor Relationship Specialty Start Date End Date Ronald Desai MD [address] [place] [id number] PCP - General Internal Medicine 05/17/25 documented as of this encounter
--- OUTSIDE RECORDS SUMMARY | 2025-09-01 18:54 | XMS_ITS | Data Portability ---
Author Organization [facility] [place] Address [address] [place] [address] Care Team Providers Care Javascript Ui Developer Name Role Phone KASHMIR CARTY Primary Care [...] findings at length with the patient today. We discussed the nature and etiology of this problem along with current treatment options. We discussed the expected course and outcomes and what to expect. We also discussed risks and benefits. All of their questions were answered today, and there was exhibited understanding and comprehension of all that was discussed. 10 minutes were spent reviewing previous imaging and charting. 10 minutes were spent obtaining patient history. 5 minutes were spent on physical exam. 5minutes were spent explaining diagnosis and assessment. Today's [...] Name and Address Organization Details Recorded Time Bilateral inflammat ion of shoulder regions Active 2021 Bilateral shoulder region arthritis Not Available [facility] 5 00:08:45 Nontrauma tic complete rupture of rotator cuff of right shoulder 39170555158 74647 Active 2021 Nontrauma tic complete tear of right rotator cuff Not Available [facility] 5 00:08:45 Impingeme nt syndrome of shoulder region 782938163 Active 2021 Impingeme nt syndrome of shoulder region Not Available [facility] 5 00:08:46 Localized , primary osteoarth ritis of the shoulder region 992618943 Active 2022 SILVIA ARCE PA-C [address], [place], [address] , [place] [facility] [place] 3 09:28:46 Rupture of rotator cuff of right shoulder 64441896114 984235 Active 2022 SILVIA ARCE PA-C [address], [place], [address] , [place] [facility] 3 09:28:56 Problem Notes None recorded. Medical Equipment None Reported. Allergies No known drug allergies Medications Name Sig Start Date Stop Date Status Note LastModified by Organization Details LastModified Time albuterol sulfate 2.5 mg/3 mL (0.083 %) solution for nebulizatio n INHALE 1 AMP BY NEBULIZAT ION ROUTE 4 TIMES EVERY DAY active Not [...] Not Available Not Available No t Available bupivacaine HCl 0.5 % (5 mg/mL) injection solution 09/27 completed Not Available Not Available Not Available valacyclovi r 500 mg tablet Take 1 tablet every [...] Not Available Not Available No t Available triamcinolo ne acetonide 40 mg/mL suspension for injection 09/27 completed Not Available Not Available Not Available Lasix 20 mg tablet Take 1 tablet every day by oral route. active Not Available Not Available No t Available ferrous sulfate 325 mg (65 mg iron) tablet TAKE 1 TABLET BY MOUTH EVERY DAY active Not Available Not Available No t Available fluticasone 500 mcg-salmete rol 50 mcg/dose blistr powdr for inhalation Inhale 1 puff twice a day by inhalatio n route. active Not Available Not Available No t Available losartan 25 mg tablet Take 1 tablet every day by oral route. active Not Available Not Available No t Available docusate sodium 100 mg capsule TAKE 1 TABLET BY MOUTH TWICE A DAY active Not Available Not Available No t Available omeprazole 20 mg capsule,del ayed release Take 1 capsule (20 mg total) by mouth 2 (two) times a day. 2021 active Not Available Not Available Not Avai lable montelukast 10 mg tablet Take 1 tablet every day by oral route. active Not Available Not Available No t Available bisacodyl 5 mg tablet,andrea yed release TAKE 2 TABS AT 6PM DIRECTED. active Not Available Not Available No t Available gabapentin 100 mg capsule Take 1 capsule 3 times a day by oral route. active Not Available Not Available No t Available albuterol sulfate HFA 90 mcg/actuati on aerosol inhaler TAKE 2 PUFFS BY MOUTH EVERY 4 TO 6 HOURS NEEDED 2021 active Not Available Not Available Not Avai lable carbidopa 25 mg-levodopa 100 mg tablet TAKE 1 TABLET BY MOUTH THREE TIMES A DAY FOR 30 DAYS active Not Available Not Available No t Available dicyclomine 10 mg capsule TAKE 1 [...] Available Not Available No t Available omeprazole active Not Available Not Av ailable Not Available lidocaine (PF) 10 mg/mL (1 %) injection solution 09/27 completed Not Available Not Available Not Available Gavilax 17 gram/dose oral powder PLEASE SEE ATTACHED FOR DETAILED DIRECTION S active Not Available Not Available No t Available Flonase Allergy Relief 50 mcg/actuati on nasal spray,suspe nsion Orient 1 spray every day by intranasa l route. active Not Available Not Available No t Available Repatha SureClick 140 mg/mL subcutaneou s pen injector Inject 1 mL every 2 weeks by subcutane ous route. active Not Available Not Available No t Available Flowflex COVID-19 Antigen Home Test kit USE ACCORDING TO MANUFACTU RER'S DIRECTION S active Not Available Not Available No t Available albuterol 90 mcg-budeson nikolai 80 mcg/actuati on HFA aerosol inhaler Inhale by inhalatio n route. active Not Available Not Available No t Available Vitals Date Recorded Body height Body mass index (BMI) Body weight Provider Name and Address Organization Details Last Updated DateTime 12/27/2022 182.88 cm 31.6 kg/m2 932527.[address] [facility] 12/27/2022 08:51:03 Social History None recorded. Functional [...] Diagnosis SNOMED-CT Code Diagnosis ICD10 Code Diagnosis IMO Codes Diagnosis Note 654 JUANITO NUÑEZ [address] [address] 12/27/2022 08:43:13 12/27/2022 09:01:29 Localized, primary osteoarthritis of the shoulder region 565542027 M19.019 Rupture of rotator cuff of right shoulder 2913252071 7062035 M75.101 Health Concerns Section Related Observation LastModified by Organization Detai ls LastModified Time None Recorded Concern Status LastModified by Organization Details LastModified Time None Recorded Advance Directives Directive None Recorded Payers Insurance Date Sequence Insurance Name Policy Number Policy Leigh Covered Member ID Leigh Member ID Guarantor Name 12/31/[address] [place] [address] [id number] Pete Ceballos [id number] Pete Ceballos Notes Date Note Type Note [...] tearing of the left shoulder who is symptomatic.I had a lengthy discussion with the patient regarding management including surgical treatment options for which she is adamant that he is not interested in. He states his pain keeps him up at night and he is amenable to cortisone injections of both shoulders.He understands the risks associated with cortisone injection [...] and I will have him see Dr. Schaefre in follow-up. The patient agrees with the above-noted plan.HPI:Pleasant 67-year-old male last seen on the above-noted [...] for earlier injection. SILVIA ARCE PA-C [address], [address], [place] [facility] 12/27/2022 09:30:00
--- OUTSIDE RECORDS SUMMARY | 2025-09-01 18:54 | XMS_ITS | Encounter Summary ---
Author Organization [facility] Address [address] [place] [address] Care Team Providers Care Director Of Exhibit Development Name Role Phone Ronald Desai MD Primary Care Provider Reason for Visit * Reason Onset Date Comments referral request 08/02/2025 Encounter Details Date Type Department Care Team (Late Contact Info) Description 08/02/2025 Telephone Nephrology - [place] [address] [place], [place] [phone] Marcelo Roach MD [address] [facility] 200 [place] [phone] Social History Tobacco Use Types Packs/Day Years [...] as of this encounter Progress Notes * Dionne Ramos - 08/02/2025 9:04 AM EDT Pt is calling to request the Dr refer him to a center specialists documented in this encounter Plan of Treatment Upcoming Encounters Date Type Department Care Team (Late st Contact Info) Description 09/07/2025 8:20 AM EST Office Visit [facility] [address] [facility] [address] [place] [phone] Cheko Hassan MD [address] [place] [address] Dr Rell [address] [place] [phone] 09/13/2025 3:00 PM EST Office Visit Adult [address] [phone] Ronald Desai MD [address] [place] [address] 09/22/2025 8:30 AM EST Office Visit Adult [address] [phone] Magui Pang PA [address] [place] [address] 10/28/2025 8:45 AM EST Office Visit [facility] [place] [address] [phone] David Beltre DPM [address] [phone] 11/01/2025 10:35 AM EST Office Visit Pulmonology - [place] 175 [facility] 200 [place] [address] Suzie Bates, INDUSTRIAL ELECTRICIAN [address] [place] [address] 01/25/2026 1:15 PM EDT [facility] 305 [facility] [place] [address] Marcelo Roach MD [address] [facility] 200 [place] [phone] documented as of this encounter Visit Diagnoses Not on filedocumented in this encounter Care Teams Director Of Exhibit Development Relationship Specialty Start Date End Date Ronald Desai MD [address] [place] [address] PCP - General Internal Medicine 05/17/25 documented as of this encounter
--- OUTSIDE RECORDS SUMMARY | 2025-09-01 18:54 | XMS_ITS | Clinical Summary ---
Author Organization [facility] Address [address] [place] [address] Care Team Providers Care Bakery And Deli Sales Manager Name Role Phone Ronald Desai MD Primary Care Provider [phone] Medications Medication Sig Dispensed Refills Start Date [...] age to complete this topic Care Teams Bakery And Deli Sales Manager Relationship Specialty Start Date End Date Ronald Desai MD [address] [place] [address] PCP - General Hospitalist Medicine 08/27/22
--- OUTSIDE RECORDS SUMMARY | 2025-09-01 18:54 | XMS_ITS | Encounter Summary ---
Author Organization [facility] Address [address] [place] [address] Care Team Providers Care Coping Machine Assembler Name Role Phone Ronald Desai MD Primary Care Provider Encounter Details Date Type Department Care Team (Late st Contact Info) Description 08/15/2024 Lab Requisition [facility] - Main Lab 299 [facility] [place] [phone] Rajeev Diaz MD [address] [place] [address] Dysphagia, unspecified Social History Tobacco Use Types [...] Description 09/07/2025 8:20 AM EST Office Visit [facility] [address] [facility] [address] [place] [phone] Cheko Hassan MD [address] [place] [address] Dr Zacarias [address] [place] [phone] 09/13/2025 3:00 PM EST Office Visit Adult Medicine [address] [phone] Ronald Desai MD [address] [place], [place] 09/22/2025 8:30 AM EST Office Visit Adult Medicine [address] [phone] Magui Pang PA [address] [place], [place] 10/28/2025 8:45 AM EST Office Visit [facility] - [place] 250 175 [facility] 250 [place] [phone] David Beltre DPM 175 [facility] 250 [place] [phone] 11/01/2025 10:35 AM EST Office Visit Pulmonology - [place] 175 [facility] 200 [place] [phone] Suzie Bates, RAMAN [address] [place] [address] 01/25/2026 1:15 PM EDT Office Visit Nephrology - [facility] 305 [place] [phone] Marcelo Roach MD [address] [facility] 200 [place] [address] documented as of this encounter Visit Diagnoses Diagnosis Dysphagia, unspecified documented in this encounter Additional Health Concerns Infection Onset Date Last Indicated Resolved Time Respiratory Rule-Out 11/19/2024 11/19/2024 025 11:34 PM EST COVID-19 Rule-Out 11/19/2024 11/19/2024 11/19/2024 11:34 PM EST documented as of this encounter Care Teams Coping Machine Assembler Relationship Specialty Start Date End Date Ronald Desai MD [address] [place] [address] PCP - General Internal Medicine 05/17/25 documented as of this encounter
--- OUTSIDE RECORDS SUMMARY | 2025-09-01 18:55 | XMS_ITS | Encounter Summary ---
Author Organization [facility] Address [address] [place] [address] Care Team Providers Care State Appellate Clerk Name Role Phone Ronald Desai MD Primary Care Provider Unav ailable Encounter Details Date Type Department Care Team (Late st Contact Info) Description 07/19/2023 Scanned Document [facility] 74 [place] [address] Babar Cage MD [address] [address] Social History Tobacco Use Types Packs/Day Years [...] on filedocumented in this encounter Care Teams State Appellate Clerk Relationship Specialty Start Date End Date Ronald Desai MD PCP - General Medicine Hospitalist 07/18/23 documented as of this encounter
--- OUTSIDE RECORDS SUMMARY | 2025-09-01 18:55 | XMS_ITS | Clinical Summary ---
Author Organization [facility] Address [address] [place] [address] Care Team Providers Care Waste Paper Hammermill Operator Name Role Phone Ronald Desai MD [...] 10/03/2021, 01/09/2021, Additional history exists RSV Vaccine 50 years and older and Patients (1 - 1-dose 75+ series) 2030 Hepatitis B Vaccines Aged Out No long er eligible based on patient's age to complete this topic Insurance MEDICARE MEDICARE Care Teams Waste Paper Hammermill Operator Relationship Specialty Start Date End Date Ronald Desai MD PCP - General Medicine Hospitalist 07/18/23
--- OUTSIDE RECORDS SUMMARY | 2025-09-01 18:55 | XMS_ITS | Encounter Summary ---
Author Organization [facility] Address [address] [place] [address] Care Team Providers Care Information Security Director Name Role Phone Ronald Desai MD Primary Care Provider Encounter Details Date Type Department Care Team (Late Contact Info) Description 07/19/2025 Results Follow-Up Adult [address] [phone] Magui Pang PA [address] [place] [address] Social History Tobacco Use Types Packs/Day Years [...] 8:20 AM EST Office Visit [facility] [address] La [address]za 410 [place] [address] Cheko Hassan MD [address] [place] [address] Dr Zacarias [address] [place] [address] 09/13/2025 3:00 PM EST Office Visit Adult Medicine West [address] [phone] Ronald Desai MD [address] [place] [address] 09/22/2025 8:30 AM EST Office Visit Adult Medicine [address] [phone] Magui Pang PA [address] [place] [address] 10/28/2025 8:45 AM EST Office Visit Orthopedic Surgery - [place] [address] [phone] David Beltre, DPM [address] [phone] 11/01/2025 10:35 AM EST Office Visit Pulmonology - [place] [address] [phone] Suzie Bates, PARACHUTIST/COMBATANT DIVER QUALIFIED 230 [place] [address] 01/25/2026 1:15 PM EDT Office [facility] [address] [place] [address] Marcelo Roach MD [address] [address] documented as of this encounter Visit Diagnoses Not on filedocumented in this encounter Care Teams Information Security Director Relationship Specialty Start Date End Date Ronald Desai MD [address] [place] [address] PCP - General Internal Medicine 05/17/25 documented as of this encounter
--- OUTSIDE RECORDS SUMMARY | 2025-09-01 18:55 | XMS_ITS | Encounter Summary ---
Author Organization [facility] Address [address] [place] [address] Care Team Providers Care Fuel System Maintenance Worker Name Role Phone Ronald Desai MD Primary Care Provider Unav ailable Encounter Details Date Type Department Care Team (Late st Contact Info) Description 07/19/2023 Scanned Document [facility] 74 [place] [address] Babar Cage MD [address] [address] Social History Tobacco Use Types Packs/Day Years [...] on filedocumented in this encounter Care Teams Fuel System Maintenance Worker Relationship Specialty Start Date End Date Ronald Desai MD PCP - General Medicine Hospitalist 07/18/23 documented as of this encounter
--- OUTSIDE RECORDS SUMMARY | 2025-09-01 18:55 | XMS_ITS | Clinical Summary ---
Author Organization [facility] Address [address] [address] Care Team Providers Care Spectral Scientist Name Role Phone Unavailable Primary Care Provider [...]
--- OUTSIDE RECORDS SUMMARY | 2025-09-01 18:55 | XMS_ITS | Encounter Summary ---
Author Organization [facility] Address [address] [place] [address] Care Team Providers Care General Accounting Clerk Name Role Phone Ronald Desai MD Primary Care Provider [phone] Reason for Referral * Consultation (Urgent) - Closed Specialty Diagnoses / Procedures Referred By Contac t Referred To Contact Nephrology Diagnoses NAHUN (acute kidney injury) ([facility] V24) Ronald Desai MD [address] [place] [address] Phone: tel: fax: Larry Srinivasan MD [address] [place] [address] [address] [place] [address] Phone: tel: fax: Referral ID Status Reason Start Date Expiration Date V isits Requested Visits Authorized [id number] Closed Specialty Services Required 08/17/2025 08/17/2026 1 1 Reason for Visit * Reason Onset Date Comments Referral 08/17/2025 [facility] (Dr. Larry Srinivasan, ) Encounter Details Date Type Department Care Team (Late st Contact Info) Description 08/17/2025 Telephone Adult Medicine [address] [phone] Ronald Desai MD [address] [place] [address] Social History Tobacco Use Types Packs/Day Years [...] as of this encounter Progress Notes * Valarie Ji - 08/17/2025 9:28 AM EST Copied from [facility] #[id number]. Topic: Referral - Request >> Aug 17, 2025 9:24 AM Valarie Madsen wrote: ALIYAH SAUNDERS called requesting a referral to [facility] to see Dr. Srinivasan. He wants to switch specialist. What insurance does the patient have today? HNE Referrals cannot be processed if the insurance is not accurate. If the insurance listed above is NO BILLING INFORMATION FOUND FOR THIS ENCOUNTER then the patients correct insurance must be obtainedand registered in [facility] or their referral can not be processed. Name of person calling to request this referral? Patient Referred To Provider (Include first and last name): Dr. Larry Srinivasan NPI (if known): [id number] Order/Specialty requested nephrology Chief Complaint (Note: This is not a body part or a procedure): NAHUN Has the patient seen provider for this problem/Dx before? no Referred To Provider Address: Referred To Provider Referred To Provider Does patient have an appointment scheduled?: no If yes, what is the date of the appointment?: Is this a retro request? Number of visits requested: 6 Is this appointment related to: MVA or worker compensation? no documented in this encounter Plan of Treatment Upcoming Encounters Date Type Department Care Team (Late st Contact Info) Description 09/07/2025 8:20 AM EST Office Visit [facility] [address] [place] [phone] Cheko Hassan MD [address] [place] [address] [address] [place] [phone] 09/13/2025 3:00 PM EST Office Visit Adult [address] [phone] Ronald Desai MD [address] [place] [address] 09/22/2025 8:30 AM EST Office Visit Adult [address] [phone] Magui Pang PA [address] [place] [address] 10/28/2025 8:45 AM EST Office Visit Orthopedic Surgery - [place] [address] [phone] David Beltre DPM [address] [phone] 11/01/2025 10:35 AM EST Office Visit Pulmonology - [place] 175 [facility] 200 [place] [address] Suzie Bates, BUSINESS EMPLOYMENT SPECIALIST 230 [place] [phone] 01/25/2026 1:15 PM EDT [facility] 305 [place] [address] Marcelo Roach MD [address] [facility] 200 [place] [phone] Scheduled Referrals Name Type Priority Associated Diagnoses Order Schedule Ambulatory referral to Nephrology Outpatient Referral Routine NAHUN (acute kidney injury) ([facility] V24) 1 Occurrences starting 08/17/2025 until 08/17/2026 documented as of this encounter Visit Diagnoses Diagnosis NAHUN (acute kidney injury) ([facility] V24)- Primary documented in this encounter Care Teams General Accounting Clerk Relationship Specialty Start Date End Date Ronald Desai MD [address] [place] [address] PCP - General Internal Medicine 05/17/25 documented as of this encounter
--- OUTSIDE RECORDS SUMMARY | 2025-09-01 18:55 | XMS_ITS | Encounter Summary ---
Author Organization [facility] Address [address] [place] [address] Care Team Providers Care Taxi Driver Supervisor Name Role Phone Ronald Desai MD Primary Care Provider [phone] Encounter Details Date Type Department Care Team (Late Contact Info) Description 07/26/2025 Results Follow-Up Adult [address] [phone] Ronald Desai MD [address] [place] [address] Social History Tobacco Use Types Packs/Day Years [...] Description 09/07/2025 8:20 AM EST Office Visit [facility] [address] [place] [address] Cheko Hassan MD [address] [place] [address] Dr Zacarias 410 [place] [address] 09/13/2025 3:00 PM EST Office Visit Adult Medicine West [address] [phone] Ronald Desai MD [address] [place] [address] 09/22/2025 8:30 AM EST Office Visit Adult Medicine [address] [phone] Magui Pang PA [address] [place] [address] 10/28/2025 8:45 AM EST Office Visit [facility] - [place] [address] [phone] David Beltre, DPM [address] [phone] 11/01/2025 10:35 AM EST Office Visit Pulmonology - [place] [address] [address] Suzie Bates, SENIOR DIRECTOR OF GLOBAL [employer]CIAL [employer]CH[employer]IONS 230 [place] [address] 01/25/2026 1:15 PM EDT [facility] [address] [place] [address] Marcelo Roach MD [address] [address] documented as of this encounter Visit Diagnoses Not on filedocumented in this encounter Care Teams Taxi Driver Supervisor Relationship Specialty Start Date End Date Ronald Desai MD [address] [place] [address] PCP - General Internal Medicine 05/17/25 documented as of this encounter
--- OUTSIDE RECORDS SUMMARY | 2025-09-01 18:55 | XMS_ITS | Data Portability ---
Author Organization [place] - [facility], Allergy Address [address] [place] [address] Care Team Providers Care Fur Dresser Name Role Phone JASONKASHMIR ARELLANO Primary Care Provider [phone] Assessment Encounter Date Assessment Date Assessment LastModified [...] handout. I will refer to gastroenterology for mcfp management as his symptoms are likely gastrointestinal in etiology. The patient will follow up in our office as needed. We will consider swallow study, imaging, or repeat fiberoptic laryngoscopy if symptoms persist. [email or web address] Not available 09/14/2024 15:44:15 Plan of Treatment Reminders Order Date Submit Date Provider Last Modified By Organization Details Last Modified Time Details Appointments Hearing Test Only 2024 01:00P M Hearing Test Not available Not available Not available Establish ed 15 2024 01:00P M MATTHEW VALVERDE Not available Not available Not available Lab None recorded. Referral None recorded. Procedures None recorded. Surgeries None recorded. Imaging None recorded. Medication Orders None recorded. Patient TargetsNo targets recorded. Patient InstructionsNo instructions recorded. Reason for Referral None Reported. Results Created Date Observation Date Name Description Value Unit Range Abnormal Flag Note LastModifiedBy Organization Detail LastModifiedTime 04/20/20 audio gram No observ ation record ed. [email or web address] Not Available 05/2024 16:27:09 06/03/20 24 10/28/2023 [...] ation record ed. [email or web address] Not Available 00:15:00 06/03/2008/22/2021 imagi ng/di agnos tic resul t No observ ation record ed. [email or web address] Not Available 00:15:03 06/03/20 24 09/25/2019 imagi ng/di agnos tic resul t No observ ation record ed. [email or web address] Not Available 00:15:06 Result Notes None recorded. Problems Name Problem SNOMED Code Status Onset Date Resolution Date Notes Provider Name and Address Organization Details Recorded Time Impacted cerumen 48836698 Active 2014 Impacted cerumen; Location : bilatera l CMS Risk: low risk Con dition: uncontro lled Not Available [facility] 4 02:39:37 Impacted cerumen of bilatera l ears 95242740651 Active 2015 Impacted cerumen, bilatera l; Note: Date Diagnose d: 6 9:22 AM (H61.23) Not Available [facility] 4 02:39:46 Bilatera l disorder of Eustachi an tubes 42576747575 Active 2015 Other specifie d disorder s of Eustachi an tube, bilatera l; Note: Date Diagnose d: 6 9:23 AM (H69.83) Not Available [facility] 4 02:39:41 Cellulit is of left external ear 05317233599 Active 2015 Cellulit is of left external ear; Note: Date Diagnose d: 6 9:24 AM (H60.12) Not Available [facility] 4 02:39:43 Bilatera l tinnitus 04110854915 02 Active 2015 Tinnitus , bilatera l; Note: Date Diagnose d: 6 10:22 AM (H93.13) Not Available [facility] 4 02:39:40 Otorrhea of right ear 92756199210 57610 Active 2015 Otorrhea , right ear; Note: Date Diagnose d: 6 1:45 PM (H92.11) Not Available [facility] 4 02:39:38 Candidal otitis externa 79054883 Active 2016 Candidal otitis externa; Location : right No te: Date Diagnose d: 10/17/2016 2:10 PM (B37.84) Not Available [facility] 4 02:39:39 Chronic mycotic otitis externa 148309399 Active 2016 Chronic mycotic otitis externa; Note: Date Diagnose d: 10/17/2016 2:04 PM (380.15) Not Available [facility] 4 02:39:34 Posterio r rhinorrh ea 07951507 Active 2016 Postnasa l drip; Note: Date Diagnose d: 7 2:25 PM (R09.82) Not Available [facility] 4 02:39:46 Acute pharyngi tis 666370596 Completed 201602/25/2024 Pharyngi tis (acute) NOS; Note: Date Diagnose d: 7 2:23 PM (J02.9) Note: Date Diagnose d: 7 2:23 PM (J02.9) Not Available [facility] [place] [facility] 4 01:05:05 Dizzines s and giddines s 091116539 Active 2016 Dizzines s and giddines s; Note: Date Diagnose d: 7 2:23 PM (R42) Not Available [facility] 4 02:39:45 Infectiv e otitis externa of right ear 11905120810 28777 Active 2016 Other infectiv e otitis externa, right ear; Note: Date Diagnose d: 7 11:45 AM (H60.391 ) Not Available [facility] 4 02:39:45 Infectiv e otitis externa of left ear 38888314458 09893 Active 2016 Other infectiv e otitis externa, left ear; Note: Date Diagnose d: 05/15/2017 12:29 PM (H60.392 ) Not Available [facility] 4 02:39:41 Impacted cerumen in right ear 34075178542 51232 Active 2016 Impacted cerumen, right ear; Note: Date Diagnose d: 7 10:27 AM (H61.21) Not Available [facility] 4 02:39:33 Bilatera l earache 638577370 Active 2017 Otalgia, bilatera l; Note: Date Diagnose d: 8 2:32 PM (H92.03) Not Available [facility] 4 02:39:44 Dysphagi a 63421970 Active 2017 Dysphagi a, unspecif ied; Note: Date Diagnose d: 5 3:16 PM (787.20) ; Start Date : 11/03/19 15 Dysph agia, unspecif ied; Note: Date Diagnose d: 8 2:32 PM (R13.10) Not Available [facility] 4 02:39:41 Acute frontal sinusiti s 33711983 Active 2018 Acute frontal sinusiti s, unspecif ied; Location : right No te: Date Diagnose d: 9 2:09 PM (J01.10) Not Available [facility] 4 02:39:42 Acute serous otitis media of bilatera l ears 44590233640 28673 Active 2018 Acute serous otitis media, bilatera l; Note: Date Diagnose d: 9 10:37 AM (H65.03) Not Available [facility] 4 02:39:44 Sensorin eural hearing loss of bilatera l ears 115633699 Active 2018 Sensorin eural hearing loss, bilatera l; Note: Date Diagnose d: 09/25/20 19 10:40 AM (H90.3) Not Available [facility] 4 02:39:37 Chronic pharyngi tis 294807 Active 2018 Chronic sore throat; Note: Date Diagnose d: 10/13/20 19 10:02 AM (J31.2) Not Available [facility] 4 02:39:38 Disorder of right Eustachi an tube 92720560217 35078 Active 2019 Other specifie d disorder s of Eustachi an tube, right ear; Note: Date Diagnose d: 0 1:01 PM (H69.81) Not Available [facility] 4 02:39:34 Headache 11482407 Active 2020 Headache , unspecif ied; Note: Date Diagnose d: 1 9:00 AM (R51.9) Not Available [facility] 4 02:39:40 Neck pain 52837979 Active 2020 Cervical alvarado; Note: Date Diagnose d: 9:00 AM (M54.2) Not Available [facility] 4 02:39:44 Sensorin eural hearing loss in left ear 97315238254 109 Active 2020 Sensorin eural hearing loss, unilater al, left ear, with restrict ed hearing on the contrala teral side; Note: Date Diagnose d: 9:56 AM (H90.A22 ) Not Available [facility] 4 02:39:35 Refracto ry migraine 817381676 Active 2020 Other migraine , intracta ble, without status migraino bethany; Note: Date Diagnose d: 9:53 AM (G43.819 ) Not Available [facility] 4 02:39:36 Mixed conducti ve and sensorin eural hearing loss of right ear 82528402973 105 Active 2020 Mixed conducti ve and sensorin eural hearing loss, unilater al, right ear with restrict ed hearing on the contrala teral side; Note: Date Diagnose d: 1 9:56 AM (H90.A31 ) Not Available [facility] 4 02:39:45 Acute serous otitis media of right ear 61333740996 24566 Active 2020 Acute serous otitis media, right ear; Note: Date Diagnose d: 1 9:54 AM (H65.01) Acute serous otitis media, right ear; Note: Date Diagnose d: 9 2:10 PM (H65.01) ; Start Date : 07/07/20 19 Not Available [facility] 4 02:39:36 Obstruct marina sleep apnea syndrome 57040883 Active 2022 Obstruct marina sleep apnea (adult) (pediatr ic); Note: Date Diagnose d: 3 9:18 AM (G47.33) Not Available [facility] 4 02:39:40 Allergic rhinitis 49341394 Active 2023 Other allergic rhinitis ; Note: Date Diagnose d: 4 2:26 PM (J30.89) Not Available [facility] 4 02:39:36 Impacted cerumen in left ear 82283891691 31527 Active 2023 Impacted cerumen, left ear; Note: Date Diagnose d: 12/13/2023 11:24 AM (H61.22) Not Available [facility] 4 02:39:35 Acute pharyngi tis 334788794 Active 2023 Sore throat (acute) NOS; Note: Date Diagnose d: 12/13/2023 11:24 AM (J02.9) Pharyn gitis (acute) NOS; Note: Date Diagnose d: 7 2:23 PM (J02.9) ; Start Date : 04/03/20 17 Not Available [facility] 4 02:39:43 Examinat ion of ear Active 2023 Encounte r for examinat ion of ears and hearing without abnormal findings ; Note: Date Diagnose d: 12/18/2023 11:03 AM (Z01.10) Not Available [facility] 4 02:39:37 Chronic rhinitis 53518617 Active 2023 Chronic rhinitis ; Note: Date Diagnose d: 4 4:00 PM (J31.0) Not Available [facility] 4 02:39:37 Feeling of lump in throat 731535774 Active 2023 DANNIELLE PATE MD [address] [place] [address], [place], [address] , [facility] - [facility] 4 15:14:25 Sensorin eural hearing loss of alona l ears 624387086 Active 2023 DANNIELLE PATE MD [address] [facility] [address], [place], [address] , [facility] - [facility] 4 15:14:36 Gastroes ophageal reflux disease without esophagi tis 951973842 Active 2023 ONEIDA RAE PA-C [address] [facility] [address], [facility], [address] , [facility] 4 15:43:04 Problem Notes None recorded. Procedures Surgical History Date Name Laterality Status Provider Name and Address Organization Details Recorded Time 04/17/2024 FOL_DP completed DANNIELLE PATE MD [address] [facility],[place] [address], [place], [address], [facility] 04/17/2024 15:14:16 04/17/2024 Air & Speech Audio with Tymps - 02320, 87988 & 77737 completed LUIS A MOELLER MA, CCC-A [address] [facility],[place] [address], [place], [address], [facility] 04/17/2024 14:18:53 Imaging Results None recorded. Procedure Notes None recorded. Medical Equipment None Reported. Allergies No known drug allergies Medications Name Sig Start Date Stop Date Status Note LastModified by Organization Details LastModified Time nifedipin e ER 30 mg tablet,ex tended release 24 hr TAKE 1 TABLET BY MOUTH 1 (ONE) TIME EACH DAY BEFORE BREAKFAS T. DO NOT CRUSH, CHEW, OR SPLIT. active Not Available Not Available No t Available cyclobenz aprine 10 mg tablet TAKE 1 TABLET TWICE DAILY NEEDED FOR MUSCLE SPASM.MA Y CAUSE DROWSINE SS.DONT DRIVE active Not Available Not Available No t Available Nasal [place] (oxymetaz oline) 0.05 % 08/22 completed Medicati on ID: [id number] B rand Name: Nasal [place] (oxymeta zoline) Send Method: E-Prescr ibed Sub s Allowed: subs OK Speci al Instruct ion: USE 2 SPRAY IN EACH NOSTRIL TWICE A DAY FOR 3 DAYS Med icationG enericNa me: Nasal [place] (oxymeta zoline) Not Available Not Available Not Available prednison e 10 mg tablet TAKE 4 TABS DAILY X 3DAYS 3 TABS DAILY X 3DAYS 2 TABS DAILY X 3DAYS 1 TAB DAILY X 3DAYS 04/23 completed Not Available Not Available Not Available doxycycli ne hyclate 100 mg capsule TAKE 1 CAPSULE BY MOUTH TWICE A DAY WITH FOOD FOR 10 DAYS 09/01 completed Not Available Not Available Not Available ipratropi um 0.5 mg-albute rol 3 mg (2.5 mg base)/3 mL nebulizat ion soln INHALE 3 ML INTO THE LUNGS 4 TIMES DAILY NEEDED (SOB/ WHEEZING ). active Not Available Not Available No t Available donepezil 5 mg tablet 04/05 completed Medicati on ID: [id number] B rand Name: donepezi l Send Method: E-Prescr ibed Sub s Allowed: subs OK Medic ationGen ericName : donepezi l Not Available Not Available Not Available ketoconaz ole 2 % shampoo USE 2-3X A WEEK ON THE SCALP. LEAVE IT IN FOR 5-10 MINS THEN RINSE OFF active Not Available Not Available No t Available cetirizin e 10 mg tablet TAKE 1 TABLET (10 MG TOTAL) BY MOUTH AT BEDTIME NEEDED FOR ALLERGIE S. active Not Available Not Available No t Available cefpodoxi me 200 mg tablet TAKE 1 TABLET BY MOUTH TWICE A DAY 04/23 completed Not Available Not Available Not Available azithromy mady 250 mg tablet TAKE 2 TABLETS BY MOUTH TODAY, THEN TAKE 1 TABLET DAILY FOR 4 DAYS DIRECTED 09/01 completed Not Available Not Available Not Available alprazola m 1 mg tablet 12/27 completed Medicati on ID: [id number] D uration Value: 1 Reason: () Brand Name: alprazol am Send Method: E-Prescr ibed Sub s Allowed: subs OK Speci al Instruct ion: TAKE 1 TABLET BY MOUTH EVERY DAY NEEDED FOR ANXIETY Medicati onGeneri cName: alprazol am Not Available Not Available Not Available tizanidin e 4 mg tablet TAKE 1 TABLET BY MOUTH AT BEDTIME NEEDED FOR MUSCLE SPASMS. active Not Available Not Available No t Available valacyclo vir 1 gram tablet TAKE 1 TABLET BY MOUTH THREE TIMES A DAY active Not Available Not Available No t Available prednison e 20 mg tablet TAKE 3 TABLETS FOR 2 DAYS, THEN 2 TABLETS FOR 2 DAYS, THEN 1 TABLET FOR 3 DAYS. active Not Available Not Available No t Available lovastati n 40 mg tablet 01/04 completed Medicati on ID: [id number] D uration Value: 90 Brand Name: lovastat in Send Method: E-Prescr ibed Sub s Allowed: subs OK Speci al Instruct ion: TAKE 1 TAB BY MOUTH AT BEDTIME. Medicat ionGener icName: lovastat in Not Available Not Available Not Available prednison e 5 mg tablet 04/05 completed Medicati on ID: [id number] B rand Name: predniso ne Send Method: [...] mg capsule 04/05 completed Medicati on ID: [id number] D uration Value: 90 Brand Name: fenofibr ate microniz ed Send Method: E-Prescr ibed Sub s Allowed: subs OK Speci al Instruct ion: TAKE 1 CAPSULE BY MOUTH EVERY DAY BEFORE BREAKFAS T Medica tionGene ricName: fenofibr ate microniz ed Not Available Not Available Not Available aspirin 81 mg tablet,de layed release TAKE 1 TABLET BY MOUTH 1 TIME EACH DAY. active Not Available Not Available No t Available doxycycli ne monohydra te 100 mg tablet TAKE 1 TABLET BY MOUTH TWICE A DAY FOR 10 DAYS 04/23 completed Not Available Not Available Not Available pantopraz ole 20 mg tablet,de layed release active Medicati on ID: [id number] B rand Name: pantopra zole Sen d Method: E-Prescr ibed Sub s Allowed: subs OK Medic ationGen ericName : pantopra zole Not Available Not Available Not Available pramipexo le 0.5 mg tablet TAKE 1 TABLET BY MOUTH EVERY DAY AT BEDTIME FOR 30 DAYS active Not Available Not Available No t Available Bactroban 2 % topical cream 1 a small amount to affected area 04/23 completed Medicati on ID: [id number] D uration Value: 10 Brand Name: Bactroba n Send Method: E-Prescr ibed Sub s Allowed: subs OK Medic ationGen ericName : Bactroba n Medica tion ID: [id number] D uration Value: 10 Brand Name: Bactroba n Send Method: E-Prescr ibed Sub s Allowed: subs OK Medic ationGen ericName : Bactroba n Not Available Not Available Not Available lorazepam 0.5 mg tablet 01/04 completed Medicati on ID: [id number] D uration Value: 2 Brand Name: lorazepa m Send Method: E-Prescr ibed Sub s Allowed: subs OK Speci al Instruct ion: TAKE 1 TABLET BY MOUTH EVERY DAY MAY REPEAT ONCE PRIOR TO MRI FOR ANGELA STROPHOB IA Medic ationGen ericName : lorazepa m Not Available Not Available Not Available triamcino lone acetonide 0.025 % topical cream PLEASE SEE ATTACHED FOR DETAILED DIRECTIO NS active Not Available Not Available No t Available tamsulosi n 0.4 mg capsule TAKE 1 CAPSULE BY MOUTH EVERYDAY AT BEDTIME active Not Available Not Available No t Available lorazepam 2 mg tablet TAKE PRIOR TO PROCEDUR E 04/23 completed Not Available Not Available Not Available diazepam 2 mg tablet 08/22 completed Medicati on ID: [id number] D uration Value: 60 Brand Name: diazepam [...] completed Not Available Not Available Not Available hydrocort isone 1 % topical cream APPLY TO AFFECTED AREA TWICE A DAY active Not Available Not Available No t Available pantopraz ole 40 mg tablet,de layed release TAKE 1 TABLET BY MOUTH 2 TIMES A DAY ON EMPTY STOMACH BEFORE BREAKFAS T/DINNER , WAIT 30 MINS THEN EAT active Not Available Not Available No t Available ferrous sulfate 325 mg (65 mg iron) tablet 11/04 completed Medicati on ID: [id number] B rand Name: ferrous sulfate Send Method: E-Prescr ibed Sub s Allowed: subs OK Speci al Instruct ion: TAKE 1 TABLET BY MOUTH EVERY DAY Medi cationGe nericNam e: ferrous sulfate Not Available Not Available Not Available clotrimaz ole-betam ethasone 1 %-0.05 % topical cream 04/05 completed Medicati on ID: [id number] B rand Name: clotrima zole-bet amethaso ne Send Method: E-Prescr ibed Sub s Allowed: subs OK Medic ationGen ericName : clotrima zole-bet amethaso ne Not Available Not Available Not Available losartan 25 mg tablet TAKE 1 TABLET BY MOUTH EVERY DAY active Not Available Not Available No t Available clotrimaz ole 1 % topical solution 04/23 completed Medicati on ID: [id number] D uration Value: 14 Prescri bed By Name: JUANITO Leahy nd Name: clotrima zolyan shetty Method: E-Prescr ibed Sub s Allowed: subs OK Speci al Instruct ion: 4 drops to affected ear three times a day Medi cationGe nericNam e: clotrima zole Med ication ID: [id number] D uration Value: 14 Prescri bed By Name: JUANITO Leahy nd Name: clotrima zole Sen d Method: E-Prescr ibed Sub [...] elayed release 2020 active Medicati on ID: [id number] B rand Name: omeprazo le Send Method: E-Prescr ibed Sub s Allowed: subs OK Medic ationGen ericName : omeprazo le Not Available Not Available Not Available hydrocort isone 2.5 % topical cream 12/27 completed Medicati on ID: [id number] Du ration Value: 30 Reason: () Brand [...] oral liquid 07/07 completed Medicati on ID: [id number] D uration Value: 14 Reason: () Brand Name: codeine- guaifene sin Send Method: E-Prescr ibed Sub s Allowed: subs OK Speci al Instruct ion: TAKE 5ML BY MOUTH 4 TIMES A DAY NEEDED FOR COUGH Me dication GenericN jazmín: codeine- guaifene sin Not Available Not Available Not Available furosemid e 20 mg tablet active Medicati on ID: [id number] B rand Name: furosemi de Send Method: E-Prescr ibed Sub s Allowed: subs OK Medic ationGen ericName : furosemi de Not Available Not Available Not Available gabapenti n 100 mg capsule TAKE 2 CAPSULES BY MOUTH 2 TIMES A DAY. active Not Available Not Available No t Available lorazepam 1 mg tablet USE DIRECTED TAKE 1 HOUR PRIOR TO PROCEDUR E. active Not Available Not Available No t Available polyethyl yvonne glycol 3350 17 gram/dose oral powder PLEASE SEE ATTACHED FOR DETAILED DIRECTIO NS active Not Available Not Available No t Available lovastati n 20 mg tablet 07/07 completed Medicati on ID: [id number] Du ration Value: 90 Reason: () Brand [...] Available hydroxyzi ne HCl 10 mg tablet TAKE 1 TO 2 TABLETS BY MOUTH AT BEDTIME active Not Available Not Available No t Available fluticaso ne propionat e 50 mcg/actua tion nasal spray,bethany pension INSTILL 2 SPRAYS IN EACH NOSTRIL ONCE A DAY active Not Available Not Available No t Available clotrimaz ole 1 % topical cream APPLY TOPICALL Y 2 (TWO) TIMES A DAY. RASH OVER THE GENITALS active Not Available Not Available No t Available doxycycli ne hyclate 100 mg tablet TAKE 1 TABLET BY MOUTH TWICE A DAY active Not Available Not Available No t Available dicyclomi ne 10 mg capsule active Medicati on ID: [id number] B rand Name: dicyclom ine Send Method: E-Prescr ibed Sub s Allowed: subs OK Medic ationGen ericName : dicyclom ine Not Available Not Available Not Available ipratropi um bromide 21 mcg (0.03 %) nasal spray 2 spray into both nostrils 07/07 completed Medicati on ID: [id number] Mat shetty By Name: JUANITO Leahy nd Name: Atrthelmat Send Method: E-Prescr ibed Sub s Allowed: [...] No t Available diazepam 5 mg tablet TAKE 1 TABLET BY MOUTH A HALF HOUR BEFORE MRI, NEED REPOSSESSOR FOR TRANSPOR T active Not Available Not Available No t [...] Available oxycodone 5 mg tablet TAKE 1 CAPSULE BY MOUTH 4 TIMES A DAY FOR 7 DAYS active Not Available Not Available No t Available neomycin- polymyxin -hydrocor t 3.5 mg-10,000 unit/mL-1 % ear drops,bethany p 08/22 completed Medicati on ID: [id number] P rescribe d By Name: JUANITO Cummings nd Name: [...] drops,bethany pension 08/22 completed Medicati on ID: [id number] P rescribe d By Name: JUANITO Walter nd Name: TobraDex Send Method: E-Prescr ibed Sub s Allowed: subs OK Speci al Instruct ion: Instill 4 drops in the affect ear BID for 10 days Med icationG enericNa me: TobraDex Not Available Not Available Not Available ezetimibe 10 mg tablet TAKE 1 TABLET BY MOUTH 1 TIME EACH DAY. active Not Available Not Available No t Available Vitamin D3 25 mcg (1,000 unit) tablet TAKE 1 TABLET BY MOUTH EVERY DAY active Not Available Not Available No t Available cyclobenz aprine 5 mg tablet TAKE 1 TABLET BY MOUTH AT BEDTIME NEEDED FOR MUSCLE SPASMS. MAY CAUSE DROWSINE SS.DONT DRIVE active Not Available Not Available No t Available Ciprodex 0.3 %-0.1 % ear drops,bethany pension 4 drop into both ears 04/23 completed Medicati on ID: [id number] D uration Value: 7 Prescri bed By Name: JUANITO Leahy nd Name: Ciprodex Send Method: E-Prescr ibed Sub s Allowed: subs OK Medic ationGen ericName : Ciprodex Medicat ion ID: [id number] D uration Value: 7 Prescri bed By Name: JUANITO Leahy nd Name: Ciprodex Send Method: E-Prescr ibed Sub s Allowed: subs OK Medic ationGen ericName : Ciprodex Not Available Not Available Not Available rosuvasta tin 20 mg tablet 08/22 completed Medicati on ID: [id number] B rand Name: rosuvast atin Sen d Method: E-Prescr ibed Sub s Allowed: subs OK Medic ationGen ericName : rosuvast atin Not Available Not Available Not Available duloxetin e 20 mg capsule,d elayed release TAKE 1 CAPSULE BY MOUTH 1 TIME EACH DAY. DO NOT CRUSH OR CHEW. active Not Available Not Available No t Available sodium fluoride 1.1 % dental paste 04/05 completed Medicati on ID: [id number] B rand Name: fluoride (sodium) Send Method: E-Prescr ibed Sub s Allowed: subs OK Speci al Instruct ion: USE DIRECTED Medicat ionGener icName: fluoride (sodium) Not Available Not Available Not Available fenofibra te nanocryst allized 145 mg tablet TAKE 1 TABLET BY MOUTH 1 TIME EACH DAY. active Not Available Not Available No t Available Pulmicort Flexhaler 180 mcg/actua tion breath activated 01/04 completed Medicati on ID: [id number] D uration Value: 30 Brand Name: Pulmicor t Flexhale r Send Method: E-Prescr ibed Sub s Allowed: subs OK Speci al Instruct ion: INHALE 1 PUFF INTO THE LUNGS 2 TIMES DAILY. M edicatio nGeneric Name: Pulmicor t Flexhale r Not Available Not Available Not Available diclofena c 1 % topical gel APPLY 2 G TOPICALL Y TWICE A DAY active Not Available Not Available No t Available Combivent Respimat 20 mcg-100 mcg/actua tion [...] Updated DateTime 04/17/2024 182.88 cm 31.2 kg/m2 627537.25 g Kierra Zaidi [place] - [facility] 04/17/2024 14:48:57 Date Recorded Body height Body weight Provider Name and Address Organization Details Last Updated DateTime 04/23/2024 182.88 cm 177332.25 g Leena Mixon [place] - [facility] 04/23/2024 15:45:40 Date Recorded Body height Provider Name an d Address Organization Details Last Updated DateTime 09/14/2024 182.88 cm Yvan eWbb [place] - [facility] 09/14/2024 14:28:03 Social History None recorded. Functional Status None recorded. Mental Status None recorded. Family History Nothing Reported. Medical History No medical history recorded. Past Encounters Encounter ID Performer Location Encounter Start Date Encounter Closed Date Diagnosis/Indication Diagnosis SNOMED-CT Code Diagnosis ICD10 Code Diagnosis IMO Codes Diagnosis Note [id number] DANNIELLE PATE MD [facility] [address] [address] 04/17/2024 13:21:59 04/17/2024 15:29:03 Sensorineural hearing loss of bilateral ears 075330448 H90.3 Feeling of lump in throat 297264253 R09.89 [id number] JUAN SCHAEFER MD [facility] [address] [address] 04/23/2024 15:29:40 04/23/2024 16:16:21 Headache 15179760 R51.9 Both auricles, external auditory canals and [...] al evaluation for evaluation of chronic headaches. [id number] ONEIDA RAE PA-C [facility] [address] [place] [address] 09/14/2024 14:20:38 09/14/2024 15:19:36 Feeling of lump in throat [id number] R09.89 Allergic rhinitis [id number] J30.89 Gastroesop hageal reflux disease without esophagitis [id number] K21.9 Health Concerns Section Related Observation LastModified by Organization Detai ls LastModified Time None Recorded Concern Status LastModified by Organization Details LastModified Time None Recorded Advance Directives Directive None Recorded Payers Insurance Date Sequence Insurance Name Policy Number Policy Leigh Covered Member ID Leigh Member ID Guarantor Name 09/01/2025 1 [facility] [id number] 1 Peterosaline Ceballos [id number] Pete Ceballos Notes Date Note Type Note Provider Name and Address Organization Details Recorded Time 04/17/2024 text/html ROS as noted in the HPI globusabout 6 monthspressure on ears - feels [...] some of his symptoms DANNIELLE PATE MD [address] [place] [address], [phone], [place] - [facility] 04/17/2024 15:16:04 04/23/2024 text/html Patient comes in today for evaluation of recurring facial and periauricular pressure sensation. He notes that when he bends over, he will have pressure sensation that encompasses the cheek, temporal, and ear regions bilaterally. He does not notice any fluctuations in hearing. Patient reports having head pain and headaches every single day. JUAN SCHAEFER MD [address] [facility],[address], [address], [place] - [facility] 04/23/2024 16:18:14 09/14/2024 text/html ROS as noted in the HPI 68 year old male with GERD, allergic [...] smoker. No alcohol. DANNIELLE PATE MD [address] [facility],[place] [address], [place], [phone], [facility] - [facility] 09/14/2024 16:05:07
--- OUTSIDE RECORDS SUMMARY | 2025-09-01 18:55 | XMS_ITS | Clinical Summary ---
Author Organization [facility] Address [address] [place] [address] Phone Care Team Providers Care Carpenters Name Role Phone Ronald Desai MD Primary Care Provider Allergies Active Allergy Reactions Criticality Noted Date Comments Adhesive Tape-Silicones Rash Medium 07/30/2024 House Dust Mite High 10/25/2009 Other Reaction(s): [...] (one) time each day. 02/20/20 23 Active ipratropium-alb uteroL (DUONEB) 0.5-2.5 mg/3 mL [...] (one) time each day. 12/23/19 21 Active dicyclomine (BENTYL) 10 mg capsule Take [...] nightly). 900 mL 11 08/25/20 24 Active pantoprazole (PROTONIX) 40 mg [...] day. 60 capsule 3 05/06/20 25 Active fluticasone-ume clidinium-vilan terol (Trelegy Ellipta) 100-62.5-25 mcg inhalerIndicati ons:Severe persistent asthma without complication ([facility] V28) Inhale 1 puff (100 mcg total) by mouth 1 (one) time each day. Rinse mouth with water after use to reduce aftertaste and incidence of candidiasis. Do not swallow. 1 each 2 05/11/20 25 Active DULoxetine (CYMBALTA) [address] capsule TAKE 1 CAPSULE BY MOUTH 1 TIME EACH DAY. DO NOT CRUSH OR CHEW. 90 capsule 1 06/25/20 25 Active tiZANidine (ZANAFLEX) 4 mg tablet Take 1 tablet (4 mg total) by mouth at bedtime as needed for muscle spasms. 30 tablet 2 07/15/20 25 Active NIFEdipine XL (PROCARDIA XL) 30 mg 24 hr tablet Take 1 tablet (30 mg total) by mouth 1 (one) time each day before breakfast. Do not crush, chew, or split. 90 each 3 07/27/20 25 026 Active alpha lipoic acid 600 mg tablet Take 1 tablet by mouth 1 (one) time each day. 30 tablet 2 07/28/20 25 026 Active aspirin 81 mg EC tablet Take 1 tablet (81 mg total) by mouth 1 (one) time each day. 90 tablet 3 08/04/20 25 Active sodium chloride-aloe vera (Emerson Saline) gel topical gelIndications: Obstructive sleep apnea (adult) (pediatric),Mil d persistent asthma with (acute) exacerbation 0.5 INCHES BY NASAL ROUTE 2 TIMES DAILY NEEDED FOR OTHER (NASAL DRYNESS OR CONGESTION, WITH USE OF CPAP). 30 g 3 08/24/20 25 Active cetirizine (ZyrTEC) 10 mg tablet TAKE 1 TABLET (10 MG TOTAL) BY MOUTH AT BEDTIME NEEDED FOR ALLERGIES. 90 tablet 1 08/30/20 25 Active cetirizine (ZyrTEC) 10 mg tablet Take 1 tablet (10 mg total) by mouth. 06/01/20 21 025 Discontinued(R eorder) aspirin 81 mg EC tablet Take 1 tablet (81 mg total) by mouth 1 (one) time each day. 12/05/19 24 025 Discontinued(R eorder) cetirizine (ZyrTEC) 10 mg tablet Take 1 tablet (10 mg total) by mouth at bedtime as needed for allergies. 30 tablet 08/04/20 025 Discontinued Active Problems Problem Noted Date Diagnosed Date NAHUN (acute kidney injury) ([facility] V24) 07/27/20 Severe persistent asthma without complication ([facility] V28) 05/11/2025 BPH with elevated PSA 05/06/2025 [...] outlined in detailed above. 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 He also has history of COPD and uses inhalers. Patient encouraged to follow-up with his [place] police lieutenant regularly. Heart murmur 04/19/2022 Overview (12/18/2023): Last [...] 2015 Mild chronic obstructive pul monary disease ([facility] V24, [facility] V28) 03/28/2015 Overview (12/18/2023): Dr Qiu Chronic obstructive pulmonar y disease ([facility] V24, [facility] V28) 03/28/2015 Overview (07/15/2024): Dr Qiu Dysphagia 01/27/2015 Overview (12/18/2023): Seen and evalauted by Dr. Conde Dementia ([facility] V24, [facility] V28) 10/15/2012 Overview (12/18/2023): Seen with Tabitha, now on Aricept Stage 3 chronic kidney disease ([facility] V24, [facility] V28) 01/06/2012 Sleep apnea 06/01/2011 Overview (12/18/2023): [facility] Home Sleep Apnea Test: Date 11/06/2022; [...] Encounters Date Type Department Care Team Description 08/17/2025 Telephone Adult Medicine [address] [phone] Ronald Desai MD 08/11/2025 8:30 AM EDT Office Visit Pulmonology - [place] [address] [place] [address] Suzie Bates NP Severe persistent asthma without complication (CMS/HCC V28) (Primary Dx); Chronic obstructive pulmonary disease, unspecified COPD type (CMS/HCC V24, CMS/HCC V28); Obstructive sleep apnea syndrome; Cognitive impairment; Obesity (BMI 30-39.9) 08/04/2025 8:30 AM EDT Office Visit Adult Medicine [address] [phone] Ronald Desai MD Allergic rhinitis, unspecified seasonality, unspecified trigger (Primary Dx); Catarrh of both eustachian tubes; Primary hypertension; Muscle twitching; Cognitive impairment 08/03/2025 10:30 AM EDT Office Visit Vascular Surgery - [place] [address] [place] [address] Melyssa Navarrete PA Muscle twitching (Primary Dx); S/P cervical spinal fusion; Spinal stenosis of cervical region; Spinal stenosis of lumbar region with neurogenic claudication 08/02/[address] [phone] Ronald Desai MD 08/02/[address] [phone] Marcelo Roach MD 07/29/2025 9:30 AM EDT Consult Orthopedic [facility] [address] [facility] [address] [place] [phone] Jade Dorantes PA Arthritis of both shoulders (Primary Dx); Bursitis of both shoulders 07/29/[address] [phone] Ronald Desai MD 07/28/2025 3:45 PM EDT Office Visit Orthopedic Surgery [facility] [address] [facility] [address] [place] [phone] David Beltre, DPM Plantar fascial fibromatosis (Primary Dx); Neuritis; Difficulty walking; Pain in toe of left foot; Pain in toe of right foot; Dermatophytosis of nail; Diabetic mononeuropathy simplex (CMS/HCC V24, CMS/HCC V28) 07/27/2025 3:15 PM EDT Office Visit Nephrology [address] [phone] Marcelo Roach MD NAHUN (acute kidney injury) (CMS/HCC V24) (Primary Dx); Stage 3a chronic kidney disease (CMS/HCC V24, CMS/HCC V28); Primary hypertension 07/26/2025 Results Follow-Up [address] [phone] Ronald Desai MD 07/19/2025 Results Follow-Up [address] [phone] Magui Pang PA 07/15/2025 11:30 AM EDT Office Visit Adult [address] [phone] Magui Pang PA Chronic pain of both shoulders (Primary Dx); Cervical radiculopathy 07/15/2025 11:27 AM EDT - 07/15/2025 11:59 PM EDT Hospital Encounter XRAY - [address] [phone] Chronic pain of both shoulders; Cervical radiculopathy Discharge Disposition: Home or Self Care 07/15/2025 11:26 AM EDT - 07/15/2025 11:59 PM EDT Hospital Encounter [address] [phone] Chronic pain of both shoulders; Cervical radiculopathy Discharge Disposition: Home or Self Care 06/18/2025 Telephone Adult Medicine [address] [phone] Ronald Desai MD 06/10/2025 11:30 AM EDT - 06/10/2025 11:59 PM EDT Hospital Encounter [facility] [address] [place] [phone] Discharge Disposition: Home or Self Care 06/10/2025 8:14 AM EDT - 06/10/2025 11:59 PM EDT Hospital Encounter [facility] [address] [place] [phone] scan, pelvis; Elevated PSA Discharge Disposition: Home or Self Care 06/07/2025 Telephone Adult Medicine [address] [phone] Ronald Desai MD 06/04/2025 8:15 AM EDT - 06/04/2025 11:59 PM EDT Hospital Encounter CT Scan - [address], [place] [phone] Bilateral hip pain; Abnormal x-ray of pelvis Discharge Disposition: Home or Self Care 06/03/2025 9:30 AM EDT Office Visit [address] [phone] Ronald Desai MD Bilateral hip pain (Primary Dx); Abnormal x-ray of pelvis; Fibromyalgia; Abnormal CT scan, pelvis; Elevated PSA 06/02/[address] [phone] Ronald Desai MD from Last 3 Months Immunizations Immunization Administration Dates Next Due H1N1 Inj Preservative [...] HISTORICAL SHOULDER SURGERY NASAL SEPTUM SURGERY PROCEDURE: MD SEPTOPLASTY/SUBMUCOUS RESECJ W/WO CARTILAGE GRF UPPER GASTROINTESTINAL ENDOSCOPY 07/28/2009 PROCEDURE: MD UPPER GI ENDOSCOPY PERFORMED; COMMENT: R/o Laurent's esophagus-biopsy:mild chronic inflammation, mild gastritis-biopsy:gastritis (HPylori+), normal duodenum-biopsy:Nl HERNIA REPAIR PROCEDURE: HISTORICAL HERNIA REPAIR/UMB; COMMENT: dr. mcneil HERNIA REPAIR 10/29/2018 PROCEDURE: REPAIR UMBILICAL HERNIA; COMMENT: Dr. Mcneil Medical History Medical History Date Comments Mental disorder DX:Mental disord er GERD (gastroesophageal reflu x disease) DX:GERD (gastroesophageal re flux disease) COPD (chronic obstructive pu lmonary disease) ([facility] V24, [facility] V28) DX:COPD (chronic o bstructive pulmonary disease) ([facility]) Hypertension DX:Hypertension Kidney damage DX:Kidney damage Dementia ([facility] V24, [facility] V28) DX:Dementia ([facility]) Sleep apnea DX:Sleep apnea Esophageal reflux DX:Esophageal reflux Disorder DX:Disorder Cervicalgia DX:Cervicalgia; COMMENT: s/p Dr. Ellis , bone spur Allergic rhinitis, cause unspecified 05/06/2007 DX:Allergic rhinitis, cause unspecified Nevus, non-neoplastic DX:Nevus, non-neoplastic Esophageal reflux DX:Esophageal reflux Mild chronic obstructive pul monary disease ([facility] V24, [facility] V28) 03/28/2015 DX:Mild chronic obs tructive pulmonary disease (HCC) Abnormality of gait 07/04/2007 DX:Abnormali ty of gait Adjustment disorder with mix ed anxiety and depressed mood 03/29/2010 DX:Adjustment disorder with mixed anxiety and depressed mood CKD (chronic kidney disease) stage 3, GFR 30-59 ml/min ([facility] V24, [facility] V28) 01/06/2012 DX:CKD (chronic kidney disea se) stage 3, GFR 30-59 ml/min ([facility]) Cognitive disorder 02/07/2011 DX:Cognitive disorder; COMMENT: Seen with Justin Lu 01/2011: Dementia ([facility] V24, [facility] V28) 10/15/2012 DX:Dementia ([facility]); COMMENT: Seen with Tabitha, now on Aricept [...] Sign Reading Time Taken Comments Blood Pressure 130/80 08/11/2025 8:41 AM EDT Pulse 80 08/11/2025 8:41 AM EDT Temperature 36.4 C (97.6 F) 08/11/2025 8:41 AM EDT Respiratory Rate 16 08/11/2025 8:41 AM EDT Oxygen Saturation 98% 08/11/2025 8:41 AM EDT Inhaled Oxygen Concentration - - Weight 108 kg (238 lb) 08/11/2025 8:41 AM EDT Height 182.9 cm (6') 08/11/2025 8:41 AM EDT Body Mass Index 32.28 08/11/2025 8:41 AM EDT Plan of Treatment Upcoming Encounters Date Type Department Care Team (Late st Contact Info) Description 09/07/2025 8:20 AM EST Office Visit [facility] [address] [place] [phone] Cheko Hassan MD [address] [place] [address] Dr Zacarias [address] [place] [phone] 09/13/2025 3:00 PM EST Office Visit Adult [address] [phone] Ronald Desai MD [address] [place] [address] 09/22/2025 8:30 AM EST Office Visit Adult Medicine [address] [phone] Magui Pang PA [address] [place] [address] 10/28/2025 8:45 AM EST Office Visit Orthopedic Surgery - [place] [address] [facility] [address] [place] [phone] David Beltre DPM [address] [phone] 11/01/2025 10:35 AM EST Office Visit Pulmonology [facility] [address] [facility] [address] [place] [phone] Suzie Bates, POUNCING MACHINE OPERATOR [address] [place] [phone] 01/25/2026 1:15 PM EDT [facility] [address] [place] [phone] Marcelo Roach MD [address] [facility] [address] [place] [phone] Health Maintenance Due Date Last Done Comments Diabetes: Annual Foot Exam 1965 Diabetes: Annual Retina Eye Exam 1965 Hepatitis A Vaccines (1 of 2 - Risk 2-dose series) 1974 RSV Immunization Adult Patients (1 - Risk 50-74 years 1-dose series) 2005 Hepatitis B Vaccines (1 of 3 - Risk 3-dose series) 2015 Colorectal Cancer Screening: Stool Based Tests (FOBT/FIT) 09/22/2022 Falls Risk Assessment 09/22/2022 Medicare Annual Wellness Visit 09/22/2022 Social Influencers of Health Screening 09/22/2022 Depression Screening 10/14/2024 Influenza Vaccine (#1) 2025 , 07/16/2022, 07/07/2021, Additional history exists Diabetes: Annual Urine Albumin-Creatinine Ratio (uACR) 07/28/2025 04/30/2024 Diabetes: Blood Sugar Control Test (HGBA1C) 07/28/2025 10/27/2024, 05/22/2023 COVID-19 Vaccine (8 - Pfizer risk season) 2026 08/06/2025, 10/28/2023, 08/24/2022, Additional history exists Diabetes: Annual GFR (Glomerular Filtration Rate) 07/26/2026 07/26/2025, 10/27/2024, 04/30/2024, Additional history exists Hypertension/CHF/CAD Annual BMP Blood Test 07/26/2026 07/26/2025, 10/27/2024, 04/30/2024, Additional history exists DTaP,Tdap,and Td Vaccines (3 - Td or Tdap) 07/16/2027 07/16/2017, 05/28/2007 Pneumococcal Vaccine: 50+ Years (3 of 3 - PCV20 or PCV21) 08/17/2027 08/17/2022, 07/15/2018 Cholesterol Screening (Lipid Panel) 07/26/2030 07/26/2025, 10/27/2024, 04/30/2024, Additional history exists Hepatitis C Screening Completed 06/09/2007 Zoster Vaccines [...] Procedure Name Priority Date/Time Associated Diagnosis Comments MD ARTHROCENTESIS/ASPI RATION/INJECTION MAJOR JOINT/BURSA W/O U/S GUIDANCE Routine 07/29/2025 9:30 AM EDT Arthritis of both shoulders Bursitis of both shoulders BASIC METABOLIC PANEL Routine 07/26/2025 8:57 AM EDT Stage 3a chronic kidney disease ([facility] V24, [facility] V28) LIPID PANEL WITH REFLEX TO DIRECT LDL Routine 07/26/2025 8:57 AM EDT Mixed hyperlipidemia XR CERVICAL SPINE 4-5 VIEWS Routine 07/15/2025 11:47 AM EDT Chronic pain of both shoulders Cervical radiculopathy XR SHOULDER 2+ VIEWS BILAT Routine 07/15/2025 11:46 AM EDT Chronic pain of both shoulders Cervical radiculopathy NM BONE/JOINT SCAN WHOLE BODY Routine 06/10/2025 12:[address] scan, pelvis Elevated PSA CT PELVIS WO CONTRAST Routine 06/04/2025 8:31 AM EDT Bilateral hip pain Abnormal x-ray of pelvis HEMOGLOBIN A1C Routine 10/27/2024 9:11 AM EST Primary hypertension Mixed hyperlipidemia Chronic obstructive pulmonary disease, unspecified COPD type ([facility] V24, [facility] V28) Obstructive sleep apnea syndrome Gastroesophageal reflux disease without esophagitis Stage 3a chronic kidney disease ([facility] V24, [facility] V28) Lumbar radiculopathy S/P cervical spinal fusion Cognitive impairment Muscle twitching URINE ALBUMIN CREATININE RATIO Routine 04/30/2024 COLONOSCOPY Routine 04/03/2024 HEPATITIS C SCREENING Routine 06/09/2007 from Last 3 Months or Most Recently Relevant to Health Maintenance Results * MD ARTHROCENTESIS/ASPIRATION/INJECTION MAJOR JOINT/BURSA W/O U/S GUIDANCE (07/29/2025 9:30 AM EDT) Jade Helton PA - 07/29/2025 9:30 AM EDT MATTHEW Mendez 07/29/2025 12:48 PM L Inj/Asp: bilateral subacromial bursa Indications: pain Details: 22 G needle, anterolateral approach Medications (Right): 3 mL lidocaine 1 %; 40 mg triamcinolone acetonide 40 mg/mL Medications (Left): 3 mL lidocaine 1 %; 40 mg triamcinolone acetonide 40 mg/mL Informed Consent: Laterality: Bilateral Relevant images/test results available and reviewed: yes Health status cleared: Yes Procedure/treatment, purpose, treatment alternatives, risks/potential complications and benefits explained: yes Risk/complications/benefits details: Risks of infection, thinning of the skin and temporary skin discoloration discussed. Discussed risks of temporary increased pain after injection and swelling and mild redness at injection site for couple days. Explained occasionally cortisone injection can cause facial flushing temporarily. Benefits pain management. For postop injection pain ice, Tylenol and/or NSAIDs if patient can take Patient questions answered: yes Patient agrees, verbalizes understanding, and wants to proceed: yes Consent given by: Patient Informed consent discussion completed by Physician/RONNY with patient: Verbal Pre-procedure timeout performed: yes us Jade CASTRO IN CLINIC/BEDSIDE ORDERABLES Final Result * (ABNORMAL) Lipid panel with reflex to direct LDL (07/26/2025 8:57 AM EDT) Cholesterol 203(H) 0 - 200 mg/dL LAB CHEMISTRY METHOD 07/26/2025 12:25 PM EDT [facility] Triglycerides 168(H) 0 - 150 mg/dL LAB CHEMISTRY METHOD 07/26/2025 12:25 PM EDT [facility] HDL 47 >=40 mg/dL LAB CHEMISTRY METHOD 07/26/2025 12:25 PM EDT [facility] LDL Calculated 122(H) 0 - 100 mg/dL LAB CHEMISTRY METHOD 07/26/2025 12:25 PM EDT [facility] Comment:Estimated LDL Calcul ated using equation: Total cholesterol - HDL cholesterol - (Triglycerides/5) VLDL Cholesterol [place] 33.6 mg/dL LAB CHEMISTRY METHOD 07/26/2025 12:25 PM EDT [facility] Non HDL Chol. (LDL+VLDL) 156(H) <145 mg/dL LAB CHEMISTRY METHOD 07/26/2025 12:25 PM T [facility] Chol/HDL Ratio 4.3 0.0 - 4.4 LAB CHEMISTRY METHOD 07/26/2025 12:25 PM T [facility] Blood Venous blood specimen / Unknown Venipuncture / Unknown 07/26/2025 8:57 AM EDT 07/26/2025 8:57 AM EDT us Ronald Desai MD LAB BLOOD ORDERABLES Final Result [facility] [address] [place] [address], * (ABNORMAL) Basic metabolic panel (07/26/2025 8:57 AM EDT) Sodium 141 133 - 145 mmol/L LAB CHEMISTRY METHOD 07/26/2025 12:23 PM T [facility] Potassium 4.8 3.5 - 5.5 mmol/L LAB CHEMISTRY METHOD 07/26/2025 12:23 PM [facility] Chloride 109 96 - 110 mmol/L LAB CHEMISTRY METHOD 07/26/2025 12:23 PM EDT [facility] CO2 26 21 - 32 mmol/L LAB CHEMISTRY METHOD 07/26/2025 12:23 PM [facility] Anion Gap 6 3 - 11 LAB CHEMISTRY METHOD 07/26/2025 12:23 PM [facility] Glucose 95 70 - 100 mg/dL LAB CHEMISTRY METHOD 07/26/2025 12:23 PM [facility] BUN 21 5 - 25 mg/dL LAB CHEMISTRY METHOD 07/26/2025 12:23 PM [facility] Creatinine 1.96(H) 0.70 - 1.30 mg/dL LAB CHEMISTRY METHOD 07/26/2025 12:23 PM [facility] eGFR 36(L) >=60 mL/min/1. 73m2 LAB CHEMISTRY METHOD 07/26/2025 12:23 PM [facility] Comment:Calculation based on the Chronic Kidney Disease Epidemiology Collaboration (CKD-EPI) equation refit without adjustment for race. BUN/Creatinine Ratio 10.7 LAB CHEMISTRY METHOD 07/26/2025 12:23 PM [facility] Calcium 8.8 8.5 - 10.5 mg/dL LAB CHEMISTRY METHOD 07/26/2025 12:23 PM [facility] Blood Venous blood specimen / Unknown Venipuncture / Unknown 07/26/2025 8:57 AM EDT 07/26/2025 8:57 AM EDT us Ronald Desai MD LAB BLOOD ORDERABLES Final Result [facility] [address] [place] [address], * XR Cervical Spine 4-5 Views (07/15/2025 11:47 AM EDT) Anatomical Region Laterality Modality Spine, C-spine Radiographic Светлана ging 07/16/2025 1:12 AM EDT Narrative 07/16/2025 1:15 AM EDT Cervical spine, 4 views. History neck pain. No prior plain films are available for comparison. There is posterior fusion between the C5 and C7 vertebra and anterior fusion with discectomy at C3-4 and C4-5 levels as well as some disc prosthesis at C5-6 and C6-7 levels as well as anterior fusion. There is narrowing of the C3 and C4 neural foramina. Other neural foramen is are obscured by the surgical metal. No obvious acute fractures or dislocations. CONCLUSIONS: Extensive post surgical changes. Please see details in the report. -------- FINAL REPORT -------- Dictated By: Karis Gtz Dictated Date: 07/16/2025 01:12 ET Assigned Physician: Karis Gtz Reviewed and Electronically Signed By: Karis Gtz Signed Date: 07/16/2025 01:15 ET Workstation ID: [id number] Transcribed By: Self Edit Transcribed Date: 07/16/2025 01:12 ET Procedure Note Karis Gtz MD - 07/16/2025 Cervical spine, 4 views. History neck pain. No prior plain films are available for comparison. There is posterior fusion between the C5 and C7 vertebra and anteriorfusion with discectomy at C3-4 and C4-5 levels as well as some discprosthesis at C5-6 and C6-7 levels as well as anterior fusion. There isnarrowing of the C3 and C4 neural foramina. Other neural foramen is areobscured by the surgical metal. No obvious acute fractures ordislocations. CONCLUSIONS: Extensive post surgical changes. Please see details in thereport. -------- FINAL REPORT -------- Dictated By: Karis Gtz Dictated Date: 07/16/2025 01:12 ET Assigned Physician: Karis Gtz Reviewed and Electronically Signed By: Karis Gtz Signed Date: 07/16/2025 01:15 ET Workstation ID: [id number] Transcribed By: Self Edit Transcribed Date: 07/16/2025 01:12 ET [facility] Jennifer CASTRO IMG XR PROCEDURES Final Result * XR Shoulder 2+ Views bilat (07/15/2025 11:46 AM EDT) Anatomical Region Laterality Modality Upper Extremities, Shoulder Bilateral Radi ographic Imaging 07/16/2025 1:16 AM EDT Narrative 07/16/2025 1:17 AM EDT Bilateral shoulders, 4 views of each. History chronic pain. There are bilateral degenerative changes in the glenohumeral joint and right AC joint. There is no fractures, dislocations or abnormal soft tissue calcifications. CONCLUSIONS: Degenerative changes. No fractures or dislocations. -------- FINAL REPORT -------- Dictated By: Karis Gtz Dictated Date: 07/16/2025 01:16 ET Assigned Physician: Karis Gtz Reviewed and Electronically Signed By: Karis Gtz Signed Date: 07/16/2025 01:17 ET Workstation ID: [id number] Transcribed By: Self Edit Transcribed Date: 07/16/2025 01:16 ET Procedure Note Karis Gtz MD - 07/16/2025 Bilateral shoulders, 4 views of each. History chronic pain. There are bilateral degenerative changes in the glenohumeral joint andright AC joint. There is no fractures, dislocations or abnormal softtissue calcifications. CONCLUSIONS: Degenerative changes. No fractures or dislocations. -------- FINAL REPORT -------- Dictated By: Karis Gtz Dictated Date: 07/16/2025 01:16 ET Assigned Physician: Karis Gtz Reviewed and Electronically Signed By: Karis Gtz Signed Date: 07/16/2025 01:17 ET Workstation ID: [id number] Transcribed By: Self Edit Transcribed Date: 07/16/2025 01:16 ET Magui CASTRO IMG XR PROCEDURES Final Result * NM Bone/Joint Scan Whole Body (06/10/2025 [...] Signed Date: 06/17/2025 14:53 ET Workstation ID: [id number] Transcribed By: Self Edit Transcribed Date: 06/17/2025 [...] Signed Date: 06/17/2025 14:53 ET Workstation ID: [id number] Transcribed By: Self Edit Transcribed Date: 06/17/2025 14:49 ET us Ronald Desai MD IMG NM PROCEDURES Final Res ult * CT [...] Signed Date: 06/04/2025 14:22 ET Workstation ID: [id number] Transcribed By: Self Edit Transcribed Date: 06/04/2025 [...] Signed Date: 06/04/2025 14:22 ET Workstation ID: [id number] Transcribed By: Self Edit Transcribed Date: 06/04/2025 13:59 ET Ronald Desai MD IMG CT PROCEDURES Final Res ult * Hemoglobin A1c (10/27/2024 9:11 AM EST) [facility] Hemoglobin A1C 5.5 <6.5 % LAB CHEMISTRY METHOD 10/27/2024 9:24 PM EST [facility] Mean Bld Glu Estim. 111 mg/dL LAB CHEMISTRY METHOD 10/27/2024 9:24 PM EST [facility] Blood Venous blood specimen / Unknown Venipuncture / Unknown 10/27/2024 9:11 AM EST 10/27/2024 9:11 AM EST Ronald Desai MD LAB BLOOD ORDERABLES Final Result [facility] [address] [place] [address], * Urine Albumin Creatinine Ratio (04/30/2024) [facility] Urine Albumin Creatinine Ratio abstracted Historical [facility] Final Result * Colonoscopy (04/03/2024) [facility] Colonoscopy no interpretation , abstracted Anatomical Region Laterality Modality Other Historical [facility] Final Result * Hepatitis C Screening (06/09/2007) [facility] Hepatitis C Screening abstracted Historical [facility] Final Result from Last 3 Months or Most Recently Relevant to Health Maintenance Insurance [employer] Advance Directives Documents on File Type Date Recorded 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
--- OUTSIDE RECORDS SUMMARY | 2025-09-01 18:55 | XMS_ITS | Encounter Summary ---
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 He has one on 03/26/23 but he is checking in for a sooner appointment. PT says [place] told him to call our office. documented in this encounter Plan of Treatment Not on file documented as of this encounter Visit Diagnoses Not on filedocumented in this encounter
== END 2025-09-01 10:24 | disposition home or self-care (01) ==
LOC: HO.HKAS 10:02
PROVIDERS: PCP Internal Medicine; Visit Provider Internal Medicine Hypertension Specialist
DX: N18.9 Chronic kidney disease, unspecified (principal)
CPT/HCPCS: 99204

== ENCOUNTER 2025-09-01 10:01 | Outpatient (REF) | payer MEDICARE, SELFPAY ==
[2025-09-01 13:11] LABS: Appearance Urine Clear; Glucose Urine UA Negative (Negative); PH 5.5 (5.0-9.0); Specific Gravity - Urine 1.025 (1.005-1.025)
[2025-09-01 13:44] LABS: MANUAL DIFF FLAG NO
[2025-09-01 13:58] LABS: Hematocrit 42.1 % (42.0-52.0); Hemoglobin 13.8 g/dl (14.0-18.0); Imm Gran Abs Auto 0.02 X10*3/uL (0.00-0.03); Imm Gran Pct Auto 0.3 % (0.0-0.4); Lymphocytes Absolute Auto 1.3 X10*3/uL (1.2-4.9); Mean Corpuscular HGB Conc 32.8 g/dl (31.0-36.0); Mean Corpuscular Hemoglobin 30.0 pg (27.0-33.0); Mean Corpuscular Volume 91.5 fL (80.0-98.0); NRBC Abs Auto 0.000 X10*3/uL (0.0-0.012); NRBC Pct Auto 0.0 /100WBC (0.0-0.2); Platelet Count 236 X10*3/uL (160-400); Red Blood Count 4.60 X10*6/uL (4.60-5.80); White Blood Count 6.0 X10*3/uL (4.8-10.8)
[2025-09-01 14:33] LABS: Parathyroid Hormone Intact 34.1 pg/mL (8.7-77.1)
[2025-09-01 14:36] LABS: Total Protein Urine Random 11 mg/dL (<12)
[2025-09-01 20:02] LABS: Alanine Aminotransferase 35 U/L (0-40); Albumin Level 4.5 g/dL (3.5-5.0); Alkaline Phosphatase 78 U/L (39-117); Anion Gap 13 (12-20); Aspartate Amino Transferase 33 U/L (5-37); Blood Urea Nitrogen 20 mg/dL (9-16); Calcium 9.2 mg/dL (8.4-10.2); Carbon Dioxide 26 mmol/L (22-29); Chloride 106 mmol/L (96-108); Estimated Glomerular Filt Rate 36; Potassium 4.0 mmol/L (3.3-5.1); Sodium 141 mmol/L (135-145); Total Protein 7.2 g/dL (6.5-8.0); Uric Acid 5.2 mg/dL (3.4-7.0)
== END 2025-09-01 10:02 | disposition home or self-care (01) ==
LOC: HO.HKASLDS 10:01
PROVIDERS: PCP Internal Medicine; Visit Provider Internal Medicine Hypertension Specialist
DX: I12.9 Hypertensive chronic kidney disease with stage 1 through stage 4 chronic kidney disease, or unspecified chronic kidney disease (principal); N18.30 Chronic kidney disease, stage 3 unspecified; Z79.82 Long term (current) use of aspirin; Z79.899 Other long term (current) drug therapy
CPT/HCPCS: 36415; 80053; 81003; 82306; 82570; 83970; 84156; 84550; 85025; 99202

== ENCOUNTER 2025-09-22 09:25 | Outpatient (AMB) | payer MEDICARE, SELFPAY ==
[2025-09-22 09:25] VITALS: BP 138/72; PULSE 88; O2SAT 97; BMI 32.7
--- NOTE | 2025-09-22 09:25 | HO.NEPHOV ---
Vital Signs 09/22/25 09:25 Height 6 ft Weight 241 lb BMI 32.7 BP 138/72 Blood Pressure Location Lt brachial Position Sitting Pulse 88 Pulse Source Pulse Oximeter Pulse Oximetry (%) 97 Oxygen Delivery Method Room Air Intake Visit Reasons: 3wk f/u w/labs Community Engagement Specialist Required: No Accompanied by: Self / Same As Patient Allergies adhesive tape Allergy (Verified 09/22/25 09:30) Itching atorvastatin Allergy (Verified 09/22/25 09:30) Muscle cramps mite-Dermatophagoides farinae, thomas (dust mite - [place]) Allergy (Verified 09/22/25 09:30) Unknown pravastatin Allergy (Verified 09/22/25 09:30) Unknown Medication List - Last Reconciled 09/22/25 by Larry Srinivasan MD albuterol sulfate 90 mcg/actuation 2 puffs inhalation Q4-6H PRN ascorbate calcium (vitamin C) 500 mg PO DAILY aspirin 81 mg PO DAILY Held on 07/30/24. Instructions: Resume on 08/02/24. cetirizine (All Day Allergy (cetirizine)) 10 mg PO DAILY PRN cholecalciferol (vitamin D3) (Vitamin D3) 25 mcg PO DAILY coenzyme Q10 (Co Q-10) 100 mg PO DAILY cyanocobalamin (vitamin B-12) (Vitamin B-12) 250 mcg PO DAILY diclofenac sodium 1% 2 grams topical QID ezetimibe 10 mg PO DAILY fenofibrate nanocrystallized 145 mg PO DAILY fluticasone propionate 50 mcg/actuation 1 spray intranasal DAILY oqlelfodzob-fddhvqmmf-qiqbwvzd 100-62.5-25 mcg (Trelegy Ellipta) 1 inh inhalation DAILY gabapentin 200 mg PO BID PRN ipratropium-albuterol 0.5 mg-3 mg(2.5 mg base)/3 mL 3 mL inhalation Q6H PRN loratadine (Allergy Relief (loratadine)) 10 mg PO DAILY multivit with min-folic acid 80 mcg (Centrum Adult 50 Plus) 1 tab PO DAILY nifedipine ER 30 mg PO QAM pantoprazole 40 mg PO QAM tamsulosin 0.4 mg PO BEDTIME tizanidine 4 mg PO BEDTIME PRN zinc gluconate 25 mg PO DAILY HPI Comments Details: The patient is a 69-year-old male presenting for evaluation of declining kidney function. He reports his kidney function has decreased to 35% from a prior baseline of 50-55% and is concerned about the continued decline. The etiology of his kidney condition is unknown to him. Previously seen by different nephrologists and is not happy with the care and hence he has switched His medical history is significant for mild hypertension, for which he takes losartan 25 mg, and high cholesterol. He denies any history of diabetes. He also has a history of hepatic steatosis of unknown severity and a kidney cyst. The patient underwent spinal surgery in July of last year and continues to experience soreness in his arms and hip pain with muscle tightness, which can be severe enough to wake him from sleep. He also reports issues with balance. He reports nocturia, with urination approximately every hour at night. He notes a high PSA level but is unaware if he has had proteinuria. He had a kidney ultrasound a couple of months ago at [place] and previously saw urology and rheumatology. Current medications include CoQ10, baby aspirin, and pantoprazole once daily. He denies the use of NSAIDs, tobacco, or alcohol. History of renal cyst she was seen by Dr. Blevins in the past. 09/22/25 HEre for followup. No new compliants Meds reviewed On Nifiedipine; Not on Losartan [facility] Medical History (Updated 09/01/25 @ 10:22 by Larry Srinivasan MD) Fatty liver Thoracic and lumbosacral neuritis Abnormality of gait Dysplastic nevi Tear of supraspinatus tendon Renal cyst Adjustment disorder with mixed anxiety and depressed mood Mixed hyperlipidemia Cognitive impairment Lung nodule Cervical radiculopathy Spinal stenosis of lumbar region Nuclear sclerosis of both eyes Elevated PSA Disorder of both eustachian tubes Bilateral tinnitus Cellulitis of left ear Posterior rhinorrhea Dizziness and giddiness Habitual snoring Obesity (BMI 30-39.9) Methacholine challenge positive Gallbladder polyp Hepatomegaly Dysphagia Otalgia of both ears Cervical spinal stenosis Acute frontal sinusitis Bilateral acute serous otitis media Chronic pharyngitis Muscle cramps Herpes simplex infection Sensorineural hearing loss of both ears Migraine Neck pain Mixed conductive and sensorineural hearing loss of right ear Heart murmur Dyspnea on exertion HTN (hypertension) Arthritis Impingement syndrome of shoulder region Incomplete tear of right rotator cuff Epigastric discomfort Osteoarthritis Peripheral neuropathy Sensation of lump in throat Allergic rhinitis Lumbar radiculopathy Muscle twitch Sleep apnea Asthma COPD (chronic obstructive pulmonary disease) High cholesterol GERD (gastroesophageal reflux disease) Chronic kidney disease, stage 3 History of dementia Surgical History Hx of nasal septoplasty Hx of umbilical hernia repair History of esophagogastroduodenoscopy (EGD) Hx of shoulder surgery Hx of neck surgery Hx of hernia repair H/O colonoscopy Status post lumbar spinal fusion Hx of decompressive lumbar laminectomy Family History Mother Arthritis Father Arthritis Social History Household Members: None Household Members Other:: cousin Housing: House Are you a primary special needs caregiver to a significant other at home: No Do you presently have visiting nurse or other home services: No Alcohol intake: never Patient Tobacco Use Status: Never used Tobacco service: No Current occupational status: unemployed Physical Exam Vital Signs: Last Vital Signs Pulse 88 09/22/25 09:25 BP 138/72 09/22/25 09:25 Pulse Ox 97 09/22/25 09:25 Oxygen Delivery Method Room Air 09/22/25 09:25 BMI result Body Mass Index 32.7 Comfortable Neck supple no JVD. Lungs entry equal no rales. Heart S1-S2 heard no gallop or rub. Abdomen soft nontender. Neuro alert awake oriented. No asterixis. Extremities no edema. Results Reviewed Nephrology Results: Hgb, (14.0-18.0) 13.8 g/dl L 09/01/25 WBC, (4.8-10.8) 6.0 X10*3/uL 09/01/25 Plt Count, (160-400) 236 X10*3/uL 09/01/25 Sodium, (135-145) 141 mmol/L 09/01/25 Potassium, (3.3-5.1) 4.0 mmol/L 09/01/25 Chloride, (96-108) 106 mmol/L 09/01/25 Carbon Dioxide, (22-29) 26 mmol/L 09/01/25 BUN, (9-16) 20 mg/dL H 09/01/25 Creatinine, (0.5-1.4) 1.87 mg/dL H 09/01/25 Calcium, (8.4-10.2) 9.2 mg/dL 09/01/25 PTH Intact, (8.7-77.1) 34.1 pg/mL 09/01/25 Urine Protein, (Neg-Trace) Negative mg/dL 09/01/25 Urine Creatinine 205.42 mg/dL 09/01/25 Assessment & Plan Assessment & Plan (1) CKD (chronic kidney disease): Code(s): N18.9 - Chronic kidney disease, unspecified Category: Medical Plan 69-year-old man with CKD 3. All lab data reviewed Urine sediments are benign Most isaiah has hypoertensive nephrosclerosis Obstruction should be ruled out in his middle-aged man. Has follow up with Urology next week Increase p.o. fluid intake to maintain adequate hydration. Maintain blood pressure less than 130/80. Continue to avoid nephrotoxic agents including NSAIDs and IV contrast dye. . Orders: Orders Basic Metabolic Panel 6 Weeks N18.9 - Chronic kidney disease, unspecified Coding Level of Care Code Est Pt Level 4 (66568) Diagnoses CKD (chronic kidney disease) N18.9
== END 2025-09-22 09:56 | disposition home or self-care (01) ==
LOC: HO.HKAS 09:26
PROVIDERS: PCP Internal Medicine; Visit Provider Internal Medicine Hypertension Specialist
DX: N18.9 Chronic kidney disease, unspecified (principal)
CPT/HCPCS: 99214

== ENCOUNTER → 2025-09-22 09:25 | Outpatient (BNVA) | payer MEDICARE, SELFPAY | PROVIDERS: PCP Internal Medicine; Visit Provider Internal Medicine Hypertension Specialist | DX: I12.9 Hypertensive chronic kidney disease with stage 1 through stage 4 chronic kidney disease, or unspecified chronic kidney disease (principal); N18.30 Chronic kidney disease, stage 3 unspecified; Z79.899 Other long term (current) drug therapy | CPT/HCPCS: 99212 ==